=== PATIENT | female | born 1960 | race Caucasian/White ===

== ENCOUNTER 2017-09-19 09:38 | Inpatient (IN) | payer BC, SELFPAY ==
[2017-09-19] VITALS (11 sets, daily range): BP systolic 125–147; BP diastolic 63–82; PULSE 58–80; RESP 16–20; TEMP 36.7–37.1; O2SAT 96–99; BMI 35.4
--- NOTE | 2017-09-19 10:00 | EKG12_ITS ---
Test Reason : DYSRHYTHMIA Blood Pressure : / mmHG Vent. Rate : 071 BPM Atrial Rate : 071 BPM P-R Int : 144 ms QRS Dur : 086 ms QT Int : 394 ms P-R-T Axes : 049 051 073 degrees QTc Int : 428 ms Normal sinus rhythm Normal ECG Confirmed by ANTONIO BRENNAN, VICTOR HUGO ([id number]), brands editor LEANDRA WALTERS ([id number]) on 09/24/2017 2:44:13 PM Referred By: KAVITA Confirmed By:VICTOR HUGO ALVAREZ MD
--- NOTE | 2017-09-19 10:00 | RAD_ITS ---
STUDY: X-RAY CHEST REASON FOR EXAM: Female, 57 years old. Cough, confusion TECHNIQUE: Single AP portable view of the chest. COMPARISON: None. FINDINGS: EKG leads overlie the chest The lungs are clear and expanded. There is no demonstrated pleural abnormality. Normal size heart. Normal mediastinum and pricilla. Normal visualized pulmonary arteries. Normal visualized aortic arch and descending thoracic aorta. Normal visualized thoracic spine. Normal visualized ribs, clavicles, and shoulders. There is no demonstrated abnormality of the visualized soft tissue structures of the upper abdomen. RAD/Chest 1 View IMPRESSION: Normal x-ray examination of the chest. Electronically Signed: Chad Boston MD at 10:55 EDT , Service support ,
--- NOTE | 2017-09-19 10:00 | CT_ITS ---
STUDY: CT BRAIN WITHOUT CONTRAST REASON FOR EXAM: Female, 57 years old. Headache x1 week, dizziness RADIATION DOSAGE (If Supplied By Facility): CTDIvol = ( 44.99 ) mGy, DLP = ( 796.11 ) mGycm TECHNIQUE: Transaxial CT imaging of the brain was performed without administration of intravenous contrast material. Individualized dose optimization techniques were used for this CT. COMPARISON: None. FINDINGS: Normal soft tissue structures. Normal calvarium. There is asymmetric edema in the right frontal lobe suggesting either previous infarct or underlying lesion. Further evaluation with contrasted CT or MRI recommended. There is no midline shift, there is some subtle mass effect upon the sulci and gyral pattern in the right frontal lobe. There is no intracranial hemorrhage. There are no findings of an acute ischemic infarction. Normal visualized paranasal sinuses. CT/Brain/Head without Contrast IMPRESSION: No acute hemorrhage but there is abnormal hypoattenuation in the right frontal lobe suggesting subacute infarct or underlying lesion. Recommend further evaluation with contrasted CT or MRI. There is no midline shift. N.B. : The above information has been verbally conveyed by Chad Boston MD to Satish Jj, Covering Physician, on 09/19/2017 10:53:50 (ET). Electronically Signed: Chad Boston MD at 10:54 EDT , Service support ,
[2017-09-19 10:25] LABS: Absolute Lymphocyte Count 1.34 X10^3/ul (0.83-4.51); Absolute Neutrophil Count 11.3 X10^3/uL (2.0-7.7); Basophil# 0.01 X10^3/uL; Basophil% 0.1 % (0-1); Hematocrit 39.2 % (37-47); Hemoglobin 12.8 g/dl (12.0-15.0); Lymphocyte # 1.34 X10^3/ul (4.0); Lymphocyte % 10.1 % (19-41); Mean Corp Hgb Conc 32.7 g/gl (32-36); Mean Corpuscular Hgb 29.6 pg (27.0-32.0); Mean Corpuscular Volume 90.7 fL (81-99); Mean Platelet Vol. 10.2 fl (6.2-12.0); Monocyte# 0.54 X10^3/uL; Monocyte% 4.1 % (0-10); Neutrophil # 11.32 X10^3/uL (2.7-7.7); Neutrophil % 85.5 % (47-70); Platelet Count 272 K/mm3 (150-450); RBC Distribution Width SD 43.2 fl (35.1-43.9); Red Blood Count 4.32 M/mm3 (4.2-5.4); White Blood Count 13.2 K/mm3 (4.4-11.0)
[2017-09-19 10:27] LABS: POSITIVE COUNT NO; POSITIVE DIFFERENTIAL NO; POSITIVE MORPHOLOGY NO
[2017-09-19 10:45] LABS: Anion Gap 7 (5-15); BUN 14 mg/dL (7-18); Calcium,Total 9.1 mg/dL (8.5-10.1); Chloride 107 mmol/L (98-107); Creatinine, Serum 0.74 mg/dL (0.55-1.02); EST Glomerular Filtration Rate 87 mL/min (>60); Est Glom Filt Rate - Afr Amer 105 mL/min (>60); Estimated Creatinine Clearance 77.29 ml/min; Glucose 183 mg/dL (74-106); Potassium 3.6 mmol/L (3.5-5.1); Sodium Level 141 mmol/L (136-145)
[2017-09-19 10:59] LABS: Partial Thromboplast Time 32.9 Seconds (24.1-36.2)
[2017-09-19 11:01] LABS: Bedside Glucose 173 mg/dL (70-110)
--- NOTE | 2017-09-19 11:07 | CT_ITS ---
STUDY: CT BRAIN WITH CONTRAST REASON FOR EXAM: Female, 57 years old. Confusion, headache RADIATION DOSAGE (If Supplied By Facility): CTDIvol = ( 44.99 ) mGy, DLP = ( 846.73 ) mGycm TECHNIQUE: Transaxial CT imaging of the brain was performed post contrast administration. The examination was performed with intravenous administration of 50 ml of Isovue 370 contrast material. Individualized dose optimization techniques were used for this CT. COMPARISON: None. FINDINGS: Normal soft tissue structures. Normal calvarium. There is no suspicious lesion after contrast administration. There is persistent hypoattenuation in the right frontal/temporal region consistent with subacute infarct. There is no midline shift but there is subtle mass effect upon the sulci and gyral pattern within the right frontal lobe. Normal size ventricles and extra-axial spaces for the patient's age. Normal white matter tracts of the cerebral hemispheres. Normal basal ganglia and thalami. Normal brainstem. Normal cerebellum. There is no intracranial hemorrhage. There are no findings of an acute ischemic infarction. Normal visualized paranasal sinuses. CT/Brain/Head WITH Contrast IMPRESSION: No suspicious enhancement after contrast demonstration to suspect an underlying mass lesion. Persistent hypoattenuation the right frontal/temporal region consistent with subacute infarct. No acute hemorrhage. Electronically Signed: Chad Boston MD at 11:29 EDT , Service support ,
[2017-09-19] MEDS: Ondansetron 4 MG/2 ML Vial IV (11:33)
[2017-09-19] MEDS: Morphine 4 MG/ML Syringe IV (11:33)
--- NOTE | 2017-09-19 12:05 | ED.VISSUMM ---
- ER Visit Summary Date of Service: 09/19/17 Chief Complaint: Weakness and headache History of Present Illness: The patient is a 57 F who presents with headache and weakness. She complains of a gradual onset frontal headache over the past 1 week. She currently rates this as a 7 out of 10. No fall no injury. She states she has difficulty concentrating. She also has noticed some weakness and tingling in her left arm over the past week. No slurred speech or speech difficulty. No recent illness otherwise. No fevers chest pain shortness of breath vomiting diarrhea. She has a history of RSD but no other medical history such as diabetes hypertension hyperlipidemia. Physical Examination: Afebrile vitals are unremarkable Moist mucous membranes Heart regular rate and rhythm Lungs are clear Abdomen soft Patient alert and oriented NIH stroke scale is 2 she does have some mild left facial droop as well as decreased sensation to light touch of the left arm and left leg she has some weakness in the left hand but does not have drift in the left arm she has no ataxia Test Results: EKG shows sinus rhythm at a rate of 71. Labs notable for white blood cell count 13.2. Coagulation studies normal. Troponin negative. Chest x-ray normal. CT the head shows no acute hemorrhage there is abnormal in attenuation in the right frontal lobe concerning for subacute infarct versus an underlying mass lesion. CT head and IV contrast shows no suspicious enhancement to suggest underlying mass so this is more suggestive of subacute infarct. Emergency Department Course and Treatment: As above. Patient was unable to get an MRI due to a history of spinal stimulator. Patient notes that the stimulator itself has been removed but she still has the leads in place and was told that she cannot get an MRI. I did discuss the patient with Dr. Boucher and patient will undergo further inpatient workup. Patient to be admitted under the hospitalist service. Treatment Plan: [] Disposition: Admit Impression: Subacute right frontal stroke This note was generated with [employer] dictation software. It may contain incorrect words, spelling, and punctuation that were not noted in review of the chart prior to signing ED Disposition - Plan for ED Patient: Chief Complaint: Confusion Referrals: Sammi Rowley MD [Primary Care Provider] -
--- NOTE | 2017-09-19 12:08 | ED.DCSUM_ITS ---
- ER Visit Summary Date of Service: 09/19/17 Chief Complaint: Weakness and headache History of Present Illness: The patient is a 57 F who presents with headache and weakness. She complains of a gradual onset frontal headache over the past 1 week. She currently rates this as a 7 out of 10. No fall no injury. She states she has difficulty concentrating. She also has noticed some weakness and tingling in her left arm over the past week. No slurred speech or speech difficulty. No recent illness otherwise. No fevers chest pain shortness of breath vomiting diarrhea. She has a history of RSD but no other medical history such as diabetes hypertension hyperlipidemia. Physical Examination: Afebrile vitals are unremarkable Moist mucous membranes Heart regular rate and rhythm Lungs are clear Abdomen soft Patient alert and oriented NIH stroke scale is 2 she does have some mild left facial droop as well as decreased sensation to light touch of the left arm and left leg she has some weakness in the left hand but does not have drift in the left arm she has no ataxia Test Results: EKG shows sinus rhythm at a rate of 71. Labs notable for white blood cell count 13.2. Coagulation studies normal. Troponin negative. Chest x -ray normal. CT the head shows no acute hemorrhage there is abnormal in attenuation in the right frontal lobe concerning for subacute infarct versus an underlying mass lesion. CT head and IV contrast shows no suspicious enhancement to suggest underlying mass so this is more suggestive of subacute infarct. Emergency Department Course and Treatment: As above. Patient was unable to get an MRI due to a history of spinal stimulator. Patient notes that the stimulator itself has been removed but she still has the leads in place and was told that she cannot get an MRI. I did discuss the patient with Dr. Boucher and patient will undergo further inpatient workup. Patient to be admitted under the hospitalist service. Treatment Plan: [] Disposition: Admit Impression: Subacute right frontal stroke This note was generated with [employer] dictation software. It may contain incorrect words, spelling, and punctuation that were not noted in review of the chart prior to signing ED Disposition - Plan for ED Patient: Chief Complaint: Confusion Referrals: Sammi Rowley MD [Primary Care Provider] -
--- NOTE | 2017-09-19 12:09 | NURSING ---
DR ROLDAN FOR DR WALLS
--- NOTE | 2017-09-19 12:25 | NURSING ---
DR ROLDAN IN WITH PATIENT
--- NOTE | 2017-09-19 12:27 | NURSING ---
110 PROBABLE SUBACUTE RT FRONTAL/TEMPORAL INFARCT, HYPERGLYCEMIA ASHELFAH
--- NOTE | 2017-09-19 12:38 | PCM.HP.STD ---
Problem List (1) Hyperglycemia Status: Acute (2) Acute ischemic stroke Status: Acute (3) Chronic back pain Status: Chronic (4) Anxiety Status: Chronic (5) Reflex sympathetic dystrophy Status: Chronic History of Present Illness Date of Admission: 09/19/17 Chief Complaint: Confusion, headache, left arm weakness. The patient is a 57 year old F with past medical history as mentioned above presented to the emergency room because of confusion, headache and left arm weakness. Patient's daughter mentioned that his mother has been confused and acting unusual at home for the last week. She mentioned that she forgot water running in the kitchen and forgot to close the house door. The patient went to visit her daughter at work today and her daughter mentioned that she was talking to me and was looking past me and she seemed confused. The patient complained of one-week history of headache, both frontal and occipital headache, throbbing headache, 7 out of 10 in severity, not radiating, no associated symptoms and no aggravating or relieving factors. Patient denied blurred vision or slurred speech but her daughter stated that her speech was not normal for the last few days. The patient complains also of left hand and arm numbness and weakness that has been going on for the same duration 1 week. The patient mentioned that her driving skills are getting badly worse and this morning, she was driving on the opposite shantel without knowing. She mentioned that lately, she does not look to have left side when she drives backward and this has been going on for the last week. She does have minimal left facial droop. In the emergency department, her vital signs were stable. Her NIH stroke was 2. She is not a candidate for TPA because her symptoms started 1 week ago. Her routine blood work remarkable for hyperglycemia and mild leukocytosis which is likely reactive. Chest x-ray showed no acute findings. CT scan brain without contrast showed right frontal lobe abnormal hypoattenuation suggestive of subacute infarction. MRI brain, to be done because patient had spinal cord stimulator that was removed but still have the connectors and she was informed that she cannot have an MRI. CT scan brain with contrast revealed no suspicious enhancing lesions, no masses, revealed persistent hypoattenuation on the right frontal/temporal region consistent with subacute infarct. Her EKG revealed normal sinus rhythm without evidence of acute ischemic changes or cardiac arrhythmias. She is being admitted for subacute right frontal/temporal infarct and hypoglycemia. Past Medical History Past Medical History (Chronic Problems): Chronic Problems Chronic back pain (Chronic) Anxiety (Chronic) Reflex sympathetic dystrophy (Chronic) Allergies acetaminophen [From Darvocet-N] Adverse Reaction (Verified 09/19/17 09:40) Nausea hydrocodone [From Vicodin] Adverse Reaction (Verified 09/19/17 09:40) Other pentazocine [From Talwin] Adverse Reaction (Verified 09/19/17 09:40) Other propoxyphene [From Darvocet-N] Adverse Reaction (Verified 09/19/17 09:40) Nausea Home Medications: Ambulatory Orders Medication Instructions Recorded ALPRAZolam [Xanax] 1 mg PO QHS 09/19/17 Celecoxib [Celebrex] 200 mg PO QHS 09/19/17 Methadone HCl [(None)] 10 mg PO Q8H 09/19/17 Oxycodone HCl/Acetaminophen 1 tablet PO TID PRN PRN 09/19/17 [Percocet 5/325] Surgical History: cholecystectomy, - - Spinal cord stimulator, status post removal, still have the connectors and wires. Psychiatric History: Anxiety [employer] History: No pertinent [employer] history Smoking Status: Former smoker Alcohol: None Drugs: None - *Family History Maternal History Items: Heart Disease, Hypertension, No pertinent history Review of Systems Constitutional: Denies: Anorexia, Chills, Fever, Weakness Eyes: Denies: Blurred vision, Double vision, Drainage, Redness HEENT: Denies: Difficulty Hearing, Ear Pain, Eye Pain, Nasal Congestion, Sore Throat Cardiovascular: Denies: Chest Pain, Chest Pressure, Chest Tightness, Heaviness, Light Headedness, Palpitations, Syncope Respiratory: Denies: Cough, Pleuritic Pain, Shortness of Breath, Sputum production, Wheezing Gastrointestinal: Denies: Abdominal Pain, Constipation, Diarrhea, Nausea, Vomiting Genitourinary: Denies: Dysuria, Frequency, Hematuria Musculoskeletal: Denies: Arm Pain, Back Pain, Foot Pain Skin: Denies: Dryness, Rash Neurological: Reports: Change in Speech, Confusion, Focal weakness, Headaches, Numbness, Tingling. Denies: Balance problems, Blurred vision Psychiatric: Reports: Anxiety. Denies: Depression, Suicidal Ideations Endocrine: Denies: Change in Body Habitus, Polydipsia VTE Information - Inpt Only VTE Present on Admission: No VTE Mechan Device Prophylaxis: None VTE Pharm Prophylaxis ordered?: Yes Patient Problems: Active and Suspected Problems Hyperglycemia (Acute) Acute ischemic stroke (Acute) - Physical Exam General: Alert, Oriented x3, Cooperative, No apparent distress HEENT: Atraumatic, PERRLA, EOMI, Normocephalic Oral: Moist Mucosa, No Gingival or Mucosal Lesions/ Ulcerations Neck: Supple, No JVD, Negative Carotid Bruits, Trachea Midline, Thyroid Normal Size and Texture Lungs: Clear to auscultation, Normal air movement, No rhonchi, No wheeze, No rales Cardiovascular: Regular rate, Regular Rhythm, Normal S1, Normal S2, No murmurs Abdomen: Bowel Sounds Present, Soft, Non Tender, Non-Distended, No Hepato-splenomegaly Extremities: No clubbing, No cyanosis, No edema Skin: No rashes, No breakdown Lymphatic: No Cervical, Supraclavicular, or Inguinal Adenopathy Neurological: - - Minimal left-sided facial droop, other cranial nerves are intact. Minimal weakness on the left upper extremity, normal power on all other limbs. Left-sided neglect. Psych/Mental Status: Normal Affect, Appropriate, Alert and oriented to time, place, person, mood and affect Vital Signs Temp Pulse Resp BP Pulse Ox 98.1 F 67 18 145/82 H 99 09/19/17 09:40 09/19/17 11:26 09/19/17 11:26 09/19/17 11:26 09/19/17 11:26 Oxygen Delivery Method Room Air Weight: 213 lb 2.992 oz Body Mass Index (BMI) 35.4 Finger Stick Blood Glucose 173 Laboratory Tests Past 24 Hrs 09/19/17 09/19/17 09/19/17 10:07 10:07 10:07 WBC 13.2 H RBC 4.32 Hgb 12.8 Hct 39.2 MCV 90.7 MCH 29.6 MCHC 32.7 RDW 13.0 RDW Differential 43.2 Plt Count 272 MPV 10.2 Immature Gran % (Auto) 0.200 Neut % (Auto) 85.5 H Lymph % (Auto) 10.1 L Dodge % (Auto) 4.1 Eos % (Auto) 0.0 Baso % (Auto) 0.1 Absolute Neuts (auto) 11.3 H Absolute Lymphs (auto) 1.34 Total Counted Not Reportable PT 13.0 INR 1.0 APTT 32.9 Sodium 141 Potassium 3.6 Chloride 107 Carbon Dioxide 27.0 Anion Gap 7 BUN 14 Creatinine 0.74 Estim Creat Clear Calc 77.29 Est GFR (MDRD) Af Amer 105 Est GFR (MDRD) Non-Af 87 BUN/Creatinine Ratio 19.0 Glucose 183 H Calcium 9.1 Troponin I < 0.015 POC Glucose 09/19/17 10:53 POC Glucose 173 H Clinical Impression(s) from Imaging Studies Brain CT 09/19/17 10:00 IMPRESSION: No acute hemorrhage but there is abnormal hypoattenuation in the right frontal lobe suggesting subacute infarct or underlying lesion. Recommend further evaluation with contrasted CT or MRI. There is no midline shift. N.B. : The above information has been verbally conveyed by Chad Boston MD to Satish Jj, Covering Physician, on 09/19/2017 10:53:50 (ET). Electronically Signed: Chad Boston MD at 10:54 EDT , Service support , Chest X-Ray 09/19/17 10:00 IMPRESSION: Normal x-ray examination of the chest. Electronically Signed: Chad Boston MD at 10:55 EDT , Service support , Brain CT 09/19/17 11:07 IMPRESSION: No suspicious enhancement after contrast demonstration to suspect an underlying mass lesion. Persistent hypoattenuation the right frontal/temporal region consistent with subacute infarct. No acute hemorrhage. Electronically Signed: Chad Boston MD at 11:29 EDT , Service support , Assessment/Plan All Active Problems Hyperglycemia (Acute) Acute ischemic stroke (Acute) This is a 57 presented to the emergency room because of headache, left arm weakness, left-sided neglect and confusion and she was found to have right frontal/temporal region subacute infarct as well as hyperglycemia without history of diabetes she is being admitted for evaluation and treatment. #1 headache/left facial droop/left-sided neglect/left arm weakness and numbness: CT scan brain with contrast revealed subacute infarction of the right frontal/temporal region. She has no risk factors for stroke. No significant family history of recurrent stroke. MRI brain cannot be done because she has spinal cord stimulator connectors. Her blood pressure this time stable. Her symptoms started 1 week ago, she is not a candidate for TPA. Plan: Admit to PCU, cardiac monitoring, NIH stroke scale, lipid profile, start aspirin and Lipitor, 2D echocardiogram, bilateral carotid Doppler, neurology consult, PT OT evaluation and treatment. #2 hyperglycemia: Without history of diabetes. Blood sugar was 183, repeat sugar was 173. Plan: Accu-Cheks every 6 hours, hemoglobin A1c. #3 chronic back pain: Status post removal of spinal cord stimulator few years ago, chronic tubes are still in place. Plan to continue methadone and Percocet as needed for pain. #4 anxiety: Continue Xanax nightly. #5 reflex sympathetic dystrophy: Continue methadone and Percocet as needed for pain. #6 DVT prophylaxis: Subcu Lovenox. This note was generated with [employer] dictation software. It may contain incorrect words, spelling, and punctuation that were not noted in checking the note before signing. Code Visit Inpatient E&M: 27876 Init Hosp L3
--- NOTE | 2017-09-19 12:49 | HP.PCM_ITS ---
Problem List (1) Hyperglycemia Status: Acute (2) Acute ischemic stroke Status: Acute (3) Chronic back pain Status: Chronic (4) Anxiety Status: Chronic (5) Reflex sympathetic dystrophy Status: Chronic History of Present Illness Date of Admission: 09/19/17 Chief Complaint: Confusion, headache, left arm weakness. The patient is a 57 year old F with past medical history as mentioned above presented to the emergency room because of confusion, headache and left arm weakness. Patient's daughter mentioned that his mother has been confused and acting unusual at home for the last week. She mentioned that she forgot water running in the kitchen and forgot to close the house door. The patient went to visit her daughter at work today and her daughter mentioned that she was talking to me and was looking past me and she seemed confused. The patient complained of one-week history of headache, both frontal and occipital headache , throbbing headache, 7 out of 10 in severity, not radiating, no associated symptoms and no aggravating or relieving factors. Patient denied blurred vision or slurred speech but her daughter stated that her speech was not normal for the last few days. The patient complains also of left hand and arm numbness and weakness that has been going on for the same duration 1 week. The patient mentioned that her driving skills are getting badly worse and this morning, she was driving on the opposite shantel without knowing. She mentioned that lately, she does not look to have left side when she drives backward and this has been going on for the last week. She does have minimal left facial droop. In the emergency department, her vital signs were stable. Her NIH stroke was 2. She is not a candidate for TPA because her symptoms started 1 week ago. Her routine blood work remarkable for hyperglycemia and mild leukocytosis which is likely reactive. Chest x-ray showed no acute findings. CT scan brain without contrast showed right frontal lobe abnormal hypoattenuation suggestive of subacute infarction. MRI brain, to be done because patient had spinal cord stimulator that was removed but still have the connectors and she was informed that she cannot have an MRI. CT scan brain with contrast revealed no suspicious enhancing lesions, no masses, revealed persistent hypoattenuation on the right frontal/temporal region consistent with subacute infarct. Her EKG revealed normal sinus rhythm without evidence of acute ischemic changes or cardiac arrhythmias. She is being admitted for subacute right frontal/temporal infarct and hypoglycemia. Past Medical History Past Medical History (Chronic Problems): Chronic Problems Chronic back pain (Chronic) Anxiety (Chronic) Reflex sympathetic dystrophy (Chronic) Allergies acetaminophen [From Darvocet-N] Adverse Reaction (Verified 09/19/17 09:40) Nausea hydrocodone [From Vicodin] Adverse Reaction (Verified 09/19/17 09:40) Other pentazocine [From Talwin] Adverse Reaction (Verified 09/19/17 09:40) Other propoxyphene [From Darvocet-N] Adverse Reaction (Verified 09/19/17 09:40) Nausea Home Medications: Ambulatory Orders Medication Instructions Recorded ALPRAZolam [Xanax] 1 mg PO QHS 09/19/17 Celecoxib [Celebrex] 200 mg PO QHS 09/19/17 Methadone HCl [(None)] 10 mg PO Q8H 09/19/17 Oxycodone HCl/Acetaminophen 1 tablet PO TID PRN PRN 09/19/17 [Percocet 5/325] Surgical History: cholecystectomy, - - Spinal cord stimulator, status post removal, still have the connectors and wires. 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 Smoking Status: Former smoker Alcohol: None Drugs: None - *Family History Maternal History Items: Heart Disease, Hypertension, No pertinent history Review of Systems Constitutional: Denies: Anorexia, Chills, Fever, Weakness Eyes: Denies: Blurred vision, Double vision, Drainage, Redness HEENT: Denies: Difficulty Hearing, Ear Pain, Eye Pain, Nasal Congestion, Sore Throat Cardiovascular: Denies: Chest Pain, Chest Pressure, Chest Tightness, Heaviness, Light Headedness, Palpitations, Syncope Respiratory: Denies: Cough, Pleuritic Pain, Shortness of Breath, Sputum production, Wheezing Gastrointestinal: Denies: Abdominal Pain, Constipation, Diarrhea, Nausea, Vomiting Genitourinary: Denies: Dysuria, Frequency, Hematuria Musculoskeletal: Denies: Arm Pain, Back Pain, Foot Pain Skin: Denies: Dryness, Rash Neurological: Reports: Change in Speech, Confusion, Focal weakness, Headaches, Numbness, Tingling. Denies: Balance problems, Blurred vision Psychiatric: Reports: Anxiety. Denies: Depression, Suicidal Ideations Endocrine: Denies: Change in Body Habitus, Polydipsia VTE Information - Inpt Only VTE Present on Admission: No VTE Mechan Device Prophylaxis: None VTE Pharm Prophylaxis ordered?: Yes Patient Problems: Active and Suspected Problems Hyperglycemia (Acute) Acute ischemic stroke (Acute) - Physical Exam General: Alert, Oriented x3, Cooperative, No apparent distress HEENT: Atraumatic, PERRLA, EOMI, Normocephalic Oral: Moist Mucosa, No Gingival or Mucosal Lesions/ Ulcerations Neck: Supple, No JVD, Negative Carotid Bruits, Trachea Midline, Thyroid Normal Size and Texture Lungs: Clear to auscultation, Normal air movement, No rhonchi, No wheeze, No rales Cardiovascular: Regular rate, Regular Rhythm, Normal S1, Normal S2, No murmurs Abdomen: Bowel Sounds Present, Soft, Non Tender, Non-Distended, No Hepato- splenomegaly Extremities: No clubbing, No cyanosis, No edema Skin: No rashes, No breakdown Lymphatic: No Cervical, Supraclavicular, or Inguinal Adenopathy Neurological: - - Minimal left-sided facial droop, other cranial nerves are intact. Minimal weakness on the left upper extremity, normal power on all other limbs. Left-sided neglect. Psych/Mental Status: Normal Affect, Appropriate, Alert and oriented to time, place, person, mood and affect Vital Signs Temp Pulse Resp BP Pulse Ox 98.1 F 67 18 145/82 H 99 09/19/17 09:40 09/19/17 11:26 09/19/17 11:26 09/19/17 11:26 09/19/17 11:26 Oxygen Delivery Method Room Air Weight: 213 lb 2.992 oz Body Mass Index (BMI) 35.4 Finger Stick Blood Glucose 173 Laboratory Tests Past 24 Hrs 09/19/17 09/19/17 09/19/17 10:07 10:07 10:07 WBC 13.2 H RBC 4.32 Hgb 12.8 Hct 39.2 MCV 90.7 MCH 29.6 MCHC 32.7 RDW 13.0 RDW Differential 43.2 Plt Count 272 MPV 10.2 Immature Gran % (Auto) 0.200 Neut % (Auto) 85.5 H Lymph % (Auto) 10.1 L [place] % (Auto) 4.1 Eos % (Auto) 0.0 Baso % (Auto) 0.1 Absolute Neuts (auto) 11.3 H Absolute Lymphs (auto) 1.34 Total Counted Not Reportable PT 13.0 INR 1.0 APTT 32.9 Sodium 141 Potassium 3.6 Chloride 107 Carbon Dioxide 27.0 Anion Gap 7 BUN 14 Creatinine 0.74 Estim Creat Clear Calc 77.29 Est GFR (MDRD) Af Amer 105 Est GFR (MDRD) Non-Af 87 BUN/Creatinine Ratio 19.0 Glucose 183 H Calcium 9.1 Troponin I < 0.015 POC Glucose 09/19/17 10:53 POC Glucose 173 H Clinical Impression(s) from Imaging Studies Brain CT 09/19/17 10:00 IMPRESSION: No acute hemorrhage but there is abnormal hypoattenuation in the right frontal lobe suggesting subacute infarct or underlying lesion. Recommend further evaluation with contrasted CT or MRI. There is no midline shift. N.B. : The above information has been verbally conveyed by Chad Boston MD to Satish Jj, Covering Physician, on 09/19/2017 10:53:50 (ET). Electronically Signed: Chad Boston MD at 10:54 EDT , Service support , Chest X-Ray 09/19/17 10:00 IMPRESSION: Normal x-ray examination of the chest. Electronically Signed: Chad Boston MD at 10:55 EDT , Service support , Brain CT 09/19/17 11:07 IMPRESSION: No suspicious enhancement after contrast demonstration to suspect an underlying mass lesion. Persistent hypoattenuation the right frontal/temporal region consistent with subacute infarct. No acute hemorrhage. Electronically Signed: Chad Boston MD at 11:29 EDT , Service support , Assessment/Plan All Active Problems Hyperglycemia (Acute) Acute ischemic stroke (Acute) This is a 57 presented to the emergency room because of headache, left arm weakness, left-sided neglect and confusion and she was found to have right frontal/temporal region subacute infarct as well as hyperglycemia without history of diabetes she is being admitted for evaluation and treatment. #1 headache/left facial droop/left-sided neglect/left arm weakness and numbness : CT scan brain with contrast revealed subacute infarction of the right frontal/ temporal region. She has no risk factors for stroke. No significant family history of recurrent stroke. MRI brain cannot be done because she has spinal cord stimulator connectors. Her blood pressure this time stable. Her symptoms started 1 week ago, she is not a candidate for TPA. Plan: Admit to PCU, cardiac monitoring, NIH stroke scale, lipid profile, start aspirin and Lipitor, 2D echocardiogram, bilateral carotid Doppler, neurology consult, PT OT evaluation and treatment. #2 hyperglycemia: Without history of diabetes. Blood sugar was 183, repeat sugar was 173. Plan: Accu-Cheks every 6 hours, hemoglobin A1c. #3 chronic back pain: Status post removal of spinal cord stimulator few years ago, chronic tubes are still in place. Plan to continue methadone and Percocet as needed for pain. #4 anxiety: Continue Xanax nightly. #5 reflex sympathetic dystrophy: Continue methadone and Percocet as needed for pain. #6 DVT prophylaxis: Subcu Lovenox. This note was generated with [employer] dictation software. It may contain incorrect words, spelling, and punctuation that were not noted in checking the note before signing. Code Visit Inpatient E&M: 27962 Init Hosp L3
--- NOTE | 2017-09-19 13:11 | CDU_ITS ---
Reason For Study: CVA Rt. Velocities/BP Lt. Velocities/BP Prox CCA 89.1/13.5 cm/sec. Prox CCA 98.5/24.6 cm/sec. Mid CCA 69.2/15.8 cm/sec. Mid CCA 68.6/18.2 cm/sec. Dist CCA 73.9/17.6 cm/sec. Dist CCA 78.6/22.3 cm/sec. Prox ICA 51.0/11.1 cm/sec. Prox ICA 70.7/25.9 cm/sec. Mid ICA 36.9/19.3 cm/sec. Mid ICA 71.8/23.8 cm/sec. Dist ICA 48.7/22.3 cm/sec. Dist ICA 77.5/24.3 cm/sec. Rt. ICA/CCA = .7. Lt. ICA/CCA = 1.1. Prox ECA 108/19.6 cm/sec. Prox ECA 123/15.7 cm/sec. Rt. Vert. 61.0/22.9 cm/sec. Lt. Vert. 37.5/14.7 cm/sec. Right Extracranial There is intimal thickening but no significant atherosclerotic plaque noted in the right common carotid artery. There is intimal thickening but no significant atherosclerotic plaque noted in the right internal carotid artery. There is heterogeneous, irregular atherosclerotic plaque noted in the right external carotid artery. Antegrade flow is noted in the right vertebral artery. Left Extracranial There is intimal thickening but no significant atherosclerotic plaque noted in the left common carotid artery. There is intimal thickening but no significant atherosclerotic plaque noted in the left internal carotid artery. There is intimal thickening but no significant atherosclerotic plaque noted in the left external carotid artery. Antegrade flow is noted in the left vertebral artery. Procedure Carotid Duplex 34043. The exam was diagnostic. Exam performed portable in patient room. Interpretation Summary No significant atherosclerotic plaque or stenosis noted in the internal carotid arteries bilaterally. Flow within the vertebral arteries is antegrade bilaterally. Ordering Physician: Chata Phipps Performed By: Domingo Lee RVT
--- NOTE | 2017-09-19 13:11 | ECHOD_ITS ---
Reason For Study: TIA/CVA Procedure This was a 2D Doppler, Color Flow transthoracic echocardiogram. The exam was of fair technical quality due to body habitus. Exam performed portable in patient room. Left Ventricle Normal LV size. Apical false tendon noted. Left ventricular systolic function is normal. The estimated ejection fraction is 65 %. Normal diastology for age. No regional wall motion abnormalities noted. Right Ventricle Normal RV size. Normal systolic function. Atria Normal left atrium. Normal right atrium. No doppler evidence for ASD. Bubble contrast study negative for right to left interatrial shunt. Mitral Valve There is no mitral annular calcification. Normal mitral valve. Trivial mitral valve insufficiency. Tricuspid Valve Normal tricuspid valve. Trivial tricuspid valve insufficiency. Unable to estimate RV systolic pressure/pulmonary artery pressure due to technically difficult study. Aortic Valve Trisinus/trileaflet aortic valve. Normal aortic valve. Pulmonic Valve The pulmonic valve is not well visualized. Great Vessels Normal sized aortic root. Pericardium/Pleural No pericardial effusion. Medication Performed a rapid injection of agitated mix of 9 cc saline and 1cc air to assess for atrial septal defect. MMode/2D Measurements & Calculations LVIDd: 4.7 cm IVSd: 0.90 cm Ao root diam: 3.0 cm LVIDs: 2.9 cm LVPWd: 0.87 cm LA dimension: 3.5 cm FS: 38.8 % LAV(MOD-bp): 44.3 ml LVAd ap4: 30.7 cm2 SV(MOD-sp4): 69.2 ml LAV(MOD-bp) Indexed: 21.8 ml/m2 EDV(MOD-sp4): 108.0 ml LAV(MOD-sp2): 40.9 ml EDV(sp4-el): 112.4 ml LAV(MOD-sp4): 43.4 ml LVAs ap4: 16.5 cm2 ESV(MOD-sp4): 38.9 ml ESV(sp4-el): 40.7 ml EF(MOD-sp4): 64.0 % EF(sp4-el): 63.8 % SV(sp4-el): 71.7 ml LA A4 area: 17.7 cm2 RA A4 area: 16.1 cm2 Time Measurements MV dec time: 0.27 sec Doppler Measurements & Calculations MV E max yvan: 106.9 cm/sec Lat Peak E' Yvan: 13.0 cm/sec Med Peak E' Yvan: 10.5 cm/sec MV A max yvan: 76.7 cm/sec E/E' lat: 8.2 E/E' med: 10.1 MV E/A: 1.4 Ao V2 max: 165.7 cm/sec LV V1 max: 132.1 cm/sec PA V2 max: 130.7 cm/sec Ao max P.0 mmHg LV V1 max P.0 mmHg Interpretation Summary Left ventricular systolic function is normal. The estimated ejection fraction is 65 %. Apical false tendon noted. Trivial mitral valve insufficiency. Trivial tricuspid valve insufficiency. Unable to estimate RV systolic pressure/pulmonary artery pressure due to technically difficult study. Normal diastology for age. Bubble contrast study negative for right to left interatrial shunt. Ordering Physician: Chata Phipps Referring Physician: ANUJ HANSON Performed By: Coby Berumen RDCS
--- NOTE | 2017-09-19 13:34 | NURSING ---
per pt she does not take immunizations
[2017-09-19 14:03] LABS: Hemoglobin A1c 5.7 % (4.2-6.3)
[2017-09-19] MEDS: oxyCODONE 5 MG Tablet PO ×2 (15:00→21:10)
[2017-09-19 18:00] LABS: Bedside Glucose 119 mg/dL (70-110)
[2017-09-19] MEDS: Atorvastatin Calcium 80 MG Tablet PO (21:10)
[2017-09-19] MEDS: Celecoxib 200 MG Capsule PO (21:10)
[2017-09-19] MEDS: ALPRAZolam 0.5 MG Tablet 1 MG PO (21:11)
[2017-09-20] VITALS (12 sets, daily range): BP systolic 104–130; BP diastolic 46–80; PULSE 53–65; RESP 17–18; TEMP 36.4–36.8; O2SAT 97–99; BMI 35.4
[2017-09-20 00:51] LABS: Bedside Glucose 112 mg/dL (70-110)
--- NOTE | 2017-09-20 05:06 | CT_ITS ---
STUDY: CTA OF THE BRAIN REASON FOR EXAM: Female, 57 years old. CVA and increasing left arm weakness RADIATION DOSAGE (If Supplied By Facility): CTDIvol = ( 31.19 ) mGy, DLP = ( 1548.29 ) mGycm TECHNIQUE: CT angiography was performed with a multi-detector CT scanner. Data acquisition was obtained from the skull base through the vertex following intravenous administration of 100 ml of Isovue-370. MIP images were reconstructed from the axial data set. Post-processing of the angiographic images was performed, with multiplanar reformation and 3D reconstruction. Individualized dose optimization techniques were used for this CT. COMPARISON: Head CT 09/19/2017 FINDINGS: Normal bilateral petrous carotid arteries. A significant focal stenosis of the supraclinoid segment of the right internal carotid artery is noted with residual lumen diameter of 1 mm. Normal left cavernous carotid artery with a normal supraclinoid bifurcation. Normal right A1 segments of the anterior cerebral artery. Normal left A1 segments of the anterior cerebral artery. Normal intact anterior communicating artery (ACOM). Normal bilateral A2 segments of the anterior cerebral arteries. Normal right M1 and M2 segments of the middle cerebral arteries, with a normal M1 bifurcation. Normal left M1 and M2 segments of the middle cerebral arteries, with a normal M1 bifurcation. Normal right posterior communicating artery (PCOM). Normal left posterior communicating artery (PCOM). Normal bilateral vertebral arteries. Normal basilar artery with a normal basilar bifurcation. The visualized bilateral superior cerebellar (SCA) arteries are normal. Normal bilateral P1, P2 and visualized P3 segments of the posterior cerebral arteries. There is no demonstrated aneurysm of the [place]. CT/CTA Head W/WO Contrast IMPRESSION: A significant focal stenosis of the supraclinoid segment of the right internal carotid artery is noted with residual lumen diameter of 1 mm. No other significant intracranial arterial stenoses are detected. No arterial occlusions are seen. Electronically Signed: Jeremi Callahan MD at 6:12 EDT Tel , Service support ,
--- NOTE | 2017-09-20 05:10 | CT_ITS ---
STUDY: CTA NECK WITH CONTRAST REASON FOR EXAM: Female, 57 years old. CVA, increased left arm weakness RADIATION DOSAGE (If Supplied By Facility): CTDIvol = ( 31.19 ) mGy, DLP = ( 1548.29 ) mGycm TECHNIQUE: CT angiography with multi-detector data acquisition was performed from the aortic arch to the skull base following intravenous administration of 100ML ml of Isovue 370 contrast. MIP images were reconstructed from the axial data set. Post-processing of the angiographic images was performed, with multiplanar reformation and 3D reconstruction. Individualized dose optimization techniques were used for this CT. COMPARISON: None. FINDINGS: AORTIC ARCH: Normal visualized aortic arch. Normal origins of the brachiocephalic, left common carotid, and left subclavian arteries. RIGHT CAROTID ARTERIES: Normal right common carotid artery (CCA). Normal right common carotid bulb. Normal origin of the right internal carotid (ICA) artery without a hemodynamically significant stenosis. Normal visualized cervical portion of the right internal carotid artery. Normal origin of the right external carotid artery (ECA). LEFT CAROTID ARTERIES: Normal left common carotid artery (CCA). Normal left common carotid bulb. Normal origin of the left internal carotid (ICA) artery without a hemodynamically significant stenosis. Normal visualized cervical portion of the left internal carotid artery. Normal origin of the left external carotid artery (ECA). VERTEBRAL ARTERIES: Normal bilateral vertebral arteries. Pulmonary emphysema. CT/CTA Neck W/WO Contrast IMPRESSION: Normal bilateral cervical carotid and vertebral arteries. Electronically Signed: Jeremi Callahan MD at 6:14 EDT Tel , Service support ,
[2017-09-20 05:21] LABS: Bedside Glucose 90 mg/dL (70-110)
[2017-09-20] MEDS: oxyCODONE 5 MG Tablet PO ×3 (06:08→22:22)
[2017-09-20 06:24] LABS: Absolute Lymphocyte Count 2.96 X10^3/ul (0.83-4.51); Absolute Neutrophil Count 5.1 X10^3/uL (2.0-7.7); Basophil# 0.03 X10^3/uL; Basophil% 0.3 % (0-1); Eosinophil# 0.14 X10^3/uL; Eosinophils% 1.6 % (0-5); Hematocrit 36.1 % (37-47); Hemoglobin 11.7 g/dl (12.0-15.0); Lymphocyte # 2.96 X10^3/ul (4.0); Lymphocyte % 34.1 % (19-41); Mean Corp Hgb Conc 32.4 g/gl (32-36); Mean Corpuscular Hgb 30.1 pg (27.0-32.0); Mean Corpuscular Volume 92.8 fL (81-99); Mean Platelet Vol. 10.1 fl (6.2-12.0); Monocyte# 0.43 X10^3/uL; Neutrophil # 5.07 X10^3/uL (2.7-7.7); Neutrophil % 58.5 % (47-70); Platelet Count 225 K/mm3 (150-450); RBC Distribution Width CV 13.1 % (11.6-14.6); RBC Distribution Width SD 43.4 fl (35.1-43.9); Red Blood Count 3.89 M/mm3 (4.2-5.4); White Blood Count 8.7 K/mm3 (4.4-11.0)
[2017-09-20 06:38] LABS: POSITIVE COUNT NO; POSITIVE DIFFERENTIAL NO; POSITIVE MORPHOLOGY NO
[2017-09-20] MEDS: Enoxaparin 40 MG/0.4 ML Syringe SC (06:44)
[2017-09-20 06:47] LABS: Cholesterol 156 mg/dL (200); High Density Lipoprotein 61 mg/dL; Triglycerides 77 mg/dL; Very Low Density Lipoprotein 15 mg/dL (5-40)
--- NOTE | 2017-09-20 07:42 | PCM.PROGNOTE ---
Patient Problems: Active and Suspected Problems Hyperglycemia (Acute) Acute ischemic stroke (Acute) Subjective: Chief complaint: Follow-up after admission for acute stroke and hyperglycemia. Patient seen and examined. No acute events overnight. Still complaining of left upper extremity weakness, headache. Her vital signs are stable, blood pressure stable. - Physical Exam General: Alert, Oriented x3, Cooperative, No apparent distress HEENT: Atraumatic, PERRLA, EOMI, Normocephalic Oral: Moist Mucosa, No Gingival or Mucosal Lesions/ Ulcerations Neck: Supple, No JVD, Negative Carotid Bruits, Trachea Midline, Thyroid Normal Size and Texture Lungs: Clear to auscultation, No rhonchi, No wheeze, No rales, Diminished Cardiovascular: Regular rate, Regular Rhythm, Normal S1, Normal S2, No murmurs Abdomen: Bowel Sounds Present, Soft, Non Tender, Non-Distended, No Hepato-splenomegaly, Obese Extremities: No clubbing, No cyanosis, No edema Lymphatic: No Cervical, Supraclavicular, or Inguinal Adenopathy Neurological: - - Minimal left facial droop, left-sided neglect. Left upper extremity monoparesis. Psych/Mental Status: Normal Affect, Appropriate, Alert and oriented to time, place, person, mood and affect Vital Signs Temp Pulse Resp BP Pulse Ox 97.9 F 64 18 120/74 99 09/20/17 04:48 09/20/17 04:48 09/20/17 04:48 09/20/17 04:48 09/20/17 04:48 Oxygen Delivery Method Room Air Weight: 212 lb 8.41 oz Body Mass Index (BMI) 35.4 Intake and Output for Last 24 Hours 09/18/17 09/19/17 09/20/17 23:59 23:59 23:59 Intake Total 840 / 840 240 / 240 Balance 840 / 840 240 / 240 Laboratory Tests Past 24 Hrs 09/20/17 09/20/17 06:00 06:00 WBC 8.7 RBC 3.89 L Hgb 11.7 L Hct 36.1 L MCV 92.8 MCH 30.1 MCHC 32.4 RDW 13.1 RDW Differential 43.4 Plt Count 225 MPV 10.1 Immature Gran % (Auto) 0.500 Neut % (Auto) 58.5 Lymph % (Auto) 34.1 [place] % (Auto) 5.0 Eos % (Auto) 1.6 Baso % (Auto) 0.3 Absolute Neuts (auto) 5.1 Absolute Lymphs (auto) 2.96 Total Counted Not Reportable Triglycerides 77 Cholesterol 156 LDL Cholesterol 80 VLDL Cholesterol 15 HDL Cholesterol 61 POC Glucose 09/20/17 09/20/17 09/19/17 05:17 00:38 17:39 POC Glucose 90 112 H 119 H Clinical Impression(s) from Imaging Studies Brain CT 09/19/17 10:00 IMPRESSION: No acute hemorrhage but there is abnormal hypoattenuation in the right frontal lobe suggesting subacute infarct or underlying lesion. Recommend further evaluation with contrasted CT or MRI. There is no midline shift. N.B. : The above information has been verbally conveyed by Chad Boston MD to Satish Jj, [facility] Physician, on 09/19/2017 10:53:50 (ET). Electronically Signed: Chad Boston MD at 10:54 EDT , Service support , Chest X-Ray 09/19/17 10:00 IMPRESSION: Normal x-ray examination of the chest. Electronically Signed: Chad Boston MD at 10:55 EDT , Service support , Brain CT 09/19/17 11:07 IMPRESSION: No suspicious enhancement after contrast demonstration to suspect an underlying mass lesion. Persistent hypoattenuation the right frontal/temporal region consistent with subacute infarct. No acute hemorrhage. Electronically Signed: Chad Boston MD at 11:29 EDT , Service support , Head CTA 09/20/17 05:06 IMPRESSION: A significant focal stenosis of the supraclinoid segment of the right internal carotid artery is noted with residual lumen diameter of 1 mm. No other significant intracranial arterial stenoses are detected. No arterial occlusions are seen. Electronically Signed: Jeremi Callahan MD at 6:12 EDT Tel , Service support , Neck CTA 09/20/17 05:10 IMPRESSION: Normal bilateral cervical carotid and vertebral arteries. Electronically Signed: Jeremi Callahan MD at 6:14 EDT Tel , Service support , Medical Necessity - Tobacco Use Smoking Status: Former smoker Assessment/Plan All Active Problems Hyperglycemia (Acute) Acute ischemic stroke (Acute) This is a 57 presented to the emergency room because of headache, left arm weakness, left-sided neglect and confusion and she was found to have right frontal/temporal region subacute infarct as well as hyperglycemia without history of diabetes she is being admitted for evaluation and treatment. #1 Subacute right frontal/temporal region ischemic stroke: With residual minimal left facial droop, left upper extremity monoparesis and left-sided neglect. She is on aspirin and statins. Vital signs stable, blood pressure under control. Overnight, nursing staff noted that weakness of the left upper extremity is worsening for which CTA head and neck performed. CTA of the head revealed significant focal stenosis of the supraclinoid segment of the right internal carotid artery. CTA of the neck revealed no significant vascular disease or stenosis. 2D echocardiogram revealed normal ejection fraction, negative for [id number] shunt and no significant valvular heart disease. Neurology consulted. Patient probably will need transfer to a tertiary care center for vascular surgery evaluation. #2 hyperglycemia: Without history of diabetes. Blood sugar has been around 110s. Hemoglobin A1c was 5.7. No diabetes. Will discontinue Accu-Cheks. #3 chronic back pain: Status post removal of spinal cord stimulator few years ago, chronic tubes are still in place. Stable, continue methadone and Percocet as needed for pain. #4 anxiety: Continue Xanax nightly. #5 reflex sympathetic dystrophy: Continue methadone and Percocet as needed for pain. #6 DVT prophylaxis: Subcu Lovenox. This note was generated with [employer] software. It may contain incorrect words, spelling, and punctuation that were not noted in checking the note before signing.
--- NOTE | 2017-09-20 07:50 | PN_ITS ---
Patient Problems: Active and Suspected Problems Hyperglycemia (Acute) Acute ischemic stroke (Acute) Subjective: Chief complaint: Follow-up after admission for acute stroke and hyperglycemia. Patient seen and examined. No acute events overnight. Still complaining of left upper extremity weakness, headache. Her vital signs are stable, blood pressure stable. - Physical Exam General: Alert, Oriented x3, Cooperative, No apparent distress HEENT: Atraumatic, PERRLA, EOMI, Normocephalic Oral: Moist Mucosa, No Gingival or Mucosal Lesions/ Ulcerations Neck: Supple, No JVD, Negative Carotid Bruits, Trachea Midline, Thyroid Normal Size and Texture Lungs: Clear to auscultation, No rhonchi, No wheeze, No rales, Diminished Cardiovascular: Regular rate, Regular Rhythm, Normal S1, Normal S2, No murmurs Abdomen: Bowel Sounds Present, Soft, Non Tender, Non-Distended, No Hepato- splenomegaly, Obese Extremities: No clubbing, No cyanosis, No edema Lymphatic: No Cervical, Supraclavicular, or Inguinal Adenopathy Neurological: - - Minimal left facial droop, left-sided neglect. Left upper extremity monoparesis. Psych/Mental Status: Normal Affect, Appropriate, Alert and oriented to time, place, person, mood and affect Vital Signs Temp Pulse Resp BP Pulse Ox 97.9 F 64 18 120/74 99 09/20/17 04:48 09/20/17 04:48 09/20/17 04:48 09/20/17 04:48 09/20/17 04:48 Oxygen Delivery Method Room Air Weight: 212 lb 8.41 oz Body Mass Index (BMI) 35.4 Intake and Output for Last 24 Hours 09/18/17 09/19/17 09/20/17 23:59 23:59 23:59 Intake Total 840 / 840 240 / 240 Balance 840 / 840 240 / 240 Laboratory Tests Past 24 Hrs 09/20/17 09/20/17 06:00 06:00 WBC 8.7 RBC 3.89 L Hgb 11.7 L Hct 36.1 L MCV 92.8 MCH 30.1 MCHC 32.4 RDW 13.1 RDW Differential 43.4 Plt Count 225 MPV 10.1 Immature Gran % (Auto) 0.500 Neut % (Auto) 58.5 Lymph % (Auto) 34.1 [place] % (Auto) 5.0 Eos % (Auto) 1.6 Baso % (Auto) 0.3 Absolute Neuts (auto) 5.1 Absolute Lymphs (auto) 2.96 Total Counted Not Reportable Triglycerides 77 Cholesterol 156 LDL Cholesterol 80 VLDL Cholesterol 15 HDL Cholesterol 61 POC Glucose 09/20/17 09/20/17 09/19/17 05:17 00:38 17:39 POC Glucose 90 112 H 119 H Clinical Impression(s) from Imaging Studies Brain CT 09/19/17 10:00 IMPRESSION: No acute hemorrhage but there is abnormal hypoattenuation in the right frontal lobe suggesting subacute infarct or underlying lesion. Recommend further evaluation with contrasted CT or MRI. There is no midline shift. N.B. : The above information has been verbally conveyed by Chad Boston MD to Satish Jj, [facility] Physician, on 09/19/2017 10:53:50 (ET). Electronically Signed: Chad Boston MD at 10:54 EDT , Service support , Chest X-Ray 09/19/17 10:00 IMPRESSION: Normal x-ray examination of the chest. Electronically Signed: Chad Boston MD at 10:55 EDT , Service support , Brain CT 09/19/17 11:07 IMPRESSION: No suspicious enhancement after contrast demonstration to suspect an underlying mass lesion. Persistent hypoattenuation the right frontal/temporal region consistent with subacute infarct. No acute hemorrhage. Electronically Signed: Chad Boston MD at 11:29 EDT , Service support , Head CTA 09/20/17 05:06 IMPRESSION: A significant focal stenosis of the supraclinoid segment of the right internal carotid artery is noted with residual lumen diameter of 1 mm. No other significant intracranial arterial stenoses are detected. No arterial occlusions are seen. Electronically Signed: Jeremi Callahan MD at 6:12 EDT Tel , Service support , Neck CTA 09/20/17 05:10 IMPRESSION: Normal bilateral cervical carotid and vertebral arteries. Electronically Signed: Jeremi Callahan MD at 6:14 EDT Tel , Service support , Medical Necessity - Tobacco Use Smoking Status: Former smoker Assessment/Plan All Active Problems Hyperglycemia (Acute) Acute ischemic stroke (Acute) This is a 57 presented to the emergency room because of headache, left arm weakness, left-sided neglect and confusion and she was found to have right frontal/temporal region subacute infarct as well as hyperglycemia without history of diabetes she is being admitted for evaluation and treatment. #1 Subacute right frontal/temporal region ischemic stroke: With residual minimal left facial droop, left upper extremity monoparesis and left-sided neglect. She is on aspirin and statins. Vital signs stable, blood pressure under control. Overnight, nursing staff noted that weakness of the left upper extremity is worsening for which CTA head and neck performed. CTA of the head revealed significant focal stenosis of the supraclinoid segment of the right internal carotid artery. CTA of the neck revealed no significant vascular disease or stenosis. 2D echocardiogram revealed normal ejection fraction, negative for [id number] shunt and no significant valvular heart disease. Neurology consulted. Patient probably will need transfer to a tertiary care center for vascular surgery evaluation. #2 hyperglycemia: Without history of diabetes. Blood sugar has been around 110s. Hemoglobin A1c was 5.7. No diabetes. Will discontinue Accu-Cheks. #3 chronic back pain: Status post removal of spinal cord stimulator few years ago, chronic tubes are still in place. Stable, continue methadone and Percocet as needed for pain. #4 anxiety: Continue Xanax nightly. #5 reflex sympathetic dystrophy: Continue methadone and Percocet as needed for pain. #6 DVT prophylaxis: Subcu Lovenox. This note was generated with EARTHTORYation software. It may contain incorrect words, spelling, and punctuation that were not noted in checking the note before signing.
[2017-09-20] MEDS: Aspirin 81 MG TAB.CHEW PO (08:58)
--- NOTE | 2017-09-20 11:03 | CASEMGMT ---
According to [place] website, the following are in-network tertiary facilities: [facility], [facility], [facility], and . Stephane ROQUE CM
--- NOTE | 2017-09-20 11:04 | PCM.CONS.GEN ---
Reason for Consult Date of Consultation: 09/20/17 Reason for Consultation: cva History of Present Illness: The patient is a 57 year old right handed white female noted abnormal driving about one week ago, and family noted abnormal language. pt also noted left arm weakness, came to ed and ct showed likely right frontal infarct. remote tobacco use, no hypertension. no sleep studies, occasional snoring. 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 reports stress due to work. doesnt take asa or blood thinners or plavix at home. no hrt at home. Past Medical History Past Medical History (Chronic Problems): Chronic Problems Chronic back pain (Chronic) Anxiety (Chronic) Reflex sympathetic dystrophy (Chronic) Allergies acetaminophen [From Darvocet-N] Adverse Reaction (Verified 09/19/17 09:40) Nausea hydrocodone [From Vicodin] Adverse Reaction (Verified 09/19/17 09:40) Other pentazocine [From Talwin] Adverse Reaction (Verified 09/19/17 09:40) Other propoxyphene [From Darvocet-N] Adverse Reaction (Verified 09/19/17 09:40) Nausea Home Medications: Ambulatory Orders Medication Instructions Recorded ALPRAZolam [Xanax] 1 mg PO QHS 09/19/17 Celecoxib [Celebrex] 200 mg PO QHS 09/19/17 Methadone HCl [(None)] 10 mg PO Q8H 09/19/17 Oxycodone HCl/Acetaminophen 1 tablet PO TID PRN PRN 09/19/17 [Percocet 5/325] Surgical History: cholecystectomy, - - Spinal cord stimulator, status post removal, still have the connectors and wires. 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 pertinent MANAGEMENT EXPERT history Smoking Status: Former smoker Alcohol: None Drugs: None - *Family History Maternal History Items: Heart Disease, Hypertension, No pertinent history Review of Systems Constitutional: Denies: Chills, Fever, Weight Change HEENT: Denies: Head Aches, Sinus Congestion, Sinus Drainage Cardiovascular: Denies: Chest Pain, Palpitations Respiratory: Denies: Cough, Shortness of breath at rest, Sputum production Gastrointestinal: Denies: Abdominal Pain, Nausea, Vomiting Genitourinary: Denies: Dysuria Musculoskeletal: Denies: Joint Pain, Joint Tenderness Skin: Denies: Rash, Wounds Neurological: Denies: Numbness, Tingling, Focal weakness Psychiatric: Denies: Anxiety, Depression, Homicidal Ideations, Suicidal Ideations Hematologic/ Lymphatic: Denies: Easy Bruising, Easy Bleeding Patient Problems: Active and Suspected Problems Hyperglycemia (Acute) Acute ischemic stroke (Acute) - Physical Exam Vital Signs Temp Pulse Resp BP Pulse Ox 36.7 C 61 18 130/80 H 99 09/20/17 08:55 09/20/17 08:55 09/20/17 08:55 09/20/17 08:55 09/20/17 08:55 Oxygen Delivery Method Room Air Weight: 96.4 kg Body Mass Index (BMI) 35.4 Intake and Output for Last 24 Hours 09/18/17 09/19/17 09/20/17 23:59 23:59 23:59 Intake Total 840 / 840 240 / 240 Balance 840 / 840 240 / 240 Laboratory Tests Past 24 Hrs 09/20/17 09/20/17 06:00 06:00 WBC 8.7 RBC 3.89 L Hgb 11.7 L Hct 36.1 L MCV 92.8 MCH 30.1 MCHC 32.4 RDW 13.1 RDW Differential 43.4 Plt Count 225 MPV 10.1 Immature Gran % (Auto) 0.500 Neut % (Auto) 58.5 Lymph % (Auto) 34.1 [place] % (Auto) 5.0 Eos % (Auto) 1.6 Baso % (Auto) 0.3 Absolute Neuts (auto) 5.1 Absolute Lymphs (auto) 2.96 Total Counted Not Reportable Triglycerides 77 Cholesterol 156 LDL Cholesterol 80 VLDL Cholesterol 15 HDL Cholesterol 61 POC Glucose 09/20/17 09/20/17 09/19/17 05:17 00:38 17:39 POC Glucose 90 112 H 119 H Current Home Med List Medication Instructions Recorded Confirmed Type ALPRAZolam [Xanax] 1 mg PO QHS 09/19/17 09/19/17 History Celecoxib [Celebrex] 200 mg PO QHS 09/19/17 09/19/17 History Methadone HCl [(None)] 10 mg PO Q8H 09/19/17 09/19/17 History Oxycodone HCl/Acetaminophen 1 tablet PO TID PRN PRN 09/19/17 09/19/17 History [Percocet 5/325] Current Medications Generic Name Dose Route Start Last Admin Trade Name Freq PRN Reason Stop Dose Admin Alprazolam 1 mg 09/19/17 22:00 09/19/17 21:11 Xanax PO 1 mg QHS [facility] Administration Aspirin 81 mg 09/20/17 08:00 09/20/17 08:58 Aspirin, Baby PO 81 mg DAILY@0800 [facility] Administration Atorvastatin Calcium 80 mg 09/19/17 22:00 09/19/17 21:10 Lipitor PO 80 mg QHS [facility] Administration Celecoxib 200 mg 09/19/17 22:00 09/19/17 21:10 Celebrex PO 200 mg QHS [facility] Administration Enoxaparin Sodium 40 mg 09/20/17 06:00 09/20/17 06:44 Lovenox SC 40 mg DAILY@0600 [facility] Administration Magnesium Hydroxide 30 ml 09/19/17 13:11 Milk Of Magnesia PO DAILY PRN Constipation Methadone HCl 10 mg 09/19/17 14:00 09/20/17 06:09 PO Not Given Q8 PROSPER Ondansetron HCl 4 mg 09/19/17 13:11 Zofran IV Q6H PRN PRN NAUSEA/VOMITING Oxycodone HCl 5 mg 09/19/17 13:44 09/20/17 06:08 Oxyir PO 5 mg TID PRN Administration PAIN Laboratory Tests 09/19/17 09/19/17 09/19/17 10:07 10:07 10:07 WBC 13.2 H RBC 4.32 Hgb 12.8 Hct 39.2 MCV 90.7 MCH 29.6 MCHC 32.7 RDW 13.0 RDW Differential 43.2 Plt Count 272 MPV 10.2 Immature Gran % (Auto) 0.200 Neut % (Auto) 85.5 H Lymph % (Auto) 10.1 L [place] % (Auto) 4.1 Eos % (Auto) 0.0 Baso % (Auto) 0.1 Absolute Neuts (auto) 11.3 H Absolute Lymphs (auto) 1.34 Total Counted Not Reportable PT 13.0 INR 1.0 APTT 32.9 Sodium 141 Potassium 3.6 Chloride 107 Carbon Dioxide 27.0 Anion Gap 7 BUN 14 Creatinine 0.74 Estim Creat Clear Calc 77.29 Est GFR (MDRD) Af Amer 105 Est GFR (MDRD) Non-Af 87 BUN/Creatinine Ratio 19.0 Glucose 183 H Hemoglobin A1c Calcium 9.1 Troponin I < 0.015 Triglycerides Cholesterol LDL Cholesterol VLDL Cholesterol HDL Cholesterol POC Glucose 09/19/17 09/19/17 09/19/17 10:07 10:53 17:39 WBC RBC Hgb Hct MCV MCH MCHC RDW RDW Differential Plt Count MPV Immature Gran % (Auto) Neut % (Auto) Lymph % (Auto) [place] % (Auto) Eos % (Auto) Baso % (Auto) Absolute Neuts (auto) Absolute Lymphs (auto) Total Counted PT INR APTT Sodium Potassium Chloride Carbon Dioxide Anion Gap BUN Creatinine Estim Creat Clear Calc Est GFR (MDRD) Af Amer Est GFR (MDRD) Non-Af BUN/Creatinine Ratio Glucose Hemoglobin A1c 5.7 Calcium Troponin I Triglycerides Cholesterol LDL Cholesterol VLDL Cholesterol HDL Cholesterol POC Glucose 173 H 119 H 09/20/17 09/20/17 09/20/17 00:38 05:17 06:00 WBC 8.7 RBC 3.89 L Hgb 11.7 L Hct 36.1 L MCV 92.8 MCH 30.1 MCHC 32.4 RDW 13.1 RDW Differential 43.4 Plt Count 225 MPV 10.1 Immature Gran % (Auto) 0.500 Neut % (Auto) 58.5 Lymph % (Auto) 34.1 [place] % (Auto) 5.0 Eos % (Auto) 1.6 Baso % (Auto) 0.3 Absolute Neuts (auto) 5.1 Absolute Lymphs (auto) 2.96 Total Counted Not Reportable PT INR APTT Sodium Potassium Chloride Carbon Dioxide Anion Gap BUN Creatinine Estim Creat Clear Calc Est GFR (MDRD) Af Amer Est GFR (MDRD) Non-Af BUN/Creatinine Ratio Glucose Hemoglobin A1c Calcium Troponin I Triglycerides Cholesterol LDL Cholesterol VLDL Cholesterol HDL Cholesterol POC Glucose 112 H 90 09/20/17 06:00 WBC RBC Hgb Hct MCV MCH MCHC RDW RDW Differential Plt Count MPV Immature Gran % (Auto) Neut % (Auto) Lymph % (Auto) [place] % (Auto) Eos % (Auto) Baso % (Auto) Absolute Neuts (auto) Absolute Lymphs (auto) Total Counted PT INR APTT Sodium Potassium Chloride Carbon Dioxide Anion Gap BUN Creatinine Estim Creat Clear Calc Est GFR (MDRD) Af Amer Est GFR (MDRD) Non-Af BUN/Creatinine Ratio Glucose Hemoglobin A1c Calcium Troponin I Triglycerides 77 Cholesterol 156 LDL Cholesterol 80 VLDL Cholesterol 15 HDL Cholesterol 61 POC Glucose echo normal, no shunt Assessment/Plan All Active Problems Hyperglycemia (Acute) Acute ischemic stroke (Acute) right frontal infarct, no apparent risk factors, history of one dvt, no family history of cva pt/ot/speech asa/statin/ aggressive bp control ssri if needed tele ? rehab MRI: had spinal cord stimulator placed in at [facility], removed in . will verify mri compatibility I reviewed the CTA of her head and neck, and I do not think there is any significant stenosis anywhere.
--- NOTE | 2017-09-20 11:15 | CON.PCM_ITS ---
Reason for Consult Date of Consultation: 09/20/17 Reason for Consultation: cva History of Present Illness: The patient is a 57 year old right handed white female noted abnormal driving about one week ago, and family noted abnormal language. pt also noted left arm weakness, came to ed and ct showed likely right frontal infarct. remote tobacco use, no hypertension. no sleep studies, occasional snoring. 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 reports stress due to work. doesnt take asa or blood thinners or plavix at home. no hrt at home. Past Medical History Past Medical History (Chronic Problems): Chronic Problems Chronic back pain (Chronic) Anxiety (Chronic) Reflex sympathetic dystrophy (Chronic) Allergies acetaminophen [From Darvocet-N] Adverse Reaction (Verified 09/19/17 09:40) Nausea hydrocodone [From Vicodin] Adverse Reaction (Verified 09/19/17 09:40) Other pentazocine [From Talwin] Adverse Reaction (Verified 09/19/17 09:40) Other propoxyphene [From Darvocet-N] Adverse Reaction (Verified 09/19/17 09:40) Nausea Home Medications: Ambulatory Orders Medication Instructions Recorded ALPRAZolam [Xanax] 1 mg PO QHS 09/19/17 Celecoxib [Celebrex] 200 mg PO QHS 09/19/17 Methadone HCl [(None)] 10 mg PO Q8H 09/19/17 Oxycodone HCl/Acetaminophen 1 tablet PO TID PRN PRN 09/19/17 [Percocet 5/325] Surgical History: cholecystectomy, - - Spinal cord stimulator, status post removal, still have the connectors and wires. 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 Smoking Status: Former smoker Alcohol: None Drugs: None - *Family History Maternal History Items: Heart Disease, Hypertension, No pertinent history Review of Systems Constitutional: Denies: Chills, Fever, Weight Change HEENT: Denies: Head Aches, Sinus Congestion, Sinus Drainage Cardiovascular: Denies: Chest Pain, Palpitations Respiratory: Denies: Cough, Shortness of breath at rest, Sputum production Gastrointestinal: Denies: Abdominal Pain, Nausea, Vomiting Genitourinary: Denies: Dysuria Musculoskeletal: Denies: Joint Pain, Joint Tenderness Skin: Denies: Rash, Wounds Neurological: Denies: Numbness, Tingling, Focal weakness Psychiatric: Denies: Anxiety, Depression, Homicidal Ideations, Suicidal Ideations Hematologic/ Lymphatic: Denies: Easy Bruising, Easy Bleeding Patient Problems: Active and Suspected Problems Hyperglycemia (Acute) Acute ischemic stroke (Acute) - Physical Exam Vital Signs Temp Pulse Resp BP Pulse Ox 36.7 C 61 18 130/80 H 99 09/20/17 08:55 09/20/17 08:55 09/20/17 08:55 09/20/17 08:55 09/20/17 08:55 Oxygen Delivery Method Room Air Weight: 96.4 kg Body Mass Index (BMI) 35.4 Intake and Output for Last 24 Hours 09/18/17 09/19/17 09/20/17 23:59 23:59 23:59 Intake Total 840 / 840 240 / 240 Balance 840 / 840 240 / 240 Laboratory Tests Past 24 Hrs 09/20/17 09/20/17 06:00 06:00 WBC 8.7 RBC 3.89 L Hgb 11.7 L Hct 36.1 L MCV 92.8 MCH 30.1 MCHC 32.4 RDW 13.1 RDW Differential 43.4 Plt Count 225 MPV 10.1 Immature Gran % (Auto) 0.500 Neut % (Auto) 58.5 Lymph % (Auto) 34.1 [place] % (Auto) 5.0 Eos % (Auto) 1.6 Baso % (Auto) 0.3 Absolute Neuts (auto) 5.1 Absolute Lymphs (auto) 2.96 Total Counted Not Reportable Triglycerides 77 Cholesterol 156 LDL Cholesterol 80 VLDL Cholesterol 15 HDL Cholesterol 61 POC Glucose 09/20/17 09/20/17 09/19/17 05:17 00:38 17:39 POC Glucose 90 112 H 119 H Current Home Med List Medication Instructions Recorded Confirmed Type ALPRAZolam [Xanax] 1 mg PO QHS 09/19/17 09/19/17 History Celecoxib [Celebrex] 200 mg PO QHS 09/19/17 09/19/17 History Methadone HCl [(None)] 10 mg PO Q8H 09/19/17 09/19/17 History Oxycodone HCl/Acetaminophen 1 tablet PO TID PRN PRN 09/19/17 09/19/17 History [Percocet 5/325] Current Medications Generic Name Dose Route Start Last Admin Trade Name Freq PRN Reason Stop Dose Admin Alprazolam 1 mg 09/19/17 22:00 09/19/17 21:11 Xanax PO 1 mg QHS [facility] Administration Aspirin 81 mg 09/20/17 08:00 09/20/17 08:58 Aspirin, Baby PO 81 mg DAILY@0800 [facility] Administration Atorvastatin Calcium 80 mg 09/19/17 22:00 09/19/17 21:10 Lipitor PO 80 mg QHS [facility] Administration Celecoxib 200 mg 09/19/17 22:00 09/19/17 21:10 Celebrex PO 200 mg QHS [facility] Administration Enoxaparin Sodium 40 mg 09/20/17 06:00 09/20/17 06:44 Lovenox SC 40 mg DAILY@0600 [facility] Administration Magnesium Hydroxide 30 ml 09/19/17 13:11 Milk Of Magnesia PO DAILY PRN Constipation Methadone HCl 10 mg 09/19/17 14:00 09/20/17 06:09 PO Not Given Q8 PROSPER Ondansetron HCl 4 mg 09/19/17 13:11 Zofran IV Q6H PRN PRN NAUSEA/VOMITING Oxycodone HCl 5 mg 09/19/17 13:44 09/20/17 06:08 Oxyir PO 5 mg TID PRN Administration PAIN Laboratory Tests 09/19/17 09/19/17 09/19/17 10:07 10:07 10:07 WBC 13.2 H RBC 4.32 Hgb 12.8 Hct 39.2 MCV 90.7 MCH 29.6 MCHC 32.7 RDW 13.0 RDW Differential 43.2 Plt Count 272 MPV 10.2 Immature Gran % (Auto) 0.200 Neut % (Auto) 85.5 H Lymph % (Auto) 10.1 L [place] % (Auto) 4.1 Eos % (Auto) 0.0 Baso % (Auto) 0.1 Absolute Neuts (auto) 11.3 H Absolute Lymphs (auto) 1.34 Total Counted Not Reportable PT 13.0 INR 1.0 APTT 32.9 Sodium 141 Potassium 3.6 Chloride 107 Carbon Dioxide 27.0 Anion Gap 7 BUN 14 Creatinine 0.74 Estim Creat Clear Calc 77.29 Est GFR (MDRD) Af Amer 105 Est GFR (MDRD) Non-Af 87 BUN/Creatinine Ratio 19.0 Glucose 183 H Hemoglobin A1c Calcium 9.1 Troponin I < 0.015 Triglycerides Cholesterol LDL Cholesterol VLDL Cholesterol HDL Cholesterol POC Glucose 09/19/17 09/19/17 09/19/17 10:07 10:53 17:39 WBC RBC Hgb Hct MCV MCH MCHC RDW RDW Differential Plt Count MPV Immature Gran % (Auto) Neut % (Auto) Lymph % (Auto) [place] % (Auto) Eos % (Auto) Baso % (Auto) Absolute Neuts (auto) Absolute Lymphs (auto) Total Counted PT INR APTT Sodium Potassium Chloride Carbon Dioxide Anion Gap BUN Creatinine Estim Creat Clear Calc Est GFR (MDRD) Af Amer Est GFR (MDRD) Non-Af BUN/Creatinine Ratio Glucose Hemoglobin A1c 5.7 Calcium Troponin I Triglycerides Cholesterol LDL Cholesterol VLDL Cholesterol HDL Cholesterol POC Glucose 173 H 119 H 09/20/17 09/20/17 09/20/17 00:38 05:17 06:00 WBC 8.7 RBC 3.89 L Hgb 11.7 L Hct 36.1 L MCV 92.8 MCH 30.1 MCHC 32.4 RDW 13.1 RDW Differential 43.4 Plt Count 225 MPV 10.1 Immature Gran % (Auto) 0.500 Neut % (Auto) 58.5 Lymph % (Auto) 34.1 [place] % (Auto) 5.0 Eos % (Auto) 1.6 Baso % (Auto) 0.3 Absolute Neuts (auto) 5.1 Absolute Lymphs (auto) 2.96 Total Counted Not Reportable PT INR APTT Sodium Potassium Chloride Carbon Dioxide Anion Gap BUN Creatinine Estim Creat Clear Calc Est GFR (MDRD) Af Amer Est GFR (MDRD) Non-Af BUN/Creatinine Ratio Glucose Hemoglobin A1c Calcium Troponin I Triglycerides Cholesterol LDL Cholesterol VLDL Cholesterol HDL Cholesterol POC Glucose 112 H 90 09/20/17 06:00 WBC RBC Hgb Hct MCV MCH MCHC RDW RDW Differential Plt Count MPV Immature Gran % (Auto) Neut % (Auto) Lymph % (Auto) [place] % (Auto) Eos % (Auto) Baso % (Auto) Absolute Neuts (auto) Absolute Lymphs (auto) Total Counted PT INR APTT Sodium Potassium Chloride Carbon Dioxide Anion Gap BUN Creatinine Estim Creat Clear Calc Est GFR (MDRD) Af Amer Est GFR (MDRD) Non-Af BUN/Creatinine Ratio Glucose Hemoglobin A1c Calcium Troponin I Triglycerides 77 Cholesterol 156 LDL Cholesterol 80 VLDL Cholesterol 15 HDL Cholesterol 61 POC Glucose echo normal, no shunt Assessment/Plan All Active Problems Hyperglycemia (Acute) Acute ischemic stroke (Acute) right frontal infarct, no apparent risk factors, history of one dvt, no family history of cva pt/ot/speech asa/statin/ aggressive bp control ssri if needed tele ? rehab MRI: had spinal cord stimulator placed in at [facility], removed in . will verify mri compatibility I reviewed the CTA of her head and neck, and I do not think there is any significant stenosis anywhere.
--- NOTE | 2017-09-20 12:24 | CASEMGMT ---
Face to Face with patient for initial transition planning/care coordination assessment. JUDE SHORT introduced self and role at [facility], pt voices understanding and consents to assessment at this time. Pt is sitting up in bed in no distress at this time. Pt is A/O x4 at this time and answers all questions appropriately at this time. Care providers, pharmacy, and demographics verified. See attached link. Pt voices no further concerns/needs at this time. Advised pt to ask for CM if any further questions/concerns/needs arise, voices understanding. PLAN: [place] JUDE SHORT
--- NOTE | 2017-09-20 13:18 | CASEMGMT ---
SW was told physician was asking about rehab for patient. SW reviewed her PT/OT. PT has discontinued her services as she is doing well and OT has recommended home with outpatient/benefit further therapy. PAMELA spoke with Reina in the rehab unit and explained situation. She said insurance will not approve her for the rehab unit. SW spoke with patient and told her this information. SW told her that she can go to outpatient therapy or if she is homebound we could set up home health. She will talk to her and JUDE SHORT will check back. [facility] [employer] [facility] HEAD
[2017-09-20] MEDS: Ondansetron 4 MG/2 ML Vial IV (20:08)
[2017-09-20] MEDS: Atorvastatin Calcium 80 MG Tablet PO (22:22)
[2017-09-20] MEDS: Celecoxib 200 MG Capsule PO (22:22)
[2017-09-20] MEDS: ALPRAZolam 0.5 MG Tablet 1 MG PO (22:23)
[2017-09-21] VITALS (12 sets, daily range): BP systolic 106–128; BP diastolic 53–87; PULSE 49–75; RESP 16–18; TEMP 36.2–36.8; O2SAT 97–99; BMI 35.4
[2017-09-21] MEDS: Enoxaparin 40 MG/0.4 ML Syringe SC (06:48)
--- NOTE | 2017-09-21 07:37 | PCM.PROGNOTE ---
Patient Problems: Active and Suspected Problems Hyperglycemia (Acute) Acute ischemic stroke (Acute) Subjective: Chief complaint: Follow-up after admission for acute stroke. Patient seen and examined. No acute events overnight. This morning, she continued to complain of headache. She denies any new symptoms. Still having left upper extremity weakness. Her vital signs are stable, blood pressure normal. - Physical Exam General: Alert, Oriented x3, Cooperative, No apparent distress HEENT: Atraumatic, PERRLA, EOMI, Normocephalic Oral: Moist Mucosa, No Gingival or Mucosal Lesions/ Ulcerations Neck: Supple, No JVD, Negative Carotid Bruits, Trachea Midline, Thyroid Normal Size and Texture Lungs: Clear to auscultation, No rhonchi, No wheeze, No rales, Diminished Cardiovascular: Regular rate, Regular Rhythm, Normal S1, Normal S2, No murmurs Abdomen: Bowel Sounds Present, Soft, Non Tender, Non-Distended, No Hepato-splenomegaly Extremities: No clubbing, No cyanosis, No edema Skin: No rashes, No breakdown Lymphatic: No Cervical, Supraclavicular, or Inguinal Adenopathy Neurological: - - Minimal left facial droop, left upper extremity monoparesis. Other cranial nerves are intact. Psych/Mental Status: Normal Affect, Appropriate, Alert and oriented to time, place, person, mood and affect Vital Signs Temp Pulse Resp BP Pulse Ox 97.1 F L 66 18 111/57 L 99 09/21/17 06:45 09/21/17 06:45 09/21/17 06:45 09/21/17 06:45 09/21/17 06:45 Oxygen Delivery Method Room Air Weight: 212 lb 8.41 oz Body Mass Index (BMI) 35.4 Intake and Output for Last 24 Hours 09/19/17 09/20/17 09/21/17 23:59 23:59 23:59 Intake Total 840 / 840 1040 / 1040 Balance 840 / 840 1040 / 1040 Laboratory Tests Past 24 Hrs 09/20/17 09/20/17 11:45 11:45 PT Ratio Pending INR Pending APTT Pending Thrombin Time Pending Thrombin Time Mix Pending Lupus Anticoag aPTT Pending Protein C Antigen Pending Prot C Funct Activity Pending Functional Protein S Pending Free Protein S Pending Total Protein S Pending Func Antithrombin III Pending Factor V Leiden Mutat Pending JAMES Screen Pending CHANTELLE-1 Antibody Pending SS-A/Ro IgG Antibody Pending SS-B/La IgG Antibody Pending Sm (Sparks) Antibody Pending 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 #1 Subacute right frontal/temporal region ischemic stroke: With residual minimal left facial droop, left upper extremity monoparesis and left-sided neglect. She is on aspirin and statins. Vital signs stable, blood pressure under control. CTA of the head revealed significant focal stenosis of the supraclinoid segment of the right internal carotid artery. CTA of the neck revealed no significant vascular disease or stenosis. Dr. Boucher reviewed the CTA of the head and stated there is no evidence of focal stenosis of the right internal carotid artery. 2D echocardiogram revealed normal ejection fraction, negative for [id number]-[id number] shunt and no significant valvular heart disease. There was no obvious risk factors or precipitating factors for this acute stroke. Hypercoagulability workup and autoimmune disease workup sent and pending. Plan to continue same treatment, possible DC home today. #2 hyperglycemia: Without history of diabetes. Blood sugar has been around 110s. Hemoglobin A1c was 5.7. No diabetes. #3 chronic back pain: Status post removal of spinal cord stimulator few years ago, chronic tubes are still in place. Stable, continue methadone and Percocet as needed for pain. #4 anxiety: Continue Xanax nightly. #5 reflex sympathetic dystrophy: Continue methadone and Percocet as needed for pain. #6 DVT prophylaxis: Subcu Lovenox. This note was generated with [employer] software. It may contain incorrect words, spelling, and punctuation that were not noted in checking the note before signing.
--- NOTE | 2017-09-21 07:41 | PN_ITS ---
Patient Problems: Active and Suspected Problems Hyperglycemia (Acute) Acute ischemic stroke (Acute) Subjective: Chief complaint: Follow-up after admission for acute stroke. Patient seen and examined. No acute events overnight. This morning, she continued to complain of headache. She denies any new symptoms. Still having left upper extremity weakness. Her vital signs are stable, blood pressure normal. - Physical Exam General: Alert, Oriented x3, Cooperative, No apparent distress HEENT: Atraumatic, PERRLA, EOMI, Normocephalic Oral: Moist Mucosa, No Gingival or Mucosal Lesions/ Ulcerations Neck: Supple, No JVD, Negative Carotid Bruits, Trachea Midline, Thyroid Normal Size and Texture Lungs: Clear to auscultation, No rhonchi, No wheeze, No rales, Diminished Cardiovascular: Regular rate, Regular Rhythm, Normal S1, Normal S2, No murmurs Abdomen: Bowel Sounds Present, Soft, Non Tender, Non-Distended, No Hepato- splenomegaly Extremities: No clubbing, No cyanosis, No edema Skin: No rashes, No breakdown Lymphatic: No Cervical, Supraclavicular, or Inguinal Adenopathy Neurological: - - Minimal left facial droop, left upper extremity monoparesis. Other cranial nerves are intact. Psych/Mental Status: Normal Affect, Appropriate, Alert and oriented to time, place, person, mood and affect Vital Signs Temp Pulse Resp BP Pulse Ox 97.1 F L 66 18 111/57 L 99 09/21/17 06:45 09/21/17 06:45 09/21/17 06:45 09/21/17 06:45 09/21/17 06:45 Oxygen Delivery Method Room Air Weight: 212 lb 8.41 oz Body Mass Index (BMI) 35.4 Intake and Output for Last 24 Hours 09/19/17 09/20/17 09/21/17 23:59 23:59 23:59 Intake Total 840 / 840 1040 / 1040 Balance 840 / 840 1040 / 1040 Laboratory Tests Past 24 Hrs 09/20/17 09/20/17 11:45 11:45 PT Ratio Pending INR Pending APTT Pending Thrombin Time Pending Thrombin Time Mix Pending Lupus Anticoag aPTT Pending Protein C Antigen Pending Prot C Funct Activity Pending Functional Protein S Pending Free Protein S Pending Total Protein S Pending Func Antithrombin III Pending Factor V Leiden Mutat Pending JAMES Screen Pending CHANTELLE-1 Antibody Pending SS-A/Ro IgG Antibody Pending SS-B/La IgG Antibody Pending Sm (Sparks) Antibody Pending 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 Pending Scl-70 Scleroderma Ab Pending Double Strand DNA Ab Pending Centromere B Antibody Pending Anti-Cardiolipin IgG Ab Pending Anti-Cardiolipin IgM Ab Pending Medical Necessity - Tobacco Use Smoking Status: Former smoker Assessment/Plan All Active Problems Hyperglycemia (Acute) Acute ischemic stroke (Acute) This is a 57 presented to the emergency room because of headache, left arm weakness, left-sided neglect and confusion and she was found to have right frontal/temporal region subacute infarct as well as hyperglycemia without history of diabetes she is being admitted for evaluation and treatment. #1 Subacute right frontal/temporal region ischemic stroke: With residual minimal left facial droop, left upper extremity monoparesis and left-sided neglect. She is on aspirin and statins. Vital signs stable, blood pressure under control. CTA of the head revealed significant focal stenosis of the supraclinoid segment of the right internal carotid artery. CTA of the neck revealed no significant vascular disease or stenosis. Dr. Boucher reviewed the CTA of the head and stated there is no evidence of focal stenosis of the right internal carotid artery. 2D echocardiogram revealed normal ejection fraction, negative for [id number] shunt and no significant valvular heart disease. There was no obvious risk factors or precipitating factors for this acute stroke. Hypercoagulability workup and autoimmune disease workup sent and pending. Plan to continue same treatment, possible DC home today. #2 hyperglycemia: Without history of diabetes. Blood sugar has been around 110s. Hemoglobin A1c was 5.7. No diabetes. #3 chronic back pain: Status post removal of spinal cord stimulator few years ago, chronic tubes are still in place. Stable, continue methadone and Percocet as needed for pain. #4 anxiety: Continue Xanax nightly. #5 reflex sympathetic dystrophy: Continue methadone and Percocet as needed for pain. #6 DVT prophylaxis: Subcu Lovenox. This note was generated with [employer] software. It may contain incorrect words, spelling, and punctuation that were not noted in checking the note before signing.
[2017-09-21] MEDS: oxyCODONE 5 MG Tablet PO ×2 (08:24→16:14)
[2017-09-21] MEDS: Aspirin 81 MG TAB.CHEW PO (08:24)
--- NOTE | 2017-09-21 09:30 | CASEMGMT ---
Addendum entered by Melissa Oneal 09/21/17 14:49: New order placed for PT to re-evaluate pt. Pt updated that she will be here till Saturday for MRI and possible rehab placement, which she is agreeable to. Message left for Reina in rehab on transfer line regarding pt and therapy recommendations at this time. Pt voices no further questions/concerns/needs at this time. Jenaro ROQUE CM Original Note: This RN CM faxed referral to [facility] at this time. Original to pt at this time and per pt, [place] from Speech therapy is recommending inpt rehab for pt at this time. Advised pt that this RN CM would f/u on therapy notes and speak with Guerda SANTIAGO and then update her. Per OT and speech therapy notes today, they are recommending inpt rehab for pt at this time. This RN DEJA spoke with Daniela ROQUE regarding getting PT to see pt again as they signed off two days ago and d/t other recommendations. Therapy and Dr. Phipps to be contacted by nursing at this time. Guerda SANTIAGO updated on all at this time and voices understanding. Jenaro ROQUE CM
--- NOTE | 2017-09-21 12:05 | RAD_ITS ---
STUDY: X-RAY - ABDOMEN/PELVIS REASON FOR EXAM: Female, 57 years old. History of neurostimulator implant. Clearance for MRI of the brain. TECHNIQUE: AP and lateral views of the abdomen were obtained. COMPARISON: None. FINDINGS: There is a neurostimulator wire on the right side of the abdomen with the tip approaching the lateral aspect of L2-L3. There are nonspecific gaseous bowel loops. There is fecal retention. Normal soft tissue structures. There are mild degenerative changes in the spine. RAD/Abdomen Single View IMPRESSION: Neurostimulator wires on the right side of the abdomen as described above. Electronically Signed: Edi Castrejon MD at 12:59 EDT Tel , Service support ,
[2017-09-21] MEDS: Ibuprofen 600 MG Tablet PO (20:23)
[2017-09-21] MEDS: Ondansetron 4 MG/2 ML Vial IV (20:27)
[2017-09-21] MEDS: ALPRAZolam 0.5 MG Tablet 1 MG PO (21:41)
[2017-09-21] MEDS: Celecoxib 200 MG Capsule PO (21:42)
[2017-09-21] MEDS: Atorvastatin Calcium 80 MG Tablet PO (21:43)
[2017-09-22] VITALS (12 sets, daily range): BP systolic 105–150; BP diastolic 52–88; PULSE 46–77; RESP 16–18; TEMP 36.5–36.9; O2SAT 95–100; BMI 35.4
[2017-09-22] MEDS: Enoxaparin 40 MG/0.4 ML Syringe SC (06:12)
--- NOTE | 2017-09-22 07:53 | PCM.PROGNOTE ---
Patient Problems: Active and Suspected Problems Hyperglycemia (Acute) Acute ischemic stroke (Acute) Subjective: Chief complaint: Follow-up after admission for acute stroke. Patient seen and examined. No acute events overnight. She mentioned that the headache is getting better. Still having weakness on the left upper extremity. No new complaints. Vital signs are stable. - Physical Exam General: Alert, Oriented x3, Cooperative, No apparent distress HEENT: Atraumatic, PERRLA, EOMI, Normocephalic Oral: Moist Mucosa, No Gingival or Mucosal Lesions/ Ulcerations Neck: Supple, No JVD, Negative Carotid Bruits, Trachea Midline, Thyroid Normal Size and Texture Lungs: Clear to auscultation, Normal air movement, No rhonchi, No wheeze, No rales Cardiovascular: Regular rate, Regular Rhythm, Normal S1, Normal S2, No murmurs Abdomen: Bowel Sounds Present, Soft, Non Tender, Non-Distended, No Hepato-splenomegaly Extremities: No clubbing, No cyanosis, No edema Skin: No rashes, No breakdown Lymphatic: No Cervical, Supraclavicular, or Inguinal Adenopathy Neurological: - - Minimal left facial droop, other cranial nerves are intact. Left upper extremity monoparesis. Psych/Mental Status: Normal Affect, Appropriate, Alert and oriented to time, place, person, mood and affect Vital Signs Temp Pulse Resp BP Pulse Ox 98.5 F 52 L 16 125/73 H 96 09/22/17 04:10 09/22/17 07:20 09/22/17 04:10 09/22/17 04:10 09/22/17 04:10 Oxygen Delivery Method Room Air Weight: 212 lb 8.41 oz Body Mass Index (BMI) 35.4 Intake and Output for Last 24 Hours 09/20/17 09/21/17 09/22/17 23:59 23:59 23:59 Intake Total 1040 / 1040 1325 / 1325 Balance 1040 / 1040 1325 / 1325 Medical Necessity - Tobacco Use Smoking Status: Former smoker Assessment/Plan All Active Problems Hyperglycemia (Acute) Acute ischemic stroke (Acute) This is a 57 presented to the emergency room because of headache, left arm weakness, left-sided neglect and confusion and she was found to have right frontal/temporal region subacute infarct as well as hyperglycemia without history of diabetes she is being admitted for evaluation and treatment. #1 Subacute right frontal/temporal region ischemic stroke: With residual minimal left facial droop, left upper extremity monoparesis and left-sided neglect. She is on aspirin and statins. Vital signs stable, blood pressure under control. CTA of the head revealed significant focal stenosis of the supraclinoid segment of the right internal carotid artery. CTA of the neck revealed no significant vascular disease or stenosis. Dr. Boucher reviewed the CTA of the head and stated there is no evidence of focal stenosis of the right internal carotid artery. 2D echocardiogram revealed normal ejection fraction, negative for [id number] shunt and no significant valvular heart disease. There was no obvious risk factors or precipitating factors for this acute stroke. Hypercoagulability workup and autoimmune disease workup sent and pending. Neurology recommended to perform MRI brain but because she has the spinal cord stimulator connectors in place, we need to verify the compatibility of those connectors to MRI. Patient was evaluated by speech therapy and recommended placement to custodial facility. PT OT are consulted for evaluation and possible placement to inpatient rehabilitation. #2 hyperglycemia: Without history of diabetes. Blood sugar has been around 110s. Hemoglobin A1c was 5.7. No diabetes. #3 chronic back pain: Status post removal of spinal cord stimulator few years ago, chronic tubes are still in place. Stable, continue methadone and Percocet as needed for pain. #4 anxiety: Continue Xanax nightly. #5 reflex sympathetic dystrophy: Continue methadone and Percocet as needed for pain. #6 DVT prophylaxis: Subcu Lovenox. This note was generated with [employer] dictation software. It may contain incorrect words, spelling, and punctuation that were not noted in checking the note before signing. Code Visit Inpatient E&M: 31392 Subs Hosp L2
--- NOTE | 2017-09-22 07:57 | PN_ITS ---
Patient Problems: Active and Suspected Problems Hyperglycemia (Acute) Acute ischemic stroke (Acute) Subjective: Chief complaint: Follow-up after admission for acute stroke. Patient seen and examined. No acute events overnight. She mentioned that the headache is getting better. Still having weakness on the left upper extremity. No new complaints. Vital signs are stable. - Physical Exam General: Alert, Oriented x3, Cooperative, No apparent distress HEENT: Atraumatic, PERRLA, EOMI, Normocephalic Oral: Moist Mucosa, No Gingival or Mucosal Lesions/ Ulcerations Neck: Supple, No JVD, Negative Carotid Bruits, Trachea Midline, Thyroid Normal Size and Texture Lungs: Clear to auscultation, Normal air movement, No rhonchi, No wheeze, No rales Cardiovascular: Regular rate, Regular Rhythm, Normal S1, Normal S2, No murmurs Abdomen: Bowel Sounds Present, Soft, Non Tender, Non-Distended, No Hepato- splenomegaly Extremities: No clubbing, No cyanosis, No edema Skin: No rashes, No breakdown Lymphatic: No Cervical, Supraclavicular, or Inguinal Adenopathy Neurological: - - Minimal left facial droop, other cranial nerves are intact. Left upper extremity monoparesis. Psych/Mental Status: Normal Affect, Appropriate, Alert and oriented to time, place, person, mood and affect Vital Signs Temp Pulse Resp BP Pulse Ox 98.5 F 52 L 16 125/73 H 96 09/22/17 04:10 09/22/17 07:20 09/22/17 04:10 09/22/17 04:10 09/22/17 04:10 Oxygen Delivery Method Room Air Weight: 212 lb 8.41 oz Body Mass Index (BMI) 35.4 Intake and Output for Last 24 Hours 09/20/17 09/21/17 09/22/17 23:59 23:59 23:59 Intake Total 1040 / 1040 1325 / 1325 Balance 1040 / 1040 1325 / 1325 Medical Necessity - Tobacco Use Smoking Status: Former smoker Assessment/Plan All Active Problems Hyperglycemia (Acute) Acute ischemic stroke (Acute) This is a 57 presented to the emergency room because of headache, left arm weakness, left-sided neglect and confusion and she was found to have right frontal/temporal region subacute infarct as well as hyperglycemia without history of diabetes she is being admitted for evaluation and treatment. #1 Subacute right frontal/temporal region ischemic stroke: With residual minimal left facial droop, left upper extremity monoparesis and left-sided neglect. She is on aspirin and statins. Vital signs stable, blood pressure under control. CTA of the head revealed significant focal stenosis of the supraclinoid segment of the right internal carotid artery. CTA of the neck revealed no significant vascular disease or stenosis. Dr. Boucher reviewed the CTA of the head and stated there is no evidence of focal stenosis of the right internal carotid artery. 2D echocardiogram revealed normal ejection fraction, negative for [id number] shunt and no significant valvular heart disease. There was no obvious risk factors or precipitating factors for this acute stroke. Hypercoagulability workup and autoimmune disease workup sent and pending. Neurology recommended to perform MRI brain but because she has the spinal cord stimulator connectors in place, we need to verify the compatibility of those connectors to MRI. Patient was evaluated by speech therapy and recommended placement to nursing home facility. PT OT are consulted for evaluation and possible placement to inpatient rehabilitation. #2 hyperglycemia: Without history of diabetes. Blood sugar has been around 110s. Hemoglobin A1c was 5.7. No diabetes. #3 chronic back pain: Status post removal of spinal cord stimulator few years ago, chronic tubes are still in place. Stable, continue methadone and Percocet as needed for pain. #4 anxiety: Continue Xanax nightly. #5 reflex sympathetic dystrophy: Continue methadone and Percocet as needed for pain. #6 DVT prophylaxis: Subcu Lovenox. This note was generated with [employer] dictation software. It may contain incorrect words, spelling, and punctuation that were not noted in checking the note before signing. Code Visit Inpatient E&M: 21604 Subs Hosp L2
[2017-09-22] MEDS: Ibuprofen 600 MG Tablet PO ×2 (08:14→17:06)
[2017-09-22] MEDS: Aspirin 81 MG TAB.CHEW PO (08:14)
[2017-09-22] MEDS: oxyCODONE 5 MG Tablet PO ×2 (10:39→20:16)
[2017-09-22] MEDS: ALPRAZolam 0.5 MG Tablet 1 MG PO (21:47)
[2017-09-22] MEDS: Celecoxib 200 MG Capsule PO (21:47)
[2017-09-22] MEDS: Atorvastatin Calcium 80 MG Tablet PO (21:48)
[2017-09-22] MEDS: Ondansetron 4 MG/2 ML Vial IV (21:52)
[2017-09-23] VITALS (12 sets, daily range): BP systolic 105–149; BP diastolic 59–74; PULSE 52–77; RESP 14–18; TEMP 36.3–36.8; O2SAT 96–100; BMI 35.4
[2017-09-23] MEDS: Enoxaparin 40 MG/0.4 ML Syringe SC (05:29)
[2017-09-23] MEDS: Aspirin 81 MG TAB.CHEW PO (07:58)
--- NOTE | 2017-09-23 08:21 | PCM.PROGNOTE ---
Patient Problems: Active and Suspected Problems Hyperglycemia (Acute) Acute ischemic stroke (Acute) Subjective: Chief complaint: Follow-up after admission for acute stroke. Patient seen and examined. No acute events overnight. She has no new complaints. Headache is getting better. Still having left upper extremity weakness. Her vital signs are stable. - Physical Exam General: Alert, Oriented x3, Cooperative, No apparent distress HEENT: Atraumatic, PERRLA, EOMI, Normocephalic Oral: Moist Mucosa, No Gingival or Mucosal Lesions/ Ulcerations Neck: Supple, No JVD, Negative Carotid Bruits, Trachea Midline, Thyroid Normal Size and Texture Lungs: Clear to auscultation, Normal air movement, No rhonchi, No wheeze, No rales Cardiovascular: Regular rate, Regular Rhythm, Normal S1, Normal S2, No murmurs Abdomen: Bowel Sounds Present, Soft, Non Tender, Non-Distended, No Hepato-splenomegaly Extremities: No clubbing, No cyanosis, No edema Skin: No rashes, No breakdown Lymphatic: No Cervical, Supraclavicular, or Inguinal Adenopathy Neurological: - - Minimal left facial droop, other cranial nerves are intact. Left upper extremity monoparesis. Psych/Mental Status: Normal Affect, Appropriate, Alert and oriented to time, place, person, mood and affect Vital Signs Temp Pulse Resp BP Pulse Ox 97.4 F L 61 16 146/59 H 100 09/23/17 08:00 09/23/17 08:00 09/23/17 08:00 09/23/17 08:00 09/23/17 08:00 Oxygen Delivery Method Room Air Weight: 212 lb 8.41 oz Body Mass Index (BMI) 35.4 Intake and Output for Last 24 Hours 09/21/17 09/22/17 09/23/17 23:59 23:59 23:59 Intake Total 1325 / 1325 1800 / 1800 Balance 1325 / 1325 1800 / 1800 Medical Necessity - Tobacco Use Smoking Status: Former smoker Assessment/Plan All Active Problems Hyperglycemia (Acute) Acute ischemic stroke (Acute) This is a 57 presented to the emergency room because of headache, left arm weakness, left-sided neglect and confusion and she was found to have right frontal/temporal region subacute infarct as well as hyperglycemia without history of diabetes she is being admitted for evaluation and treatment. #1 Subacute right frontal/temporal region ischemic stroke: With residual minimal left facial droop, left upper extremity monoparesis and left-sided neglect. Remains stable, no new symptoms or worsening of her deficits. She is on aspirin and statins. Vital signs stable, blood pressure under control. CTA of the head revealed significant focal stenosis of the supraclinoid segment of the right internal carotid artery. CTA of the neck revealed no significant vascular disease or stenosis. Dr. Boucher reviewed the CTA of the head and stated there is no evidence of focal stenosis of the right internal carotid artery. 2D echocardiogram revealed normal ejection fraction, negative for [id number] shunt and no significant valvular heart disease. There was no obvious risk factors or precipitating factors for this acute stroke. Hypercoagulability workup and autoimmune disease workup sent and pending. Plan to verify if she can have MRI if that is compatible with her spinal cord stimulator connectors, placement to rehab. #2 hyperglycemia: Without history of diabetes. Blood sugar has been around 110s. Hemoglobin A1c was 5.7. No diabetes. #3 chronic back pain: Status post removal of spinal cord stimulator few years ago, connectors still in place. Stable, continue methadone and Percocet as needed for pain. #4 anxiety: Continue Xanax nightly. #5 reflex sympathetic dystrophy: Continue methadone and Percocet as needed for pain. #6 DVT prophylaxis: Subcu Lovenox. This note was generated with [employer] dictation software. It may contain incorrect words, spelling, and punctuation that were not noted in checking the note before signing.
--- NOTE | 2017-09-23 08:24 | PN_ITS ---
Patient Problems: Active and Suspected Problems Hyperglycemia (Acute) Acute ischemic stroke (Acute) Subjective: Chief complaint: Follow-up after admission for acute stroke. Patient seen and examined. No acute events overnight. She has no new complaints. Headache is getting better. Still having left upper extremity weakness. Her vital signs are stable. - Physical Exam General: Alert, Oriented x3, Cooperative, No apparent distress HEENT: Atraumatic, PERRLA, EOMI, Normocephalic Oral: Moist Mucosa, No Gingival or Mucosal Lesions/ Ulcerations Neck: Supple, No JVD, Negative Carotid Bruits, Trachea Midline, Thyroid Normal Size and Texture Lungs: Clear to auscultation, Normal air movement, No rhonchi, No wheeze, No rales Cardiovascular: Regular rate, Regular Rhythm, Normal S1, Normal S2, No murmurs Abdomen: Bowel Sounds Present, Soft, Non Tender, Non-Distended, No Hepato- splenomegaly Extremities: No clubbing, No cyanosis, No edema Skin: No rashes, No breakdown Lymphatic: No Cervical, Supraclavicular, or Inguinal Adenopathy Neurological: - - Minimal left facial droop, other cranial nerves are intact. Left upper extremity monoparesis. Psych/Mental Status: Normal Affect, Appropriate, Alert and oriented to time, place, person, mood and affect Vital Signs Temp Pulse Resp BP Pulse Ox 97.4 F L 61 16 146/59 H 100 09/23/17 08:00 09/23/17 08:00 09/23/17 08:00 09/23/17 08:00 09/23/17 08:00 Oxygen Delivery Method Room Air Weight: 212 lb 8.41 oz Body Mass Index (BMI) 35.4 Intake and Output for Last 24 Hours 09/21/17 09/22/17 09/23/17 23:59 23:59 23:59 Intake Total 1325 / 1325 1800 / 1800 Balance 1325 / 1325 1800 / 1800 Medical Necessity - Tobacco Use Smoking Status: Former smoker Assessment/Plan All Active Problems Hyperglycemia (Acute) Acute ischemic stroke (Acute) This is a 57 presented to the emergency room because of headache, left arm weakness, left-sided neglect and confusion and she was found to have right frontal/temporal region subacute infarct as well as hyperglycemia without history of diabetes she is being admitted for evaluation and treatment. #1 Subacute right frontal/temporal region ischemic stroke: With residual minimal left facial droop, left upper extremity monoparesis and left-sided neglect. Remains stable, no new symptoms or worsening of her deficits. She is on aspirin and statins. Vital signs stable, blood pressure under control. CTA of the head revealed significant focal stenosis of the supraclinoid segment of the right internal carotid artery. CTA of the neck revealed no significant vascular disease or stenosis. Dr. Boucher reviewed the CTA of the head and stated there is no evidence of focal stenosis of the right internal carotid artery. 2D echocardiogram revealed normal ejection fraction, negative for right -to-left shunt and no significant valvular heart disease. There was no obvious risk factors or precipitating factors for this acute stroke. Hypercoagulability workup and autoimmune disease workup sent and pending. Plan to verify if she can have MRI if that is compatible with her spinal cord stimulator connectors, placement to rehab. #2 hyperglycemia: Without history of diabetes. Blood sugar has been around 110s. Hemoglobin A1c was 5.7. No diabetes. #3 chronic back pain: Status post removal of spinal cord stimulator few years ago, connectors still in place. Stable, continue methadone and Percocet as needed for pain. #4 anxiety: Continue Xanax nightly. #5 reflex sympathetic dystrophy: Continue methadone and Percocet as needed for pain. #6 DVT prophylaxis: Subcu Lovenox. This note was generated with [employer] dictation software. It may contain incorrect words, spelling, and punctuation that were not noted in checking the note before signing.
--- NOTE | 2017-09-23 08:57 | CASEMGMT ---
Social Work Reveiwed PT notes and PT recommending [facility]. Referral made to [facility] in [facility] and precert will be started. CLEMENCIA Garcia
[2017-09-23] MEDS: Ibuprofen 600 MG Tablet PO ×2 (10:16→19:23)
--- NOTE | 2017-09-23 11:46 | MRI_ITS ---
STUDY: MRI BRAIN WITHOUT CONTRAST REASON FOR EXAM: Female, 57 years old. Left-sided weakness TECHNIQUE: Standardized multiplanar fat and water weighted pulse sequences were obtained. COMPARISON: CT of the brain on September 19, 2017 FINDINGS: Normal size of the ventricles and extra-axial spaces for the patient's age. Mild chronic periventricular white matter ischemic changes. Focal gliosis in the right frontal parietal region demonstrating restricted diffusion consistent with acute infarction in the distribution of the right middle cerebral artery. There is serpiginous increased signal intensity at the site of the infarct consistent with subacute hemorrhagic transformation or lamellar necrosis Normal bilateral basal ganglia. Normal thalami. There is no extra-axial fluid accumulation. Normal flow voids within the major intracranial circulation suggesting patency by spin echo criteria. Normal sella turcica, pituitary gland, infundibular stalk, optic chiasm and hypothalamus. Normal tectal plate and pineal gland. Normal midbrain, erick and medulla. Normal cerebellum. Normal basal cisterns. Normal bilateral temporal bones. Normal bilateral internal auditory canals. No demonstrated orbital abnormality, within the constraints of a routine brain study. Normal visualized paranasal sinuses. Normal calvarium and skull base. Normal visualized soft tissue structures. Normal visualized upper cervical spine. MRI/Brain without Contrast IMPRESSION: Acute ischemic infarction in the right frontal parietal region with mild subacute hemorrhagic transformation or lamellar necrosis N.B. : The above information has been verbally conveyed by Sherman Larsen MD to , Covering Physician, on 09/23/2017 16:12:40 (ET). Electronically Signed: Sherman Larsen MD at 16:02 EDT , Service support ,
[2017-09-23] MEDS: oxyCODONE 5 MG Tablet PO ×2 (11:58→21:10)
[2017-09-23] MEDS: Magnesium Hydroxide 30 ML UDC PO (11:58)
[2017-09-23 16:09] LABS: ANTINUCLEAR ANTIBODIES DIRECT Positive (Negative); Anti-Centromere B Ab >8.0 AI (0.0-0.9); Anti-Chromatin 0.2 AI (0.0-0.9); Anti-Jo <0.2 AI (0.0-0.9); Anti-Scleroderma-70 AB <0.2 AI (0.0-0.9); RNP Ab <0.2 AI (0.0-0.9); SJOGREN'S Anti-SS-A test < 0.2 AI (0.0-0.9); SJOGREN'S Anti-SS-B test < 0.2 AI (0.0-0.9); Smith Ab <0.2 AI (0.0-0.9)
[2017-09-23] MEDS: Calcium Carbonate 500 MG Tablet 1000 MG PO (20:05)
[2017-09-23] MEDS: Celecoxib 200 MG Capsule PO (21:09)
[2017-09-23] MEDS: Atorvastatin Calcium 80 MG Tablet PO (21:09)
[2017-09-23] MEDS: ALPRAZolam 0.5 MG Tablet 1 MG PO (21:10)
[2017-09-23] MEDS: Ondansetron 4 MG/2 ML Vial IV (22:00)
[2017-09-24] VITALS (11 sets, daily range): BP systolic 95–128; BP diastolic 51–78; PULSE 47–68; RESP 14–18; TEMP 36.3–37; O2SAT 95–100; BMI 35.4
[2017-09-24] MEDS: Enoxaparin 40 MG/0.4 ML Syringe SC (05:06)
[2017-09-24] MEDS: oxyCODONE 5 MG Tablet PO ×2 (05:11→19:54)
[2017-09-24 08:44] LABS: Anti-dsDNA Ab 1 IU/mL (0-9)
[2017-09-24] MEDS: Aspirin 81 MG TAB.CHEW PO (08:53)
[2017-09-24] MEDS: Acetaminophen 325 MG Tablet 650 MG PO ×2 (08:53→21:01)
--- NOTE | 2017-09-24 09:27 | PCM.PROGNOTE ---
Patient Problems: Active and Suspected Problems Hyperglycemia (Acute) Acute ischemic stroke (Acute) Subjective: Chief complaint: Follow-up after admission for acute stroke. Patient seen and examined. No acute events overnight. Headache is improving. Weakness of the left upper extremity is the same. No new complaints. Vital signs are stable. - Physical Exam General: Alert, Oriented x3, Cooperative, No apparent distress HEENT: Atraumatic, PERRLA, EOMI, Normocephalic Oral: Moist Mucosa, No Gingival or Mucosal Lesions/ Ulcerations Neck: Supple, No JVD, Negative Carotid Bruits, Trachea Midline, Thyroid Normal Size and Texture Lungs: Clear to auscultation, Normal air movement, No rhonchi, No wheeze, No rales Cardiovascular: Regular rate, Regular Rhythm, Normal S1, Normal S2, No murmurs Abdomen: Bowel Sounds Present, Soft, Non Tender, Non-Distended, No Hepato-splenomegaly Extremities: No clubbing, No cyanosis, No edema Skin: No rashes, No breakdown Lymphatic: No Cervical, Supraclavicular, or Inguinal Adenopathy Neurological: - - Minimal left facial droop, other cranial nerves are intact. Left upper extremity monoparesis. Psych/Mental Status: Normal Affect, Appropriate, Alert and oriented to time, place, person, mood and affect Vital Signs Temp Pulse Resp BP Pulse Ox 97.7 F L 56 L 16 121/51 H 95 09/24/17 04:00 09/24/17 06:57 09/24/17 04:00 09/24/17 04:00 09/24/17 04:00 Oxygen Delivery Method Room Air Weight: 212 lb 8.41 oz Body Mass Index (BMI) 35.4 Intake and Output for Last 24 Hours 09/22/17 09/23/17 09/24/17 23:59 23:59 23:59 Intake Total 1800 / 1800 1320 / 1320 240 / 240 Balance 1800 / 1800 1320 / 1320 240 / 240 Laboratory Tests Past 24 Hrs 09/20/17 09/24/17 11:45 09:00 Functional Protein C Pending Antithrombin III Ag Pending Func Antithrombin III Pending JAMES Screen Positive H CHANTELLE-1 Antibody <0.2 SS-A/Ro IgG Antibody < 0.2 SS-B/La IgG Antibody < 0.2 Sm ([place]parks) Antibody <0.2 STICK FEEDER Antibody <0.2 Scl-70 Scleroderma Ab <0.2 Double Strand DNA Ab 1 Centromere B Antibody >8.0 H Beta-2-GPI IgG Ab Pending Beta-2-GPI IgA Ab Pending Beta-2-GPI IgM Ab Pending Factor II DNA Analysis Pending Clinical Impression(s) from Imaging Studies MRI brain 09/23/17 11:46 IMPRESSION: Acute ischemic infarction in the right frontal parietal region with mild subacute hemorrhagic transformation or lamellar necrosis N.B. : The above information has been verbally conveyed by Sherman Larsen MD to , Covering Physician, on 09/23/2017 16:12:40 (ET). Electronically Signed: Sherman Larsen MD at 16:02 EDT , Service support , Medical Necessity - Tobacco Use Smoking Status: Former smoker Assessment/Plan All Active Problems Hyperglycemia (Acute) Acute ischemic stroke (Acute) This is a 57 presented to the emergency room because of headache, left arm weakness, left-sided neglect and confusion and she was found to have right frontal/temporal region subacute infarct as well as hyperglycemia without history of diabetes she is being admitted for evaluation and treatment. #1 Subacute right frontal/temporal region ischemic stroke: With residual minimal left facial droop, left upper extremity monoparesis and left-sided neglect. Remains stable, no new symptoms or worsening of her deficits. She is on aspirin and statins. Vital signs stable, blood pressure under control. MRI brain performed yesterday revealed acute ischemic infarction of the right frontal/parietal region with mild subacute hemorrhage transformation. Dr. Maldonado reviewed the MRI and he stated that there is no evidence of hemorrhagic transformation. CTA of the head revealed significant focal stenosis of the supraclinoid segment of the right internal carotid artery. CTA of the neck revealed no significant vascular disease or stenosis. Dr. Boucher reviewed the CTA of the head and stated there is no evidence of focal stenosis of the right internal carotid artery. 2D echocardiogram revealed normal ejection fraction, negative for [id number] shunt and no significant valvular heart disease. There was no obvious risk factors or precipitating factors for this acute stroke. Hypercoagulability workup and autoimmune disease workup sent and pending. Neurology recommended LEOPOLDO, which was ordered. #2 hyperglycemia: Without history of diabetes. Blood sugar has been around 110s. Hemoglobin A1c was 5.7. No diabetes. #3 chronic back pain: Status post removal of spinal cord stimulator few years ago, connectors still in place. Stable, continue methadone and Percocet as needed for pain. #4 anxiety: Continue Xanax nightly. #5 reflex sympathetic dystrophy: Continue methadone and Percocet as needed for pain. #6 DVT prophylaxis: Subcu Lovenox. This note was generated with [employer] dictation software. It may contain incorrect words, spelling, and punctuation that were not noted in checking the note before signing. Code Visit Inpatient E&M: 40511 Subs Hosp L2
--- NOTE | 2017-09-24 09:30 | PN_ITS ---
Patient Problems: Active and Suspected Problems Hyperglycemia (Acute) Acute ischemic stroke (Acute) Subjective: Chief complaint: Follow-up after admission for acute stroke. Patient seen and examined. No acute events overnight. Headache is improving. Weakness of the left upper extremity is the same. No new complaints. Vital signs are stable. - Physical Exam General: Alert, Oriented x3, Cooperative, No apparent distress HEENT: Atraumatic, PERRLA, EOMI, Normocephalic Oral: Moist Mucosa, No Gingival or Mucosal Lesions/ Ulcerations Neck: Supple, No JVD, Negative Carotid Bruits, Trachea Midline, Thyroid Normal Size and Texture Lungs: Clear to auscultation, Normal air movement, No rhonchi, No wheeze, No rales Cardiovascular: Regular rate, Regular Rhythm, Normal S1, Normal S2, No murmurs Abdomen: Bowel Sounds Present, Soft, Non Tender, Non-Distended, No Hepato- splenomegaly Extremities: No clubbing, No cyanosis, No edema Skin: No rashes, No breakdown Lymphatic: No Cervical, Supraclavicular, or Inguinal Adenopathy Neurological: - - Minimal left facial droop, other cranial nerves are intact. Left upper extremity monoparesis. Psych/Mental Status: Normal Affect, Appropriate, Alert and oriented to time, place, person, mood and affect Vital Signs Temp Pulse Resp BP Pulse Ox 97.7 F L 56 L 16 121/51 H 95 09/24/17 04:00 09/24/17 06:57 09/24/17 04:00 09/24/17 04:00 09/24/17 04:00 Oxygen Delivery Method Room Air Weight: 212 lb 8.41 oz Body Mass Index (BMI) 35.4 Intake and Output for Last 24 Hours 09/22/17 09/23/17 09/24/17 23:59 23:59 23:59 Intake Total 1800 / 1800 1320 / 1320 240 / 240 Balance 1800 / 1800 1320 / 1320 240 / 240 Laboratory Tests Past 24 Hrs 09/20/17 09/24/17 11:45 09:00 Functional Protein C Pending Antithrombin III Ag Pending Func Antithrombin III Pending JAMES Screen Positive H CHANTELLE-1 Antibody <0.2 SS-A/Ro IgG Antibody < 0.2 SS-B/La IgG Antibody < 0.2 Sm ([place]parks) Antibody <0.2 MEAT WRAPPER Antibody <0.2 Scl-70 Scleroderma Ab <0.2 Double Strand DNA Ab 1 Centromere B Antibody >8.0 H Beta-2-GPI IgG Ab Pending Beta-2-GPI IgA Ab Pending Beta-2-GPI IgM Ab Pending Factor II DNA Analysis Pending Clinical Impression(s) from Imaging Studies MRI brain 09/23/17 11:46 IMPRESSION: Acute ischemic infarction in the right frontal parietal region with mild subacute hemorrhagic transformation or lamellar necrosis N.B. : The above information has been verbally conveyed by Sherman Larsen MD to , Covering Physician, on 09/23/2017 16:12:40 (ET). Electronically Signed: Sherman Larsen MD at 16:02 EDT , Service support , Medical Necessity - Tobacco Use Smoking Status: Former smoker Assessment/Plan All Active Problems Hyperglycemia (Acute) Acute ischemic stroke (Acute) This is a 57 presented to the emergency room because of headache, left arm weakness, left-sided neglect and confusion and she was found to have right frontal/temporal region subacute infarct as well as hyperglycemia without history of diabetes she is being admitted for evaluation and treatment. #1 Subacute right frontal/temporal region ischemic stroke: With residual minimal left facial droop, left upper extremity monoparesis and left-sided neglect. Remains stable, no new symptoms or worsening of her deficits. She is on aspirin and statins. Vital signs stable, blood pressure under control. MRI brain performed yesterday revealed acute ischemic infarction of the right frontal/parietal region with mild subacute hemorrhage transformation. Dr. Maldonado reviewed the MRI and he stated that there is no evidence of hemorrhagic transformation. CTA of the head revealed significant focal stenosis of the supraclinoid segment of the right internal carotid artery. CTA of the neck revealed no significant vascular disease or stenosis. Dr. Boucher reviewed the CTA of the head and stated there is no evidence of focal stenosis of the right internal carotid artery. 2D echocardiogram revealed normal ejection fraction, negative for [id number] shunt and no significant valvular heart disease. There was no obvious risk factors or precipitating factors for this acute stroke. Hypercoagulability workup and autoimmune disease workup sent and pending. Neurology recommended LEOPOLDO, which was ordered. #2 hyperglycemia: Without history of diabetes. Blood sugar has been around 110s. Hemoglobin A1c was 5.7. No diabetes. #3 chronic back pain: Status post removal of spinal cord stimulator few years ago, connectors still in place. Stable, continue methadone and Percocet as needed for pain. #4 anxiety: Continue Xanax nightly. #5 reflex sympathetic dystrophy: Continue methadone and Percocet as needed for pain. #6 DVT prophylaxis: Subcu Lovenox. This note was generated with [employer] dictation software. It may contain incorrect words, spelling, and punctuation that were not noted in checking the note before signing. Code Visit Inpatient E&M: 31276 Subs Hosp L2
[2017-09-24] MEDS: Calcium Carbonate 500 MG Tablet 1000 MG PO ×2 (12:39→19:54)
[2017-09-24] MEDS: Magnesium Hydroxide 30 ML UDC PO (12:52)
--- NOTE | 2017-09-24 13:55 | PCM.PN.NEU ---
Patient Problems: Active and Suspected Problems Hyperglycemia (Acute) Acute ischemic stroke (Acute) Subjective: No issues overnight. - Physical Exam General: Alert HEENT: Normocephalic Neck: Supple Lungs: Normal air movement Cardiovascular: Normal S1, Normal S2 Abdomen: Bowel Sounds Present Extremities: No cyanosis Skin: No rashes Musculoskeletal: No Tenderness to Palpation of Joints or Extremities Neurological: - - consious, alert, CN 2-12 grossly intact except mild left UMN facial palsy, power right UE/LE 5/5, Left UE 4/5, LE 5/5, plantars right flexor, left equivocal, denies any sensory loss, no extinction at present, no cerebellar signs, Reflexes + B/L B/S/T/K/A, gait deferred, NIHSS 1 at present, mRS 0 at baseline Psych/Mental Status: Normal Affect Vital Signs Temp Pulse Resp BP Pulse Ox 98.6 F 57 L 18 126/78 H 99 09/24/17 12:00 09/24/17 12:00 09/24/17 12:00 09/24/17 12:00 09/24/17 12:00 Oxygen Delivery Method Room Air Weight: 96.4 kg Body Mass Index (BMI) 35.4 Intake and Output for Last 24 Hours 09/22/17 09/23/17 09/24/17 23:59 23:59 23:59 Intake Total 1800 / 1800 1320 / 1320 720 / 720 Balance 1800 / 1800 1320 / 1320 720 / 720 Laboratory Tests Past 24 Hrs 09/20/17 09/24/17 11:45 09:00 Functional Protein C Pending Antithrombin III Ag Pending Func Antithrombin III Pending JAMES Screen Positive H CHANTELLE-1 Antibody <0.2 SS-A/Ro IgG Antibody < 0.2 SS-B/La IgG Antibody < 0.2 Sm ([place]) Antibody <0.2 DEMAND INSPECTOR Antibody <0.2 Scl-70 Scleroderma Ab <0.2 Double Strand DNA Ab 1 Centromere B Antibody >8.0 H Beta-2-GPI IgG Ab Pending Beta-2-GPI IgA Ab Pending Beta-2-GPI IgM Ab Pending Factor II DNA Analysis Pending Medical Necessity - Tobacco Use Smoking Status: Current every day smoker - smokes about 1 PPD Assessment/Plan All Active Problems Hyperglycemia (Acute) Acute ischemic stroke (Acute) 57 yr CF with PMH RSD, on methadone admitted with acute right MCA stroke, with DOWELL (improving at present), left UE weakness and left facial droop. Was not on ASA at baseline, baseline mRS 0 prior to the stroke. Impression Acute/subacute right MCA (right fronto-parietal) infarct) Plan -ASA 81 mg PO once daily, will avoid dual AP due to the presence of large stroke -Lipitor 80 mg PO q hs -MRI brain- large acute right MCA stroke (right fronto-parietal stroke), reported to show mild subacute hemorrhagic transformation or laminar necrosis (less likely on my review- discussed with Dr. Phipps) and CTA head/neck reviewed- focal stenosis of right supraclinoid ICA -LDL-80, Zhn1n-5.7% -TTE-EF 65%, normal LA size and no PFO -Await LEOPOLDO -Await hypercoagulable panel results -Recommend Rheumatology consult, has positive JAMES and centromere B Antibody (? CREST syndrome), will defer further evaluation and management to Rheumatology and primary team. -Recommend 30 day event recorder -Goal BP < 130/80 mmHg but avoid hypotension and goal Hba1c < 7% -Stroke risk factors discussed and stroke education provided -PT/OT/ST -GI/DVT prophylaxis -Fall precautions -Patient counseled not to smoke -Further medical management per primary team. -Follow up with Neurology as outpatient in 2-3 weeks -Please call with questions if any -Thank you for allowing us to participate in patient management and care I spent 30 minutes taking history, doing physical examination, reviewing medical records, coordinating care and counseling the patient.
--- NOTE | 2017-09-24 13:59 | PN.NEURO_ITS ---
Patient Problems: Active and Suspected Problems Hyperglycemia (Acute) Acute ischemic stroke (Acute) Subjective: No issues overnight. - Physical Exam General: Alert HEENT: Normocephalic Neck: Supple Lungs: Normal air movement Cardiovascular: Normal S1, Normal S2 Abdomen: Bowel Sounds Present Extremities: No cyanosis Skin: No rashes Musculoskeletal: No Tenderness to Palpation of Joints or Extremities Neurological: - - consious, alert, CN 2-12 grossly intact except mild left UMN facial palsy, power right UE/LE 5/5, Left UE 4/5, LE 5/5, plantars right flexor , left equivocal, denies any sensory loss, no extinction at present, no cerebellar signs, Reflexes + B/L B/S/T/K/A, gait deferred, NIHSS 1 at present, mRS 0 at baseline Psych/Mental Status: Normal Affect Vital Signs Temp Pulse Resp BP Pulse Ox 98.6 F 57 L 18 126/78 H 99 09/24/17 12:00 09/24/17 12:00 09/24/17 12:00 09/24/17 12:00 09/24/17 12:00 Oxygen Delivery Method Room Air Weight: 96.4 kg Body Mass Index (BMI) 35.4 Intake and Output for Last 24 Hours 09/22/17 09/23/17 09/24/17 23:59 23:59 23:59 Intake Total 1800 / 1800 1320 / 1320 720 / 720 Balance 1800 / 1800 1320 / 1320 720 / 720 Laboratory Tests Past 24 Hrs 09/20/17 09/24/17 11:45 09:00 Functional Protein C Pending Antithrombin III Ag Pending Func Antithrombin III Pending JAMES Screen Positive H CHANTELLE-1 Antibody <0.2 SS-A/Ro IgG Antibody < 0.2 SS-B/La IgG Antibody < 0.2 Sm ([place]) Antibody <0.2 UPPER LINING CEMENTER Antibody <0.2 Scl-70 Scleroderma Ab <0.2 Double Strand DNA Ab 1 Centromere B Antibody >8.0 H Beta-2-GPI IgG Ab Pending Beta-2-GPI IgA Ab Pending Beta-2-GPI IgM Ab Pending Factor II DNA Analysis Pending Medical Necessity - Tobacco Use Smoking Status: Current every day smoker - smokes about 1 PPD Assessment/Plan All Active Problems Hyperglycemia (Acute) Acute ischemic stroke (Acute) 57 yr CF with PMH RSD, on methadone admitted with acute right MCA stroke, with DOWELL (improving at present), left UE weakness and left facial droop. Was not on ASA at baseline, baseline mRS 0 prior to the stroke. Impression Acute/subacute right MCA (right fronto-parietal) infarct) Plan -ASA 81 mg PO once daily, will avoid dual AP due to the presence of large stroke -Lipitor 80 mg PO q hs -MRI brain- large acute right MCA stroke (right fronto-parietal stroke), reported to show mild subacute hemorrhagic transformation or laminar necrosis ( less likely on my review- discussed with Dr. Phipps) and CTA head/neck reviewed- focal stenosis of right supraclinoid ICA -LDL-80, Bvy5k-6.7% -TTE-EF 65%, normal LA size and no PFO -Await LEOPOLDO -Await hypercoagulable panel results -Recommend Rheumatology consult, has positive JAMES and centromere B Antibody (? CREST syndrome), will defer further evaluation and management to Rheumatology and primary team. -Recommend 30 day event recorder -Goal BP < 130/80 mmHg but avoid hypotension and goal Hba1c < 7% -Stroke risk factors discussed and stroke education provided -PT/OT/ST -GI/DVT prophylaxis -Fall precautions -Patient counseled not to smoke -Further medical management per primary team. -Follow up with Neurology as outpatient in 2-3 weeks -Please call with questions if any -Thank you for allowing us to participate in patient management and care I spent 30 minutes taking history, doing physical examination, reviewing medical records, coordinating care and counseling the patient.
[2017-09-24] MEDS: Celecoxib 200 MG Capsule PO (21:01)
[2017-09-24] MEDS: Atorvastatin Calcium 80 MG Tablet PO (21:01)
[2017-09-24] MEDS: ALPRAZolam 0.5 MG Tablet 1 MG PO (21:01)
[2017-09-24] MEDS: Ondansetron 4 MG/2 ML Vial IV (21:08)
[2017-09-25] VITALS (12 sets, daily range): BP systolic 105–132; BP diastolic 65–74; PULSE 47–79; RESP 14–16; TEMP 36.3–36.8; O2SAT 96–100; BMI 35.4
[2017-09-25] MEDS: oxyCODONE 5 MG Tablet PO ×3 (04:29→20:55)
[2017-09-25] MEDS: Enoxaparin 40 MG/0.4 ML Syringe SC (05:29)
[2017-09-25] MEDS: Aspirin 81 MG TAB.CHEW PO (08:19)
[2017-09-25] MEDS: Acetaminophen 325 MG Tablet 650 MG PO (08:19)
--- NOTE | 2017-09-25 08:39 | CASEMGMT ---
Social Work Phone call to [facility] in [facility] inquiring about insurance auth for admission to rehab. Reina states insurance has not given determination at this time. SW to continue to follow. CLEMENCIA Garcia
--- NOTE | 2017-09-25 11:31 | PCM.PROGNOTE ---
Patient Problems: Active and Suspected Problems Hyperglycemia (Acute) Acute ischemic stroke (Acute) Subjective: Chief complaint: Follow-up after admission for acute stroke. Patient seen and examined. No acute events overnight. She is still complaining of intermittent headaches. She has been on methadone for long time but she did not take for the last couple of days. Denies any symptoms. Vital signs are stable. - Physical Exam General: Alert, Oriented x3, Cooperative, No apparent distress HEENT: Atraumatic, PERRLA, EOMI Oral: Moist Mucosa, No Gingival or Mucosal Lesions/ Ulcerations Neck: Supple, No JVD, Negative Carotid Bruits, Trachea Midline, Thyroid Normal Size and Texture Lungs: Clear to auscultation, Normal air movement, No rhonchi, No wheeze, No rales Cardiovascular: Regular rate, Regular Rhythm, Normal S1, Normal S2, No murmurs, PMI Normal Abdomen: Bowel Sounds Present, Soft, Non Tender, Non-Distended, No Hepato-splenomegaly Extremities: No clubbing, No cyanosis, No edema Skin: No rashes, No breakdown Lymphatic: No Cervical, Supraclavicular, or Inguinal Adenopathy Neurological: - - Minimal left-sided facial droop, other cranial nerves are intact. Left upper extremity monoparesis. Psych/Mental Status: Normal Affect, Appropriate, Alert and oriented to time, place, person, mood and affect Vital Signs Temp Pulse Resp BP Pulse Ox 98.0 F 61 16 128/69 H 98 09/25/17 08:00 09/25/17 11:06 09/25/17 08:00 09/25/17 08:00 09/25/17 08:00 Oxygen Delivery Method Room Air Weight: 212 lb 8.41 oz Body Mass Index (BMI) 35.4 Intake and Output for Last 24 Hours 09/23/17 09/24/17 09/25/17 23:59 23:59 23:59 Intake Total 1320 / 1320 1520 / 1520 Balance 1320 / 1320 1520 / 1520 Assessment/Plan All Active Problems Hyperglycemia (Acute) Acute ischemic stroke (Acute) This is a 57 presented to the emergency room because of headache, left arm weakness, left-sided neglect and confusion and she was found to have right frontal/temporal region subacute infarct as well as hyperglycemia without history of diabetes she is being admitted for evaluation and treatment. #1 Subacute right MCA (frontal/temporal region) ischemic stroke: With residual minimal left facial droop, left upper extremity monoparesis and left-sided neglect. Remains stable, no new symptoms or worsening of her deficits. She is on aspirin and statins. Vital signs stable, blood pressure under control. MRI brain performed yesterday revealed acute ischemic infarction of the right frontal/parietal region with mild subacute hemorrhage transformation. Dr. Maldonado reviewed the MRI and he stated that there is no evidence of hemorrhagic transformation. CTA of the head revealed significant focal stenosis of the supraclinoid segment of the right internal carotid artery. CTA of the neck revealed no significant vascular disease or stenosis. Dr. Boucher reviewed the CTA of the head and stated there is no evidence of focal stenosis of the right internal carotid artery. 2D echocardiogram revealed normal ejection fraction, negative for [id number] shunt and no significant valvular heart disease. Hypercoagulability workup and autoimmune disease workup sent and pending. Neurology recommended LEOPOLDO and it was supposed to be done today but was postponed until tomorrow. Plan for LEOPOLDO tomorrow morning. #2 hyperglycemia: Without history of diabetes. Blood sugar has been around 110s. Hemoglobin A1c was 5.7. No diabetes. #3 chronic back pain: Status post removal of spinal cord stimulator few years ago, connectors still in place. Stable, continue methadone and Percocet as needed for pain. #4 anxiety: Continue Xanax nightly. #5 reflex sympathetic dystrophy: Continue methadone and Percocet as needed for pain. #6 DVT prophylaxis: Subcu Lovenox. This note was generated with [employer] dictation software. It may contain incorrect words, spelling, and punctuation that were not noted in checking the note before signing. Code Visit Inpatient E&M: 97429 Subs Hosp L2
--- NOTE | 2017-09-25 11:35 | PN_ITS ---
Patient Problems: Active and Suspected Problems Hyperglycemia (Acute) Acute ischemic stroke (Acute) Subjective: Chief complaint: Follow-up after admission for acute stroke. Patient seen and examined. No acute events overnight. She is still complaining of intermittent headaches. She has been on methadone for long time but she did not take for the last couple of days. Denies any symptoms. Vital signs are stable. - Physical Exam General: Alert, Oriented x3, Cooperative, No apparent distress HEENT: Atraumatic, PERRLA, EOMI Oral: Moist Mucosa, No Gingival or Mucosal Lesions/ Ulcerations Neck: Supple, No JVD, Negative Carotid Bruits, Trachea Midline, Thyroid Normal Size and Texture Lungs: Clear to auscultation, Normal air movement, No rhonchi, No wheeze, No rales Cardiovascular: Regular rate, Regular Rhythm, Normal S1, Normal S2, No murmurs, PMI Normal Abdomen: Bowel Sounds Present, Soft, Non Tender, Non-Distended, No Hepato- splenomegaly Extremities: No clubbing, No cyanosis, No edema Skin: No rashes, No breakdown Lymphatic: No Cervical, Supraclavicular, or Inguinal Adenopathy Neurological: - - Minimal left-sided facial droop, other cranial nerves are intact. Left upper extremity monoparesis. Psych/Mental Status: Normal Affect, Appropriate, Alert and oriented to time, place, person, mood and affect Vital Signs Temp Pulse Resp BP Pulse Ox 98.0 F 61 16 128/69 H 98 09/25/17 08:00 09/25/17 11:06 09/25/17 08:00 09/25/17 08:00 09/25/17 08:00 Oxygen Delivery Method Room Air Weight: 212 lb 8.41 oz Body Mass Index (BMI) 35.4 Intake and Output for Last 24 Hours 09/23/17 09/24/17 09/25/17 23:59 23:59 23:59 Intake Total 1320 / 1320 1520 / 1520 Balance 1320 / 1320 1520 / 1520 Assessment/Plan All Active Problems Hyperglycemia (Acute) Acute ischemic stroke (Acute) This is a 57 presented to the emergency room because of headache, left arm weakness, left-sided neglect and confusion and she was found to have right frontal/temporal region subacute infarct as well as hyperglycemia without history of diabetes she is being admitted for evaluation and treatment. #1 Subacute right MCA (frontal/temporal region) ischemic stroke: With residual minimal left facial droop, left upper extremity monoparesis and left-sided neglect. Remains stable, no new symptoms or worsening of her deficits. She is on aspirin and statins. Vital signs stable, blood pressure under control. MRI brain performed yesterday revealed acute ischemic infarction of the right frontal/parietal region with mild subacute hemorrhage transformation. Dr. Maldonado reviewed the MRI and he stated that there is no evidence of hemorrhagic transformation. CTA of the head revealed significant focal stenosis of the supraclinoid segment of the right internal carotid artery. CTA of the neck revealed no significant vascular disease or stenosis. Dr. Boucher reviewed the CTA of the head and stated there is no evidence of focal stenosis of the right internal carotid artery. 2D echocardiogram revealed normal ejection fraction, negative for uhkes-zh-ycow shunt and no significant valvular heart disease. Hypercoagulability workup and autoimmune disease workup sent and pending. Neurology recommended LEOPOLDO and it was supposed to be done today but was postponed until tomorrow. Plan for LEOPOLDO tomorrow morning. #2 hyperglycemia: Without history of diabetes. Blood sugar has been around 110s. Hemoglobin A1c was 5.7. No diabetes. #3 chronic back pain: Status post removal of spinal cord stimulator few years ago, connectors still in place. Stable, continue methadone and Percocet as needed for pain. #4 anxiety: Continue Xanax nightly. #5 reflex sympathetic dystrophy: Continue methadone and Percocet as needed for pain. #6 DVT prophylaxis: Subcu Lovenox. This note was generated with [employer] dictation software. It may contain incorrect words, spelling, and punctuation that were not noted in checking the note before signing. Code Visit Inpatient E&M: 63944 Subs Hosp L2
[2017-09-25 16:10] LABS: Dilute Prothrombin Time (dPT) 47.8 sec (0.0-55.0); Dilute Russell Viper Venom 41.4 sec (0.0-47.0); PTT-LA 42.2 sec (0.0-51.9); Protein C Antigen 139 % (60-150); Protein C, Functional 144 % (73-180); Thrombin Time 19.3 sec (0.0-23.0)
[2017-09-25] MEDS: Calcium Carbonate 500 MG Tablet 1000 MG PO (16:14)
[2017-09-25] MEDS: Atorvastatin Calcium 80 MG Tablet PO (20:55)
[2017-09-25] MEDS: Celecoxib 200 MG Capsule PO (20:55)
[2017-09-25] MEDS: ALPRAZolam 0.5 MG Tablet 1 MG PO (20:56)
[2017-09-26] VITALS (13 sets, daily range): BP systolic 118–135; BP diastolic 57–80; PULSE 37–74; RESP 14–18; TEMP 36.6–36.8; O2SAT 95–100; BMI 35.4
[2017-09-26] MEDS: Enoxaparin 40 MG/0.4 ML Syringe SC (05:39)
[2017-09-26] MEDS: Acetaminophen 325 MG Tablet 650 MG PO ×2 (07:49→22:10)
[2017-09-26] MEDS: Aspirin 81 MG TAB.CHEW PO (07:50)
--- NOTE | 2017-09-26 13:53 | PCM.PN.HOSP ---
Patient Problems: Active and Suspected Problems Hyperglycemia (Acute) Acute ischemic stroke (Acute) Subjective: Patient is a 57-year-old lady presented with left arm weakness with associated left-sided neglect and confusion she was found to have subacute right MCA stroke in the region of the frontal and temporal region admitted to monitored bed for further management Objective: GENERAL: cooperative HEENT: Clear conjunctiva, NECK; supple, normal thyroid,. CHEST: Clear to auscultation bilaterally, HEART: Regular S1 S2, no audible murmurs ABDOMEN: soft, non-tender, RECTAL: deferred EXTREMITIES: No edema, no clubbing, no cyanosis. 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 SKIN: No Rash Vitals/I&O's: Vital Signs Temp Pulse Resp BP Pulse Ox 98.3 F 63 14 131/62 H 100 09/26/17 12:00 09/26/17 12:00 09/26/17 12:00 09/26/17 12:00 09/26/17 12:00 Oxygen Delivery Method Room Air Weight: 96.4 kg Body Mass Index (BMI) 35.4 Intake and Output for Last 24 Hours 09/24/17 09/25/17 09/26/17 23:59 23:59 23:59 Intake Total 1520 / 1520 960 / 960 980 / 980 Balance 1520 / 1520 960 / 960 980 / 980 Current Medications Acetaminophen (Tylenol) 650 mg PO Q6H PRN PRN PRN Reason: pain/fever Last Admin: 09/26/17 07:49 Dose: 650 mg Alprazolam (Xanax) 1 mg PO QHS [facility] Last Admin: 09/25/17 20:56 Dose: 1 mg Aspirin (Aspirin, Baby) 81 mg PO DAILY@0800 [facility] Last Admin: 09/26/17 07:50 Dose: 81 mg Atorvastatin Calcium (Lipitor) 80 mg PO QHS [facility] Last Admin: 09/25/17 20:55 Dose: 80 mg Calcium Carbonate (Tums) 1,000 mg PO Q4H PRN PRN PRN Reason: DYSPEPSIA/INDIGESTION Last Admin: 09/25/17 16:14 Dose: 1,000 mg Celecoxib (Celebrex) 200 mg PO QHS [facility] Last Admin: 09/25/17 20:55 Dose: 200 mg Enoxaparin Sodium (Lovenox) 40 mg SC DAILY@0600 [facility] Last Admin: 09/26/17 05:39 Dose: 40 mg Magnesium Hydroxide (Milk Of Magnesia) 30 ml PO DAILY PRN PRN Reason: Constipation Last Admin: 09/24/17 12:52 Dose: 30 ml Methadone HCl () 10 mg PO Q8 [facility] Last Admin: 09/26/17 09:42 Dose: Not Given Ondansetron HCl (Zofran) 4 mg IV Q6H PRN PRN PRN Reason: NAUSEA/VOMITING Last Admin: 09/24/17 21:08 Dose: 4 mg Oxycodone HCl (Oxyir) 5 mg PO TID PRN PRN Reason: PAIN Last Admin: 09/25/17 20:55 Dose: 5 mg Medical Necessity - Tobacco Use Smoking Status: Current every day smoker Assessment/Plan All Active Problems Hyperglycemia (Acute) Acute ischemic stroke (Acute) Patient is a 57-year-old lady presented with left arm weakness with associated left-sided neglect and confusion she was found to have subacute right MCA stroke in the region of the frontal and temporal region admitted to monitored bed for further management 1. Subacute right MCA ischemic stroke in the region of the frontal and temporal lobes. Patient presented with left upper extremity paresis as well as left-sided neglect. CTA of the neck revealed no significant stenosis however that of the brain demonstrated focal stenosis involving the supraclinoid segment of the right ICA. Patient workup so far has included a 2D echo as well as an autoimmune disease workup was for patient to have undergone LEOPOLDO however due to equipment malfunction this had to be postponed 2. Hyperglycemia; resolved hemoglobin A1c was 5.7 3. Chronic back pain managed with methadone and Percocet as needed 4. Anxiety disorder patient is on Xanax nightly 5. Reflex sympathetic dystrophy involving the right lower extremity patient is on methadone and Percocet 6. DVT prophylaxis SC Lovenox 7. Positive JAMES as well as Centomere B antibody (usually found in patient with Raynaud's/crest syndrome) patient however does not have any clinical symptoms. Did discuss results with patient with plans for patient to follow-up with rheumatology as outpatient Code Visit Inpatient E&M: 74549 Subs Hosp L2
--- NOTE | 2017-09-26 13:57 | PN_ITS ---
Patient Problems: Active and Suspected Problems Hyperglycemia (Acute) Acute ischemic stroke (Acute) Subjective: Patient is a 57-year-old lady presented with left arm weakness with associated left-sided neglect and confusion she was found to have subacute right MCA stroke in the region of the frontal and temporal region admitted to monitored bed for further management Objective: GENERAL: cooperative HEENT: Clear conjunctiva, NECK; supple, normal thyroid,. CHEST: Clear to auscultation bilaterally, HEART: Regular S1 S2, no audible murmurs ABDOMEN: soft, non-tender, RECTAL: deferred EXTREMITIES: No edema, no clubbing, no cyanosis. 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; left upper extremity weakness SKIN: No Rash Vitals/I&O's: Vital Signs Temp Pulse Resp BP Pulse Ox 98.3 F 63 14 131/62 H 100 09/26/17 12:00 09/26/17 12:00 09/26/17 12:00 09/26/17 12:00 09/26/17 12:00 Oxygen Delivery Method Room Air Weight: 96.4 kg Body Mass Index (BMI) 35.4 Intake and Output for Last 24 Hours 09/24/17 09/25/17 09/26/17 23:59 23:59 23:59 Intake Total 1520 / 1520 960 / 960 980 / 980 Balance 1520 / 1520 960 / 960 980 / 980 Current Medications Acetaminophen (Tylenol) 650 mg PO Q6H PRN PRN PRN Reason: pain/fever Last Admin: 09/26/17 07:49 Dose: 650 mg Alprazolam (Xanax) 1 mg PO QHS [facility] Last Admin: 09/25/17 20:56 Dose: 1 mg Aspirin (Aspirin, Baby) 81 mg PO DAILY@0800 [facility] Last Admin: 09/26/17 07:50 Dose: 81 mg Atorvastatin Calcium (Lipitor) 80 mg PO QHS [facility] Last Admin: 09/25/17 20:55 Dose: 80 mg Calcium Carbonate (Tums) 1,000 mg PO Q4H PRN PRN PRN Reason: DYSPEPSIA/INDIGESTION Last Admin: 09/25/17 16:14 Dose: 1,000 mg Celecoxib (Celebrex) 200 mg PO QHS [facility] Last Admin: 09/25/17 20:55 Dose: 200 mg Enoxaparin Sodium (Lovenox) 40 mg SC DAILY@0600 [facility] Last Admin: 09/26/17 05:39 Dose: 40 mg Magnesium Hydroxide (Milk Of Magnesia) 30 ml PO DAILY PRN PRN Reason: Constipation Last Admin: 09/24/17 12:52 Dose: 30 ml Methadone HCl () 10 mg PO Q8 [facility] Last Admin: 09/26/17 09:42 Dose: Not Given Ondansetron HCl (Zofran) 4 mg IV Q6H PRN PRN PRN Reason: NAUSEA/VOMITING Last Admin: 09/24/17 21:08 Dose: 4 mg Oxycodone HCl (Oxyir) 5 mg PO TID PRN PRN Reason: PAIN Last Admin: 09/25/17 20:55 Dose: 5 mg Medical Necessity - Tobacco Use Smoking Status: Current every day smoker Assessment/Plan All Active Problems Hyperglycemia (Acute) Acute ischemic stroke (Acute) Patient is a 57-year-old lady presented with left arm weakness with associated left-sided neglect and confusion she was found to have subacute right MCA stroke in the region of the frontal and temporal region admitted to monitored bed for further management 1. Subacute right MCA ischemic stroke in the region of the frontal and temporal lobes. Patient presented with left upper extremity paresis as well as left-sided neglect. CTA of the neck revealed no significant stenosis however that of the brain demonstrated focal stenosis involving the supraclinoid segment of the right ICA. Patient workup so far has included a 2D echo as well as an autoimmune disease workup was for patient to have undergone LEOPOLDO however due to equipment malfunction this had to be postponed 2. Hyperglycemia; resolved hemoglobin A1c was 5.7 3. Chronic back pain managed with methadone and Percocet as needed 4. Anxiety disorder patient is on Xanax nightly 5. Reflex sympathetic dystrophy involving the right lower extremity patient is on methadone and Percocet 6. DVT prophylaxis SC Lovenox 7. Positive JAMES as well as Centomere B antibody (usually found in patient with Raynaud's/crest syndrome) patient however does not have any clinical symptoms. Did discuss results with patient with plans for patient to follow-up with rheumatology as outpatient Code Visit Inpatient E&M: 83473 Subs Hosp L2
[2017-09-26] MEDS: oxyCODONE 5 MG Tablet PO (16:35)
[2017-09-26 17:10] LABS: Anti-Cardiolipin Ab, IgG, Qn < 9 GPL U/mL (0-14); Anti-Cardiolipin Ab, IgM, Qn 21 MPL U/mL (0-12); Antithrombin 3 Function 104 % (75-135); Interpretation Comment: (.); Protein S, Free 115 % (57-157); Protein S, Funtional 79 % (63-140); Protein S, Total 99 % (60-150)
[2017-09-26] MEDS: Atorvastatin Calcium 80 MG Tablet PO (22:08)
[2017-09-26] MEDS: Calcium Carbonate 500 MG Tablet 1000 MG PO (22:08)
[2017-09-26] MEDS: Celecoxib 200 MG Capsule PO (22:08)
[2017-09-26] MEDS: ALPRAZolam 0.5 MG Tablet 1 MG PO (22:10)
[2017-09-26] MEDS: Ondansetron 4 MG/2 ML Vial IV (22:11)
[2017-09-27] VITALS (12 sets, daily range): BP systolic 93–131; BP diastolic 39–79; PULSE 50–80; RESP 12–18; TEMP 36.4–36.8; O2SAT 96–100; BMI 35.4
[2017-09-27] MEDS: oxyCODONE 5 MG Tablet PO ×3 (00:20→22:25)
[2017-09-27] MEDS: Enoxaparin 40 MG/0.4 ML Syringe SC (05:08)
--- NOTE | 2017-09-27 07:55 | PCM.PN.HOSP ---
Patient Problems: Active and Suspected Problems Hyperglycemia (Acute) Acute ischemic stroke (Acute) Subjective: Patient seen had a relatively uneventful night still awaiting insurance precertification prior to her being transferred to the inpatient rehab unit. Plan is for patient also to undergo LEOPOLDO prior to being discharged from the facility Objective: GENERAL: cooperative HEENT: Clear conjunctiva, NECK; supple, normal thyroid,. CHEST: Clear to auscultation bilaterally, HEART: Regular S1 S2, no audible murmurs ABDOMEN: soft, non-tender, RECTAL: deferred EXTREMITIES: No edema, no clubbing, no cyanosis. 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 SKIN: No Rash Vitals/I&O's: Vital Signs Temp Pulse Resp BP Pulse Ox 97.6 F L 64 18 111/69 100 09/27/17 04:00 09/27/17 07:00 09/27/17 04:00 09/27/17 04:00 09/27/17 04:00 Oxygen Delivery Method Room Air Weight: 96.4 kg Body Mass Index (BMI) 35.4 Intake and Output for Last 24 Hours 09/25/17 09/26/17 09/27/17 23:59 23:59 23:59 Intake Total 960 / 960 1480 / 1480 Balance 960 / 960 1480 / 1480 Laboratory Results 09/20/17 11:45: PT Diluted 47.8, PT Ratio 1.00, INR Not Reportable, APTT Not Reportable, Thrombin Time 19.3, Thrombin Time Mix Not Reportable, Lupus Anticoag aPTT 42.2, Dil Garcia Viper Venom 41.4, Lupus Anticoag Interp Comment:, Protein C Antigen 139, Prot C Funct Activity 144, Functional Protein S 79, Free Protein S 115, Total Protein S 99, Func Antithrombin III 104, Factor V Leiden Mutat Comment H, Anti-Cardiolipin IgG Ab < 9, Anti-Cardiolipin IgM Ab 21 H Current Medications Acetaminophen (Tylenol) 650 mg PO Q6H PRN PRN PRN Reason: pain/fever Last Admin: 09/26/17 22:10 Dose: 650 mg Alprazolam (Xanax) 1 mg PO QHS [facility] Last Admin: 09/26/17 22:10 Dose: 1 mg Aspirin (Aspirin, Baby) 81 mg PO DAILY@0800 [facility] Last Admin: 09/26/17 07:50 Dose: 81 mg Atorvastatin Calcium (Lipitor) 80 mg PO QHS [facility] Last Admin: 09/26/17 22:08 Dose: 80 mg Calcium Carbonate (Tums) 1,000 mg PO Q4H PRN PRN PRN Reason: DYSPEPSIA/INDIGESTION Last Admin: 09/26/17 22:08 Dose: 1,000 mg Celecoxib (Celebrex) 200 mg PO QHS [facility] Last Admin: 09/26/17 22:08 Dose: 200 mg Enoxaparin Sodium (Lovenox) 40 mg SC DAILY@0600 [facility] Last Admin: 09/27/17 05:08 Dose: 40 mg Magnesium Hydroxide (Milk Of Magnesia) 30 ml PO DAILY PRN PRN Reason: Constipation Last Admin: 09/24/17 12:52 Dose: 30 ml Methadone HCl () 10 mg PO Q8 [facility] Last Admin: 09/27/17 05:08 Dose: Not Given Ondansetron HCl (Zofran) 4 mg IV Q6H PRN PRN PRN Reason: NAUSEA/VOMITING Last Admin: 09/26/17 22:11 Dose: 4 mg Oxycodone HCl (Oxyir) 5 mg PO TID PRN PRN Reason: PAIN Last Admin: 09/27/17 00:20 Dose: 5 mg Medical Necessity - Tobacco Use Smoking Status: Current every day smoker Assessment/Plan All Active Problems Hyperglycemia (Acute) Acute ischemic stroke (Acute) Patient is a 57-year-old lady presented with left arm weakness with associated left-sided neglect and confusion she was found to have subacute right MCA stroke in the region of the frontal and temporal region admitted to monitored bed for further management 1. Subacute right MCA ischemic stroke in the region of the frontal and temporal lobes. Patient presented with left upper extremity paresis as well as left-sided neglect. CTA of the neck revealed no significant stenosis however that of the brain demonstrated focal stenosis involving the supraclinoid segment of the right ICA. Patient workup so far has included a 2D echo as well as an autoimmune disease workup was for patient to have undergone LEOPOLDO however due to equipment malfunction this had to be postponed possibly to the week of 09/30/2017 2. Hyperglycemia; resolved hemoglobin A1c was 5.7 3. Chronic back pain managed with methadone and Percocet as needed 4. Anxiety disorder patient is on Xanax nightly 5. Reflex sympathetic dystrophy involving the right lower extremity patient is on methadone and Percocet 6. DVT prophylaxis SC Lovenox 7. Positive JAMES as well as Centromere B antibody (usually found in patient with Raynaud's/crest syndrome) patient however does not have any clinical symptoms. Did discuss results with patient with plans for patient to follow-up with rheumatology as outpatient Code Visit Inpatient E&M: 68131 Subs Hosp L2
[2017-09-27] MEDS: Acetaminophen 325 MG Tablet 650 MG PO ×2 (08:02→17:40)
[2017-09-27] MEDS: Aspirin 81 MG TAB.CHEW PO (08:02)
--- NOTE | 2017-09-27 08:43 | CASEMGMT ---
SW spoke w/pt this morning, let her know that the precert for insurance is still pending, will let her know as soon as we hear anything. SW explained will check w/rehab to see what the status is. SW called Reina in rehab, left a message asking to call this SW back and to let this SW know if there is any way to assist w/this process. SW will continue to follow. ERIK Real, GENETIC PHYSICIAN
--- NOTE | 2017-09-27 13:08 | CASEMGMT ---
Addendum entered by Megan Ramos 09/27/17 15:28: SW will be leaving shortly, SW left a message for Reina to call the PCU directly if she hears anything from pt's insurance. SW also left the message that if pt is denied rehab, to go ahead and have [facility] start the precert for TCU. SW let weigher and charger know that Reina may be calling regarding pt's precert, and to let pt know if she calls regarding the rehab approval or denial. SW let pt and who is now in room know that we are still waiting for precert, and that though this SW will be leaving shortly, Reina from rehab will call the floor if she hears anything from insurance. SW explained also that if rehab is denied, we can start a precert for TCU. Pt and state understanding. then asked when pt can have the LEOPOLDO as the machine is down, is wondering how long it will be to get the machine up and running again. states the doctor who just came in said that perhaps pt should be transferred to get the LEOPOLDO. SW asked weigher and charger, she called to quality assurance lab technician, it could be a week before the machine is fixed. location manager is texting physician in regard to this. ERIK Real, [employer] SUPERVISOR Original Note: SW spoke w/Reina, she spoke w/someone at [facility], was told that the nurse has the case and is reviewing. Reina states there is a bed in TCU if pt is denied rehab, but Oneyda in TCU would need to start over w/precert. SW spoke w/pt in the room regarding options. Pt does still have a LEOPOLDO pending. SW asked pt if she is denied rehab by insurance, or we still do not hear by the end of the day, and this test can be done as an outpt,would she want to go home. Pt would want to go home. Pt agreeable to [facility] referral as pt's said he would take her, and is open to DME needed, would want to ask her and know cost. Pt would likely need a walker, a tub bench and a 3-1 commode. SW texted physician, pt cannot have the LEOPOLDO as an outpt, will need to stay here for this. SW spoke w/pt, let her know that physician states she needs to stay here to have the LEOPOLDO. SW explained we will continue with the rehab referral, also let her know if rehab is denied we can try for TCU. Pt is in agreement with this. SW will continue to follow, precert for rehab still pending. ERIK Real, [employer] SUPERVISOR
[2017-09-27] MEDS: Calcium Carbonate 500 MG Tablet 1000 MG PO (14:26)
--- NOTE | 2017-09-27 16:46 | CASEMGMT ---
Insurance Review for [facility] facilities if transfer is recommended. -[facility], [facility], [facility], [facility], [facility], [facility], [facility], [facility], [place] ([place]).
[2017-09-27] MEDS: ALPRAZolam 0.5 MG Tablet 1 MG PO (21:51)
[2017-09-27] MEDS: Celecoxib 200 MG Capsule PO (21:51)
[2017-09-27] MEDS: Atorvastatin Calcium 80 MG Tablet PO (21:52)
[2017-09-28] VITALS (11 sets, daily range): BP systolic 97–153; BP diastolic 46–78; PULSE 45–73; RESP 15–18; TEMP 35.8–36.7; O2SAT 97–100; BMI 35.4
--- NOTE | 2017-09-28 04:16 | NURSING ---
This RN is taking over patient care at this time.
[2017-09-28] MEDS: Enoxaparin 40 MG/0.4 ML Syringe SC (05:12)
--- NOTE | 2017-09-28 07:52 | PCM.PN.HOSP ---
Patient Problems: Active and Suspected Problems Hyperglycemia (Acute) Acute ischemic stroke (Acute) Subjective: Patient reports no interval issues, left-sided weakness improving Objective: No acute distress, resting comfortably Vitals/I&O's: Vital Signs Temp Pulse Resp BP Pulse Ox 96.5 F L 53 L 18 118/65 98 09/28/17 03:50 09/28/17 07:17 09/28/17 03:50 09/28/17 03:50 09/28/17 03:50 Oxygen Delivery Method Room Air Weight: 212 lb 8.41 oz Body Mass Index (BMI) 35.4 Intake and Output for Last 24 Hours 09/26/17 09/27/17 09/28/17 23:59 23:59 23:59 Intake Total 1480 / 1480 500 / 500 240 / 240 Balance 1480 / 1480 500 / 500 240 / 240 General: Alert, Oriented x3, Cooperative HEENT: PERRLA, EOMI Neck: No JVD Lungs: Clear to auscultation Cardiovascular: Regular rate, Regular Rhythm, Normal S1, Normal S2 Extremities: No edema Neurological: Cranial nerves II-XII grossly intact, Neuro grossly intact, - - Very mild left upper extremity/left hand weakness Psych/Mental Status: Normal Affect, Appropriate Current Medications Acetaminophen (Tylenol) 650 mg PO Q6H PRN PRN PRN Reason: pain/fever Last Admin: 09/27/17 17:40 Dose: 650 mg Alprazolam (Xanax) 1 mg PO QHS [facility] Last Admin: 09/27/17 21:51 Dose: 1 mg Aspirin (Aspirin, Baby) 81 mg PO DAILY@0800 [facility] Last Admin: 09/27/17 08:02 Dose: 81 mg Atorvastatin Calcium (Lipitor) 80 mg PO QHS [facility] Last Admin: 09/27/17 21:52 Dose: 80 mg Calcium Carbonate (Tums) 1,000 mg PO Q4H PRN PRN PRN Reason: DYSPEPSIA/INDIGESTION Last Admin: 09/27/17 14:26 Dose: 1,000 mg Celecoxib (Celebrex) 200 mg PO QHS [facility] Last Admin: 09/27/17 21:51 Dose: 200 mg Enoxaparin Sodium (Lovenox) 40 mg SC DAILY@0600 [facility] Last Admin: 09/28/17 05:12 Dose: 40 mg Magnesium Hydroxide (Milk Of Magnesia) 30 ml PO DAILY PRN PRN Reason: Constipation Last Admin: 09/24/17 12:52 Dose: 30 ml Methadone HCl () 10 mg PO Q8 [facility] Last Admin: 09/28/17 05:12 Dose: Not Given Ondansetron HCl (Zofran) 4 mg IV Q6H PRN PRN PRN Reason: NAUSEA/VOMITING Last Admin: 09/26/17 22:11 Dose: 4 mg Oxycodone HCl (Oxyir) 5 mg PO TID PRN PRN Reason: PAIN Last Admin: 09/27/17 22:25 Dose: 5 mg Medical Necessity - Tobacco Use Smoking Status: Current every day smoker Assessment/Plan All Active Problems Hyperglycemia (Acute) Acute ischemic stroke (Acute) 57-year-old patient with history of right lower extremity RSD was admitted 09/19/2017 with right MCA frontotemporal CVA . Symptoms included left arm weakness, left-sided neglect, confusion. 1. Subacute right MCA ischemic stroke, frontotemporal. CTA of neck revealed no extracranial stenoses, but CTA head noted focal stenosis of the supraclinoid segment of the right ICA. TTE revealed EF 65%, no PFO, normal left atrial size. LDL was 80. A1c was 5.7. Patient is smoker. Autoimmune workup was pertinent for + JAMES, + anticentromere B, + KARLEY IgM The patient is being followed in consultation by neurology services. She has had no recurrent symptoms. L UE weakness continues to improved. A LEOPOLDO is planned however probe not available. Currently addressing discharge planning to subacute rehab or TCU, at which time patient could have LEOPOLDO. If not patient to remain in hospital over the weekend for LEOPOLDO next week. Hypercoagulable profile indicates heterozygous factor 5 Leiden. patient remains in sinus rhythm. Consider 30 day event recorder as OP. Neurology following patient. I am not sure if the heterozygous factor V Leiden would warrant any additional therapy. Patient remains on medical therapy with aspirin, statin. Smoking cessation advised. 2. Hyperglycemia resolved, hemoglobin A1c 5.7 3. Chronic back pain Chronic methadone, Percocet as needed 4. Anxiety disorder Xanax nightly 5. RSD of right lower extremity Methadone, Percocet 6. + JAMES, + centromere B Ab, + KARLEY IgM -- nothing clinically to suggest CREST although needs OP follow up with Rheumatology Code Visit Inpatient E&M: 90782 Subs Hosp L2
--- NOTE | 2017-09-28 08:03 | PN_ITS ---
Patient Problems: Active and Suspected Problems Hyperglycemia (Acute) Acute ischemic stroke (Acute) Subjective: Patient reports no interval issues, left-sided weakness improving Objective: No acute distress, resting comfortably Vitals/I&O's: Vital Signs Temp Pulse Resp BP Pulse Ox 96.5 F L 53 L 18 118/65 98 09/28/17 03:50 09/28/17 07:17 09/28/17 03:50 09/28/17 03:50 09/28/17 03:50 Oxygen Delivery Method Room Air Weight: 212 lb 8.41 oz Body Mass Index (BMI) 35.4 Intake and Output for Last 24 Hours 09/26/17 09/27/17 09/28/17 23:59 23:59 23:59 Intake Total 1480 / 1480 500 / 500 240 / 240 Balance 1480 / 1480 500 / 500 240 / 240 General: Alert, Oriented x3, Cooperative HEENT: PERRLA, EOMI Neck: No JVD Lungs: Clear to auscultation Cardiovascular: Regular rate, Regular Rhythm, Normal S1, Normal S2 Extremities: No edema Neurological: Cranial nerves II-XII grossly intact, Neuro grossly intact, - - Very mild left upper extremity/left hand weakness Psych/Mental Status: Normal Affect, Appropriate Current Medications Acetaminophen (Tylenol) 650 mg PO Q6H PRN PRN PRN Reason: pain/fever Last Admin: 09/27/17 17:40 Dose: 650 mg Alprazolam (Xanax) 1 mg PO QHS [facility] Last Admin: 09/27/17 21:51 Dose: 1 mg Aspirin (Aspirin, Baby) 81 mg PO DAILY@0800 [facility] Last Admin: 09/27/17 08:02 Dose: 81 mg Atorvastatin Calcium (Lipitor) 80 mg PO QHS [facility] Last Admin: 09/27/17 21:52 Dose: 80 mg Calcium Carbonate (Tums) 1,000 mg PO Q4H PRN PRN PRN Reason: DYSPEPSIA/INDIGESTION Last Admin: 09/27/17 14:26 Dose: 1,000 mg Celecoxib (Celebrex) 200 mg PO QHS [facility] Last Admin: 09/27/17 21:51 Dose: 200 mg Enoxaparin Sodium (Lovenox) 40 mg SC DAILY@0600 [facility] Last Admin: 09/28/17 05:12 Dose: 40 mg Magnesium Hydroxide (Milk Of Magnesia) 30 ml PO DAILY PRN PRN Reason: Constipation Last Admin: 09/24/17 12:52 Dose: 30 ml Methadone HCl () 10 mg PO Q8 [facility] Last Admin: 09/28/17 05:12 Dose: Not Given Ondansetron HCl (Zofran) 4 mg IV Q6H PRN PRN PRN Reason: NAUSEA/VOMITING Last Admin: 09/26/17 22:11 Dose: 4 mg Oxycodone HCl (Oxyir) 5 mg PO TID PRN PRN Reason: PAIN Last Admin: 09/27/17 22:25 Dose: 5 mg Medical Necessity - Tobacco Use Smoking Status: Current every day smoker Assessment/Plan All Active Problems Hyperglycemia (Acute) Acute ischemic stroke (Acute) 57-year-old patient with history of right lower extremity RSD was admitted 2017 with right MCA frontotemporal CVA . Symptoms included left arm weakness, left-sided neglect, confusion. 1. Subacute right MCA ischemic stroke, frontotemporal. CTA of neck revealed no extracranial stenoses, but CTA head noted focal stenosis of the supraclinoid segment of the right ICA. TTE revealed EF 65%, no PFO, normal left atrial size. LDL was 80. A1c was 5.7. Patient is smoker. Autoimmune workup was pertinent for + JAMES, + anticentromere B, + KARLEY IgM The patient is being followed in consultation by neurology services. She has had no recurrent symptoms. L UE weakness continues to improved. A LEOPOLDO is planned however probe not available. Currently addressing discharge planning to subacute rehab or TCU , at which time patient could have LEOPOLDO. If not patient to remain in hospital over the weekend for LEOPOLDO next week. Hypercoagulable profile indicates heterozygous factor 5 Leiden. patient remains in sinus rhythm. Consider 30 day event recorder as OP. Neurology following patient. I am not sure if the heterozygous factor V Leiden would warrant any additional therapy. Patient remains on medical therapy with aspirin, statin. Smoking cessation advised. 2. Hyperglycemia resolved, hemoglobin A1c 5.7 3. Chronic back pain Chronic methadone, Percocet as needed 4. Anxiety disorder Xanax nightly 5. RSD of right lower extremity Methadone, Percocet 6. + JAMES, + centromere B Ab, + KARLEY IgM -- nothing clinically to suggest CREST although needs OP follow up with Rheumatology Code Visit Inpatient E&M: 06972 Subs Hosp L2
[2017-09-28] MEDS: oxyCODONE 5 MG Tablet PO (09:17)
[2017-09-28] MEDS: Aspirin 81 MG TAB.CHEW PO (09:21)
[2017-09-28] MEDS: Calcium Carbonate 500 MG Tablet 1000 MG PO ×2 (10:38→21:11)
[2017-09-28] MEDS: Methadone 10 MG Tablet PO (14:49)
[2017-09-28] MEDS: Ondansetron 4 MG/2 ML Vial IV (17:42)
[2017-09-28] MEDS: ALPRAZolam 0.5 MG Tablet 1 MG PO (21:10)
[2017-09-28] MEDS: Celecoxib 200 MG Capsule PO (21:11)
[2017-09-28] MEDS: Atorvastatin Calcium 80 MG Tablet PO (21:11)
[2017-09-29] VITALS (10 sets, daily range): BP systolic 105–134; BP diastolic 37–79; PULSE 55–74; RESP 14–16; TEMP 36.6–37.1; O2SAT 97–99; BMI 35.4
[2017-09-29] MEDS: Enoxaparin 40 MG/0.4 ML Syringe SC (05:14)
[2017-09-29] MEDS: Ondansetron 4 MG/2 ML Vial IV ×2 (05:18→21:12)
--- NOTE | 2017-09-29 08:43 | PCM.PN.HOSP ---
Patient Problems: Active and Suspected Problems Hyperglycemia (Acute) Acute ischemic stroke (Acute) Subjective: Had heart burn/nausea last night -- resolved with TUMS and Zofran Objective: NAD Vitals/I&O's: Vital Signs Temp Pulse Resp BP Pulse Ox 98.1 F 59 L 16 109/57 L 98 09/29/17 05:13 09/29/17 07:06 09/29/17 05:13 09/29/17 05:13 09/29/17 05:13 Oxygen Delivery Method Room Air Weight: 212 lb 8.41 oz Body Mass Index (BMI) 35.4 Intake and Output for Last 24 Hours 09/27/17 09/28/17 09/29/17 23:59 23:59 23:59 Intake Total 500 / 500 2049 Balance 500 / 500 2049 General: Oriented x3, Cooperative Neck: No JVD Lungs: Clear to auscultation Cardiovascular: Regular rate, Regular Rhythm, Normal S1, - - monitor SB Neurological: - - stable exam Current Medications Acetaminophen (Tylenol) 650 mg PO Q6H PRN PRN PRN Reason: pain/fever Last Admin: 09/27/17 17:40 Dose: 650 mg Alprazolam (Xanax) 1 mg PO QHS [facility] Last Admin: 09/28/17 21:10 Dose: 1 mg Aspirin (Aspirin, Baby) 81 mg PO DAILY@0800 [facility] Last Admin: 09/28/17 09:21 Dose: 81 mg Atorvastatin Calcium (Lipitor) 80 mg PO QHS [facility] Last Admin: 09/28/17 21:11 Dose: 80 mg Calcium Carbonate (Tums) 1,000 mg PO Q4H PRN PRN PRN Reason: DYSPEPSIA/INDIGESTION Last Admin: 09/28/17 21:11 Dose: 1,000 mg Celecoxib (Celebrex) 200 mg PO QHS [facility] Last Admin: 09/28/17 21:11 Dose: 200 mg Enoxaparin Sodium (Lovenox) 40 mg SC DAILY@0600 [facility] Last Admin: 09/29/17 05:14 Dose: 40 mg Magnesium Hydroxide (Milk Of Magnesia) 30 ml PO DAILY PRN PRN Reason: Constipation Last Admin: 09/24/17 12:52 Dose: 30 ml Methadone HCl () 10 mg PO Q8 [facility] Last Admin: 09/29/17 05:14 Dose: Not Given Ondansetron HCl (Zofran) 4 mg IV Q6H PRN PRN PRN Reason: NAUSEA/VOMITING Last Admin: 09/29/17 05:18 Dose: 4 mg Oxycodone HCl (Oxyir) 5 mg PO TID PRN PRN Reason: PAIN Last Admin: 09/28/17 09:17 Dose: 5 mg Medical Necessity - Tobacco Use Smoking Status: Former smoker Tobacco Use: Cigarettes Assessment/Plan All Active Problems Hyperglycemia (Acute) Acute ischemic stroke (Acute) 57-year-old patient with history of right lower extremity RSD was admitted 09/19/2017 with right MCA frontotemporal CVA . Symptoms included left arm weakness, left-sided neglect, confusion. 1. Subacute right MCA ischemic stroke, frontotemporal. CTA of neck revealed no extracranial stenoses, but CTA head noted focal stenosis of the supraclinoid segment of the right ICA. TTE revealed EF 65%, no PFO, normal left atrial size. LDL was 80. A1c was 5.7. Patient is smoker. Autoimmune workup was pertinent for + JAMES, + anticentromere B, + KARLEY IgM The patient is being followed in consultation by neurology services. She has had no recurrent symptoms. L UE weakness continues to improved. A LEOPOLDO is planned however probe not available. Currently addressing discharge planning to subacute rehab or TCU, at which time patient could have LEOPOLDO. If not patient to remain in hospital over the weekend for LEOPOLDO next week. Hypercoagulable profile indicates heterozygous factor 5 Leiden. Patient remains in sinus rhythm. Consider 30 day event recorder as OP. Neurology following patient. I am not sure if the heterozygous factor V Leiden would warrant any additional therapy. Patient remains on medical therapy with aspirin, statin. Smoking cessation is advised. 2. Hyperglycemia resolved, hemoglobin A1c 5.7 3. Chronic back pain Chronic methadone, Percocet as needed 4. Anxiety disorder Xanax nightly 5. RSD of right lower extremity Methadone, Percocet 6. + JAMES, + centromere B Ab, + KARLEY IgM -- nothing clinically to suggest CREST although needs OP follow up with Rheumatology 7. GERD -- added PPI Code Visit Inpatient E&M: [id number] Subs Hosp L2
--- NOTE | 2017-09-29 08:46 | PN_ITS ---
Patient Problems: Active and Suspected Problems Hyperglycemia (Acute) Acute ischemic stroke (Acute) Subjective: Had heart burn/nausea last night -- resolved with TUMS and Zofran Objective: NAD Vitals/I&O's: Vital Signs Temp Pulse Resp BP Pulse Ox 98.1 F 59 L 16 109/57 L 98 09/29/17 05:13 09/29/17 07:06 09/29/17 05:13 09/29/17 05:13 09/29/17 05:13 Oxygen Delivery Method Room Air Weight: 212 lb 8.41 oz Body Mass Index (BMI) 35.4 Intake and Output for Last 24 Hours 09/27/17 09/28/17 09/29/17 23:59 23:59 23:59 Intake Total 500 / 500 2049 Balance 500 / 500 2049 General: Oriented x3, Cooperative Neck: No JVD Lungs: Clear to auscultation Cardiovascular: Regular rate, Regular Rhythm, Normal S1, - - monitor SB Neurological: - - stable exam Current Medications Acetaminophen (Tylenol) 650 mg PO Q6H PRN PRN PRN Reason: pain/fever Last Admin: 09/27/17 17:40 Dose: 650 mg Alprazolam (Xanax) 1 mg PO QHS [facility] Last Admin: 09/28/17 21:10 Dose: 1 mg Aspirin (Aspirin, Baby) 81 mg PO DAILY@0800 [facility] Last Admin: 09/28/17 09:21 Dose: 81 mg Atorvastatin Calcium (Lipitor) 80 mg PO QHS [facility] Last Admin: 09/28/17 21:11 Dose: 80 mg Calcium Carbonate (Tums) 1,000 mg PO Q4H PRN PRN PRN Reason: DYSPEPSIA/INDIGESTION Last Admin: 09/28/17 21:11 Dose: 1,000 mg Celecoxib (Celebrex) 200 mg PO QHS [facility] Last Admin: 09/28/17 21:11 Dose: 200 mg Enoxaparin Sodium (Lovenox) 40 mg SC DAILY@0600 [facility] Last Admin: 09/29/17 05:14 Dose: 40 mg Magnesium Hydroxide (Milk Of Magnesia) 30 ml PO DAILY PRN PRN Reason: Constipation Last Admin: 09/24/17 12:52 Dose: 30 ml Methadone HCl () 10 mg PO Q8 [facility] Last Admin: 09/29/17 05:14 Dose: Not Given Ondansetron HCl (Zofran) 4 mg IV Q6H PRN PRN PRN Reason: NAUSEA/VOMITING Last Admin: 09/29/17 05:18 Dose: 4 mg Oxycodone HCl (Oxyir) 5 mg PO TID PRN PRN Reason: PAIN Last Admin: 09/28/17 09:17 Dose: 5 mg Medical Necessity - Tobacco Use Smoking Status: Former smoker Tobacco Use: Cigarettes Assessment/Plan All Active Problems Hyperglycemia (Acute) Acute ischemic stroke (Acute) 57-year-old patient with history of right lower extremity RSD was admitted 2017 with right MCA frontotemporal CVA . Symptoms included left arm weakness, left-sided neglect, confusion. 1. Subacute right MCA ischemic stroke, frontotemporal. CTA of neck revealed no extracranial stenoses, but CTA head noted focal stenosis of the supraclinoid segment of the right ICA. TTE revealed EF 65%, no PFO, normal left atrial size. LDL was 80. A1c was 5.7. Patient is smoker. Autoimmune workup was pertinent for + JAMES, + anticentromere B, + KARLEY IgM The patient is being followed in consultation by neurology services. She has had no recurrent symptoms. L UE weakness continues to improved. A LEOPOLDO is planned however probe not available. Currently addressing discharge planning to subacute rehab or TCU , at which time patient could have LEOPOLDO. If not patient to remain in hospital over the weekend for LEOPOLDO next week. Hypercoagulable profile indicates heterozygous factor 5 Leiden. Patient remains in sinus rhythm. Consider 30 day event recorder as OP. Neurology following patient. I am not sure if the heterozygous factor V Leiden would warrant any additional therapy. Patient remains on medical therapy with aspirin, statin. Smoking cessation is advised. 2. Hyperglycemia resolved, hemoglobin A1c 5.7 3. Chronic back pain Chronic methadone, Percocet as needed 4. Anxiety disorder Xanax nightly 5. RSD of right lower extremity Methadone, Percocet 6. + JAMES, + centromere B Ab, + KARLEY IgM -- nothing clinically to suggest CREST although needs OP follow up with Rheumatology 7. GERD -- added PPI Code Visit Inpatient E&M: [id number] Subs Hosp L2
[2017-09-29] MEDS: Magnesium Hydroxide 30 ML UDC PO (09:11)
[2017-09-29] MEDS: Aspirin 81 MG TAB.CHEW PO (09:11)
[2017-09-29] MEDS: oxyCODONE 5 MG Tablet PO ×2 (09:11→21:10)
[2017-09-29] MEDS: Pantoprazole Sodium 20 MG Tablet PO (09:11)
[2017-09-29] MEDS: ALPRAZolam 0.5 MG Tablet 1 MG PO (21:11)
[2017-09-29] MEDS: Atorvastatin Calcium 80 MG Tablet PO (21:11)
[2017-09-29] MEDS: Celecoxib 200 MG Capsule PO (21:11)
[2017-09-30] VITALS (8 sets, daily range): BP systolic 103–117; BP diastolic 64–70; PULSE 52–76; RESP 14–16; TEMP 36.7–36.9; O2SAT 95–98; BMI 35.4
[2017-09-30] MEDS: oxyCODONE 5 MG Tablet PO (05:07)
[2017-09-30] MEDS: Enoxaparin 40 MG/0.4 ML Syringe SC (05:07)
[2017-09-30] MEDS: Aspirin 81 MG TAB.CHEW PO (07:38)
[2017-09-30] MEDS: Pantoprazole Sodium 20 MG Tablet PO (07:38)
[2017-09-30 13:38] LABS: Anti-Thrombin 3 AG, Immunol 94 % (72-124); Antithrombin 3 Function 99 % (75-135); Beta-2-Glycoprotein I IgG <9 (0-20); Protein C, Functional 137 % (73-180)
[2017-09-30 13:39] LABS: Beta-2-Glycoprotein I IgA <9 (0-25); Beta-2-Glycoprotein I IgM <9 (0-32)
--- NOTE | 2017-09-30 14:34 | CASEMGMT ---
Social Work Received a phone call from Reina in [facility]. Reina states she contacted pt insurance company and explained that precert has been pending for several days and is requesting a determination. Per Reina, insurance states they have 17 days to make a determination and pt case is still in que and they will eventually get to it. Met with pt and daughter in room and informed them of insurance situation as noted above. SW spoke with Dr. Villalta and Pt will likely be transferred to a tertiary facility. Per Dr. Boucher, pt can follow up with outpatient therapy and Dr. Wright prefers outpt therapy to be set up at the tertiary facility. Pt informed. No further discharge needs at this time. CLEMENCIA Garcia
[2017-09-30] MEDS: Acetaminophen 325 MG Tablet 650 MG PO (14:40)
--- NOTE | 2017-10-02 20:05 | DS.PCM_ITS ---
Discharge Date and Diagnosis Date of Admission: 09/19/17 Date of Discharge: 09/30/17 - Primary Discharge Diagnosis #1 acute/subacute right MCA infarction #2 hyperglycemia #3 reflex sympathetic dystrophy #4 anxiety disorder #5 chronic low back pain - Secondary Discharge Diagnosis Chronic Problems Chronic back pain (Chronic) Anxiety (Chronic) Reflex sympathetic dystrophy (Chronic) Hospital Course and Treatment Operations: None Procedures: 2-D Echocardiogram Summary of Care Provided: The patient is a 57 year old F seen in the emergency room at [facility] with chief complaint of headache and weakness over the past week. Workup included a negative troponin, negative chest x-ray, white blood cell count was elevated at 13.2, EKG showed normal sinus rhythm at 71. CT of the head was obtained which showed no acute hemorrhage but there was an abnormal area of attenuation in the right frontal lobe concerning for an acute or subacute infarct. Patient was unable to get an MRI initially due to a history of a spinal cord stimulator, this was removed in 2004. Patient was admitted to PCU, she was placed on aspirin and a statin, she was seen by neurology, underwent an echocardiogram, she was seen by PT and OT as well as speech therapy. It was noted that the patient could undergo an MRI and she underwent an MRI of the brain which showed an acute ischemic infarction in the right frontal parietal region with mild subacute hemorrhage transformation or lamellar necrosis. It was planned that the patient would have a LEOPOLDO performed however there was equipment malfunction and a LEOPOLDO could not be carried out, patient stayed here several days in the hopes that she could obtain a LEOPOLDO here but on 09/30/17 it became obvious that we could not guarantee a LEOPOLDO could be performed here in an expedited manner. It was then felt the most prudent course of action would be to transfer the patient to a tertiary center where she could obtain a LEOPOLDO. On 09/30/17, patient was seen and examined felt to be in stable condition for transfer to [facility] for further half-way Medications: Medications to take at Discharge ALPRAZolam [Xanax] 1 mg PO QHS 09/19/17 Celecoxib [Celebrex] 200 mg PO QHS 09/19/17 Methadone HCl [(None)] 10 mg PO Q8H 09/19/17 Oxycodone HCl/Acetaminophen [Percocet 5/325] 1 tablet PO TID PRN PRN 09/19/17 Primary Care Physician: Sammi Rowley MD [Primary Care Provider] - Disposition: Acute care Hospital Minutes spent on discharge:: 35 Patient Condition:: Stable Medical Necessity - Tobacco Use Smoking Status: Former smoker Tobacco Use: Cigarettes Meaningful Use Info Meaningful Use Diagnoses (Choose all that apply): Ischemic CVA - CVA Therapy Assessed for PT,OT and/or ST?: Yes - Ischemic Stroke Antithrombotic order at d/c?: Yes Dx of Atrial fib/flutter?: No Anticoagulant at discharge?: No Reason anticoagulant not ordered: Treatment not Indicated Statins at discharge?: Yes Primary Dx Acute Ischemic CVA?: Yes IV tPA ordered during stay?: No Reason IV t-PA not ordered: Treatment not Indicated Code Visit Inpatient E&M: [id number] Disch Hosp
== END 2017-09-30 18:08 | disposition short-term general hospital (02) | DRG 65 ==
LOC: ED 10:35 → PCU 12:29
PROVIDERS: Psychiatry & Neurology Neurology; Admitting Provider Hospitalist; Emergency Provider Emergency Medicine; Family Provider Internal Medicine; PCP Internal Medicine; Visit Provider Internal Medicine
DX: I63.511 Cerebral infarction due to unspecified occlusion or stenosis of right middle cerebral artery (principal); R41.4 Neurologic neglect syndrome; G90.521 Complex regional pain syndrome I of right lower limb; G89.29 Other chronic pain; M54.9 Dorsalgia, unspecified; R29.810 Facial weakness; G83.24 Monoplegia of upper limb affecting left nondominant side; R29.702 NIHSS score 2; Z87.891 Personal history of nicotine dependence
CPT/HCPCS: 36415; 70450; 70460; 70496; 70498; 70551; 71045; 74018; 80048; 80061; 81240; 81241; 82962; 83036; 84484; 85025; 85300; 85301; 85302; 85303; 85305; 85306; 85610; 85730; 86038; 86146; 86147; 86225; 86235; 92507; 92523; 93005; 93306; 93880; 97110; 97112; 97116; 97161; 97164; 97165; 97530; 99283; J7040; Q9957; Q9967; A4216; J2405

== ENCOUNTER → 2017-12-30 13:03 | Outpatient (CLI) | payer BC, SELFPAY ==
[2017-12-30 13:28] LABS: International Normalized Ratio 3.6
== END ==
PROVIDERS: Family Provider Internal Medicine; PCP Internal Medicine; Referring Provider Internal Medicine; Visit Provider Internal Medicine
DX: Z86.73 Personal history of transient ischemic attack (TIA), and cerebral infarction without residual deficits (principal)
CPT/HCPCS: 85610

== ENCOUNTER 2018-01-02 14:30 | Outpatient (RCR) | payer BC, SELFPAY ==
--- NOTE | 2017-10-11 14:28 | HP.OTEVAL_ITS ---
Patient's Visit Information STEPHANIE KNIGHT is a 57 year old F, referred to Occupational Therapy by LESLIE Villanueva, with a diagnosis of Ischemic CVA. Date of Evaluation: 10/11/17 Occupational Therapist: Joanna Arambula - Subjective Subjective: Arrived and noted had ischemic CVA around September 19. She was admitted to ER on September 19. Notes no time on rehab unit due to lack of insurance coverage. Noted she has had headache all time since CVA. Explained she is having issue clipping finger nails as well as increased difficulty putting hair in ponytail. Further explained today was first day tying shoes she noted in weeks. 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 - ROM Shoulder: WFL Elbow: WFL Forearm: WFL Wrist: WFL ROM Comments: She is having increased difficulty with unhooking bra. Shoulder ROM needed for tasks is WFL but limited dexterity of fingers limiting movement. Intrinsic weakness noted. - Strength Shoulder: flexion R 5/5 L 4-/5 Elbow: flexion R R 5/5 L 4-/5, ext R 5/5 L 4-/5 Wrist: flex & ext R 5/5, L 4-/5 Workers Compensation Manager: R 50, L 19 Lateral Pinch: R 14, L 7 Tripod Pinch: R 11, L 7 Tip-to-Tip Pinch: R 10, L5 Intrinsics: R 5/5, L 3+/5 Strength Comments: Increased weakness noted t/o L hand. - Sensation Thumb: R 2.83, L 2.83 Index: R 2.83 , L 2.83 Middle: R 2.83, L 3.61 Ring: R 2.83, L 3.22 Little: R 2.83 , L 2.83 Kinesthesia: Normal - Right, Abnormal - Left - Visual/Perceptual Skills Comments: Pt. notes some increased L sided neglect. Will further monitor and test. - Cognitive Skills Follows Directions: Yes Short Term Memory Impaired: Yes Cognitive Comments: Does have ST session to set up. On waitlist to get evaluation. Will be completing MoCA next session. Orientated to all date, person , and place. - Attention Attention: Normal - Nine Hole Peg Right: 23.18 s Left: 108.63 s Comments: Increased difficulty in hand manipulation and dexterity skills with L hand - In-Hand Manipulation Finger to Palm Translation: Normal - Right, Severe - Left Palm to Finger Translation: Normal - Right, Severe - Left Shift: Normal - Right, Moderate - Left Rotation: Normal - Right, Mild - Left - Stroke Specific Quality of Life Total SS-QOL Score: 117 - Goals Goal:: Stephanie to increased L online community manager to within 10 lbs of R online community manager to promote manipulation of self care items e.g. opening jars by d/c. Goal:: Stephanie to increased L hand dexterity through decreased time of 9 hole pegboard test to promote increased ability to manipulate small items within normal range of L hand by d/c. Goal:: Yany to complete sensory re-education training of L UE to promote increased perceived touch sensation to promote safety and decrease risk of injury to L UE as measurement through two point/monofilament test by d/c. Goal:: Stephanie to be (i) to return to completing all ADLs/IADLs simple cooking tasks, fastners (bra hook and buttons) as well as simple chores to promote increased (I) and ability to complete ADL/IADLs 4/5 trials 80% of the time by d/ c. 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 - Rehabilitation General Assessment: Stephanie is s/p ischemic CVA of front lobe with L sided weakness. She exhibits decreased strength and endurance for ADl/IADls. Further deficits noted in in hand and bilateral hand coordination skills. OT to address FMC, in hand manipulation skills, coordination and sensory systems to promote increased strength, endurance, and perceived sensation of L affected hand to help return to PLOF. Rehabilitation Potential: Excellent - Anticipated Interventions Anticipated Interventions: A/AAROM/PROM, Strengthening, Orthoses, Joint Protection/Energy Conservation, Ergonomic Education, Dynamic Sitting Balance, Fine Motor Coord/Jaciel, Neuro Reeducation, ADL Training, Education re assistive Equipment, Caregiver Training, Home Program - Visit Plan Frequency: 2x /Week Duration: 4-6 Weeks General Plan: OT to work on strength, FMC, in hand manipulation skills, sensory processing, VMI, left sided neglect issues as needed, ADl/IADls to promote increased (i) and reutrning to PLOf by d/c. TEXT: Thank you for the opportunity to evaluate your patient. For Medicare and Medicare HMO plans, please review the plan of care and approve it. It will need to be FAXED BACK to us at [phone] for Medicare purposes. Please let me know if there are questions or concerns regarding this plan of care. Physician Signature: Date:
--- NOTE | 2017-10-31 12:10 | HP.OTCOM ---
OT Communication Note 10/31/[address] Stroud, It has been my pleasure working with Lillian. She has been exhibiting some visual motor and perceptual concerns post CVA. She would benefit from further examination by your office. The [facility] administered the Motor-free visual perception (MVPT) test and I scored and interpreted. Scores were concerning and Lillian has noted increased visual disturbances prior to CVA with cornea scratch and post CVA. At times she appears to have a left neglect like visual disturbance but it does not elena to be consistent but both OT and PT are working with visual integration type of techniques at this time. Lillian does exhibit both memory and processing issues and ST focusing on treating as well as OT with ADls. She has scheduled an initial driving rehab appointment in a couple weeks at [facility] and safety is concern at this time. Please let me know if there is anything else that I can do to promote increased vision for Lillian. We continue to work on anchoring techniques as well as VMI to promote returning to PLOF. Sincerely, Joanna Arambula, OTR/L Contact Information
--- NOTE | 2017-11-11 13:54 | HP.PTEVAL_ITS ---
Patient's Visit Information STEPHANIE KNIGHT is a 57 year old F referred to Physical Therapy by LESLIE Villanueva with a diagnosis of CVA. Date of Evaluation: 10/11/17 Physical Therapist: Alfredo Shirley - Visit Plan Frequency: 2x /Week Duration: 4-6 Weeks Plan: Continue to progress stability, begin next session with walking on uneven surfaces. - Subjective Subjective: Pt is here today for her initial evaluation with diagnosis of CVA with L sided weakness. Pt. reports initial issues were a few weeks ago. She was becoming more and more dizziness, she was also having difficulty with driving and standing. She then started having difficulty raising her L arm. Pt. was in the hospital for 1 weeks and symptoms were resolving. Pt. continues to have increased DOWELL at times, but no changes in vision. She reports continued difficulty with walking, she believes she has a L sided neglect. Pt. is to have another CAT scan in a few weeks. She denies N/T and no issues with LLE weakness. Pt. is hopeful to get back to all work and recreational activities without limitations. - Pain R knee Pain Intensity (Out of 10): 0 - Objective POSTURE: Pt. has wide DANY in stance. Pt. appears to have a slight L lateral lean in stance. PALPATION: no pain with all palpation throughout BLEs. Pt. has no signs of edema. NEURO: Pt. has normal DTR of BLEs. no changes in sensation to light and sharp touch. ROM: Pt. has normal ROM of BLEs, tight HS bilaterally. Pt. has normal lumbar ROM, mild reduction in lumbar extension. Pt. has normal hip ROM bilaterally. MMT: RLE- 5/5 throughout, except 4+/5 hip flexion and abduction. LLE- ankle 5/5 throughout; knee- ext 4+/5, flexion 4+/5; hip- flexon 4+/5, abd 4/5, ext 4+/5. Core strength- poor+. GAIT: Pt. ambulates with out AD without LOB, but does have occassional deviation from path to L side. Pt. does not appear to have a true left sided neglect. STAIRS: Pt. is able to negotiate with reciprocal pattern, but has L sided functional weakness. - Balance Scores Functional Gait Assessment Score: 20 % Disability: 33.3400 - Goals Goal 1:: Pt. to be I with HEP. Goal Time Frame: 4-6 Weeks Goal 2:: Pt. to have increased FGA to 25/30 indicating reduced risk for falls and improved stability. Goal Time Frame: 4-6 Weeks Goal 3:: Pt. to ambulate with improved pattern without LOB for unlimited distances. Goal Time Frame: 4-6 Weeks Goal 4:: Pt. to get back to work without limitations. Goal Time Frame: 4-6 Weeks - Rehabilitation Potential Physical Therapy Diagnosis: Pt. has signs and symptoms consistent with balance and gait disturbances status post CVA. Pt. has some L sided weakness, but minimal. Her greatest difficulty at this point in time is her balance and stability. Pt. would benefit from PT to increase stability with all functional mobility in order to get back to work and recreational activies without limitations. Rehabilitation Potential: Excellent - Anticipated Interventions Patient/Client Instruction: Educate patient on: Condition, Plan of Care, Risk Factors, Benefits of Fitness Program For the Purpose of:: To reduce risk of recurrence, To improve safety, To improve health and function, To foster healthy habits, To improve decision making, To facilitate caregiver knowledge, To prevent re-injury, To improve ability to perform tasks related to life management, To improve tolerance to ADL 's Therapeutic Exercise to Include: Strength training, Power training, Endurance training, Balance training, Coordination, Gait and locomotor training, Passive ROM, Active ROM For the Purpose of:: To improve nutrient delivery to tissue, To increase oxygenation perfusion, To improve muscle performance and motor function, To improve health of tissue, To decrease soft tissue restriction, To increase flexibility/ROM, To improve balance, To improve safety with gait, To assume or resume ADL's Thank you for the opportunity to evaluate your patient. For Medicare and Medicare HMO plans, please review the plan of care and approve it. It will need to be FAXED BACK to us at [phone] for Medicare purposes. Please let me know if there are questions or concerns regarding this plan of care. Physician Signature: Date:
--- NOTE | 2017-11-20 12:07 | HP.PTREVAL_ITS ---
Asim Adams, ILDA-C, It has been my pleasure to treat STEPHANIE KNIGHT over the last 11 visits for CVA. Please see the progress note below for an update on the physical therapy plan of care! Subjective: Pt reported feeling well at time of treatment. no pain at time of treatment . Pt. reports being 95 % better overall. Pt. does report increased stability in stance and is doing all ADls without issues at home. She has not yet returned to work, but plans to in [facility] november. Objective/Function: pt completed full treatment with no adverse effects. LE: Hip flexion- 4+/5; L ankle inversion 4/5, rest is 5/5 throughout. FGA 28/30- pt. has mild difficulty with walking with eyes closes and with narrow DANY. Pt. is I with with HEP. Pt. is ambulating without issues without AD without signs of imbalance or issues. Pt. was able to complete all work simulation activies without issues. Pt. reprots no pain increase in pain with PT ro work activities. No LOB Noted. Plan Plan: Pt. to trial HEP on her own for the next 2-3 weeks to determin if she can self progress/maintain. Pt. to call PT if unable to or if she has questions. She still have OT and ST at this point in time. Goals Goal 1:: Pt. to be I with HEP. Goal Time Frame: 4-6 Weeks Goal Progress: Goal Met Goal 2:: Pt. to have increased FGA to 25/30 indicating reduced risk for falls and improved stability. Goal Time Frame: 4-6 Weeks Goal Progress: Goal Met Goal 3:: Pt. to ambulate with improved pattern without LOB for unlimited distances. Goal Time Frame: 4-6 Weeks Goal Progress: Goal Met Goal 4:: Pt. to get back to work without limitations. Goal Time Frame: 4-6 Weeks Goal Progress: Progressing Anticipated Interventions Patient/Client Instruction: Educate patient on: Condition, Plan of Care, Risk Factors, Benefits of Fitness Program For the Purpose of:: To reduce risk of recurrence, To improve safety, To improve health and function, To foster healthy habits, To improve decision making, To facilitate caregiver knowledge, To prevent re-injury, To improve ability to perform tasks related to life management, To improve tolerance to ADL's Therapeutic Exercise to Include: Strength training, Power training, Endurance training, Balance training, Coordination, Gait and locomotor training, Passive ROM, Active ROM For the Purpose of:: To improve nutrient delivery to tissue, To increase oxygenation perfusion, To improve muscle performance and motor function, To improve health of tissue, To decrease soft tissue restriction, To increase flexibility/ROM, To improve balance, To improve safety with gait, To assume or resume ADL's Please do not hesitate to contact me at [phone] by phone or if you have questions or concerns regarding this new plan of care! Sincerely, Alfredo Shirley
--- NOTE | 2017-11-26 13:15 | HP.OTCOM ---
OT Communication Note 11/26/[address] Asim Adams, PLUG CUTTER-C Lillian Moore for a total of 14 visits to date. She is s/p CVA. Lillian is waiting on [facility] to get appointment for spinal tap, angiogram, and electrocardiogram. She further has driving test set up in a couple weeks at [facility]. She has already been cleared by optometry with adequate vision but does continue to exhibit signs of L neglect. Her CVA affected vision with increased L neglect. This has significantly improved and she is aware of deficit. Additionally, she has exhibited L hand and L UE weakness with FMC deficits and cognitive related concerns for short term memory, processing, and problem solving for ADls/IADls. She is continuing ST to address cognitive related issues. For OT we have worked on visuomotor (VMI), as well as strength, ROM, finger dexterity, B hand coordination, and in hand manipulation skills needed for ADLs/IADls. She has increased brush head maker strength, is able to complete simple self-care, hygiene tasks and FMC tasks of trimming nails, pouring laundry detergent, making a bed. Further reassessment to occur next session of 11/28/17. She continues to have some difficulty with short term memory, processing, problem solving and divided attention tasks with need for 1-2x cues and then ability to self-correct with SUP. Additionally, OT has started working on sensory related concerns for L hand to promote awareness and decrease risk of injury. She noted forgetfulness has gotten progressively better. Due to her want to return to work, OT will likely extend POC 11/28/17 for another 4-6 weeks to promote working on job related tasks. Cognition remains concern for return to work, but further surgeries and doctor?s appointments might prolong return to work which has been discussed in therapy and Pt. is understanding. Sincerely, Joanna Arambula, OTR/L Contact Information
--- NOTE | 2017-11-26 13:36 | HP.OTCOM_ITS ---
OT Communication Note 11/26/[address] Asim Adams, PROPULSION SYSTEMS ENGINEER-C Lillian Moore for a total of 14 visits to date. She is s/p CVA. Lillian is waiting on [facility] to get appointment for spinal tap, angiogram, and electrocardiogram. She further has driving test set up in a couple weeks at [facility]. She has already been cleared by optometry with adequate vision but does continue to exhibit signs of L neglect. Her CVA affected vision with increased L neglect. This has significantly improved and she is aware of deficit. Additionally, she has exhibited L hand and L UE weakness with FMC deficits and cognitive related concerns for short term memory, processing, and problem solving for ADls/IADls. She is continuing ST to address cognitive related issues. For OT we have worked on visuomotor (VMI), as well as strength, ROM, finger dexterity, B hand coordination, and in hand manipulation skills needed for ADLs/IADls. She has increased rehabilitator strength, is able to complete simple self-care, hygiene tasks and FMC tasks of trimming nails, pouring laundry detergent, making a bed. Further reassessment to occur next session of 11/28/17. She continues to have some difficulty with short term memory, processing, problem solving and divided attention tasks with need for 1-2x cues and then ability to self-correct with SUP. Additionally, OT has started working on sensory related concerns for L hand to promote awareness and decrease risk of injury. She noted forgetfulness has gotten progressively better. Due to her want to return to work, OT will likely extend POC 11/28/17 for another 4-6 weeks to promote working on job related tasks. Cognition remains concern for return to work, but further surgeries and doctor?s appointments might prolong return to work which has been discussed in therapy and Pt. is understanding. Sincerely, Joanna Arambula, OTR/L Contact Information
--- NOTE | 2017-11-28 15:57 | OTREVAL_ITS ---
Asim Adams, MANAGER HOUSEKEEPING-C, It has been my pleasure to treat STEPHANIE KNIGHT over the last 15 visits for Ischemic CVA. Please see the progress note below for an update on the occupational therapy plan of care! Subjective: Arrived today. Re-eval completed today as last scheduled appointment. Noted that Goes Jan.[address] Kirk cerebravascular surge on. She start driving rehab . Objective/Function: Reassessment completed today on 11/28/17. Measurements are as follows: Strength : director instructional material 61, L 56; lateral R 15, L 10; tripod R 12, L 10; tip pinch R 10, L 8 lbs. MMT: UE. - Shoulder flexion: R 5/5 L 4/5. - Shoulder IR: R 5/5, 5/5. - Shoulder ER: R 5/5, L 5/5. - Supraspinatus: R 4+/5, L 4/5. - Bicep: R 5/5, L 5/5. - Tricep: R 5/5, L 5/5. Sensory testing: -monofilamet results: -R (1st-5th): 2.83 (normal). - L (1st-5th): 2.83 (normal). FMC and Dexterity: 9 hole pegboard: R 19.53 s, L 31.46s. Purdue Pegbaord: -R 15. -L 15. - Both- 6. -Assembly- 5 Plan Frequency: 2x /Week Duration: 4-6 Weeks Visits in this POC: 12 Plan: continue POC for 2x4-5 weeks. Have called and noted have had Stephanie sign release to talk with employer of getting specific work -related tasks to completed further FMC and dexterity training. Goals - Goals Goal:: Stephanie to increased L director instructional material to within 10 lbs of R director instructional material to promote manipulation of self care items e.g. opening jars by d/c. Goal:: Stephanie to increased L hand dexterity through decreased time of 9 hole pegboard test to promote increased ability to manipulate small items within normal range of L hand by d/c. Goal:: Stephanie to complete sensory re-education training of L UE to promote increased perceived touch sensation to promote safety and decrease risk of injury to L UE as measurement through two point/monofilament test by d/c. Goal:: Stephanie to be (i) to return to completing all ADLs/IADLs simple cooking tasks, fastners (bra hook and buttons) as well as simple chores to promote increased (I) and ability to complete ADL/IADLs 4/5 trials 80% of the time by d/c. 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 Anticipated Interventions Anticipated Interventions: A/AAROM/PROM, Strengthening, Orthoses, Joint Protection/Energy Conservation, Ergonomic Education, Dynamic Sitting Balance, Fine Motor Coord/Jaciel, Neuro Reeducation, ADL Training, Education re assistive Equipment, Caregiver Training, Home Program Please do not hesitate to contact me at [phone] by phone or if you have questions or concerns regarding this new plan of care! Sincerely, Joanna Arambula
--- NOTE | 2017-11-28 18:18 | OTREVAL_ITS ---
Asim Adams, RECRUITER MANAGER-C, It has been my pleasure to treat STEPHANIE KNIGHT over the last 15 visits for Ischemic CVA. Please see the progress note below for an update on the occupational therapy plan of care! Subjective: Arrived today. Re-eval completed today as last scheduled appointment. Noted that Goes Jan.[address] Kirk cerebrovascular surge on. She starts driving rehab . Objective/Function: Reassessment completed today on 11/28/17. Measurements are as follows: Strength: customer service engineer 61, L 56; lateral R 15, L 10; tripod R 12, L 10; tip pinch R 10, L 8 lbs. MMT: UE. - Shoulder flexion: R 5/5 L 4/5. - Shoulder IR: R 5/5, 5/5. - Shoulder ER: R 5/5, L 5/5. - Supraspinatus: R 4+/5, L 4/5. - Bicep: R 5/5, L 5/5. - Tricep: R 5/5, L 5/5. Sensory testing: -monofilament results: -R (1st-5th): 2.83 (normal). - L (1st-5th): 2.83 (normal). FMC and Dexterity: 9 hole pegboard: R 19.53 s, L 31.46s. Purdue Pegboard: -R 15. -L 15. - Both- 6. -Assembly- 5. Left neglect noted from electric installer. Able to complete scanning without issue. Has progressed in all tasks since initial evaluation. Plan Frequency: 2x /Week Duration: 4-6 Weeks Visits in this POC: 12 Plan: continue POC for 2x4-5 weeks. Stephanie has signed release to talk with employer of getting specific work -related tasks to completed further FMC and dexterity training. OT to call to see if clinic able to get some small work- related parts of Stephanie to work on during sessions. Next 4-5 weeks to focus on FMC work related tasks and continued cognitive related concerns. Goals - Goals Goal:: Stephanie to increased L customer service engineer to within 10 lbs of R customer service engineer to promote manipulation of self care items e.g. opening jars by d/c. -GOAL MEANT Goal:: Stephanie to increased L hand dexterity through increased performance on Purdue Pegboard test to promote increased ability to manipulate small items within normal range of L hand by d/c. Goal:: Stephanie to complete sensory re-education training of L UE to promote increased perceived touch sensation to promote safety and decrease risk of injury to L UE as measurement through two point/monofilament test by d/c. Goal:: Stephanie to be (i) to complete small item assembly for job like tasks 9/10 trials 90% of the time to promote returning to PLFO and ability to retrun to work. Goal:: Stephanie to be (i) to return to completing all ADLs/IADLs simple cooking tasks, fastners (bra hook and buttons) as well as simple chores to promote increased (I) and ability to complete ADL/IADLs 4/5 trials 80% of the time by d/c. 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 Anticipated Interventions Anticipated Interventions: A/AAROM/PROM, Strengthening, Orthoses, Joint Protection/Energy Conservation, Ergonomic Education, Dynamic Sitting Balance, Fine Motor Coord/Jaciel, Neuro Reeducation, ADL Training, Education re assistive Equipment, Caregiver Training, Home Program Please do not hesitate to contact me at [phone] by phone or if you have questions or concerns regarding this new plan of care! Sincerely, Joanna Arambula
--- NOTE | 2018-01-02 16:38 | HP.SP.DC ---
ST Discharge Summary - Discharged: Discharge: The Cognitive Linguistic Quick Test was re-administer and the results were as follows. Cognitive Domains. SEVERITY RATINGS. Attention WNL. Memory WNL. Executive Functions WNL. Language WNL. Visuospatial WNL. Patient stated she that things are going well at home. She struggles a little bit with balancing her checkbook but has been able to find the errors. She is now making meals and baking at home without any difficulty. Patient wnet through the driving rehabilitation program through [facility] and passed her driving test. Patient had physician visit at [facility] on . Patient is to have angioplasty on Saturday01/03/18. and physician had stated that she is not to lift or push anything for a week after that. She is going to follow up with LISA and physician to make sure her FLMA is extended until next week as she was supposed to have started on 01/04/19. Patient has met her objectives and has been discharged from speech therapy.
--- NOTE | 2018-01-02 16:53 | HP.OTREVAL ---
Asim Adams, ILDA-C, It has been my pleasure to treat STEPHANIE KNIGHT over the last 25 visits for Ischemic CVA. Please see the progress note below for an update on the occupational therapy plan of care! Subjective: Arrived and noted having follow up at [facility] for spinal tap, angiogram, and EKG and if needed a stent on . She feels about 99% back to PLOF. She noted doctor holding return to work until after results from additional medical tests are completed. Objective/Function: Completed reassessment with measurements as follows: Strength B UE: shoulder flexion: R 5/5/, L 5/5. supraspinatus: R 5/5/, L 5/5. elbow flexion: R 5/5/, L 5/5. elbow extension: R 5/5/, L 5/5. wrist extension R 5/5/, L 5/5. wrist flexion: R 5/5/, L 5/5. Orthopedic Coder: R 66, L 52. lateral pinch : R 12, L 12. tripod pinch: R 13, L 9. pincer pinch: R 9, L 9. 9 hole pegboard test: R 19.83 seconds. L 29. 15 seconds. Purdue pegboard test: right hand : - trials 1: 13. - trials 2: 15. - Trials 3: 15. total: 43. percentile: 3rd. Left hand : - trials 1: 10. - trials 2: 13. - Trials 3: 11. Total:34. percentile: 2nd. Both hands: - trials 1: 10. - trials 2: 8. - Trials 3: 9. Total: 27. percentile: below 1st. R+L+Both. - trials 1: 33. - trials 2: 36. - Trials 3: 35. total: 74. percentile: below 1st. Assembly: - trials 1: 6. - trials 2: 4. - Trials 3: 6. Total: 16. percentile: below 1st. She has progress in all tasks since initial evaluation. Plan Frequency: 1-2x /Week Duration: 3 Weeks Visits in this POC: 1-2 Plan: Medical hold. She has progressed in all measurements since initial evaluation. Progress has plateaued. She does have family h/o MS and is getting further testing regarding symptoms which includes spinal tap as well as angioplasty and additional test at [facility]. Will wait to determine the need of further therapy post results of spinal tap. She will call with results. If she is doing well post results chart will be d/c'd. Goals - Goals Goal:: Stephanie to increased L dyeing machine feeder to within 10 lbs of R dyeing machine feeder to promote manipulation of self care items e.g. opening jars by d/c. -GOAL MEANT Goal:: Stephanie to increased L hand dexterity through increased performance on Purdue Pegboard test to promote increased ability to manipulate small items within normal range of L hand by d/c. Goal:: Stephanie to complete sensory re-education training of L UE to promote increased perceived touch sensation to promote safety and decrease risk of injury to L UE as measurement through two point/monofilament test by d/c.- GOAL MEANT Goal:: Stephanie to be (i) to complete small item assembly for job like tasks 9/10 trials 90% of the time to promote returning to PLOF and ability to retrun to work. Goal:: Stephanie to be (i) to return to completing all ADLs/IADLs simple cooking tasks, fastners (bra hook and buttons) as well as simple chores to promote increased (I) and ability to complete ADL/IADLs 4/5 trials 80% of the time by d/c. 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 Anticipated Interventions Anticipated Interventions: A/AAROM/PROM, Strengthening, Orthoses, Joint Protection/Energy Conservation, Ergonomic Education, Dynamic Sitting Balance, Fine Motor Coord/Jaciel, Neuro Reeducation, ADL Training, Education re assistive Equipment, Caregiver Training, Home Program Please do not hesitate to contact me at [phone] by phone or if you have questions or concerns regarding this new plan of care! Sincerely, Joanna Arambula
--- NOTE | 2018-02-20 13:48 | HP.OTDCSUM ---
HP - OT D/C Summary It has been my pleasure to treat STEPHANIE KNIGHT under orders from LESLIE Villanueva, for the diagnosis of Ischemic CVA for a total of 25 visit(s). Please see the following information for a summary of their discharge status. - Overall Improvement % Improvement: 99 - Objective Objective/Function: Completed reassessment with measurements as follows: Strength B UE: shoulder flexion: R 5/5/, L 5/5. supraspinatus: R 5/5/, L 5/5. elbow flexion: R 5/5/, L 5/5. elbow extension: R 5/5/, L 5/5. wrist extension R 5/5/, L 5/5. wrist flexion: R 5/5/, L 5/5. Supervisor Education: R 66, L 52. lateral pinch : R 12, L 12. tripod pinch: R 13, L 9. pincer pinch: R 9, L 9. 9 hole pegboard test: R 19.83 seconds. L 29. 15 seconds. Purdue pegboard test: right hand : - trials 1: 13. - trials 2: 15. - Trials 3: 15. total: 43. percentile: 3rd. Left hand : - trials 1: 10. - trials 2: 13. - Trials 3: 11. Total:34. percentile: 2nd. Both hands: - trials 1: 10. - trials 2: 8. - Trials 3: 9. Total: 27. percentile: below 1st. R+L+Both. - trials 1: 33. - trials 2: 36. - Trials 3: 35. total: 74. percentile: below 1st. Assembly: - trials 1: 6. - trials 2: 4. - Trials 3: 6. Total: 16. percentile: below 1st. She has progress in all tasks since initial evaluation. 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 opening jars by d/c. -GOAL MEANT Goal:: Stephanie to increased L hand dexterity through increased performance on Purdue Pegboard test to promote increased ability to manipulate small items within normal range of L hand by d/c. Goal:: Stephanie to complete sensory re-education training of L UE to promote increased perceived touch sensation to promote safety and decrease risk of injury to L UE as measurement through two point/monofilament test by d/c.- GOAL MEANT Goal:: Stephanie to be (i) to complete small item assembly for job like tasks 9/10 trials 90% of the time to promote returning to PLOF and ability to retrun to work. Goal:: Stephanie to be (i) to return to completing all ADLs/IADLs simple cooking tasks, fastners (bra hook and buttons) as well as simple chores to promote increased (I) and ability to complete ADL/IADLs 4/5 trials 80% of the time by d/c. 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 - Plan Plan: Stephanie was placed on medical hold for last two months due to multiple tests needing to be completed at [facility]. She has progressed in all measurements since initial evaluation. She will be d/c'd as medical complications remain but she is hoping to return to light duty work within 2-3 weeks. - D/C Information If there are questions or concerns regarding this patient's occupational therapy, please fell free to call me at [phone]. Thank you for the referral of this patient. Sincerely, Joanna Arambula
== END 2018-01-02 19:00 | disposition home or self-care (01) ==
LOC: OT 14:30
PROVIDERS: Family Provider Internal Medicine; PCP Internal Medicine; Visit Provider Nurse Practitioner Primary Care
DX: Z86.73 Personal history of transient ischemic attack (TIA), and cerebral infarction without residual deficits (principal); R53.1 Weakness
CPT/HCPCS: 92507; 92523; 97110; 97112; 97162; 97166; 97168; 97530

== ENCOUNTER 2018-02-09 11:03 | Emergency (ER) | payer BC, SELFPAY ==
[2018-02-09 11:04] VITALS: BP 125/74; PULSE 60; RESP 15; TEMP 37.1; O2SAT 100; BMI 40.1
[2018-02-09 11:16] LABS: Bedside Glucose 71 mg/dL (70-110)
--- NOTE | 2018-02-09 11:18 | EKG12_ITS ---
Test Reason : NEURO SYMPTOMS Blood Pressure : / mmHG Vent. Rate : 053 BPM Atrial Rate : 053 BPM P-R Int : 126 ms QRS Dur : 086 ms QT Int : 416 ms P-R-T Axes : 037 032 044 degrees QTc Int : 390 ms Sinus bradycardia Otherwise normal ECG Confirmed by LINDA POWELL MD ([id number]), school photograph editor LEANDRA WALTERS ([id number]) on 02/12/2018 3:08:51 PM Referred By: WELLINGTON Confirmed By:LINDA POWELL MD
--- NOTE | 2018-02-09 11:18 | CT_ITS ---
STUDY: CT BRAIN WITHOUT CONTRAST REASON FOR EXAM: Female, 57 years old. Left facial numbness with blurred vision, history of prior infarction RADIATION DOSAGE (If Supplied By Facility): CTDIvol = ( 44.99 ) mGy, DLP = ( 812.98 ) mGycm TECHNIQUE: Transaxial CT imaging of the brain was performed without administration of intravenous contrast material. Individualized dose optimization techniques were used for this CT. COMPARISON: 09/19/2017 FINDINGS: Normal soft tissue structures. Normal calvarium. Normal size ventricles and extra-axial spaces for the patient's age. Encephalomalacia and gliosis of the anterior right frontal lobe has evolved since the prior study. Normal basal ganglia and thalami. Normal brainstem. Normal cerebellum. There is no intracranial hemorrhage. There are no findings of an acute ischemic infarction. Normal visualized paranasal sinuses. CT/Brain/Head without Contrast IMPRESSION: 1. No acute intracranial hemorrhage or mass effect. 2. Expected evolution of right anterior MCA territory infarction. Electronically Signed: Tomas Gonzalez MD at 12:18 EST , Service support ,
--- NOTE | 2018-02-09 11:29 | ED.DCSUM_ITS ---
- ER Visit Summary Date of Service: 02/09/18 Chief Complaint: Headache History of Present Illness: The patient is a 57 F with onset of headache around 930 this morning. Patient stated the pain started on the medial portion of the left eye and is now across her forehead. She has blurred vision from her left eye but her eye is not painful. She is mild light sensitivity. Patient did have an ischemic stroke in August of this year. She has no chronic deficits from this. She underwent an angiogram at [facility] that showed a blockage high in the carotid arteries. They are treating this with steroids and Bactrim. Patient was also found to have factor V Leiden is currently on Coumadin. Physical Examination: Vital signs are unremarkable. Head neck examination reveals no obvious sign of trauma. Pupils are equal and reactive. She has no meningismus. Heart is regular rate and rhythm. Lung sounds are clear. Abdomen is soft and nontender. Neuro exam is unremarkable at this time with an NIH of 0. Test Results: EKG is sinus bradycardia 53 bpm with no sign of acute ischemia. CT head shows no acute hemorrhage or mass-effect. There is expected evolution of the right anterior MCA territory stroke. CBC reveals a white count of 18.6 with normal secondary to her chronic steroids. Chemistry studies are significant for potassium 3.3. INR is therapeutic at 3.0. Emergency Department Course and Treatment: Patient was initially given Reglan, Benadryl, and IV fluids until CT scan could be reviewed. Once CT confirmed no evidence of hemorrhage, patient was given Toradol along with potassium chloride. On repeat evaluation patient states her headache was improved but returned after coughing. She points to the left maxillary and frontal sinuses. At this time we discussed inflammation along the sinus passages and air pressure in her sinuses likely causing her symptoms. She is given a dose of morphine and Zofran on repeat evaluation does feel significantly improved. Patient will use Afrin to help open the nasal passages and continue her current medication regimen. Treatment Plan: [] Disposition: Discharge Impression: Cephalgia secondary to sinus pressure, improved This note was generated with [employer] dictation software. It may contain incorrect words, spelling, and punctuation that were not noted in review of the chart casandra or to signing ED Disposition - Plan for ED Patient: Disposition: Home or Assisted Living Chief Complaint: Neuro S/Sx Instructions: ED Cephalgia Unspecified Referrals: Sammi Rowley MD [Primary Care Provider] - 3-5 Days
[2018-02-09] MEDS: 0.9% Normal Saline 1,000 ML 150 ML IV (11:32)
[2018-02-09] MEDS: Metoclopramide 10 MG/2 ML Vial IV (11:32)
[2018-02-09] MEDS: DiphenhydrAMINE 50 MG/ML Syringe 25 MG IV (11:33)
[2018-02-09 11:43] LABS: Hematocrit 42.7 % (37-47); Hemoglobin 14.2 g/dl (12.0-15.0); Mean Corp Hgb Conc 33.3 g/gl (32-36); Mean Corpuscular Hgb 29.4 pg (27.0-32.0); Mean Corpuscular Volume 88.4 fL (81-99); Mean Platelet Vol. 9.9 fl (6.2-12.0); Platelet Count 326 K/mm3 (150-450); RBC Distribution Width CV 13.5 % (11.6-14.6); RBC Distribution Width SD 44.1 fl (35.1-43.9); Red Blood Count 4.83 M/mm3 (4.2-5.4); White Blood Count 18.6 K/mm3 (4.4-11.0)
[2018-02-09 11:44] LABS: Differential Indicated MANUAL DIFF; POSITIVE COUNT YES; POSITIVE DIFFERENTIAL NO; POSITIVE MORPHOLOGY YES
[2018-02-09 11:48] LABS: Prothrombin Time (Protime)PT. 31.1 SECONDS (11.7-14.9)
[2018-02-09 11:52] LABS: Anion Gap 8 (5-15); BUN 20 mg/dL (7-18); BUN/Creat Ratio 25.6 RATIO (10-20); Calcium,Total 8.5 mg/dL (8.5-10.1); Chloride 105 mmol/L (98-107); Creatinine, Serum 0.78 mg/dL (0.55-1.02); EST Glomerular Filtration Rate 81 mL/min (>60); Est Glom Filt Rate - Afr Amer 98 mL/min (>60); Estimated Creatinine Clearance 67.41 ml/min; Glucose 91 mg/dL (74-106); Potassium 3.3 mmol/L (3.5-5.1); Sodium Level 140 mmol/L (136-145)
[2018-02-09 11:59] LABS: Lymphocyte 29 % (19-41); Monocyte 10 % (0-10); Neutrophil-Segmented 61 % (47-70); Total Cells Counted 100 (MANUAL DIFF)
[2018-02-09 12:00] LABS: Absolute Neutrophil Count 11.4 X10^3/uL (2.0-7.7); Reactive Lymphocyte 1+
[2018-02-09] MEDS: Ketorolac 30 MG/ML Syringe IV (12:48)
[2018-02-09 14:02] VITALS: BP 142/72; PULSE 62; RESP 16; O2SAT 98
[2018-02-09] MEDS: Ondansetron 4 MG/2 ML Vial IV (14:03)
[2018-02-09] MEDS: Morphine 4 MG/ML Syringe IV (14:03)
--- NOTE | 2018-02-09 14:58 | ED.DEP ---
ED Disposition - Plan for ED Patient: Disposition: Home or Assisted Living Chief Complaint: Neuro S/Sx Instructions: ED Cephalgia Unspecified Referrals: Sammi Rowley MD [Primary Care Provider] - 3-5 Days
[2018-02-09 15:22] VITALS: BP 118/76; PULSE 83; RESP 12; O2SAT 99
[2018-02-10 14:05] LABS: Pathologist Review Reviewed
--- OUTSIDE RECORDS SUMMARY | 2018-05-14 13:20 | XMS RPT_ITS ---
:1960 Author Organization OHIP Support Name Relationship Address Phone LISA Unavailable [address] + [place] [address] ALBERTO MOOREY Unavailable [address] + [place] [address] LISA Unavailable [address] + [place] [address] ALBERTO MOOREY Unavailable [address] + [place] [address] LISA Unavailable [address] + [place] [address] ALBERTO MOOREY Unavailable [address] + [place] [address] LISA Unavailable [address] + [place] [address] ALBERTO MOOREY Unavailable [address] + [place] [address] LISA Unavailable [address] + [place] [address] TERESA DAVIAN Unavailable [address] + [place] [address] Alberot Lowryy Unavailable Unavailable + LISA Unavailable [address] + [place] [address] ALBERTO MOOREY Unavailable [address] + [place] [address] LISA Unavailable [address] + [place] [address] ALBERTO MOOREY Unavailable [address] + [place] [address] LISA Unavailable [address] + [place] [address] TERESA DAVIAN Unavailable [address] + [place] [address] LISA Unavailable [address] + [place] [address] TERESA DAVIAN Unavailable [address] + [place] [address] LISA Unavailable [address] + [place] [address] ALBERTO MOOREY Unavailable [address] + [place] [address] LISA Unavailable [address] + [place] [address] ALBERTO MOOREY Unavailable [address] + [place] [address] LISA Unavailable [address] + [place] [address] ALBERTO MOOREY Unavailable [address] + [place] [address] LISA Unavailable [address] + [place] [address] ALBERTO MOOREY Unavailable [address] + [place] [address] LISA Unavailable [address] + [place] [address] ALBERTO MOOREY Unavailable [address] + [place] [address] LISA Unavailable [address] + [place] [address] ALBERTO MOOREY Unavailable [address] + [place] [address] LISA Unavailable [address] + [place] [address] ALBERTO MOOREY Unavailable [address] + [place] [address] LISA Unavailable [address] + [place] [address] DAVIAN MOORE Unavailable [address] + [place] [address] LISA Unavailable [address] + [place] [address] DAVIAN MOORE Unavailable [address] + [place] [address] LISA Unavailable [address] + [place] [address] DAVIAN MOORE Unavailable [address] + [place] [address] Care Team Providers Name Role Phone LIANTA, ANUJ Attending Unavailable BERHANE LKUE ([facility]) Attending Unavailable GANTA, ANUJ Referring Unavailable GANTA, ANUJ Referring Unavailable MASCI, JOSE Murphy Attending Unavailable BERHANE LUKE ([facility]) Referring Unavailable GANTA, ANUJ Referring Unavailable GANTA, ANUJ Referring Unavailable BERHANE LUKE ([facility]) Attending Unavailable GANTA, ANUJ Referring Unavailable BERHANE LUKE ([facility]) Referring Unavailable GANTA, ANUJ Referring Unavailable BERHANE LUKE ([facility]) Referring Unavailable DWAYNE HOLT Attending Unavailable TAMARA WADSWORTH Referring Unavailable JOE CERVANTES Attending Unavailable BERHANE LUKE ([facility]) Referring Unavailable GANTA, ANUJ Attending Unavailable GANTA, ANUJ Referring Unavailable GANTA, ANUJ Referring Unavailable GANTA, ANUJ Referring Unavailable GANTA, ANUJ Referring Unavailable DAKSHA ALEGRE Attending Unavailable GANTA, ANUJ Referring Unavailable ANNE MARIE MACDONALD Attending Unavailable DWAYNE HOLT Referring Unavailable JOSE BELTRAN Attending Unavailable JOSE BELTRAN Referring Unavailable DWAYNE HOLT Admitting Unavailable DWAYNE HOLT Attending Unavailable DWAYNE HOLT Referring Unavailable JOSE BELTRAN Referring Unavailable MASCIJOSE Referring Unavailable GANTA, ANUJ Referring Unavailable GANTA, ANUJ Referring Unavailable MASCIJOSE Referring Unavailable WILL, JAIME Admitting Unavailable WILL, JAIME Attending Unavailable OLIVIA WHITLEY Referring Unavailable WILL, JAIME Referring Unavailable WILL, JAIME Referring Unavailable WILL, JAIME Referring Unavailable MASCI, JOSE Murphy Referring Unavailable HAJJ DAKSHA KRISHNAMURTHY Referring Unavailable MASCI, JOSE Murphy Referring Unavailable GANTA, ANUJ Attending Unavailable YANY WHEAT (HATCH TENDER) Referring Unavailable GANTA, ANUJ Referring Unavailable GANTA, ANUJ Referring Unavailable GANTA, ANUJ Attending Unavailable GANTA, ANUJ Referring Unavailable GANTA, ANUJ Referring Unavailable [facility] Primary Care Unavailable Ashelfah, Ghasem Admitting Unavailable Citlaly, Otis Consulting Unavailable Petar Villalta Attending Unavailable [facility], [facility] Primary Care Unavailable Olivia Whitley Attending Unavailable [facility], [facility] Primary Care Unavailable Olivia Whitley Attending Unavailable [facility], Anuj Primary Care Unavailable Bernardo Barton Attending Unavailable Ashelfah, Ghasem Admitting Unavailable Ashelfah, Ghasem Attending Unavailable [facility] Primary Care Unavailable Ashelfah, Ghasem Consulting Unavailable Ashelfah, Ghasem Admitting Unavailable Ashelfah, Ghasem Attending Unavailable [facility] Primary Care Unavailable Citlaly, Otis Consulting Unavailable Ashelfah, Ghasem Consulting Unavailable Ashelfah, Ghasem Admitting Unavailable Ashelfah, Ghasem Attending Unavailable [facility], Anuj Primary Care Unavailable Citlaly, Otis Consulting Unavailable Ashelfah, Ghasem Consulting Unavailable Ashelfah, Ghasem Admitting Unavailable Ashelfah, Ghasem Attending Unavailable [facility] Primary Care Unavailable Citlaly, Otis Consulting Unavailable Ashelfah, Ghasem Consulting Unavailable Ashelfah, Ghasem Admitting Unavailable Ashelfah, Ghasem Attending Unavailable [facility] Primary Care Unavailable Otis Boucher Consulting Unavailable Ashelfah, Ghasem Consulting Unavailable Ashelfah, Ghasem Admitting Unavailable Ashelfah, Ghasem Attending Unavailable [facility], Anuj Primary Care Unavailable Citlaly Otis Consulting Unavailable Ashelfah, Ghasem Consulting Unavailable Ashelfah, Ghasem Admitting Unavailable Ashelfah, Ghasem Attending Unavailable [facility], [facility] Primary Care Unavailable Citlaly, Otis Consulting Unavailable Ashelfah, Ghasem Consulting Unavailable Ashelfah, Ghasem Admitting Unavailable Isak Leblanc Attending Unavailable [facility] Primary Care Unavailable Otis Boucher Consulting Unavailable Isak Leblanc Consulting Unavailable Ashelfah, Ghasem Admitting Unavailable Isak Leblanc Attending Unavailable Ganta, Anuj Primary Care Unavailable Otis Boucher Consulting Unavailable Isak Leblanc Consulting Unavailable Ashelfah, Ghasem Admitting Unavailable Ganta, Anuj Primary Care Unavailable Otis Boucher Consulting Unavailable Trisha Vail Attending Unavailable Eliazar, Cande Consulting Unavailable Ashelfah, Ghasem Admitting Unavailable Ganta, Anuj Primary Care Unavailable Citlaly, Otis Consulting Unavailable Trisha Vail Attending Unavailable Eliazar, Cande Consulting Unavailable Ashelfah, Ghasem Admitting Unavailable Ambar, Petar Attending Unavailable Ganta, Anuj Primary Care Unavailable Otis Boucher Consulting Unavailable Tereletsmayda, Petar Consulting Unavailable Berhane Luke Attending Unavailable Ganta, Anuj Primary Care Unavailable Berhane Luke Referring Unavailable Jose Lopez Attending Unavailable Ashelfah, Ghasem Referring Unavailable Ganta, Anuj Attending Unavailable Ganta, Anuj Referring Unavailable Ganta, Anuj Primary Care Unavailable PROVIDER, UNKNOWN Referring Unavailable UNKNOWN, PROVIDER Primary Care Unavailable MAISHA ROLON Attending Unavailable Adama Diallo Attending Unavailable Shira Sparks Attending Unavailable Ganta, Anuj Primary Care Unavailable Shira Sparks Attending Unavailable Erin Raymundo Attending Unavailable Ganta, Anuj Primary Care Unavailable Shira Sparks Attending Unavailable Adama Diallo Attending Unavailable PROBLEMS PROBLEMS DATE TYPE CONDITION / CODE ATTENDING STATUS SOURCE 03/06/2018 Active Viral infection, NA Active [facility] unspecified / [facility] B34.9(ICD-10) [place] Repository 03/06/2018 Active Other muscle spasm NA Active [facility] / M62.838(ICD-10) [facility] [place] Rep[facility] 03/06/2018 Active Wheezing / NA Active [facility] R06.2(ICD-10) [facility] [place] Rep[facility] 02/20/2018 Active Cerebral arteritis, NA Active [facility] not elsewhere [facility] classified / [place] I67.7(ICD-10) Repository 02/20/2018 Active Generalized NA Active [facility] enlarged lymph [facility] nodes / [place] R59.1(ICD-10) Repository 02/20/2018 Active Other intermodal customer service NA Active [facility] (current) drug [facility] therapy / [place] Z79.899(ICD-10) Repository 10/11/2017 Active Other specified NA Active [facility] abnormal [facility] immunological [place] findings in serum / Repository R76.8(ICD-10) 01/03/2018 Active Occlusion and DWAYNE HOLT Active [facility] stenosis of right [facility] carotid artery / [place] I65.21(ICD-10) Repository 01/03/2018 Active Arteritis, DWAYNE HOLT Active [place] unspecified / [facility] I77.6(ICD-10) [place] Rep[facility] 01/02/2018 Unknown Z86.73 - Personal Berhane Luke Active [place] history of [facility] attack (TIA), and Repository cerebral infarction without residual deficits / Z86.73(ICD-10) 01/01/2018 Active Unspecified NA Active [facility] disorder of [facility] circulatory system [place] / I99.9(ICD-10) Repository 01/01/2018 Active Encounter for NA Active [facility] examination for [facility] normal comparison [place] and control in Repository clinical research program / Z00.6(ICD-10) 11/27/2017 Active Encounter for ANUJ HANSON Active [facility] screening mammogram [facility] for malignant [place] neoplasm of breast Repository / Z12.31(ICD-10) 11/27/2017 Active Cerebral aneurysm, ANUJ HANSON Active [facility] nonruptured / [facility] I67.1(ICD-10) [place] Repository 11/27/2017 Active Personal history of ANUJ HANSON Active [facility] transient ischemic [facility] attack (TIA), and [place] cerebral infarction Repository without residual deficits / Z86.73(ICD-10) 11/27/2017 Active Encounter for ANUJ HANSON Active [facility] screening for [facility] malignant neoplasm [place] of colon / Repository Z12.11(ICD-10) 10/11/2017 Active 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 / [facility] D68.51(ICD-10) [place] Repository 10/02/2017 Active Cerebral NA Active [facility] infarction, [facility] unspecified / [place] I63.9(ICD-10) Repository 10/10/2017 Active Encounter for NA Active [facility] general adult [facility] medical examination [place] without abnormal Repository findings / Z00.00(ICD-10) 09/30/2017 Admitting Cerebral ОЛЬГА, Active [facility] Diagnosis infarction, [facility] unspecified / Repository I63.9(ICD-10) 09/30/2017 Admitting Activated protein C [facility]А, [facility] D68.51(ICD-10) Repository 09/30/2017 Admitting 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, [facility]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 / G90.529(ICD-10) 09/30/2017 Admitting Personal history of ОЛЬГА Active [facility] nicotine dependence [facility] / Z87.891(ICD-10) Repository 09/30/2017 Admitting longterm (current) ОЛЬГА Active [facility] use of aspirin / [facility] Z79.82(ICD-10) Repository 09/30/2017 Admitting Anxiety disorder, ОЛЬГА Active [facility] unspecified / [facility] F41.9(ICD-10) Repository 09/30/2017 Admitting Dorsalgia, ОЛЬГА Active [facility] unspecified / [facility] M54.9(ICD-10) Repository 09/30/2017 Admitting Other chronic pain [facility] Diagnosis / G89.29(ICD-10) [facility] Repository 09/30/2017 Admitting Essential (primary) [facility] Diagnosis hypertension / [facility] I10(ICD-10) Repository 09/30/2017 Admitting Hyperlipidemia, [facility] Diagnosis unspecified / [facility] E78.5(ICD-10) Repository 09/30/2017 Admitting Personal history of [facility] Diagnosis other venous [facility] thrombosis and Repository embolism / Z86.718(ICD-10) 09/30/2017 Admitting Obesity, [facility] Diagnosis unspecified / [facility] E66.9(ICD-10) Repository 09/30/2017 Admitting Body mass index [facility] Diagnosis (BMI) 34.0-34.9, [facility] adult / Repository Z68.34(ICD-10) 07/24/2017 Active Unknown / ANUJ HANSON Active [facility] UNK(Unknown) [facility] Repository 06/21/2017 Admitting Unknown / Imani Active [facility] diagnosis UNK(Unknown) [facility] Repository PROCEDURES PROCEDURES No Procedure Records FoundRESULTS RESULTS PROGRESS Observed: 03/14/2018 Status: COMPLETED Source: [facility] 1:30 PM [facility] REPOSITORY HNO ID: [id number] Author: Jose Beltran Service: (none) Author Type: Physician Type: Progress Notes Filed: 03/14/2018 4:34 PM Note Text: Agree with plan as outlined below. Jose Beltran, DO PROGRESS Observed: 03/14/2018 Status: COMPLETED Source: [facility] 11:44 AM [facility] REPOSITORY HNO ID: [id number] Author: Arlene Pacheco RN Service: (none) Author Type: (none) Type: Progress Notes Filed: 03/14/2018 11:45 AM Note Text: patient had inr completed at [facility] patients inr is 2.0 (patients inr range is 2.0-3.0) patient is currently taking 3mg daily patients last dose change was on 03/06/18 due to a high level of 4.0 (dose at that time was 4mg daily) patient has had no changes in medication except for coumadin and no uninstructed missed doses and no change in diet Advised patient to continue on the same dose(s) and that they would only be contacted regarding dosage and follow up instructions after review with provider, if a change is needed. Written instructions given and patient verbalized understanding. Presently scheduled in 2 weeks (03/28/18) for follow up INR. PROGRESS Observed: 03/14/2018 Status: COMPLETED Source: [facility] 8:31 AM [facility] REPOSITORY HNO ID: [id number] Author: Anuj Hanson Service: (none) Author Type: Physician Type: Progress Notes Filed: 03/18/2018 10:32 AM Note Text: Reason for Visit Patient presents with: Established Patient: 3 month follow up Stephanie Moore is a 58 year old female who presents here today for Above Complaints.. Health Maintenance DTAP,TDAP,TD(1 - Tdap) HEPATITIS C SCREENING HPI Patient had severe gastritis/ reflux from the prednisone, which presented as a cough, hacking, and disruptive, for which I gave her protonix, and she feels much much better today. prilosec and pepcid did not help her much. Today she notes having felt good after a very long time. Last night she was up again coughing though. Regards work- she is going to see on the and he will decide if she can work. Patient Has severe anxiety and depression, she is tremulous all the time, and takes benzos for it but recently she has understood the risk with benzos and decided she does not want to be on them and wants to taper off, we discussed that tapering off should be done slowly , she also gradually wants to get off the methadone Asked her to increase the zoloft to 50 mgs today and take the buspar 5 mgs 3 times a day. Will be off the prednisone next month, she has a question regarding cell cept, I wrote to Dr Daksha Bowers and confirmed that she can take up to 3 tablets 2 times a day. No problem-specific Assessment AND Plan notes found for this encounter. PAST MEDICAL HISTORY Diagnosis Date - DVT (deep venous thrombosis) ([facility]) 2009 - Dysthymic disorder Depression (non-psychotic) - Reflex sympathetic dystrophy of the lower limb PAST SURGICAL HISTORY Procedure Laterality Date - DELIVERY ONLY X3 , low cervical - DANDC, DIAG AND/OR THERAPEUTIC Dilation AND curettage - KNEE SCOPE,DIAGNOSTIC 1996,1999 Arthroscopy, knee right X 2 - LAP CHOLECYSTECT/CHOLANGIOGRAPHY - PAST SURGICAL HISTORY OF 2004 removal spinal cord stimulator - PAST SURGICAL HISTORY OF right foot tendon release, - PAST SURGICAL HISTORY OF 07/2014 Left wrist, first dorsal compartment release - PAST SURGICAL HISTORY OF plantar fascitis - REPAIR INTERCARP/CARP-METACARP JT Left 06/29/2016 Left thumb CMC arthroplasty with ligament reconstruction and tendon interposition - REVISE MEDIAN N/CARPAL TUNNEL SURG Carpal tunnel decomp bilateral - S SPINAL CORD STIMULATOR, 1999 - TOTAL ABDOM HYSTERECTOMY Hysterectomy, IMTIAZ FAMILY HISTORY Problem Relation Age of Onset - Cancer Mother lung/brain/pancreatic - Hypertension Father - Cancer Father Colon - Arthritis Father - Heart Sister no details MVP - Arthritis Brother - Stroke Paternal Grandfather - Multiple Sclerosis Sister - No Known Problems Brother Social History Substance Use Topics - Smoking status: Former Smoker Packs/day: 1.00 Years: 7.00 Types: Cigarettes Quit date: 01/06/1998 - Smokeless tobacco: Never Used - Alcohol use No Past medical history, appointments, medications, allergies reviewed. Pertinent Lab/Diagnostic Studies are reviewed and discussed today Current Outpatient Prescriptions: - pantoprazole DR (PROTONIX) 20 mg tablet - busPIRone (BUSPAR) 5 mg tablet - lidocaine (LIDODERM) 5 % - lidocaine-prilocaine (EMLA) cream - albuterol HFA (PROVENTIL HFA, VENTOLIN HFA) 90 mcg/actuation inhaler - sertraline (ZOLOFT) 50 mg tablet - warfarin (COUMADIN) 2 mg tablet - brinzolamide-brimonidine (SIMBRINZA) 1%-0.2 % Ophth Susp - Besifloxacin (BESIVANCE) 0.6 % drps - bimatoprost (LUMIGAN) 0.01 % drop ophthalmic drops - prednisoLONE acetate (PRED FORTE, ECONOPRED PLUS) 1 % ophthalmic suspension - timolol maleate (TIMOPTIC) 0.5 % ophthalmic solution - predniSONE (DELTASONE) 20 mg tablet - mycophenolate Mofetil (CELLCEPT) 500 mg tablet - sulfamethoxazole-trimethoprim (BACTRIM DS) 800-160 mg per tablet - famotidine (PEPCID AC) 20 mg tablet - aspirin (ZACK CHEWABLE ASPIRIN) 81 mg chewable tablet - atorvastatin (LIPITOR) 40 mg tablet - ALPRAZolam (XANAX) 1 mg tablet - methadone 10 mg tablet - oxyCODONE-acetaminophen (PERCOCET) 5-325 mg tablet Review of Systems CONSTITUTIONAL: No fevers, chills night sweats, unintended weight loss CARDIOVASCULAR: No chest pain, dyspnea, palpitations, orthopnea, PND, ankle edema. PULM: No dyspnea, unexplained cough. GI: No dysphagia/odynophagia, problematic reflux, constipation, diarrhea, changes in stool habits, hematochezia, melena. : No new urinary complaints, including dysuria, gross hematuria or pyuria. NEURO: No new balance problems, peripheral weakness/paresthesias or numbness of concern. Physical Exam BP 134/64 (BP Site: Left Arm, BP Position: Sitting, BP Cuff Size: Large Adult) Pulse 69 Resp 12 Ht 162.6 cm (5' 4) Wt 105.2 kg (232 lb) SpO2 96% BMI 39.82 kg/m? General appearance: Well appearing, alert, in no acute distress, well nourished. Skin: Skin color, texture, turgor normal, no suspicious rashes or lesions Head: Normocephalic, no masses, lesions, tenderness or abnormalities Eyes: Anicteric sclera. Pupils are equally round and reactive to light. Extraocular movements are intact. Lungs: Lungs clear to auscultation. No wheezing, rhonchi, rales Heart: RRR without murmur, gallop, or rubs. Extremities: No deformities, edema, skin discoloration, clubbing or cyanosis. Good capillary refill. ASSESSMENT/PLAN: 1. Gastric reflux - ICD9: 530.81, ICD10: K21.9 (primary diagnosis) - Discussed lifestyle modifications including losing weight, limiting caffeine, no meals three hours before sleep and head of bed elevation 2. Ischemic stroke of frontal lobe (HCC) - ICD9: 434.91, ICD10: I63.9 3. Vasculitis, MITTEN SEWER (HCC) - ICD9: 447.6, ICD10: I77.6 Ok to increased the cellcept 3 tablets 2 times a day as per Dr Tommy Krishnamurthy 4. Anxiety and depression - ICD9: 300.00, 311, ICD10: F41.9, F32.9 See hpi ANUJ HANSON MD CNOV Observed: 03/14/2018 Status: COMPLETED Source: [facility] 8:00 AM [facility] REPOSITORY Office Visit (INTMWS) STEPHANIE MOORE ([id number]) 1960 F Date Time Provider Department 03/14/18 8:00 AM ANUJ HANSON During your visit today, we recorded the following information about you: Pulse Respiration Blood pressure Weight 69/minute 12/minute 134/64 105.2 kg Height 1.626 m ANUJ HANSON MD 03/18/2018 10:32 AM Signed Reason for Visit Patient presents with: Established Patient: 3 month follow up Stephanie Dayanna Bauerenio is a 58 year old female who presents here today for Above Complaints.. Health Maintenance DTAP,TDAP,TD(1 - Tdap) HEPATITIS C SCREENING HPI Patient had severe gastritis/ reflux from the prednisone, which presented as a cough, hacking, and disruptive, for which I gave her protonix, and she feels much much better today. prilosec and pepcid did not help her much. Today she notes having felt good after a very long time. Last night she was up again coughing though. Regards work- she is going to see on the and he will decide if she can work. Patient Has severe anxiety and depression, she is tremulous all the time, and takes benzos for it but recently she has understood the risk with benzos and decided she does not want to be on them and wants to taper off, we discussed that tapering off should be done slowly , she also gradually wants to get off the methadone Asked her to increase the zoloft to 50 mgs today and take the buspar 5 mgs 3 times a day. Will be off the prednisone next month, she has a question regarding cell cept, I wrote to Dr Daksha Bowers and confirmed that she can take up to 3 tablets 2 times a day. No problem-specific Assessment AND Plan notes found for this encounter. PAST MEDICAL HISTORY Diagnosis Date - DVT (deep venous thrombosis) (HCC) 2009 - Dysthymic disorder Depression (non-psychotic) - Reflex sympathetic dystrophy of the lower limb PAST SURGICAL HISTORY Procedure Laterality Date - DELIVERY ONLY X3 , low cervical - DANDC, DIAG AND/OR THERAPEUTIC Dilation AND curettage - KNEE SCOPE,DIAGNOSTIC 1996,1999 Arthroscopy, knee right X 2 - LAP CHOLECYSTECT/CHOLANGIOGRAPHY - PAST SURGICAL HISTORY OF 2004 removal spinal cord stimulator - PAST SURGICAL HISTORY OF right foot tendon release, - PAST SURGICAL HISTORY OF 07/2014 Left wrist, first dorsal compartment release - PAST SURGICAL HISTORY OF plantar fascitis - REPAIR INTERCARP/CARP-METACARP JT Left 06/29/2016 Left thumb CMC arthroplasty with ligament reconstruction and tendon interposition - REVISE MEDIAN N/CARPAL TUNNEL SURG Carpal tunnel decomp bilateral - S SPINAL CORD STIMULATOR, 1999 - TOTAL ABDOM HYSTERECTOMY Hysterectomy, IMTIAZ FAMILY HISTORY Problem Relation Age of Onset - Cancer Mother lung/brain/pancreatic - Hypertension Father - Cancer Father Colon - Arthritis Father - Heart Sister no details MVP - Arthritis Brother - Stroke Paternal Grandfather - Multiple Sclerosis Sister - No Known Problems Brother Social History Substance Use Topics - Smoking status: Former Smoker Packs/day: 1.00 Years: 7.00 Types: Cigarettes Quit date: 01/06/1998 - Smokeless tobacco: Never Used - Alcohol use No Past medical history, appointments, medications, allergies reviewed. Pertinent Lab/Diagnostic Studies are reviewed and discussed today Current Outpatient Prescriptions: - pantoprazole DR (PROTONIX) 20 mg tablet - busPIRone (BUSPAR) 5 mg tablet - lidocaine (LIDODERM) 5 % - lidocaine-prilocaine (EMLA) cream - albuterol HFA (PROVENTIL HFA, VENTOLIN HFA) 90 mcg/actuation inhaler - sertraline (ZOLOFT) 50 mg tablet - warfarin (COUMADIN) 2 mg tablet - brinzolamide-brimonidine (SIMBRINZA) 1%-0.2 % Ophth Susp - Besifloxacin (BESIVANCE) 0.6 % drps - bimatoprost (LUMIGAN) 0.01 % drop ophthalmic drops - prednisoLONE acetate (PRED FORTE, ECONOPRED PLUS) 1 % ophthalmic suspension - timolol maleate (TIMOPTIC) 0.5 % ophthalmic solution - predniSONE (DELTASONE) 20 mg tablet - mycophenolate Mofetil (CELLCEPT) 500 mg tablet - sulfamethoxazole-trimethoprim (BACTRIM DS) 800-160 mg per tablet - famotidine (PEPCID AC) 20 mg tablet - aspirin (ZACK CHEWABLE ASPIRIN) 81 mg chewable tablet - atorvastatin (LIPITOR) 40 mg tablet - ALPRAZolam (XANAX) 1 mg tablet - methadone 10 mg tablet - oxyCODONE-acetaminophen (PERCOCET) 5-325 mg tablet Review of Systems CONSTITUTIONAL: No fevers, chills night sweats, unintended weight loss CARDIOVASCULAR: No chest pain, dyspnea, palpitations, orthopnea, PND, ankle edema. PULM: No dyspnea, unexplained cough. GI: No dysphagia/odynophagia, problematic reflux, constipation, diarrhea, changes in stool habits, hematochezia, melena. : No new urinary complaints, including dysuria, gross hematuria or pyuria. NEURO: No new balance problems, peripheral weakness/paresthesias or numbness of concern. Physical Exam BP 134/64 (BP Site: Left Arm, BP Position: Sitting, BP Cuff Size: Large Adult) Pulse 69 Resp 12 Ht 162.6 cm (5' 4) Wt 105.2 kg (232 lb) SpO2 96% BMI 39.82 kg/m? General appearance: Well appearing, alert, in no acute distress, well nourished. Skin: Skin color, texture, turgor normal, no suspicious rashes or lesions Head: Normocephalic, no masses, lesions, tenderness or abnormalities Eyes: Anicteric sclera. Pupils are equally round and reactive to light. Extraocular movements are intact. Lungs: Lungs clear to auscultation. No wheezing, rhonchi, rales Heart: RRR without murmur, gallop, or rubs. Extremities: No deformities, edema, skin discoloration, clubbing or cyanosis. Good capillary refill. ASSESSMENT/PLAN: 1. Gastric reflux - ICD9: 530.81, ICD10: K21.9 (primary diagnosis) - Discussed lifestyle modifications including losing weight, limiting caffeine, no meals three hours before sleep and head of bed elevation 2. Ischemic stroke of frontal lobe (HCC) - ICD9: 434.91, ICD10: I63.9 3. Vasculitis, MITTEN SEWER (HCC) - ICD9: 447.6, ICD10: I77.6 Ok to increased the cellcept 3 tablets 2 times a day as per Dr Tommy Krishnamurthy 4. Anxiety and depression - ICD9: 300.00, 311, ICD10: F41.9, F32.9 See hpi MD ANUJ TATE MD 03/14/2018 8:56 AM Signed An Overview of Anxiety Disorders What is an anxiety disorder? Anxiety is a normal human emotion. Many people feel anxious, or nervous, when faced with a problem at work, or before taking a test or making an important decision. Anxiety disorders, however, are different. They can cause such distress that it interferes with a person's ability to lead a normal life. An anxiety disorder is a serious mental illness. People with anxiety disorders respond to certain things or situations with fear and dread, as well as physical signs of anxiety such as a pounding heart and sweating. For people with anxiety disorders, worry and fear are constant and overwhelming, and can be crippling. An anxiety disorder is diagnosed if the person's response is not appropriate for the situation, if the person cannot control the response or if the anxiety interferes with normal functioning. Anxiety disorders can get worse if not treated; however, effective treatments are available. What are the types of anxiety disorders? There are several recognized anxiety disorders, including the following: Panic disorder People with this disorder have feelings of terror that strike suddenly and repeatedly with no warning. Other symptoms of a panic attack include sweating, chest pain, palpitations (unpleasant sensations of irregular heartbeats) and a feeling of choking, which might make the person feel like he or she is having a heart attack or going crazy. Obsessive-compulsive disorder (OCD) People with OCD are plagued by constant thoughts or fears that cause them to perform certain rituals or routines. The disturbing thoughts are called obsessions, and the rituals are called compulsions. An example is a person with an unreasonable fear of germs who constantly washes his or her hands. Post-traumatic stress disorder (PTSD) PTSD is a condition that can develop following a traumatic and/or terrifying event, such as a sexual or physical assault, the unexpected of a loved one, or a natural disaster. People with PTSD often have lasting and frightening thoughts and memories of the event, and tend to be emotionally numb. Social anxiety disorder Also called social phobia, social anxiety disorder involves overwhelming worry and self-consciousness about everyday social situations. The worry often centers on a fear of being judged by others, or behaving in a way that might cause embarrassment or lead to ridicule. Specific phobias A specific phobia is an intense fear of a specific object or situation, such as snakes, heights or flying. The level of fear usually is inappropriate to the situation and might cause the person to avoid common, everyday situations. Generalized anxiety disorder This disorder involves excessive, unrealistic worry and tension, even if there is little or nothing to provoke the anxiety. What are the symptoms of an anxiety disorder? Symptoms vary depending on the type of anxiety disorder, but general symptoms of anxiety include: ? Feelings of panic, fear and uneasiness ? Uncontrollable, obsessive thoughts ? Repeated thoughts or flashbacks of traumatic experiences ? Nightmares ? Ritualistic behaviors, such as repeated hand washing ? Problems sleeping ? Cold or sweaty hands ? Shortness of breath ? Palpitations ? An inability to be still and calm ? Dry mouth ? Numbness or tingling in the hands or feet ? Nausea ? Muscle tension What causes anxiety disorders? The exact cause of anxiety disorders is not known; but anxiety disorders?like other forms of mental illness?are not the result of personal weakness, a character flaw or poor upbringing. As scientists continue their research on mental illness, it is becoming clear that many of these disorders are caused by a combination of factors, including biology and environmental stresses. Like certain illnesses, such as diabetes, anxiety disorders might be caused by chemical imbalances in the body. Studies have shown that severe or long-lasting stress can change the balance of chemicals in the brain that control mood. Studies also have shown that anxiety disorders run in families, which means that they can be inherited from one or both parents, like hair or eye color. In addition, certain environmental factors?such as a trauma or significant event?might trigger an anxiety disorder in people who have an inherited susceptibility to developing the disorder. How common are anxiety disorders? Anxiety disorders affect about 40 million adult Americans.They are the most common mental illnesses in the [place] Most anxiety disorders begin in childhood, adolescence and early adulthood. They occur more often in women than in men. How are anxiety disorders diagnosed? If symptoms are present, the doctor will begin an evaluation by performing a complete medical history and physical examination. Although there are no laboratory tests to specifically diagnose anxiety disorders, the doctor might use various diagnostic tests to rule out physical illness as the cause of the symptoms. If no physical illness is found, the person might be referred to a psychiatrist or psychologist, mental health professionals who are specially trained to diagnose and treat mental illnesses. Psychiatrists and psychologists use specially designed interview and assessment tools to evaluate a person for an anxiety disorder. The doctor bases his or her diagnosis on the patient's report of the intensity and duration of symptoms?including any problems with daily functioning caused by the symptoms?and the doctor's observation of the patient's attitude and behavior. The doctor then determines if the patient's symptoms and degree of dysfunction indicate a specific anxiety disorder. The standard reference manual used for the diagnosis of recognized mental illnesses in the [place] is the Diagnostic and Statistical Manual of Mental Disorders (DSM-5), published by the [place] [employer]. How are anxiety disorders treated? Anxiety disorders are real disorders that require treatment. Recovery is not simply a matter of will and self-discipline. Fortunately, much progress has been made in the last two decades in the treatment of people with mental illnesses. Although the exact treatment approach depends on the type of disorder, one or a combination of the following therapies might be used for most anxiety disorders: Medication Medicines used to reduce the symptoms of anxiety disorders include antidepressants and anxiety-reducing medications. Psychotherapy Psychotherapy (a type of counseling) addresses the emotional response to mental illness. It is a process in which trained mental health professionals help people by talking through strategies for understanding and dealing with their disorder. Cognitive-behavioral therapy People suffering from anxiety disorders often participate in this type of therapy in which the person learns to recognize and change thought patterns and behaviors that lead to troublesome feelings. What is the outlook for people with anxiety disorders? Early diagnosis and treatment can limit the problems caused by an anxiety disorder and improve the outlook. Unfortunately, many anxiety disorders are not recognized and, as a result, not treated. Can anxiety disorders be prevented? Anxiety disorders cannot be prevented; however, there are some things you can do to control or decrease symptoms: ? Stop or reduce your consumption of products that contain caffeine, such as coffee, tea, cola and chocolate. ? Ask your doctor or pharmacist before taking any [id number] medicines or herbal remedies. Many contain chemicals that can increase anxiety symptoms. ? Exercise daily and eat a healthy, balanced diet. ? Seek counseling and support after a traumatic or disturbing experience. Referring Provider: ANUJ HANSON [[id number]] Allergies As of Date: 03/14/2018 Noted Allergy Reaction OPIOIDS - MORPHINE ANALOGUES 08/29/2000 Comments: vicodin PENTAZOCINE 08/29/2000 Comments: tamrawin PROPOXYPHENE 08/29/2000 Comments: darvacet steri strips and paper tape [Othe*12/30/2006 TALACEN (PENTAZOCINE-ACETAMINOPHE*08/20/2005 1 - Mental Status Change Date Reviewed: 03/14/2018 Reviewed by: Adele Dawn LPN - Fully Assessed Reason for Visit: Established Patient [175] Cmt: 3 month follow up Primary Visit Diagnosis:Gastric reflux [K21.9] Other Visit Diagnoses:Ischemic stroke of frontal lobe ([facility]) [I63.9] Vasculitis, MITTEN SEWER (HCC) [I77.6] Anxiety and depression [F41.9, F32.9] Prescriptions as of 03/14/2018 Sig: PANTOPRAZOLE 20 MG TABLET,DEL* Take 1 tablet by mouth twice * BUSPIRONE 5 MG TABLET Take 1.5 tablets by mouth thr* LIDOCAINE 5 % TOPICAL PATCH APPLY ONE PATCH TOPICALLY TO * LIDOCAINE-PRILOCAINE 2.5 %-2.* ALBUTEROL SULFATE HFA 90 MCG/* Inhale 2 Puffs as instructed * SERTRALINE 50 MG TABLET Half a tablet daily for 2 wee* WARFARIN 2 MG TABLET Take 2 tablets by mouth daily* BRINZOLAMIDE 1 %-BRIMONIDINE * Use in the left eye three domingo* BESIFLOXACIN 0.6 % EYE DROPS,* Use 1 Drop in the left eye th* BIMATOPROST 0.01 % EYE DROPS Use 1 Drop in the left eye da* PREDNISOLONE ACETATE 1 % EYE * 1 Drop four times daily. TIMOLOL MALEATE 0.5 % EYE DENISSE* 1 Drop twice daily. PREDNISONE 20 MG TABLET 60 mg daily for 2 weeks 50 mg* Patient taking differently: 20 mg once daily. MYCOPHENOLATE MOFETIL 500 MG * 1 tablet twice per day for 2 * Patient not taking: Reported on 03/06/2018 SULFAMETHOXAZOLE 800 MG-TRIME* Take 1 tablet by mouth every * FAMOTIDINE 20 MG TABLET Take 1 tablet by mouth twice * ASPIRIN 81 MG CHEWABLE TABLET Take 81 mg by mouth once jose eduardo* ATORVASTATIN 40 MG TABLET Take 40 mg by mouth once jose eduardo* ALPRAZOLAM 1 MG TABLET Take 1 tablet by mouth at bed* Patient not taking: Reported on 03/06/2018 METHADONE 10 MG TABLET Take 10 mg by mouth every 8 h* OXYCODONE-ACETAMINOPHEN 5 MG-* Take 1 tablet by mouth every * Problem List As Of Date 03/14/2018 Noted Resolved Reflex sympathetic dystrophy of lower limb [G90*INVALID FOR* More... NEURALGIA/NEURITIS NOS [[id number]] INVALID FOR* MONONEURITIS LEG NOS [G57.90] INVALID FOR* DYSTHYMIC DISORDER [F34.1] More... ACUTE CHOLECYSTITIS [K81.0] INVALID FOR* Obesity [E66.9] INVALID FOR* De Quervain's tenosynovitis, left [M65.4] INVALID FOR* CMC arthritis [M19.049] INVALID FOR* Thumb pain [M79.646] INVALID FOR* Ischemic stroke of frontal lobe (HCC) [I63.9] INVALID FOR* Factor 5 Leiden mutation, heterozygous (HCC) [D*INVALID FOR* Anti-cardiolipin antibody positive [R76.8] INVALID FOR* More... Obesity, Class II, BMI 35-39.9 [E66.9] INVALID FOR* Vasculitis, MITTEN SEWER (HCC) [I77.6] INVALID FOR* More... Stenosis of right internal carotid artery [I65.*INVALID FOR* More... TIA (transient ischemic attack) [G45.9] INVALID FOR* More... Acute angle-closure glaucoma of left eye [H40.2*INVALID FOR* More... Sinus bradycardia [R00.1] INVALID FOR* More... Leukocytosis [D72.829] INVALID FOR*02/14/2018 More... Other instructions from your clinician: An Overview of Anxiety Disorders What is an anxiety disorder? Anxiety is a normal human emotion. Many people feel anxious, or nervous, when faced with a problem at work, or before taking a test or making an important decision. Anxiety disorders, however, are different. They can cause such distress that it interferes with a person's ability to lead a normal life. An anxiety disorder is a serious mental illness. People with anxiety disorders respond to certain things or situations with fear and dread, as well as physical signs of anxiety such as a pounding heart and sweating. For people with anxiety disorders, worry and fear are constant and overwhelming, and can be crippling. An anxiety disorder is diagnosed if the person's response is not appropriate for the situation, if the person cannot control the response or if the anxiety interferes with normal functioning. Anxiety disorders can get worse if not treated; however, effective treatments are available. What are the types of anxiety disorders? There are several recognized anxiety disorders, including the following: Panic disorder People with this disorder have feelings of terror that strike suddenly and repeatedly with no warning. Other symptoms of a panic attack include sweating, chest pain, palpitations (unpleasant sensations of irregular heartbeats) and a feeling of choking, which might make the person feel like he or she is having a heart attack or going crazy. Obsessive-compulsive disorder (OCD) People with OCD are plagued by constant thoughts or fears that cause them to perform certain rituals or routines. The disturbing thoughts are called obsessions, and the rituals are called compulsions. An example is a person with an unreasonable fear of germs who constantly washes his or her hands. Post-traumatic stress disorder (PTSD) PTSD is a condition that can develop following a traumatic and/or terrifying event, such as a sexual or physical assault, the unexpected of a loved one, or a natural disaster. People with PTSD often have lasting and frightening thoughts and memories of the event, and tend to be emotionally numb. Social anxiety disorder Also called social phobia, social anxiety disorder involves overwhelming worry and self-consciousness about everyday social situations. The worry often centers on a fear of being judged by others, or behaving in a way that might cause embarrassment or lead to ridicule. Specific phobias A specific phobia is an intense fear of a specific object or situation, such as snakes, heights or flying. The level of fear usually is inappropriate to the situation and might cause the person to avoid common, everyday situations. Generalized anxiety disorder This disorder involves excessive, unrealistic worry and tension, even if there is little or nothing to provoke the anxiety. What are the symptoms of an anxiety disorder? Symptoms vary depending on the type of anxiety disorder, but general symptoms of anxiety include: ? Feelings of panic, fear and uneasiness ? Uncontrollable, obsessive thoughts ? Repeated thoughts or flashbacks of traumatic experiences ? Nightmares ? Ritualistic behaviors, such as repeated hand washing ? Problems sleeping ? Cold or sweaty hands ? Shortness of breath ? Palpitations ? An inability to be still and calm ? Dry mouth ? Numbness or tingling in the hands or feet ? Nausea ? Muscle tension What causes anxiety disorders? The exact cause of anxiety disorders is not known; but anxiety disorders?like other forms of mental illness?are not the result of personal weakness, a character flaw or poor upbringing. As scientists continue their research on mental illness, it is becoming clear that many of these disorders are caused by a combination of factors, including biology and environmental stresses. Like certain illnesses, such as diabetes, anxiety disorders might be caused by chemical imbalances in the body. Studies have shown that severe or long-lasting stress can change the balance of chemicals in the brain that control mood. Studies also have shown that anxiety disorders run in families, which means that they can be inherited from one or both parents, like hair or eye color. In addition, certain environmental factors?such as a trauma or significant event?might trigger an anxiety disorder in people who have an inherited susceptibility to developing the disorder. How common are anxiety disorders? Anxiety disorders affect about 40 million adult Americans.They are the most common mental illnesses in the [place] Most anxiety disorders begin in childhood, adolescence and early adulthood. They occur more often in women than in men. How are anxiety disorders diagnosed? If symptoms are present, the doctor will begin an evaluation by performing a complete medical history and physical examination. Although there are no laboratory tests to specifically diagnose anxiety disorders, the doctor might use various diagnostic tests to rule out physical illness as the cause of the symptoms. If no physical illness is found, the person might be referred to a psychiatrist or psychologist, mental health professionals who are specially trained to diagnose and treat mental illnesses. Psychiatrists and psychologists use specially designed interview and assessment tools to evaluate a person for an anxiety disorder. The doctor bases his or her diagnosis on the patient's report of the intensity and duration of symptoms?including any problems with daily functioning caused by the symptoms?and the doctor's observation of the patient's attitude and behavior. The doctor then determines if the patient's symptoms and degree of dysfunction indicate a specific anxiety disorder. The standard reference manual used for the diagnosis of recognized mental illnesses in the [place] is the Diagnostic and Statistical Manual of Mental Disorders (DSM-5), published by the [employer] [employer]. How are anxiety disorders treated? Anxiety disorders are real disorders that require treatment. Recovery is not simply a matter of will and self-discipline. Fortunately, much progress has been made in the last two decades in the treatment of people with mental illnesses. Although the exact treatment approach depends on the type of disorder, one or a combination of the following therapies might be used for most anxiety disorders: Medication Medicines used to reduce the symptoms of anxiety disorders include antidepressants and anxiety-reducing medications. Psychotherapy Psychotherapy (a type of counseling) addresses the emotional response to mental illness. It is a process in which trained mental health professionals help people by talking through strategies for understanding and dealing with their disorder. Cognitive-behavioral therapy People suffering from anxiety disorders often participate in this type of therapy in which the person learns to recognize and change thought patterns and behaviors that lead to troublesome feelings. What is the outlook for people with anxiety disorders? Early diagnosis and treatment can limit the problems caused by an anxiety disorder and improve the outlook. Unfortunately, many anxiety disorders are not recognized and, as a result, not treated. Can anxiety disorders be prevented? Anxiety disorders cannot be prevented; however, there are some things you can do to control or decrease symptoms: ? Stop or reduce your consumption of products that contain caffeine, such as coffee, tea, cola and chocolate. ? Ask your doctor or pharmacist before taking any ggnr-lwl-tncqufe medicines or herbal remedies. Many contain chemicals that can increase anxiety symptoms. ? Exercise daily and eat a healthy, balanced diet. ? Seek counseling and support after a traumatic or disturbing experience. Encounter Status:Closed by ANUJ HANSON MD on 03/18/18 PROGRESS Observed: 03/06/2018 Status: COMPLETED Source: [place] 2:45 PM [facility] REPOSITORY HNO ID: [id number] Author: Arlene Pacheco RN Service: (none) Author Type: (none) Type: Progress Notes Filed: 03/06/2018 2:47 PM Note Text: PATIENT NOTIFIED OF INFORMATION BASIC METABOLIC PANL Collected: 03/06/2018 Status: F Source: [place] 11:52 AM [facility] REPOSITORY TYPE CODE TESTS RESULT OUT OF REFERENCE UNITS RANGE LAB GLU 74-99 mg/dL High Glucose 154 Result Comment: The [place] [employer] (ADA) provides guidance for cutoff values for fasting glucose and random glucose. The ADA defines fasting as no caloric intake for at least 8 hours. Fas ting plasma glucose results between 100 to 125 mg/dL indicate increased risk for diabetes (prediabetes). Fasting plasma glucose results greater than or equal to 126 mg/dL meet the criteria for diagnosis of diabetes. In the absence of unequivocal hyperglycemia, results should be confirmed by repeat testing. In a patient with classic symptoms of hyperglycemia or hyperglycemic crisis, random plasma glucose results greater than or equal to 200 mg/dL meet the criteria for diagnosis of diabetes. Reference: Standards of Medical Care in Diabetes 2016, [place] [employer]. Diabetes Care. 2016.39(Suppl 1). LAB BUN 7-21 mg/dL BUN 16 LAB CRET 0.58-0.96 mg/dL Creatinine 0.84 LAB NA 136-144 mmol/L Low Sodium 135 LAB K 3.7-5.1 mmol/L Potassium 4.6 LAB CL 97-105 mmol/L Low Chloride 94 LAB CO2 22-30 mmol/L Low CO2 20 LAB AGAP 9-18 mmol/L Anion Gap High 21 LAB CA 8.5-10.2 mg/dL Calcium, Total 9.5 LAB GFRAA eGFR- Amer. >60 LAB GFRNAA . eGFR-All Other Races >60 Result Comment: eGFR (Estimated GFR) Units of measure: mL/min/1.73 meters squared eGFR is derived from the reexpressed MDRD Study equation using the following parameters: serum creatinine, age, gender and race. The creatinine assay has been calibrated to be traceable to IDMS. An eGFR <60 mL/min/1.73m2 for >3 months is consistent with chronic kidney disease. Refer to KDOQI guidelines for clinical interpretation. In patients with unstable renal function, e.g. those with acute kidney injury, the eGFR may not accurately reflect actual GFR. Performed By: #### BMP, MG1, CBCDIF #### [facility] [employer] [address] [place], [place] [id number] MAGNESIUM Collected: 03/06/2018 Status: F Source: [place] 11:52 [facility] REPOSITORY TYPE CODE TESTS RESULT OUT OF REFERENCE UNITS RANGE LAB MG 1.7-2.3 mg/dL Magnesium 2.3 Performed By: #### BMP, MG1, CBCDIF #### [facility] [employer] [address] [place], [place] [address] CBC AND DIFFERENTIAL Collected: 03/06/2018 Status: F Source: [place] 11:52 [facility] REPOSITORY TYPE CODE TESTS RESULT OUT OF REFERENCE UNITS RANGE LAB WBC 3.70-11.00 k/uL WBC 10.41 LAB RBC 3.90-5.20 m/uL RBC 5.08 LAB HGB 11.5-15.5 g/dL Hemoglobin 14.8 LAB HCT 36.0-46.0 % Hematocrit 45.9 LAB MCV 80.0-100.0 fL MCV 90.4 LAB MCH 26.0-34.0 pG MCH 29.1 LAB MCHC 30.5-36.0 g/dL MCHC 32.2 LAB RDWCV 11.5-15.0 % RDW-CV 14.9 LAB PLTCT 150-400 k/uL Platelet Count 247 LAB MPV 9.0-12.7 fL MPV 9.8 LAB ANEUT % Neut% 89.4 LAB AANEUT 1.45-7.50 k/uL Abs Neut High 9.31 LAB ALYMP % Lymph% 5.3 LAB AALYMP 1.00-4.00 k/uL Abs Low Lymph 0.55 LAB AMONO % [place]% 4.4 LAB AAMONO <0.87 k/uL Abs [place] 0.46 LAB AEOS % Eosin% 0.0 LAB AAEOS <0.46 k/uL Abs Eosin 0.00 LAB ABASO % Baso% 0.0 LAB AABASO <0.11 k/uL Abs Baso 0.00 LAB AMYELO % Myelo% 0.9 LAB LFTIMI Left Shift Present LAB RBCMOR Red Cell Morph SEE COMMENT Result Comment: Unremarkable LAB PLTEST Platelet Platelet Estimate estimate adequate LAB DTYP DTYPE Manual Diff Performed By: #### BMP, MG1, CBCDIF #### [facility] [address] [id number] XR CHEST 2V FRONTAL/LAT Observed: 03/06/2018 Status: F Source: [place] 11:34 AM [facility] REPOSITORY * * *Final Report* * * DATE OF EXAM: Mar 06 2018 11:34AM WOX [id number] - XR CHEST 2V FRONTAL/LAT / PROCEDURE REASON: Wheezing * * * * Physician Interpretation * * * * EXAMINATION: CHEST RADIOGRAPH (2 VIEW FRONTAL and LATERAL) CLINICAL HISTORY: Wheezing MQ: XC2_5 Comparison: Comparison is made to prior outside study dated 19 September 2017 RESULT: Lines, tubes, and devices: None. Lungs and pleura: Mild chronic interstitial lung changes especially at the lung bases are overall stable. There is no focal consolidation or acute pleural process. There is no overt pulmonary edema. Cardiomediastinal silhouette: Normal cardiomediastinal silhouette. Other: The bony structures are intact. IMPRESSION: Stable chest. No acute cardiopulmonary process. 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 Recheck INR as scheduled 03/14/2018. Jose Beltran DO PROGRESS Observed: 03/06/2018 Status: COMPLETED Source: [place] 11:28 AM [facility] REPOSITORY HNO ID: [id number] Author: Pricila Mcleod Service: (none) Author Type: (none) Type: Progress Notes Filed: 03/06/2018 11:35 AM Note Text: Radiology Service Progress Note PATIENT NAME: Stephanie Moore DATE OF SERVICE: March 06, 2018 TIME: 11:28 AM PATIENT IDENTITY VERIFICATION COMPLETED USING TWO (2) METHODS: Patient confirmed name verbally and Date of . PATIENT GENDER DATA: Female. status: : No status: NO. PATIENT RELEVANT IMPLANT DATA REVIEWED: Not Applicable RADIOLOGY DEPARTMENT: General X-ray: Exam(s) Completed: Chest X-Ray PERIPHERAL IV DATA: Not applicable SIGNED BY: Pricila Mcleod March 06, 2018 11:28 AM PROGRESS Observed: 03/06/2018 Status: COMPLETED Source: [place] 10:39 AM [facility] REPOSITORY HNO ID: [id number] Author: Anuj Hanson Service: (none) Author Type: Physician Type: Progress Notes Filed: 03/06/2018 1:29 PM Note Text: Reason for Visit Patient presents with: Same Day Appointment: d'c'd cellcept because cough and d/c'd xanax- withdraws and no sleep Stephanie Moore is a 58 year old female who presents here today for Above Complaints.. Health Maintenance DTAP,TDAP,TD(1 - Tdap) HEPATITIS C SCREENING HPI Since past visit patient went to see rheumatology. Her headaches, do not seem to be clear for vasculitis of small/medium vessels, or clot in the artery. She did have a stroke. Plan was made for treating her with a trial of immunosuppressive therapy. Below is excerpt from Dr Daksha Krishnamurthy in dec 2017: Will start the following : prednisone trial of 60 mg daily for 2 weeks 50 mg for 2 weeks 40 mg for 2 weeks 30 mg for 2 weeks 20 illigram for 2 weeks 10 mg until her follow-up ? Start CellCept 1 tablet twice per day for 2 weeks then 2 tablet twice per day for 2 weeks then 3 tablets twice per day. After. ? Bactrim Saturday, she will let her primary care physician that she is taking Bactrim giving the interaction with the Coumadin ? Blood tests every month I have placed the order for the blood test Recommended flu and pneumonia vaccine before her immunosuppressive medications ? Follow-up in late March with repeat CTA She had CT of the abdomen and she is going to send results for us to rule out any other paraneoplastic reasons Daksha Ybarra MD. Patient recently has had a cough, with wheeze and there was a phlegm cough, the color was clear and whitsh, she feels sweaty a lot, and has hotflashes for the past 4 days or past week, she is not sure if she has a fever, she stopped the cell cept 3 days, stopped xanax 2 days, today she is feeling restless and tremulous. The patient has difficulty sleeping at night, from wheezing , does not have an inhaler. Patient is also very tremulous agitated, hyper likely due to prednisone but she has also stopped the xanax abruptly just out of fear that she is taking too many medication . The patient was advised to cont the zoloft which she stopped abruptly along with stopping the xanax, Discussed that she should do back on the zoloft take it for atleast 3 weeks before she notices a change, to cont the xanax to such time And then to taper off the xanax Gets xanax from Dr Roy, been on it for the past 7 years and she suddenly, started on zoloft on Saturday. She wanted to get rid of the xanax and she took the zoloft. No problem-specific Assessment AND Plan notes found for this encounter. PAST MEDICAL HISTORY Diagnosis Date - DVT (deep venous thrombosis) (HCC) 2009 - Dysthymic disorder Depression (non-psychotic) - Reflex sympathetic dystrophy of the lower limb PAST SURGICAL HISTORY Procedure Laterality Date - DELIVERY ONLY X3 , low cervical - DANDC, DIAG AND/OR THERAPEUTIC Dilation AND curettage - KNEE SCOPE,DIAGNOSTIC 1996,1999 Arthroscopy, knee right X 2 - LAP CHOLECYSTECT/CHOLANGIOGRAPHY - PAST SURGICAL HISTORY OF 2004 removal spinal cord stimulator - PAST SURGICAL HISTORY OF right foot tendon release, - PAST SURGICAL HISTORY OF 07/2014 Left wrist, first dorsal compartment release - PAST SURGICAL HISTORY OF plantar fascitis - REPAIR INTERCARP/CARP-METACARP JT Left 06/29/2016 Left thumb CMC arthroplasty with ligament reconstruction and tendon interposition - REVISE MEDIAN N/CARPAL TUNNEL SURG Carpal tunnel decomp bilateral - S SPINAL CORD STIMULATOR, 1999 - TOTAL ABDOM HYSTERECTOMY Hysterectomy, IMTIAZ FAMILY HISTORY Problem Relation Age of Onset - Cancer Mother lung/brain/pancreatic - Hypertension Father - Cancer Father Colon - Arthritis Father - Heart Sister no details MVP - Arthritis Brother - Stroke Paternal Grandfather - Multiple Sclerosis Sister - No Known Problems Brother Social History Substance Use Topics - Smoking status: Former Smoker Packs/day: 1.00 Years: 7.00 Types: Cigarettes Quit date: 01/06/1998 - Smokeless tobacco: Never Used - Alcohol use No Past medical history, appointments, medications, allergies reviewed. Pertinent Lab/Diagnostic Studies are reviewed and discussed today Current Outpatient Prescriptions: - lidocaine (LIDODERM) 5 % - lidocaine-prilocaine (EMLA) cream - sertraline (ZOLOFT) 50 mg tablet - warfarin (COUMADIN) 2 mg tablet - brinzolamide-brimonidine (SIMBRINZA) 1%-0.2 % Ophth Susp - Besifloxacin (BESIVANCE) 0.6 % drps - bimatoprost (LUMIGAN) 0.01 % drop ophthalmic drops - prednisoLONE acetate (PRED FORTE, ECONOPRED PLUS) 1 % ophthalmic suspension - timolol maleate (TIMOPTIC) 0.5 % ophthalmic solution - predniSONE (DELTASONE) 20 mg tablet - mycophenolate Mofetil (CELLCEPT) 500 mg tablet - sulfamethoxazole-trimethoprim (BACTRIM DS) 800-160 mg per tablet - famotidine (PEPCID AC) 20 mg tablet - aspirin (ZACK CHEWABLE ASPIRIN) 81 mg chewable tablet - atorvastatin (LIPITOR) 40 mg tablet - ALPRAZolam (XANAX) 1 mg tablet - methadone 10 mg tablet - oxyCODONE-acetaminophen (PERCOCET) 5-325 mg tablet Review of Systems CONSTITUTIONAL: No fevers, chills night sweats, unintended weight loss CARDIOVASCULAR: No chest pain, dyspnea, palpitations, orthopnea, PND, ankle edema. PULM: No dyspnea, unexplained cough. GI: No dysphagia/odynophagia, problematic reflux, constipation, diarrhea, changes in stool habits, hematochezia, melena. : No new urinary complaints, including dysuria, gross hematuria or pyuria. NEURO: No new balance problems, peripheral weakness/paresthesias or numbness of concern. Physical Exam BP 136/88 (BP Site: Left Arm, BP Position: Sitting, BP Cuff Size: Large Adult) Pulse 84 Resp 12 Ht 162.6 cm (5' 4) Wt 103 kg (227 lb) SpO2 96% BMI 38.96 kg/m? General appearance: Well appearing, alert, in no acute distress, well nourished. Skin: Skin color, texture, turgor normal, no suspicious rashes or lesions Head: Normocephalic, no masses, lesions, tenderness or abnormalities Eyes: Anicteric sclera. Pupils are equally round and reactive to light. Extraocular movements are intact. Lungs: Lungs clear to auscultation. No wheezing, rhonchi, rales Heart: RRR without murmur, gallop, or rubs. Extremities: No deformities, edema, skin discoloration, clubbing or cyanosis. Good capillary refill. ASSESSMENT/PLAN: 1. Muscle spasm - ICD9: 728.85, ICD10: M62.838 (primary diagnosis) Check - BASIC METABOLIC PNL - MAGNESIUM BLD 2. Immunosuppressed status (HCC) - ICD9: 279.9, ICD10: D89.9 Discussed that she should go back on all her medications, to never stop it abruptly 3. Viral illness - ICD9: 079.99, ICD10: B34.9 - Discussed viral etiology and rationale for treatment. - Symptomatic treatment with prn analgesia - Supportive care with fluids and rest - CBC + DIFF 4. Wheezing - ICD9: 786.07, ICD10: R06.2 - XR CHEST 2V FRONTAL/LAT - ALBUTEROL SULFATE HFA 90 MCG/ACTUATION AEROSOL INHALER 5. Anxiety - ICD9: 300.00, ICD10: F41.9 Patient is very tremulous agitated, hyper likely due to prednisone but she has also stopped the xanax abruptly just out of fear that she is taking too many medication . The patient was advised to cont the zoloft which she stopped abruptly along with stopping the xanax, Discussed that she should do back on the zoloft take it for atleast 3 weeks before she notices a change, to cont the xanax to such time And then to taper off the xanax Gave her buspar to add on to the xanax for the time the zoloft kicks in and the prednisone effect it gone. ANUJ HANSON MD PROGRESS Observed: 03/06/2018 Status: COMPLETED Source: [place] 10:04 AM [facility] REPOSITORY HNO ID: [id number] Author: Arlene Pacheco RN Service: (none) Author Type: (none) Type: Progress Notes Filed: 03/06/2018 10:05 AM Note Text: patient had inr completed at [facility] patients inr is 4.0 (patients inr range is 2.0-3.0) patient is currently taking 4mg daily patients last dose change was on 02/10/18 due to a high level of 3.6 (dose at that time was 5mg daily) patient has had a change in medication and patient is still on bactrim Mon,Wed,Fri and has started zoloft, and no missed coumadin doses and no change in diet Advised patient that they would be contacted regarding medication dose and when to follow up after information is reviewed by provider. After provider review please contact the patient with information and schedule follow up appointment with coumadin clinic. FYI - patient has been scheduled for a 1 week follow up inr on 03/14/18 CNOV Observed: 03/06/2018 Status: COMPLETED Source: [place] 9:40 AM [facility] REPOSITORY Office Visit ([facility]) STEPHANIE MOORE ([id number]) 1960 F Date Time Provider Department 03/06/18 9:40 AM ANUJ HANSON [facility] During your visit today, we recorded the following information about you: Pulse Respiration Blood pressure Weight 84/minute 12/minute 136/88 103 kg Height 1.626 m ANUJ HANSON MD 03/06/2018 1:29 PM Signed Reason for Visit Patient presents with: Same Day Appointment: d'c'd cellcept because cough and d/c'd xanax- withdraws and no sleep Stephanie Bauerenio is a 58 year old female who presents here today for Above Complaints.. Health Maintenance DTAP,TDAP,TD(1 - Tdap) HEPATITIS C SCREENING HPI Since past visit patient went to see rheumatology. Her headaches, do not seem to be clear for vasculitis of small/medium vessels, or clot in the artery. She did have a stroke. Plan was made for treating her with a trial of immunosuppressive therapy. Below is excerpt from Dr Daksha Krishnamurthy in dec 2017: Will start the following : prednisone trial of 60 mg daily for 2 weeks 50 mg for 2 weeks 40 mg for 2 weeks 30 mg for 2 weeks 20 illigram for 2 weeks 10 mg until her follow-up ? Start CellCept 1 tablet twice per day for 2 weeks then 2 tablet twice per day for 2 weeks then 3 tablets twice per day. After. ? Bactrim Saturday, she will let her primary care physician that she is taking Bactrim giving the interaction with the Coumadin ? Blood tests every month I have placed the order for the blood test Recommended flu and pneumonia vaccine before her immunosuppressive medications ? Follow-up in late March with repeat CTA She had CT of the abdomen and she is going to send results for us to rule out any other paraneoplastic reasons Daksha Ybarra MD. Patient recently has had a cough, with wheeze and there was a phlegm cough, the color was clear and whitsh, she feels sweaty a lot, and has hotflashes for the past 4 days or past week, she is not sure if she has a fever, she stopped the cell cept 3 days, stopped xanax 2 days, today she is feeling restless and tremulous. The patient has difficulty sleeping at night, from wheezing , does not have an inhaler. Patient is also very tremulous agitated, hyper likely due to prednisone but she has also stopped the xanax abruptly just out of fear that she is taking too many medication . The patient was advised to cont the zoloft which she stopped abruptly along with stopping the xanax, Discussed that she should do back on the zoloft take it for atleast 3 weeks before she notices a change, to cont the xanax to such time And then to taper off the xanax Gets xanax from Dr Roy, been on it for the past 7 years and she suddenly, started on zoloft on Saturday. She wanted to get rid of the xanax and she took the zoloft. No problem-specific Assessment AND Plan notes found for this encounter. PAST MEDICAL HISTORY Diagnosis Date - DVT (deep venous thrombosis) (HCC) 2009 - Dysthymic disorder Depression (non-psychotic) - Reflex sympathetic dystrophy of the lower limb PAST SURGICAL HISTORY Procedure Laterality Date - DELIVERY ONLY X3 , low cervical - DANDC, DIAG AND/OR THERAPEUTIC Dilation AND curettage - KNEE SCOPE,DIAGNOSTIC 1996,1999 Arthroscopy, knee right X 2 - LAP CHOLECYSTECT/CHOLANGIOGRAPHY - PAST SURGICAL HISTORY OF 2004 removal spinal cord stimulator - PAST SURGICAL HISTORY OF right foot tendon release, - PAST SURGICAL HISTORY OF 07/2014 Left wrist, first dorsal compartment release - PAST SURGICAL HISTORY OF plantar fascitis - REPAIR INTERCARP/CARP-METACARP JT Left 06/29/2016 Left thumb CMC arthroplasty with ligament reconstruction and tendon interposition - REVISE MEDIAN N/CARPAL TUNNEL SURG Carpal tunnel decomp bilateral - S SPINAL CORD STIMULATOR, 1999 - TOTAL ABDOM HYSTERECTOMY Hysterectomy, IMTIAZ FAMILY HISTORY Problem Relation Age of Onset - Cancer Mother lung/brain/pancreatic - Hypertension Father - Cancer Father Colon - Arthritis Father - Heart Sister no details MVP - Arthritis Brother - Stroke Paternal Grandfather - Multiple Sclerosis Sister - No Known Problems Brother Social History Substance Use Topics - Smoking status: Former Smoker Packs/day: 1.00 Years: 7.00 Types: Cigarettes Quit date: 01/06/1998 - Smokeless tobacco: Never Used - Alcohol use No Past medical history, appointments, medications, allergies reviewed. Pertinent Lab/Diagnostic Studies are reviewed and discussed today Current Outpatient Prescriptions: - lidocaine (LIDODERM) 5 % - lidocaine-prilocaine (EMLA) cream - sertraline (ZOLOFT) 50 mg tablet - warfarin (COUMADIN) 2 mg tablet - brinzolamide-brimonidine (SIMBRINZA) 1%-0.2 % Ophth Susp - Besifloxacin (BESIVANCE) 0.6 % drps - bimatoprost (LUMIGAN) 0.01 % drop ophthalmic drops - prednisoLONE acetate (PRED FORTE, ECONOPRED PLUS) 1 % ophthalmic suspension - timolol maleate (TIMOPTIC) 0.5 % ophthalmic solution - predniSONE (DELTASONE) 20 mg tablet - mycophenolate Mofetil (CELLCEPT) 500 mg tablet - sulfamethoxazole-trimethoprim (BACTRIM DS) 800-160 mg per tablet - famotidine (PEPCID AC) 20 mg tablet - aspirin (ZACK CHEWABLE ASPIRIN) 81 mg chewable tablet - atorvastatin (LIPITOR) 40 mg tablet - ALPRAZolam (XANAX) 1 mg tablet - methadone 10 mg tablet - oxyCODONE-acetaminophen (PERCOCET) 5-325 mg tablet Review of Systems CONSTITUTIONAL: No fevers, chills night sweats, unintended weight loss CARDIOVASCULAR: No chest pain, dyspnea, palpitations, orthopnea, PND, ankle edema. PULM: No dyspnea, unexplained cough. GI: No dysphagia/odynophagia, problematic reflux, constipation, diarrhea, changes in stool habits, hematochezia, melena. : No new urinary complaints, including dysuria, gross hematuria or pyuria. NEURO: No new balance problems, peripheral weakness/paresthesias or numbness of concern. Physical Exam BP 136/88 (BP Site: Left Arm, BP Position: Sitting, BP Cuff Size: Large Adult) Pulse 84 Resp 12 Ht 162.6 cm (5' 4) Wt 103 kg (227 lb) SpO2 96% BMI 38.96 kg/m? General appearance: Well appearing, alert, in no acute distress, well nourished. Skin: Skin color, texture, turgor normal, no suspicious rashes or lesions Head: Normocephalic, no masses, lesions, tenderness or abnormalities Eyes: Anicteric sclera. Pupils are equally round and reactive to light. Extraocular movements are intact. Lungs: Lungs clear to auscultation. No wheezing, rhonchi, rales Heart: RRR without murmur, gallop, or rubs. Extremities: No deformities, edema, skin discoloration, clubbing or cyanosis. Good capillary refill. ASSESSMENT/PLAN: 1. Muscle spasm - ICD9: 728.85, ICD10: M62.838 (primary diagnosis) Check - BASIC METABOLIC PNL - MAGNESIUM BLD 2. Immunosuppressed status (HCC) - ICD9: 279.9, ICD10: D89.9 Discussed that she should go back on all her medications, to never stop it abruptly 3. Viral illness - ICD9: 079.99, ICD10: B34.9 - Discussed viral etiology and rationale for treatment. - Symptomatic treatment with prn analgesia - Supportive care with fluids and rest - CBC + DIFF 4. Wheezing - ICD9: 786.07, ICD10: R06.2 - XR CHEST 2V FRONTAL/LAT - ALBUTEROL SULFATE HFA 90 MCG/ACTUATION AEROSOL INHALER 5. Anxiety - ICD9: 300.00, ICD10: F41.9 Patient is very tremulous agitated, hyper likely due to prednisone but she has also stopped the xanax abruptly just out of fear that she is taking too many medication . The patient was advised to cont the zoloft which she stopped abruptly along with stopping the xanax, Discussed that she should do back on the zoloft take it for atleast 3 weeks before she notices a change, to cont the xanax to such time And then to taper off the xanax Gave her buspar to add on to the xanax for the time the zoloft kicks in and the prednisone effect it gone. ANUJ HANSON MD Referring Provider: YANY WHEAT ([facility]) [[id number]] Allergies As of Date: 03/06/2018 Noted Allergy Reaction OPIOIDS - MORPHINE ANALOGUES 08/29/2000 Comments: vicodin PENTAZOCINE 08/29/2000 Comments: talwin PROPOXYPHENE 08/29/2000 Comments: darvacet steri strips and paper tape [Othe*12/30/2006 TALACEN (PENTAZOCINE-ACETAMINOPHE*08/20/2005 1 - Mental Status Change Date Reviewed: 03/06/2018 Reviewed by: Adele Dawn LPN - Fully Assessed Reason for Visit: Same Day Appointment [255] Cmt: d'c'd cellcept because cough and d/c'd xanax- withdraws and no sleep Reason For Visit History Recorded Primary Visit Diagnosis:Muscle spasm [M62.838] Other Visit Diagnoses:Immunosuppressed status (HCC) [D89.9] Viral illness [B34.9] Wheezing [R06.2] Anxiety [F41.9] Order(s):INR (POC) [[id number]] Order #: [id number]. #:[id number] + DIFF [SQCBCDIF] Order #: [id number] FUTURE XR CHEST 2V FRONTAL/LAT [[id number]] Order #: [id number] FUTURE albuterol HFA (PROVENTIL HFA, VENTOLIN HFA) 90 mcg/actuation inhalerInhale 2 Puffs as instructed every 4 hours as needed.Disp: 1 EachRfl: 1 BASIC METABOLIC PNL [SQBMP] Order #: [id number] FUTURE MAGNESIUM BLD [SQMG1] Order #: [id number] FUTURE busPIRone (BUSPAR) 5 mg tabletTake 1 tablet by mouth three times daily.Disp: 90 tabletRfl: 0 Prescriptions as of 03/06/2018 Sig: LIDOCAINE 5 % TOPICAL PATCH APPLY ONE PATCH TOPICALLY TO * LIDOCAINE-PRILOCAINE 2.5 %-2.* ALBUTEROL SULFATE HFA 90 MCG/* Inhale 2 Puffs as instructed * BUSPIRONE 5 MG TABLET Take 1 tablet by mouth three * SERTRALINE 50 MG TABLET Half a tablet daily for 2 wee* WARFARIN 2 MG TABLET Take 2 tablets by mouth daily* BRINZOLAMIDE 1 %-BRIMONIDINE * Use in the left eye three domingo* BESIFLOXACIN 0.6 % EYE DROPS,* Use 1 Drop in the left eye th* BIMATOPROST 0.01 % EYE DROPS Use 1 Drop in the left eye da* PREDNISOLONE ACETATE 1 % EYE * 1 Drop four times daily. TIMOLOL MALEATE 0.5 % EYE DENISSE* 1 Drop twice daily. PREDNISONE 20 MG TABLET 60 mg daily for 2 weeks 50 mg* Patient taking differently: 20 mg once daily. MYCOPHENOLATE MOFETIL 500 MG * 1 tablet twice per day for 2 * Patient not taking: Reported on 03/06/2018 SULFAMETHOXAZOLE 800 MG-TRIME* Take 1 tablet by mouth every * FAMOTIDINE 20 MG TABLET Take 1 tablet by mouth twice * ASPIRIN 81 MG CHEWABLE TABLET Take 81 mg by mouth once jose eduardo* ATORVASTATIN 40 MG TABLET Take 40 mg by mouth once jose eduardo* ALPRAZOLAM 1 MG TABLET Take 1 tablet by mouth at bed* Patient not taking: Reported on 03/06/2018 METHADONE 10 MG TABLET Take 10 mg by mouth every 8 h* OXYCODONE-ACETAMINOPHEN 5 MG-* Take 1 tablet by mouth every * Problem List As Of Date 03/06/2018 Noted Resolved Reflex sympathetic dystrophy of lower limb [G90*INVALID FOR* More... NEURALGIA/NEURITIS NOS [ZVS1635] INVALID FOR* MONONEURITIS LEG NOS [G57.90] INVALID FOR* DYSTHYMIC DISORDER [F34.1] More... ACUTE CHOLECYSTITIS [K81.0] INVALID FOR* Obesity [E66.9] INVALID FOR* De Quervain's tenosynovitis, left [M65.4] INVALID FOR* CMC arthritis [M19.049] INVALID FOR* Thumb pain [M79.646] INVALID FOR* Ischemic stroke of frontal lobe (HCC) [I63.9] INVALID FOR* Factor 5 Leiden mutation, heterozygous (HCC) [D*INVALID FOR* Anti-cardiolipin antibody positive [R76.8] INVALID FOR* More... Obesity, Class II, BMI 35-39.9 [E66.9] INVALID FOR* Vasculitis, MITTEN SEWER (HCC) [I77.6] INVALID FOR* More... Stenosis of right internal carotid artery [I65.*INVALID FOR* More... TIA (transient ischemic attack) [G45.9] INVALID FOR* More... Acute angle-closure glaucoma of left eye [H40.2*INVALID FOR* More... Sinus bradycardia [R00.1] INVALID FOR* More... Leukocytosis [D72.829] INVALID FOR*02/14/2018 More... Prescriptions ordered this encounter Disp Refills Start End ALBUTEROL SULFATE HFA 90 MCG/ACTUATI* 1 Ea* 1 03/06/2018 Route: INHALATION Sig: Inhale 2 Puffs as instructed every 4 hours as needed. BUSPIRONE 5 MG TABLET 90 t* 0 03/06/2018 Route: ORAL Sig: Take 1 tablet by mouth three times daily. Encounter Status:Closed by ANUJ HANSON MD on 03/06/18 OLIVIA Observed: 03/06/2018 Status: COMPLETED Source: [place] 9:30 AM [facility] REPOSITORY [facility] MO[facility] ([id number]) 1960 F Date Time Provider Department 03/06/18 9:30 AM [facility] During your visit today, we recorded the following information about you: Temperature Pulse Respiration Blood pressure 99.3 degrees 92/minute 16/minute 182/96 Weight 103.7 kg Referring Provider: SELF [200] Allergies As of Date: 03/06/2018 Noted Allergy Reaction OPIOIDS - MORPHINE ANALOGUES 08/29/2000 Comments: vicodin PENTAZOCINE 08/29/2000 Comments: talwin PROPOXYPHENE 08/29/2000 Comments: darvacet steri strips and paper tape [Othe*12/30/2006 TALACEN (PENTAZOCINE-ACETAMINOPHE*08/20/2005 1 - Mental Status Change Date Reviewed: 03/06/2018 Reviewed by: Adele Dawn LPN - Fully Assessed Reason for Visit: Cough [28] Cmt: x 4 days Primary Visit Diagnosis:Patient left without being seen [Z53.21] Prescriptions as of 03/06/2018 Sig: LIDOCAINE 5 % TOPICAL PATCH APPLY ONE PATCH TOPICALLY TO * LIDOCAINE-PRILOCAINE 2.5 %-2.* SERTRALINE 50 MG TABLET Half a tablet daily for 2 wee* WARFARIN 2 MG TABLET Take 2 tablets by mouth daily* PREDNISOLONE ACETATE 1 % EYE * 1 Drop four times daily. PREDNISONE 20 MG TABLET 60 mg daily for 2 weeks 50 mg* Patient taking differently: 20 mg once daily. SULFAMETHOXAZOLE 800 MG-TRIME* Take 1 tablet by mouth every * FAMOTIDINE 20 MG TABLET Take 1 tablet by mouth twice * ASPIRIN 81 MG CHEWABLE TABLET Take 81 mg by mouth once jose eduardo* ATORVASTATIN 40 MG TABLET Take 40 mg by mouth once jose eduardo* METHADONE 10 MG TABLET Take 10 mg by mouth every 8 h* OXYCODONE-ACETAMINOPHEN 5 MG-* Take 1 tablet by mouth every * BRINZOLAMIDE 1 %-BRIMONIDINE * Use in the left eye three domingo* BESIFLOXACIN 0.6 % EYE DROPS,* Use 1 Drop in the left eye th* BIMATOPROST 0.01 % EYE DROPS Use 1 Drop in the left eye da* TIMOLOL MALEATE 0.5 % EYE DENISSE* 1 Drop twice daily. MYCOPHENOLATE MOFETIL 500 MG * 1 tablet twice per day for 2 * Patient not taking: Reported on 03/06/2018 ALPRAZOLAM 1 MG TABLET Take 1 tablet by mouth at bed* Patient not taking: Reported on 03/06/2018 Medication notes this encounter LIDOCAINE 5 % TOPICAL PATCH >> John Olsen Ma 03/06/2018 9:36 AM >> PRETTY KERR JOHN Cyndy Mar 06, 2018 9:36 AM PRN SULFAMETHOXAZOLE 800 MG-TRIMETHOPRIM 160 MG TABLET >> John Olsen Ma 03/06/2018 9:34 AM >> JOHN OLSEN MA Cyndy Mar 06, 2018 9:34 AM MYCOPHENOLATE MOFETIL 500 MG TABLET >> John Olsen Ma 03/06/2018 9:34 AM >> JOHN OLSEN MA Cyndy Mar 06, 2018 9:34 AM PATIENT STOPPED TAKING ON OWN 03/03/18 FELT IT CAUSED COUGH Problem List As Of Date 03/06/2018 Noted Resolved Reflex sympathetic dystrophy of lower limb [G90*INVALID FOR* More... NEURALGIA/NEURITIS NOS [WCO6248] INVALID FOR* MONONEURITIS LEG NOS [G57.90] INVALID FOR* DYSTHYMIC DISORDER [F34.1] More... ACUTE CHOLECYSTITIS [K81.0] INVALID FOR* Obesity [E66.9] INVALID FOR* De Quervain's tenosynovitis, left [M65.4] INVALID FOR* CMC arthritis [M19.049] INVALID FOR* Thumb pain [M79.646] INVALID FOR* Ischemic stroke of frontal lobe (HCC) [I63.9] INVALID FOR* Factor 5 Leiden mutation, heterozygous (HCC) [D*INVALID FOR* Anti-cardiolipin antibody positive [R76.8] INVALID FOR* More... Obesity, Class II, BMI 35-39.9 [E66.9] INVALID FOR* Vasculitis, MITTEN SEWER (HCC) [I77.6] INVALID FOR* More... Stenosis of right internal carotid artery [I65.*INVALID FOR* More... TIA (transient ischemic attack) [G45.9] INVALID FOR* More... Acute angle-closure glaucoma of left eye [H40.2*INVALID FOR* More... Sinus bradycardia [R00.1] INVALID FOR* More... Leukocytosis [D72.829] INVALID FOR*02/14/2018 More... Encounter Status:Closed by JOHN OLSEN MA on 03/07/18 12 LEAD ELECTROCARDIOGRAM Observed: 02/24/2018 Status: F Source: [place] 12:36 PM [facility] Cardiovascular Services [address] [place] [address] 12 Lead EKG 02/22/18 1135 MR#: [id number] Acct: [id number] Name: STEPHANIE MOORE Dayanna Rep #: [id number] : 1960 57 From: Jose Lopez MD Attending Dr: Status: DEP ER Ordering Dr: Bernardo Barton MD Date: 02/22/18 Location: ED Sex: F C Admitted: Test Reason : BACK PAIN Blood Pressure : / mmHG Vent. Rate : 062 BPM Atrial Rate : 062 BPM P-R Int : 110 ms QRS Dur : 094 ms QT Int : 396 ms P-R-T Axes : 006 017 038 degrees QTc Int : 401 ms Sinus rhythm with short MS Otherwise normal ECG Confirmed by ANTONIO BRENNAN, JOSE ([id number]), continuity editor GRACE WALTERS ([id number]) on 02/24/2018 12:36:17 PM Referred By: CHAD Confirmed By:JOSE LOPEZ MD 02/24/18 1236 Date Jose Lopez MD CC: Anuj Hanson MD; Bernardo Barton MD Signed DISCHARGE INSTRUCTION Observed: 02/22/2018 Status: F Source: [place] 12:44 PM [facility] Medical Records Department [address] [place] [address] Discharge Instruction 02/22/18 1242 MR#: [id number] Acct: [id number] Name: ELAINE MOORENadiya Alan Rep #: [id number] : 1960 57 From: Bernardo Barton MD PCP: Anuj Hanson MD Status: REG ER ED Disposition - Plan for ED Patient: Disposition: Home or Assisted Living Chief Complaint: Shortness of Breath Instructions: ED Sprain Thoracic Spine Prescriptions: Lidocaine [Lidoderm Patch] 1 patch TOPICAL DAILY #14 patch Referrals: Anuj Hanson MD [Primary Care Provider] - What to do if you have Problems For any increased pain, shortness of breath, bleeding, nausea or vomiting, chest pain, or any unexpected problems, contact your Primary Care Provider. Call [facility] ([phone]) or report to the closest Emergency Room. Call 911 if necessary. 02/22/18 1244 <Electronically signed by Bernardo Barton MD> Date Bernardo Barton MD Cosigner Signature (If Indicated): Date CC: Anuj Hanson MD EMERGENCY DEPARTMENT Observed: 02/22/2018 Status: F Source: [place] SUMMARY 12:42 PM [facility] REPOSITORY [facility] Medical Records Department [address] [place] [address] Emergency Department Summary 02/22/18 1203 MR#: [id number] Acct: [id number] Name: STEPHANIE MOORE Rep #: [id number] : 1960 57 From: Bernardo Barton MD PCP: Anuj Hanson MD Status: REG ER - ER Visit Summary Date of Service: 02/22/18 Chief Complaint: Right-sided back pain History of Present Illness: The patient is a 57 F who is right- sided back pain. She has had this for a week. It is on the right thoracic side. Is worse with movement. She tried Flexeril and Percocet but it is not helping. She denies any injuries. She also complains of shortness of breath. She has a history of a DVT and factor V Leiden. She is on Coumadin. Her last INR was 2.9. She also has a history of RSD in the leg. She was seen at an urgent care and was directed here for further evaluation. Physical Examination: Vital signs reviewed. HEENT exam unremarkable. Heart is regular rate and rhythm without murmurs. Lungs are clear to auscultation. Abdomen is soft and nontender. Back exam reveals right-sided paraspinal tenderness to palpation in the thoracic area. Extremities reveal no edema. Skin exam normal. Neurologic exam normal. Test Results: EKG is sinus rhythm with rate of 62. White blood cell count 16.3. Chloride 108, glucose 141. INR of 3.8. Troponin 0 0.086. CTA of the chest reveals no PE. There is some chronic blebs. Emergency Department Course and Treatment: The patient was given morphine for her pain. Her troponin is elevated but it is slightly lower than when it was over a week ago. I feel is likely trending down. She has no anterior chest pain. Her back pain is reproducible and I feel it is musculoskeletal. It is worse with movement. She has no PE or pneumonia. I feel that she would benefit from a topical lidocaine patch. She has Percocet and Flexeril at home. She will follow-up with her PCP. Treatment Plan: [] Disposition: Discharge Impression: Thoracic back pain This note was generated with [employer] dictation software. It may contain incorrect words, spelling, and punctuation that were not noted in review of the chart prior to signing ED Disposition - Plan for ED Patient: Chief Complaint: Shortness of Breath Referrals: Anuj Hanson MD [Primary Care Provider] - What to do if you have Problems For any increased pain, shortness of breath, bleeding, nausea or vomiting, chest pain, or any unexpected problems, contact your Primary Care Provider. Call [facility] ([phone]) or report to the closest Emergency Room. Call 911 if necessary. 02/22/18 1242 <Electronically signed by Bernardo Barton MD> Date Bernardo Barton MD Cosigner Signature (If Indicated): Date CC: Anuj Hanson MD CBC W/DIFF, AUTOMATED Collected: 02/22/2018 Status: C Source: [place] 11:46 AM [facility] REPOSITORY TYPE CODE TESTS RESULT OUT OF RANGE REFERENCE UNITS LAB L100.1000 4.4-11.0 K/mm3 High WBC 16.3 LAB L100.1200 4.2-5.4 M/mm3 Normal RBC 4.33 LAB L100.1300 12.0-15.0 g/dl Normal HGB 12.6 LAB L100.1400 37-47 % Normal HCT 39.4 LAB L100.1500 81-99 fL Normal MCV 91.0 LAB L100.1600 27.0-32.0 pg Normal MCH 29.1 LAB L100.1700 32-36 g/gl Normal MCHC 32.0 LAB L100.1810 11.6-14.6 % Normal RDW CV 14.6 LAB L100.1820 35.1-43.9 fl High RDW SD 48.7 LAB L100.1900 150-450 K/mm3 Normal PLT 285 LAB L100.2000 6.2-12.0 fl Normal MPV 9.6 LAB L100.2100 47-70 % High NEUT% 84.4 LAB L100.2200 19-41 % Low LY% 8.3 LAB L100.2300 0-10 % Normal MONO% 4.7 LAB L100.2400 0-5 % Normal EO% 0.1 LAB L100.2500 0-1 % Normal BASO% 0.1 LAB L100.2550 0.0-0.9 % High IM GRAN % 2.400 Result Comment: IG% - Immature Granulocytes (promyelocytes, myelocytes and metamyelocytes) > 1% indicates that a LEFT SHIFT is Present. LAB L100.2620 2.0-7.7 X10 3/uL High Absolute Neut 13.8 LAB L100.2720 0.83-4.51 X10 3/ul Normal Absolute Lymph 1.36 LAB L100.4500 Normal SMEAR COMMENT SCANNED Result Comment: FEW BANDS NOTED LAB L100.9900 Normal Reviewed PATH REV Result Comment: Neutrophilic leukocytosis. Clinical correlation necessary. William Ramirez M.D. 02/24/18 AMENDED REPORT 02/24/18 1055 PATH REV previously reported as: June ivis Performed By: #### L100.0100 #### [facility] [address] [place], [address] PROTHROMBIN TIME W/INR Collected: 02/22/2018 Status: F Source: [place] 11:46 AM [facility] REPOSITORY TYPE CODE TESTS RESULT OUT OF REFERENCE UNITS RANGE LAB L300.4150 11.7-14.9 SECONDS High PROTIME 37.5 LAB L300.4200 High alert INR 3.8 Result Comment: RESULTS CALLED TO RAOUL BELLE 02/22/18 1202 Keyana Oliver. REPORT READ BACK BY SAME. Performed By: #### L300.3900 #### [facility] [address] [place], [address] BASIC METABOLIC Collected: 02/22/2018 Status: F Source: [place] PROFILE (BMP) 11:46 AM [facility] REPOSITORY TYPE CODE TESTS RESULT OUT OF RANGE REFERENCE UNITS LAB L501.0100 74-106 mg/dL High GLU 141 Result Comment: Fasting Glucose result greater than or equal to 126 mg/dL suggests DIABETES MELLITUS per A.D.A. criteria. Please note revised GLUCOSE reference range effective 2017. LAB L501.1000 7-18 mg/dL Normal BUN 18 LAB L501.1100 0.55-1.02 mg/dL Normal CREAT,SERUM 0.92 Result Comment: The validity of the calculated GFR AND GFRAA in patients over 70 years has not been determined. Clinical correlation is essential. LAB L501.1110 >60 mL/min Normal EST GFR 68 Result Comment: Non- GFR Calc LAB L501.1115 >60 mL/min Normal EST GFR - AA 82 Result Comment: GFR Calc LAB L501.1255 ml/min Normal Estimated CRCL 62.17 LAB L501.1300 10-20 RATIO Normal BUN/CRE 19.7 LAB L501.2200 8.5-10 mg/dL Low .1 CA 8.3 LAB L501.5300 136-14 mmol/L Normal 5 NA 143 LAB L501.5600 3.5-5. mmol/L Normal 1 K 4.1 LAB L501.5900 98-107 mmol/L High CL 108 LAB L501.6100 21.0-3 mmol/L Normal 2.0 CO2 24.0 LAB L501.6200 5-15 Normal GAP 11 Performed By: #### L500.2500, L501.4010 #### [facility] [address] [place], [address] TROPONIN-I Collected: 02/22/2018 Status: F Source: [place] 11:46 AM [facility] REPOSITORY TYPE CODE TESTS RESULT OUT OF RANGE REFERENCE UNITS LAB L501.4010 <0.045 ng/mL High 0.086 TROPONIN-I Result Comment: TROPONIN-I EXPECTED VALUES <0.045 Negative 0.045 - 0.590 Consistent with Cardiac Damage > OR = 0.600 Critical Value Not every elevated troponin is indicative of IL. These values should be used with clinical judgement in examining the patient's clinical picture for diagnosis. To establish a diagnosis of IL versus myocardial injury, there must be a demonstrated rise and/or fall in the troponin values, in addition to ischemic symptoms, EKG changes, new regional wall motion abnormality, and/or angiographical evidence. PLEASE NOTE: REFERENCE RANGES EDITED 17 Performed By: #### L500.2500, L501.4010 #### [facility] [address] [place], [address] CTA CHEST W/WO Observed: 02/22/2018 Status: F Source: [place] CONTRAST 11:38 AM [facility] REPOSITORY [facility] Imaging Services [address] [facility] [place] [address] CTA Chest W/WO Contrast MR#: [id number] Acct: [id number] Name: STEPHANIE MOOER Rep #: [id number] : 1960 F 57 From: Jaleel Boston MD PCP: Anuj Hanson MD Status: REG ER Study: CTA Chest W/WO Contrast Date of Exam: 02/22/18 Exam# [id number] Ordering Dr: Bernardo Barton MD STUDY: CTA CHEST REASON FOR EXAM: Female, 57 years old. Shortness of breath, upper back pain RADIATION DOSAGE (If Supplied By Facility): CTDIvol = ( 21.71 ) mGy, DLP = ( 652.64 ) mGycm TECHNIQUE: The examination was performed with the intravenous administration of 100ml ml of Isovue 370 contrast material. Post-processing of the angiographic images was performed, with multiplanar reformation and 3D reconstruction. Individualized dose optimization techniques were used for this CT. COMPARISON: None. FINDINGS: There is limited enhancement of the main pulmonary artery and right and left pulmonary arteries. There is limited enhancement of the bilateral peripheral pulmonary arteries. There is no demonstrated pulmonary embolism however, a subtle filling defect could be present and overlooked particularly in the distal vessels due to the suboptimal contrast bolus.. Normal thoracic aorta and visualized great vessels. There is no demonstrated aortic dissection. Normal heart and pericardium. Normal mediastinum. Normal hilar regions. Normal visualized trachea and bronchi. The lungs are well expanded. Emphysematous blebs noted in both upper lobes, there is no superimposed acute pulmonary process, or suspicious noncalcified mass or nodule. There is lingular atelectasis. Normal pleura. Normal chest wall structures. There are degenerative changes of thoracic spine. Normal visualized upper abdomen. CT/CTA Chest W/WO Contrast IMPRESSION: No demonstrated PE. However, the contrast bolus within the pulmonary arteries is not optimal, and a subtle filling defect could be present and overlooked due to the suboptimal bolus. No thoracic aortic aneurysm or dissection Emphysematous blebs in both upper lobes without a superimposed infiltrate or effusion, lingular atelectasis noted. 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 She had been taking flexeril and percocet at home without relief. She tried to call her PCP for a refill on flexeril but PCP was not the original prescriber. She rates the pain a 10/10 and describes it as sharp. She denies any known injury. Pain is not worsened by cough or deep breathing. Pertinent medical history includes stroke, DVT, Factor 5 mutation. Review of Systems Constitutional: Negative. Negative for fever. Respiratory: Positive for shortness of breath. Negative for cough and hemoptysis. Cardiovascular: Negative. Negative for chest pain. Musculoskeletal: Positive for back pain. Negative for falls. BP 110/70 Pulse 70 Temp 37 ?C (98.6 ?F) (Left Tympanic) Resp 20 Wt 104.8 kg (231 lb) SpO2 99% BMI 39.65 kg/m? PAST MEDICAL HISTORY Diagnosis Date - DVT (deep venous thrombosis) ([facility]) 2009 - Dysthymic disorder Depression (non-psychotic) - Reflex sympathetic dystrophy of the lower limb PAST SURGICAL HISTORY Procedure Laterality Date - DELIVERY ONLY X3 , low cervical - DANDC, DIAG AND/OR THERAPEUTIC Dilation AND curettage - KNEE SCOPE,DIAGNOSTIC 1996,1999 Arthroscopy, knee right X 2 - LAP CHOLECYSTECT/CHOLANGIOGRAPHY - PAST SURGICAL HISTORY OF 2004 removal spinal cord stimulator - PAST SURGICAL HISTORY OF right foot tendon release, - PAST SURGICAL HISTORY OF 07/2014 Left wrist, first dorsal compartment release - PAST SURGICAL HISTORY OF plantar fascitis - REPAIR INTERCARP/CARP-METACARP JT Left 06/29/2016 Left thumb CMC arthroplasty with ligament reconstruction and tendon interposition - REVISE MEDIAN N/CARPAL TUNNEL SURG Carpal tunnel decomp bilateral - S SPINAL CORD STIMULATOR, 1999 - TOTAL ABDOM HYSTERECTOMY Hysterectomy, IMTIAZ ALLERGIES Opioids - Morphine Analogues; Pentazocine; Propoxyphene; Steri Strips And Paper Tape [Other]; Talacen [Pentazocine-Acetaminophen] MEDICATIONS ALPRAZolam (XANAX) 1 mg tablet Take 1 tablet by mouth at bedtime as needed. aspirin (ZACK CHEWABLE ASPIRIN) 81 mg chewable tablet Take 81 mg by mouth once daily. atorvastatin (LIPITOR) 40 mg tablet Take 40 mg by mouth once daily. Besifloxacin (BESIVANCE) 0.6 % drps Use 1 Drop in the left eye three times daily. bimatoprost (LUMIGAN) 0.01 % drop ophthalmic drops Use 1 Drop in the left eye daily at bedtime. brinzolamide-brimonidine (SIMBRINZA) 1%-0.2 % Ophth Susp Use in the left eye three times daily. famotidine (PEPCID AC) 20 mg tablet Take 1 tablet by mouth twice daily. methadone 10 mg tablet Take 10 mg by mouth every 8 hours as needed. Take three tablets , three times daily .Pain Management Dr Bassett mycophenolate Mofetil (CELLCEPT) 500 mg tablet 1 tablet twice per day for 2 weeks then 2 tablet twice per day for 2 weeks then 3 tablets twice per day oxyCODONE-acetaminophen (PERCOCET) 5-325 mg tablet Take 1 tablet by mouth every 8 hours as needed for Pain. Pain Management Dr Bassett prednisoLONE acetate (PRED FORTE, ECONOPRED PLUS) 1 % ophthalmic suspension 1 Drop four times daily. predniSONE (DELTASONE) 20 mg tablet 60 mg daily for 2 weeks 50 mg for 2 weeks 40 mg for 2 weeks 30 mg for 2 weeks 20 mg for 2 weeks, 10 mg until follow-up timolol maleate (TIMOPTIC) 0.5 % ophthalmic solution 1 Drop twice daily. warfarin (COUMADIN) 2 mg tablet Take 2 tablets by mouth daily as directed. sulfamethoxazole-trimethoprim (BACTRIM DS) 800-160 mg per tablet Take 1 tablet by mouth every Saturday,Saturday,Saturday. FAMILY HISTORY Problem Relation Age of Onset - Cancer Mother lung/brain/pancreatic - Hypertension Father - Cancer Father Colon - Arthritis Father - Heart Sister no details MVP - Arthritis Brother - Stroke Paternal Grandfather - Multiple Sclerosis Sister - No Known Problems Brother Social History Substance Use Topics - Smoking status: Former Smoker Packs/day: 1.00 Years: 7.00 Types: Cigarettes Quit date: 01/06/1998 - Smokeless tobacco: Never Used - Alcohol use No Objective Physical Exam Constitutional: She is well-developed, well-nourished, and in no distress. Cardiovascular: Normal rate and regular rhythm. Pulmonary/Chest: Effort normal and breath sounds normal. No respiratory distress. She has no wheezes. She has no rales. Musculoskeletal: Thoracic back: She exhibits pain. She exhibits no tenderness and no bony tenderness. Back: Neurological: She is alert. Skin: Skin is warm and dry. No rash noted. Nursing note and vitals reviewed. ASSESSMENT/PLAN: 1. Upper back pain - ICD9: 724.5, ICD10: M54.9 (primary diagnosis) 2. SOB (shortness of breath) - ICD9: 786.05, ICD10: R06.02 - Patient was referred to ER for further evaluation due to new onset of shortness of breath. She has many risk factors for PE and this cannot be excluded in Express Care setting. Report called to attending ED physician and [facility]. PAM MeyersOV Observed: 02/22/2018 Status: COMPLETED Source: [place] 10:45 AM [facility] REPOSITORY Office Visit (WSTR) SOLISSTEPHANIE Steen Dayanna ([id number]) 1960 F Date Time Provider Department 02/22/18 10:45 AM YANY WHEAT (JOSE) [facility] During your visit today, we recorded the following information about you: Temperature Pulse Respiration Blood pressure 98.6 degrees 70/minute 20/minute 110/70 Weight 104.8 kg Yany Wheat APRN.CNP 02/22/2018 11:20 AM Signed Subjective HPI Stephanie Alan Teresa is a 57 year old female who presents with upper right sided back pain for the past week. She had been taking flexeril and percocet at home without relief. She tried to call her PCP for a refill on flexeril but PCP was not the original prescriber. She rates the pain a 10/10 and describes it as sharp. She denies any known injury. Pain is not worsened by cough or deep breathing. Pertinent medical history includes stroke, DVT, Factor 5 mutation. Review of Systems Constitutional: Negative. Negative for fever. Respiratory: Positive for shortness of breath. Negative for cough and hemoptysis. Cardiovascular: Negative. Negative for chest pain. Musculoskeletal: Positive for back pain. Negative for falls. BP 110/70 Pulse 70 Temp 37 ?C (98.6 ?F) (Left Tympanic) Resp 20 Wt 104.8 kg (231 lb) SpO2 99% BMI 39.65 kg/m? PAST MEDICAL HISTORY Diagnosis Date - DVT (deep venous thrombosis) ([facility]) 2009 - Dysthymic disorder Depression (non-psychotic) - Reflex sympathetic dystrophy of the lower limb PAST SURGICAL HISTORY Procedure Laterality Date - DELIVERY ONLY X3 , low cervical - DANDC, DIAG AND/OR THERAPEUTIC Dilation AND curettage - KNEE SCOPE,DIAGNOSTIC 1996,1999 Arthroscopy, knee right X 2 - LAP CHOLECYSTECT/CHOLANGIOGRAPHY - PAST SURGICAL HISTORY OF 2004 removal spinal cord stimulator - PAST SURGICAL HISTORY OF right foot tendon release, - PAST SURGICAL HISTORY OF 07/2014 Left wrist, first dorsal compartment release - PAST SURGICAL HISTORY OF plantar fascitis - REPAIR INTERCARP/CARP-METACARP JT Left 06/29/2016 Left thumb CMC arthroplasty with ligament reconstruction and tendon interposition - REVISE MEDIAN N/CARPAL TUNNEL SURG Carpal tunnel decomp bilateral - S SPINAL CORD STIMULATOR, 1999 - TOTAL ABDOM HYSTERECTOMY Hysterectomy, IMTIAZ ALLERGIES Opioids - Morphine Analogues; Pentazocine; Propoxyphene; Steri Strips And Paper Tape [Other]; Talacen [Pentazocine-Acetaminophen] MEDICATIONS ALPRAZolam (XANAX) 1 mg tablet Take 1 tablet by mouth at bedtime as needed. aspirin (ZACK CHEWABLE ASPIRIN) 81 mg chewable tablet Take 81 mg by mouth once daily. atorvastatin (LIPITOR) 40 mg tablet Take 40 mg by mouth once daily. Besifloxacin (BESIVANCE) 0.6 % drps Use 1 Drop in the left eye three times daily. bimatoprost (LUMIGAN) 0.01 % drop ophthalmic drops Use 1 Drop in the left eye daily at bedtime. brinzolamide-brimonidine (SIMBRINZA) 1%-0.2 % Ophth Susp Use in the left eye three times daily. famotidine (PEPCID AC) 20 mg tablet Take 1 tablet by mouth twice daily. methadone 10 mg tablet Take 10 mg by mouth every 8 hours as needed. Take three tablets , three times daily .Pain Management Dr Bassett mycophenolate Mofetil (CELLCEPT) 500 mg tablet 1 tablet twice per day for 2 weeks then 2 tablet twice per day for 2 weeks then 3 tablets twice per day oxyCODONE-acetaminophen (PERCOCET) 5-325 mg tablet Take 1 tablet by mouth every 8 hours as needed for Pain. Pain Management Dr Bassett prednisoLONE acetate (PRED FORTE, ECONOPRED PLUS) 1 % ophthalmic suspension 1 Drop four times daily. predniSONE (DELTASONE) 20 mg tablet 60 mg daily for 2 weeks 50 mg for 2 weeks 40 mg for 2 weeks 30 mg for 2 weeks 20 mg for 2 weeks, 10 mg until follow-up timolol maleate (TIMOPTIC) 0.5 % ophthalmic solution 1 Drop twice daily. warfarin (COUMADIN) 2 mg tablet Take 2 tablets by mouth daily as directed. sulfamethoxazole-trimethoprim (BACTRIM DS) 800-160 mg per tablet Take 1 tablet by mouth every Saturday,Saturday,Saturday. FAMILY HISTORY Problem Relation Age of Onset - Cancer Mother lung/brain/pancreatic - Hypertension Father - Cancer Father Colon - Arthritis Father - Heart Sister no details MVP - Arthritis Brother - Stroke Paternal Grandfather - Multiple Sclerosis Sister - No Known Problems Brother Social History Substance Use Topics - Smoking status: Former Smoker Packs/day: 1.00 Years: 7.00 Types: Cigarettes Quit date: 01/06/1998 - Smokeless tobacco: Never Used - Alcohol use No Objective Physical Exam Constitutional: She is well-developed, well-nourished, and in no distress. Cardiovascular: Normal rate and regular rhythm. Pulmonary/Chest: Effort normal and breath sounds normal. No respiratory distress. She has no wheezes. She has no rales. Musculoskeletal: Thoracic back: She exhibits pain. She exhibits no tenderness and no bony tenderness. Back: Neurological: She is alert. Skin: Skin is warm and dry. No rash noted. Nursing note and vitals reviewed. ASSESSMENT/PLAN: 1. Upper back pain - ICD9: 724.5, ICD10: M54.9 (primary diagnosis) 2. SOB (shortness of breath) - ICD9: 786.05, ICD10: R06.02 - Patient was referred to ER for further evaluation due to new onset of shortness of breath. She has many risk factors for PE and this cannot be excluded in Express Care setting. Report called to attending ED physician and [facility]. Yany Wheat APRN.HATCH TENDER Referring Provider: SELF [200] Allergies As of Date: 02/22/2018 Noted Allergy Reaction OPIOIDS - MORPHINE ANALOGUES 08/29/2000 Comments: vicodin PENTAZOCINE 08/29/2000 Comments: talwin PROPOXYPHENE 08/29/2000 Comments: daradonayet steri strips and paper tape [Othe*12/30/2006 TALCECE (PENTAZOCINE-ACETAMINOPHE*08/20/2005 1 - Mental Status Change Date Reviewed: 02/22/2018 Reviewed by: Yany ([facility]) Jarret - Fully Assessed Reason for Visit: Back Pain [12] Breathing Problem [17] Primary Visit Diagnosis:Upper back pain [M54.9] Other Visit Diagnosis:SOB (shortness of breath) [R06.02] Prescriptions as of 02/22/2018 Sig: ALPRAZOLAM 1 MG TABLET Take 1 tablet by mouth at bed* ASPIRIN 81 MG CHEWABLE TABLET Take 81 mg by mouth once jose eduardo* ATORVASTATIN 40 MG TABLET Take 40 mg by mouth once jose eduardo* BESIFLOXACIN 0.6 % EYE DROPS,* Use 1 Drop in the left eye th* BIMATOPROST 0.01 % EYE DROPS Use 1 Drop in the left eye da* BRINZOLAMIDE 1 %-BRIMONIDINE * Use in the left eye three domingo* FAMOTIDINE 20 MG TABLET Take 1 tablet by mouth twice * METHADONE 10 MG TABLET Take 10 mg by mouth every 8 h* MYCOPHENOLATE MOFETIL 500 MG * 1 tablet twice per day for 2 * OXYCODONE-ACETAMINOPHEN 5 MG-* Take 1 tablet by mouth every * PREDNISOLONE ACETATE 1 % EYE * 1 Drop four times daily. PREDNISONE 20 MG TABLET 60 mg daily for 2 weeks 50 mg* Patient taking differently: 20 mg once daily. TIMOLOL MALEATE 0.5 % EYE DENISSE* 1 Drop twice daily. WARFARIN 2 MG TABLET Take 2 tablets by mouth daily* SULFAMETHOXAZOLE 800 MG-TRIME* Take 1 tablet by mouth every * Problem List As Of Date 02/22/2018 Noted Resolved Reflex sympathetic dystrophy of lower limb [G90*INVALID FOR* More... NEURALGIA/NEURITIS NOS [DCB6255] INVALID FOR* MONONEURITIS LEG NOS [G57.90] INVALID FOR* DYSTHYMIC DISORDER [F34.1] More... ACUTE CHOLECYSTITIS [K81.0] INVALID FOR* Obesity [E66.9] INVALID FOR* De Quervain's tenosynovitis, left [M65.4] INVALID FOR* CMC arthritis [M19.049] INVALID FOR* Thumb pain [M79.646] INVALID FOR* Ischemic stroke of frontal lobe (HCC) [I63.9] INVALID FOR* Factor 5 Leiden mutation, heterozygous (HCC) [D*INVALID FOR* Anti-cardiolipin antibody positive [R76.8] INVALID FOR* More... Obesity, Class II, BMI 35-39.9 [E66.9] INVALID FOR* Vasculitis, MITTEN SEWER (HCC) [I77.6] INVALID FOR* More... Stenosis of right internal carotid artery [I65.*INVALID FOR* More... TIA (transient ischemic attack) [G45.9] INVALID FOR* More... Acute angle-closure glaucoma of left eye [H40.2*INVALID FOR* More... Sinus bradycardia [R00.1] INVALID FOR* More... Leukocytosis [D72.829] INVALID FOR*02/14/2018 More... Encounter Status:Closed by YANY WHEAT on 02/22/18 OT D/C SUMMARY Observed: 02/20/2018 Status: F Source: [place] 1:51 PM [facility] REPOSITORY [facility] Occupational Therapy Health[address] [place] [address] / REHABILITATION SERVICES DISCHARGE SUMMARY MR#: [id number] Acct: [id number] Name: STEPHANIE MOORE Rep #: [id number] : 1960 57 From: Joanna Arambula Referring Dr.: LESLIE Luke Status: REG RCR Eval Date: Discharge Date: HP - OT D/C Summary It has been my pleasure to treat STEPHANIE MOORE under orders from LESLIE Villanueva, for the diagnosis of Ischemic CVA for a total of 25 visit(s). Please see the following information for a summary of their discharge status. - Overall Improvement % Improvement: 99 - Objective Objective/Function: Completed reassessment with measurements as follows: Strength B UE: shoulder flexion: R 5/5/, L 5/5. supraspinatus: R 5/5/, L 5/5. elbow flexion: R 5/5/, L 5/5. elbow extension: R 5/5/, L 5/5. wrist extension R 5/5/, L 5/5. wrist flexion: R 5/5/, L 5/5. Movable Bulkhead Installer: R 66, L 52. lateral pinch : R 12, L 12. tripod pinch: R 13, L 9. pincer pinch: R 9, L 9. 9 hole pegboard test: R 19.83 seconds. L 29. 15 seconds. Purdue pegboard test: right hand : - trials 1: 13. - trials 2: 15. - Trials 3: 15. total: 43. percentile: 3rd. Left hand : - trials 1: 10. - trials 2: 13. - Trials 3: 11. Total:34. percentile: 2nd. Both hands: - trials 1: 10. - trials 2: 8. - Trials 3: 9. Total: 27. percentile: below 1st. R+L+Both. - trials 1: 33. - trials 2: 36. - Trials 3: 35. total: 74. percentile: below 1st. Assembly: - trials 1: 6. - trials 2: 4. - Trials 3: 6. Total: 16. percentile: below 1st. She has progress in all tasks since initial evaluation. - Goals Patient Goals: Regain Mobility, Regain Strength, Decrease Pain, Return to Work, Decrease Swelling/Stiffness, Improve Fine Motor Skills, Use Hand/Wrist/Arm Normally Again, Decrease Tingling/Numbness, Be More Independent in ADLS, Improve Visual/Perceptual Skills, Resume Former Household Responsibilities (Cooking,Cleaning,Yard, etc.), Resume Hobbies Goal:: Stephanie to increased L case packer to within 10 lbs of R case packer to promote manipulation of self care items e.g. opening jars by d/c. -GOAL MEANT Goal:: Stephanie to increased L hand dexterity through increased performance on Purdue Pegboard test to promote increased ability to manipulate small items within normal range of L hand by d/c. Goal:: Stephanie to complete sensory re-education training of L UE to promote increased perceived touch sensation to promote safety and decrease risk of injury to L UE as measurement through two point/monofilament test by d/c.- GOAL MEANT Goal:: Stephanie to be (i) to complete small item assembly for job like tasks 9/10 trials 90% of the time to promote returning to PLOF and ability to retrun to work. Goal:: Stephanie to be (i) to return to completing all ADLs/IADLs simple cooking tasks, fastners (bra hook and buttons) as well as simple chores to promote increased (I) and ability to complete ADL/IADLs 4/5 trials 80% of the time by d/c. 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 - Plan Plan: Stephanie was placed on medical hold for last two months due to multiple tests needing to be completed at [facility]. She has progressed in all measurements since initial evaluation. She will be d/c'd as medical complications remain but she is hoping to return to light duty work within 2-3 weeks. - D/C Information If there are questions or concerns regarding this patient's occupational therapy, please fell free to call me at [phone]. Thank you for the referral of this patient. Sincerely, Joanna Arambula <Electronically signed by Joanna Arambula > 02/20/18 1351 CC: LESLIE Luke; Anuj Hanson MD K[facility] Signed PROGRESS Observed: 02/20/2018 Status: COMPLETED Source: [place] 11:37 AM [facility] REPOSITORY HNO ID: [id number] Author: Jose Beltran Service: (none) Author Type: Physician Type: Progress Notes Filed: 02/20/2018 5:14 PM Note Text: Agree with plan as outlined below. Jose Beltran, DO COMP METABOLIC PANEL Collected: 02/20/2018 Status: F Source: [place] 9:25 AM [facility] REPOSITORY TYPE CODE TESTS RESULT OUT OF REFERENCE UNITS RANGE LAB TP 6.3-8.0 g/dL Protein, Total 6.3 LAB ALB 3.9-4.9 g/dL Albumin 3.9 LAB CA 8.5-10.2 mg/dL Calcium, Total 8.5 LAB TBIL 0.2-1.3 mg/dL Bilirubin, Total 0.2 LAB ALKP 34-123 U/L Alkaline Phosphatase 84 LAB AST 13-35 U/L AST 23 LAB GLU 74-99 mg/dL Glucose 94 Result Comment: The [place] Diabetes Association (ADA) provides guidance for cutoff values for fasting glucose and random glucose. The ADA defines fasting as no caloric intake for at least 8 hours. Fas ting plasma glucose results between 100 to 125 mg/dL indicate increased risk for diabetes (prediabetes). Fasting plasma glucose results greater than or equal to 126 mg/dL meet the criteria for diagnosis of diabetes. In the absence of unequivocal hyperglycemia, results should be confirmed by repeat testing. In a patient with classic symptoms of hyperglycemia or hyperglycemic crisis, random plasma glucose results greater than or equal to 200 mg/dL meet the criteria for diagnosis of diabetes. Reference: Standards of Medical Care in Diabetes 2016, [place] Diabetes Association. Diabetes Care. 2016.39(Suppl 1). LAB BUN 7-21 mg/dL BUN 15 LAB CRET 0.58-0.96 mg/dL Creatinine 0.64 LAB NA 136-144 mmol/L Sodium 141 LAB K 3.7-5.1 mmol/L Potassium 4.4 LAB CL 97-105 mmol/L Chloride High 107 LAB CO2 22-30 mmol/L CO2 22 LAB AGAP 9-18 mmol/L Anion Gap 12 LAB ALT 7-38 U/L ALT High 52 LAB GFRAA eGFR- Amer. >60 LAB GFRNAA . eGFR-All Other Races >60 Result Comment: eGFR (Estimated GFR) Units of measure: mL/min/1.73 meters squared eGFR is derived from the reexpressed MDRD Study equation using the following parameters: serum creatinine, age, gender and race. The creatinine assay has been calibrated to be traceable to IDMS. An eGFR <60 mL/min/1.73m2 for >3 months is consistent with chronic kidney disease. Refer to KDOQI guidelines for clinical interpretation. In patients with unstable renal function, e.g. those with acute kidney injury, the eGFR may not accurately reflect actual GFR. Performed By: #### CMP, CBCDIF #### [facility] [address] [place], [place] [address] CBC AND DIFFERENTIAL Collected: 02/20/2018 Status: F Source: [place] 9:25 AM [facility] REPOSITORY TYPE CODE TESTS RESULT OUT OF REFERENCE UNITS RANGE LAB WBC 3.70-11.00 k/uL WBC High 18.73 LAB RBC 3.90-5.20 m/uL RBC 4.13 LAB HGB 11.5-15.5 g/dL Hemoglobin 12.4 LAB HCT 36.0-46.0 % Hematocrit 38.5 LAB MCV 80.0-100.0 fL MCV 93.2 LAB MCH 26.0-34.0 pG MCH 30.0 LAB MCHC 30.5-36.0 g/dL MCHC 32.2 LAB RDWCV 11.5-15.0 % RDW-CV 14.4 LAB PLTCT 150-400 k/uL Platelet Count 312 LAB MPV 9.0-12.7 fL MPV 10.6 LAB ANEUT % Neut% 80.3 LAB AANEUT 1.45-7.50 k/uL Abs Neut High 15.04 LAB ALYMP % Lymph% 11.1 LAB AALYMP 1.00-4.00 k/uL Abs Lymph 2.08 LAB AMONO % [place]% 6.0 LAB AAMONO <0.87 k/uL Abs [place] High 1.12 LAB AEOS % Eosin% 0.0 LAB AAEOS <0.46 k/uL Abs Eosin 0.00 LAB ABASO % Baso% 0.0 LAB AABASO <0.11 k/uL Abs Baso 0.00 LAB AMYELO % Myelo% 2.6 LAB LFTIMI Left Shift Present LAB OVAIMI Ovalocytes Few LAB POLIMI Polychromasia Slight LAB PLTEST Platelet Estimate Platelet estimate adequate LAB DTYP DTYPE Manual Diff Performed By: #### CMP, CBCDIF #### [facility] [address] [place], [place] [address] PROGRESS Observed: 02/20/2018 Status: COMPLETED Source: [place] 9:18 AM [facility] REPOSITORY HNO ID: [id number] Author: Arlene Pacheco RN Service: (none) Author Type: (none) Type: Progress Notes Filed: 02/20/2018 9:19 AM Note Text: patient had inr completed at [facility] patients inr is 2.9 (patients inr range is 2.0-3.0) patient is currently taking 4mg daily patients last dose change was on 02/10/18 due to a high level of 3.6 (dose at that time was 5mg daily) patient has had no changes in medication (pt is still taking bactrim and predinsone and no change in diet Advised patient to continue on the same dose(s) and that they would only be contacted regarding dosage and follow up instructions after review with provider, if a change is needed. Written instructions given and patient verbalized understanding. Presently scheduled in 2 weeks (03/06/18) for follow up INR. JOSEN Observed: 02/20/2018 Status: COMPLETED Source: [place] 12:00 AM [facility] REPOSITORY Telephone (RHEUMN) STEPHANIE MOORE ([id number]) 1960 F Date Time Provider Department 02/20/18 PREETI CHÁVEZ (JOSE) NERIS During your visit today, we recorded the following information about you: Yasmeen Antelmo MCGUIRE 02/20/2018 1:01 PM Signed Patient has been identified by name and date of : Yes . Patient calling for :patient update. Patient had blood work done today and her INR was 2.9. She had her glands checked and it was found that the left side was swollen Pharmacy has been updated: Yes . Return call needed: Patient is expecting a call back. Can be reached at phone number listed below.. Patient can be reached at : [phone] (home) Preeti Chávez APRN.CNP 02/20/2018 5:03 PM Signed Spoke with pt. Reiterated instructions and med timing (from previous phone encounter) Reviewed available labs. Pt to update next wk PAM Ibarra APRN.CNP 02/26/2018 5:13 PM Signed From 02/19/18 phone encounter that does not seem to appear in [employer]. However able to find when I do a search in my epic inbasket: Spoke with pt. 32min phone call ? Didn't start pred 60mg taper until 02/02/18, hasn't tapered down yet, confused about dosing, reviewed calendar with pt. ? Pt calling today concerned that new back pain (x4 days but almost resolved sat all day in in-laws nice comfy recliner - suspect culprit of back pain) and new knee pain with localized swelling today is r/t cellcept. H/o dvt, no edema, both legs match. ? Also c/o swollen glands of the neck started yesterday. Denies fever/ chills. No URI. ? Labs ordered. ? Ok to currently hold cellcept until projected restart date of Feb 26, assuming ?cervical lymphadenopathy resolves. If persists, she will f/u with PCP. ? ? If any other problems will call office ? ? ? Preeti Chávez, CURRICULUM FACILITATOR.HATCH TENDER Allergies As of Date: 02/20/2018 Noted Allergy Reaction OPIOIDS - MORPHINE ANALOGUES 08/29/2000 Comments: vicodin PENTAZOCINE 08/29/2000 Comments: talwin PROPOXYPHENE 08/29/2000 Comments: darvacet steri strips and paper tape [Othe*12/30/2006 TALACEN (PENTAZOCINE-ACETAMINOPHE*08/20/2005 1 - Mental Status Change Date Reviewed: 02/13/2018 Reviewed by: Bryon ([place]) CLAYTON Lopez - Fully Assessed Reason for Visit: Patient Update [1234] Prescriptions as of 02/20/2018 Sig: ALPRAZOLAM 1 MG TABLET Take 1 tablet by mouth at bed* ASPIRIN 81 MG CHEWABLE TABLET Take 81 mg by mouth once jose eduardo* ATORVASTATIN 40 MG TABLET Take 40 mg by mouth once jose eduardo* BESIFLOXACIN 0.6 % EYE DROPS,* Use 1 Drop in the left eye th* BIMATOPROST 0.01 % EYE DROPS Use 1 Drop in the left eye da* BRINZOLAMIDE 1 %-BRIMONIDINE * Use in the left eye three domingo* FAMOTIDINE 20 MG TABLET Take 1 tablet by mouth twice * METHADONE 10 MG TABLET Take 10 mg by mouth every 8 h* MYCOPHENOLATE MOFETIL 500 MG * 1 tablet twice per day for 2 * OXYCODONE-ACETAMINOPHEN 5 MG-* Take 1 tablet by mouth every * PREDNISOLONE ACETATE 1 % EYE * 1 Drop four times daily. PREDNISONE 20 MG TABLET 60 mg daily for 2 weeks 50 mg* Patient taking differently: 20 mg once daily. SULFAMETHOXAZOLE 800 MG-TRIME* Take 1 tablet by mouth every * TIMOLOL MALEATE 0.5 % EYE DENISSE* 1 Drop twice daily. WARFARIN 2 MG TABLET Take 2 tablets by mouth daily* Problem List As Of Date 02/20/2018 Noted Resolved Reflex sympathetic dystrophy of lower limb [G90*INVALID FOR* More... NEURALGIA/NEURITIS NOS [BWZ9110] INVALID FOR* MONONEURITIS LEG NOS [G57.90] INVALID FOR* DYSTHYMIC DISORDER [F34.1] More... ACUTE CHOLECYSTITIS [K81.0] INVALID FOR* Obesity [E66.9] INVALID FOR* De Quervain's tenosynovitis, left [M65.4] INVALID FOR* CMC arthritis [M19.049] INVALID FOR* Thumb pain [M79.646] INVALID FOR* Ischemic stroke of frontal lobe (HCC) [I63.9] INVALID FOR* Factor 5 Leiden mutation, heterozygous (HCC) [D*INVALID FOR* Anti-cardiolipin antibody positive [R76.8] INVALID FOR* More... Obesity, Class II, BMI 35-39.9 [E66.9] INVALID FOR* Vasculitis, MITTEN SEWER (HCC) [I77.6] INVALID FOR* More... Stenosis of right internal carotid artery [I65.*INVALID FOR* More... TIA (transient ischemic attack) [G45.9] INVALID FOR* More... Acute angle-closure glaucoma of left eye [H40.2*INVALID FOR* More... Sinus bradycardia [R00.1] INVALID FOR* More... Leukocytosis [D72.829] INVALID FOR*02/14/2018 More... Encounter Status:Closed by PREETI CHÁVEZ CNP on 02/20/18 PROGRESS Observed: 02/14/2018 Status: COMPLETED Source: [place] 5:00 PM [facility] REPOSITORY HNO ID: [id number] Author: Jaime Solis Service: Radiology Author Type: Physician Type: Progress Notes Filed: 02/14/2018 6:33 PM Note Text: [facility] STAFF PHYSICIAN NOTE OF PERSONAL INVOLVEMENT IN CARE ? 57 year old female with multiple vascular risk factors, complex medical history, previous stroke and known intracranial vascular stenosis, who presented with transient left facial droop and left-sided weakness during an ophthalmological procedure on 02/11/18. It is unclear she had any blood pressure dropped during the procedure. She is back to normal. She has been taking aspirin and Coumadin, and prednisone, although self discontinued 5 days before admission Prior extensive workup detailed in previous notes, including provoked DVT, right MCA stroke, right ICA terminus stenosis, +JAMES, +LAC, LDL 138, A1c 5.[address] on 02/13 shows no new changes 02/14 SPECT decreased reserve in right MCA Outside CT angiogram compared with October 2017 [facility] CT angiogram: No significant changes in the severe right supraclinoid stenosis were found ? IMP: 1. Transient left-sided weakness, possible TIA versus stroke versus exacerbation of prior symptoms 2. Right supraclinoid ICA severe stenosis of unclear etiology 3. Prior stroke 4. Positive immunologic markers and lupus anticoagulant 5. ?Afib or arrhythmia on telemetry - on AC 6. glaucoma ? PLAN: CT without acute disease Immunotherapy and outpt f/u with Rheumatology and Dr. Macdonald Statin continue Coumadin and prednisone D/C today, stroke education provided ? SIGNATURE: Jaime Solis MD February 14, 2018 CNDS Observed: 02/14/2018 Status: COMPLETED Source: [place] 4:25 PM [facility] REPOSITORY [facility] ID: [id number] Author: Jaime Solis Service: Neurology Stroke Author Type: Physician Type: Discharge Summaries Filed: 02/14/2018 7:24 PM Note Text: DISCHARGE SUMMARY NEURO STROKE PATIENT NAME: Stephanie Moore ADMISSION DATE: 02/12/2018 DISCHARGE DATE: 02/14/18 Attending Physician: Jaime Solis PCP: ANUJ HANSON MD Code Status: Not on file Highest Readmission Risk Score: 7 The 30 day readmissions risk score is derived from an internally validated risk model which evaluates patient level characteristics, utilization history, medication orders and lab results up until the day of discharge. Patients with a score of 40 or above are considered highest risk for readmission. Specific patient level drivers will be listed at the bottom of the summary. Reason for Hospitalization: TIA Principal Problem: TIA (transient ischemic attack) Active Problems: Reflex sympathetic dystrophy of lower limb Anti-cardiolipin antibody positive Obesity, Class II, BMI 35-39.9 Stenosis of right internal carotid artery Acute angle-closure glaucoma of left eye Sinus bradycardia Resolved Problems: Leukocytosis Operations During Hospitalization: None Procedures During Hospitalization: CT brain 02/12/18 IMPRESSION: No acute intracranial process. Chronic changes of right frontal lobe infarct, possibly watershed distribution the border between right MCA and KARLEY territories, not significantly changed. ? TCD bubble 02/12/18 IMPRESSION: The examination was somewhat limited by the patient's very poor temporal windows bilaterally. ?Multiple microembolic events were detected in the bilateral MCAs upon injection of 10 cc of agitated saline solution. ?The examination is positive for right to left shunt. Markedly diminished mean flow velocities in the right MCA (25 cm/sec) when compared with the left side (71 cm/sec) likely reflect the known severe disease proximally. Leg Ultrasound 02/12/18: IMPRESSION RIGHT SIDE - DEEP VEINS Negative for acute deep vein thrombosis. Normal color and pulsed Doppler signals noted; however, unable to compress the distal external iliac vein due to patient intolerance. LEFT SIDE - DEEP VEINS Negative for acute deep vein thrombosis. ? Diamox Spect Scan 02/14/18: IMPRESSION: THE SCAN DEMONSTRATE EVIDENCE OF REDUCTION OF CEREBROVASCULAR RESERVE IN THE RIGHT MCA TERRITORY. Initial NIHSS: 1 PHQ4 Total Score: 0 Stroke Mechanism: Stroke Risk Factors: Dyslipidemia Stroke Pre-diabetes Body Mass Index (BMI) Total Cholesterol (at time of admission) No results found for this basename: chol:1 HDL (at time of admission) No results found for this basename: hdl:1 LDL (at time of admission) No results found for this basename: ldl:1 HbA1c Hemoglobin A1C (%) Date Value 01/01/2018 5.8 Tests/Procedures Performed: CT brain 02/12/18 IMPRESSION: No acute intracranial process. Chronic changes of right frontal lobe infarct, possibly watershed distribution the border between right MCA and KARLEY territories, not significantly changed. ? TCD bubble 02/12/18 IMPRESSION: The examination was somewhat limited by the patient's very poor temporal windows bilaterally. ?Multiple microembolic events were detected in the bilateral MCAs upon injection of 10 cc of agitated saline solution. ?The examination is positive for right to left shunt. Markedly diminished mean flow velocities in the right MCA (25 cm/sec) when compared with the left side (71 cm/sec) likely reflect the known severe disease proximally. Leg Ultrasound 02/12/18: IMPRESSION RIGHT SIDE - DEEP VEINS Negative for acute deep vein thrombosis. Normal color and pulsed Doppler signals noted; however, unable to compress the distal external iliac vein due to patient intolerance. LEFT SIDE - DEEP VEINS Negative for acute deep vein thrombosis. ? Diamox Spect Scan 02/14/18: IMPRESSION: THE SCAN DEMONSTRATE EVIDENCE OF REDUCTION OF CEREBROVASCULAR RESERVE IN THE RIGHT MCA TERRITORY. Hospital Course: This is a 57 year old female who presented with L face droop/LUE weakness after near-syncopal episode during eye surgery PMH: DVT 2009 R MCA stroke R ICA stenosis HLP Reflex sympathetic dystrophy R knee on methadone/percocet s/p spinal nerve stimulator (explanted with retained wire) Patient developed severe bifrontal headache with blurred vision 02/08, presented to [place] ED and discharged, later went to Ophthalmology 02/09 and found to have acute angle closure glaucoma. Taken for procedure to reduce intraocular pressure. During the procedure she developed hypotension and had a near-syncopal episode; L facial droop and LUE weakness noted afterwards. Patient states she never noticed a new facial asymmetry and she may have residual deficit from prior stroke. Patient brought to [facility] for further evaluation. Patient has known supraclinoid R ICA stenosis and suffered a R MCA stroke in 08/2017. 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 Patient then seen by Dr. Holt who recommended cerebral angiogram and lumbar puncture (CSF studies show R 0, W 4, P 43, G 56 and elevated IgG index to 0.83). Angiogram showed superior supraclinoid ICA distal to the P-comm artery over a 3.1 mm length with a residual lumen measuring less than 1 mm diameter with reconstitution of the terminus and M1 middle cerebral artery. Endovascular intervention for the stenosis at that time was not recommended due to risks involved. Repeat Lupus anticoagulant is positive from 01/14, and cardiolipin Ab is 31. Patient seen by Behavioral Intervention Specialist Dr. Tommy Krishnamurthy 01/01 who felt that the patient should be started on immunosuppresion for possible vasculitis; patient started on prednisone taper (currently takes 20mg daily) and plan was to start Cellcept (unclear if this ever occurred). Seen by Stroke Neurologist Dr. Macdonald 01/01 and was continued on ASA 81, warfarin. Patient had returned to baseline by the time she arrived at [facility]; she was reporting improvement in headache and L eye pain, but did note blurry vision out of L eye that improved throughout her hospitalization. Due to a retained wire from her spinal stimulator she was unable to get an MRI to evaluate for evidence of cerebral infarction. A CT brain and a repeat were unremarkable. Transcranial doppler ultrasound performed and showed microemboli suggestive of right to left shunt. [place] LEOPOLDO report from 10/01/2017 states: Atrial septum: Borderline aneurysmal interatrial septum with possible small patent foramen ovale by color Doppler. No interatrial shunt was observed by Bubble study. Lower extremity Doppler showed no DVTs. Patient's hospital course complicated by leukocytosis up to 17; patient evaluated by Ophthalmology who found no evidence of endophthalmitis and patient had no other signs/symptoms of infection, WBC was downtrending by 02/14 and may have been caused by manipulation of L eye during surgery. Patient had brain Diamox SPECT on 02/14 which showed expected decreased cerebral reserve in R hemisphere. Patient was deemed stable for discharge to home. She will be started on Cellcept at discharge and prescription is available for pickup at her local pharmacy. She has follow up scheduled with Dr. Macdonald 03/[address] Tommy Krishnamurthy on 05/01. She will see Ophthalmology tomorrow, 02/15 and has an appointment for her PCP to have her INR checked next week . Consulting Teams During Hospitalization: Ophthalmology: Patient Condition @ Discharge: Stable Discharge Disposition: Home/Self Care Discharge Physical Exam: VITAL SIGNS: BP 119/72 Pulse (!) 53 Temp 37.1 ?C (98.8 ?F) (Oral) Resp 16 SpO2 96% GENERAL: Awake/easily arousable HEENT: conjunctival injection/hyperemia OS, iris asymmetric with defect present, otherwise normocephalic/atraumatic RESPIRATORY: Normal respiratory effort. Clear to auscultation without rhonchi, rales, wheezing. CARDIOVASCULAR: RRR, normal S1, S2 auscultated, no murmur present GI: Soft abdomen, nontender, nondistended without mass. No hepatosplenomegaly. Normal bowel sounds EXTREMITIES: No cyanosis, clubbing or edema. Good capillary refill. SKIN: Skin color, texture, turgor normal. No rashes or lesions. MUSCULOSKELETAL No joint swelling, deformity, or tenderness. MENTAL STATUS: Alert, oriented to person, place and time; language fluent/appropriate CRANIAL NERVES: pupils 5mm OS, 3mm OD, reactive OD, nonreactive OS, consensual light reflex intact OU, VFF, intact horizontal eye movements, face symmetric, no dysarthria MOTOR: No drift and Normal tone MOTOR STRENGTH: Upper and lower extremity 5/5 bilaterally REFLEXES: UE and LE reflexes are equal and reactive SENSATION: Intact light touch COORDINATION: Finger-to- nose-finger intact bilaterally GAIT: Not assessed NIHSS: 1(a). Mental Status - LOC 0 = Alert and Attentive 1(b). LOC Questions 0 = Correct age and month 1(c). LOC-Commands 0 = Both 2. Gaze 0 = Normal 3. Visual Garcia 0 = Full 4. Facial Weakness 0 = Normal 5(a). Left Arm 0 = No drift 5(b). Right Arm 0 = No drift 6(a). Left Leg 0 = No drift 6(b). Right Leg 0 = No drift 7. Ataxia 0 = Absent 8. Sensory 0 = Normal 9. Aphasia 0 = None 10. Dysarthria 0 = Absent 11. Neglect 0 = None NIHSS Total (0-42): 0 MODIFIED ERIK SCORE: 1 = No significant disability w/ symptoms. All usual activities/duties. Information Provided to Patient: Discharge instructions, medication list, follow up appointments Diet: Resume pre-hospital diet Activity: Resume pre-hospital activity Wound/Surgical Site Care: None ALLERGIES Allergen Reactions - Opioids - Morphine * vicodin - Pentazocine talwin - Propoxyphene darvacet - Steri Strips And Pa* - Talacen [Pentazocin* Mental Status Change Discharge Medications: Current Discharge Medication List CONTINUE these medications which have CHANGED warfarin (COUMADIN) 4 mg Take 4 mg by mouth daily as directed. Qty: 90 tablet Refills: 3 CONTINUE these medications which have NOT CHANGED ALPRAZolam (XANAX) 1 mg Take 1 mg by mouth at bedtime as needed. Refills: 0 aspirin 81 mg Take 81 mg by mouth once daily. atorvastatin (LIPITOR) 40 mg Take 40 mg by mouth once daily. Besifloxacin (BESIVANCE) 1 Drop Use 1 Drop in the left eye three times daily. bimatoprost (LUMIGAN) 1 Drop Use 1 Drop in the left eye daily at bedtime. brinzolamide-brimonidine (SIMBRINZA) 1%-0.2 % Ophth Susp Use in the left eye three times daily. famotidine (PEPCID) 20 mg Take 20 mg by mouth twice daily. Qty: 60 tablet Refills: 5 methadone (DOLOPHINE) 10 mg Take 10 mg by mouth every 8 hours as needed. Take three tablets , three times daily . Pain Management Dr Bassett oxyCODONE-acetaminophen (PERCOCET) 1 tablet Take 1 tablet by mouth every 8 hours as needed for Pain. Pain Management Dr Bassett prednisoLONE acetate (PRED FORTE, ECONOPRED PLUS) 1 Drop 1 Drop four times daily. predniSONE (DELTASONE) 20 mg tablet 60 mg daily for 2 weeks 50 mg for 2 weeks 40 mg for 2 weeks 30 mg for 2 weeks 20 mg for 2 weeks, 10 mg until follow-up Qty: 90 tablet Refills: 2 sulfamethoxazole-trimethoprim (BACTRIM DS,SEPTRA DS) 1 tablet Take 1 tablet by mouth every Saturday,Saturday,Saturday. Qty: 12 tablet Refills: 5 timolol maleate (TIMOPTIC) 1 Drop 1 Drop twice daily. mycophenolate Mofetil (CELLCEPT) 500 mg tablet 1 tablet twice per day for 2 weeks then 2 tablet twice per day for 2 weeks then 3 tablets twice per day Qty: 180 tablet Refills: 3 Future Appointments: Appointments for Next 60 Days Date Time Provider Location Dept Phone 02/14/2018 11:00 AM [facility] [phone] 02/20/2018 9:00 AM ANTICOAG [facility] [place] [phone] 03/14/2018 8:00 AM ANUJ HANSON [facility] [place] [phone] 03/27/2018 9:40 AM ASSESSMENT [facility] [place] [facility] [phone] 03/27/2018 10:00 AM ANNE MARIE MACDONALD [facility] [phone] This patient?s risk for 30-day readmission is determined using the following contributing drivers Pt variables contributing to increased readmission risk: 19 Most Recent BUN Result 12 Active Medication Orders 8.9 First Resulted Calcium During Admission 1 Insurance - Private Coverage TIME OF CARE: Discharge Management: I personally spent greater than 30 minutes involved in the discharge management of this patient. SIGNATURE: Shira Beyer DO PAGER: [phone] DATE: February 12, 2018 TIME: 2:22 PM CASE MANAGEM Observed: 02/14/2018 Status: COMPLETED Source: [place] 2:32 PM [facility] HNO ID: [id number] Author: Joyce Madison (Sw) Service: Care Management Author Type: Share Holder Type: Care Mgt Progress Note Filed: 02/14/2018 2:36 PM Note Text: CARE MANAGEMENT PROGRESS NOTE SERVICE DATE: 02/14/2018 SERVICE TIME: 2:30pm LOS: 2 days Opthalmology consult complete yesterday. Pt appears to have returned to baseline. Per medical team, pt anticipated to d/c home today with no PAC skilled needs identified. Pt has d/c transportation home via family auto. For any weekend questions or needs, contact pager #[phone]. SIGNATURE: GI Ramirez PATIENT NAME: Stephanie Moore DATE: February 14, 2018 TIME: 2:32 PM PAGER/CONTACT #: [phone] 12 LEAD ELECTROCARDIOGRAM Observed: 02/14/2018 Status: F Source: [place] 1:47 PM [facility] REPOSITORY [facility] Cardiovascular Services [address] [place] [id number] 12 Lead EKG 02/11/18 1906 MR#: [id number] Acct: [id number] Name: STEPHANIE MOORE Rep #: [id number] : 1960 57 From: Mayank Langford MD Attending Dr: Status: DEP ER Ordering Dr: Olivia Whitley MD Date: 02/11/18 Location: ED Sex: F C Admitted: Test Reason : STROKE Blood Pressure : / mmHG Vent. Rate : 050 BPM Atrial Rate : 050 BPM P-R Int : 116 ms QRS Dur : 078 ms QT Int : 428 ms P-R-T Axes : 008 002 040 degrees QTc Int : 390 ms Sinus bradycardia Minimal voltage criteria for LVH, may be normal variant Borderline ECG Confirmed by ANDRE BRENNAN, MAYANK ([id number]), continuity editor GRACE WALTERS ([id number]) on 02/14/2018 1:47:23 PM Referred By: [place] Confirmed By:MAYANK LANGFORD MD 02/14/18 1347 Date Mayank Langford MD CC: Anuj Hanson MD; Olivia Whitley MD Signed NM BRAIN SPECT Observed: 02/14/2018 Status: F Source: [place] 1:14 PM [facility] REPOSITORY * * *Final Report* * * DATE OF EXAM: Feb 14 2018 1:14PM N 0067 - NM BRAIN SPECT / PROCEDURE REASON: Stroke, follow up * * * * Physician Interpretation * * * * DIAMOX CEREBRAL PERFUSION SPECT STUDY CLINICAL HISTORY: Cerebrovascular disease. Assess cerebrovascular reserve. TECHNIQUE: Pre-Diamox: [employer]arm[employer]: 14.3 mCi Tc-99m Neurolite, IV. Images acquired: SPECT images of the brain in 15 minutes. Diamox Injection: 1g, IV slow injection over 2 minutes. Post-Diamox: [employer]iopharmaceuticals: 25 mCi Tc-99m Neurolite, IV. Images acquired: SPECT images of the brain in 15 minutes. The patient's medications and allergies were reviewed in electronic medical record and reconciled to the proposed procedure/treatment. COMPARISON: none RESULT: The baseline cerebral perfusion SPECT study demonstrates focal perfusion defect in the right dorsal frontal regions, consistent with previous infarction. Following Diamox there is lack of proportional perfusion augmentation in response to the Diamox in the residual right frontal, parietal and temporal regions, right basal structure as compared to the rest of the cerebral cortex, which suggest compromise of cerebrovascular reserve in the territory of right MCA. IMPRESSION: THE SCAN DEMONSTRATE EVIDENCE OF REDUCTION OF CEREBROVASCULAR RESERVE IN THE RIGHT MCA TERRITORY. 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 Transcribe Date/Time: Feb 14 2018 2:11P Dictated by : CLARY JAIN MD This examination was interpreted and the report reviewed and electronically signed by: CLARY JAIN MD on Feb 14 2018 2:15PM EST [id number] PROGRESS Observed: 02/14/2018 Status: COMPLETED Source: [place] 12:09 PM [facility] REPOSITORY HNO ID: [id number] Author: Jillian Bauer (Rt) Service: (none) Author Type: Zipper Machine Operator Type: Progress Notes Filed: 02/14/2018 12:25 PM Note Text: RADIOLOGY SERVICE PROGRESS NOTE SERVICE DATE: 02/14/2018 SERVICE TIME: 12:09 PM PATIENT IDENTITY VERIFICATION COMPLETED USING TWO (2) METHODS: Patient confirmed name and Date of verbally. PATIENT GENDER DATA: .female : No ALLERGIES: Reviewed and unchanged MEDICATIONS REVIEWED: Yes PATIENT RELEVANT IMPLANT DATA REVIEWED: Not Applicable CREATININE: Creatinine Date Value Ref Range Status 02/14/2018 0.82 0.58 - 0.96 mg/dL Final 02/13/2018 0.80 0.58 - 0.96 mg/dL Final 02/12/2018 0.79 0.58 - 0.96 mg/dL Final eGFR-All Other Races Date Value Ref Range Status 02/14/2018 >60 . Final Comment: eGFR (Estimated GFR) Units of measure: mL/min/1.73 meters squared eGFR is derived from the reexpressed MDRD Study equation using the following parameters: serum creatinine, age, gender and race. The creatinine assay has been calibrated to be traceable to IDMS. An eGFR <60 mL/min/1.73m2 for >3 months is consistent with chronic kidney disease. Refer to KDOQI guidelines for clinical interpretation. In patients with unstable renal function, e.g. those with acute kidney injury, the eGFR may not accurately reflect actual GFR. eGFR- Date Value Ref Range Status 02/14/2018 >60 Final P.O.C.T. RESULTS: N/A February 14, [address] PERFORMED: No IV SITE: Inpatient - refer to LDA documentation POST EXAM PIV STATUS: Inpatient see LDA documentation PROCEDURE TYPE: Diamox Brain SPECT: 14.3 mCi Tc99m Neurolite was administered IV for pre-Diamox imaging at 1134. After the administration of 1 g of Diamox at 1205, 25 mCi Tc99m Neurolite was administered IV at 1225 for post-Diamox imaging. PATIENT DISCHARGED TO: Patient taken to IP transport area for return to RNF/ICU/ED. A Diagnostic radioactive procedure has taken place, with no further precautions necessary other than routine body substance precautions. More information regarding radiation safety can be found using this link: [email or web address] SIGNATURE: RT Lizette PATIENT NAME: Stephanie Moore DATE: February 14, 2018 TIME: 12:09 PM PAGER/CONTACT #: CBC Collected: 02/14/2018 Status: F Source: [place] 5:47 AM [facility] REPOSITORY TYPE CODE TESTS RESULT OUT OF REFERENCE UNITS RANGE LAB WBC 3.70-11.00 k/uL WBC High 11.14 LAB RBC 3.90-5.20 m/uL RBC 4.13 LAB HGB 11.5-15.5 g/dL Hemoglobin 12.0 LAB HCT 36.0-46.0 % Hematocrit 37.1 LAB MCV 80.0-100.0 fL MCV 89.8 LAB MCH 26.0-34.0 pG MCH 29.1 LAB MCHC 30.5-36.0 g/dL MCHC 32.3 LAB RDWCV 11.5-15.0 % RDW-CV 13.6 LAB PLTCT 150-400 k/uL Platelet Count 211 LAB MPV 9.0-12.7 fL MPV 10.0 LAB ABSNUC <0.01 k/uL Absolute nRBC <0.01 Performed By: #### CBC, PT, CMP #### [facility] [address] [place], [place] [address] PROTIME Collected: 02/14/2018 Status: F Source: [place] 5:47 AM [facility] REPOSITORY TYPE CODE TESTS RESULT OUT OF RANGE REFERENCE UNITS LAB PSEC 9.7-13.0 sec High PT Sec 14.1 LAB INR 0.9-1.3 High PT INR 1.4 Result Comment: Vitamin K Antagonist (VKA) Therapeutic Range: INR 2 to 3 (Target INR of 2.5) Note: For patients treated with VKA drugs, such as warfarin, the [place] [employer] 2012 Guideline recommends a therapeutic INR range of 2 to 3 (target INR of 2.5). This recommendation includes high-risk patients with antiphospholipid syndrome with previous arterial or venous thromboembolism, current-generation mechanical or bioprosthetic aortic heart valve replacement. Note: Patients with mechanical aortic valve replacement and additional risk factors for thromboembolic events (atrial fibrillation, previous thromboembolism, LV dysfunction, hypercoagulable conditions) or an older generation mechanical AVR (i.e., ball in-Cage) or any mechanical MVR should have a INR therapeutic range of 2.5 to 3.5 (target INR of 3). Terrance GH, et al. Chest 2012, 141:7S-47S Katya RA, et al. [facility] 2017, 70: 252-289 Performed By: #### CBC, PT, CMP #### [facility] [address] [place], [place] [address] COMP METABOLIC PANEL Collected: 02/14/2018 Status: F Source: [place] 5:47 AM [facility] REPOSITORY TYPE CODE TESTS RESULT OUT OF REFERENCE UNITS RANGE LAB TP 6.3-8.0 g/dL Low Protein, Total 6.1 LAB ALB 3.9-4.9 g/dL Low Albumin 3.4 LAB CA 8.5-10.2 mg/dL Calcium, Total 8.6 LAB TBIL 0.2-1.3 mg/dL Bilirubin, Total 0.7 LAB ALKP 34-123 U/L Alkaline Phosphatase 60 LAB AST 13-35 U/L AST 33 LAB GLU 74-99 mg/dL Glucose 78 Result Comment: The [place] Diabetes Association (ADA) provides guidance for cutoff values for fasting glucose and random glucose. The ADA defines fasting as no caloric intake for at least 8 hours. Fas ting plasma glucose results between 100 to 125 mg/dL indicate increased risk for diabetes (prediabetes). Fasting plasma glucose results greater than or equal to 126 mg/dL meet the criteria for diagnosis of diabetes. In the absence of unequivocal hyperglycemia, results should be confirmed by repeat testing. In a patient with classic symptoms of hyperglycemia or hyperglycemic crisis, random plasma glucose results greater than or equal to 200 mg/dL meet the criteria for diagnosis of diabetes. Reference: Standards of Medical Care in Diabetes 2016, [place] [employer] Association. Diabetes Care. 2016.39(Suppl 1). LAB BUN 7-21 mg/dL BUN 18 LAB CRET 0.58-0.96 mg/dL Creatinine 0.82 LAB NA 136-144 mmol/L Sodium 140 LAB K 3.7-5.1 mmol/L Potassium 3.9 LAB CL 97-105 mmol/L Chloride High 107 LAB CO2 22-30 mmol/L CO2 23 LAB AGAP 9-18 mmol/L Anion Gap 10 LAB ALT 7-38 U/L ALT High 69 LAB GFRAA eGFR- Amer. >60 LAB GFRNAA . eGFR-All Other Races >60 Result Comment: eGFR (Estimated GFR) Units of measure: mL/min/1.73 meters squared eGFR is derived from the reexpressed MDRD Study equation using the following parameters: serum creatinine, age, gender and race. The creatinine assay has been calibrated to be traceable to IDMS. An eGFR <60 mL/min/1.73m2 for >3 months is consistent with chronic kidney disease. Refer to KDOQI guidelines for clinical interpretation. In patients with unstable renal function, e.g. those with acute kidney injury, the eGFR may not accurately reflect actual GFR. Performed By: #### CBC, PT, CMP #### [facility] [address] [place] [id number] CONSULT Observed: 02/13/2018 Status: COMPLETED Source: [place] 5:45 PM [facility] REPOSITORY HNO ID: [id number] Author: Dave Washington Service: Ophthalmology Author Type: Physician Type: Consults Filed: 02/13/2018 5:45 PM Note Text: Full evaluation can be seen in clinic note Assessment/Plan ? 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 I have confirmed and edited as necessary the relevant ophthalmic history, ROS, and the neuro exam findings as obtained by others. I have seen and examined this patient. I have discussed the case and the management of this patient's care with the Resident/Fellow, if applicable. I also have reviewed and agree with the assessment and plan as stated above and agree with all of its relevant components. 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 I have seen and examined this patient. I have discussed the case and the management of this patient's care with the Resident/Fellow, if applicable. I also have reviewed and agree with the assessment and plan as stated above and agree with all of its relevant components. Semaj Washington MD February 13, 2018 5:[address] BRAIN WO IVCON Observed: 02/13/2018 Status: F Source: [place] 4:29 PM [facility] REPOSITORY * * *Final Report* * * DATE OF EXAM: Feb 13 2018 4:29PM [facility] [place] - CT BRAIN WO IVCON / PROCEDURE REASON: TIA, initial exam * * * * Physician Interpretation * * * * EXAMINATION: CT BRAIN WO IVCON CLINICAL HISTORY: TIA TECHNIQUE: Serial axial images without IV contrast were obtained from the vertex to the foramen magnum. MQ: [id number] CT Dose-Length Product (DLP): 780 mGy*cm CT Dose Reduction Employed: No dose reduction techniques were required COMPARISON: CT head 02/12/18 RESULT: Post-operative change: None. Acute change: No evidence of an acute infarct or other acute parenchymal process. Hemorrhage: No evidence of acute intracranial hemorrhage. Mass Lesion / Mass Effect: There is no evidence of an intracranial mass or extraaxial fluid collection. No significant mass effect. Chronic change: Again seen are areas of encephalomalacia in the region of the right superior frontal and right middle frontal gyri extending to the right orbital frontal gyrus, likely due to remote infarcts, perhaps watershed between the KARLEY and MCA territories. Parenchyma: There is mild generalized volume loss. Ventricles: Ventricular enlargement concordant with the degree of parenchymal volume loss. Paranasal sinuses and skull base: The visualized paranasal sinuses are grossly clear. The skull base and imaged soft tissues are unremarkable. IMPRESSION: No acute intracranial process by CT. No acute intracranial hemorrhage. Chronic findings as described including remote infarcts, unchanged. 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 Engine Mechanic: SAM Transcribe Date/Time: Feb 13 2018 4:35P Dictated by : KEE ROGERS MD This examination was interpreted and the report reviewed and electronically signed by: KEE ROGERS MD on Feb 13 2018 4:39PM EST [id number] PROGRESS Observed: 02/13/2018 Status: COMPLETED Source: [place] 4:24 PM [facility] REPOSITORY HNO ID: [id number] Author: Isabella Abrams Service: (none) Author Type: (none) Type: Progress Notes Filed: 02/13/2018 4:24 PM Note Text: Radiology Service Progress Note PATIENT NAME: Stephanie Moore DATE OF SERVICE: February 13, 2018 TIME: 4:24 PM PATIENT IDENTITY VERIFICATION COMPLETED USING TWO (2) METHODS: Patient confirmed name verbally and ID band matches.. PATIENT GENDER DATA: Female. status: : No status: NO. PATIENT RELEVANT IMPLANT DATA REVIEWED: Yes RADIOLOGY DEPARTMENT: CT; Exam(s) Completed: Brain PERIPHERAL IV DATA: Not applicable SIGNED BY: Isabella Abrams February 13, 2018 4:24 PM CASE MGT INIT Observed: 02/13/2018 Status: COMPLETED Source: [facility] 4:22 PM [facility] REPOSITORY HNO ID: [id number] Author: Joyce Madison (Sw) Service: Care Management Author Type: Share Holder Type: Care Mgt Initial Assessment Filed: 02/13/2018 4:26 PM Note Text: CARE MANAGEMENT: ASSESSMENT AND DISCHARGE PLAN SERVICE DATE: 02/13/2018 SERVICE TIME: 3:30pm PRIMARY CARE PHYSICIAN: ANUJ HANSON MD ADMISSION STATUS: Inpatient Needs Prior to Discharge: To Be Determined 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 No Advance Directive: Current Advance Directive: None Home Care Giver Attempted to Assist with AD Completion: Yes Action: Education Provided Health Literacy: 1. How often do you need to have someone help you when you read instructions, pamphlets, or other written material from your doctor or pharmacy? Never - 1 2. How confident are you filling out medical forms by yourself? Extremely - 1 If Patient scores > 3 on either question, the following interventions were put into place: Patient did not score > 3 FUNCTIONAL AND COGNITIVE/BEHAVIORAL PRIOR TO ADMISSION: Baseline Mental Status: Alert AND Oriented, Person, Place , Time and Situation Functional Status: Independent Does Patient Currently Receive Any Community Services or Home Care? None Equipment Prior to Admission: None Has the Patient Been in a Senior Living Facility in the Past 30 days? No SOCIAL: Living Arrangement: Home Lives With: Spouse Financial Resources: Disabled Primary Contact: Extended Emergency Contact Information Primary Emergency Contact: Davian Moore Gilchrist Relation: Spouse Supportive: Yes Other Important Patient Contacts: None Caregiver Assessment: Caregiver is ready, willing and able to meet the patient's needs as recommended by the inter-professional team? No Caregiver Needed Patient's transition needs and plan for meeting these needs: Pt anticipated to d/c home with no skilled PAC needs identified Does the patient have an acute stroke diagnosis, or has the patient had a stroke during this admission? Yes Medication Adherence: I am convinced of the importance of my prescription medication: Agree completely - 0 I worry that my prescription medication will do more harm than good to me Disagree completely - 0 I feel financially burdened by my [id number] expenses for my prescription medication: Disagree completely - 0 Patient is categorized as low risk < 2 Are you interested in bedside delivery of your medications? Yes Food Concerns: In the Last Month, Have You had Trouble Getting Food? No trouble getting food During the Last Month, Have You Worried Whether Your Food Would Run Out Before You Had Enough Money to Buy More? No Is the Patient Psychosocially Complex? No ASSESSMENT AND PLAN: Medical Needs: Stroke/Cognitive defects Psychosocial Needs: None FREEDOM OF CHOICE EXPLAINED: N/A POTENTIAL TRANSITION PLANS No Services Indicated Pt admitted from home, dx TIA. Pt reports being independent [employer] with no DME use. Per medical team. Pt anticipated to d/c home tomorrow with no PAC skilled needs identified. Pt has d/c transportation home via family auto. Floor CM to continue to follow. For any questions or concerns please contact the listed below. SIGNATURE: GI Ramirez PATIENT NAME: Stephanie Moore DATE: February 13, 2018 TIME: 4:22 PM PAGER/CONTACT #: [phone] PLAN OF CARE Observed: 02/13/2018 Status: COMPLETED Source: [place] 2:48 PM [facility] REPOSITORY HNO ID: [id number] Author: Mata Lopes ([place]inoor Operator) Service: (none) Author Type: (none) Type: Plan of Care Filed: 02/13/2018 2:48 PM Note Text: [facility] BEDSIDE DELIVERY SURVEY 1. Patient to use [facility] Bedside Delivery - YES 2. If fax, patient would like us to fax prescriptions to Pharmacy of choice a. Pharmacy: b. Location: c. Phone: 3. Insurance card on file - YES 4. Credit card for payment - N/A No prescriptions yet. Please page [phone] upon discharge. PROGRESS Observed: 02/13/2018 Status: COMPLETED Source: [place] 9:05 AM [facility] REPOSITORY HNO ID: [id number] Author: Jaime Solis Service: Neurology Stroke Author Type: Physician Type: Progress Notes Filed: 02/13/2018 6:21 PM Note Text: PROGRESS NOTE NEURO STROKE SERVICE DATE: 02/13/2018 SERVICE TIME: 9:05 AM Subjective INTERVAL HISTORY: Asymptomatic bradycardia overnight (HR 52 on EKG), resolved this AM Headache improved after DOWELL cocktail MEDICATIONS Current hospital medications: aspirin 81 mg chewable tab(s) 81 mg ORAL DAILY atorvastatin 40 mg tab(s) (LIPITOR) 40 mg ORAL AT BEDTIME Besifloxacin 0.6 % drps 1 Drop ophthalmic suspension (BESIVANCE) 1 Drop LEFT EYE QID bimatoprost 0.01 % 1 Drop (LUMIGAN) 1 Drop LEFT EYE AT BEDTIME brinzolamide-brimonidine 1%-0.2 % drps 1 Drop 1 Drop LEFT EYE BID carboxymethylcellulose sodium 1-2 Drop (CELLUVISC) 1-2 Drop RIGHT EYE PRN famotidine 20 mg tab(s) (PEPCID) 20 mg ORAL BID methadone 10 mg tab(s) (DOLOPHINE) 10 mg ORAL TID oxyCODONE-acetaminophen 5-325 mg 1 tablet (PERCOCET) 1 tablet ORAL q 8 H PRN prednisoLONE acetate 1 % 1 Drop (PRED FORTE, ECONOPRED PLUS) 1 Drop LEFT EYE QID predniSONE 20 mg tab(s) (DELTASONE) 20 mg ORAL DAILY sulfamethoxazole-trimethoprim 800-160 mg 1 tablet (BACTRIM DS,SEPTRA DS) 1 tablet ORAL timolol maleate 0.5 % 1 Drop (TIMOPTIC) 1 Drop LEFT EYE BID warfarin 4 mg tab(s) (COUMADIN) 4 mg ORAL DAILY - WARFARIN Objective PHYSICAL EXAM Vital Signs: BP 108/57 Pulse 62 Temp 36.9 ?C (98.4 ?F) (Oral) Resp 16 SpO2 98% GENERAL: Awake/easily arousable HEENT: conjunctival injection/hyperemia OS, iris asymmetric with defect present, otherwise normocephalic/atraumatic RESPIRATORY: Normal respiratory effort. Clear to auscultation without rhonchi, rales, wheezing. CARDIOVASCULAR: RRR, normal S1, S2 auscultated, no murmur present GI: Soft abdomen, nontender, nondistended without mass. No hepatosplenomegaly. Normal bowel sounds EXTREMITIES: No cyanosis, clubbing or edema. Good capillary refill. SKIN: Skin color, texture, turgor normal. No rashes or lesions. MUSCULOSKELETAL No joint swelling, deformity, or tenderness. NEUROLOGICAL: LOC: 0 - alert and responsive 0 LOC Questions: 0 - both correct 0 LOC Commands: 0 - both correct 0 LOC Normal Gaze: 0 - normal gaze 0 Visual Garcia: 0 - no visual loss 0 Facial Palsy: 1 - minor paralysis (normal looking face, asymmetric smile) (L lower) 1 (L lower) Motor Left Arm: 0 - no drift 0 Motor Right Arm: 0 - no drift 0 Motor Left Le - no drift 0 Motor Right Le - no drift 0 Limb Ataxia: 0 - no ataxia (or aphasic, hemiplegic) 0 Sensory: 0 - normal 0 Language: 0 - normal 0 Dysarthria: 0 - normal 0 Extinction/Neglect: 0 - normal, none detected (or visual loss alone) 0 Total Daily NIHSS: 1 (02/13/18 0904 : Shira Beyer) 1 MENTAL STATUS: Alert, oriented to person, place and time; language fluent/appropriate CRANIAL NERVES: pupils 7mm OS, 3mm OD, reactive OD, nonreactive OS, consensual light reflex intact OU, VFF, intact horizontal eye movements, flattened L nasolabial fold, no dysarthria MOTOR: No drift and Normal tone MOTOR STRENGTH: Upper and lower extremity 5/5 bilaterally REFLEXES: UE and LE reflexes are equal and reactive SENSATION: Intact light touch COORDINATION: Finger-to- nose-finger intact bilaterally GAIT: Not assessed DATA: Diagnostic tests reviewed for today's visit: CMP, CBC, Coags Recent Labs 02/13/18 0646 02/12/18 0705 NA 138 135* K 3.9 4.1 CHLOR 105 99 CO2 22 20* BUN 19 19 CREAT 0.80 0.79 GLUC 83 165* CA 8.1* 8.9 MG -- 2.3 P -- 4.2 WBC 17.03* 12.32* HB 12.4 14.0 HCT 38.2 43.6 PLT 230 281 INR 1.6* 2.3* APTT -- 37.0* Most recent labs and imaging results. MEDICAL EVENTS: No medical events have been recorded. STROKE 9 CARE AND PREVENTION CHECKLIST 1. Is the patient currently on an ANTITHROMBOTIC medication (Antiplatelet or Anticoagulant): Aspirin (will start warfarin) 2. Does the patient have known AFIB/FLUTTER: No 3. Is the patient on a STATIN: Atorvastatin 40 mg 4. Is the patient on VTE prophylaxis: Mechanical prophylaxis Mechanical intervention type: Intermittent compression stocking(s) 5. GLYCEMIC Control Medications: Not Diabetic 6. Stroke BP Goals: SBP 130-160 Stroke BP Control: BP well controlled 7. Stroke IVF/Nutrition: Diet 8. TEMPERATURE Control: Normothermic 9. Does the patient need THERAPY: No Reason for no therapy orders: Patient is at baseline, no therapy needed Stroke Care and Prevention (personally reviewed by Shira Beyer DO): Daily Rounding Date: 02/13/18 Daily Rounding Time: 904 PROBLEM LIST: Principal Problem: TIA (transient ischemic attack) POA: Yes Active Problems: Reflex sympathetic dystrophy of lower limb POA: Yes Anti-cardiolipin antibody positive POA: Yes Obesity, Class II, BMI 35-39.9 POA: Yes Stenosis of right internal carotid artery POA: Yes Acute angle-closure glaucoma of left eye POA: Yes Sinus bradycardia POA: No Leukocytosis POA: Yes Resolved Problems: * No resolved hospital problems. * Assessment/Plan Stephanie L Scheibe is a 57 year old female with PMH of DVT in 2010, depression, recent R MCA stroke(without residual deficits) and positive Lupus anticoagulant and Factor V leiden heterozygous, on Coumadin, steroids and cellcept for possible vasculitis, HLD on lipitor 40mg, RSD of R knee on Methodone and percocet, who had a near syncope episode in the opthalmology office, and found to have new LFD and weakness, in the setting of known R ICA stenosis, is transferred from [place] ED for further management. Currently back to baseline with mild LFD. Stroke Mechanism Total Daily NIHSS: 1 PLAN Neurology * TIA (transient ischemic attack) Assessment AND Plan L FD + LUE weakness in setting of johnnie-procedural hypotension and known stenosis of R supraclinoid ICA Appears to be back to baseline Follows with Dr. Macdonald + Dr. Tommy Krishnamurthy for vasculitis vs hypercoagulable state Assessment: Likely symptomatic stenosis in setting of hypotension PLAN: -Unable to get MRI 2/2 spinal stimulator lead -Will continue prednisone 20mg daily + bactrim ppx -ASA 81 -Lipitor 40 -Warfarin 2mg daily -Daily INR -Avoid hypotension -Rheum/Stroke follow ups scheduled 05/01 -Likely restart Cellcept as outpatient Cardiovascular Sinus bradycardia Assessment AND Plan Assessment: Stable, asymptomatic PLAN: -Monitor for hypotension persistent arrhythmia Hematology Leukocytosis Assessment AND Plan WBC 17 today (12 on admission) Afebrile, VSS No s/s of infection; no dysuria, cough, fever/chills, rash, diarrhea, negative DVT US LEs Assessment: Possibly 2/2 manipulation of L eye vs steroids PLAN: -Monitor for s/s of infection -Ophthalmology evaluation to r/o endophthalmitis -Trend WBC Ophthalmology Acute angle-closure glaucoma of left eye Assessment AND Plan S/p vitreous drainage per Ophthalmology prior to admission PLAN: -Ophthalmology consult for post-op evaluation -Continue eye drops -Monitor for evidence of infection, WBC increased to 17 today -Eye pain improving Other Anti-cardiolipin antibody positive Assessment AND Plan PLAN: -Continue warfarin Reflex sympathetic dystrophy of lower limb Assessment AND Plan PLAN: -continue home pain regimen Imaging Ordered Today: None SIGNATURE: Shira Beyer DO PATIENT NAME: Stephanie Moore DATE: February 13, 2018 TIME: 9:05 AM PAGER/CONTACT #: [phone] ------- [facility] STAFF PHYSICIAN NOTE OF PERSONAL INVOLVEMENT IN CARE ? I have reviewed the Progress note obtained and documented by the resident and I personally participated in the palmer components. I have discussed the case and management of the patient's care. The following comments revise or confirm relevant palmer components of the resident's note. ? 57 year old female with multiple vascular risk factors, complex medical history, previous stroke and known intracranial vascular stenosis, who presented with transient left facial droop and left-sided weakness during an ophthalmological procedure on 02/11/18. It is unclear she had any blood pressure dropped during the procedure. She is back to normal. She has been taking aspirin and Coumadin, and prednisone, although self discontinued 5 days before admission Prior extensive workup detailed in previous notes, including provoked DVT, right MCA stroke, right ICA terminus stenosis, +JAMES, +LAC, LDL 138, A1c 5.[address] on 02/13 shows no new changes Outside CT angiogram compared with October [facility] CT angiogram: No significant changes in the severe right supraclinoid stenosis were found ? IMP: 1. Transient left-sided weakness, possible TIA versus stroke versus exacerbation of prior symptoms 2. Right supraclinoid ICA severe stenosis of unclear etiology 3. Prior stroke 4. Positive immunologic markers and lupus anticoagulant 5. Elevated WBC count 6. ?afib or arrhythmia on telemetry 7. glaucoma ? PLAN: unable to obtain MRI brain, CT without acute disease Diamox SPECT for baseline Immunotherapy per Rheumatology and Dr. Macdonald Statin continue Coumadin and prednisone Monitor WBC - no infectious symptoms Telemetry ophtho exam ? SIGNATURE: Jaime Solis MD February 13, 2018 PROTIME Collected: 02/13/2018 Status: F Source: [place] 6:46 AM [facility] REPOSITORY TYPE CODE TESTS RESULT OUT OF RANGE REFERENCE UNITS LAB PSEC 9.7-13.0 sec High PT Sec 16.7 LAB INR 0.9-1.3 High PT INR 1.6 Result Comment: Vitamin K Antagonist (VKA) Therapeutic Range: INR 2 to 3 (Target INR of 2.5) Note: For patients treated with VKA drugs, such as warfarin, the [place] [employer] 2012 Guideline recommends a therapeutic INR range of 2 to 3 (target INR of 2.5). This recommendation includes high-risk patients with antiphospholipid syndrome with previous arterial or venous thromboembolism, current-generation mechanical or bioprosthetic aortic heart valve replacement. Note: Patients with mechanical aortic valve replacement and additional risk factors for thromboembolic events (atrial fibrillation, previous thromboembolism, LV dysfunction, hypercoagulable conditions) or an older generation mechanical AVR (i.e., ball in-Cage) or any mechanical MVR should have a INR therapeutic range of 2.5 to 3.5 (target INR of 3). Terrance GH, et al. Chest 2012, 141:7S-47S Katya RA, et al. [facility] 2017, 70: 252-289 Performed By: #### PT, CBC, CMP #### [facility] [address] [place], [place] [address] CBC Collected: 02/13/2018 Status: F Source: [place] 6:46 AM [facility] REPOSITORY TYPE CODE TESTS RESULT OUT OF REFERENCE UNITS RANGE LAB WBC 3.70-11.00 k/uL WBC High 17.03 LAB RBC 3.90-5.20 m/uL RBC 4.23 LAB HGB 11.5-15.5 g/dL Hemoglobin 12.4 LAB HCT 36.0-46.0 % Hematocrit 38.2 LAB MCV 80.0-100.0 fL MCV 90.3 LAB MCH 26.0-34.0 pG MCH 29.3 LAB MCHC 30.5-36.0 g/dL MCHC 32.5 LAB RDWCV 11.5-15.0 % RDW-CV 13.6 LAB PLTCT 150-400 k/uL Platelet Count 230 LAB MPV 9.0-12.7 fL MPV 10.4 LAB ABSNUC <0.01 k/uL Absolute nRBC <0.01 Performed By: #### PT, CBC, CMP #### [facility] [address] [place], [place] [address] COMP METABOLIC PANEL Collected: 02/13/2018 Status: F Source: [place] 6:46 AM [facility] REPOSITORY TYPE CODE TESTS RESULT OUT OF REFERENCE UNITS RANGE LAB TP 6.3-8.0 g/dL Low Protein, Total 6.2 LAB ALB 3.9-4.9 g/dL Low Albumin 3.5 LAB CA 8.5-10.2 mg/dL Low Calcium, Total 8.1 LAB TBIL 0.2-1.3 mg/dL Bilirubin, Total 0.5 LAB ALKP 34-123 U/L Alkaline Phosphatase 65 LAB AST 13-35 U/L AST 30 LAB GLU 74-99 mg/dL Glucose 83 Result Comment: The [place] Diabetes Association (ADA) provides guidance for cutoff values for fasting glucose and random glucose. The ADA defines fasting as no caloric intake for at least 8 hours. Fas ting plasma glucose results between 100 to 125 mg/dL indicate increased risk for diabetes (prediabetes). Fasting plasma glucose results greater than or equal to 126 mg/dL meet the criteria for diagnosis of diabetes. In the absence of unequivocal hyperglycemia, results should be confirmed by repeat testing. In a patient with classic symptoms of hyperglycemia or hyperglycemic crisis, random plasma glucose results greater than or equal to 200 mg/dL meet the criteria for diagnosis of diabetes. Reference: Standards of Medical Care in Diabetes 2016, [place] [employer] Association. Diabetes Care. 2016.39(Suppl 1). LAB BUN 7-21 mg/dL BUN 19 LAB CRET 0.58-0.96 mg/dL Creatinine 0.80 LAB NA 136-144 mmol/L Sodium 138 LAB K 3.7-5.1 mmol/L Potassium 3.9 LAB CL 97-105 mmol/L Chloride 105 LAB CO2 22-30 mmol/L CO2 22 LAB AGAP 9-18 mmol/L Anion Gap 11 LAB ALT 7-38 U/L ALT High 59 LAB GFRAA eGFR- Amer. >60 LAB GFRNAA . eGFR-All Other Races >60 Result Comment: eGFR (Estimated GFR) Units of measure: mL/min/1.73 meters squared eGFR is derived from the reexpressed MDRD Study equation using the following parameters: serum creatinine, age, gender and race. The creatinine assay has been calibrated to be traceable to IDMS. An eGFR <60 mL/min/1.73m2 for >3 months is consistent with chronic kidney disease. Refer to KDOQI guidelines for clinical interpretation. In patients with unstable renal function, e.g. those with acute kidney injury, the eGFR may not accurately reflect actual GFR. Performed By: #### PT, CBC, CMP #### [facility] [address] [place] [id number] NURSING PROG Observed: 02/13/2018 Status: COMPLETED Source: [place] 4:08 AM [facility] REPOSITORY HNO ID: [id number] Author: Tara Davison (Rn) CLAYTON Jones Service: (none) Author Type: Registered Nurse Type: Nursing Progress Note Filed: 02/13/2018 4:32 AM Note Text: Nursing Progress Note Patient Name: Stephanie Moore Patient Location: [place] [id number] Daily Note: Pt heart rate ranges from 39-49 bpm. All other vital signs are stable. Pts states she feels okay. No signs of bradycardia. Pt refuses Methadone this PM. Educated with the med administration. 2STRK notified and advise to continue to monitor. This note was completed by: Tara Jones RN PLAN OF CARE Observed: 02/12/2018 Status: COMPLETED Source: [place] 4:56 PM [facility] REPOSITORY HNO ID: [id number] Author: Valeriy Lara Service: Neurology Stroke Author Type: Resident Type: Plan of Care Filed: 02/12/2018 4:57 PM Note Text: NEUROLOGY PLAN OF CARE NOTE PATIENT NAME: Stephanie Moore DATE: 02/12/2018 Information about the spinal cord stimulator: - Spinal cord stimulator was removed > 10 years ago however some wires are still present - Device: SYNERGY EZ MODEL [id number] HAND-HELD SIGNATURE: Valeriy Lara MD PAGER:[phone] DATE of SERVICE: February 12, 2018 TIME of SERVICE: 4:56 PM CASE MGT INIT Observed: 02/12/2018 Status: COMPLETED Source: [facility] 4:07 PM [facility] REPOSITORY HNO ID: [id number] Author: Joyce (Ariella Madison Service: Care Management Author Type: Share Holder Type: Care Mgt Initial Assessment Filed: 02/12/2018 4:08 PM Note Text: CARE MANAGEMENT PROGRESS NOTE SERVICE DATE: 02/12/2018 SERVICE TIME: 3:45pm LOS: 0 days This SW made several attempts to complete Initial Assessment but pt off unit. Per medical team, no PT/OT is ordered. Pt is anticipated to d/c home today with no skilled PAC needs identified. Please contact CM if any new skilled d/c needs arise. SIGNATURE: GI Ramirez PATIENT NAME: Stephanie Moore DATE: February 12, 2018 TIME: 4:07 PM PAGER/CONTACT #: [phone] 12 LEAD ELECTROCARDIOGRAM Observed: 02/12/2018 Status: F Source: [place] 3:09 PM [facility] REPOSITORY [facility] Cardiovascular Services [address] [place] [phone] Lead EKG 02/09/18 1127 MR#: [id number] Acct: [id number] Name: STEPHANIE MOORE Rep #: [id number] : 1960 57 From: Mayank Langford MD Attending Dr: Status: DEP ER Ordering Dr: Olivia Whitley MD Date: 02/09/18 Location: ED Sex: F C Admitted: Test Reason : NEURO SYMPTOMS Blood Pressure : / mmHG Vent. Rate : 053 BPM Atrial Rate : 053 BPM P-R Int : 126 ms QRS Dur : 086 ms QT Int : 416 ms P-R-T Axes : 037 032 044 degrees QTc Int : 390 ms Sinus bradycardia Otherwise normal ECG Confirmed by MAYANK LANGFORD MD ([id number]), continuity editor GRACE WALTERS ([id number]) on 02/12/2018 3:08:51 PM Referred By: [place] Confirmed By:MAYANK LANGFORD MD 02/12/18 1508 Date Mayank Langford MD CC: Anuj Hanson MD; Olivia Whitley MD Signed US TCD BUBBLE STUDY Observed: 02/12/2018 Status: F Source: [place] 11:11 AM [facility] REPOSITORY * * *Final Report* * * DATE OF EXAM: Feb 12 2018 11:11AM [facility] [place] - US TCD BUBBLE STUDY / PROCEDURE REASON: Focal neuro deficit, new, fixed, or worsening, > 24 hours, stroke suspected * * * * Physician Interpretation * * * * CLINICAL HISTORY: 57-year-old female with right MCA stroke. The patient has severe stenosis of the right superior supraclinoid ICA. 1.0 cc of air was agitated with 1.0 cc of the patient's blood and .09 cc of normal saline and injected into the right antecubital IV site. EMBOLI Left MCA Right MCA INJECTION 0 0 VALSALVA 31 4 POST 2 0 TOTAL 33 4 CURTAIN SIGN WAS NOT DETECTED. Technologist: Haleigh Molina RVT, Leo Booth RVT IMPRESSION: The examination was somewhat limited by the patient's very poor temporal windows bilaterally. Multiple microembolic events were detected in the bilateral MCAs upon injection of 10 cc of agitated saline solution. The examination is positive for right to left shunt. Markedly diminished mean flow velocities in the right MCA (25 cm/sec) when compared with the left side (71 cm/sec) likely reflect the known severe disease proximally. 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 Engine Mechanic: CARMEN Transcribe Date/Time: Feb 12 2018 11:18A Dictated by : SHIRA STOKES MD This examination was interpreted and the report reviewed and electronically signed by: SHIRA STOKES MD on Feb 12 2018 11:35AM EST [id number] PLAN OF CARE Observed: 02/12/2018 Status: COMPLETED Source: [place] 11:09 AM [facility] REPOSITORY HNO ID: [id number] Author: Isak Eastman (Pharmacist) Service: Pharmacy Author Type: Pharmacist Type: Plan of Care Filed: 02/12/2018 2:12 PM Note Text: MEDICATION HISTORY AND MEDICATION RECONCILIATION Patient Name:Aurelia Moore : 1960 Source of history:Patient: Reliability of source: Appears reliable, clearly identified: Medication name, Pharmacy records: [facility] [place] and [facility] records Medication Nonadherence Identified: Pt notes she has not taken most of her medications since last week (Saturday or Saturday). Pt is poor historian, but pharmacy reports consistent fill history. The above information represents the best possible medication history: Yes Reconciliation completed? Yes All [employer] medications addressed by LIP Medications DELETED from [employer] List: ? Cyclobenzaprine (Flexeril) 10 mg - 5 day prescription LF in 2017 Medications patient is NOT TAKING (not deleted due to active script status): ? Mycophenolate mofetil (Cellcept) 500 mg - Pharmacy has active script for medication but patient has not filled it. The pharmacy has no notes indicating why it was not filled. Patient is not familiar with medication when asked (brand or generic). ? Warfarin (Coumadin) 5 mg - Recently had dosed decreased to warfarin 2 mg tablet due to INR of 3.6. Pt reports she takes 4 mg daily. Pharmacy has script for 2 mg daily as directed. Notes: ? Besifloxacin (Besivance), bimatoprost (Lumigan), brinzolamide-brimonidine (Simbrinza) - Pt reports she just received these medications on 02/11. ? Prednisone (Deltasone) 20 mg - Pt was on taper and was taking 20 mg daily [employer], but has not taken her doses in a few days. Additional comments: N/A Allergies: ALLERGIES Allergen Reactions - Opioids - Morphine * vicodin - Pentazocine talwin - Propoxyphene darvacet - Steri Strips And Pa* - Talacen [Pentazocin* Mental Status Change Preferred Pharmacy: [address] [address] [facility]??- [phone] Current [employer] Medications: Prior to Admission medications as of 02/12/18 1109 Medication Sig Taking ALPRAZolam (XANAX) 1 mg tablet Take 1 tablet by mouth at bedtime as needed. Yes aspirin (ZACK CHEWABLE ASPIRIN) 81 mg chewable tablet Take 81 mg by mouth once daily. Yes atorvastatin (LIPITOR) 40 mg tablet Take 40 mg by mouth once daily. Yes Besifloxacin (BESIVANCE) 0.6 % drps Use 1 Drop in the left eye three times daily. Yes bimatoprost (LUMIGAN) 0.01 % drop ophthalmic drops Use 1 Drop in the left eye daily at bedtime. Yes brinzolamide-brimonidine (SIMBRINZA) 1%-0.2 % Ophth Susp Use in the left eye three times daily. Yes famotidine (PEPCID AC) 20 mg tablet Take 1 tablet by mouth twice daily. Yes methadone 10 mg tablet Take 10 mg by mouth every 8 hours as needed. Take three tablets , three times daily . Pain Management Dr Bassett Yes oxyCODONE-acetaminophen (PERCOCET) 5-325 mg tablet Take 1 tablet by mouth every 8 hours as needed for Pain. Pain Management Dr Basstet Yes predniSONE (DELTASONE) 20 mg tablet Patient taking differently: 20 mg once daily. Yes sulfamethoxazole-trimethoprim (BACTRIM DS) 800-160 mg per tablet Take 1 tablet by mouth every Saturday,Saturday,Saturday. Yes warfarin (COUMADIN) 2 mg tablet Take 1 tablet by mouth daily as directed. Yes mycophenolate Mofetil (CELLCEPT) 500 mg tablet 1 tablet twice per day for 2 weeks then 2 tablet twice per day for 2 weeks then 3 tablets twice per day Medication pt is NOT TAKING warfarin (COUMADIN) 5 mg tablet Take 1 tablet by mouth once daily. or as directed by physician Medication pt is NOT TAKING Chanell Thomas (Floor Manager) February 12, 2018 11:[address] BRAIN WO IVCON Observed: 02/12/2018 Status: F Source: [place] 10:17 AM [facility] REPOSITORY * * *Final Report* * * DATE OF EXAM: Feb 12 2018 10:17AM [facility] [place] CT BRAIN WO IVCON / PROCEDURE REASON: TIA, initial exam * * * * Physician Interpretation * * * * EXAMINATION: CT BRAIN WO IVCON CLINICAL HISTORY: TIA. TECHNIQUE: Serial axial images without IV contrast were obtained from the vertex to the foramen magnum. MQ: [id number] CT Dose-Length Product (DLP): 776 mGy*cm CT Dose Reduction Employed: No dose reduction techniques were required COMPARISON: CTA head 10/31/2017. RESULT: Post-operative change: None. Acute change: No evidence of an acute infarct or other acute parenchymal process. Hemorrhage: No evidence of acute intracranial hemorrhage. Mass Lesion / Mass Effect: There is no evidence of an intracranial mass or extraaxial fluid collection. No significant mass effect. Chronic change: Increase conspicuity of transcortical hypoattenuation involving the right frontal, compatible with remote right frontal and 4 at the border of the right KARLEY and MCA territory, possibly watershed ischemia. Parenchyma: There is no significant volume loss. The brain parenchyma is otherwise within normal limits for age. Ventricles: The ventricles are within normal limits of size and configuration for age. Paranasal sinuses and skull base: The visualized paranasal sinuses are grossly clear. The skull base and imaged soft tissues are unremarkable. IMPRESSION: No acute intracranial process. Chronic changes of right frontal lobe infarct, possibly watershed distribution the border between right MCA and KARLEY territories, not significantly changed. 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 Engine Mechanic: PSCMichael Transcribe Date/Time: Feb 12 2018 10:29A Dictated by : JOSHUA SKELTON DO This examination was interpreted and the report reviewed and electronically signed by: CR SALGUERO MD on Feb 12 2018 11:15AM EST [id number] Observed: 02/12/2018 Status: COMPLETED Source: [place] 10:14 AM [facility] REPOSITORY HNO ID: [id number] Author: ITALIA Zavala (Ct) Service: Radiology Author Type: Clinical Zipper Machine Operator Type: Progress Notes Filed: 02/12/2018 10:17 AM Note Text: Radiology Service Progress Note PATIENT NAME: Stephanie Moore DATE OF SERVICE: February 12, 2018 TIME: 10:15 AM PATIENT IDENTITY VERIFICATION COMPLETED USING TWO (2) METHODS: ID Band and Date of . PATIENT GENDER DATA: Female. status: : No status: NO. PATIENT RELEVANT IMPLANT DATA REVIEWED: Yes RADIOLOGY DEPARTMENT: CT; Exam(s) Completed: Brain PERIPHERAL IV DATA: Not applicable SIGNED BY: ITALIA Zavala February 12, 2018 10:15 AM NURSING PROG Observed: 02/12/2018 Status: COMPLETED Source: [facility] 9:14 AM [facility] REPOSITORY HNO ID: [id number] Author: Cindy MosherRn) CLAYTON Sultana Service: (none) Author Type: Registered Nurse Type: Nursing Progress Note Filed: 02/12/2018 9:15 AM Note Text: Nursing Progress Note Patient Name: Stephanie Moore Patient Location: H060 [id number]/[id number] Pt refused AM dose of Methadone. Pt states, No pain, at this time. [id number] paged and notified. Will continue to monitor. This note was completed by: Cindy Sultana RN ECG COMPLETE W Observed: 02/12/2018 Status: F Source: [place] INTERPRETATION 8:55 AM [facility] REPOSITORY NAME : STEPHANIE MOORE PID : [id number] : 1960 Gender : Female Race : ORD : [id number] Procedure Date : Feb 12 2018 08:55:16 Edit Date : Feb 13 2018 11:01:56 Diagnosis:SINUS BRADYCARDIA OTHERWISE NORMAL ECG Confirmed by COOPER FENTON M.D. ([id number]) on 02/13/2018 10:48:20 AM Ventricular Rate : 52 BPM Atrial Rate : 52 BPM P-R Interval : 122 ms QRS Duration : 88 ms Q-T Interval : 438 ms QTC Calculation(Bezet) : 407 ms P Burrton : 40 degrees R Burrton : 26 degrees T Burrton : 48 degrees Test Reason : Carotid Stenosis Location : 63 : H60 021 Overread By : COOPER FENTON M.D. Edited By : COOPER FENTON M.D. Referred By : OLIVIA WHITLEY Acquired by : Maame Ricardo PROTIME Collected: 02/12/2018 Status: F Source: [facility] 7:05 AM [facility] REPOSITORY TYPE CODE TESTS RESULT OUT OF RANGE REFERENCE UNITS LAB PSEC 9.7-13.0 sec High PT Sec 23.2 LAB INR 0.9-1.3 High PT INR 2.3 Result Comment: Vitamin K Antagonist (VKA) Therapeutic Range: INR 2 to 3 (Target INR of 2.5) Note: For patients treated with VKA drugs, such as warfarin, the [place] 2012 Guideline recommends a therapeutic INR range of 2 to 3 (target INR of 2.5). This recommendation includes high-risk patients with antiphospholipid syndrome with previous arterial or venous thromboembolism, current-generation mechanical or bioprosthetic aortic heart valve replacement. Note: Patients with mechanical aortic valve replacement and additional risk factors for thromboembolic events (atrial fibrillation, previous thromboembolism, LV dysfunction, hypercoagulable conditions) or an older generation mechanical AVR (i.e., ball in-Cage) or any mechanical MVR should have a INR therapeutic range of 2.5 to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 percocet, who had a near syncope episode in the opthalmology office, and found to have new LFD and weakness, in the setting of known R ICA stenosis, is transferred from [place] ED for further management. Currently back to baseline with mild LFD. Risk Factors Dyslipidemia Stroke Mechanism PLAN [Neuro] - Admit to stroke - Neurochecks: Q4 - Continue aspirin 81mg and atorvastatin - A1c(5.8) and LDL(138) were recently done on 12/27 - Check INR, restart coumadin - Opthalmology consult for acute close angle glaucoma - Continue prednisone 20mg - Need to clarify with pharmacy whether she filled cellcept, patient was not clear whether she is taking it - May consider repeat MRI brain to evaluate any new infarcts, but her symptoms resolved. She had spinal stimulator in the past but removed now. [CV] - Telemetry, EKG - SBP Parameters: 130-160 - meds: none [Pulm] - NC to keep sats >92, d/c if tolerated - CXR [GI/Nutrition] - Regular diet - zofran, colace PRN [Renal/Electrolytes/] - Admission labs - CBC, CMP, PT/PTT/coags - I/O strict - BUN/Cr daily - replete electrolytes as needed [ID] - no active issues, cultures if temp >38.5 [Heme] - H/H, PLT, PT/INR, PTT - Continue home coumadin [Endo] - no active issues [Dispo] - PT/OT Imaging Ordered Today: None SIGNATURE: Dayan Mckeon DO PATIENT NAME: Stephanie Moore DATE: February 12, 2018 TIME: 6:01 AM PAGER/CONTACT #: ? Senior Resident Addendum ? I have seen and evaluated the patient with the resident. I have personally reviewed the history and medical record. Please refer to the note above, which I have directly edited. ? Please refer to the above note for details regarding patients history. Briefly, the patient was transferred to [facility] after having worsening of L FD and LUE weakness during an opthalmology appointment. Per patient, her SBP was in 140s at the time and she did not notice any change in symptoms, but it was observed by her information technology assistant. In ED, CTH negative and CTA unchanged. She was then transferred to [facility]. She is a patient of Dr. 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 She was most recently taking Prednisone 20mg daily but unclear if she was taking Cellcept. ? Neurological exam significant for decreased nasolabial fold on left but smile symmetric. Rest of neurological exam intact, no drift in LUE. ? Plan: - Admitted to [facility] - Check CBC, BMP - Check INR then restart home Coumadin (she missed last couple days of Coumadin dose due to feeling ill) - Opthalmology consult for glaucoma - Consider MRI Brain wo to investigate for new area of stroke (although she appears to be back to her baseline) - SBP < 180 for now - Continue home ASA and statin - Continue Prednisone 20mg - Clarify with pharmacy if she was taking Cellcept ? Mariah Mendosa MD PGY-3 Neurology Resident [id number] ------- [facility] STAFF PHYSICIAN NOTE OF PERSONAL INVOLVEMENT IN CARE I have reviewed the history and physical examination obtained and documented by the resident and I personally participated in the palmer components. I have discussed the case and management of the patient's care. The following comments revise or confirm relevant palmer components of the resident's note. 57 year old female with multiple vascular risk factors, complex medical history, previous stroke and known intracranial vascular stenosis, who presented with transient left facial droop and left-sided weakness during an ophthalmological procedure on 02/11/18. It is unclear she had any blood pressure dropped during the procedure. She is back to normal today. She has been taking aspirin and Coumadin, and prednisone Prior extensive workup detailed above, including provoked DVT, right MCA stroke, right ICA terminus stenosis, +JAMES, +LAC, LDL 138, A1c 5.8 IMP: 1. Transient left-sided weakness, possible TIA versus stroke versus exacerbation of prior symptoms 2. Right supraclinoid ICA severe stenosis of unclear etiology 3. Prior stroke PLAN: MRI brain to evaluate for new stroke obtain outside hospital CTA for comparison Will discuss immunotherapy with Rheumatology and Dr. Macdonald TCD bubble Statin no need for speech therapy or physical therapy, patient back to normal continue Coumadin and prednisone for now SIGNATURE: Jaime Solis MD February 12, 2018 EMERGENCY DEPARTMENT Observed: 02/12/2018 Status: F Source: [place] SUMMARY 1:57 AM [facility] Medical Records Department [address] [place] [address] Emergency Department Summary 02/12/18 0044 MR#: [id number] Acct: [id number] Name: STEPHANIE MOORE Rep #: [id number] : 1960 57 From: Olivia Whitley MD PCP: Anuj Hanson MD Status: REG ER - ER Visit Summary Date of Service: 02/12/18 Chief Complaint: Weakness and facial droop History of Present Illness: The patient is a 57 F who was seen in the ED on February 09 for headache and blurred vision out of her left eye. CT was unremarkable. NIH was 0. Headache was treated. Patient states her left eye became more painful and she was seen by ophthalmology. She was found to have closed angle glaucoma. There was no relief of pressure with drops or laser. She had to have fluid drained from her left eye. Following this she had a near syncopal episode with noted left facial droop and left arm weakness. Symptoms resolved rather quickly. Patient did have a stroke with similar symptoms in August of this year. At that time she was found to have narrowing of her carotid that is currently being treated with prednisone and Bactrim. She was also found to have factor V Leiden and is currently on Coumadin. Physical Examination: Vital signs are unremarkable the bradycardia with a heart rate of 49. Head neck examination does reveal small some conjunctival hemorrhage in the medial portion of the left eye. Heart is bradycardic and regular. Lung sounds are clear. Abdomen is soft nontender. NIH score on arrival is 0. Test Results: EKG is sinus bradycardia at 50 bpm. No sign of acute ischemia. CBC was a white count of 15.7 but the patient has been on prednisone. Differential is normal. Chemistry studies are significant only for a sodium of 132. INR is therapeutic at 2.6. Troponin is 0.091. Noncontrast head CT shows no acute abnormalities. I spoke with the patient about admission for MRI, however she has leads in her back from a prior spinal stimulator and cannot have an MRI. CTA of the head and neck is then pursued. I was called by the radiologist with report from her CTA head. There is progressive narrowing and virtual nonvisualization of the supraclinoid segment of the right ICA. There is likely a string sign present. This has progressed further when compared to prior study from August. CTA of the neck shows no significant vascular disease in the carotid or vertebral arteries. Emergency Department Course and Treatment: Patient was given morphine and Zofran for headache. She is to continue the eyedrops given to her by her information technology assistant. Test results are discussed with the patient and at bedside. I spoke with neurology at [facility] and patient will be transferred there for further evaluation. Patient is currently on prednisone, but has not been able to tolerate her medications yesterday or today secondary to nausea. She is given a dose of IV Solu-Medrol. Treatment Plan: [] Disposition: Transfer Impression: 1. TIA 2. Supraclinoid right ICA narrowing 3. Acute closed angle glaucoma This note was generated with [employer] dictation software. It may contain incorrect words, spelling, and punctuation that were not noted in review of the chart prior to signing ED Disposition - Plan for ED Patient: Chief Complaint: Neuro S/Sx Referrals: Anuj Hanson MD [Primary Care Provider] - What to do if you have Problems For any increased pain, shortness of breath, bleeding, nausea or vomiting, chest pain, or any unexpected problems, contact your Primary Care Provider. Call [facility] ([phone]) or report to the closest Emergency Room. Call 911 if necessary. 02/12/18 0157 <Electronically signed by Olivia Whitley MD> Date Olivia Whitley MD Cosigner Signature (If Indicated): Date CC: Anuj Hanson MD CTA HEAD W/WO Observed: 02/11/2018 Status: F Source: [place] CONTRAST 9:33 PM [facility] Imaging Services [address] [place] [address] CTA Head W/WO Contrast MR#: [id number] Acct: [id number] Name: STEPHANIE MOORE Rep #: [id number] : 1960 F 57 From: Olivia Jimenez MD PCP: Anuj Hanson MD Status: REG ER Study: CTA Head W/WO Contrast Date of Exam: 02/11/18 Exam# [id number] Ordering Dr: Olivia Whitley MD STUDY: CTA OF THE BRAIN REASON FOR EXAM: Female, 57 years old. Headache, left numbness RADIATION DOSAGE (If Supplied By Facility): CTDIvol = ( 22.15 ) mGy, DLP = ( 724.90 ) mGycm TECHNIQUE: CT angiography was performed with a multi-detector CT scanner. Data acquisition was obtained from the skull base through the vertex following intravenous administration of 100 ml of Isovue 370. MIP images were reconstructed from the axial data set. Post-processing of the angiographic images was performed, with multiplanar reformation and 3D reconstruction. Individualized dose optimization techniques were used for this CT. COMPARISON: Head CT without contrast from the same day, head CTA dated September 20, 2017 FINDINGS: Petrous carotid arteries: Normal in appearance. Right cavernous carotid artery: Marked narrowing of the supraclinoid segment of the right ICA with faint visualization of contrast. Left cavernous carotid artery: Normal in appearance. Right A1 segment: Small but patent. Left A1 segment: Normal. ACOM: Normal. Bilateral A2 segments: Normal in appearance. Right M1 and M2 segments: Small but patent. Left M1 and M2 segments: Normal in appearance. Right PCOM: Normal in appearance. Left PCOM: Normal in appearance. Vertebral arteries: Normal distal vertebral arteries. Basilar artery: Normal in appearance. Superior cerebellar arteries: Normal in appearance. Right LIQUID WASTE TREATMENT PLANT OPERATOR: Normal in appearance. Left LIQUID WASTE TREATMENT PLANT OPERATOR: Normal in appearance. No demonstrated aneurysm. Intracranial: No demonstrated enhancement of the visualized brain. CT/CTA Head W/WO Contrast IMPRESSION: There has been progressive narrowing and virtual nonvisualization of the supraclinoid segment of the right ICA. There is likely a string sign present. The right A1 segment and right MCA branches are likely filling primarily across the anterior communicating artery. The right A1 segment and the right middle cerebral artery branches are patent but are smaller in size than compared to the prior study. Although there is no noticeable difference in the ischemic changes on the right side, there may be new ischemia superimposed on the old ischemia. N.B. : The above information has been verbally conveyed by Olivia Jimenez MD to Olivia Whitley MD, on 02/11/2018 23:08:52 (ET). 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 Left numbness, history of prior right cerebrovascular accident RADIATION DOSAGE (If Supplied By Facility): CTDIvol = ( 22.15 ) mGy, DLP = ( 724.90 ) mGycm TECHNIQUE: CT angiography with multi-detector data acquisition was performed from the aortic arch to the skull base following intravenous administration of 100 ml of Isovue 370 contrast. MIP images were reconstructed from the axial data set. Post-processing of the angiographic images was performed, with multiplanar reformation and 3D reconstruction. Individualized dose optimization techniques were used for this CT. COMPARISON: September 20, 2017 FINDINGS: Aortic arch: Normal in appearance. Normal origins of the brachiocephalic, left common carotid, and left subclavian arteries. Right carotid arteries: CCA: Normal in appearance. Carotid bulb: Trace calcified plaque. ICA: Normal in appearance. Normal visualized cervical portion of the right internal carotid artery. ECA: Normal in appearance. Left carotid arteries: CCA: Normal in appearance. Carotid bulb: Normal in appearance. ICA: Normal in appearance. Normal visualized cervical portion of the right internal carotid artery. ECA: Normal in appearance. Vertebral arteries: The vertebral arteries show no significant abnormalities. Possible mild bullous changes in the lung apices. There are no abnormal masses or enlarged lymph nodes in the upper mediastinum or throughout the neck. The thyroid is normal in appearance. The submandibular glands and parotid glands are symmetric and normal in appearance. The sinuses and mastoid air cells are well aerated. There are moderate degenerative changes in the cervical spine. CT/CTA Neck W/WO Contrast IMPRESSION: There is no significant vascular disease in the cervical carotid arteries or vertebral arteries. 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 CBC W/DIFF, AUTOMATED Collected: 02/11/2018 Status: F Source: [place] 7:46 PM [facility] TYPE CODE TESTS RESULT OUT OF RANGE REFERENCE UNITS LAB L100.1000 4.4-11.0 K/mm3 High WBC 15.7 LAB L100.1200 4.2-5.4 M/mm3 Normal RBC 4.94 LAB L100.1300 12.0-15.0 g/dl Normal HGB 14.4 LAB L100.1400 37-47 % Normal HCT 44.2 LAB L100.1500 81-99 fL Normal MCV 89.5 LAB L100.1600 27.0-32.0 pg Normal MCH 29.1 LAB L100.1700 32-36 g/gl Normal MCHC 32.6 LAB L100.1810 11.6-14.6 % Normal RDW CV 13.7 LAB L100.1820 35.1-43.9 fl High RDW SD 45.0 LAB L100.1900 150-450 K/mm3 Normal PLT 320 LAB L100.2000 6.2-12.0 fl Normal MPV 9.6 LAB L100.2100 47-70 % Normal NEUT% 69.1 LAB L100.2200 19-41 % Normal LY% 21.9 LAB L100.2300 0-10 % Normal MONO% 7.3 LAB L100.2400 0-5 % Normal EO% 0.3 LAB L100.2500 0-1 % Normal BASO% 0.1 LAB L100.2550 0.0-0.9 % High IM GRAN % 1.300 Result Comment: IG% - Immature Granulocytes (promyelocytes, myelocytes and metamyelocytes) > 1% indicates that a LEFT SHIFT is Present. LAB L100.2620 2.0-7.7 X10 3/uL High Absolute Neut 10.8 LAB L100.2720 0.83-4.51 X10 3/ul Normal Absolute Lymph 3.43 Performed By: #### L100.0100 #### [facility] [address] [place], [place], [id number] PROTHROMBIN TIME W/INR Collected: 02/11/2018 Status: F Source: [place] 7:46 PM [facility] TYPE CODE TESTS RESULT OUT OF RANGE REFERENCE UNITS LAB L300.4150 11.7-14.9 SECONDS High PROTIME 28.3 LAB L300.4200 Normal INR 2.6 Performed By: #### L300.3900 #### [facility] [address] [facility]. [place], [place], [address] BASIC METABOLIC Collected: 02/11/2018 Status: F Source: [place] PROFILE (BMP) 7:46 PM [facility] TYPE CODE TESTS RESULT OUT OF RANGE REFERENCE UNITS LAB L501.0100 74-106 mg/dL High GLU 120 Result Comment: Fasting Glucose result from 100 to 125 mg/dL suggests IMPAIRED HOMEOSTASIS per A.D.A. criteria. Please note revised GLUCOSE reference range effective 2017. LAB L501.1000 7-18 mg/dL Normal BUN 17 LAB L501.1100 0.55-1.02 mg/dL Normal CREAT,SERUM 0.96 Result Comment: The validity of the calculated GFR AND GFRAA in patients over 70 years has not been determined. Clinical correlation is essential. LAB L501.1110 >60 mL/min Normal EST GFR 64 Result Comment: Non- GFR Calc LAB L501.1115 >60 mL/min Normal EST GFR - AA 77 Result Comment: GFR Calc LAB L501.1255 ml/min Normal Estimated CRCL 59.58 LAB L501.1300 10-20 RATIO Normal BUN/CRE 17.7 LAB L501.2200 8.5-10 mg/dL Normal .1 CA 8.7 LAB L501.5300 136-14 mmol/L Low 5 NA 132 LAB L501.5600 3.5-5. mmol/L Normal 1 K 3.7 LAB L501.5900 98-107 mmol/L Low CL 96 LAB L501.6100 21.0-3 mmol/L Normal 2.0 CO2 28.0 LAB L501.6200 5-15 Normal GAP 8 Performed By: #### L500.2500, L501.4010 #### [facility] [address] [facility]. [place], [place], [id number] TROPONIN-I Collected: 02/11/2018 Status: F Source: [place] 7:46 PM [facility] TYPE CODE TESTS RESULT OUT OF RANGE REFERENCE UNITS LAB L501.4010 <0.045 ng/mL High 0.091 TROPONIN-I Result Comment: TROPONIN-I EXPECTED VALUES <0.045 Negative 0.045 - 0.590 Consistent with Cardiac Damage > OR = 0.600 Critical Value Not every elevated troponin is indicative of IL. These values should be used with clinical judgement in examining the patient's clinical picture for diagnosis. To establish a diagnosis of IL versus myocardial injury, there must be a demonstrated rise and/or fall in the troponin values, in addition to ischemic symptoms, EKG changes, new regional wall motion abnormality, and/or angiographical evidence. PLEASE NOTE: REFERENCE RANGES EDITED 17 Performed By: #### L500.2500, L501.4010 #### [facility] [address] [place], [place], [address] BRAIN/HEAD WITHOUT Observed: 02/11/2018 Status: F Source: [place] CONTRAST 7:43 PM [facility] Imaging [place] [address] Brain/Head without Contrast MR#: [id number] Acct: [id number] Name: STEPHANIE MOORE Rep #: [id number] : 1960 F 57 From: Olivia Jimenez MD PCP: Anuj Hanson MD Status: REG ER Study: Brain/Head without Contrast Date of Exam: 02/11/18 Exam# [id number] Ordering Dr: Olivia Whitley MD STUDY: CT BRAIN WITHOUT CONTRAST REASON FOR EXAM: Female, 57 years old. Headache RADIATION DOSAGE (If Supplied By Facility): CTDIvol = ( 44.99 ) mGy, DLP = ( 812.98 ) mGycm TECHNIQUE: Transaxial CT imaging of the brain was performed without administration of intravenous contrast material. Individualized dose optimization techniques were used for this CT. COMPARISON: February 09, 2018 FINDINGS: Ventricles: Normal for patient's age. White matter and Cortex: Normal appearance of the white matter tracts. There is asymmetric hypodensity in the right frontal lobe. Basal ganglia and Thalami: Normal in appearance. Brainstem: Normal in appearance. Cerebellum: Normal in appearance. Vascular: No significant abnormalities. No evidence of acute hemorrhage. No evidence of acute ischemia. No evidence of mass effect. Soft tissues: Unremarkable. Bones: Unremarkable. Sinuses: Unremarkable. CT/Brain/Head without Contrast IMPRESSION: No acute intracranial abnormalities. Encephalomalacia is again seen in the right frontal lobe consistent with old ischemia. 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 CT-CTA HEAD W/WO Observed: 02/11/2018 Status: F Source: [place] CONTRAST IMPORT 12:00 AM [facility] REPOSITORY Images were obtained outside of [facility] [id number] CT-BRAIN/HEAD WITHOUT Observed: 02/11/2018 Status: F Source: [place] CONTRAST IMPORT 12:00 AM [facility] REPOSITORY Images were obtained outside of [facility] [id number] CT-BRAIN/HEAD WITHOUT Observed: 02/11/2018 Status: F Source: [place] CONTRAST IMPORT 12:00 AM [facility] REPOSITORY Images were obtained outside of [facility] [id number] CT-CTA NECK W/WO Observed: 02/11/2018 Status: F Source: [place] CONTRAST IMPORT 12:00 AM [facility] [place] REPOSITORY Images were obtained outside of [facility] [id number] PROGRESS Observed: 02/10/2018 Status: COMPLETED Source: [place] 3:30 PM [facility] REPOSITORY HNO ID: [id number] Author: Arlene Pacheco RN Service: (none) Author Type: (none) Type: Progress Notes Filed: 02/10/2018 3:30 PM Note Text: PATIENT NOTIFIED OF INFORMATION PROGRESS Observed: 02/10/2018 Status: COMPLETED Source: [place] 11:00 AM [facility] REPOSITORY HNO ID: [id number] Author: Jose Beltran Service: (none) Author Type: Physician Type: Progress Notes Filed: 02/10/2018 3:30 PM Note Text: Ask her to decrease dose to 4 mg daily (should have 2 mg tablets on hand). Recheck INR in a week. Jose Beltran, DO PROGRESS Observed: 02/10/2018 Status: COMPLETED Source: [place] 10:47 AM [facility] REPOSITORY HNO ID: [id number] Author: Arlene Pacheco RN Service: (none) Author Type: (none) Type: Progress Notes Filed: 02/10/2018 10:48 AM Note Text: patient had inr completed at [facility] patients inr is 3.6 (patients inr range is 2.0-3.0) patient is currently taking 5mg daily patients last dose change was on 01/27/18 due to starting ATB (dose at that time was 7.5mg daily) patient has had a change in medication as pt is still taking Prednisone and Brctrim, and no missed doses and no change in diet Advised patient that they would be contacted regarding medication dose and when to follow up after information is reviewed by provider. After provider review please contact the patient with information and schedule follow up appointment with coumadin clinic. FYI - patient has been scheduled for an inr follow up 1 week (02/20/18) EMERGENCY DEPARTMENT Observed: 02/09/2018 Status: F Source: [place] SUMMARY 3:42 PM [facility] REPOSITORY [facility] Medical Records Department [address] [place] [address] Emergency Department Summary 02/09/18 1126 MR#: [id number] Acct: [id number] Name: STEPHANIE MOORE Rep #: [id number] : 1960 57 From: Olivia Whitley MD PCP: Anuj Hanson MD Status: DEP ER - ER Visit Summary Date of Service: 02/09/18 Chief Complaint: Headache History of Present Illness: The patient is a 57 F with onset of headache around 930 this morning. Patient stated the pain started on the medial portion of the left eye and is now across her forehead. She has blurred vision from her left eye but her eye is not painful. She is mild light sensitivity. Patient did have an ischemic stroke in August of this year. She has no chronic deficits from this. She underwent an angi[facility] that showed a blockage high in the carotid arteries. They are treating this with steroids and Bactrim. Patient was also found to have factor V Leiden is currently on Coumadin. Physical Examination: Vital signs are unremarkable. Head neck examination reveals no obvious sign of trauma. Pupils are equal and reactive. She has no meningismus. Heart is regular rate and rhythm. Lung sounds are clear. Abdomen is soft and nontender. Neuro exam is unremarkable at this time with an NIH of 0. Test Results: EKG is sinus bradycardia 53 bpm with no sign of acute ischemia. CT head shows no acute hemorrhage or mass-effect. There is expected evolution of the right anterior MCA territory stroke. CBC reveals a white count of 18.6 with normal secondary to her chronic steroids. Chemistry studies are significant for potassium 3.3. INR is therapeutic at 3.0. Emergency Department Course and Treatment: Patient was initially given Reglan, Benadryl, and IV fluids until CT scan could be reviewed. Once CT confirmed no evidence of hemorrhage, patient was given Toradol along with potassium chloride. On repeat evaluation patient states her headache was improved but returned after coughing. She points to the left maxillary and frontal sinuses. At this time we discussed inflammation along the sinus passages and air pressure in her sinuses likely causing her symptoms. She is given a dose of morphine and Zofran on repeat evaluation does feel significantly improved. Patient will use Afrin to help open the nasal passages and continue her current medication regimen. Treatment Plan: [] Disposition: Discharge Impression: Cephalgia secondary to sinus pressure, improved This note was generated with [employer] dictation software. It may contain incorrect words, spelling, and punctuation that were not noted in review of the chart prior to signing ED Disposition - Plan for ED Patient: Disposition: Home or Assisted Living Chief Complaint: Neuro S/Sx Instructions: ED Cephalgia Unspecified Referrals: Anuj Hanson MD [Primary Care Provider] - 3-5 Days What to do if you have Problems For any increased pain, shortness of breath, bleeding, nausea or vomiting, chest pain, or any unexpected problems, contact your Primary Care Provider. Call [facility] ([phone]) or report to the closest Emergency Room. Call 911 if necessary. 02/09/18 1547 <Electronically signed by Olivia Whitley MD> Date Olivia Whitley MD Cosigner Signature (If Indicated): Date CC: Anuj Hanson MD DISCHARGE INSTRUCTION Observed: 02/09/2018 Status: F Source: [place] 3:00 PM [facility] REPOSITORY [facility] Medical Records Department [address] [place] [address] Discharge Instruction 02/09/18 1458 MR#: [id number] Acct: [id number] Name: STEPHANIE MOORE Rep #: [id number] : 1960 57 From: Olivia Whitley MD PCP: Anuj Hasnon MD Status: REG ER ED Disposition - Plan for ED Patient: Disposition: Home or Assisted Living Chief Complaint: Neuro S/Sx Instructions: ED Cephalgia Unspecified Referrals: Anuj Hanson MD [Primary Care Provider] - 3-5 Days What to do if you have Problems For any increased pain, shortness of breath, bleeding, nausea or vomiting, chest pain, or any unexpected problems, contact your Primary Care Provider. Call [facility] ([phone]) or report to the closest Emergency Room. Call 911 if necessary. 02/09/18 1500 <Electronically signed by Olivia Whitley MD> Date Olivia Whitley MD Cosigner Signature (If Indicated): Date CC: Anuj Hanson MD CBC W/DIFF, AUTOMATED Collected: 02/09/2018 Status: C Source: [place] 11:25 AM [facility] REPOSITORY TYPE CODE TESTS RESULT OUT OF RANGE REFERENCE UNITS LAB L100.1000 4.4-11.0 K/mm3 High WBC 18.6 LAB L100.1200 4.2-5.4 M/mm3 Normal RBC 4.83 LAB L100.1300 12.0-15.0 g/dl Normal HGB 14.2 LAB L100.1400 37-47 % Normal HCT 42.7 LAB L100.1500 81-99 fL Normal MCV 88.4 LAB L100.1600 27.0-32.0 pg Normal MCH 29.4 LAB L100.1700 32-36 g/gl Normal MCHC 33.3 LAB L100.1810 11.6-14.6 % Normal RDW CV 13.5 LAB L100.1820 35.1-43.9 fl High RDW SD 44.1 LAB L100.1900 150-450 K/mm3 Normal PLT 326 LAB L100.2000 6.2-12.0 fl Normal MPV 9.9 LAB L100.3100 MANUAL DIFF Normal CELLS COUNTED 100 LAB L100.3200 47-70 % 61 Normal SEGS LAB L100.3800 19-41 % 29 Normal LYMPH LAB L100.3900 0-10 % 10 Normal MONOCYTE LAB L100.4700 1+ Normal REACTIVE LYMPH LAB L100.2620 2.0-7.7 X10 3/uL High Absolute Neut 11.4 LAB L100.2720 0.83-4.51 X10 3/ul High Absolute Lymph 5.40 LAB L100.9900 Normal PATH REV Reviewed Result Comment: Leukocytosis. Clinical correlation necessary. William Ramirez M.D. 02/10/18 AMENDED REPORT 02/10/18 1404 PATH REV previously reported as: June ivis Performed By: #### L100.0100 #### [facility] [address] [facility] [place], [address] PROTHROMBIN TIME W/INR Collected: 02/09/2018 Status: F Source: [place] 11:25 AM [facility] REPOSITORY TYPE CODE TESTS RESULT OUT OF RANGE REFERENCE UNITS LAB L300.4150 11.7-14.9 SECONDS High PROTIME 31.1 LAB L300.4200 Normal INR 3.0 Performed By: #### L300.3900 #### [facility] [address] [place], [address] BASIC METABOLIC Collected: 02/09/2018 Status: F Source: [place] PROFILE (BMP) 11:25 AM [facility] REPOSITORY TYPE CODE TESTS RESULT OUT OF RANGE REFERENCE UNITS LAB L501.0100 74-106 mg/dL Normal GLU 91 Result Comment: Please note revised GLUCOSE reference range effective 2017. LAB L501.1000 7-18 mg/dL High BUN 20 LAB L501.1100 0.55-1.02 mg/dL Normal CREAT,SERUM 0.78 Result Comment: The validity of the calculated GFR AND GFRAA in patients over 70 years has not been determined. Clinical correlation is essential. LAB L501.1110 >60 mL/min Normal EST GFR 81 Result Comment: Non- GFR Calc LAB L501.1115 >60 mL/min Normal EST GFR - AA 98 Result Comment: GFR Calc LAB L501.1255 ml/min Normal Estimated CRCL 67.41 LAB L501.1300 10-20 RATIO High BUN/CRE 25.6 LAB L501.2200 8.5-10 mg/dL Normal .1 CA 8.5 LAB L501.5300 136-14 mmol/L Normal 5 NA 140 LAB L501.5600 3.5-5. mmol/L Low 1 K 3.3 LAB L501.5900 98-107 mmol/L Normal CL 105 LAB L501.6100 21.0-3 mmol/L Normal 2.0 CO2 27.0 LAB L501.6200 5-15 Normal GAP 8 Performed By: #### L500.2500 #### [facility] [address] [facility] [place], [address] BRAIN/HEAD WITHOUT Observed: 02/09/2018 Status: F Source: [place] CONTRAST 11:20 AM [facility] REPOSITORY [facility] Imaging Services [address] [place] [address] Brain/Head without Contrast MR#: [id number] Acct: [id number] Name: STEPHANIE MOORE Rep #: [id number] : 1960 F 57 From: Tomas Gonzalez MD PCP: Anuj Hanson MD Status: REG ER Study: Brain/Head without Contrast Date of Exam: 02/09/18 Exam# [id number] Ordering Dr: Olivia Whitley MD STUDY: CT BRAIN WITHOUT CONTRAST REASON FOR EXAM: Female, 57 years old. Left facial numbness with blurred vision, history of prior infarction RADIATION DOSAGE (If Supplied By Facility): CTDIvol = ( 44.99 ) mGy, DLP = ( 812.98 ) mGycm TECHNIQUE: Transaxial CT imaging of the brain was performed without administration of intravenous contrast material. Individualized dose optimization techniques were used for this CT. COMPARISON: 09/19/2017 FINDINGS: Normal soft tissue structures. Normal calvarium. Normal size ventricles and extra-axial spaces for the patient's age. Encephalomalacia and gliosis of the anterior right frontal lobe has evolved since the prior study. Normal basal ganglia and thalami. Normal brainstem. Normal cerebellum. There is no intracranial hemorrhage. There are no findings of an acute ischemic infarction. Normal visualized paranasal sinuses. CT/Brain/Head without Contrast IMPRESSION: 1. No acute intracranial hemorrhage or mass effect. 2. Expected evolution of right anterior MCA territory infarction. 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 BEDSIDE GLUCOSE Collected: 02/09/2018 Status: F Source: [place] 11:12 AM [facility] REPOSITORY TYPE CODE TESTS RESULT OUT OF RANGE REFERENCE UNITS LAB L501.080 70-110 mg/dL Normal BEDSIDE GLU 71 Result Comment: MANAGEMENT OF PATIENT CARE PER NURSING PROTOCOL Performed By: #### L501.080 #### [facility] Point of Care [address] [place] [address] CT-BRAIN/HEAD WITHOUT Observed: 02/09/2018 Status: F Source: [place] CONTRAST [place]ORT 12:00 AM [facility] REPOSITORY Images were obtained outside of [facility] [id number] PROGRESS Observed: 02/03/2018 Status: COMPLETED Source: [place] 11:29 AM [facility] REPOSITORY HNO ID: [id number] Author: Jose Beltran Service: (none) Author Type: Physician Type: Progress Notes Filed: 02/03/2018 3:51 PM Note Text: Agree with plan as outlined below. Jose Beltran, DO PROGRESS Observed: 02/03/2018 Status: COMPLETED Source: [place] 10:09 AM [facility] REPOSITORY HNO ID: [id number] Author: Arlene Pacheco RN Service: (none) Author Type: (none) Type: Progress Notes Filed: 02/03/2018 10:10 AM Note Text: patient had inr completed at [facility] patients inr is 2.6 (patients inr ranges is 2.0-3.0) patient is currently taking 5mg daily patients last dose change was on 01/28/18 due to being placed on prednisone and bactrim (dose prior was 7mg daily) patient has had a change in medication as patient is on prednisone and bactrim, and no missed doses and no change in diet Advised patient to continue on the same dose(s) and that they would only be contacted regarding dosage and follow up instructions after review with provider, if a change is needed. Written instructions given and patient verbalized understanding. Presently scheduled in 1 weeks (02/10/18) for follow up INR since patient will still be on the new medications. TOXASSURE COMPR Collected: 01/31/2018 Status: F Source: [facility] 3:31 PM [facility] REPOSITORY TYPE CODE TESTS RESULT OUT OF RANGE REFERENCE UNITS LAB L600.44727 () Normal TOXASSURE COMPR FINAL Result Comment: TOXASSURE COMP DRUG ANALYSIS,UR Test Result Flag Units Drug Present and Declared for Prescription Verification Alprazolam 58 EXPECTED ng/mg creat Alpha-hydroxyalprazolam 152 EXPECTED ng/mg creat Source of alprazolam is a scheduled prescription medication. Alpha-hydroxyalprazolam is an expected metabolite of alprazolam. Oxycodone 1711 EXPECTED ng/mg creat Oxymorphone 419 EXPECTED ng/mg creat Noroxycodone 792 EXPECTED ng/mg creat Noroxymorphone 143 EXPECTED ng/mg creat Sources of oxycodone are scheduled prescription medications. Oxymorphone, noroxycodone, and noroxymorphone are expected metabolites of oxycodone. Oxymorphone is also available as a scheduled prescription medication. Acetaminophen PRESENT EXPECTED Drug Present not Declared for Prescription Verification Methadone 1140 UNEXPECTED ng/mg creat EDDP (Methadone Mtb) 530 UNEXPECTED ng/mg creat Sources of methadone include scheduled prescription medications. EDDP is an expected metabolite of methadone. Cyclobenzaprine PRESENT UNEXPECTED Desmethylcyclobenzaprine PRESENT UNEXPECTED Desmethylcyclobenzaprine is an expected metabolite of cyclobenzaprine. Test Result Flag Units Ref Range Creatinine 194 mg/dL >=20 Declared Medications: The flagging and interpretation on this report are based on the following declared medications. Unexpected results may arise from inaccuracies in the declared medications. Note: The testing scope of this panel includes these medications: Alprazolam Oxycodone (Percocet) Note: The testing scope of this panel does not include small to moderate amounts of these reported medications: Acetaminophen (Percocet) For clinical consultation, please call . Performed At: [facility] [address] [place] [address] [id number] [facility] [id number] Performed By: #### L600.48766 #### [facility] [address] [place] [address] # [phone] PROGRESS Observed: 01/29/2018 Status: COMPLETED Source: [place] 11:37 AM [facility] REPOSITORY HNO ID: [id number] Author: Yeimi Nickerson LPN Service: (none) Author Type: (none) Type: Progress Notes Filed: 01/29/2018 11:40 AM Note Text: Pt presents for Prevnar pneumococcal 13 vaccine. Pt denies any problems at this time AND wishes to proceed. Pt tolerated inj well. Yeimi Nickerson LPN CNNURSE Observed: 01/29/2018 Status: COMPLETED Source: [place] 11:30 AM [facility] REPOSITORY Nurse Visit (FAMPWS) STEPHANIE MOORE ([id number]) 1960 F Date Time Provider Department 01/29/18 11:30 AM [place] NURSE FAMPWS During your visit today, we recorded the following information about you: Yeimi Nickerson LPN 01/29/2018 11:40 AM Signed Pt presents for Prevnar pneumococcal 13 vaccine. Pt denies any problems at this time AND wishes to proceed. Pt tolerated inj well. Yeimi Nickerson LPN Referring Provider: ANUJ HANSON [[id number]] Allergies As of Date: 01/29/2018 Noted Allergy Reaction OPIOIDS - MORPHINE ANALOGUES 08/29/2000 Comments: vicodin PENTAZOCINE 08/29/2000 Comments: talwin PROPOXYPHENE 08/29/2000 Comments: darvacet steri strips and paper tape [Othe*12/30/2006 TALACEN (PENTAZOCINE-ACETAMINOPHE*08/20/2005 1 - Mental Status Change Date Reviewed: 01/29/2018 Reviewed by: Yeimi Nickerson LPN - Fully Assessed Reason for Visit: Imm/Inj [58] Visit Diagnosis:Need for vaccination [Z23] Prescriptions as of 01/29/2018 Sig: WARFARIN 2 MG TABLET Take 1 tablet by mouth daily * MYCOPHENOLATE MOFETIL 500 MG * 1 tablet twice per day for 2 * FAMOTIDINE 20 MG TABLET Take 1 tablet by mouth twice * WARFARIN 5 MG TABLET Take 1 tablet by mouth once d* ASPIRIN 81 MG CHEWABLE TABLET Take 81 mg by mouth once jose eduardo* ATORVASTATIN 40 MG TABLET Take 40 mg by mouth. CYCLOBENZAPRINE 10 MG TABLET Take 1 tablet by mouth three * ALPRAZOLAM 1 MG TABLET Take 1 tablet by mouth at bed* METHADONE 10 MG TABLET Take three tablets , three ti* OXYCODONE-ACETAMINOPHEN 5 MG-* Take 1 tablet by mouth every * PREDNISONE 20 MG TABLET 60 mg daily for 2 weeks 50 mg* SULFAMETHOXAZOLE 800 MG-TRIME* Take 1 tablet by mouth every * Medication notes this encounter PREDNISONE 20 MG TABLET >> Yeimi Nickerson LPN 01/29/2018 11:27 AM >> YEIMI NICKERSON LPN SatJan 29, 2018 11:27 AM Hasn't started med yet SULFAMETHOXAZOLE 800 MG-TRIMETHOPRIM 160 MG TABLET >> Yeimi Nickerson LPN 01/29/2018 11:28 AM >> YEIMI NICKERSON LPN SatJan 29, 2018 11:28 AM Hasn't started med yet Problem List As Of Date 01/29/2018 Noted Resolved Reflex sympathetic dystrophy of lower limb [G90*INVALID FOR* NEURALGIA/NEURITIS NOS [VTF4526] INVALID FOR* MONONEURITIS LEG NOS [G57.90] INVALID FOR* DYSTHYMIC DISORDER [F34.1] More... ACUTE CHOLECYSTITIS [K81.0] INVALID FOR* Obesity [E66.9] INVALID FOR* De Quervain's tenosynovitis, left [M65.4] INVALID FOR* CMC arthritis [M19.049] INVALID FOR* Thumb pain [M79.646] INVALID FOR* Ischemic stroke of frontal lobe (HCC) [I63.9] INVALID FOR* Factor 5 Leiden mutation, heterozygous (HCC) [D*INVALID FOR* Anti-cardiolipin antibody positive [R76.8] INVALID FOR* Obesity, Class II, BMI 35-39.9 [E66.9] INVALID FOR* Vasculitis, MITTEN SEWER (HCC) [I77.6] INVALID FOR* More... Stenosis of right internal carotid artery [I65.*INVALID FOR* More... Encounter Status:Closed by YEIMI NICKERSON LPN on 01/29/18 PROGRESS Observed: 01/27/2018 Status: COMPLETED Source: [place] 3:13 PM [facility] REPOSITORY HNO ID: [id number] Author: Arlene Pacheco RN Service: (none) Author Type: (none) Type: Progress Notes Filed: 01/27/2018 3:13 PM Note Text: PATIENT NOTIFIED OF INFORMATION PROGRESS Observed: 01/27/2018 Status: COMPLETED Source: [place] 10:59 AM [facility] REPOSITORY HNO ID: [id number] Author: Jose Beltran Service: (none) Author Type: Physician Type: Progress Notes Filed: 01/27/2018 3:13 PM Note Text: Ask her to decrease dose to 7 mg daily beginning today and recheck INR in a week. I sent in Rx for 2 mg tablets for her to use along with 5 mg tablet. Jose Beltran DO PROGRESS Observed: 01/27/2018 Status: COMPLETED Source: [place] 8:55 AM [facility] REPOSITORY HNO ID: [id number] Author: Arlene Pacheco RN Service: (none) Author Type: (none) Type: Progress Notes Filed: 01/27/2018 8:56 AM Note Text: patient had inr completed at [facility] patients inr is 3.2 (patients inr range is 2.0-3.0) patient is currently taking 7.5mg daily patients last dose change was on 01/22/18 due to a low level of 1.7 (dose at that time was 5mg daily) patient has had no changes in medication except for coumadin and no missed doses and no change in diet Advised patient that they would be contacted regarding medication dose and when to follow up after information is reviewed by provider. After provider review please contact the patient with information and schedule follow up appointment with coumadin clinic. FYI - patient has been scheduled for a 1 week follow up inr on 02/03/18 LYLE Observed: 01/27/2018 Status: COMPLETED Source: [place] 12:00 AM [facility] REPOSITORY Telephone (RHEUMN) TERESASTEPHANIE ([id number]) 1960 F Date Time Provider Department 01/27/18 DAKSHA ALEGRE During your visit today, we recorded the following information about you: Daksha Ybarra MD 01/27/2018 4:15 PM Signed Discussed in detail with her to Dr. Macdonald. 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 She does have indirect evidence of inflammation in the CSF. Unfortunately an MRA cannot be performed because of all stimulator. Further a brain biopsy would not be diagnostic giving the large vessel vasculopathy. At this point we offered a trial with immunosuppressive therapy and follow-up with on CTA. She does understand the uncertainty of her diagnoses and she agreed to proceed him with the treatment. 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 She also have positive lupus anticoagulant and factor V. However her angiogram was not suggestive of clot pathology in her cerebral vessel. At any rate she's been treated with Coumadin. Will start the following : prednisone trial of 60 mg daily for 2 weeks 50 mg for 2 weeks 40 mg for 2 weeks 30 mg for 2 weeks 20 illigram for 2 weeks 10 mg until her follow-up Start CellCept 1 tablet twice per day for 2 weeks then 2 tablet twice per day for 2 weeks then 3 tablets twice per day. After. Bactrim Saturday, she will let her primary care physician that she is taking Bactrim giving the interaction with the Coumadin Blood tests every month I have placed the order for the blood test Recommended flu and pneumonia vaccine before her immunosuppressive medications Follow-up in late March with repeat CTA She had CT of the abdomen and she is going to send results for us to rule out any other paraneoplastic reasons Daksha Ybarra MD Allergies As of Date: 01/27/2018 Noted Allergy Reaction OPIOIDS - MORPHINE ANALOGUES 08/29/2000 Comments: vicodin PENTAZOCINE 08/29/2000 Comments: isaac PROPOXYPHENE 08/29/2000 Comments: veronica steri strips and paper tape [Othe*12/30/2006 TALDAVIDN (PENTAZOCINE-ACETAMINOPHE*08/20/2005 1 - Mental Status Change Date Reviewed: 01/10/2018 Reviewed by: Bette (Rn) CLAYTON Quiroz - Fully Assessed Reason for Visit: Treatment Planning [881] Primary Visit Diagnosis:Cerebral vasculitis [I67.7] Order(s):CBC [SQCBC] Order #: [id number] STANDING COMP METABOLIC PANEL [SQCMP] Order #: [id number] STANDING predniSONE (DELTASONE) 20 mg [id number] mg daily for 2 weeks 50 mg for 2 weeks 40 mg for 2 weeks 30 mg for 2 weeks 20 mg for 2 weeks, 10 mg until follow-upDisp: 90 tabletRfl: 2 mycophenolate Mofetil (CELLCEPT) 500 mg tablet1 tablet twice per day for 2 weeks then 2 tablet twice per day for 2 weeks then 3 tablets twice per dayDisp: 180 tabletRfl: 3 sulfamethoxazole-trimethoprim (BACTRIM DS) 800-160 mg per tabletTake 1 tablet by mouth every Saturday,Saturday,Saturday.Disp: 12 tabletRfl: 5 Prescriptions as of 01/27/2018 Sig: WARFARIN 2 MG TABLET Take 1 tablet by mouth daily * PREDNISONE 20 MG TABLET 60 mg daily for 2 weeks 50 mg* MYCOPHENOLATE MOFETIL 500 MG * 1 tablet twice per day for 2 * SULFAMETHOXAZOLE 800 MG-TRIME* Take 1 tablet by mouth every * FAMOTIDINE 20 MG TABLET Take 1 tablet by mouth twice * WARFARIN 5 MG TABLET Take 1 tablet by mouth once d* ASPIRIN 81 MG CHEWABLE TABLET Take 81 mg by mouth once jose eduardo* ATORVASTATIN 40 MG TABLET Take 40 mg by mouth. CYCLOBENZAPRINE 10 MG TABLET Take 1 tablet by mouth three * ALPRAZOLAM 1 MG TABLET Take 1 tablet by mouth at bed* METHADONE 10 MG TABLET Take three tablets , three ti* OXYCODONE-ACETAMINOPHEN 5 MG-* Take 1 tablet by mouth every * Problem List As Of Date 01/27/2018 Noted Resolved Reflex sympathetic dystrophy of lower limb [G90*INVALID FOR* NEURALGIA/NEURITIS NOS [DPU0710] INVALID FOR* MONONEURITIS LEG NOS [G57.90] INVALID FOR* DYSTHYMIC DISORDER [F34.1] More... ACUTE CHOLECYSTITIS [K81.0] INVALID FOR* Obesity [E66.9] INVALID FOR* De Quervain's tenosynovitis, left [M65.4] INVALID FOR* CMC arthritis [M19.049] INVALID FOR* Thumb pain [M79.646] INVALID FOR* Ischemic stroke of frontal lobe (HCC) [I63.9] INVALID FOR* Factor 5 Leiden mutation, heterozygous (HCC) [D*INVALID FOR* Anti-cardiolipin antibody positive [R76.8] INVALID FOR* Obesity, Class II, BMI 35-39.9 [E66.9] INVALID FOR* Vasculitis, MITTEN SEWER (HCC) [I77.6] INVALID FOR* More... Stenosis of right internal carotid artery [I65.*INVALID FOR* More... Prescriptions ordered this encounter Disp Refills Start End PREDNISONE 20 MG TABLET 90 t* 2 01/27/2018 Si mg daily for 2 weeks 50 mg for 2 weeks 40 mg for 2 weeks 30 mg for 2 weeks 20 mg for 2 weeks, 10 mg until follow-up MYCOPHENOLATE MOFETIL 500 MG TABLET 180 * 3 01/27/2018 Si tablet twice per day for 2 weeks then 2 tablet twice per day for 2 weeks then 3 tablets twice per day SULFAMETHOXAZOLE 800 MG-TRIMETHOPRIM* 12 t* 5 01/27/2018 Route: ORAL Sig: Take 1 tablet by mouth every Saturday,Saturday,Saturday. Encounter Status:Closed by DAKSHA ALEGRE MD on 01/27/18 PROGRESS Observed: 01/22/2018 Status: COMPLETED Source: [place] 2:31 PM [facility] REPOSITORY HNO ID: [id number] Author: Cindy Matthews RN Service: (none) Author Type: (none) Type: Progress Notes Filed: 01/22/2018 2:34 PM Note Text: Thank you Dr. Beltran. Patient called and left message on voicemail to call back for instructions and to make appt. PROGRESS Observed: 01/22/2018 Status: COMPLETED Source: [place] 8:12 AM [facility] REPOSITORY HNO ID: [id number] Author: Jose Beltran Service: (none) Author Type: Physician Type: Progress Notes Filed: 01/23/2018 8:01 AM Note Text: I'll manage Coumadin for her. She has a lupus anticoagulant. Please ask her to increase dose to 7.5 mg daily and recheck INR on Saturday. Jose Beltran, DO PROGRESS Observed: 01/22/2018 Status: COMPLETED Source: [place] 7:59 AM [facility] REPOSITORY HNO ID: [id number] Author: Cindy Matthews RN Service: (none) Author Type: (none) Type: Progress Notes Filed: 01/22/2018 8:08 AM Note Text: Patient had INR completed at [facility] Patient's INR is 1.6 Patient is currently taking 5mg daily (since last Saturday) Patient's last dose change was 01/05/19 due being held for angiogram on 01/15/18 No medication or diet changes since last INR visit. Advised patient that they would be contacted regarding medication dose and follow-up once reviewed by provider. After provider review, please contact patient with information and schedule follow-up appointment with coumadin clinic. Patient requested result be sent to Dr. Beltran for management. Please advise if you would prefer PCP to continue managing. FACTOR VIII:C ASSAY Collected: 01/14/2018 Status: F Source: [place] 10:59 AM [facility] REPOSITORY TYPE CODE TESTS RESULT OUT OF REFERENCE UNITS RANGE LAB FVIIIC 50-173 % Factor 80 VIII:C Assay Performed By: #### FVIIIC, LUPUSP #### [facility] [address] [address] LUPUS ANTICOAG PANEL Collected: 01/14/2018 Status: F Source: [place] 10:59 AM [facility] REPOSITORY TYPE CODE TESTS RESULT OUT OF RANGE REFERENCE UNITS LAB PSEC 9.7-13.0 sec PT Sec 10.4 LAB INR 0.9-1.3 PT INR 1.0 Result Comment: Vitamin K Antagonist (VKA) Therapeutic Range: INR 2 to 3 (Target INR of 2.5) Note: For patients treated with VKA drugs, such as warfarin, the [employer] 2012 Guideline recommends a therapeutic INR range of 2 to 3 (target INR of 2.5). This recommendation includes high-risk patients with antiphospholipid syndrome with previous arterial or venous thromboembolism, current-generation mechanical or bioprosthetic aortic heart valve replacement. Note: Patients with mechanical aortic valve replacement and additional risk factors for thromboembolic events (atrial fibrillation, previous thromboembolism, LV dysfunction, hypercoagulable conditions) or an older generation mechanical AVR (i.e., ball in-Cage) or any mechanical MVR should have a INR therapeutic range of 2.5 to 3.5 (target INR of 3). Terrance GH, et al. Chest 2012, 141:7S-47S Katya RA et al. [facility] 2017, 70: 252-289 LAB APTT 23.0-32.4 sec APTT 27.1 Result Comment: Unfractionated Heparin Therapeutic Ranges: Standard Heparin Nomogram: 53 to 78 seconds (anti-Xa level of 0.3 to 0.7 U/ml) Low Dose/ACS Nomogram: 49 to 67 seconds (anti-Xa level of 0.2 to 0.5 U/ml) Stroke Treatment Nomogram: 49 to 67 seconds (anti-Xa level of 0.2 to 0.5 U/ml) Note: The APTT therapeutic range has been determined for the current lot of laboratory APTT reagent in use throughout the [facility]. LAB PLTNEU Negative Abnormal Alert Positive PNP Result Comment: Result rechecked. LAB DRVSCN 32.7-46.7 sec DRVVT Screen 40.0 LAB DRVRAT <1.21 DRVVT Confirm Ratio 1.11 LAB DRVMIX 32.7-46.7 sec DRVVT 1:1 Mix 38.4 LAB HEXSCN 45.0-59.9 sec Hex Phase Screen High 60.8 LAB HEXMIX 41.8-54.9 sec Hex Phase Confirm High 55.0 LAB HEXDEL <9.1 delta sec Hex Phase Delta 5.8 LAB APTTSC 24.4-33.4 sec APTT Screen High 36.2 LAB IMPTT <33.2 sec Immed. PTT 1:1 Mix High 35.0 LAB 1HRPTT <35.0 sec Incub. PTT 1:1 Mix High 36.8 LAB TT <18.6 sec Thrombin Time 16.9 LAB LUPINT Interpretation (NOTE) Result Comment: Performing Pathologist: Lucy Solano MD Interpretation: Abnormal - see comment below. SIGNIFICANT FINDINGS: Lupus anticoagulant: POSITIVE Laboratory testing was performed to evaluate the presence of a lupus anticoagulant and anti-phospholipid antibodies. Both the PT and APTT results are normal. However, the APTT was elevated when tested with an alternate reagent/instrument system. The elevated APTT was not due to heparin or a direct Xa inhibitor, as an anti Xa assay was negative. A normal thrombin time (TT) makes a heparin and/or direct thrombin inhibitor effect unlikely. The factor VIII clottable activity level is normal. There is no evidence for a factor VIII inhibitor. LUPUS ANTICOAGULANT STUDIES: This specimen meets all four ISTH criteria, including a positive screening test, a positive mixing study, demonstration of phospholipid dependence and exclusion of other coagulopathies or inhibitors. The laboratory findings are diagnostic of a lupus anticoagulant. The lupus anticoagulant is a type of anti-phospholipid antibody that is considered to be a risk factor for thrombosis. Suggest retesting in 12 weeks to confirm, as lupus anticoagulants may be transient. If positive testing is observed on two or more occasions at least 12 weeks apart, this may be indicative of the antiphospholipid antibody syndrome, if observed in the correct clinical setting. ANTIPHOSPHOLIPID ANTIBODY STUDIES: One or more of the anticardiolipin antibody titers were minimally elevated. These findings are of doubtful clinical significance. Both the IgG and IgM Beta-2 Glycoprotein I antibody titers were negative. The criteria for the diagnosis of a Lupus Anticoagulant, as detailed by the Subcommittee on Lupus Anticoagulants and Anti-Phospholipid Antibodies of the Scientific and Standardization Committee of the International Society on Thrombosis and Haemostasis (ISTH), are the following: (1) A prolonged phospholipid-dependent clotting test (screening test); (2) Evidence for an inhibitor (1:1 mix of patient:normal plasma); (3) Evidence that the inhibitor is phospholipid dependent and (4) Exclusion of specific inhibitors (ie, fVIII inhibitors, direct thrombin inhibitors, or heparin). Thromb. Haemost. 74:1185 (1995). THE FOLLOWING TESTS WERE ADDED AND ARE REPORTED SEPARATELY: Factor VIII. LAB CARDG 0-9 GPL IgG Cardiolipin Ab. <9 Result Comment: <10 GPL Negative 10-40 GPL Equivocal >40 GPL Positive The following results were obtained with the [employer] Lite KARLEY IgG III BERNADINE. Cardiolipin IgG values obtained with the different manufacturers' assay methods may not be used interchangeably. The mag nitude of the reported IgG levels cannot be correlated to an endpoint titer. LAB CARDM 0-11 MPL IgM Cardiolipin High Ab. 31 Result Comment: <12 MPL Negative 12-40 MPL Equivocal >40 MPL Positive The following results were obtained with the [employer] Lite KARLEY IgM III BERNADINE. Cardiolipin IgM values obtained with different manufacturers' assay methods may not be used interchangeably. The magnitu de of the reported IgM levels cannot be correlated to an endpoint titer. LAB CARDA 0-11 APL IgA Cardiolipin Ab. <9 Result Comment: <12 APL Negative 12-40 APL Equivocal >40 APL Positive The following results were obtained with an [employer] QUANT[employer] Lite KARLEY IgA III BERNADINE. Cardiolipin IgA values obtained with different manufacturers' assay methods may not be used interchangeably. The magnitud e of the reported IgA levels cannot be correlated to an endpoint titer. LAB B2GPG <20 SGU Beta2 Glycoprot IgG <9 Result Comment: < 20 SGU Negative 20-80 SGU Low Positive > 80 SGU High Positive These results were obtained with the [employer] Lite B2 GPI IgG BERNADINE. B2 GPI IgG values obtained with different manufacturers' assay methods may not be used interchangeably. The magnitude of the repo rted IgG levels cannot be correlated to an endpoint titer. LAB B2GPM <20 SMU Beta2 Glycoprot IgM <9 Result Comment: < 20 SMU Negative 20-80 SMU Low Positive > 80 SMU High Positive These results were obtained with the [employer] Lite B2 GPI IgM BERNADINE. B2 GPI IgM values obtained with different manufacturers' assay methods may not be used interchangeably. The magnitude of the repo rted IgM levels cannot be correlated to an endpoint titer. Performed By: #### FVIIIC, LUPUSP #### [facility] [address], [place] [address] ROUTINE ANALYSIS Collected: 01/10/2018 Status: F Source: [place] (CSF) 4:40 PM [facility] REPOSITORY TYPE CODE TESTS RESULT OUT OF RANGE REFERENCE UNITS LAB CCOLR Colorless Color Colorless LAB CCLAR Clear Clarity Clear LAB SCCOLR Colorless Abnormal Suprntnt Color Test Not Alert Indicated LAB SCCLAR Clear Abnormal Suprntnt Test Not Alert Clarity Indicated LAB CRBC 0-1 /uL 0 RBC LAB CWBC 0-5 /uL 4 Nucleated Cells, CSF LAB CSFCOM CSF Comment Test Not Indicated LAB CSFREV CSF Review Test Not Indicated LAB LDWY Slide Number [id number] CSF LAB CLYMP 50-90 % High 96 Lymph% LAB CMONO 10-50 % Low 4 [place]% LAB CPROT 15-45 mg/dL 43 Protein, CSF LAB CGLUC 40-70 mg/dL 56 Glucose, CSF Result Comment: Lumbar CSF glucose values of healthy patients are approximately 60% of the plasma values and must always be compared with a concurrently measured plasma value for adequate clinical inter pretation. References: 1. Glucose HK (GLUC3) [package insert V 12.0 Tristanian]. [employer] [facility], [place], [place]. June 2015. 2. Breanna Sy, Norbert H. (2015). Chapter 7: Glucose and Lactate. F. Hannah valladares al. (eds.), Cerebrospinal Fluid in Clinical Neurology. Swisher: [employer]. Performed By: #### RTCSF, HSPCRC, VDRLCF, TOURT, OLIGO #### [facility] [address] [address] #### CVZVG, CACE, FTACSF #### [facility] [address] [place] [address] [phone] HERPES SIMPL PCR Collected: 01/10/2018 Status: F Source: [place] CSF 4:40 PM [facility] REPOSITORY TYPE CODE TESTS RESULT OUT OF REFERENCE UNITS RANGE LAB HSVSRC Cerebrospinal HSV Fluid PCR Spec Source LAB HSVONE Negative for HSV-1 Herpes Simplex Virus Type 1 by PCR LAB HSVTWO Negative for HSV-2 Herpes Simplex Virus Type 2 by PCR Performed By: #### RTCSF, HSPCRC, VDRLCF, TOURT, OLIGO #### [facility] [address] [address] #### CVZVG, CACE, FTACSF #### [facility] [address] [place] [address] [phone] VZV IGG, CSF Collected: 01/10/2018 Status: F Source: [place] 4:40 PM [facility] REPOSITORY TYPE CODE TESTS RESULT OUT OF REFERENCE UNITS RANGE LAB CSFVZV IV VZV IgG, 10 CSF Result Comment: (NOTE) INTERPRETIVE INFORMATION: VZV Ab, IgG, CSF 134 IV or Less .... Negative: No significant level of IgG antibody to varicella-zoster virus detected. 135 - 165 IV ....... Equivocal: Repeat testing in 10-14 days may be helpful. 166 IV or Greater .. Positive: IgG antibody to varicella-zoster virus detected, which may indicate a current or past varicella-zoster infection. The detection of antibodies to varicella-zoster in CSF may indicate central nervous system infection. However, consideration must be given to possible contamination by blood or transfer of serum antibodies across the blood-brain barrier. Test developed and characteristics determined by [facility]. See Compliance Statement B: [employer]/ Performed by [facility], [address] [place] [id number] www.[employer], Eulogio Pro MD, Lab. Director Performed By: #### RTCSF, HSPCRC, VDRLCF, TOURT, OLIGO #### [facility] [address] [phone] #### CVZVG, CACE, FTACSF #### [facility] [address] [address] [phone] VDRL ON CSF Collected: 01/10/2018 Status: F Source: [place] 4:40 [facility] REPOSITORY TYPE CODE TESTS RESULT OUT OF REFERENCE UNITS RANGE LAB VDRLCF Non Reactive DILS VDRL Non Reactive on CSF Performed By: #### RTCSF, HSPCRC, VDRLCF, TOURT, OLIGO #### [facility] [address] [phone] #### CVZVG, CACE, FTACSF #### [facility] [address] [address] [phone] IGG CSF INDEX Collected: 01/10/2018 Status: F Source: [place] 4:40 PM [facility] REPOSITORY TYPE CODE TESTS RESULT OUT OF REFERENCE UNITS RANGE LAB CSFG 0.6-4.2 mg/dL Immunoglobulin G High CSF 4.5 LAB CSFALB 9.3-31.3 mg/dL Albumin CSF 22.2 LAB SERIGG 717-1411 mg/dL Serum IgG 910 LAB SERALB 7646-5809 mg/dL Serum Albumin 3720 LAB TGALB 0.06-0.17 IgG/Albumin Ratio High 0.20 LAB CNSSYN 0-3.0 mg/day MITTEN SEWER IGG Synthesis High 9.4 LAB GINDEX 0-0.61 IGG Index High 0.83 Performed By: #### RTCSF, HSPCRC, VDRLCF, TOURT, OLIGO #### [address] [address] #### CVZVG, CACE, FTACSF #### [place] [address] [phone] ANGIOTEN CON ENZ,CSF Collected: 01/10/2018 Status: F Source: [place] 4:40 [facility] REPOSITORY TYPE CODE TESTS RESULT OUT OF REFERENCE UNITS RANGE LAB ACECSF 0.0-2.5 U/L Angioten Con 1.8 Enz,CSF Result Comment: (NOTE) This test was developed and its performance characteristics determined by [facility]. The U.S. Food and Drug Administration has not approved or cleared this test; however, FDA clearance or approval is not currently required for clinical use. The results are not intended to be used as the sole means for clinical diagnosis or patient management decisions. Performed by [facility], [address] [place] [id number] www.[employer], Eulogio Pro MD, Lab. Director Performed By: #### RTCSF, HSPCRC, VDRLCF, TOURT, OLIGO #### [address] [address] #### CVZVG, CACE, FTACSF #### [facility] [address] [address] [phone] FLUOR. TREP. AB CSF Collected: 01/10/2018 Status: F Source: [place] 4:40 PM [facility] REPOSITORY TYPE CODE TESTS RESULT OUT OF REFERENCE UNITS RANGE LAB FTAL Non Reactive Fluor. NON REACTIVE Trep. Ab CSF Result Comment: (NOTE) INTERPRETIVE INFORMATION: Treponema pallidum Antibody, IgG by IFA (CSF) The significance of a reactive result in the FTA-ABS CSF test is unknown. The CSF from persons treated in the secondary or latent stage of syphilis and without signs of neurosyphilis may be reactive. A nonreactive result in the FTA-ABS CSF test suggests the absence of neurosyphilis. Treponema pallidum (VDRL), Cerebrospinal Fluid with Reflex to Titer ([id number]) is the recommended test for CSF specimens. If suspicion of neurosyphilis remains after VDRL testing, testing of the CSF with FTA-ABS may be considered. Test developed and characteristics determined by [facility]. See Compliance Statement B: [employer]/ Performed by [facility], [address] [place] [address] [id number] www.[employer], Eulogio Pro MD, Lab. Director Performed By: #### RTCSF, HSPCRC, VDRLCF, TOURT, OLIGO #### [facility] [address] [address] #### CVZVG, CACE, FTACSF #### [facility] [address] [address] [phone] OLIGOCLONAL BANDING Collected: 01/10/2018 Status: F Source: [place] 4:40 PM [facility] REPOSITORY TYPE CODE TESTS RESULT OUT OF REFERENCE UNITS RANGE LAB COLIGO Oligoclonal Oligoclonal Bands bands are present in both the CSF and serum. However, the bands in the CSF are more numerous than those seen in the serum. This pattern is consistent with intrathecal synthesis of IgG, but a systemic immune reaction may also be present. LAB OLS Staff Reviewed Review by Shira Keller MD ([id number]) Performed By: #### RTCSF, HSPCRC, VDRLCF, TOURT, OLIGO #### [facility] [address] [address] #### CVZVG, CACE, FTACSF #### [facility] [address] [address] [phone] NURSING PROG Observed: 01/10/2018 Status: COMPLETED Source: [place] 4:30 PM [facility] REPOSITORY HNO ID: [id number] Author: Glenis (Rn) CLAYTON Wren Service: (none) Author Type: Registered Nurse Type: Nursing Progress Note Filed: 01/10/2018 4:31 PM Note Text: Admission/Transfer Note PATIENT NAME: Stephanie Moore Patient admitted from via stretcher in stable condition. Actions taken: Patient oriented to room, call light function, prescribed activities, Patient rights and Quiet at night. This note was completed by: Glenis Wren RN IR CEREBRAL ARCH AND Observed: 01/10/2018 Status: F Source: [place] THREE VESSEL 3:01 PM [facility] REPOSITORY * * *Final Report* * * DATE OF EXAM: Jan 10 2018 3:01PM NDA 0749 - IR CEREBRAL ARCH and THREE VESSEL / PROCEDURE REASON: Occlusion and stenosis of right carotid artery * * * * Physician Interpretation * * * * Diagnostic Cerebral Angiogram Report CLINICAL HISTORY: This patient is a 57 years -old Female who presents for a vasculitis workup after having a right fontal stroke. A diagnostic cerebral angiogram was requested to evaluate the cerebral vasculature. PROCEDURE: Diagnostic cerebral angiogram. TIME OUT TIME: 1:33PM PROCEDURE START TIME: 1:33PM PROCEDURE END TIME: 2:57 PM ATTENDING: Dwayne Holt MD BALLOON PILOT (FELLOW): Violette Baker MD, The procedure was performed by the the assistant controller, and the attending personally supervised the entire procedure. The attending performed the following procedural activities: Diagnostic cerebral angiogram. ANGIOGRAPHY MATERIALS: Diagnostic catheter: 5 Tunisian Student Ambassador II Catheter, 5 Tunisian pigtail catheter Guidewire: 0.035 inch angled tapered Glidewire. Fluoroscopic Radiation Summary: Plane A, Air Kerma: 404.0 mGy Plane B, Air Kerma: 83.8 mGy Dose Area Product (DAP): 96176.0 mGy*cm2 Fluoro time: 6:04 min:sec arterial: 125 ml of OMNIPAQUE 300 ANESTHESIA: Conscious sedation with 50 mcg fentanyl and 1 mg Versed were administered by IV with continuous monitoring by a dedicated nurse. Pulsed oximetry, cardiopulmonary monitoring and electrocardiography was performed throughout the procedure. My intra-service time was 60 minutes. TECHNIQUE: After emanuel discussion of the risks and benefits of diagnostic cerebral angiography, informed consent was obtained. The patient was brought to the angiography suite and placed in supine position. After hemodynamic monitoring was established, conscious sedation was administered by our nursing staff. The right groin was prepped and draped in the usual standard fashion, 1% lidocaine was used for local anesthetic. After fluoroscopic localization of the left femoral head, vascular access was obtained in the right common femoral artery utilizing a 4 Tunisian micropuncture set. A 5 Tunisian sheath was inserted and connected to heparinized saline flush. A 5F pigtail catheter was advanced over a PTFE wire to the ascending aorta and the wire removed. Using a power injection and views over the chest, angiographic imaging of the aortic arch was performed. A standard diagnostic catheter and wire were then fluoroscopically advanced for selective catheterization of the following vessels: Brachiocephalic vascular family: Right common carotid artery, cervical views. Right internal carotid artery, intracranial views. Standard AP, lateral and oblique views. Right external carotid artery, cranial views. Left carotid vascular family: Left common carotid artery, cervical views. Left internal carotid artery, intracranial views. Standard AP, lateral and oblique views. Left subclavian vascular family: Left vertebral artery, intracranial views. Standard AP, lateral and Kiera's views. Angiographic imaging was performed at each selected vessel with views as described above. After no further views and images were determined to be necessary, the procedure was terminated. All catheters and wires were removed from the patient. Hemostasis at the left groin was obtained by manual compression. The patient was transferred to recovery in stable condition without immediate complication. FINDINGS: AORTIC ARCH: DSA images of the aortic arch demonstrate a normal configuration of the arch and great vessels. The arch is class I. There is no significantatherosclerosis. There is no significant stenosis of the great vessels. RIGHT COMMON CAROTID ARTERY INJECTION (cervical): DSA images of the right anterior cervical circulation demonstrate normal course and caliber of the distal common carotid artery. The bifurcation is at C3. There is no significant atherosclerosis at the bifurcation by NASCET criteria.The cervical ICA has normal course and caliber. The proximal ECA and its branches demonstrate a normal course and caliber. There is no evidence of dissection or dural AV fistula. RIGHT INTERNAL CAROTID ARTERY INJECTION (cranial): DSA images of the right anterior intracranial circulation demonstrate normal course and caliber of the petrous, and cavernous segments of the internal carotid artery. There is severe supraclinoid stenosis after the origin of the PCOM artery up to the terminus with a less than 1 mm residual lumen over a 3.1 mm length significant reduction of flow into the MCA from the internal carotid artery. The ophthalmic artery origin, course and caliber are normal. There is a -type posterior communicating artery. The anterior choroidal artery is normal. M1 segment is normal. The A1 is not visualized . MCA is normal but also supplies anterior cerebral artery distribution. There is no filling across the anterior communicating artery to the contralateral KARLEY. Capillary and venous phases are normal. No aneurysm or arteriovenous malformation is identified. RIGHT EXTERNAL CAROTID ARTERY (cranial): The external carotid artery course, caliber and terminal branches are normal. The superficial temporal artery has frontal and temporal branches less than 1mm in size. No arteriovenous malformation or arteriovenous fistula is identified. LEFT COMMON CAROTID ARTERY INJECTION (cervical): DSA images of the left anterior cervical circulation demonstrate normal course and caliber of the distal common carotid artery. The bifurcation is at C3. There is no significant atherosclerosis at the bifurcation by NASCET criteria. The cervical ICA has normal course and caliber. The proximal ECA and its branches demonstrate a normal course and caliber. There is no evidence of dissection or dural AV fistula. LEFT INTERNAL CAROTID ARTERY INJECTION (cranial): DSA images of the left anterior intracranial circulation demonstrate normal course and caliber of the petrous, cavernous and supraclinoid segments of the internal carotid artery. The ophthalmic artery origin, course and caliber are normal. There is a small PCOMM artery without significant contribution to the posterior circulation. There is a 2.7 mm PCOMM infundibulum without evidence of aneurysm. The anterior choroidal artery is normal. M1 and A1 segments are normal. MCA and KARLEY distributions are normal. There is filling across the anterior communicating artery to the contralateral KARLEY with subpial collaterals to the MCA territory from the KARLEY filling of the right side. Capillary and venous phases are normal. No aneurysm or arteriovenous malformation is identified. LEFT VERTEBRAL ARTERY INJECTION: DSA images of the posterior intracranial circulation demonstrate normal course and caliber of the distal left vertebral artery. The vertebrobasilar confluence is normal. There is no reflux of contrast down the right vertebral artery. The basilar segment and apex are normal. The left PICA is normal. Bilateral AICAs are normal.. Bilateral SCAs are normal. Bilateral salesperson pianos and organs are normal subpial collateral filling of the MCA territory on the right side from right LIQUID WASTE TREATMENT PLANT OPERATOR vessels. The capillary and venous phases are normal. No aneurysm or arteriovenous malformation is identified. IMPRESSION: 1. 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 There is collateral filling of the MCA territory and KARLEY territory via subpial collaterals from the right posterior cerebral artery. The right anterior cerebral artery fills from the contralateral internal carotid artery by the ACOM artery as well as from subpial collaterals from the right MCA territory. Violette Baker MD, Endovascular Surgical Neuroradiology Fellow 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 Engine Mechanic: [facility] Transcribe Date/Time: Jan 10 2018 5:34P Dictated by : VIOLETTE BAKER MD This examination was interpreted and the report reviewed and electronically signed by: DWAYNE HOLT MD on Jan 11 2018 7:14PM EST BRIEF OP NOT Observed: 01/10/2018 Status: COMPLETED Source: [place] 2:51 PM [facility] REPOSITORY HNO ID: [id number] Author: Violette Baker (Fel) Service: Neurosurgery Author Type: Fellow Type: Brief Op Note Filed: 01/10/2018 5:48 PM Note Text: BRIEF OP/PROCEDURE NOTE NEURO INTERVENTIONAL PROCEDURE DATE: January 10, 2018 LOG ID: [id number] Surgery/Procedure Date: 01/10/2018 Incision/Procedure Start Time: 1:33 PM Incision Close/Procedure End Time: 2:57 PM Anesthesia: None PRIMARY PROCEDURALIST: Dwayne Holt M.D. BALLOON PILOT(S): Elías PROCEDURE: Diagnostic Cerebral Angiogram Indications: Stroke Access Site: [facility] PRE-PROCEDURE DIAGNOSIS: Stroke POST-PROCEDURE DIAGNOSIS: CHARLINE stenosis FINDINGS: CHARLINE supraclinoid stenosis ESTIMATED BLOOD LOSS: None COMPLICATIONS: None SPECIMENS: Not Applicable SIGNATURE: Dwayne Holt MD PATIENT NAME: Stephanie Moore DATE: January 10, 2018 TIME: 2:51 PM PAGER/CONTACT #: [phone] IR LP FOR DRAINAGE Observed: 01/10/2018 Status: F Source: [place] (PRESSURE) 2:19 PM [facility] REPOSITORY * * *Final Report* * * DATE OF EXAM: Jan 10 2018 2:19PM NDA 0853 - IR LP FOR DRAINAGE (PRESSURE) / PROCEDURE REASON: Cerebral infarction due to unspecified occlusion or stenosis of right carotid ar * * * * Physician Interpretation * * * * PROCEDURE: PROCEDURE: Diagnostic Lumbar Puncture Under Fluoroscopic Guidance HISTORY: The patient is a 57 years year old Female who presented with DOWELL, sp right frontal stroke 09/19/17 with R supraclinoid ICA stenosis, workup for vasculitis/vasculopathy. Consent: The risks, benefits, treatment options, potential complications, equipment, and personnel to be involved were discussed (including the risks of radiation exposure, contrast and anesthesia administration) with the patient. All of her questions were answered and consent was obtained. The patient indicated she was willing to proceed. General: A) Medication Reconciliation: The patient's medications and allergies were reviewed in the electronic medical record and reconciled to the proposed procedure/treatment. B) Pre-Procedure Medications: Medication #1: None C) Positioning: The patient was placed Prone on the Fluoroscopy table. D) The Lumbar dorsal soft tissues. were then sterile prepped and draped. E) Time Out: A time out was performed immediately prior to procedure start with the nursing, anesthesia and interventional team, correctly identifying the name, medical record number, procedure, anatomy (including marking of site and side), patient position, procedure consent form, relevant diagnostic and radiology test results, antibiotic administration, safety precautions, and procedure-specific equipment needs. Timeout Affirmation (if attending not present): Dr. Holt the Attending Physician was present and available for the entire procedure Timeout Time and Procedure Start Time: 1333 F) Anesthesia Type: administration of local anesthesia. Local anesthesia: 2 % lidocaine Estimated Infiltration: 10 cc G) Anesthesia Was Administered For A Total Of Versed 2mg IV x1, Fentanyl 25mcg IV x1 per Dr. Holt. H) Patient Monitoring: The nurse practitioner, the RN and Dr. Holt monitored the patient during the entire sedation period, VS stable, pain well controlled. TECHNIQUE/RESULT: A) Access Site: 20 gauge spinal needle from a left paramedian approach at the L2-L3 level. B) Counting reference: Lumbosacral junction. For the purposes of this report, L4-5 is considered the level of the iliac crest. C) Procedure Details: Using sterile procedure, local anesthesia was introduced to the skin and subcutaneous tissues as outlined above. Diagnostic LP Details: Under fluoroscopic guidance, the needle was carefully advanced into the lumbar subarachnoid space resulting in free flow of CSF. Diagnostic Volume: 22ml of CSF was withdrawn and forwarded to the lab for analysis, 2ml of that was sent with the Rheumatology Researcher Celia for a study, she collected it in real time during the procedure. Opening pressure was recorded at 17 cm H2O CSF Color: Clear Closing pressure was recorded at 5 cm H2O D) Estimated Blood Loss: 0 mls E) Type of Removed Specimens: CSF F) Number of Specimens: None Fluoroscopic Radiation Summary: Fluoroscopic guidance was performed in conjunction with the exhaust emissions automotive technician. Plane A, Air Kerma: 4.5 mGy Dose Area Product (DAP): 4489.2 mGy*cm2 Fluoro time: 0:36 min:sec Post-Procedure: Conclusion: The patient was transferred to the Radiology Recovery Room in stable condition and observed for approximately 60 minutes in Hb75, as she was held in the room for an LP and combined diagnostic cerebral angiogram to follow. Immediate Complications: None. Delayed Complications (will be reported as an addendum to the original report): None apparent at this time Procedure End Time and Sign Out Time: 1348 IMPRESSION: TECHNICALLY SUCCESSFUL DIAGNOSTIC LUMBAR PUNCTURE, L2/3 space accessed with 20g x3cm spinal needle, clear CSF 22ml removed, 2ml sent with rheumatology researcher, the rest sent to the lab. OP=17cm H2O, Closing pressure 5cm H2O Attending Physician: Dr. Holt Plate Furnace Operator: None The procedure was performed by Alejandrina Cleary CNP the assistant controller, and the attending radiologist personally supervised the entire procedure. The attending radiologist performed the following procedural activities: Entire procedure Pre procedural planning, consent, huddle/timeout, patient monitoring, sedation administration. 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 Engine Mechanic: SAM Transcribe Date/Time: Jan 10 2018 2:34P Dictated by : DWAYNE HOLT MD This examination was interpreted and the report reviewed and electronically signed by: DWAYNE HOLT MD on Jan 11 2018 7:13PM EST BRIEF OP NOT Observed: 01/10/2018 Status: COMPLETED Source: [place] 1:53 PM [facility] REPOSITORY HNO ID: [id number] Author: Alejandrina Cleary Service: (none) Author Type: Nurse Practitioner Type: Brief Op Note Filed: 01/10/2018 2:44 PM Note Text: BRIEF OP NOTE LOG ID: [id number] Surgery/Procedure Date: 01/10/2018 Incision/Procedure Start Time: 1:33 PM Incision Close/Procedure End Time: 1:48 Surgeon(s)/Proceduralist(s) and Plate Furnace Operator(s): Alejandrina Cleary NP Surgeon(s) and Role: * Dwayne Holt - Primary Procedure(s): Fluoroscopic guided lumbar puncture with local anesthesia AND moderate sedation. Supervised by Dr. Holt. Anesthesia: Versed 2mg Iv x1, Fentanyl 25mcg IV x1 Findings: L2/3 accessed, 20g x3cm spinal needle, CSF clear 22ml removed, OP= 17cm H2O, Labs sent, Closing pressure=5cm H2O Estimated Blood Loss: 0 ml Specimens: CSF clear 22ml removed, labs sent (2ml taken in person by rheumatology researcher Celia) Complications: None Pre-Op/Pre-Procedure Diagnosis: workup for ? Vasculitis, sp right sided stroke AND CHARLINE stenosis Post-Op/Post-Procedure Diagnosis: workup for ? Vasculitis, sp right sided stroke AND CHARLINE stenosis SIGNATURE: Alejandrina Cleary APRN.HATCH TENDER PATIENT NAME: Stephanie Moore DATE: January 10, 2018 TIME: 1:57 PM PAGER/CONTACT #: [phone] Observed: 01/10/2018 Status: F Source: [place] CSF CULT AND STAIN 1:47 PM [facility] REPOSITORY Sp. Request/Comment: - Specimen received in sterile container. 4CC Smear Result - No organisms seen No Polymorphonuclear Leukocytes Culture Result - No growth 14 days Performed By: #### CSFCUL #### [facility] [address] [address] Observed: 01/10/2018 Status: F Source: [place] FUNGUS CSF CULT/CAD 1:47 PM [facility] REPOSITORY Test Result - Cryptococcal antigen detection result: Negative By latex agglutination Culture Result - No Fungus isolated after 28 days Performed By: #### FUNCSF #### [facility] [address] [address] PROGRESS Observed: 01/10/2018 Status: COMPLETED Source: [place] 1:42 PM [facility] REPOSITORY HNO ID: [id number] Author: Terry MosherRn) CLAYTON Noel Service: (none) Author Type: Registered Nurse Type: Progress Notes Filed: 01/10/2018 1:44 PM Note Text: AMBULATORY PATIENT EDUCATION TOPIC: Survival Skills: s/p lumbar puncture with procedural sedation and diagnostic cerebral angiograaam READINESS TO LEARN COGNITIVE ABILITY: Alert and oriented MOTIVATION TO LEARN: Interested FAMILY SUPPORT: Unable to assess - Family not present INSTRUCTION PROVIDED TO: Patient and Caregiver PATIENT LEARNS BEST BY: Individual Instruction Written Instruction - Hand-outs Verbal Instruction FACTORS AFFECTING LEARNING: None PHYSICAL LIMITATIONS AFFECTING LEARNING: None LEARNING RESPONSE DIAGNOSIS: Vasculitis, and, 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 METHOD OF INSTRUCTION: Individual instruction Written instruction - handouts Verbal instruction PATIENT / FAMILY RESPONSE: FOLLOW-UP PLAN: Reinforce - Repeat previous content SUPPLEMENTAL MATERIAL: [facility] Handouts REFERRAL (RECOMMENDATION): None Electronically Signed By: Terry Noel RN In Department: ANGIO HISTORY PHYSICAL Observed: 01/10/2018 Status: COMPLETED Source: [place] 1:17 PM [facility] REPOSITORY [facility] ID: [id number] Author: Alejandrina Cleary Service: (none) Author Type: Nurse Practitioner Type: HANDP Filed: 01/10/2018 1:20 PM Note Text: UPDATED PROCEDURAL SEDATION HISTORY AND PHYSICAL EXAMINATION SERVICE DATE: 01/10/2018 SERVICE TIME:1317 PHYSICAL EXAM MUST BE COMPLETED ON ADMISSION PROCEDURE SCHEDULED: Procedure(s): SPINAL PUNCTURE LUMBAR DIAGNOSTIC (N/A) NON-SELECTIVE CATH PLACEMENT THORACIC AORTA W/ ANGIOGRAPHY OF THE EXTRACRANIAL CAROTID VERTEBRAL AND/OR INTRACRANIAL VESSELS BILATERAL W/ ANGIOGRAPHY OF THE CERVICOCEREBRAL ARCH (N/A) RADIOLOGY ORDER PLACED: The History and Physical (completed in the past 30 days) has been reviewed and the patient has been examined. The contents accurately reflect the patient's condition with the following additions or revisions since the HANDP was completed. Plan for LP AND diagnostic angiogram for vasculitis workup, R supraclinoid ICA stenosis s/p R frontal stroke 09/19/17 of unclear etiology. On coumadin, stopped, INR 1.2, asa 81 ASA Class: ASA Class:: Patient with mild systemic disease Examination indicates no changes. AIRWAY: Airway Visualization of Uvula: Yes Mouth opening greater than 2 fingerbreadths: Yes Neck Full Range of Motion: Yes LUNGS: Lungs clear to auscultation, Good diaphragmatic excursion CARDIAC: Normal S1 and S2; no rubs, murmurs, or gallops Provisional Diagnosis/Treatment Plan: Vasculitis workup sp right frontal stroke/ LP AND diagnostic cerebral angiogram SEDATION GOAL: Moderate This HANDP can be found in the Electronic Medical Record dated 01/01/18. SIGNATURE: Alejandrina Cleary APRN.CNP PATIENT NAME: Stephanie Moore DATE: January 10, 2018 TIME: 1:17 PM PAGER: [phone] OLIGOCLONAL BAND BLD Collected: 01/10/2018 Status: F Source: [facility] LAB ORDER 12:31 PM [facility] ONLY REPOSITORY TYPE CODE TESTS RESULT OUT OF REFERENCE UNITS RANGE LAB OLIGOB See Oligoclonal Band Oligoclonal Band Bld CSF Report. LAB ORDER ONLY Performed By: #### OLIGOB, TOURTB #### [facility] [address] [id number] [place] BLOOD (FOR Collected: 01/10/2018 Status: F Source: [place] USE WITH TOURT ORDER 12:31 PM [facility] ONLY) REPOSITORY TYPE CODE TESTS RESULT OUT OF REFERENCE UNITS RANGE LAB TOURTB See [place] CSF Blood (For use Report. with TOURT order only) Performed By: #### OLIGOB, TOURTB #### [facility] [address] [place], [place] [address] NURSING PROG Observed: 01/10/2018 Status: COMPLETED Source: [place] 12:03 PM [facility] REPOSITORY HNO ID: [id number] Author: Nicolette (Rn) CLAYTON Huertas Service: (none) Author Type: Registered Nurse Type: Nursing Progress Note Filed: 01/10/2018 12:03 PM Note Text: H/o total hysterectomy CNCNPATED Observed: 01/10/2018 Status: COMPLETED Source: [place] 12:00 AM [facility] REPOSITORY Education (Angio) SOLISSTEPHANIE Steen ([id number]) 1960 F Date Time Provider Department 01/10/18 TERRY NOEL (RN) Angio Reason for Visit: Patient Education [91] Progress Notes: Terry Noel RN, RN 01/10/2018 1:44 PM Signed AMBULATORY PATIENT EDUCATION TOPIC: Survival Skills: s/p lumbar puncture with procedural sedation and diagnostic cerebral angiograaam READINESS TO LEARN COGNITIVE ABILITY: Alert and oriented MOTIVATION TO LEARN: Interested FAMILY SUPPORT: Unable to assess - Family not present INSTRUCTION PROVIDED TO: Patient and Caregiver PATIENT LEARNS BEST BY: Individual Instruction Written Instruction - Hand-outs Verbal Instruction FACTORS AFFECTING LEARNING: None PHYSICAL LIMITATIONS AFFECTING LEARNING: None LEARNING RESPONSE DIAGNOSIS: Vasculitis, and, 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 METHOD OF INSTRUCTION: Individual instruction Written instruction - handouts Verbal instruction PATIENT / FAMILY RESPONSE: FOLLOW-UP PLAN: Reinforce - Repeat previous content SUPPLEMENTAL MATERIAL: [facility] Handouts REFERRAL (RECOMMENDATION): None Electronically Signed By: Terry Noel RN In Department: ANGIO During your visit today, we recorded the following information about you: Allergies As of Date: 01/10/2018 Noted Allergy Reaction OPIOIDS - MORPHINE ANALOGUES 08/29/2000 Comments: vicodin PENTAZOCINE 08/29/2000 Comments: talwin PROPOXYPHENE 08/29/2000 Comments: darvacet steri strips and paper tape [Othe*12/30/2006 TALACEN (PENTAZOCINE-ACETAMINOPHE*08/20/2005 1 - Mental Status Change Date Reviewed: 01/10/2018 Reviewed by: Terry (Rn) CLAYTON Noel - Fully Assessed Prescriptions as of 01/10/2018 Sig: WARFARIN 5 MG TABLET Take 1 tablet by mouth once d* ASPIRIN 81 MG CHEWABLE TABLET Take 81 mg by mouth once jose eduardo* FAMOTIDINE 20 MG TABLET Take 1 tablet by mouth twice * ATORVASTATIN 40 MG TABLET Take 40 mg by mouth. CYCLOBENZAPRINE 10 MG TABLET Take 1 tablet by mouth three * ALPRAZOLAM 1 MG TABLET Take 1 tablet by mouth at bed* METHADONE 10 MG TABLET Take three tablets , three ti* OXYCODONE-ACETAMINOPHEN 5 MG-* Take 1 tablet by mouth every * Encounter Status:Closed by TERRY NOEL on 01/10/18 CYTOLOGY Observed: 01/10/2018 Status: F Source: [place] 12:00 AM [facility] REPOSITORY Specimen originated from [facility] Specimen #: [id number] Submitting Physician: ANNE MARIE MACDONALD DO SPECIMEN SUBMITTED A: CEREBROSPINAL FLUID FINAL DIAGNOSIS A. CEREBROSPINAL FLUID Negative for malignant cells. Laureen Gong MD (Electronic Signature) CLINICAL DATA Intracranial stenosis and stroke GROSS DESCRIPTION 3cc clear colorless fluid STAINS A: CEREBROSPINAL FLUID THIN PREP Non-Sign Carpenter Date of Report: 01/13/2018 Date of Procedure: 01/10/2018 Date of Receipt: 01/10/2018 Submitted by: ANNE MARIE MACDONALD DO Location: [facility] CEREBROVASC MAIN Diagnostic interpretation performed at [facility], [address] [place] [address]. NURSING PROG Observed: 01/07/2018 Status: COMPLETED Source: [place] 9:29 AM [facility] REPOSITORY HNO ID: [id number] Author: Olivia (Rn) CLAYTON Dorsey Service: (none) Author Type: Registered Nurse Type: Nursing Progress Note Filed: 01/07/2018 9:33 AM Note Text: Pre-procedure phone calls: Contacted Stephanie Moore and confirmed appt. for Cerebral Angio scheduled on 01/10, at [facility]. I will be providing you with instructions if not followed; your procedure will be rescheduled. At the end of our conversation, I will be asking you a few questions, I will wait while you get a pen and paper. Diet: Do not eat any solid food after MN the day of/night before your procedure. Please take your routine medications with small sips of clear liquids. You may drink clear liquids until 1000, which means black coffee or water only. Medications: IF ok with your Prescribing Provider: RADIOLOGY RECOMMENDS THESE MEDICATION RESTRICTIONS Pt states she was told to stop Coumadin. Labs: Lab work needs to be drawn by 01/01 at the [facility] closest to your home or your procedure will be rescheduled. Arrival: Please bring your Photo ID and Insurance Card. A general consent may need to be signed. Arrive to 1-1 ([facility]) Admitting/Registration by 1030. Then proceed to desk QB-1 ([facility]) and check in for your procedure. Your anticipated procedure start time will be between 1200 AND 1300. Metal Numerical Tool Programmer/Transportation: How will you be arriving for your procedure? private car. If you will be arriving at [facility] via ambulance or public transportation, please call to discuss. You will need a responsible adult to accompany you to and from the procedure. Your carrier driver is required to stay with you until you are taken into the Procedure room. Recovery expectations: You will be in the recovery room post procedure for a minimum of 4-6 Hours. You will be staying overnight after the procedure. Special concerns: Do you use CPAP or BPAP? No If you use CPAP or BiPAP, please call to discuss. We do not want your procedure to be rescheduled I have a few questions for you... What is your arrival time to [facility]? 1030 What time do you stop eating food? MN What time can you have clears until? 1000 Tell me how you will be taking your medications the morning of your procedure? Has stopped Coumadin. If you have any questions please call [phone] PROGRESS Observed: 01/06/2018 Status: COMPLETED Source: [place] 4:03 PM [facility] REPOSITORY HNO ID: [id number] Author: Jose Beltran Service: (none) Author Type: Physician Type: Progress Notes Filed: 01/07/2018 1:09 PM Note Text: Diagnosis: 1) Stroke. 2) Heterozygous factor V Leiden. 3) Remote DVT. HPI: The patient is a 57-year-old female is a past medical history of DVT (1997; provoked following knee surgery) and RSD of the right knee--stable on methadone and Percocet. She developed the onset of a neurologic complex consisting of looking past people and talking to them and also drifting to the left when she was driving her car. At the prompting of her daughter she presented to emergency department at [facility]. Initial CT scan demonstrated hypoattenuation in the right frontal/temporal region consistent with subacute infarct. Patient was admitted for further workup. Carotid duplex ultrasound 09/19/2017: No significant atherosclerotic plaque or stenosis in the internal carotid arteries bilaterally. Flow within the vertebral arteries was antegrade bilaterally. Transthoracic echocardiogram Normal systolic left ventricular function with an estimated ejection fraction at 65%. There was an apical false tendon. Trivial mitral valve insufficiency as well as trivial tricuspid valve insufficiency was observed. RV pressures could not be determined secondary to technical difficulty. Diastolic function was normal. I'll contrast study was negative for right to left intra-atrial shunt. CTA head: FINDINGS: Normal bilateral petrous carotid arteries. A significant focal stenosis of the supraclinoid segment of the right internal carotid artery is noted with residual lumen diameter of 1 mm. Normal left cavernous carotid artery with a normal supraclinoid bifurcation. Normal right A1 segments of the anterior cerebral artery. Normal left A1 segments of the anterior cerebral artery. Normal intact anterior communicating artery (ACOM). Normal bilateral A2 segments of the anterior cerebral arteries. Normal right M1 and M2 segments of the middle cerebral arteries, with a normal M1 bifurcation. Normal left M1 and M2 segments of the middle cerebral arteries, with a normal M1 bifurcation. Normal right posterior communicating artery (PCOM). Normal left posterior communicating artery (PCOM). Normal bilateral vertebral arteries. Normal basilar artery with a normal basilar bifurcation. The visualized bilateral superior cerebellar (SCA) arteries are normal. Normal bilateral P1, P2 and visualized P3 segments of the posterior cerebral arteries. There is no demonstrated aneurysm of the [place]. IMPRESSION: A significant focal stenosis of the supraclinoid segment of the right internal carotid artery is noted with residual lumen diameter of 1 mm. No other significant intracranial arterial stenoses are detected. No arterial occlusions are seen. CTA neck: AORTIC ARCH: Normal visualized aortic arch. Normal origins of the brachiocephalic, left common carotid, and left subclavian arteries. RIGHT CAROTID ARTERIES: Normal right common carotid artery (CCA). Normal right common carotid bulb. Normal origin of the right internal carotid (ICA) artery without a hemodynamically significant stenosis. Normal visualized cervical portion of the right internal carotid artery. Normal origin of the right external carotid artery (ECA). LEFT CAROTID ARTERIES: Normal left common carotid artery (CCA). Normal left common carotid bulb. Normal origin of the left internal carotid (ICA) artery without a hemodynamically significant stenosis. Normal visualized cervical portion of the left internal carotid artery. Normal origin of the left external carotid artery (ECA). VERTEBRAL ARTERIES: Normal bilateral vertebral arteries. Pulmonary emphysema. MRI brain 09/23/2017: Acute ischemic infarction in the right frontal parietal region with mild subacute hemorrhagic transformation or lamellar necrosis Patient was then transferred to [facility] due to in availability of LEOPOLDO at [facility]. LEOPOLDO 10/01/2017: 1. Left ventricle: The cavity size is normal. Wall thickness is normal. The estimated ejection fraction is 55%. 2. Right ventricle: The cavity size is normal. Systolic function is normal. 3. Left atrium: No evidence of thrombus in the atrial cavity or appendage. No spontaneous echo contrast is observed. The appendage is of normal size. Emptying velocity is normal. 4. Atrial septum: Borderline aneurysmal interatrial septum with possible small patent foramen ovale by color Doppler. No interatrial shunt was observed by Bubble study. 5. Descending aorta: The descending aorta has minor luminal irregularities. 6. No significant valvular abnormalities. Lab work at that institution included a CBC done on that demonstrated white count of 8700. Hemoglobin 11.7 g/dL pill counts are 25,000. Serum creatinine 0.74 mg/dL. LDL was 80 mg/dL and the total cholesterol was 156 mg/dL. Triglycerides were 77 mg/dL. HDL was 61 mg/dL. Electrolytes were unremarkable. Pro time was 13 seconds with an INR 1.0 PTT was 32.9 seconds. Patient had a positive screening for JAMES. There was also evidence of an anticentromere antibody. Protein C, S and AT3 were normal. IgM anticardiolipin antibody was quantitated at 21 units per mL. There was no evidence of anticardiolipin IgG. Beta 2 glycoprotein were all negative. there was no evidence of a lupus anticoagulant. 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 There was no mutation or prothrombin gene. Patient was advised to continue low-dose aspirin 81 mg daily and continue warfarin on discharge. At time of initial consultation here, she had near-complete resolution of her neurologic symptoms. She still but was undergoing physical therapy as she still had a little gait imbalance. She had no unusual bleeding or unexplained bruising. Presents for ongoing hematologic management. Interim history: She underwent evaluation at [facility]. She is currently scheduled for spinal tap this coming Saturday. She was advised to stop Coumadin as of Saturday. She feels she's had full recovery from her stroke symptoms. She is back to work full-time. She's had no unusual bleeding or unexplained bruising. PMH, medications and allergies personally reviewed by me today. Any changes documented in appropriate section. ROS: Constitutional: Denies episodes of fever and night sweats. Not significantly fatigued. Normal appetite. Neuro: See above. HEENT: No recent change in voice, vision or hearing. Resp: Denies cough, wheeze and hemoptysis. Denies shortness of breath at rest. Denies OROURKE. CVS: Denies exertional chest pain, PND, orthopnea and LE edema. GI: Denies dysgeusia. Denies symptoms of stomatitis. Denies dysphagia and odynophagia. +Frequent heartburn. Denies n/v, change in bowel habits and abdominal pain. : Denies dysuria or gross hematuria. No symptoms of bladder outlet obstruction. Endo: Denies hot flashes. Denies polyuria and polydipsia. Denies heat and cold intolerance. Musculoskeletal: Denies bone, back, joint and muscular pain per se. Stable controlled symptoms of RSD right knee. Derm: Denies rash. Denies jaundice and diffuse pruritis. Heme: See above. Psych: Normal mood. PHYSICAL EXAM: Vitals: Blood pressure 134/81, pulse 62, temperature 37 ?C (98.6 ?F), temperature source Temporal Artery, weight 99.1 kg (218 lb 8 oz). Well-appearing and in no acute distress. EYES: Sclerae are anicteric bilaterally. NECK: Supple. LYMPHATIC: There is no palpable cervical, supraclavicular, axillary or inguinal adenopathy. RESPIRATORY: Inspiratory breath sounds are of normal intensity in all garcia. No rales, wheezes or rhonchi. CARDIOVASCULAR: Rhythm is regular. Normal intensity S1/S2. There is no gallop or murmur. ABDOMEN: The abdomen is nondistended. No organomegaly. No tenderness. Extremities: No swelling or edema. SKIN: No jaundice or rash. No petechiae. NEUROLOGIC: bobbin dumper II-XII are grossly intact. No focal motor weakness. MUSCULOSKELETAL: No muscle wasting. 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 Macdonald. Clinical impression is that stroke was due to vascular anomaly in the focal stenosis of the supraclinoid segment of the right internal carotid artery and not necessarily from hypercoagulable state. -Patient has a history of provoked DVT and is heterozygous for factor V Leiden. -Had elevated anticardiolipin IgM in the past. -Reviewed this information with the patient. She stopped Coumadin as of Thursday 01/11. Plan: -She will remain off Coumadin and have repeat anticardiolipin antibody titers as well as lupus anticoagulant testing on 01/20. If negative then she can discontinue anticoagulation. -Continue work up at [facility] the [facility]. Jose Beltran DO CNOVSP Observed: 01/06/2018 Status: COMPLETED Source: [place] 3:50 PM [facility] REPOSITORY Visit (SP) Office (MARVA) STEPHANIE MOORE ([id number]) 1960 F Date Time Provider Department 01/06/18 3:50 PM JOSE BELTRAN During your visit today, we recorded the following information about you: Temperature Pulse Blood pressure Weight 98.6 degrees 62/minute 134/81 99.1 kg Jose Beltrna DO 01/07/2018 1:09 PM Signed Diagnosis: 1) Stroke. 2) Heterozygous factor V Leiden. 3) Remote DVT. HPI: The patient is a 57-year-old female is a past medical history of DVT (1997; provoked following knee surgery) and RSD of the right knee--stable on methadone and Percocet. She developed the onset of a neurologic complex consisting of looking past people and talking to them and also drifting to the left when she was driving her car. At the prompting of her daughter she presented to emergency department at [facility]. Initial CT scan demonstrated hypoattenuation in the right frontal/temporal region consistent with subacute infarct. Patient was admitted for further workup. Carotid duplex ultrasound 09/19/2017: No significant atherosclerotic plaque or stenosis in the internal carotid arteries bilaterally. Flow within the vertebral arteries was antegrade bilaterally. Transthoracic echocardiogram Normal systolic left ventricular function with an estimated ejection fraction at 65%. There was an apical false tendon. Trivial mitral valve insufficiency as well as trivial tricuspid valve insufficiency was observed. RV pressures could not be determined secondary to technical difficulty. Diastolic function was normal. I'll contrast study was negative for right to left intra-atrial shunt. CTA head: FINDINGS: Normal bilateral petrous carotid arteries. A significant focal stenosis of the supraclinoid segment of the right internal carotid artery is noted with residual lumen diameter of 1 mm. Normal left cavernous carotid artery with a normal supraclinoid bifurcation. Normal right A1 segments of the anterior cerebral artery. Normal left A1 segments of the anterior cerebral artery. Normal intact anterior communicating artery (ACOM). Normal bilateral A2 segments of the anterior cerebral arteries. Normal right M1 and M2 segments of the middle cerebral arteries, with a normal M1 bifurcation. Normal left M1 and M2 segments of the middle cerebral arteries, with a normal M1 bifurcation. Normal right posterior communicating artery (PCOM). Normal left posterior communicating artery (PCOM). Normal bilateral vertebral arteries. Normal basilar artery with a normal basilar bifurcation. The visualized bilateral superior cerebellar (SCA) arteries are normal. Normal bilateral P1, P2 and visualized P3 segments of the posterior cerebral arteries. There is no demonstrated aneurysm of the [place]. IMPRESSION: A significant focal stenosis of the supraclinoid segment of the right internal carotid artery is noted with residual lumen diameter of 1 mm. No other significant intracranial arterial stenoses are detected. No arterial occlusions are seen. CTA neck: AORTIC ARCH: Normal visualized aortic arch. Normal origins of the brachiocephalic, left common carotid, and left subclavian arteries. RIGHT CAROTID ARTERIES: Normal right common carotid artery (CCA). Normal right common carotid bulb. Normal origin of the right internal carotid (ICA) artery without a hemodynamically significant stenosis. Normal visualized cervical portion of the right internal carotid artery. Normal origin of the right external carotid artery (ECA). LEFT CAROTID ARTERIES: Normal left common carotid artery (CCA). Normal left common carotid bulb. Normal origin of the left internal carotid (ICA) artery without a hemodynamically significant stenosis. Normal visualized cervical portion of the left internal carotid artery. Normal origin of the left external carotid artery (ECA). VERTEBRAL ARTERIES: Normal bilateral vertebral arteries. Pulmonary emphysema. MRI brain 09/23/2017: Acute ischemic infarction in the right frontal parietal region with mild subacute hemorrhagic transformation or lamellar necrosis Patient was then transferred to [facility] due to in availability of LEOPOLDO at [facility]. LEOPOLDO 10/01/2017: 1. Left ventricle: The cavity size is normal. Wall thickness is normal. The estimated ejection fraction is 55%. 2. Right ventricle: The cavity size is normal. Systolic function is normal. 3. Left atrium: No evidence of thrombus in the atrial cavity or appendage. No spontaneous echo contrast is observed. The appendage is of normal size. Emptying velocity is normal. 4. Atrial septum: Borderline aneurysmal interatrial septum with possible small patent foramen ovale by color Doppler. No interatrial shunt was observed by Bubble study. 5. Descending aorta: The descending aorta has minor luminal irregularities. 6. No significant valvular abnormalities. Lab work at that institution included a CBC done on that demonstrated white count of 8700. Hemoglobin 11.7 g/dL pill counts are 25,000. Serum creatinine 0.74 mg/dL. LDL was 80 mg/dL and the total cholesterol was 156 mg/dL. Triglycerides were 77 mg/dL. HDL was 61 mg/dL. Electrolytes were unremarkable. Pro time was 13 seconds with an INR 1.0 PTT was 32.9 seconds. Patient had a positive screening for JAMES. There was also evidence of an anticentromere antibody. Protein C, S and AT3 were normal. IgM anticardiolipin antibody was quantitated at 21 units per mL. There was no evidence of anticardiolipin IgG. Beta 2 glycoprotein were all negative. there was no evidence of a lupus anticoagulant. 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 There was no mutation or prothrombin gene. Patient was advised to continue low-dose aspirin 81 mg daily and continue warfarin on discharge. At time of initial consultation here, she had near-complete resolution of her neurologic symptoms. She still but was undergoing physical therapy as she still had a little gait imbalance. She had no unusual bleeding or unexplained bruising. Presents for ongoing hematologic management. Interim history: She underwent evaluation at main [facility]. She is currently scheduled for spinal tap this coming Saturday. She was advised to stop Coumadin as of Saturday. She feels she's had full recovery from her stroke symptoms. She is back to work full-time. She's had no unusual bleeding or unexplained bruising. PMH, medications and allergies personally reviewed by me today. Any changes documented in appropriate section. ROS: Constitutional: Denies episodes of fever and night sweats. Not significantly fatigued. Normal appetite. Neuro: See above. HEENT: No recent change in voice, vision or hearing. Resp: Denies cough, wheeze and hemoptysis. Denies shortness of breath at rest. Denies OROURKE. CVS: Denies exertional chest pain, PND, orthopnea and LE edema. GI: Denies dysgeusia. Denies symptoms of stomatitis. Denies dysphagia and odynophagia. +Frequent heartburn. Denies n/v, change in bowel habits and abdominal pain. : Denies dysuria or gross hematuria. No symptoms of bladder outlet obstruction. Endo: Denies hot flashes. Denies polyuria and polydipsia. Denies heat and cold intolerance. Musculoskeletal: Denies bone, back, joint and muscular pain per se. Stable controlled symptoms of RSD right knee. Derm: Denies rash. Denies jaundice and diffuse pruritis. Heme: See above. Psych: Normal mood. PHYSICAL EXAM: Vitals: Blood pressure 134/81, pulse 62, temperature 37 ?C (98.6 ?F), temperature source Temporal Artery, weight 99.1 kg (218 lb 8 oz). Well-appearing and in no acute distress. EYES: Sclerae are anicteric bilaterally. NECK: Supple. LYMPHATIC: There is no palpable cervical, supraclavicular, axillary or inguinal adenopathy. RESPIRATORY: Inspiratory breath sounds are of normal intensity in all garcia. No rales, wheezes or rhonchi. CARDIOVASCULAR: Rhythm is regular. Normal intensity S1/S2. There is no gallop or murmur. ABDOMEN: The abdomen is nondistended. No organomegaly. No tenderness. Extremities: No swelling or edema. SKIN: No jaundice or rash. No petechiae. NEUROLOGIC: bobbin dumper II-XII are grossly intact. No focal motor weakness. MUSCULOSKELETAL: No muscle wasting. 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 Macdonald. Clinical impression is that stroke was due to vascular anomaly in the focal stenosis of the supraclinoid segment of the right internal carotid artery and not necessarily from hypercoagulable state. -Patient has a history of provoked DVT and is heterozygous for factor V Leiden. -Had elevated anticardiolipin IgM in the past. -Reviewed this information with the patient. She stopped Coumadin as of Thursday 01/11. Plan: -She will remain off Coumadin and have repeat anticardiolipin antibody titers as well as lupus anticoagulant testing on 01/20. If negative then she can discontinue anticoagulation. -Continue work up at main campus [facility] the [facility]. Jose Beltran DO Referring Provider: JOSE BELTRAN [[id number]] Allergies As of Date: 01/06/2018 Noted Allergy Reaction OPIOIDS - MORPHINE ANALOGUES 08/29/2000 Comments: vicodin PENTAZOCINE 08/29/2000 Comments: talwin PROPOXYPHENE 08/29/2000 Comments: darvacet steri strips and paper tape [Othe*12/30/2006 TALACEN (PENTAZOCINE-ACETAMINOPHE*08/20/2005 1 - Mental Status Change Date Reviewed: 01/06/2018 Reviewed by: Yeimi Kilpatrick - Fully Assessed Reason for Visit: Established Patient [175] Primary Visit Diagnosis:Anti-cardiolipin antibody positive [R76.8] Other Visit Diagnoses:Factor 5 Leiden mutation, heterozygous (HCC) [D68.51] Ischemic stroke of frontal lobe (HCC) [I63.9] Order(s):LUPUS ANTICOAG PL [SQLUPUSP] Order #: [id number] FUTURE Follow-up and Disposition History Recorded Prescriptions as of 01/06/2018 Sig: ASPIRIN 81 MG CHEWABLE TABLET Take 81 mg by mouth once jose eduardo* FAMOTIDINE 20 MG TABLET Take 1 tablet by mouth twice * ATORVASTATIN 40 MG TABLET Take 40 mg by mouth. CYCLOBENZAPRINE 10 MG TABLET Take 1 tablet by mouth three * ALPRAZOLAM 1 MG TABLET Take 1 tablet by mouth at bed* METHADONE 10 MG TABLET Take three tablets , three ti* OXYCODONE-ACETAMINOPHEN 5 MG-* Take 1 tablet by mouth every * WARFARIN 5 MG TABLET Take 1 tablet by mouth once d* Medication notes this encounter WARFARIN 5 MG TABLET >> Yeimi Kilpatrick MA 01/06/2018 3:38 PM >> YEIMI KILPATRICK MA Jan 06, 2018 3:38 PM ON HOLD Problem List As Of Date 01/06/2018 Noted Resolved Reflex sympathetic dystrophy of lower limb [G90*INVALID FOR* NEURALGIA/NEURITIS NOS [LFR6187] INVALID FOR* MONONEURITIS LEG NOS [G57.90] INVALID FOR* DYSTHYMIC DISORDER [F34.1] More... ACUTE CHOLECYSTITIS [K81.0] INVALID FOR* Obesity [E66.9] INVALID FOR* De Quervain's tenosynovitis, left [M65.4] INVALID FOR* CMC arthritis [M19.049] INVALID FOR* Thumb pain [M79.646] INVALID FOR* Ischemic stroke of frontal lobe (HCC) [I63.9] INVALID FOR* Factor 5 Leiden mutation, heterozygous (HCC) [D*INVALID FOR* Anti-cardiolipin antibody positive [R76.8] INVALID FOR* Obesity, Class II, BMI 35-39.9 [E66.9] INVALID FOR* Vasculitis, MITTEN SEWER (HCC) [I77.6] INVALID FOR* More... Stenosis of right internal carotid artery [I65.*INVALID FOR* More... Encounter Status:Closed by JOSE BELTRAN DO on 01/07/18 RE-EVALUTION OT Observed: 01/06/2018 Status: F Source: [place] 9:02 AM [facility] REPOSITORY [facility] Occupational [facility] [place] 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 Please see the progress note below for an update on the occupational therapy plan of care! Subjective: Arrived and noted having follow up at [facility] for spinal tap, angiogram, and EKG and if needed a stent on . She feels about 99% back to PLOF. She noted doctor holding return to work until after results from additional medical tests are completed. Objective/Function: Completed reassessment with measurements as follows: Strength B UE: shoulder flexion: R 5/5/, L 5/5. supraspinatus: R 5/5/, L 5/5. elbow flexion: R 5/5/, L 5/5. elbow extension: R 5/5/, L 5/5. wrist extension R 5/5/, L 5/5. wrist flexion: R 5/5/, L 5/5. Movable Bulkhead Installer: R 66, L 52. lateral pinch : R 12, L 12. tripod pinch: R 13, L 9. pincer pinch: R 9, L 9. 9 hole pegboard test: R 19.83 seconds. L 29. 15 seconds. Purdue pegboard test: right hand : - trials 1: 13. - trials 2: 15. - Trials 3: 15. total: 43. percentile: 3rd. Left hand : - trials 1: 10. - trials 2: 13. - Trials 3: 11. Total:34. percentile: 2nd. Both hands: - trials 1: 10. - trials 2: 8. - Trials 3: 9. Total: 27. percentile: below 1st. R+L+Both. - trials 1: 33. - trials 2: 36. - Trials 3: 35. total: 74. percentile: below 1st. Assembly: - trials 1: 6. - trials 2: 4. - Trials 3: 6. Total: 16. percentile: below 1st. She has progress in all tasks since initial evaluation. Plan Frequency: 1-2x /Week Duration: 3 Weeks Visits in this POC: 1-2 Plan: Medical hold. She has progressed in all measurements since initial evaluation. Progress has plateaued. She does have family h/o MS and is getting further testing regarding symptoms which includes spinal tap as well as angioplasty and additional test at [facility]. Will wait to determine the need of further therapy post results of spinal tap. She will call with results. If she is doing well post results chart will be d/c'd. Goals - Goals Goal:: Stephanie to increased L case packer to within 10 lbs of R case packer to promote manipulation of self care items e.g. opening jars by d/c. -GOAL MEANT Goal:: Stephanie to increased L hand dexterity through increased performance on Purdue Pegboard test to promote increased ability to manipulate small items within normal range of L hand by d/c. Goal:: Stephanie to complete sensory re-education training of L UE to promote increased perceived touch sensation to promote safety and decrease risk of injury to L UE as measurement through two point/monofilament test by d/c.- GOAL MEANT Goal:: Stephanie to be (i) to complete small item assembly for job like tasks 9/10 trials 90% of the time to promote returning to PLOF and ability to retrun to work. Goal:: Stephanie to be (i) to return to completing all ADLs/IADLs simple cooking tasks, fastners (bra hook and buttons) as well as simple chores to promote increased (I) and ability to complete ADL/IADLs 4/5 trials 80% of the time by d/c. 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 Anticipated Interventions Anticipated Interventions: A/AAROM/PROM, Strengthening, Orthoses, Joint Protection/Energy Conservation, Ergonomic Education, Dynamic Sitting Balance, Fine Motor Coord/Jaciel, Neuro Reeducation, ADL Training, Education re assistive Equipment, Caregiver Training, Home Program Please do not hesitate to contact me at [phone] by phone or if you have questions or concerns regarding this new plan of care! Sincerely, Joanna Arambula <Electronically signed by Joanna Arambula > 01/06/18 0902 CC: LESLIE Luke; Anuj Hanson MD ARASH Signed For Medicare only, by signing this I certify the plan of care. Physicians Signature Date PROGRESS Observed: 01/03/2018 Status: COMPLETED Source: [place] 11:11 AM [facility] REPOSITORY HNO ID: [id number] Author: Jaqueline Doll Service: (none) Author Type: (none) Type: Progress Notes Filed: 01/03/2018 11:34 AM Note Text: Schedule LP and cerebral angiogram w/Dr Holt-- see orders and surgical form HOSP Observed: 01/03/2018 Status: COMPLETED Source: [place] 12:00 AM [facility] REPOSITORY Patient Update (NSEVMN) STEPHANIE MOORE ([id number]) 1960 F Date Time Provider Department 01/03/18 DWAYNE HOLT [facility] During your visit today, we recorded the following information about you: Jaqueline Doll 01/03/2018 11:34 AM Signed Schedule LP and cerebral angiogram w/Dr Holt-- see orders and surgical form Jaqueline Doll 01/03/2018 11:33 AM Addendum Pre and post angio instructions reviewed with pt including: -- pre-procedure labs to be drawn -- fasting post MN, clear liquids until 2 hrs before -- take usual meds including ASA except -- STOP Coumadin 5 days before -- carrier driver present for discharge -- at least 2-3 hrs bed rest recovery/observation -- groin angio site care -- activity restrictions (avoid strenuous, heavy lifting, submersion in water x 1 week) Allergies As of Date: 01/03/2018 Noted Allergy Reaction OPIOIDS - MORPHINE ANALOGUES 08/29/2000 Comments: vicodin PENTAZOCINE 08/29/2000 Comments: isaac PROPOXYPHENE 08/29/2000 Comments: darvacet steri strips and paper tape [Othe*12/30/2006 NORY (PENTAZOCINE-ACETAMINOPHE*08/20/2005 1 - Mental Status Change Date Reviewed: 01/01/2018 Reviewed by: Dl (Res) Iqra - Fully Assessed Order(s):SURGICAL REQUEST - ELECTIVE [[id number]] Order #: [id number]: 1 Prescriptions as of 01/03/2018 Sig: WARFARIN 5 MG TABLET Take 1 tablet by mouth once d* ASPIRIN 81 MG CHEWABLE TABLET Take 81 mg by mouth once jose eduardo* FAMOTIDINE 20 MG TABLET Take 1 tablet by mouth twice * ATORVASTATIN 40 MG TABLET Take 40 mg by mouth. CYCLOBENZAPRINE 10 MG TABLET Take 1 tablet by mouth three * ALPRAZOLAM 1 MG TABLET Take 1 tablet by mouth at bed* METHADONE 10 MG TABLET Take three tablets , three ti* OXYCODONE-ACETAMINOPHEN 5 MG-* Take 1 tablet by mouth every * Problem List As Of Date 01/03/2018 Noted Resolved Reflex sympathetic dystrophy of lower limb [G90*INVALID FOR* NEURALGIA/NEURITIS NOS [[id number]] INVALID FOR* MONONEURITIS LEG NOS [G57.90] INVALID FOR* DYSTHYMIC DISORDER [F34.1] More... ACUTE CHOLECYSTITIS [K81.0] INVALID FOR* Obesity [E66.9] INVALID FOR* De Quervain's tenosynovitis, left [M65.4] INVALID FOR* CMC arthritis [M19.049] INVALID FOR* Thumb pain [M79.646] INVALID FOR* Ischemic stroke of frontal lobe (HCC) [I63.9] INVALID FOR* Factor 5 Leiden mutation, heterozygous (HCC) [D*INVALID FOR* Anti-cardiolipin antibody positive [R76.8] INVALID FOR* Obesity, Class II, BMI 35-39.9 [E66.9] INVALID FOR* Vasculitis, MITTEN SEWER (HCC) [I77.6] INVALID FOR* More... Stenosis of right internal carotid artery [I65.*INVALID FOR* More... Other instructions from your clinician: Pre and post angio instructions reviewed with pt including: -- pre-procedure labs to be drawn -- fasting post MN, clear liquids until 2 hrs before -- take usual meds including ASA except -- STOP Coumadin 5 days before -- carrier driver present for discharge -- at least 2-3 hrs bed rest recovery/observation -- groin angio site care -- activity restrictions (avoid strenuous, heavy lifting, submersion in water x 1 week) Follow-up and Disposition History Recorded Encounter Status:Closed by JAQUELINE DOLL on 01/03/18 HOSP Observed: 01/03/2018 Status: COMPLETED Source: [place] 12:00 AM [facility] REPOSITORY Patient:Stephanie Moore MRN: <[id number]> Height:5' 4(1.626 m) Weight:218 lb 8 oz (99.111 kg) Outpatient Medications as of 01/10/18: warfarin (COUMADIN) 5 mg tablet aspirin (ZACK CHEWABLE ASPIRIN) 81 mg chewable tablet famotidine (PEPCID AC) 20 mg tablet atorvastatin (LIPITOR) 40 mg tablet cyclobenzaprine (FLEXERIL) 10 mg tablet ALPRAZolam (XANAX) 1 mg tablet methadone 10 mg tablet oxyCODONE-acetaminophen (PERCOCET) 5-325 mg tablet Admission/Clinic Administered Medications as of 01/10/18: Patient has no admission medications. Problem List: Reflex sympathetic dystrophy of lower limb [G90.529] Neuralgia, neuritis, and radiculitis, unspecified [[id number]] Mononeuritis of lower limb, unspecified [G57.90] Dysthymic disorder [F34.1] Acute cholecystitis [K81.0] Obesity [E66.9] De Quervain's tenosynovitis, left [M65.4] CMC arthritis [M19.049] Thumb pain [M79.646] Ischemic stroke of frontal lobe (HCC) [I63.9] Factor 5 Leiden mutation, heterozygous (HCC) [D68.51] Anti-cardiolipin antibody positive [R76.8] Obesity, Class II, BMI 35-39.9 [E66.9] Vasculitis, MITTEN SEWER (HCC) [I77.6] Stenosis of right internal carotid artery [I65.21] Allergies: Opioids - Morphine Analogues Pentazocine Propoxyphene steri strips and paper tape [Other] Talacen [Pentazocine-Acetaminophen] Date Verified: 01/06/18 Lab Values Lab Value Units Date High Low POTA* 4.5 mmol/L 01/01/2018 5.1 3.7 OSMAN* 43.8 % 01/01/2018 46.0 36.0 Progress Notes ([facility]): Jose Beltran DO 01/07/2018 1:09 PM Signed Diagnosis: 1) Stroke. 2) Heterozygous factor V Leiden. 3) Remote DVT. HPI: The patient is a 57-year-old female is a past medical history of DVT (1997; provoked following knee surgery) and RSD of the right knee--stable on methadone and Percocet. She developed the onset of a neurologic complex consisting of looking past people and talking to them and also drifting to the left when she was driving her car. At the prompting of her daughter she presented to emergency department at [facility]. Initial CT scan demonstrated hypoattenuation in the right frontal/temporal region consistent with subacute infarct. Patient was admitted for further workup. Carotid duplex ultrasound 09/19/2017: No significant atherosclerotic plaque or stenosis in the internal carotid arteries bilaterally. Flow within the vertebral arteries was antegrade bilaterally. Transthoracic echocardiogram Normal systolic left ventricular function with an estimated ejection fraction at 65%. There was an apical false tendon. Trivial mitral valve insufficiency as well as trivial tricuspid valve insufficiency was observed. RV pressures could not be determined secondary to technical difficulty. Diastolic function was normal. I'll contrast study was negative for right to left intra-atrial shunt. CTA head: FINDINGS: Normal bilateral petrous carotid arteries. A significant focal stenosis of the supraclinoid segment of the right internal carotid artery is noted with residual lumen diameter of 1 mm. Normal left cavernous carotid artery with a normal supraclinoid bifurcation. Normal right A1 segments of the anterior cerebral artery. Normal left A1 segments of the anterior cerebral artery. Normal intact anterior communicating artery (ACOM). Normal bilateral A2 segments of the anterior cerebral arteries. Normal right M1 and M2 segments of the middle cerebral arteries, with a normal M1 bifurcation. Normal left M1 and M2 segments of the middle cerebral arteries, with a normal M1 bifurcation. Normal right posterior communicating artery (PCOM). Normal left posterior communicating artery (PCOM). Normal bilateral vertebral arteries. Normal basilar artery with a normal basilar bifurcation. The visualized bilateral superior cerebellar (SCA) arteries are normal. Normal bilateral P1, P2 and visualized P3 segments of the posterior cerebral arteries. There is no demonstrated aneurysm of the [place] of [place]. IMPRESSION: A significant focal stenosis of the supraclinoid segment of the right internal carotid artery is noted with residual lumen diameter of 1 mm. No other significant intracranial arterial stenoses are detected. No arterial occlusions are seen. CTA neck: AORTIC ARCH: Normal visualized aortic arch. Normal origins of the brachiocephalic, left common carotid, and left subclavian arteries. RIGHT CAROTID ARTERIES: Normal right common carotid artery (CCA). Normal right common carotid bulb. Normal origin of the right internal carotid (ICA) artery without a hemodynamically significant stenosis. Normal visualized cervical portion of the right internal carotid artery. Normal origin of the right external carotid artery (ECA). LEFT CAROTID ARTERIES: Normal left common carotid artery (CCA). Normal left common carotid bulb. Normal origin of the left internal carotid (ICA) artery without a hemodynamically significant stenosis. Normal visualized cervical portion of the left internal carotid artery. Normal origin of the left external carotid artery (ECA). VERTEBRAL ARTERIES: Normal bilateral vertebral arteries. Pulmonary emphysema. MRI brain 09/23/2017: Acute ischemic infarction in the right frontal parietal region with mild subacute hemorrhagic transformation or lamellar necrosis Patient was then transferred to [facility] due to in availability of LEOPOLDO at [facility]. LEOPOLDO 10/01/2017: 1. Left ventricle: The cavity size is normal. Wall thickness is normal. The estimated ejection fraction is 55%. 2. Right ventricle: The cavity size is normal. Systolic function is normal. 3. Left atrium: No evidence of thrombus in the atrial cavity or appendage. No spontaneous echo contrast is observed. The appendage is of normal size. Emptying velocity is normal. 4. Atrial septum: Borderline aneurysmal interatrial septum with possible small patent foramen ovale by color Doppler. No interatrial shunt was observed by Bubble study. 5. Descending aorta: The descending aorta has minor luminal irregularities. 6. No significant valvular abnormalities. Lab work at that institution included a CBC done on that demonstrated white count of 8700. Hemoglobin 11.7 g/dL pill counts are 25,000. Serum creatinine 0.74 mg/dL. LDL was 80 mg/dL and the total cholesterol was 156 mg/dL. Triglycerides were 77 mg/dL. HDL was 61 mg/dL. Electrolytes were unremarkable. Pro time was 13 seconds with an INR 1.0 PTT was 32.9 seconds. Patient had a positive screening for JAMES. There was also evidence of an anticentromere antibody. Protein C, S and AT3 were normal. IgM anticardiolipin antibody was quantitated at 21 units per mL. There was no evidence of anticardiolipin IgG. Beta 2 glycoprotein were all negative. there was no evidence of a lupus anticoagulant. 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 There was no mutation or prothrombin gene. Patient was advised to continue low-dose aspirin 81 mg daily and continue warfarin on discharge. At time of initial consultation here, she had near-complete resolution of her neurologic symptoms. She still but was undergoing physical therapy as she still had a little gait imbalance. She had no unusual bleeding or unexplained bruising. Presents for ongoing hematologic management. Interim history: She underwent evaluation at main campus at the cerebrovascular center. She is currently scheduled for spinal tap this coming Saturday. She was advised to stop Coumadin as of Saturday. She feels she's had full recovery from her stroke symptoms. She is back to work full-time. She's had no unusual bleeding or unexplained bruising. PMH, medications and allergies personally reviewed by me today. Any changes documented in appropriate section. ROS: Constitutional: Denies episodes of fever and night sweats. Not significantly fatigued. Normal appetite. Neuro: See above. HEENT: No recent change in voice, vision or hearing. Resp: Denies cough, wheeze and hemoptysis. Denies shortness of breath at rest. Denies OROURKE. CVS: Denies exertional chest pain, PND, orthopnea and LE edema. GI: Denies dysgeusia. Denies symptoms of stomatitis. Denies dysphagia and odynophagia. +Frequent heartburn. Denies n/v, change in bowel habits and abdominal pain. : Denies dysuria or gross hematuria. No symptoms of bladder outlet obstruction. Endo: Denies hot flashes. Denies polyuria and polydipsia. Denies heat and cold intolerance.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 [address] [place] MEDICAL REC #: [id number] [place] [address] ADMIT DATE: SERVICE DATE: 12/13/17 Occupational Therapy Assessment ATTENDING PHY: Erin Raymundo HATCH TENDER Raw score normal for age is 32-36 correct while most errors in visual closure section COGNITION Screening Orientation: Impairment detected. Patient oriented to 4 /5 items. Was not oriented to time of day within 1 hour. Attention: [place] making test Part B: 87 seconds - intact attention. Safety/Judgment/Problem Solving: No impairment detected (identifies 3/3 appropriate solutions for emergency responses). Memory: score of 7 on Short Blessed Cognitive screen which is in normal to minimally impaired range Also noted during the evaluation: Clock drawing score of 6/7 (normal >5/7); only able to recall 5 digits forward for auditory attention; only able to recall 1/4 recent past presidents however does not vote so less likely to recall Physical Assessment Range of Motion: Within normal limits. Strength: Within normal limits. Sensation: Within normal limits. Coordination: Within normal limits. Rapid Alternating Movement: Within normal limits. Sitting Balance: Within normal limits. Head/Neck Control: Within normal limits. Endurance: Within normal limits. Mobility: Within normal limits. Hand Dominance: Right. Handicap Placard: Patient does not have a handicap placard. Road Sign Recognition/Rules of Driving: Pass. 90% correct Simulated Reaction - Braking Distance (Norms 60 ft): Reaction Distance: Average = 52.3 ft. Above Average. R foot only pedal operation method Family/Friend Interview/Survey: N/A as her dropped her off at that appointment then had to return to work Projected Adaptive Equipment Needs: none Psychosocial: Within normal limits Interventions: Evaluation HIGH Complexity Self Care/Home Management: refer to details in this report and the on the road assessment form Pain Reassessment: No pain at onset or during treatment, which does not warrant reassessment. Education: [facility] PATIENT NAME: STEPHANIE MOORE [address] [place] MEDICAL REC #: [id number] [place] [address] ADMIT DATE: SERVICE DATE: 12/13/17 Occupational Therapy Assessment ATTENDING PHY: Erin Raymundo CNP The patient's preferred learning method is: Explanation Barriers to Learning: No barriers Learning Needs: Plan of care. Safety. Functional activities/mobility. Education Provided: Plan of care. Safety issues and interventions. Driving. Safety. Audience: Patient. Mode: Explanation. Response: Applied knowledge. Verbalized understanding. Demonstrated skill. ASSESSMENT Support Structure: Support structure is good. Family member willing to assist patient. Response to Evaluation: The session was tolerated well, as evidenced by: no complaints or concerns indicated PLAN Necessity: Patient requires outpatient therapy in order to reduce Activities of Daily Living or Instrumental Activities of Daily Living assistance to a premorbid level. Patient requires occupational therapy plan in order to function in community. In order to complete the functional task portion of this assessment. The patient has been instructed to contact the clinic if any questions or problems should arise. Visit Number: Today's visit is number 1 Services: Total Billed: 150 minutes (Timed: 90, Untimed: 60) 90.00 Timed: [65021] ADL-HOME MANAGEMENT EA 15 MIN 60.00 Untimed: [36942] OT-EVALUATION HIGH COMPLEX Signed by: MONICA KELLY OT/Dayanna, CDRS, CDI/PD 12/20/2017 13:31:11 [facility] PATIENT NAME: STEPHANIE MOORE[address] [place] MEDICAL REC #: [id number] [place] [address] ADMIT DATE: SERVICE DATE: 12/13/17 Occupational Therapy Assessment ATTENDING PHY: Erin Raymundo CNP OTAR Observed: 12/13/2017 Status: UNK Source: [facility] 3:30 PM [facility] Occupational Therapy On the Road Driving Assessment Therapy Diagnosis: Rank Code Description Date of Onset 1 I63.9 Cerebral infarction, unspecified 12/20/2017 Initial Evaluation Date: 12/13/17 Evaluators: Monica Kelly, OT/L, CDRS, CDI/PD Type of Vehicle: 2011 [address]. Assistive Equipment: none Route: Metal Numerical Tool Programmer Eval Route. She drove a total of 9.9 miles while in variety of road environments including interstate highway driving. Road Conditions: clear Weather Conditions: partly cloudy Medical Diagnosis: STROKE Demographics: Age: 57Y Gender: Female OBJECTIVE / OCCUPATIONAL PERFORMANCE Stationary Assessment - Driving Range Ratings Skills Transfer In and Out Average Load Mobility Device Not tested Fasten Seatbelt Average Secondary Controls Average Primary Controls Average Accel/Decelerate Average Braking Average Backing up Average Serpentine Curves Average Figure 8 Not tested Maneuverability Not tested no problems with orienting to carrier driver evaluation vehicle Light (25mph) - Moderate Traffic(35mph) Ratings Skills Straight Aways Average Right Turns Average Left Turns Average Uses Turn Signals Average Stopsigns/Right away Average [facility] PATIENT NAME: STEPHANIE MOORE [address] MEDICAL REC #: [id number] [place] [address] ADMIT DATE: SERVICE DATE: 12/13/17 Occupational Therapy Assessment ATTENDING PHY: Erin Raymundo CNP Speed Control Average 3 Point Turn/Backing Average Signs/Markings Average Curves/[place] Average Un/Protected Traffic Lights LTurn Average On Red Lights Traffic Lights RTurn Average Following Distance Average Yielding R Away Average VisualScan/Mirrors Average Driving/Parking Shopping Parking Lot Average Pulling into Traffic Average Demonstrated no problems with light traffic driving this date including good stopping distance. Heavy Traffic (40 - 45 mph Multi-lanes) Ratings Skills Speed Control Average Devon Usage Average Changing Lanes Average Checking Blind Spots Average Space Cushion Average L Turns Above Challenge Average she demonstrated no issues when increased complexity of driving environment including increased speeds and traffic Highway (55 mph) Ratings Skills Merging Acceleration Average Following Distance Average Speed Control Average Devon Use/Change Average Blind Spots Average Signaling Average Blending/Yeilding Average Exit/Deceleration Average no problems with highway driving General Analysis Ratings Skills [facility] PATIENT NAME: STEPHANIE MOORE [address] [place] MEDICAL REC #: [id number] [place] [address] ADMIT DATE: SERVICE DATE: 12/13/17 Occupational Therapy Assessment ATTENDING PHY: Erin Raymundo CNP Follow Directions Average Atten/Concentration Average Anticipation Average Road Courtesy Average Safety Awareness Average Judgment Average Confidence Average she demonstrated consistent use of defensive driving skills throughout the drive Perception of Driving Performance: she indicated that she feels comfortable with driving again while in various situations while appropriate level of confidence also observed Psychosocial: Within normal limits Education: The patient's preferred learning method is: Explanation Barriers to Learning: No barriers Learning Needs: Safety. Functional activities/mobility. Education Provided: Safety issues and interventions. Driving. Safety. Home exercise/activity plan. Audience: Patient. Mode: Explanation. Printed material provided. Response: Applied knowledge. Verbalized understanding. Demonstrated skill. ASSESSMENT Support Structure: Support structure is good. Family member willing to assist patient. Response to Evaluation: The session was tolerated well, as evidenced by: no complaints or concerns indicated PLAN Necessity: Patient does not require outpatient therapy in order to return to premorbid environment (or reside in new living environment). Patient does not require outpatient therapy in order to reduce Activities of Daily Living or Instrumental Activities of Daily Living assistance to a premorbid level. The patient has been instructed to contact the clinic if any questions or problems should arise. Visit Number: Today's visit is number 1 [facility] PATIENT NAME: [facility]IE [facility] MEDICAL REC #: [id number] [place] [address] ADMIT DATE: SERVICE DATE: 12/13/17 Occupational Therapy Assessment ATTENDING ZOYA: Erin Raymundo HATCH TENDER Signed by: MONICA KELLY, OT/L, CDRS, CDI/PD 12/20/2017 13:37:56 [facility] PATIENT NAME: STEPHANIE MOORE [facility] [address] MEDICAL REC #: [id number] [place] [address] ADMIT DATE: SERVICE DATE: 12/13/17 Occupational Therapy Assessment ATTENDING ZOYA: Erin Raymundo CNP OTAR Observed: 12/13/2017 Status: UNK Source: [facility] 3:30 PM [facility] Occupational Therapy Community Mobility and IADL Report Performance Skills Evaluation Date: 12/13/[address] D[address] Assessment: 12/13/17 Demographics: Age: 57Y Gender: Female Summary of Results: (see attached report(s) for details) Strengths: Stephanie has been able to return to all self care and home management tasks on her own; she has a very supportive family and is very motivated to return to all activites on her own including working; she has an excellent driving record; clinically she demonstrated functional vision including as required by [facility] for far acuity and visual garcia, oculomotor skills, average visual processing time for visual perceptual screen, cognition other than as noted below, functional physical skills, knowledge of road rules/signs, and above average simulated brake reaction distance; during the behind the wheel portion, she demonstrated functional skills in variety of driving environments with no suggestions for improvement needed. Problem Areas: Stephanie had a stroke on 09/19/17 which affected her left side while at that time she indicated that she was working 30-40 hours a week of overtime including 12 hour shifts; she expects that she will be having an upcoming procedure to place a stent in her brain to assist with future stroke prevention; she has monovision correction so R eye is for near vision and L eye is for far vision which inhibits visual screeing this therapist completed; clinically she demonstrated functional vision as is required by [facility] for far acuity and visual garcia, oculomotor skills, just under for raw score normal on visual perceptual screen, she was not oriented to time of day within 1 hour, only able to recall 5 digits forward for auditory attention skills; no problems were observed during the behind the wheel portion while in various driving environments. Recommendations: Patient may resume driving with the following recommendations: Physician approval. Erin Raymundo CNP should continue to monitor Stephanie's overall medical status and assure that she maintains her current level of function for ongoing pursuit of safe operation of motor vehicle. If future concerns arise, recommend that she be seen at that time for reassessment of these skills. Restrictions. Corrective lenses when driving; long distance driving only done with other licensed carrier driver with her which she had previously preferred; do not drive when not feeling well; avoid driving when extreme weather conditions. This therapist will provide Stephanie with information regarding safe driving skills, crash avoidance, tips for monitoring driving, and when to stop driving for her reference. [facility] PATIENT NAME: STEPHANIE MOORE [address] [facility] [address] MEDICAL REC #: [id number] [place] [address] ADMIT DATE: SERVICE DATE: 12/13/17 Occupational Therapy Assessment ATTENDING ZOYA: Erin Raymundo CNP Vehicle and Equipment Needs: N/A Additional Comments: Based on Stephanie's overall performance throughout this assessment, this therapist feels confident that she is able to return to safe operation of motor vehicle while following the restrictions indicated in this report. This therapist expects that Stephanie poses minimal risk of being involved in a crash which is consistent with the majority of all drivers on the road. Date: 12/20/17 Occupational Therapist/Metal Numerical Tool Programmer Transfusion Aide signature Please Note: The results and recommendations included in the Metal Numerical Tool Programmer Evaluation Report are based on the patient's performance during the period of the evaluation and should not be relied on as absolute predictors of future performance. The conclusions and recommendations in this report are based, in part, upon the medical information available at the time. If subsequent to the issuance of this report, the patient's medical status changes in such a manner that may compromise the patient's ability as a carrier driver, this report can longer be relied upon as valid. If the patient's physical and mental status remains the same as during the evaluation period, the recommendations in the report should be considered valid for 6 months. Beyond that time, a re - evaluation may be necessary. Signed by: MONICA KELLY OT/Dayanna, S, CDI/PD 12/22/2017 16:07:58 [facility] PATIENT NAME: STEPHANIE MOORE [address] [place] MEDICAL REC #: [id number] [place] [address] ADMIT DATE: SERVICE DATE: 12/13/17 Occupational Therapy Assessment ATTENDING ZOYA: Erin Raymundo CNP PROGRESS Observed: 12/02/2017 Status: COMPLETED Source: [place] 9:41 AM [facility] REPOSITORY HNO ID: [id number] Author: Anuj Hanson Service: (none) Author Type: Physician Type: Progress Notes Filed: 12/02/2017 3:07 PM Note Text: agree RE-EVALUTION OT Observed: 12/02/2017 Status: F Source: [place] 9:29 AM [facility] REPOSITORY [facility] Occupational Therapy [facility] [address] [place] [address] Fax REEVALUATION / MEDICARE RECERTIFICATION OCCUPATIONAL THERAPY MR#: [id number] Acct: [id number] Name: STEPHANIE MOORE Rep #: [id number] : 1960 57 From: Joanna Arambula Referring Dr.: LESLIE Luke Status: REG RCR Insurance: ANTHEM Eval Date: SELF PAY INSURANCE LESLIE Villanueva, It has been my pleasure to treat STEPHANIE MOORE over the last 15 visits for Ischemic CVA. Please see the progress note below for an update on the occupational therapy plan of care! Subjective: Arrived today. Re-eval completed today as last scheduled appointment. Noted that Goes Jan.[address] Macdonald cerebrovascular surgeon. She starts driving rehab . Objective/Function: Reassessment completed today on 11/28/17. Measurements are as follows: Strength: case packer 61, L 56; lateral R 15, L 10; tripod R 12, L 10; tip pinch R 10, L 8 lbs. MMT: UE. - Shoulder flexion: R 5/5 L 4/5. - Shoulder IR: R 5/5, 5/5. - Shoulder ER: R 5/5, L 5/5. - Supraspinatus: R 4+/5, L 4/5. - Bicep: R 5/5, L 5/5. - Tricep: R 5/5, L 5/5. Sensory testing: -monofilament results: -R (1st-5th): 2.83 (normal). - L (1st-5th): 2.83 (normal). FMC and Dexterity: 9 hole pegboard: R 19.53 s, L 31.46s. Purdue Pegboard: -R 15. -L 15. - Both- 6. -Assembly- 5. Left neglect noted from direct customer service representative. Able to complete scanning without issue. Has progressed in all tasks since initial evaluation. Plan Frequency: 2x /Week Duration: 4-6 Weeks Visits in this POC: 12 Plan: continue POC for 2x4-5 weeks. Stephanie has signed release to talk with employer of getting specific work -related tasks to completed further FMC and dexterity training. OT to call to see if clinic able to get some small work-related parts of Stephanie to work on during sessions. Next 4-5 weeks to focus on FMC work related tasks and continued cognitive related concerns. Goals - Goals Goal:: Stephanie to increased L case packer to within 10 lbs of R case packer to promote manipulation of self care items e.g. opening jars by d/c. -GOAL MEANT Goal:: Stephanie to increased L hand dexterity through increased performance on Purdue Pegboard test to promote increased ability to manipulate small items within normal range of L hand by d/c. Goal:: Stephanie to complete sensory re-education training of L UE to promote increased perceived touch sensation to promote safety and decrease risk of injury to L UE as measurement through two point/monofilament test by d/c. Goal:: Stephanie to be (i) to complete small item assembly for job like tasks 9/10 trials 90% of the time to promote returning to PLFO and ability to retrun to work. Goal:: Stephanie to be (i) to return to completing all ADLs/IADLs simple cooking tasks, fastners (bra hook and buttons) as well as simple chores to promote increased (I) and ability to complete ADL/IADLs 4/5 trials 80% of the time by d/c. 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 Anticipated Interventions Anticipated Interventions: A/AAROM/PROM, Strengthening, Orthoses, Joint Protection/Energy Conservation, Ergonomic Education, Dynamic Sitting Balance, Fine Motor Coord/Jaciel, Neuro Reeducation, ADL Training, Education re assistive Equipment, Caregiver Training, Home Program Please do not hesitate to contact me at [phone] by phone or if you have questions or concerns regarding this new plan of care! Sincerely, Joanna Arambula <Electronically signed by Joanna Arambula > 12/02/17 0929 CC: LESLIE Luke; Anuj Hanson MD ARASH Signed For Medicare only, by signing this I certify the plan of care. Physicians Signature Date PROGRESS Observed: 12/02/2017 Status: COMPLETED Source: [facility] 9:16 AM [facility] REPOSITORY HNO ID: [id number] Author: Arlene Pacheco RN Service: (none) Author Type: (none) Type: Progress Notes Filed: 12/02/2017 9:19 AM Note Text: patient had inr completed at [facility] patients inr is 1.9 (patients inr range is 2.0-3.0) patient is currently taking 2.5mg Tues,Thurs,Sun and 5mg all other days patients last dose change was on 11/04/17 due to a low level of 1.6 (dose at that time was 5mg Mon,Wed,Fri and 2.5mg all other days) patient has had no changes in medication except for coumadin and no missed doses and no change in diet Advised patient to continue on the same dose(s) and that they would only be contacted regarding dosage and follow up instructions after review with provider, if a change is needed. Written instructions given and patient verbalized understanding. Presently scheduled in 2 weeks (12/16/17) for follow up INR since level is just slightly low. CNCO Observed: 11/28/2017 Status: COMPLETED Source: [facility] 12:20 PM [facility] REPOSITORY HNO ID: [id number] Author: Mammography Coordinator Service: (none) Author Type: Physician Type: Letter Filed: 12/02/2017 11:31 PM Note Text: November 28, 2017 PID: [id number] Stephanie Moore [address] [place] [address] Dear Ms. Moore, We are pleased to inform you that the results of your recent breast imaging exam on 11/28/2017 are normal. Early detection of cancer is very important. We also understand recommendations regarding breast cancer screening are controversial. Please discuss with your primary care provider which strategy is best for you and whether a mammogram is right for you. Your imaging studies and report will be kept on file at [facility] as part of your permanent medical record and are available for your continuing care. Thank you for allowing us to help in meeting your health care needs. Sincerely, Dr. Crowe Interpreting Radiologist [facility] (Normal over 40) [facility] SCREENING Observed: 11/28/2017 Status: F Source: [facility] 11:08 AM [facility] REPOSITORY * * *Final Report* * * DATE OF EXAM: Nov 28 2017 11:08AM WOW 0581 - [facility] SCREENING / PROCEDURE REASON: Breast cancer screening by mammogram * * * * Physician Interpretation * * * * RESULT: #[id number] - [facility] SCREENING BILATERAL DIGITAL SCREENING MAMMOGRAM WITH CAD: 11/28/2017 HISTORY: Breast Cancer Screening By Mammogram /Screening Mammogram - patient reports NO breast symptoms /Priors available for comparison. RESULT: TECHNIQUE: The study was acquired using full field digital technology and interpreted from soft copy. Current study was also evaluated with a Computer Aided Detection (CAD). Comparison is made to exams dated: 12/13/2015 mammogram, 12/06/2014 mammogram, 10/02/2013 mammogram - [facility], and 05/02/2012 mammogram - [facility]. There are scattered fibroglandular elements in both breasts. No significant masses, calcifications, or other findings are seen in either breast. There has been no significant interval change. IMPRESSION: NEGATIVE There is no mammographic evidence of malignancy.A 1 year screening mammogram is recommended. Macario staples/rachel:11/28/2017 12:20:21 Gear Finisher: Amanda DELATORRE)(Ria), [facility] letter sent: Normal over 40 Mammogram BI-RADS: 1 Negative Multiple national specialty organizations have released breast cancer screening guidelines for women at average risk for developing breast cancer - guidelines that are based on both evidence and opinion, yet differ on when to start and how often to screen for breast cancer. With representation from Breast Imaging, Internal Medicine, Women's Health, Family Medicine, and Medical/Surgical Oncology, the [facility] has carefully reviewed the data and reached the following consensus: 1) All women should engage in shared decision-making with their providers to decide when to start and how often to screen; 2) All women should have the opportunity to start screening mammography at age 40; 3) For women ages 45-55, we recommend annual screening mammograms; 4) For women ages 55 and over, we support both the transition from an annual to a biennial interval if this aligns more with patient's values and preferences, or continuation with annual screening; 5) All women should discuss with their providers when to stop screening mammograms. 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 Engine Mechanic: Rachel Transcribe Date/Time: Nov 28 2017 10:48A Dictated by: MACARIO CROWE MD This examination was interpreted and the report reviewed and electronically signed by: MACARIO CROWE MD on Nov 28 2017 12:20PM EST [id number] FECAL OCCULT BLD Collected: 11/28/2017 Status: F Source: [facility] 9:30 AM [facility] REPOSITORY TYPE CODE TESTS RESULT OUT OF REFERENCE UNITS RANGE LAB IFO Negative Immuno Negative FOB Result Comment: This test was developed and its performance characteristics determined by [facility]'s Nabil Chaparro [facility]ology [facility] [place] ([facility]). It has not been cleared or approved by the FDA. -[facility] is regulated under CLIA as qualified to perform high-complexity testing. This test is used for clinical purposes. It should not be regarded as investigational or for research. Performed By: #### IFOBT #### [facility] [address], [place] [address] PROGRESS Observed: 11/27/2017 Status: COMPLETED Source: [facility] 5:50 PM [facility] [place] REPOSITORY HNO ID: [id number] Author: Anuj Hanson Service: (none) Author Type: Physician Type: Progress Notes Filed: 11/27/2017 8:07 PM Note Text: Reason for Visit Patient presents with: Recheck: 3 month follow up, still having headaches Stephanie Moore is a 57 year old female who presents here today for Above Complaints.. Health Maintenance DTAP,TDAP,TD(1 - Tdap) HEPATITIS C SCREENING FECAL OCCULT BLOOD MAMMOGRAM HPI Below are excerpts from Dr. Dwayne Tran Notes: Right Frontal stroke in a patient with staring spells, headache, ? 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 And, although she has a remote hx of DVT, TTE x 2 was negative for PFO. Headache and staring spells also unexplained but (at least temporally) related to her CVA. The decision is to put a stent for the patient. She is not sure when that will be. 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 Positive, there are some visual disturbances, she cannot drive right now, December 13 she has to take a test for driving. Her eye doctor Dr Stroud noted to her that she should be good for driving but I dont have that report. The main effect of the stroke is that she is not as strong as she was in the past with the left hand. And speech. Follow up with Dr leyva on Saturday completed below is the main points of the visit While the patient does have a supraclinoid CHARLINE stenosis, the frontal defect appears embolic. And, although she has a remote hx of DVT, TTE x 2 was negative for PFO. Headache and staring spells also unexplained but (at least temporally) related to her CVA While the patient does have a supraclinoid CHARLINE stenosis, the frontal defect appears embolic. And, although she has a remote hx of DVT, TTE x 2 was negative for PFO. Headache and staring spells also unexplained but (at least temporally) related to her CVA She is taking her statin daily. pepcid is working very well for her GERD. She is taking the xanax once in a while She still has headaches. No problem-specific Assessment AND Plan notes found for this encounter. PAST MEDICAL HISTORY Diagnosis Date - DVT (deep venous thrombosis) (HCC) 2009 - Dysthymic disorder Depression (non-psychotic) - Reflex sympathetic dystrophy of the lower limb PAST SURGICAL HISTORY Procedure Laterality Date - DELIVERY ONLY X3 , low cervical - DANDC, DIAG AND/OR THERAPEUTIC Dilation AND curettage - KNEE SCOPE,DIAGNOSTIC 1996,1999 Arthroscopy, knee right X 2 - LAP CHOLECYSTECT/CHOLANGIOGRAPHY - PAST SURGICAL HISTORY OF 2004 removal spinal cord stimulator - PAST SURGICAL HISTORY OF right foot tendon release, - PAST SURGICAL HISTORY OF 07/2014 Left wrist, first dorsal compartment release - PAST SURGICAL HISTORY OF plantar fascitis - REPAIR INTERCARP/CARP-METACARP JT Left 06/29/2016 Left thumb CMC arthroplasty with ligament reconstruction and tendon interposition - REVISE MEDIAN N/CARPAL TUNNEL SURG Carpal tunnel decomp bilateral - S SPINAL CORD STIMULATOR, 1999 - TOTAL ABDOM HYSTERECTOMY Hysterectomy, IMTIAZ FAMILY HISTORY Problem Relation Age of Onset - Cancer Mother lung/brain/pancreatic - Hypertension Father - Cancer Father Colon - Arthritis Father - Heart Sister no details MVP - Arthritis Brother - Stroke Paternal Grandfather - Multiple Sclerosis Sister - No Known Problems Brother Social History Substance Use Topics - Smoking status: Former Smoker Quit date: 02/25/2004 - Smokeless tobacco: Never Used - Alcohol use No Past medical history, appointments, medications, allergies reviewed. Pertinent Lab/Diagnostic Studies are reviewed and discussed today Current Outpatient Prescriptions: - warfarin (COUMADIN) 5 mg tablet - aspirin (ZACK CHEWABLE ASPIRIN) 81 mg chewable tablet - famotidine (PEPCID AC) 20 mg tablet - atorvastatin (LIPITOR) 40 mg tablet - cyclobenzaprine (FLEXERIL) 10 mg tablet - ALPRAZolam (XANAX) 1 mg tablet - methadone 10 mg tablet - oxyCODONE-acetaminophen (PERCOCET) 5-325 mg tablet Review of Systems CONSTITUTIONAL: No fevers, chills night sweats, unintended weight loss CARDIOVASCULAR: No chest pain, dyspnea, palpitations, orthopnea, PND, ankle edema. PULM: No dyspnea, unexplained cough. GI: No dysphagia/odynophagia, problematic reflux, constipation, diarrhea, changes in stool habits, hematochezia, melena. : No new urinary complaints, including dysuria, gross hematuria or pyuria. NEURO: No new balance problems, peripheral weakness/paresthesias or numbness of concern. Physical Exam BP 114/76 Pulse 74 Resp 16 Wt 99.8 kg (220 lb) SpO2 98% BMI 37.18 kg/m? General appearance: Well appearing, alert, in no acute distress, well nourished. Skin: Skin color, texture, turgor normal, no suspicious rashes or lesions Head: Normocephalic, no masses, lesions, tenderness or abnormalities Eyes: Anicteric sclera. Pupils are equally round and reactive to light. Extraocular movements are intact. Lungs: Lungs clear to auscultation. No wheezing, rhonchi, rales Heart: RRR without murmur, gallop, or rubs. Extremities: No deformities, edema, skin discoloration, clubbing or cyanosis. Good capillary refill. ASSESSMENT/PLAN: 1. Breast cancer screening by mammogram - ICD9: V76.12, ICD10: Z12.31 (primary diagnosis) - Encouraged monthly BSE - Follow up for annual exam in one year. 2. Supraclinoid carotid artery aneurysm, small - ICD9: 442.81, ICD10: I67.1 See hpi 3. S/P stroke due to cerebrovascular disease - ICD9: V12.54, ICD10: Z86.73 See hpi 4. Factor 5 Leiden mutation, heterozygous (HCC) - ICD9: 289.81, ICD10: D68.51 Con the coumadin Wrote to Neurosurgeon, regarding work status if he has any recommendations. She is off till December 20 and after that we need to decide if she can go to work She still has ot to be completed and speech therapy to be completed ANUJ HANSON MD CNOV Observed: 11/27/2017 Status: COMPLETED Source: [facility] 5:40 PM [facility] REPOSITORY Office Visit (INTMWS) STEPHANIE MOORE ([id number]) 1960 F Date Time Provider Department 11/27/17 5:40 PM ANUJ HANSON INTMWS During your visit today, we recorded the following information about you: Pulse Respiration Blood pressure Weight 74/minute 16/minute 114/76 99.8 kg ANUJ HANSON MD 11/27/2017 8:07 PM Signed Reason for Visit Patient presents with: Recheck: 3 month follow up, still having headaches Stephanie L Scheibe is a 57 year old female who presents here today for Above Complaints.. Health Maintenance DTAP,TDAP,TD(1 - Tdap) HEPATITIS C SCREENING FECAL OCCULT BLOOD MAMMOGRAM HPI Below are excerpts from Dr. Dwayne Tran Notes: Right Frontal stroke in a patient with staring spells, headache, ? 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 And, although she has a remote hx of DVT, TTE x 2 was negative for PFO. Headache and staring spells also unexplained but (at least temporally) related to her CVA. The decision is to put a stent for the patient. She is not sure when that will be. 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 Positive, there are some visual disturbances, she cannot drive right now, December 13 she has to take a test for driving. Her eye doctor Dr Stroud noted to her that she should be good for driving but I dont have that report. The main effect of the stroke is that she is not as strong as she was in the past with the left hand. And speech. Follow up with Dr leyva on Saturday completed below is the main points of the visit While the patient does have a supraclinoid CHARLINE stenosis, the frontal defect appears embolic. And, although she has a remote hx of DVT, TTE x 2 was negative for PFO. Headache and staring spells also unexplained but (at least temporally) related to her CVA While the patient does have a supraclinoid CHARLINE stenosis, the frontal defect appears embolic. And, although she has a remote hx of DVT, TTE x 2 was negative for PFO. Headache and staring spells also unexplained but (at least temporally) related to her CVA She is taking her statin daily. pepcid is working very well for her GERD. She is taking the xanax once in a while She still has headaches. No problem-specific Assessment AND Plan notes found for this encounter. PAST MEDICAL HISTORY Diagnosis Date - DVT (deep venous thrombosis) (HCC) 2009 - Dysthymic disorder Depression (non-psychotic) - Reflex sympathetic dystrophy of the lower limb PAST SURGICAL HISTORY Procedure Laterality Date - DELIVERY ONLY X3 , low cervical - DANDC, DIAG AND/OR THERAPEUTIC Dilation AND curettage - KNEE SCOPE,DIAGNOSTIC 1996,1999 Arthroscopy, knee right X 2 - LAP CHOLECYSTECT/CHOLANGIOGRAPHY - PAST SURGICAL HISTORY OF 2004 removal spinal cord stimulator - PAST SURGICAL HISTORY OF right foot tendon release, - PAST SURGICAL HISTORY OF 07/2014 Left wrist, first dorsal compartment release - PAST SURGICAL HISTORY OF plantar fascitis - REPAIR INTERCARP/CARP-METACARP JT Left 06/29/2016 Left thumb CMC arthroplasty with ligament reconstruction and tendon interposition - REVISE MEDIAN N/CARPAL TUNNEL SURG Carpal tunnel decomp bilateral - S SPINAL CORD STIMULATOR, 1999 - TOTAL ABDOM HYSTERECTOMY Hysterectomy, IMTIAZ FAMILY HISTORY Problem Relation Age of Onset - Cancer Mother lung/brain/pancreatic - Hypertension Father - Cancer Father Colon - Arthritis Father - Heart Sister no details MVP - Arthritis Brother - Stroke Paternal Grandfather - Multiple Sclerosis Sister - No Known Problems Brother Social History Substance Use Topics - Smoking status: Former Smoker Quit date: 02/25/2004 - Smokeless tobacco: Never Used - Alcohol use No Past medical history, appointments, medications, allergies reviewed. Pertinent Lab/Diagnostic Studies are reviewed and discussed today Current Outpatient Prescriptions: - warfarin (COUMADIN) 5 mg tablet - aspirin (ZACK CHEWABLE ASPIRIN) 81 mg chewable tablet - famotidine (PEPCID AC) 20 mg tablet - atorvastatin (LIPITOR) 40 mg tablet - cyclobenzaprine (FLEXERIL) 10 mg tablet - ALPRAZolam (XANAX) 1 mg tablet - methadone 10 mg tablet - oxyCODONE-acetaminophen (PERCOCET) 5-325 mg tablet Review of Systems CONSTITUTIONAL: No fevers, chills night sweats, unintended weight loss CARDIOVASCULAR: No chest pain, dyspnea, palpitations, orthopnea, PND, ankle edema. PULM: No dyspnea, unexplained cough. GI: No dysphagia/odynophagia, problematic reflux, constipation, diarrhea, changes in stool habits, hematochezia, melena. : No new urinary complaints, including dysuria, gross hematuria or pyuria. NEURO: No new balance problems, peripheral weakness/paresthesias or numbness of concern. Physical Exam BP 114/76 Pulse 74 Resp 16 Wt 99.8 kg (220 lb) SpO2 98% BMI 37.18 kg/m? General appearance: Well appearing, alert, in no acute distress, well nourished. Skin: Skin color, texture, turgor normal, no suspicious rashes or lesions Head: Normocephalic, no masses, lesions, tenderness or abnormalities Eyes: Anicteric sclera. Pupils are equally round and reactive to light. Extraocular movements are intact. Lungs: Lungs clear to auscultation. No wheezing, rhonchi, rales Heart: RRR without murmur, gallop, or rubs. Extremities: No deformities, edema, skin discoloration, clubbing or cyanosis. Good capillary refill. ASSESSMENT/PLAN: 1. Breast cancer screening by mammogram - ICD9: V76.12, ICD10: Z12.31 (primary diagnosis) - Encouraged monthly BSE - Follow up for annual exam in one year. 2. Supraclinoid carotid artery aneurysm, small - ICD9: 442.81, ICD10: I67.1 See hpi 3. S/P stroke due to cerebrovascular disease - ICD9: V12.54, ICD10: Z86.73 See hpi 4. Factor 5 Leiden mutation, heterozygous (HCC) - ICD9: 289.81, ICD10: D68.51 Con the coumadin Wrote to Neurosurgeon, regarding work status if he has any recommendations. She is off till December 20 and after that we need to decide if she can go to work She still has ot to be completed and speech therapy to be completed ANUJ HANSON MD Referring Provider: SELF [[id number]] Allergies As of Date: 11/27/2017 Noted Allergy Reaction OPIOIDS - MORPHINE ANALOGUES 08/29/2000 Comments: vicodin PENTAZOCINE 08/29/2000 Comments: talwin PROPOXYPHENE 08/29/2000 Comments: darvacet steri strips and paper tape [Othe*12/30/2006 TALACEN (PENTAZOCINE-ACETAMINOPHE*08/20/2005 1 - Mental Status Change Date Reviewed: 11/27/2017 Reviewed by: Alejandra Adams Ma - Fully Assessed Reason for Visit: Recheck [92] Cmt: 3 month follow up, still having headaches Reason For Visit History Recorded Primary Visit Diagnosis:Breast cancer screening by mammogram [Z12.31] Other Visit Diagnoses:Supraclinoid carotid artery aneurysm, small [I67.1] S/P stroke due to cerebrovascular disease [Z86.73] Factor 5 Leiden mutation, heterozygous (HCC) [D68.51] Colon cancer screening [Z12.11] Order(s):DARWIN SCREENING [[id number]] Order #: [id number] FUTURE FECAL OCCULT BLOOD TEST [SQIFOBT] Order #: [id number] FUTURE Prescriptions as of 11/27/2017 Sig: WARFARIN 5 MG TABLET Take 1 tablet by mouth once d* ASPIRIN 81 MG CHEWABLE TABLET Take 81 mg by mouth once jose eduardo* FAMOTIDINE 20 MG TABLET Take 1 tablet by mouth twice * ATORVASTATIN 40 MG TABLET Take 40 mg by mouth. CYCLOBENZAPRINE 10 MG TABLET Take 1 tablet by mouth three * ALPRAZOLAM 1 MG TABLET Take 1 tablet by mouth at bed* METHADONE 10 MG TABLET Take three tablets , three ti* OXYCODONE-ACETAMINOPHEN 5 MG-* Take 1 tablet by mouth every * Problem List As Of Date 11/27/2017 Noted Resolved Reflex sympathetic dystrophy of lower limb [G90*INVALID FOR* NEURALGIA/NEURITIS NOS [XOU3663] INVALID FOR* MONONEURITIS LEG NOS [G57.90] INVALID FOR* DYSTHYMIC DISORDER [F34.1] More... ACUTE CHOLECYSTITIS [K81.0] INVALID FOR* Obesity [E66.9] INVALID FOR* De Quervain's tenosynovitis, left [M65.4] INVALID FOR* CMC arthritis [M19.049] INVALID FOR* Thumb pain [M79.646] INVALID FOR* Ischemic stroke of frontal lobe (HCC) [I63.9] INVALID FOR* Factor 5 Leiden mutation, heterozygous (HCC) [D*INVALID FOR* Anti-cardiolipin antibody positive [R76.8] INVALID FOR* Obesity, Class II, BMI 35-39.9 [E66.9] INVALID FOR* Encounter Status:Closed by ANUJ HANSON MD on 11/27/17 PROGRESS Observed: 11/25/2017 Status: COMPLETED Source: [facility] 1:45 PM [facility] [place] REPOSITORY HNO ID: [id number] Author: Joe Cervantes Service: (none) Author Type: Physician Type: Progress Notes Filed: 11/26/2017 9:42 AM Note Text: PERTINENT CARDIAC HISTORY PFO? - equivocal studies Obesity CVA - right frontal 09/11 Factor V Leiden DVT 2010, 1 wk post op Carotid disease - severe right ICA ADHERENCE TO GUIDELINES DAVID-I or ARB for HF with prior LVEF<40 (NQF 0081) - N/A ASA or Plavix for ASHD (NQF 0067) - met Beta brenda for ASHD with prior IL or prior LVEF<40 (NQF 0070) - N/A Beta brenda for HF with prior LVEF<40 (NQF 0083) - N/A DAVID-I or ARB for ASHD with DM or prior LVEF<40 (NQF 0066) - N/A Statin therapy for ASHD or FHL or DM - met BMI documented and plan if >25 (NQF 0421) - lifestyle recommendation form Tobacco use screening and referral (NQF 0028) - lifestyle recommendation form Recommendation for whole food, plant based diet - lifestyle recommendation form CLINICAL IMPRESSION/PLAN: Stephanie Moore had a recent stroke which is probably related to her obstructive intracranial ICA disease. There may have been a superimposed embolic phenomenon. There is no good evidence for PFO. In this setting, it is probably irrelevant. She has had no previous symptoms to suggest right to left shunting and there is an alternative reasonable explanation for her acute event. I recommend addressing the intracranial lesion in a timely fashion. Long-term, she should be continued on antiplatelet therapy and anticoagulation, given her factor V Leiden and history of unprovoked DVT. No further cardiac evaluation is recommended at this time. We discussed the importance of lifestyle management. Thank you for asking me to see and make recommendations on Stephanie Moore. This report is available to you in the shared medical record. Written and verbal health teaching given to patient, patient verbalizes understanding and agrees with treatment plan. DIAGNOSIS FOR VISIT: PFO HISTORY OF PRESENT ILLNESS Stephanie Moore is a 57-year-old woman who is seen in consultation at the request of Dr. Hanson, for recommendations regarding possible PFO. She recently had a frontal lobe stroke. She presented with left-sided disregard, inattention and slight apraxia. Workup revealed an intracranial internal carotid lesion which is to be addressed in the near future. Echocardiogram done at [facility] was normal. LEOPOLDO was recommended given her age and history of hypercoagulable state. She could not have this done at [place] [facility] due to equipment malfunction. She was transferred to [facility]. Transesophageal echo there was some equivocal. She's had headaches since her stroke, but has not had previous TIAs or problems with chronic migraines. She had a DVT in the calf following surgery. This occurred about one week after surgery and it is uncertain whether this was provoked. She's had no chest discomfort. She reports stable exercise tolerance up to the time of her stroke. She's had no orthopnea, edema, amaurosis, claudication, palpitations, syncope. ALLERGIES: ALLERGIES Allergen Reactions - Opioids - Morphine * vicodin - Pentazocine talwin - Propoxyphene darvacet - Steri Strips And Pa* - Talacen [Pentazocin* Mental Status Change CURRENT OUTPATIENT MEDICATIONS: warfarin (COUMADIN) 5 mg tablet Take 1 tablet by mouth once daily. or as directed by physician aspirin (ZACK CHEWABLE ASPIRIN) 81 mg chewable tablet Take 81 mg by mouth once daily. famotidine (PEPCID AC) 20 mg tablet Take 1 tablet by mouth twice daily. atorvastatin (LIPITOR) 40 mg tablet Take 40 mg by mouth. cyclobenzaprine (FLEXERIL) 10 mg tablet Take 1 tablet by mouth three times daily as needed. ALPRAZolam (XANAX) 1 mg tablet Take 1 tablet by mouth at bedtime as needed. methadone 10 mg tablet Take three tablets , three times daily .Pain Management Dr Bassett oxyCODONE-acetaminophen (PERCOCET) 5-325 mg tablet Take 1 tablet by mouth every 8 hours as needed for Pain. Pain Management Dr Bassett PAST MEDICAL HISTORY Diagnosis Date - DVT (deep venous thrombosis) ([facility]) 2009 - Dysthymic disorder Depression (non-psychotic) - Reflex sympathetic dystrophy of the lower limb PAST SURGICAL HISTORY Procedure Laterality Date - DELIVERY ONLY X3 , low cervical - DANDC, DIAG AND/OR THERAPEUTIC Dilation AND curettage - KNEE SCOPE,DIAGNOSTIC 1996,1999 Arthroscopy, knee right X 2 - LAP CHOLECYSTECT/CHOLANGIOGRAPHY - PAST SURGICAL HISTORY OF 2004 removal spinal cord stimulator - PAST SURGICAL HISTORY OF right foot tendon release, - PAST SURGICAL HISTORY OF 07/2014 Left wrist, first dorsal compartment release - PAST SURGICAL HISTORY OF plantar fascitis - REPAIR INTERCARP/CARP-METACARP JT Left 06/29/2016 Left thumb CMC arthroplasty with ligament reconstruction and tendon interposition - REVISE MEDIAN N/CARPAL TUNNEL SURG Carpal tunnel decomp bilateral - S SPINAL CORD STIMULATOR, 1999 - TOTAL ABDOM HYSTERECTOMY Hysterectomy, IMTIAZ FAMILY HISTORY Problem Relation Age of Onset - Cancer Mother lung/brain/pancreatic - Hypertension Father - Cancer Father Colon - Arthritis Father - Heart Sister no details MVP - Arthritis Brother - Stroke Paternal Grandfather - Multiple Sclerosis Sister - No Known Problems Brother Social History Marital status: Spouse name: Years of education: Number of children: 3 Social History Main Topics Smoking status: Former Smoker Packs/day: 0.00 Years: 0.00 Quit date: 02/25/2004 Smokeless tobacco: Never Used Alcohol use: No Drug use: No Sexual activity: Not Currently Partners with: Male Social History Narrative 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 SHEENT: No change in vision or auditory acuity. Respiratory: No productive cough. Cardiac: As noted above. GI: No melena. : No dysuria. Musculoskeletal: No myalgias. Neurologic: No strokes. Psychiatric: No depression. Endocrine: No diabetes. Hematologic: No anemia. PHYSICAL EXAMINATION: S/he is alert and in no distress VITAL SIGNS: BP 125/85 Pulse 58 Ht 5' 4.5 (1.64m) Wt 223 lb (101.2kg) BMI 37.70 kg/(m2). SHEENT: Skin is warm and dry. Pupils are round and reactive. No xanthelasmas appreciated. Pharynx is benign. There is no oral cyanosis. Neck: supple. No adenopathy or thyroid enlargement. Chest: Clear to auscultation. Trachea is midline. Air entry is equal. There is no chest wall tenderness. Cardiac: Regular rhythm. S1 and S2 are normal. PMI is nondisplaced. There is a soft systolic ejection murmur. No click is heard. Carotids are brisk without bruits. JVP is less than 10 cm. Abdomen: Soft and nontender. There are no pulsatile masses or bruits. No liver enlargement. Bowel sounds are active. : Deferred. Extremities: No edema. Pulses are intact and symmetrical. No clubbing or cyanosis. No femoral bruits. Neurologic: Trace left arm apraxia. S/he is alert and oriented x4. Musculoskeletal: No joint deformities. EKG is within normal limits. Echocardiogram at [facility] lowest was reportedly negative for ubjpe-sy-ljid shunt. There is no significant valvular disease. Carotid Doppler examination showed no extracranial disease . Angiography shows an intracranial right ICA lesion. Recent labs reviewed . Renal function is normal. LDL is 56. Transesophageal echo at [facility] showed the following : LEOPOLDO 10/01/2017: 1. Left ventricle: The cavity size is normal. Wall thickness is normal. The estimated ejection fraction is 55%. 2. Right ventricle: The cavity size is normal. Systolic function is normal. 3. Left atrium: No evidence of thrombus in the atrial cavity or appendage. No spontaneous echo contrast is observed. The appendage is of normal size. Emptying velocity is normal. 4. Atrial septum: Borderline aneurysmal interatrial septum with possible small patent foramen ovale by color Doppler. No interatrial shunt was observed by Bubble study. 5. Descending aorta: The descending aorta has minor luminal irregularities. 6. No significant valvular abnormalities. This study was reviewed personally and quality is suboptimal. The saline contrast study was suboptimal. The ascending aorta and arch were not documented. Electronically Signed: Joe Cervantes MD November 25, 2017 1:45 PM CC: ANUJ HANSON MD CNOV Observed: 11/25/2017 Status: COMPLETED Source: [place] 12:45 PM [facility] REPOSITORY Office Visit (CAWSTR) STEPHANIE MOORE ([id number]) 1960 F Date Time Provider Department 11/25/17 12:45 PM JOE CERVANTESTR During your visit today, we recorded the following information about you: Pulse Blood pressure Weight Height 58/minute 125/85 101.2 kg 1.638 m Joe Cervantes MD 11/26/2017 9:42 AM Signed PERTINENT CARDIAC HISTORY PFO? - equivocal studies Obesity CVA - right frontal 09/11 Factor V Leiden DVT 2010, 1 wk post op Carotid disease - severe right ICA ADHERENCE TO GUIDELINES DAVID-I or ARB for HF with prior LVEF<40 (NQF 0081) - N/A ASA or Plavix for ASHD (NQF 0067) - met Beta brenda for ASHD with prior IL or prior LVEF<40 (NQF 0070) - N/A Beta brenda for HF with prior LVEF<40 (NQF 0083) - N/A DAVID-I or ARB for ASHD with DM or prior LVEF<40 (NQF 0066) - N/A Statin therapy for ASHD or FHL or DM - met BMI documented and plan if >25 (NQF 0421) - lifestyle recommendation form Tobacco use screening and referral (NQF 0028) - lifestyle recommendation form Recommendation for whole food, plant based diet - lifestyle recommendation form CLINICAL IMPRESSION/PLAN: Stephanie Moore had a recent stroke which is probably related to her obstructive intracranial ICA disease. There may have been a superimposed embolic phenomenon. There is no good evidence for PFO. In this setting, it is probably irrelevant. She has had no previous symptoms to suggest right to left shunting and there is an alternative reasonable explanation for her acute event. I recommend addressing the intracranial lesion in a timely fashion. Long-term, she should be continued on antiplatelet therapy and anticoagulation, given her factor V Leiden and history of unprovoked DVT. No further cardiac evaluation is recommended at this time. We discussed the importance of lifestyle management. Thank you for asking me to see and make recommendations on Stephanie Moore. This report is available to you in the shared medical record. Written and verbal health teaching given to patient, patient verbalizes understanding and agrees with treatment plan. DIAGNOSIS FOR VISIT: PFO HISTORY OF PRESENT ILLNESS Stephanie Moore is a 57-year-old woman who is seen in consultation at the request of Dr. Hanson, for recommendations regarding possible PFO. She recently had a frontal lobe stroke. She presented with left-sided disregard, inattention and slight apraxia. Workup revealed an intracranial internal carotid lesion which is to be addressed in the near future. Echocardiogram done at [facility] was normal. LEOPOLDO was recommended given her age and history of hypercoagulable state. She could not have this done at [place] due to equipment malfunction. She was transferred to [facility]. Transesophageal echo there was some equivocal. She's had headaches since her stroke, but has not had previous TIAs or problems with chronic migraines. She had a DVT in the calf following surgery. This occurred about one week after surgery and it is uncertain whether this was provoked. She's had no chest discomfort. She reports stable exercise tolerance up to the time of her stroke. She's had no orthopnea, edema, amaurosis, claudication, palpitations, syncope. ALLERGIES: ALLERGIES Allergen Reactions - Opioids - Morphine * vicodin - Pentazocine talwin - Propoxyphene darvacet - Steri Strips And Pa* - Talacen [Pentazocin* Mental Status Change CURRENT OUTPATIENT MEDICATIONS: warfarin (COUMADIN) 5 mg tablet Take 1 tablet by mouth once daily. or as directed by physician aspirin (ZACK CHEWABLE ASPIRIN) 81 mg chewable tablet Take 81 mg by mouth once daily. famotidine (PEPCID AC) 20 mg tablet Take 1 tablet by mouth twice daily. atorvastatin (LIPITOR) 40 mg tablet Take 40 mg by mouth. cyclobenzaprine (FLEXERIL) 10 mg tablet Take 1 tablet by mouth three times daily as needed. ALPRAZolam (XANAX) 1 mg tablet Take 1 tablet by mouth at bedtime as needed. methadone 10 mg tablet Take three tablets , three times daily .Pain Management Dr Bassett oxyCODONE-acetaminophen (PERCOCET) 5-325 mg tablet Take 1 tablet by mouth every 8 hours as needed for Pain. Pain Management Dr Bassett PAST MEDICAL HISTORY Diagnosis Date - DVT (deep venous thrombosis) ([facility]) 2009 - Dysthymic disorder Depression (non-psychotic) - Reflex sympathetic dystrophy of the lower limb PAST SURGICAL HISTORY Procedure Laterality Date - DELIVERY ONLY X3 , low cervical - DANDC, DIAG AND/OR THERAPEUTIC Dilation AND curettage - KNEE SCOPE,DIAGNOSTIC 1996,1999 Arthroscopy, knee right X 2 - LAP CHOLECYSTECT/CHOLANGIOGRAPHY - PAST SURGICAL HISTORY OF 2004 removal spinal cord stimulator - PAST SURGICAL HISTORY OF right foot tendon release, - PAST SURGICAL HISTORY OF 07/2014 Left wrist, first dorsal compartment release - PAST SURGICAL HISTORY OF plantar fascitis - REPAIR INTERCARP/CARP-METACARP JT Left 06/29/2016 Left thumb CMC arthroplasty with ligament reconstruction and tendon interposition - REVISE MEDIAN N/CARPAL TUNNEL SURG Carpal tunnel decomp bilateral - S SPINAL CORD STIMULATOR, 1999 - TOTAL ABDOM HYSTERECTOMY Hysterectomy, IMTIAZ FAMILY HISTORY Problem Relation Age of Onset - Cancer Mother lung/brain/pancreatic - Hypertension Father - Cancer Father Colon - Arthritis Father - Heart Sister no details MVP - Arthritis Brother - Stroke Paternal Grandfather - Multiple Sclerosis Sister - No Known Problems Brother Social History Marital status: Spouse name: Years of education: Number of children: 3 Social History Main Topics Smoking status: Former Smoker Packs/day: 0.00 Years: 0.00 Quit date: 02/25/2004 Smokeless tobacco: Never Used Alcohol use: No Drug use: No Sexual activity: Not Currently Partners with: Male Social History Narrative 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 SHEENT: No change in vision or auditory acuity. Respiratory: No productive cough. Cardiac: As noted above. GI: No melena. : No dysuria. Musculoskeletal: No myalgias. Neurologic: No strokes. Psychiatric: No depression. Endocrine: No diabetes. Hematologic: No anemia. PHYSICAL EXAMINATION: S/he is alert and in no distress VITAL SIGNS: BP 125/85 Pulse 58 Ht 5' 4.5 (1.64m) Wt 223 lb (101.2kg) BMI 37.70 kg/(m2). SHEENT: Skin is warm and dry. Pupils are round and reactive. No xanthelasmas appreciated. Pharynx is benign. There is no oral cyanosis. Neck: supple. No adenopathy or thyroid enlargement. Chest: Clear to auscultation. Trachea is midline. Air entry is equal. There is no chest wall tenderness. Cardiac: Regular rhythm. S1 and S2 are normal. PMI is nondisplaced. There is a soft systolic ejection murmur. No click is heard. Carotids are brisk without bruits. JVP is less than 10 cm. Abdomen: Soft and nontender. There are no pulsatile masses or bruits. No liver enlargement. Bowel sounds are active. : Deferred. Extremities: No edema. Pulses are intact and symmetrical. No clubbing or cyanosis. No femoral bruits. Neurologic: Trace left arm apraxia. S/he is alert and oriented x4. Musculoskeletal: No joint deformities. EKG is within normal limits. Echocardiogram at [facility] lowest was reportedly negative for ziyig-rh-kxnw shunt. There is no significant valvular disease. Carotid Doppler examination showed no extracranial disease . Angiography shows an intracranial right ICA lesion. Recent labs reviewed . Renal function is normal. LDL is 56. Transesophageal echo at [facility] showed the following : LEOPOLDO 10/01/2017: 1. Left ventricle: The cavity size is normal. Wall thickness is normal. The estimated ejection fraction is 55%. 2. Right ventricle: The cavity size is normal. Systolic function is normal. 3. Left atrium: No evidence of thrombus in the atrial cavity or appendage. No spontaneous echo contrast is observed. The appendage is of normal size. Emptying velocity is normal. 4. Atrial septum: Borderline aneurysmal interatrial septum with possible small patent foramen ovale by color Doppler. No interatrial shunt was observed by Bubble study. 5. Descending aorta: The descending aorta has minor luminal irregularities. 6. No significant valvular abnormalities. This study was reviewed personally and quality is suboptimal. The saline contrast study was suboptimal. The ascending aorta and arch were not documented. Electronically Signed: Joe Cervantes MD November 25, 2017 1:45 PM CC: ANUJ HANSON MD Referring Provider: BERHANE LUKE ([facility]) [[id number]] Allergies As of Date: 11/25/2017 Noted Allergy Reaction OPIOIDS - MORPHINE ANALOGUES 08/29/2000 Comments: vicodin PENTAZOCINE 08/29/2000 Comments: talwin PROPOXYPHENE 08/29/2000 Comments: darvacet steri strips and paper tape [Othe*12/30/2006 TALACEN (PENTAZOCINE-ACETAMINOPHE*08/20/2005 1 - Mental Status Change Date Reviewed: 11/25/2017 Reviewed by: Sydnie Strong MA - Fully Assessed Reason for Visit: Establish Care [42] Primary Visit Diagnosis:Cerebrovascular accident (CVA), unspecified mechanism (HCC) [I63.9] Prescriptions as of 11/25/2017 Sig: WARFARIN 5 MG TABLET Take 1 tablet by mouth once d* ASPIRIN 81 MG CHEWABLE TABLET Take 81 mg by mouth once jose eduardo* FAMOTIDINE 20 MG TABLET Take 1 tablet by mouth twice * ATORVASTATIN 40 MG TABLET Take 40 mg by mouth. CYCLOBENZAPRINE 10 MG TABLET Take 1 tablet by mouth three * ALPRAZOLAM 1 MG TABLET Take 1 tablet by mouth at bed* METHADONE 10 MG TABLET Take three tablets , three ti* OXYCODONE-ACETAMINOPHEN 5 MG-* Take 1 tablet by mouth every * Problem List As Of Date 11/25/2017 Noted Resolved Reflex sympathetic dystrophy of lower limb [G90*INVALID FOR* NEURALGIA/NEURITIS NOS [XNZ0693] INVALID FOR* MONONEURITIS LEG NOS [G57.90] INVALID FOR* DYSTHYMIC DISORDER [F34.1] More... ACUTE CHOLECYSTITIS [K81.0] INVALID FOR* Obesity [E66.9] INVALID FOR* De Quervain's tenosynovitis, left [M65.4] INVALID FOR* CMC arthritis [M19.049] INVALID FOR* Thumb pain [M79.646] INVALID FOR* Ischemic stroke of frontal lobe (HCC) [I63.9] INVALID FOR* Factor 5 Leiden mutation, heterozygous (HCC) [D*INVALID FOR* Anti-cardiolipin antibody positive [R76.8] INVALID FOR* Obesity, Class II, BMI 35-39.9 [E66.9] INVALID FOR* Follow-up and Disposition History Recorded Encounter Status:Closed by JOE CERVANTES MD on 11/26/17 PROGRESS Observed: 11/20/2017 Status: COMPLETED Source: [place] 2:31 PM [facility] REPOSITORY HNO ID: [id number] Author: Dwayne Holt Service: (none) Author Type: Physician Type: Progress Notes Filed: 11/20/2017 3:49 PM Note Text: This note was created using NoteWriter. Subjective Stephanie Moore is a 57 year old female. Review of Systems Objective BP 122/83 (BP Site: Left Arm, BP Position: Sitting, BP Cuff Size: Large Adult) Pulse 70 Resp 18 Ht 164 cm (5' 4.57) Wt 99.3 kg (219 lb) BMI 36.93 kg/m? Physical Exam Assessment and Plan PROGRESS Observed: 11/20/2017 Status: COMPLETED Source: [place] 1:33 PM [facility] REPOSITORY HNO ID: [id number] Author: Dwayne Holt Service: (none) Author Type: Physician Type: Progress Notes Filed: 11/20/2017 3:49 PM Note Text: Stephanie Moore [facility]#: [id number] Date of Service: 11/20/2017 Primary Care Provider: ANUJ HANSON MD Referring Dr Tamara Wadsworth Neurologist: Dave Maldonado MD OUTPATIENT CONSULTATION Stephanie Moore is a 57 year old right handed female seen at the request of Dr Tamara Wadsworth (Peripheral Vascular) for Endovascular/Neurosurgical consultation regarding R supraclinoid ICA stenosis. s/p R frontal stroke 09/19/17 Chief Complaint: Headaches, stroke History of Present Illness: Mid August began having headaches; also noticed frequently driving across the median. Denies visual disturbance, sensory changes, vertigo, hemiparesis or palpitations. Sought medical care at ED [facility]~ 2 weeks after initial presenting symptoms with dizziness/gait disturbance, cognitive memory/confusion issues, headache and L arm and facial weakness. Initial imaging demonstrated right frontal (cortical) infarction. Transferred to [facility]; TTE reportedly hegative for R->L shunt; Patient has a very remote history of DVT. Patient had a positive screening for JAMES. There was also evidence of an anticentromere antibody. Protein C, S and AT3 were normal. IgM anticardiolipin antibody was quantitated at 21 units per mL. There was no evidence of anticardiolipin IgG. Beta 2 glycoprotein were all negative. There was no evidence of a lupus anticoagulant. 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 There was no mutation or prothrombin gene. Placed on ASA and coumadin. MRI 10/09/17 images not available for review. f/u CTA head and neck 10/31/17 performed at [facility] suggests severe right supraclinoid carotid stenosis. Significant recovery-- resolution of L UE weakness, dizziness. Continues to have short term memory difficulty-- forgetful, confused easily Receiving PT/OT/Speech Therapy. Hypertension NA Coronary Artery Disease NA Diabetes NA Obesity NA Dyslipidemia NA Tobacco Use (Please Update Smoking History) NA Stroke NA Past Medical History: If applicable, date of last stroke, 09/19/17 PAST MEDICAL HISTORY Diagnosis Date - DVT (deep venous thrombosis) ([facility]) 2009 - Dysthymic disorder Depression (non-psychotic) - Reflex sympathetic dystrophy of the lower limb Past Surgical History: PAST SURGICAL HISTORY Procedure Laterality Date - DELIVERY ONLY X3 , low cervical - DANDC, DIAG AND/OR THERAPEUTIC Dilation AND curettage - KNEE SCOPE,DIAGNOSTIC 1996,1999 Arthroscopy, knee right X 2 - LAP CHOLECYSTECT/CHOLANGIOGRAPHY - PAST SURGICAL HISTORY OF 2004 removal spinal cord stimulator - PAST SURGICAL HISTORY OF right foot tendon release, - PAST SURGICAL HISTORY OF 07/2014 Left wrist, first dorsal compartment release - PAST SURGICAL HISTORY OF plantar fascitis - REPAIR INTERCARP/CARP-METACARP JT Left 06/29/2016 Left thumb CMC arthroplasty with ligament reconstruction and tendon interposition - REVISE MEDIAN N/CARPAL TUNNEL SURG Carpal tunnel decomp bilateral - S SPINAL CORD STIMULATOR, 1999 - TOTAL ABDOM HYSTERECTOMY Hysterectomy, IMTIAZ Allergies: Opioids - Morphine Analogues; Pentazocine; Propoxyphene; Steri Strips And Paper Tape [Other]; Talacen [Pentazocine-Acetaminophen] Medications: Current Outpatient Prescriptions: warfarin (COUMADIN) 5 mg tablet Take 1 tablet by mouth once daily. or as directed by physician aspirin (ZACK CHEWABLE ASPIRIN) 81 mg chewable tablet Take 81 mg by mouth once daily. famotidine (PEPCID AC) 20 mg tablet Take 1 tablet by mouth twice daily. atorvastatin (LIPITOR) 40 mg tablet Take 40 mg by mouth. cyclobenzaprine (FLEXERIL) 10 mg tablet Take 1 tablet by mouth three times daily as needed. ALPRAZolam (XANAX) 1 mg tablet Take 1 tablet by mouth at bedtime as needed. methadone 10 mg tablet Take three tablets , three times daily .Pain Management Dr Bassett oxyCODONE-acetaminophen (PERCOCET) 5-325 mg tablet Take 1 tablet by mouth every 8 hours as needed for Pain. Pain Management Dr Bassett No current facility-administered medications for this visit. 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: Subarachnoid hemorrhage: None Aneurysms: None Stroke: None Review of Systems Constitutional: Negative Eyes: Negative Hent: Negative Cardiovascular: Negative Respiratory: Negative GI: Negative : Negative Endocrine: Negative Musculoskeletal Positive for Back Pain (chronic R leg/knee--pain therapy, neurostimulator) Heme/Lymph Positive for Easy Bruising (on coumadin) Neurologic Positive for Memory Problems (forgetful and confusion Negative for Numbness/Tingling, Weakness, Double Vision, Trouble Swallowing and Slurred Speech Psychiatric Positive for Anxiety Patient's Review of Systems has been reviewed with the patient and updated as appropriate. PHYSICAL EXAM: Appearance: Healthy looking, casual attire, pleasant mood Neurological: Higher Integrative Functions: Oriented to person, place and time. Attention Span AND Concentration: Good Language: Speech clear and fluent. Good comprehension. 2nd Cranial Nerve: Full visual garcia 3rd, 4th AND 6th cranial nerves: Pupils equal, round, react to light, full extraocular movements without nystagmus. 5th cranial nerve: No decrease in facial sensation 7th cranial nerve: Facial muscles symmetric 8th cranial nerve: Hears bilaterally 9th cranial nerve: 10th cranial nerve: deferred 11th cranial nerve: Full strength in shoulder shrug 12th cranial nerve: Tongue protrusion full and midline Sensation: No decrease in sensation in upper or lower limbs Please see NI Health Status Measures for NIH, Prisca and Roosevelt MEDICAL DECISION MAKING: DATA REVIEW: Review of old medical records: Limited from [facility] and [facility] Admissions Review of reports of lab, radiology, and / or other diagnostic test(s): Y Personal review of image: Y, limited primarily to CTA I reviewed the history obtained and documented by the nurse. I examined the patient and evaluated all available films and pertinent documents. DIAGNOSIS: Right Frontal stroke in a patient with staring spells, headache, ? coagulopathy and supraclinoid CHARLINE stenosis TREATMENT OPTIONS AND RISKS: I have discussed the management options with Dr. Macdonald. While the patient does have a supraclinoid CHARLINE stenosis, the frontal defect appears embolic. And, although she has a remote hx of DVT, TTE x 2 was negative for PFO. Headache and staring spells also unexplained but (at least temporally) related to her CVA RECOMMENDATIONS: Diagnostic tests to be ordered: Consult Elmira Babcock and obtained long (2hr) EEG Have consented her for (will need to be scheduled) an LP and cerebral Angiogram NB: Although she tolerated MRI safely at outside hospital post (remote) removal spinal cord stimulator, [employer] strongly discourages scanning of patients with leads only (which she still has) Medications: continue current medications; DC Coumadin 3 days prior to LP/ Angiogram Instructions: Continue present activity. Need for her to obtain MRI Dwayne Holt M.D. Visitor Services Coordinator, Diagnostic Radiology Fellowship Director, Endovascular Neurosurgery / [address] [place] [address] Office: CNOV Observed: 11/20/2017 Status: COMPLETED Source: [place] 12:40 PM [facility] REPOSITORY Office Visit (NSEN) TERESASTEPHANIE Alan ([id number]) 1960 F Date Time Provider Department 11/20/17 12:40 PM DWAYNE HOLT [facility] During your visit today, we recorded the following information about you: Pulse Respiration Blood pressure Weight 70/minute 18/minute 122/83 99.3 kg Height 1.64 m Dwayne Holt MD 11/20/2017 3:49 PM Signed Stephanie Moore [facility]#: [id number] Date of Service: 11/20/2017 Primary Care Provider: ANUJ HANSON MD Referring Dr Tamara Wadsworth Neurologist: Dave Maldonado MD OUTPATIENT CONSULTATION Stephanie Moore is a 57 year old right handed female seen at the request of Dr Tamara Wadsworth (Peripheral Vascular) for Endovascular/Neurosurgical consultation regarding R supraclinoid ICA stenosis. s/p R frontal stroke 09/19/17 Chief Complaint: Headaches, stroke History of Present Illness: Mid August began having headaches; also noticed frequently driving across the median. Denies visual disturbance, sensory changes, vertigo, hemiparesis or palpitations. Sought medical care at [facility]~ 2 weeks after initial presenting symptoms with dizziness/gait disturbance, cognitive memory/confusion issues, headache and L arm and facial weakness. Initial imaging demonstrated right frontal (cortical) infarction. Transferred to [facility]; TTE reportedly hegative for R->L shunt; Patient has a very remote history of DVT. Patient had a positive screening for JAMES. There was also evidence of an anticentromere antibody. Protein C, S and AT3 were normal. IgM anticardiolipin antibody was quantitated at 21 units per mL. There was no evidence of anticardiolipin IgG. Beta 2 glycoprotein were all negative. There was no evidence of a lupus anticoagulant. 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 There was no mutation or prothrombin gene. Placed on ASA and coumadin. MRI 10/09/17 images not available for review. f/u CTA head and neck 10/31/17 performed at [facility] suggests severe right supraclinoid carotid stenosis. Significant recovery-- resolution of L UE weakness, dizziness. Continues to have short term memory difficulty-- forgetful, confused easily Receiving PT/OT/Speech Therapy. Hypertension NA Coronary Artery Disease NA Diabetes NA Obesity NA Dyslipidemia NA Tobacco Use (Please Update Smoking History) NA Stroke NA Past Medical History: If applicable, date of last stroke, 09/19/17 PAST MEDICAL HISTORY Diagnosis Date - DVT (deep venous thrombosis) (HCC) 2009 - Dysthymic disorder Depression (non-psychotic) - Reflex sympathetic dystrophy of the lower limb Past Surgical History: PAST SURGICAL HISTORY Procedure Laterality Date - DELIVERY ONLY X3 , low cervical - DANDC, DIAG AND/OR THERAPEUTIC Dilation AND curettage - KNEE SCOPE,DIAGNOSTIC 1996,1999 Arthroscopy, knee right X 2 - LAP CHOLECYSTECT/CHOLANGIOGRAPHY - PAST SURGICAL HISTORY OF 2004 removal spinal cord stimulator - PAST SURGICAL HISTORY OF right foot tendon release, - PAST SURGICAL HISTORY OF 07/2014 Left wrist, first dorsal compartment release - PAST SURGICAL HISTORY OF plantar fascitis - REPAIR INTERCARP/CARP-METACARP JT Left 06/29/2016 Left thumb CMC arthroplasty with ligament reconstruction and tendon interposition - REVISE MEDIAN N/CARPAL TUNNEL SURG Carpal tunnel decomp bilateral - S SPINAL CORD STIMULATOR, 1999 - TOTAL ABDOM HYSTERECTOMY Hysterectomy, IMTIAZ Allergies: Opioids - Morphine Analogues; Pentazocine; Propoxyphene; Steri Strips And Paper Tape [Other]; Talacen [Pentazocine-Acetaminophen] Medications: Current Outpatient Prescriptions: warfarin (COUMADIN) 5 mg tablet Take 1 tablet by mouth once daily. or as directed by physician aspirin (ZACK CHEWABLE ASPIRIN) 81 mg chewable tablet Take 81 mg by mouth once daily. famotidine (PEPCID AC) 20 mg tablet Take 1 tablet by mouth twice daily. atorvastatin (LIPITOR) 40 mg tablet Take 40 mg by mouth. cyclobenzaprine (FLEXERIL) 10 mg tablet Take 1 tablet by mouth three times daily as needed. ALPRAZolam (XANAX) 1 mg tablet Take 1 tablet by mouth at bedtime as needed. methadone 10 mg tablet Take three tablets , three times daily .Pain Management Dr Bassett oxyCODONE-acetaminophen (PERCOCET) 5-325 mg tablet Take 1 tablet by mouth every 8 hours as needed for Pain. Pain Management Dr Bassett No current facility-administered medications for this visit. 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: Subarachnoid hemorrhage: None Aneurysms: None Stroke: None Review of Systems Constitutional: Negative Eyes: Negative Hent: Negative Cardiovascular: Negative Respiratory: Negative GI: Negative : Negative Endocrine: Negative Musculoskeletal Positive for Back Pain (chronic R leg/knee--pain therapy, neurostimulator) Heme/Lymph Positive for Easy Bruising (on coumadin) Neurologic Positive for Memory Problems (forgetful and confusion Negative for Numbness/Tingling, Weakness, Double Vision, Trouble Swallowing and Slurred Speech Psychiatric Positive for Anxiety Patient's Review of Systems has been reviewed with the patient and updated as appropriate. PHYSICAL EXAM: Appearance: Healthy looking, casual attire, pleasant mood Neurological: Higher Integrative Functions: Oriented to person, place and time. Attention Span AND Concentration: Good Language: Speech clear and fluent. Good comprehension. 2nd Cranial Nerve: Full visual garcia 3rd, 4th AND 6th cranial nerves: Pupils equal, round, react to light, full extraocular movements without nystagmus. 5th cranial nerve: No decrease in facial sensation 7th cranial nerve: Facial muscles symmetric 8th cranial nerve: Hears bilaterally 9th cranial nerve: 10th cranial nerve: deferred 11th cranial nerve: Full strength in shoulder shrug 12th cranial nerve: Tongue protrusion full and midline Sensation: No decrease in sensation in upper or lower limbs Please see NI Health Status Measures for NIH, Prisca and Erik MEDICAL DECISION MAKING: DATA REVIEW: Review of old medical records: Limited from [facility] Admissions Review of reports of lab, radiology, and / or other diagnostic test(s): Y Personal review of image: Y, limited primarily to CTA I reviewed the history obtained and documented by the nurse. I examined the patient and evaluated all available films and pertinent documents. DIAGNOSIS: Right Frontal stroke in a patient with staring spells, headache, ? coagulopathy and supraclinoid CHARLINE stenosis TREATMENT OPTIONS AND RISKS: I have discussed the management options with Dr. Macdonald. While the patient does have a supraclinoid CHARLINE stenosis, the frontal defect appears embolic. And, although she has a remote hx of DVT, TTE x 2 was negative for PFO. Headache and staring spells also unexplained but (at least temporally) related to her CVA RECOMMENDATIONS: Diagnostic tests to be ordered: Consult Dr. Macdonald, Elmira Krishnamurthy and obtained long (2hr) EEG Have consented her for (will need to be scheduled) an LP and cerebral Angiogram NB: Although she tolerated MRI safely at outside hospital post (remote) removal spinal cord stimulator, [employer] strongly discourages scanning of patients with leads only (which she still has) Medications: continue current medications; DC Coumadin 3 days prior to LP/ Angiogram Instructions: Continue present activity. Need for her to obtain MRI Dwayne Holt M.D. Visitor Services Coordinator, Diagnostic Radiology Fellowship Director, Endovascular Neurosurgery / [facility] [address] [place], [place] [id number] Office: Dwayne Holt MD 11/20/2017 3:49 PM Signed This note was created using NoteWriter. Subjective Stephanie Moore is a 57 year old female. Review of Systems Objective BP 122/83 (BP Site: Left Arm, BP Position: Sitting, BP Cuff Size: Large Adult) Pulse 70 Resp 18 Ht 164 cm (5' 4.57) Wt 99.3 kg (219 lb) BMI 36.93 kg/m? Physical Exam Assessment and Plan Jaqueline Doll 11/20/2017 3:36 PM Signed Obtain and send CD copy of MRI performed at [facility] on 10/09/[address] Holt's office. Pre angio and LP instructions reviewed including: -- pre-procedure labs to be drawn -- fasting post MN, clear liquids until 2 hours before -- take usual meds including ASA except HOLD coumadin x 3 days -- carrier driver present for discharge -- at least 2-3 hrs bed rest recovery/observation Referring Provider: TAMARA WADSWORTH [[id number]] Allergies As of Date: 11/20/2017 Noted Allergy Reaction OPIOIDS - MORPHINE ANALOGUES 08/29/2000 Comments: vicodin PENTAZOCINE 08/29/2000 Comments: talwin PROPOXYPHENE 08/29/2000 Comments: darvacet steri strips and paper tape [Othe*12/30/2006 TALACEN (PENTAZOCINE-ACETAMINOPHE*08/20/2005 1 - Mental Status Change Date Reviewed: 11/20/2017 Reviewed by: Mercy Gillette Ma - Fully Assessed Reason for Visit: New Patient [172] Primary Visit Diagnosis: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] Other Visit Diagnoses:Cerebrovascular accident (CVA) due to stenosis of right carotid artery (HCC) [I63.231] Seizures (HCC) [R56.9] Obesity, Class II, BMI 35-39.9 [E66.9] Order(s):CONSULT TO NEUROLOGY [9019] Order #: [id number]: 1 CONSULT TO RHEUM/IMMUN DISEASE [9039] Order #: [id number]: 1 EEG LONG [4836652] Order #: [id number] IR LP FOR DRAINAGE (PRESSURE) [7653761] Order #: [id number] IR CEREBRAL ARCH AND THREE VESSEL [1525888] Order #: [id number] Prescriptions as of 11/20/2017 Sig: WARFARIN 5 MG TABLET Take 1 tablet by mouth once d* ASPIRIN 81 MG CHEWABLE TABLET Take 81 mg by mouth once jose eduardo* FAMOTIDINE 20 MG TABLET Take 1 tablet by mouth twice * ATORVASTATIN 40 MG TABLET Take 40 mg by mouth. CYCLOBENZAPRINE 10 MG TABLET Take 1 tablet by mouth three * ALPRAZOLAM 1 MG TABLET Take 1 tablet by mouth at bed* METHADONE 10 MG TABLET Take three tablets , three ti* OXYCODONE-ACETAMINOPHEN 5 MG-* Take 1 tablet by mouth every * Problem List As Of Date 11/20/2017 Noted Resolved Reflex sympathetic dystrophy of lower limb [G90*INVALID FOR* NEURALGIA/NEURITIS NOS [ZAJ8213] INVALID FOR* MONONEURITIS LEG NOS [G57.90] INVALID FOR* DYSTHYMIC DISORDER [F34.1] More... ACUTE CHOLECYSTITIS [K81.0] INVALID FOR* Obesity [E66.9] INVALID FOR* De Quervain's tenosynovitis, left [M65.4] INVALID FOR* CMC arthritis [M19.049] INVALID FOR* Thumb pain [M79.646] INVALID FOR* Ischemic stroke of frontal lobe (HCC) [I63.9] INVALID FOR* Factor 5 Leiden mutation, heterozygous (HCC) [D*INVALID FOR* Anti-cardiolipin antibody positive [R76.8] INVALID FOR* Obesity, Class II, BMI 35-39.9 [E66.9] INVALID FOR* Other instructions from your clinician: Obtain and send CD copy of MRI performed at [facility] on 10/09/[address] Holt's office. Pre angio and LP instructions reviewed including: -- pre-procedure labs to be drawn -- fasting post MN, clear liquids until 2 hours before -- take usual meds including ASA except HOLD coumadin x 3 days -- carrier driver present for discharge -- at least 2-3 hrs bed rest recovery/observation Encounter Status:Closed by DWAYNE HOLT MD on 11/20/17 RE-EVALUATION - PT (1) Observed: 11/20/2017 Status: F Source: [place] 12:07 PM [facility] REPOSITORY [facility] Physical [facility] [address] [place], [place] [address] Fax REEVALUATION / MEDICARE RECERTIFICATION PHYSICAL THERAPY MR#: [id number] Acct: [id number] Name: SOLISSTEPHANIE Steen Rep #: [id number] : 1960 57 From: Alfredo Shirley DPT Referring Dr.: LESLIE Luke Status: REG RCR Insurance: [employer]ELF PAY INSURANCE LESLIE Villanueva, It has been my pleasure to treat STEPHANIE MOORE over the last 11 visits for CVA. Please see the progress note below for an update on the physical therapy plan of care! Subjective: Pt reported feeling well at time of treatment. no pain at time of treatment . Pt. reports being 95 % better overall. Pt. does report increased stability in stance and is doing all ADls without issues at home. She has not yet returned to work, but plans to in [employer]. Objective/Function: pt completed full treatment with no adverse effects. LE: Hip flexion- 4+/5; L ankle inversion 4/5, rest is 5/5 throughout. FGA 28/30- pt. has mild difficulty with walking with eyes closes and with narrow DANY. Pt. is I with with HEP. Pt. is ambulating without issues without AD without signs of imbalance or issues. Pt. was able to complete all work simulation activies without issues. Pt. reprots no pain increase in pain with PT ro work activities. No LOB Noted. Plan Plan: Pt. to trial HEP on her own for the next 2-3 weeks to determin if she can self progress/maintain. Pt. to call PT if unable to or if she has questions. She still have OT and ST at this point in time. Goals Goal 1:: Pt. to be I with HEP. Goal Time Frame: 4-6 Weeks Goal Progress: Goal Met Goal 2:: Pt. to have increased FGA to 25/30 indicating reduced risk for falls and improved stability. Goal Time Frame: 4-6 Weeks Goal Progress: Goal Met Goal 3:: Pt. to ambulate with improved pattern without LOB for unlimited distances. Goal Time Frame: 4-6 Weeks Goal Progress: Goal Met Goal 4:: Pt. to get back to work without limitations. Goal Time Frame: 4-6 Weeks Goal Progress: Progressing Anticipated Interventions Patient/Client Instruction: Educate patient on: Condition, Plan of Care, Risk Factors, Benefits of Fitness Program For the Purpose of:: To reduce risk of recurrence, To improve safety, To improve health and function, To foster healthy habits, To improve decision making, To facilitate caregiver knowledge, To prevent re-injury, To improve ability to perform tasks related to life management, To improve tolerance to ADL's Therapeutic Exercise to Include: Strength training, Power training, Endurance training, Balance training, Coordination, Gait and locomotor training, Passive ROM, Active ROM For the Purpose of:: To improve nutrient delivery to tissue, To increase oxygenation perfusion, To improve muscle performance and motor function, To improve health of tissue, To decrease soft tissue restriction, To increase flexibility/ROM, To improve balance, To improve safety with gait, To assume or resume ADL's Please do not hesitate to contact me at [phone] by phone or if you have questions or concerns regarding this new plan of care! Sincerely, Alfredo Shirley <Electronically signed by Alfredo Shirley DPT> 11/20/17 1207 CC: LESLIE Luke; Anuj Hanson MD CLS Signed For Medicare only, by signing this I certify the plan of care. Physicians Signature Date INITAL EVALUATION (1) Observed: 11/11/2017 Status: F Source: [place] - PT 1:54 PM [facility] REPOSITORY [facility] [address] [place] [address] Fax REHABILITATION SERVICES INITIAL EVALUATION MR#: [id number] Acct: [id number] Name: STEPHANIE MOORE Rep #: [id number] : 1960 57 From: Alfredo Shirley DPT Referring Dr.: LESLIE Luke Status: REG R Insurance: [facility] SELF PAY INSURANCE Patient's Visit Information STEPHANIE MOORE is a 57 year old F referred to Physical Therapy by LESLIE Villanueva with a diagnosis of CVA. Date of Evaluation: 10/11/17 Physical Therapist: Alfredo Shirley - Visit Plan Frequency: 2x /Week Duration: 4-6 Weeks Plan: Continue to progress stability, begin next session with walking on uneven surfaces. - Subjective Subjective: Pt is here today for her initial evaluation with diagnosis of CVA with L sided weakness. Pt. reports initial issues were a few weeks ago. She was becoming more and more dizziness, she was also having difficulty with driving and standing. She then started having difficulty raising her L arm. Pt. was in the hospital for 1 weeks and symptoms were resolving. Pt. continues to have increased DOWELL at times, but no changes in vision. She reports continued difficulty with walking, she believes she has a L sided neglect. Pt. is to have another CAT scan in a few weeks. She denies N/T and no issues with LLE weakness. Pt. is hopeful to get back to all work and recreational activities without limitations. - Pain R knee Pain Intensity (Out of 10): 0 - Objective POSTURE: Pt. has wide DANY in stance. Pt. appears to have a slight L lateral lean in stance. PALPATION: no pain with all palpation throughout BLEs. Pt. has no signs of edema. NEURO: Pt. has normal DTR of BLEs. no changes in sensation to light and sharp touch. ROM: Pt. has normal ROM of BLEs, tight HS bilaterally. Pt. has normal lumbar ROM, mild reduction in lumbar extension. Pt. has normal hip ROM bilaterally. MMT: RLE- 5/5 throughout, except 4+/5 hip flexion and abduction. LLE- ankle 5/5 throughout; knee- ext 4+/5, flexion 4+/5; hip- flexon 4+/5, abd 4/5, ext 4+/5. Core strength- poor+. GAIT: Pt. ambulates with out AD without LOB, but does have occassional deviation from path to L side. Pt. does not appear to have a true left sided neglect. STAIRS: Pt. is able to negotiate with reciprocal pattern, but has L sided functional weakness. - Balance Scores Functional Gait Assessment Score: 20 % Disability: 33.3400 - Goals Goal 1:: Pt. to be I with HEP. Goal Time Frame: 4-6 Weeks Goal 2:: Pt. to have increased FGA to 25/30 indicating reduced risk for falls and improved stability. Goal Time Frame: 4-6 Weeks Goal 3:: Pt. to ambulate with improved pattern without LOB for unlimited distances. Goal Time Frame: 4-6 Weeks Goal 4:: Pt. to get back to work without limitations. Goal Time Frame: 4-6 Weeks - Rehabilitation Potential Physical Therapy Diagnosis: Pt. has signs and symptoms consistent with balance and gait disturbances status post CVA. Pt. has some L sided weakness, but minimal. Her greatest difficulty at this point in time is her balance and stability. Pt. would benefit from PT to increase stability with all functional mobility in order to get back to work and recreational activies without limitations. Rehabilitation Potential: Excellent - Anticipated Interventions Patient/Client Instruction: Educate patient on: Condition, Plan of Care, Risk Factors, Benefits of Fitness Program For the Purpose of:: To reduce risk of recurrence, To improve safety, To improve health and function, To foster healthy habits, To improve decision making, To facilitate caregiver knowledge, To prevent re-injury, To improve ability to perform tasks related to life management, To improve tolerance to ADL's Therapeutic Exercise to Include: Strength training, Power training, Endurance training, Balance training, Coordination, Gait and locomotor training, Passive ROM, Active ROM For the Purpose of:: To improve nutrient delivery to tissue, To increase oxygenation perfusion, To improve muscle performance and motor function, To improve health of tissue, To decrease soft tissue restriction, To increase flexibility/ROM, To improve balance, To improve safety with gait, To assume or resume ADL's Thank you for the opportunity to evaluate your patient. For Medicare and Medicare HMO plans, please review the plan of care and approve it. It will need to be FAXED BACK to us at [phone] for Medicare purposes. Please let me know if there are questions or concerns regarding this plan of care. Physician Signature: Date: <Electronically signed by Alfredo Shirley DPT> 11/11/17 1354 CC: LESLIE Luke; Anuj Hanson MD CLS Signed For Medicare only, by signing this I certify the plan of care. Physicians Signature Date PROTIME Collected: 11/11/2017 Status: F Source: [place] 11:40 AM [facility] REPOSITORY TYPE CODE TESTS RESULT OUT OF RANGE REFERENCE UNITS LAB PSEC 9.7-13.0 sec High PT Sec 25.1 LAB INR 0.9-1.3 High PT INR 2.5 Result Comment: Vitamin K Antagonist (VKA) Therapeutic Range: INR 2 to 3 (Target INR of 2.5) Note: For patients treated with VKA drugs, such as warfarin, the [employer] 2012 Guideline recommends a therapeutic INR range of 2 to 3 (target INR of 2.5). This recommendation includes high-risk patients with antiphospholipid syndrome with previous arterial or venous thromboembolism, current-generation mechanical or bioprosthetic aortic heart valve replacement. Note: Patients with mechanical aortic valve replacement and additional risk factors for thromboembolic events (atrial fibrillation, previous thromboembolism, LV dysfunction, hypercoagulable conditions) or an older generation mechanical AVR (i.e., ball in-Cage) or any mechanical MVR should have a INR therapeutic range of 2.5 to 3.5 (target INR of 3). Terrance GH, et al. Chest 2012, 141:7S-47S Katya RA, et al. [facility] 2017, 70: 252-289 Performed By: #### PT #### [facility] [address] [address] PROTIME Collected: 11/01/2017 Status: F Source: [place] 10:00 AM [facility] REPOSITORY TYPE CODE TESTS RESULT OUT OF RANGE REFERENCE UNITS LAB PSEC 9.7-13.0 sec High PT Sec 16.8 LAB INR 0.9-1.3 High PT INR 1.6 Result Comment: Vitamin K Antagonist (VKA) Therapeutic Range: INR 2 to 3 (Target INR of 2.5) Note: For patients treated with VKA drugs, such as warfarin, the [employer] 2012 Guideline recommends a therapeutic INR range of 2 to 3 (target INR of 2.5). This recommendation includes high-risk patients with antiphospholipid syndrome with previous arterial or venous thromboembolism, current-generation mechanical or bioprosthetic aortic heart valve replacement. Note: Patients with mechanical aortic valve replacement and additional risk factors for thromboembolic events (atrial fibrillation, previous thromboembolism, LV dysfunction, hypercoagulable conditions) or an older generation mechanical AVR (i.e., ball in-Cage) or any mechanical MVR should have a INR therapeutic range of 2.5 to 3.5 (target INR of 3). Terracne GH, et al. Chest 2012, 141:[id number] Katya HERNANDEZ, et al. [facility] 2017, 70: [phone] Performed By: #### PT #### [facility] [address] [place], [place] [address] PROGRESS Observed: 10/31/2017 Status: COMPLETED Source: [place] 4:11 PM [facility] REPOSITORY HNO ID: [id number] Author: Romy Calero Ct Service: (none) Author Type: (none) Type: Progress Notes Filed: 10/31/2017 4:12 PM Note Text: Radiology Service Progress Note PATIENT NAME: Stephanie Moore DATE OF SERVICE: October 31, 2017 TIME: 4:11 PM PATIENT IDENTITY VERIFICATION COMPLETED USING TWO (2) METHODS: Patient confirmed name verbally and Date of . PATIENT GENDER DATA: Female. status: : No status: NO. PATIENT RELEVANT IMPLANT DATA REVIEWED: Not Applicable CONTRAST INDUCED NEPHROPATHY RISK FACTORS: Not applicable CREATININE: Creatinine Date Value Ref Range Status 10/10/2017 0.70 0.58 - 0.96 mg/dL Final 06/22/2016 0.75 0.58 - 0.96 mg/dL Final 08/06/2014 0.77 0.70 - 1.40 mg/dL Final eGFR-All Other Races Date Value Ref Range Status 10/10/2017 >60 . Final Comment: eGFR (Estimated GFR) Units of measure: mL/min/1.73 meters squared eGFR is derived from the reexpressed MDRD Study equation using the following parameters: serum creatinine, age, gender and race. The creatinine assay has been calibrated to be traceable to IDMS. An eGFR <60 mL/min/1.73m2 for >3 months is consistent with chronic kidney disease. Refer to KDOQI guidelines for clinical interpretation. In patients with unstable renal function, e.g. those with acute kidney injury, the eGFR may not accurately reflect actual GFR. eGFR- Date Value Ref Range Status 10/10/2017 >60 Final P.O.C.T. RESULTS: POC done: Yes, See Lab Tab October 31, 2017 RADIOLOGIST NOTIFIED?: No ALLERGIES: Reviewed and unchanged CONTRAST ALLERGY: NO. PERIPHERAL IV ACCESS: Ambulatory: IV type: A peripheral IV was started in the Left antecubital site with a Angio cath: 18 gauge., Site assessment: Clean,Dry and Intact, Site disposition Discontinued RADIOLOGY DEPARTMENT: CT; Exam(s) Completed: Brain , CTA Brain and CTA Neck SIGNED BY: Romy Calero Ct October 31, 2017 4:11 PM CTA NECK W IVCON Observed: 10/31/2017 Status: F Source: [place] 3:35 PM [facility] REPOSITORY * * *Final Report* * * DATE OF EXAM: Oct 31 2017 3:35PM [facility] 0024 - CTA NECK W IVCON / PROCEDURE REASON: Cerebral infarction due to unspecified occlusion or stenosis of right carotid ar * * * * Physician Interpretation * * * * EXAMINATION: CTA HEAD WO/W IVCON, CTA NECK W IVCON CLINICAL HISTORY: TECHNIQUE: Routine CT of the brain without IV contrast. Next, spiral high resolution axial images were obtained through the head, neck and superior mediastinum following bolus administration of intravenous contrast for CT angiography. The data was subsequently post-processed utilizing 3D multi-planar reconstructions, 3D maximum intensity projections, and a tissue segmentation algorithm at a separate workstation under physician supervision. MQ: CTABNPlus_3 Contrast: 80 mL Omnipaque 350 IV Dose-Length Product (DLP): 1531 mGy*cm. CT Dose Reduction Employed: No dose reduction techniques were required COMPARISON: None. RESULT: BRAIN: Acute change: No evidence of an acute infarct or other acute parenchymal process. ASPECT Score = 10 Hemorrhage: No evidence of acute intracranial hemorrhage. ECASS hemorrhagic transformation score = Not Applicable Mass Lesion / Mass Effect: There is no evidence of an intracranial mass or extraaxial fluid collection. No significant mass effect. Chronic change: Remote right frontal infarct at the border of the right KARLEY and MCA territory, possibly watershed ischemia. Parenchyma: There is no significant volume loss. The brain parenchyma is otherwise within normal limits for age. Ventricles: The ventricles are within normal limits of size and configuration for age. Other: The visualized paranasal sinuses are grossly clear. The skull and visualized extracranial soft tissues are grossly normal. NECK: Soft tissues: The soft tissue planes are maintained throughout. No evidence of a soft tissue mass in the neck or superior mediastinum. No significant lymphadenopathy is seen. Spine: Alignment is normal. Moderate degenerative changes are present. Lung apices: The visualized lung apices are clear. CT ARTERIOGRAM: Extracranial Circulation: Aortic Arch: There is a normal branching pattern from the aortic arch.. There is no significant stenosis in the proximal brachiocephalic vessels. Carotid Stenosis: Right Common: No significant stenosis. Right Internal Carotid Plaque: Mild plaque without significant stenosis. Right Internal Carotid Stenosis (% by NASCET Criteria): 0% Left Common: No significant stenosis. Left Internal Carotid Plaque: Mild plaque formation without significant stenosis. Left Internal Carotid Stenosis (% by NASCET Criteria): 0% Cervical Vertebral Arteries: Patency: Bilateral Dominance: Right Intracranial Circulation: Spot Sign Presence: Not Applicable Spot Sign Number: Not Applicable Anterior Circulation: Severe stenosis right ICA terminus. Reconstitution of the KARLEY and MCA branches with decreased caliber of right KARLEY branches compared to the left. Left MCA and ICA are patent. Vertebrobasilar Circulation: Intracranial vertebral arteries, the basilar artery, and the salesperson pianos and organs are patent and within normal limits. IMPRESSION: Right anterior hemispheric remote infarct, possibly watershed distribution on the border between right MCA and KARLEY territories. Severe stenosis of the right ICA terminus. Decreased caliber right KARLEY branches compared to the left. 0% bilateral ICA narrowing by NASCET criteria 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 Engine Mechanic: SAM Transcribe Date/Time: Oct 31 2017 3:39P Dictated by : PATY SANTOS MD This examination was interpreted and the report reviewed and electronically signed by: PATY SANTOS MD on Oct 31 2017 3:43PM EST [id number] CTA HEAD WO/W IVCON Observed: 10/31/2017 Status: F Source: [place] 3:35 PM [facility] REPOSITORY * * *Final Report* * * DATE OF EXAM: Oct 31 2017 3:35PM [facility] 0023 - CTA HEAD WO/W IVCON / PROCEDURE REASON: Cerebral infarction due to unspecified occlusion or stenosis of right vertebral * * * * Physician Interpretation * * * * EXAMINATION: CTA HEAD WO/W IVCON, CTA NECK W IVCON CLINICAL HISTORY: TECHNIQUE: Routine CT of the brain without IV contrast. Next, spiral high resolution axial images were obtained through the head, neck and superior mediastinum following bolus administration of intravenous contrast for CT angiography. The data was subsequently post-processed utilizing 3D multi-planar reconstructions, 3D maximum intensity projections, and a tissue segmentation algorithm at a separate workstation under physician supervision. MQ: CTABNPlus_3 Contrast: 80 mL Omnipaque 350 IV Dose-Length Product (DLP): 1531 mGy*cm. CT Dose Reduction Employed: No dose reduction techniques were required COMPARISON: None. RESULT: BRAIN: Acute change: No evidence of an acute infarct or other acute parenchymal process. ASPECT Score = 10 Hemorrhage: No evidence of acute intracranial hemorrhage. ECASS hemorrhagic transformation score = Not Applicable Mass Lesion / Mass Effect: There is no evidence of an intracranial mass or extraaxial fluid collection. No significant mass effect. Chronic change: Remote right frontal infarct at the border of the right KARLEY and MCA territory, possibly watershed ischemia. Parenchyma: There is no significant volume loss. The brain parenchyma is otherwise within normal limits for age. Ventricles: The ventricles are within normal limits of size and configuration for age. Other: The visualized paranasal sinuses are grossly clear. The skull and visualized extracranial soft tissues are grossly normal. NECK: Soft tissues: The soft tissue planes are maintained throughout. No evidence of a soft tissue mass in the neck or superior mediastinum. No significant lymphadenopathy is seen. Spine: Alignment is normal. Moderate degenerative changes are present. Lung apices: The visualized lung apices are clear. CT ARTERIOGRAM: Extracranial Circulation: Aortic Arch: There is a normal branching pattern from the aortic arch.. There is no significant stenosis in the proximal brachiocephalic vessels. Carotid Stenosis: Right Common: No significant stenosis. Right Internal Carotid Plaque: Mild plaque without significant stenosis. Right Internal Carotid Stenosis (% by NASCET Criteria): 0% Left Common: No significant stenosis. Left Internal Carotid Plaque: Mild plaque formation without significant stenosis. Left Internal Carotid Stenosis (% by NASCET Criteria): 0% Cervical Vertebral Arteries: Patency: Bilateral Dominance: Right Intracranial Circulation: Spot Sign Presence: Not Applicable Spot Sign Number: Not Applicable Anterior Circulation: Severe stenosis right ICA terminus. Reconstitution of the KARLEY and MCA branches with decreased caliber of right KARLEY branches compared to the left. Left MCA and ICA are patent. Vertebrobasilar Circulation: Intracranial vertebral arteries, the basilar artery, and the salesperson pianos and organs are patent and within normal limits. IMPRESSION: Right anterior hemispheric remote infarct, possibly watershed distribution on the border between right MCA and KARLEY territories. Severe stenosis of the right ICA terminus. Decreased caliber right KARLEY branches compared to the left. 0% bilateral ICA narrowing by NASCET criteria 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 Engine Mechanic: SAM Transcribe Date/Time: Oct 31 2017 3:39P Dictated by : PATY SANTOS MD This examination was interpreted and the report reviewed and electronically signed by: PATY SANTOS MD on Oct 31 2017 3:43PM EST [id number] PROGRESS Observed: 10/31/2017 Status: COMPLETED Source: [place] 8:02 AM [facility] REPOSITORY HNO ID: [id number] Author: Berhane (Business Resiliency Manager) Marly Service: (none) Author Type: Nurse Practitioner Type: Progress Notes Filed: 10/31/2017 10:11 AM Note Text: CC: Patient presents with: Recheck: Follow up HPI Stephanie Dayanna Moore is a 57 year old female who presents today with for follow up of possible carotid artery stenosis per [facility] imaging studies following CVA August 2017. Also, noted Possible small paten foramen ovale for which patient has follow up with cardiology scheduled November 25, 2017 from her 10/04 appointment. Patient reports doing fairly well at home. Currently active with PT/OT and Speech therapy. She reports having continued issues with equilibrium, visual changes with color for which she has an appointment scheduled today and complaints of intermittent headaches since her CVA. She also notes having issues remembering the day of the week now that she is not working and has mixed up her days and medications. She does note GERD symptoms have improved since starting Pepcid. Patient has since followed up with for evaluation of Factor 5 Leiden mutation where he noted concerns for carotid stenosis per imaging done at [facility] as below: Carotid duplex ultrasound 09/19/2017: No significant atherosclerotic plaque or stenosis in the internal carotid arteries bilaterally. Flow within the vertebral arteries was antegrade bilaterally. CTA head: FINDINGS: Normal bilateral petrous carotid arteries. A significant focal stenosis of the supraclinoid segment of the right internal carotid artery is noted with residual lumen diameter of 1 mm. Normal left cavernous carotid artery with a normal supraclinoid bifurcation. ? Normal right A1 segments of the anterior cerebral artery. Normal left A1 segments of the anterior cerebral artery. Normal intact anterior communicating artery (ACOM). Normal bilateral A2 segments of the anterior cerebral arteries. ? Normal right M1 and M2 segments of the middle cerebral arteries, with a normal M1 bifurcation. Normal left M1 and M2 segments of the middle cerebral arteries, with a normal M1 bifurcation. ? Normal right posterior communicating artery (PCOM). Normal left posterior communicating artery (PCOM). ? Normal bilateral vertebral arteries. Normal basilar artery with a normal basilar bifurcation. The visualized bilateral superior cerebellar (SCA) arteries are normal. ? Normal bilateral P1, P2 and visualized P3 segments of the posterior cerebral arteries. ? There is no demonstrated aneurysm of the [place]. ? IMPRESSION: A significant focal stenosis of the supraclinoid segment of the right internal carotid artery is noted with residual lumen diameter of 1 mm. No other significant intracranial arterial stenoses are detected. No arterial occlusions are seen. ? CTA neck: AORTIC ARCH: Normal visualized aortic arch. Normal origins of the brachiocephalic, left common carotid, and left subclavian arteries. ? RIGHT CAROTID ARTERIES: Normal right common carotid artery (CCA). Normal right common carotid bulb. ? Normal origin of the right internal carotid (ICA) artery without a hemodynamically significant stenosis. Normal visualized cervical portion of the right internal carotid artery. ? Normal origin of the right external carotid artery (ECA). ? LEFT CAROTID ARTERIES: Normal left common carotid artery (CCA). Normal left common carotid bulb. ? Normal origin of the left internal carotid (ICA) artery without a hemodynamically significant stenosis. Normal visualized cervical portion of the left internal carotid artery. ? Normal origin of the left external carotid artery (ECA). ? VERTEBRAL ARTERIES: Normal bilateral vertebral arteries. ? Pulmonary emphysema. IMPRESSION: Normal bilateral cervical carotid and vertebral arteries REVIEW OF SYSTEMS General: no fevers, no chills, no night sweats, no recurrent infections, no change in appetite, no change in energy and no significant changes in weight HEENT: no changes in hearing, no nose bleeds, no sinus or nasal problems, See HPI Neck: no lumps, no pain and no swelling Respiratory: no cough, no wheezing, no shortness of breath, no hemoptysis Cardiovascular: no chest pain, no chest pressure, no palpitations and no swelling Neurologic: no syncope, no seizures, no dizziness, no numbness or tingling of feet, no muscle weakness, no tremor, See HPI PAST MEDICAL HISTORY Diagnosis Date - DVT (deep venous thrombosis) ([facility]) 2009 - Dysthymic disorder Depression (non-psychotic) - Reflex sympathetic dystrophy of the lower limb PAST SURGICAL HISTORY Procedure Laterality Date - DELIVERY ONLY X3 , low cervical - DANDC, DIAG AND/OR THERAPEUTIC Dilation AND curettage - KNEE SCOPE,DIAGNOSTIC 1996,1999 Arthroscopy, knee right X 2 - LAP CHOLECYSTECT/CHOLANGIOGRAPHY - PAST SURGICAL HISTORY OF 2004 removal spinal cord stimulator - PAST SURGICAL HISTORY OF right foot tendon release, - PAST SURGICAL HISTORY OF 07/2014 Left wrist, first dorsal compartment release - PAST SURGICAL HISTORY OF plantar fascitis - REPAIR INTERCARP/CARP-METACARP JT Left 06/29/2016 Left thumb CMC arthroplasty with ligament reconstruction and tendon interposition - REVISE MEDIAN N/CARPAL TUNNEL SURG Carpal tunnel decomp bilateral - S SPINAL CORD STIMULATOR, 1999 - TOTAL ABDOM HYSTERECTOMY Hysterectomy, IMTIAZ ALLERGIES Opioids - Morphine Analogues; Pentazocine; Propoxyphene; Steri Strips And Paper Tape [Other]; Talacen [Pentazocine-Acetaminophen] MEDICATIONS aspirin (ZACK CHEWABLE ASPIRIN) 81 mg chewable tablet Take 81 mg by mouth once daily. famotidine (PEPCID AC) 20 mg tablet Take 1 tablet by mouth twice daily. atorvastatin (LIPITOR) 40 mg tablet Take 40 mg by mouth. warfarin (COUMADIN) 5 mg tablet Take 5 mg by mouth. cyclobenzaprine (FLEXERIL) 10 mg tablet Take 1 tablet by mouth three times daily as needed. ALPRAZolam (XANAX) 1 mg tablet Take 1 tablet by mouth at bedtime as needed. methadone 10 mg tablet Take three tablets , three times daily .Pain Management Dr Bassett oxyCODONE-acetaminophen (PERCOCET) 5-325 mg tablet Take 1 tablet by mouth every 8 hours as needed for Pain. Pain Management Dr Bassett FAMILY HISTORY Problem Relation Age of Onset - Cancer Mother lung/brain/pancreatic - Hypertension Father - Cancer Father Colon - Arthritis Father - Heart Sister no details MVP - Arthritis Brother - Stroke Paternal Grandfather - Multiple Sclerosis Sister - No Known Problems Brother Social History Substance Use Topics - Smoking status: Former Smoker Quit date: 02/25/2004 - Smokeless tobacco: Never Used - Alcohol use No PHYSICAL EXAM BP 126/74 Pulse 68 Resp 16 Wt 99.3 kg (219 lb) BMI 36.93 kg/m? General Appearance: well appearing, in no acute distress, alert Pysch: mood and affect broad and appropriate Skin: Skin color, texture, turgor normal for age; Head: normocephalic, atraumatic Eyes: EOM's intact, conjunctiva pink and moist, no icterus, sclera white, non-injected Lungs: Lungs clear to auscultation. No wheezing, rhonchi, rales Heart: RRR without murmur, gallop, or rubs. No ectopy, Positive findings: faint carotid bruit Bilateral Lower Extremities: No edema DTAP,TDAP,TD(1 - Tdap) due on 1981 HEPATITIS C SCREENING due on 2006 FECAL OCCULT BLOOD due on 02/28/2012 MAMMOGRAM due on 12/12/2016 INFLUENZA(1) due on 10/26/2017 DIABETES SCREEN due on 10/10/2020 LIPID SCREEN due on 10/10/2022 ASSESSMENT/PLAN: 1. Internal carotid artery stenosis, right - ICD9: 433.10, ICD10: I65.21 (primary diagnosis) - Patient need further work up of suspected carotid stenosis, per imaging studies performed at [facility]- no carotid stenosis was identified as well as significant focal stenosis of the supraclinoid segment of the right internal carotid. Will repeat imaging for conformation of findings - CTA HEAD WO/W IVCON - CTA NECK W IVCON - IV CONTRAST (RADIOLOGY PROCEDURE) - CONSULT TO VASCULAR SURGERY - Follow up in 1 month as scheduled 2. Ischemic stroke of frontal lobe (HCC) - ICD9: 434.91, ICD10: I63.9 - Improving - Continue with therapy as planned - Upcoming driving assessment, patient hopes to return to work in a month or so pending progress - CTA HEAD WO/W IVCON - CTA NECK W IVCON - IV CONTRAST (RADIOLOGY PROCEDURE) - CONSULT TO VASCULAR SURGERY - Follow up in 1 month as scheduled 3. Frequent headaches - ICD9: 784.0, ICD10: R51 - No acute exam findings, consider residual from CVA vs carotid stenosis? Imaging to follow - Tylenol PRN - Repeat imaging as above 4. Patent foramen ovale - ICD9: 745.5, ICD10: Q21.1 - Follow up with cardiology as previously planned, scheduled 11/25/17 Berhane Luke APRN.HATCH TENDER Prescription instructions reviewed with patient as applicable. Potential red flag symptoms discussed with the patient. Reviewed appropriate action plan to take if red flag symptoms occur. Patient agreeable to treatment plan. CNOV Observed: 10/31/2017 Status: COMPLETED Source: [place] 8:00 AM [facility] REPOSITORY Office Visit (INTMWS) STEPHANIE MOORE ([id number]) 1960 F Date Time Provider Department 10/31/17 8:00 AM BERHANE LUKE (HATCH TENDER) INTMWS During your visit today, we recorded the following information about you: Pulse Respiration Blood pressure Weight 68/minute 16/minute 126/74 99.3 kg Berhane Luke APRN.CNP 10/31/2017 10:11 AM Signed CC: Patient presents with: Recheck: Follow up HPI Stephanie Alan Teresa is a 57 year old female who presents today with for follow up of possible carotid artery stenosis per [facility] imaging studies following CVA August 2017. Also, noted Possible small paten foramen ovale for which patient has follow up with cardiology scheduled November 25, 2017 from her 10/04 appointment. Patient reports doing fairly well at home. Currently active with PT/OT and Speech therapy. She reports having continued issues with equilibrium, visual changes with color for which she has an appointment scheduled today and complaints of intermittent headaches since her CVA. She also notes having issues remembering the day of the week now that she is not working and has mixed up her days and medications. She does note GERD symptoms have improved since starting Pepcid. Patient has since followed up with for evaluation of Factor 5 Leiden mutation where he noted concerns for carotid stenosis per imaging done at [facility] as below: Carotid duplex ultrasound 09/19/2017: No significant atherosclerotic plaque or stenosis in the internal carotid arteries bilaterally. Flow within the vertebral arteries was antegrade bilaterally. CTA head: FINDINGS: Normal bilateral petrous carotid arteries. A significant focal stenosis of the supraclinoid segment of the right internal carotid artery is noted with residual lumen diameter of 1 mm. Normal left cavernous carotid artery with a normal supraclinoid bifurcation. ? Normal right A1 segments of the anterior cerebral artery. Normal left A1 segments of the anterior cerebral artery. Normal intact anterior communicating artery (ACOM). Normal bilateral A2 segments of the anterior cerebral arteries. ? Normal right M1 and M2 segments of the middle cerebral arteries, with a normal M1 bifurcation. Normal left M1 and M2 segments of the middle cerebral arteries, with a normal M1 bifurcation. ? Normal right posterior communicating artery (PCOM). Normal left posterior communicating artery (PCOM). ? Normal bilateral vertebral arteries. Normal basilar artery with a normal basilar bifurcation. The visualized bilateral superior cerebellar (SCA) arteries are normal. ? Normal bilateral P1, P2 and visualized P3 segments of the posterior cerebral arteries. ? There is no demonstrated aneurysm of the [place]. ? IMPRESSION: A significant focal stenosis of the supraclinoid segment of the right internal carotid artery is noted with residual lumen diameter of 1 mm. No other significant intracranial arterial stenoses are detected. No arterial occlusions are seen. ? CTA neck: AORTIC ARCH: Normal visualized aortic arch. Normal origins of the brachiocephalic, left common carotid, and left subclavian arteries. ? RIGHT CAROTID ARTERIES: Normal right common carotid artery (CCA). Normal right common carotid bulb. ? Normal origin of the right internal carotid (ICA) artery without a hemodynamically significant stenosis. Normal visualized cervical portion of the right internal carotid artery. ? Normal origin of the right external carotid artery (ECA). ? LEFT CAROTID ARTERIES: Normal left common carotid artery (CCA). Normal left common carotid bulb. ? Normal origin of the left internal carotid (ICA) artery without a hemodynamically significant stenosis. Normal visualized cervical portion of the left internal carotid artery. ? Normal origin of the left external carotid artery (ECA). ? VERTEBRAL ARTERIES: Normal bilateral vertebral arteries. ? Pulmonary emphysema. IMPRESSION: Normal bilateral cervical carotid and vertebral arteries REVIEW OF SYSTEMS General: no fevers, no chills, no night sweats, no recurrent infections, no change in appetite, no change in energy and no significant changes in weight HEENT: no changes in hearing, no nose bleeds, no sinus or nasal problems, See HPI Neck: no lumps, no pain and no swelling Respiratory: no cough, no wheezing, no shortness of breath, no hemoptysis Cardiovascular: no chest pain, no chest pressure, no palpitations and no swelling Neurologic: no syncope, no seizures, no dizziness, no numbness or tingling of feet, no muscle weakness, no tremor, See HPI PAST MEDICAL HISTORY Diagnosis Date - DVT (deep venous thrombosis) ([facility]) 2009 - Dysthymic disorder Depression (non-psychotic) - Reflex sympathetic dystrophy of the lower limb PAST SURGICAL HISTORY Procedure Laterality Date - DELIVERY ONLY X3 , low cervical - DANDC, DIAG AND/OR THERAPEUTIC Dilation AND curettage - KNEE SCOPE,DIAGNOSTIC 1996,1999 Arthroscopy, knee right X 2 - LAP CHOLECYSTECT/CHOLANGIOGRAPHY - PAST SURGICAL HISTORY OF 2004 removal spinal cord stimulator - PAST SURGICAL HISTORY OF right foot tendon release, - PAST SURGICAL HISTORY OF 07/2014 Left wrist, first dorsal compartment release - PAST SURGICAL HISTORY OF plantar fascitis - REPAIR INTERCARP/CARP-METACARP JT Left 06/29/2016 Left thumb CMC arthroplasty with ligament reconstruction and tendon interposition - REVISE MEDIAN N/CARPAL TUNNEL SURG Carpal tunnel decomp bilateral - S SPINAL CORD STIMULATOR, 1999 - TOTAL ABDOM HYSTERECTOMY Hysterectomy, IMTIAZ ALLERGIES Opioids - Morphine Analogues; Pentazocine; Propoxyphene; Steri Strips And Paper Tape [Other]; Talacen [Pentazocine-Acetaminophen] MEDICATIONS aspirin (ZACK CHEWABLE ASPIRIN) 81 mg chewable tablet Take 81 mg by mouth once daily. famotidine (PEPCID AC) 20 mg tablet Take 1 tablet by mouth twice daily. atorvastatin (LIPITOR) 40 mg tablet Take 40 mg by mouth. warfarin (COUMADIN) 5 mg tablet Take 5 mg by mouth. cyclobenzaprine (FLEXERIL) 10 mg tablet Take 1 tablet by mouth three times daily as needed. ALPRAZolam (XANAX) 1 mg tablet Take 1 tablet by mouth at bedtime as needed. methadone 10 mg tablet Take three tablets , three times daily .Pain Management Dr Bassett oxyCODONE-acetaminophen (PERCOCET) 5-325 mg tablet Take 1 tablet by mouth every 8 hours as needed for Pain. Pain Management Dr Bassett FAMILY HISTORY Problem Relation Age of Onset - Cancer Mother lung/brain/pancreatic - Hypertension Father - Cancer Father Colon - Arthritis Father - Heart Sister no details MVP - Arthritis Brother - Stroke Paternal Grandfather - Multiple Sclerosis Sister - No Known Problems Brother Social History Substance Use Topics - Smoking status: Former Smoker Quit date: 02/25/2004 - Smokeless tobacco: Never Used - Alcohol use No PHYSICAL EXAM BP 126/74 Pulse 68 Resp 16 Wt 99.3 kg (219 lb) BMI 36.93 kg/m? General Appearance: well appearing, in no acute distress, alert Pysch: mood and affect broad and appropriate Skin: Skin color, texture, turgor normal for age; Head: normocephalic, atraumatic Eyes: EOM's intact, conjunctiva pink and moist, no icterus, sclera white, non-injected Lungs: Lungs clear to auscultation. No wheezing, rhonchi, rales Heart: RRR without murmur, gallop, or rubs. No ectopy, Positive findings: faint carotid bruit Bilateral Lower Extremities: No edema DTAP,TDAP,TD(1 - Tdap) due on 1981 HEPATITIS C SCREENING due on 2006 FECAL OCCULT BLOOD due on 02/28/2012 MAMMOGRAM due on 12/12/2016 INFLUENZA(1) due on 10/26/2017 DIABETES SCREEN due on 10/10/2020 LIPID SCREEN due on 10/10/2022 ASSESSMENT/PLAN: 1. Internal carotid artery stenosis, right - ICD9: 433.10, ICD10: I65.21 (primary diagnosis) - Patient need further work up of suspected carotid stenosis, per imaging studies performed at [facility]- no carotid stenosis was identified as well as significant focal stenosis of the supraclinoid segment of the right internal carotid. Will repeat imaging for conformation of findings - CTA HEAD WO/W IVCON - CTA NECK W IVCON - IV CONTRAST (RADIOLOGY PROCEDURE) - CONSULT TO VASCULAR SURGERY - Follow up in 1 month as scheduled 2. Ischemic stroke of frontal lobe (HCC) - ICD9: 434.91, ICD10: I63.9 - Improving - Continue with therapy as planned - Upcoming driving assessment, patient hopes to return to work in a month or so pending progress - CTA HEAD WO/W IVCON - CTA NECK W IVCON - IV CONTRAST (RADIOLOGY PROCEDURE) - CONSULT TO VASCULAR SURGERY - Follow up in 1 month as scheduled 3. Frequent headaches - ICD9: 784.0, ICD10: R51 - No acute exam findings, consider residual from CVA vs carotid stenosis? Imaging to follow - Tylenol PRN - Repeat imaging as above 4. Patent foramen ovale - ICD9: 745.5, ICD10: Q21.1 - Follow up with cardiology as previously planned, scheduled 11/25/17 Berhane Marly, CURRICULUM FACILITATOR.HATCH TENDER Prescription instructions reviewed with patient as applicable. Potential red flag symptoms discussed with the patient. Reviewed appropriate action plan to take if red flag symptoms occur. Patient agreeable to treatment plan. Referring Provider: ANUJ HANSON [[id number]] Allergies As of Date: 10/31/2017 Noted Allergy Reaction OPIOIDS - MORPHINE ANALOGUES 08/29/2000 Comments: vicodin PENTAZOCINE 08/29/2000 Comments: talwin PROPOXYPHENE 08/29/2000 Comments: darvacet steri strips and paper tape [Othe*12/30/2006 TALACEN (PENTAZOCINE-ACETAMINOPHE*08/20/2005 1 - Mental Status Change Date Reviewed: 10/31/2017 Reviewed by: Manda Oropeza LPN - Fully Assessed Reason for Visit: Recheck [92] Cmt: Follow up Primary Visit Diagnosis:Internal carotid artery stenosis, right [I65.21] Other Visit Diagnoses:Ischemic stroke of frontal lobe (HCC) [I63.9] Frequent headaches [R51] Patent foramen ovale [Q21.1] Order(s):CTA HEAD WO/W IVCON [7367179] Order #: [id number] FUTURE CTA NECK W IVCON [[id number]] Order #: [id number] FUTURE iv contrast (will be provided with radiology test)CTA Head/Neck WO/W No IV access, insert saline lock prior to the sedation, infusion, injection for imaging exam. Discontinue saline lock post exam. If Pt. has a central line or IVAD, may access for administration according to line specific nursing protocol. Once exam is complete flush line and de-access according to line specific nursing protocol in the CT contrast administration guidelines link.Disp: 1 EachRfl: 0 CONSULT TO VASCULAR SURGERY [9042] Order #: [id number]: 1 Prescriptions as of 10/31/2017 Sig: ASPIRIN 81 MG CHEWABLE TABLET Take 81 mg by mouth once jose eduardo* FAMOTIDINE 20 MG TABLET Take 1 tablet by mouth twice * ATORVASTATIN 40 MG TABLET Take 40 mg by mouth. WARFARIN 5 MG TABLET Take 5 mg by mouth. ALPRAZOLAM 1 MG TABLET Take 1 tablet by mouth at bed* METHADONE 10 MG TABLET Take three tablets , three ti* OXYCODONE-ACETAMINOPHEN 5 MG-* Take 1 tablet by mouth every * IV CONTRAST (RADIOLOGY PROCED* CTA Head/Neck WO/W No IV acce* CYCLOBENZAPRINE 10 MG TABLET Take 1 tablet by mouth three * Patient not taking: Reported on 10/31/2017 Problem List As Of Date 10/31/2017 Noted Resolved Reflex sympathetic dystrophy of lower limb [G90*INVALID FOR* NEURALGIA/NEURITIS NOS [ISQ1308] INVALID FOR* MONONEURITIS LEG NOS [G57.90] INVALID FOR* DYSTHYMIC DISORDER [F34.1] More... ACUTE CHOLECYSTITIS [K81.0] INVALID FOR* Obesity [E66.9] INVALID FOR* De Quervain's tenosynovitis, left [M65.4] INVALID FOR* CMC arthritis [M19.049] INVALID FOR* Thumb pain [M79.646] INVALID FOR* Ischemic stroke of frontal lobe (HCC) [I63.9] INVALID FOR* Factor 5 Leiden mutation, heterozygous (HCC) [D*INVALID FOR* Anti-cardiolipin antibody positive [R76.8] INVALID FOR* Prescriptions ordered this encounter Disp Refills Start End IV CONTRAST (RADIOLOGY PROCEDURE) 1 Ea* 0 10/31/2017 11/01/2017 Class: In Office Sig: CTA Head/Neck WO/W No IV access, insert saline lock prior to the sedation, infusion, injection for imaging exam. Discontinue saline lock post exam. If Pt. has a central line or IVAD, may access for administration according to line specific nursing protocol. Once exam is complete flush line and de-access according to line specific nursing protocol in the CT contrast administration guidelines link. Encounter Status:Closed by BERHANE LUKE CNP on 10/31/17 PROGRESS Observed: 10/25/2017 Status: COMPLETED Source: [place] 1:37 PM [facility] REPOSITORY HNO ID: [id number] Author: Pauly Lobo LPN Service: (none) Author Type: (none) Type: Progress Notes Filed: 10/25/2017 1:39 PM Note Text: Patient returned call and went over coumadin instructions from Dr Hanson 5 mg and 2.5 mg other days of the week and recheck INR in one week with understanding. Patient will come in and have lab draw done coumadin clinic closed in one week. PROGRESS Observed: 10/25/2017 Status: COMPLETED Source: [place] 1:11 PM [facility] REPOSITORY HNO ID: [id number] Author: Adele Dawn LPN Service: (none) Author Type: (none) Type: Progress Notes Filed: 10/25/2017 1:39 PM Note Text: Left message for patient to call office back and speak with a triage nurse regarding coumadin instructions. Adele Dawn LPN PROGRESS Observed: 10/25/2017 Status: COMPLETED Source: [place] 1:00 PM [facility] REPOSITORY HNO ID: [id number] Author: Anuj Hanson Service: (none) Author Type: Physician Type: Progress Notes Filed: 10/25/2017 1:39 PM Note Text: Please ask patient to get on a regimen of 5 mgs on MWF and 2.5 mgs the rest of the week Recheck in 1 week PROGRESS Observed: 10/25/2017 Status: COMPLETED Source: [place] 11:58 AM [facility] REPOSITORY HNO ID: [id number] Author: Arlene Pacheco RN Service: (none) Author Type: (none) Type: Progress Notes Filed: 10/25/2017 12:00 PM Note Text: patient had inr completed at [facility] patients inr is 1.4 (patients inr range is 2.0-3.0) patient is currently taking 2.5mg daily patients last dose change was on 10/15/17 due to a high level of 5.3 (dose at that time was 5mg daily) patient has had no changes in medication and no missed doses and no change in diet Advised patient that they would be contacted regarding medication dose and when to follow up after information is reviewed by provider. After provider review please contact the patient with information and schedule follow up appointment with coumadin clinic. FYI - if patient needs to have and inr rechecked in the next 1-2 weeks patient will need to be directed to go to the lab for a blood draw due to the coumadin clinic will be closed from 11/01-11/08/17 - thanks PROGRESS Observed: 10/18/2017 Status: COMPLETED Source: [place] 2:55 PM [facility] REPOSITORY HNO ID: [id number] Author: Pauly Lobo LPN Service: (none) Author Type: (none) Type: Progress Notes Filed: 10/18/2017 2:57 PM Note Text: Phoned patient and went over coumadin instructions from Dr Hanson 2.5 mg daily for a week and recheck INR in one week appt scheduled already 10/25/2017 with understanding. Patient asked half tablet daily, she said has 5 mg tablets advised half tablet daily. PROGRESS Observed: 10/18/2017 Status: COMPLETED Source: [place] 11:12 AM [facility] REPOSITORY HNO ID: [id number] Author: Anuj Hanson Service: (none) Author Type: Physician Type: Progress Notes Filed: 10/18/2017 2:57 PM Note Text: Please ask patient to take 2.5 mg daily for a week and recheck in a weeks time PROGRESS Observed: 10/18/2017 Status: COMPLETED Source: [place] 8:15 AM [facility] REPOSITORY HNO ID: [id number] Author: Arlene Pacheco RN Service: (none) Author Type: (none) Type: Progress Notes Filed: 10/18/2017 8:17 AM Note Text: patient had inr completed at [facility] patients inr is 1.6 (patients inr ranges is 2.0-3.0) patient is currently taking 2.5mg time 1 dose patients last dose change was on 10/15/17 due to a high level of 5.3 (dose at that time was 5mg daily) patient has had no changes in medication except for coumadin and no uninstructed missed doses and no change in diet FYI - on 10/15 patient was instructed to hold 2 dose and then take 2.5mg for one dose and then recheck Advised patient that they would be contacted regarding medication dose and when to follow up after information is reviewed by provider. After provider review please contact the patient with information and schedule follow up appointment with coumadin clinic. FYI - patient has been scheduled for a 1 week follow up inr on 10/25/17 PROGRESS Observed: 10/17/2017 Status: COMPLETED Source: [place] 1:24 PM [facility] REPOSITORY HNO ID: [id number] Author: Sophie Mejía Cma Service: (none) Author Type: (none) Type: Progress Notes Filed: 10/17/2017 1:25 PM Note Text: The patient has been identified by name and date of : YES I have scheduled the patient for an appointment on Visit date not found. The patient will report to the lab prior to the visit. PHMA Documentation 10/17/2017 Opts out of Population Health Yes AF/Anticoagulation Declined Sophie Mejía Cma PROGRESS Observed: 10/17/2017 Status: COMPLETED Source: [place] 1:23 PM [facility] REPOSITORY HNO ID: [id number] Author: Sophie Gino Gant Service: (none) Author Type: (none) Type: Progress Notes Filed: 10/17/2017 1:25 PM Note Text: Discussed in teamlet. Patient is on coumadin. No need for Aspirin. Opted out. CNPTOUTREACH Observed: 10/17/2017 Status: COMPLETED Source: [place] 12:00 AM [facility] REPOSITORY Patient Outreach (FAMPWS) STEPHANIE MOORE ([id number]) 1960 F Date Time Provider Department 10/17/17 SOPHIE MEJÍA ([facility]) FAMPWS During your visit today, we recorded the following information about you: Sophie Mejía Cma 10/17/2017 1:25 PM Signed Discussed in teamlet. Patient is on coumadin. No need for Aspirin. Opted out. Sophie Mejía Cma 10/17/2017 1:25 PM Signed The patient has been identified by name and date of : YES I have scheduled the patient for an appointment on Visit date not found. The patient will report to the lab prior to the visit. PHMA Documentation 10/17/2017 Opts out of Population Health Yes AF/Anticoagulation Declined Sophie Mejía Cma Allergies As of Date: 10/17/2017 Noted Allergy Reaction OPIOIDS - MORPHINE ANALOGUES 08/29/2000 Comments: vicodin PENTAZOCINE 08/29/2000 Comments: talwin PROPOXYPHENE 08/29/2000 Comments: darvacet steri strips and paper tape [Othe*12/30/2006 TALACEN (PENTAZOCINE-ACETAMINOPHE*08/20/2005 1 - Mental Status Change Date Reviewed: 10/11/2017 Reviewed by: Jose Beltran - Fully Assessed Reason for Visit: PHMA/Care Gap Outreach [[id number]] Prescriptions as of 10/17/2017 Sig: ASPIRIN 81 MG CHEWABLE TABLET Take 81 mg by mouth once jose eduardo* FAMOTIDINE 20 MG TABLET Take 1 tablet by mouth twice * ATORVASTATIN 40 MG TABLET Take 40 mg by mouth. WARFARIN 5 MG TABLET Take 5 mg by mouth. CYCLOBENZAPRINE 10 MG TABLET Take 1 tablet by mouth three * ALPRAZOLAM 1 MG TABLET Take 1 tablet by mouth at bed* METHADONE 10 MG TABLET Take three tablets , three ti* OXYCODONE-ACETAMINOPHEN 5 MG-* Take 1 tablet by mouth every * Problem List As Of Date 10/17/2017 Noted Resolved Reflex sympathetic dystrophy of lower limb [G90*INVALID FOR* NEURALGIA/NEURITIS NOS [YPN4144] INVALID FOR* MONONEURITIS LEG NOS [G57.90] INVALID FOR* DYSTHYMIC DISORDER [F34.1] More... ACUTE CHOLECYSTITIS [K81.0] INVALID FOR* Obesity [E66.9] INVALID FOR* De Quervain's tenosynovitis, left [M65.4] INVALID FOR* CMC arthritis [M19.049] INVALID FOR* Thumb pain [M79.646] INVALID FOR* Ischemic stroke of frontal lobe (HCC) [I63.9] INVALID FOR* Factor 5 Leiden mutation, heterozygous (HCC) [D*INVALID FOR* Anti-cardiolipin antibody positive [R76.8] INVALID FOR* Encounter Status:Closed by SOPHIE MEJÍA CMA on 10/17/17 CNCO Observed: 10/16/2017 Status: COMPLETED Source: [place] 12:00 AM [facility] REPOSITORY Letter Text [address] [place] [address] [phone] 10/16/2017 Stephanie Moore [address] [facility] [address] Dear Ms. Moore: Due to a change in the provider's schedule, it has been necessary to reschedule your 01/03/18 appointment. Enclosed please find a new appointment reminder that will replace the one previously sent to you. If this appointment is not convenient for you, please contact our office at [phone]. Thank you for choosing the [facility] as your Healthcare Provider. Sincerely, Appointment Office Enclosure PROGRESS Observed: 10/15/2017 Status: COMPLETED Source: [place] 1:36 PM [facility] REPOSITORY HNO ID: [id number] Author: Manda Oropeza LPN Service: (none) Author Type: (none) Type: Progress Notes Filed: 10/15/2017 1:37 PM Note Text: Patient notified of provider instructions. Appointment made for Saturday in coumadin clinic for recheck. PROGRESS Observed: 10/15/2017 Status: COMPLETED Source: [place] 12:36 PM [facility] REPOSITORY HNO ID: [id number] Author: Anuj Hanson Service: (none) Author Type: Physician Type: Progress Notes Filed: 10/15/2017 1:37 PM Note Text: Please ask her to hold today and and tomorrow then take , 2.5 mgs on , recheck on Saturday. PROGRESS Observed: 10/15/2017 Status: COMPLETED Source: [place] 12:08 PM [facility] REPOSITORY HNO ID: [id number] Author: Arlene Pacheco RN Service: (none) Author Type: (none) Type: Progress Notes Filed: 10/15/2017 12:10 PM Note Text: patient had inr completed at [facility] patients inr is 5.3 (patients inr range is 2.0-3.0) patient is currently taking 5mg daily patients last dose change was on 10/08/17 due to normal level of 2.9 and pt was taking lovenox (dose at that time was lovenox twice daily and coumadin 5mg daily) patient has had no changes in medication except for stopping injections and no missed doses and no change in diet FYI - patient has been advised on bleeding precautions and has been advised to hold coumadin until contacted by the office Advised patient that they would be contacted regarding medication dose and when to follow up after information is reviewed by provider. After provider review please contact the patient with information and schedule follow up appointment with coumadin clinic. OT GENERAL EVALUATION Observed: 10/14/2017 Status: F Source: [place] 8:54 AM [facility] REPOSITORY [facility] Occupational [facility] [address] [place] [address] Fax REHABILITATION SERVICES INITIAL EVALUATION MR#: [id number] Acct: [id number] Name: STEPHANIE MOORE Rep #: [id number] : 1960 57 From: Joanna Arambula Referring Dr.: LESLIE Luke Status: REG R Insurance: JANNA Sheriff Date: SELF PAY INSURANCE Patient's Visit Information STEPHANIE MOORE is a 57 year old F, referred to Occupational Therapy by LESLIE Villanueva, with a diagnosis of Ischemic CVA. Date of Evaluation: 10/11/17 Occupational Therapist: Joanna Arambula - Subjective Subjective: Arrived and noted had ischemic CVA around September 19. She was admitted to ER on September 19. Notes no time on rehab unit due to lack of insurance coverage. Noted she has had headache all time since CVA. Explained she is having issue clipping finger nails as well as increased difficulty putting hair in ponytail. Further explained today was first day tying shoes she noted in weeks. 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 - ROM Shoulder: WFL Elbow: WFL Forearm: WFL Wrist: WFL ROM Comments: She is having increased difficulty with unhooking bra. Shoulder ROM needed for tasks is WFL but limited dexterity of fingers limiting movement. Intrinsic weakness noted. - Strength Shoulder: flexion R 5/5 L 4-/5 Elbow: flexion R R 5/5 L 4-/5, ext R 5/5 L 4-/5 Wrist: flex AND ext R 5/5, L 4-/5 Movable Bulkhead Installer: R 50, L 19 Lateral Pinch: R 14, L 7 Tripod Pinch: R 11, L 7 Tip-to-Tip Pinch: R 10, L5 Intrinsics: R 5/5, L 3+/5 Strength Comments: Increased weakness noted t/o L hand. - Sensation Thumb: R 2.83, L 2.83 Index: R 2.83 , L 2.83 Middle: R 2.83, L 3.61 Ring: R 2.83, L 3.22 Little: R 2.83 , L 2.83 Kinesthesia: Normal - Right, Abnormal - Left - Visual/Perceptual Skills Comments: Pt. notes some increased L sided neglect. Will further monitor and test. - Cognitive Skills Follows Directions: Yes Short Term Memory Impaired: Yes Cognitive Comments: Does have ST session to set up. On waitlist to get evaluation. Will be completing [facility] next session. Orientated to all date, person, and place. - Attention Attention: Normal - Nine Hole Peg Right: 23.18 s Left: 108.63 s Comments: Increased difficulty in hand manipulation and dexterity skills with L hand - In-Hand Manipulation Finger to Palm Translation: Normal - Right, Severe - Left Palm to Finger Translation: Normal - Right, Severe - Left Shift: Normal - Right, Moderate - Left Rotation: Normal - Right, Mild - Left - Stroke Specific Quality of Life Total SS-QOL Score: 117 - Goals Goal:: Stephanie to increased L case packer to within 10 lbs of R case packer to promote manipulation of self care items e.g. opening jars by d/c. Goal:: Stephanie to increased L hand dexterity through decreased time of 9 hole pegboard test to promote increased ability to manipulate small items within normal range of L hand by d/c. Goal:: Yany to complete sensory re-education training of L UE to promote increased perceived touch sensation to promote safety and decrease risk of injury to L UE as measurement through two point/monofilament test by d/c. Goal:: Stephanie to be (i) to return to completing all ADLs/IADLs simple cooking tasks, fastners (bra hook and buttons) as well as simple chores to promote increased (I) and ability to complete ADL/IADLs 4/5 trials 80% of the time by d/c. 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 - Rehabilitation General Assessment: Stephanie is s/p ischemic CVA of front lobe with L sided weakness. She exhibits decreased strength and endurance for ADl/IADls. Further deficits noted in in hand and bilateral hand coordination skills. OT to address FMC, in hand manipulation skills, coordination and sensory systems to promote increased strength, endurance, and perceived sensation of L affected hand to help return to PLOF. Rehabilitation Potential: Excellent - Anticipated Interventions Anticipated Interventions: A/AAROM/PROM, Strengthening, Orthoses, Joint Protection/Energy Conservation, Ergonomic Education, Dynamic Sitting Balance, Fine Motor Coord/Jaciel, Neuro Reeducation, ADL Training, Education re assistive Equipment, Caregiver Training, Home Program - Visit Plan Frequency: 2x /Week Duration: 4-6 Weeks General Plan: OT to work on strength, FMC, in hand manipulation skills, sensory processing, VMI, left sided neglect issues as needed, ADl/IADls to promote increased (i) and reutrning to PLOf by d/c. TEXT: Thank you for the opportunity to evaluate your patient. For Medicare and Medicare HMO plans, please review the plan of care and approve it. It will need to be FAXED BACK to us at [phone] for Medicare purposes. Please let me know if there are questions or concerns regarding this plan of care. Physician Signature: Date: <Electronically signed by Joanna Arambula > 10/14/17 0854 CC: LESLIE Luke; Anuj Hanson MD KMMichael Signed For Medicare only, by signing this I certify the plan of care. Physicians Signature Date CNOVSP Observed: 10/11/2017 Status: COMPLETED Source: [place] 1:30 PM [facility] REPOSITORY Visit (SP) Office (MARVA) STEPHANIE MOORE ([id number]) 1960 F Date Time Provider Department 10/11/17 1:30 PM JOSE BELTRAN During your visit today, we recorded the following information about you: Temperature Pulse Blood pressure Weight 98.4 degrees 63/minute 118/58 97.3 kg Height 1.64 m Jose Beltran DO 10/22/2017 1:04 PM Addendum Consult requested by Berhane Luke CNP for my opinion recommendations regarding a patient with recent ischemic stroke and heterozygous factor V Leiden and possible anticardiolipin antibody. The impression and plan will be communicated by way of the shared electronic record. HPI: The patient is a 57-year-old female is a past medical history of DVT (1997; provoked following knee surgery) and RSD of the right knee. Currently stable on methadone and Percocet. She developed the onset of a neurologic complex consisting of looking past people and talking to them and also drifting to the left when she was driving her car. At the prompting of her daughter she presented to emergency department at [facility]. Initial CT scan demonstrated hypoattenuation in the right frontal/temporal region consistent with subacute infarct. Patient was admitted for further workup. Carotid duplex ultrasound 09/19/2017: No significant atherosclerotic plaque or stenosis in the internal carotid arteries bilaterally. Flow within the vertebral arteries was antegrade bilaterally. Transthoracic echocardiogram Normal systolic left ventricular function with an estimated ejection fraction at 65%. There was an apical false tendon. Trivial mitral valve insufficiency as well as trivial tricuspid valve insufficiency was observed. RV pressures could not be determined secondary to technical difficulty. Diastolic function was normal. I'll contrast study was negative for right to left intra-atrial shunt. CTA head: FINDINGS: Normal bilateral petrous carotid arteries. A significant focal stenosis of the supraclinoid segment of the right internal carotid artery is noted with residual lumen diameter of 1 mm. Normal left cavernous carotid artery with a normal supraclinoid bifurcation. Normal right A1 segments of the anterior cerebral artery. Normal left A1 segments of the anterior cerebral artery. Normal intact anterior communicating artery (ACOM). Normal bilateral A2 segments of the anterior cerebral arteries. Normal right M1 and M2 segments of the middle cerebral arteries, with a normal M1 bifurcation. Normal left M1 and M2 segments of the middle cerebral arteries, with a normal M1 bifurcation. Normal right posterior communicating artery (PCOM). Normal left posterior communicating artery (PCOM). Normal bilateral vertebral arteries. Normal basilar artery with a normal basilar bifurcation. The visualized bilateral superior cerebellar (SCA) arteries are normal. Normal bilateral P1, P2 and visualized P3 segments of the posterior cerebral arteries. There is no demonstrated aneurysm of the [place]. IMPRESSION: A significant focal stenosis of the supraclinoid segment of the right internal carotid artery is noted with residual lumen diameter of 1 mm. No other significant intracranial arterial stenoses are detected. No arterial occlusions are seen. CTA neck: AORTIC ARCH: Normal visualized aortic arch. Normal origins of the brachiocephalic, left common carotid, and left subclavian arteries. RIGHT CAROTID ARTERIES: Normal right common carotid artery (CCA). Normal right common carotid bulb. Normal origin of the right internal carotid (ICA) artery without a hemodynamically significant stenosis. Normal visualized cervical portion of the right internal carotid artery. Normal origin of the right external carotid artery (ECA). LEFT CAROTID ARTERIES: Normal left common carotid artery (CCA). Normal left common carotid bulb. Normal origin of the left internal carotid (ICA) artery without a hemodynamically significant stenosis. Normal visualized cervical portion of the left internal carotid artery. Normal origin of the left external carotid artery (ECA). VERTEBRAL ARTERIES: Normal bilateral vertebral arteries. Pulmonary emphysema. MRI brain 09/23/2017: Acute ischemic infarction in the right frontal parietal region with mild subacute hemorrhagic transformation or lamellar necrosis Patient was then transferred to [facility] due to in availability of LEOPOLDO at [facility]. LEOPOLDO 10/01/2017: 1. Left ventricle: The cavity size is normal. Wall thickness is normal. The estimated ejection fraction is 55%. 2. Right ventricle: The cavity size is normal. Systolic function is normal. 3. Left atrium: No evidence of thrombus in the atrial cavity or appendage. No spontaneous echo contrast is observed. The appendage is of normal size. Emptying velocity is normal. 4. Atrial septum: Borderline aneurysmal interatrial septum with possible small patent foramen ovale by color Doppler. No interatrial shunt was observed by Bubble study. 5. Descending aorta: The descending aorta has minor luminal irregularities. 6. No significant valvular abnormalities. Lab work at that institution included a CBC done on that demonstrated white count of 8700. Hemoglobin 11.7 g/dL pill counts are 25,000. Serum creatinine 0.74 mg/dL. LDL was 80 mg/dL and the total cholesterol was 156 mg/dL. Triglycerides were 77 mg/dL. HDL was 61 mg/dL. Electrolytes were unremarkable. Pro time was 13 seconds with an INR 1.0 PTT was 32.9 seconds. Patient had a positive screening for JAMES. There was also evidence of an anticentromere antibody. Protein C, S and AT3 were normal. IgM anticardiolipin antibody was quantitated at 21 units per mL. There was no evidence of anticardiolipin IgG. Beta 2 glycoprotein were all negative. there was no evidence of a lupus anticoagulant. 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 There was no mutation or prothrombin gene. Patient was advised to continue low-dose aspirin 81 mg daily and continue warfarin on discharge. Most recent INR was 2.9. She's had near-complete resolution of her neurologic symptoms. She still but is spitting and physical therapy as she still has a little gait imbalance. She's had no unusual bleeding or unexplained bruising. PMH, medications and allergies personally reviewed by me today. Any changes documented in appropriate section. ROS: Constitutional: Denies episodes of fever and night sweats. Not significantly fatigued. Normal appetite. Neuro: See above. HEENT: No recent change in voice, vision or hearing. Resp: Denies cough, wheeze and hemoptysis. Denies shortness of breath at rest. Denies OROURKE. CVS: Denies exertional chest pain, PND, orthopnea and LE edema. GI: Denies dysgeusia. Denies symptoms of stomatitis. Denies dysphagia and odynophagia. +Frequent heartburn. Denies n/v, change in bowel habits and abdominal pain. : Denies dysuria or gross hematuria. No symptoms of bladder outlet obstruction. Endo: Denies hot flashes. Denies polyuria and polydipsia. Denies heat and cold intolerance. Musculoskeletal: Denies bone, back, joint and muscular pain per se. Stable controlled symptoms of RSD right knee. Derm: Denies rash. Denies jaundice and diffuse pruritis. Heme: See above. Psych: Normal mood. PHYSICAL EXAM: Vitals: Blood pressure 118/58, pulse 63, temperature 36.9 ?C (98.4 ?F), temperature source Temporal Artery, height 164 cm (5' 4.57), weight 97.3 kg (214 lb 8 oz). Well-appearing and in no acute distress. EYES: Sclerae are anicteric bilaterally. NECK: Supple. LYMPHATIC: There is no palpable cervical, supraclavicular, axillary or inguinal adenopathy. RESPIRATORY: Inspiratory breath sounds are of normal intensity in all garcia. No rales, wheezes or rhonchi. CARDIOVASCULAR: Rhythm is regular. Normal intensity S1/S2. There is no gallop or murmur. ABDOMEN: The abdomen is nondistended. No organomegaly. No tenderness. Extremities: No swelling or edema. SKIN: No jaundice or rash. No petechiae. NEUROLOGIC: bobbin dumper II-XII are grossly intact. No focal motor weakness. MUSCULOSKELETAL: No muscle wasting. 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 She has a history of a DVT partially 20 years ago. It was unprovoked DVT albeit it occurred after knee arthroscopic surgery. In retrospect she had factor V Leiden mutation. More recently she had an ischemic stroke with a workup indicating a potential focal narrowing of the right internal carotid artery and a possible small patent foramen ovale. Lab testing was also concerning for a low positive IgM anticardiolipin antibody with no evidence of lupus anticoagulant activity. Given all this clinical information I feel it is important the patient continue on antiplatelet therapy with low-dose aspirin i.e. 81 mg daily along with anticoagulation for the time being. I think she will need eventual long-term anticoagulation but the remaining issues to be addressed are the patent foramen ovale as well as the focal stenotic area in the internal carotid. Plan: -Will contact PCP to arrange follow up for carotid lesion--I'm concerned this may have gotten missed with her transfer from [facility] to [facility]. Jose Beltran DO Addendum [id number]: Earlier today spoke with Dr. Hanson and I spoke with the patient just now regarding the focal narrowing of the a branch of the internal right carotid. Dr. Hanson will be seeing the patient in the near future to coordinate referral to neurovascular specialist for recommendations. DO Tg Raymundo LPN 10/11/2017 1:45 PM Signed New patient. Discuss diagnosis of Factor 5 Leiden mutation. Tg Madison LPN Referring Provider: BERHANE LUKE ([facility]) [[id number]] Allergies As of Date: 10/11/2017 Noted Allergy Reaction OPIOIDS - MORPHINE ANALOGUES 08/29/2000 Comments: vicodin PENTAZOCINE 08/29/2000 Comments: talwin PROPOXYPHENE 08/29/2000 Comments: darvacet steri strips and paper tape [Othe*12/30/2006 TALACEN (PENTAZOCINE-ACETAMINOPHE*08/20/2005 1 - Mental Status Change Date Reviewed: 10/11/2017 Reviewed by: Jose Beltran - Fully Assessed Reason for Visit: New Patient [[id number]] Primary Visit Diagnosis:Ischemic stroke of frontal lobe (HCC) [I63.9] Other Visit Diagnoses:Factor 5 Leiden mutation, heterozygous (HCC) [D68.51] Anti-cardiolipin antibody positive [R76.8] Patent foramen ovale [Q21.1] Follow-up and Disposition History Recorded Prescriptions as of 10/11/2017 Sig: ASPIRIN 81 MG CHEWABLE TABLET Take 81 mg by mouth once jose eduardo* FAMOTIDINE 20 MG TABLET Take 1 tablet by mouth twice * ATORVASTATIN 40 MG TABLET Take 40 mg by mouth. WARFARIN 5 MG TABLET Take 5 mg by mouth. CYCLOBENZAPRINE 10 MG TABLET Take 1 tablet by mouth three * ALPRAZOLAM 1 MG TABLET Take 1 tablet by mouth at bed* METHADONE 10 MG TABLET Take three tablets , three ti* OXYCODONE-ACETAMINOPHEN 5 MG-* Take 1 tablet by mouth every * Medication notes this encounter ATORVASTATIN 40 MG TABLET >> Tg Madison LPN 10/11/2017 1:39 PM >> TG MADISON LPN SatOct 11, 2017 1:39 PM Once a day ASPIRIN-CALCIUM CARBONATE 81 MG-300 MG CALCIUM (777 MG) TABLET >> Tg Madison LPN 10/11/2017 1:40 PM >> TG MADISON LPN SatOct 11, 2017 1:40 PM Not taking CELECOXIB 200 MG CAPSULE >> Tg Madison LPN 10/11/2017 1:39 PM >> TG MADISON LPN SatOct 11, 2017 1:39 PM On hold Problem List As Of Date 10/11/2017 Noted Resolved Reflex sympathetic dystrophy of lower limb [G90*INVALID FOR* NEURALGIA/NEURITIS NOS [LME7196] INVALID FOR* MONONEURITIS LEG NOS [G57.90] INVALID FOR* DYSTHYMIC DISORDER [F34.1] More... ACUTE CHOLECYSTITIS [K81.0] INVALID FOR* Obesity [E66.9] INVALID FOR* De Quervain's tenosynovitis, left [M65.4] INVALID FOR* CMC arthritis [M19.049] INVALID FOR* Thumb pain [M79.646] INVALID FOR* Ischemic stroke of frontal lobe (HCC) [I63.9] INVALID FOR* Factor 5 Leiden mutation, heterozygous (HCC) [D*INVALID FOR* Anti-cardiolipin antibody positive [R76.8] INVALID FOR* Visit Notes: >> Tg Madison LPN SatOct 11, 2017 1:40 PM Status: Signed New patient. Discuss diagnosis of Factor 5 Leiden mutation. Tg Madison LPN Encounter Status:Closed by JOSE BELTRAN DO on 10/14/17 PROGRESS Observed: 10/11/2017 Status: COMPLETED Source: [place] 12:49 PM [facility] REPOSITORY HNO ID: [id number] Author: Jose Beltran Service: (none) Author Type: Physician Type: Progress Notes Filed: 10/22/2017 1:04 PM Note Text: Consult requested by Berhane Luke CNP for my opinion recommendations regarding a patient with recent ischemic stroke and heterozygous factor V Leiden and possible anticardiolipin antibody. The impression and plan will be communicated by way of the shared electronic record. HPI: The patient is a 57-year-old female is a past medical history of DVT (1997; provoked following knee surgery) and RSD of the right knee. Currently stable on methadone and Percocet. She developed the onset of a neurologic complex consisting of looking past people and talking to them and also drifting to the left when she was driving her car. At the prompting of her daughter she presented to emergency department at [facility]. Initial CT scan demonstrated hypoattenuation in the right frontal/temporal region consistent with subacute infarct. Patient was admitted for further workup. Carotid duplex ultrasound 09/19/2017: No significant atherosclerotic plaque or stenosis in the internal carotid arteries bilaterally. Flow within the vertebral arteries was antegrade bilaterally. Transthoracic echocardiogram Normal systolic left ventricular function with an estimated ejection fraction at 65%. There was an apical false tendon. Trivial mitral valve insufficiency as well as trivial tricuspid valve insufficiency was observed. RV pressures could not be determined secondary to technical difficulty. Diastolic function was normal. I'll contrast study was negative for right to left intra-atrial shunt. CTA head: FINDINGS: Normal bilateral petrous carotid arteries. A significant focal stenosis of the supraclinoid segment of the right internal carotid artery is noted with residual lumen diameter of 1 mm. Normal left cavernous carotid artery with a normal supraclinoid bifurcation. Normal right A1 segments of the anterior cerebral artery. Normal left A1 segments of the anterior cerebral artery. Normal intact anterior communicating artery (ACOM). Normal bilateral A2 segments of the anterior cerebral arteries. Normal right M1 and M2 segments of the middle cerebral arteries, with a normal M1 bifurcation. Normal left M1 and M2 segments of the middle cerebral arteries, with a normal M1 bifurcation. Normal right posterior communicating artery (PCOM). Normal left posterior communicating artery (PCOM). Normal bilateral vertebral arteries. Normal basilar artery with a normal basilar bifurcation. The visualized bilateral superior cerebellar (SCA) arteries are normal. Normal bilateral P1, P2 and visualized P3 segments of the posterior cerebral arteries. There is no demonstrated aneurysm of the [place]. IMPRESSION: A significant focal stenosis of the supraclinoid segment of the right internal carotid artery is noted with residual lumen diameter of 1 mm. No other significant intracranial arterial stenoses are detected. No arterial occlusions are seen. CTA neck: AORTIC ARCH: Normal visualized aortic arch. Normal origins of the brachiocephalic, left common carotid, and left subclavian arteries. RIGHT CAROTID ARTERIES: Normal right common carotid artery (CCA). Normal right common carotid bulb. Normal origin of the right internal carotid (ICA) artery without a hemodynamically significant stenosis. Normal visualized cervical portion of the right internal carotid artery. Normal origin of the right external carotid artery (ECA). LEFT CAROTID ARTERIES: Normal left common carotid artery (CCA). Normal left common carotid bulb. Normal origin of the left internal carotid (ICA) artery without a hemodynamically significant stenosis. Normal visualized cervical portion of the left internal carotid artery. Normal origin of the left external carotid artery (ECA). VERTEBRAL ARTERIES: Normal bilateral vertebral arteries. Pulmonary emphysema. MRI brain 09/23/2017: Acute ischemic infarction in the right frontal parietal region with mild subacute hemorrhagic transformation or lamellar necrosis Patient was then transferred to [facility] due to in availability of LEOPOLDO at [facility]. LEOPOLDO 10/01/2017: 1. Left ventricle: The cavity size is normal. Wall thickness is normal. The estimated ejection fraction is 55%. 2. Right ventricle: The cavity size is normal. Systolic function is normal. 3. Left atrium: No evidence of thrombus in the atrial cavity or appendage. No spontaneous echo contrast is observed. The appendage is of normal size. Emptying velocity is normal. 4. Atrial septum: Borderline aneurysmal interatrial septum with possible small patent foramen ovale by color Doppler. No interatrial shunt was observed by Bubble study. 5. Descending aorta: The descending aorta has minor luminal irregularities. 6. No significant valvular abnormalities. Lab work at that institution included a CBC done on that demonstrated white count of 8700. Hemoglobin 11.7 g/dL pill counts are 25,000. Serum creatinine 0.74 mg/dL. LDL was 80 mg/dL and the total cholesterol was 156 mg/dL. Triglycerides were 77 mg/dL. HDL was 61 mg/dL. Electrolytes were unremarkable. Pro time was 13 seconds with an INR 1.0 PTT was 32.9 seconds. Patient had a positive screening for JAMES. There was also evidence of an anticentromere antibody. Protein C, S and AT3 were normal. IgM anticardiolipin antibody was quantitated at 21 units per mL. There was no evidence of anticardiolipin IgG. Beta 2 glycoprotein were all negative. there was no evidence of a lupus anticoagulant. 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 There was no mutation or prothrombin gene. Patient was advised to continue low-dose aspirin 81 mg daily and continue warfarin on discharge. Most recent INR was 2.9. She's had near-complete resolution of her neurologic symptoms. She still but is spitting and physical therapy as she still has a little gait imbalance. She's had no unusual bleeding or unexplained bruising. PMH, medications and allergies personally reviewed by me today. Any changes documented in appropriate section. ROS: Constitutional: Denies episodes of fever and night sweats. Not significantly fatigued. Normal appetite. Neuro: See above. HEENT: No recent change in voice, vision or hearing. Resp: Denies cough, wheeze and hemoptysis. Denies shortness of breath at rest. Denies OROURKE. CVS: Denies exertional chest pain, PND, orthopnea and LE edema. GI: Denies dysgeusia. Denies symptoms of stomatitis. Denies dysphagia and odynophagia. +Frequent heartburn. Denies n/v, change in bowel habits and abdominal pain. : Denies dysuria or gross hematuria. No symptoms of bladder outlet obstruction. Endo: Denies hot flashes. Denies polyuria and polydipsia. Denies heat and cold intolerance. Musculoskeletal: Denies bone, back, joint and muscular pain per se. Stable controlled symptoms of RSD right knee. Derm: Denies rash. Denies jaundice and diffuse pruritis. Heme: See above. Psych: Normal mood. PHYSICAL EXAM: Vitals: Blood pressure 118/58, pulse 63, temperature 36.9 ?C (98.4 ?F), temperature source Temporal Artery, height 164 cm (5' 4.57), weight 97.3 kg (214 lb 8 oz). Well-appearing and in no acute distress. EYES: Sclerae are anicteric bilaterally. NECK: Supple. LYMPHATIC: There is no palpable cervical, supraclavicular, axillary or inguinal adenopathy. RESPIRATORY: Inspiratory breath sounds are of normal intensity in all garcia. No rales, wheezes or rhonchi. CARDIOVASCULAR: Rhythm is regular. Normal intensity S1/S2. There is no gallop or murmur. ABDOMEN: The abdomen is nondistended. No organomegaly. No tenderness. Extremities: No swelling or edema. SKIN: No jaundice or rash. No petechiae. NEUROLOGIC: bobbin dumper II-XII are grossly intact. No focal motor weakness. MUSCULOSKELETAL: No muscle wasting. ASSESSMENT/PLAN: (I63.9) Ischemic stroke of frontal lobe (HCC) (primary encounter diagnosis) (D68.51) Factor 5 Leiden mutation, heterozygous ([facility]) (R76.8) Anti-cardiolipin antibody positive (Q21.1) Patent foramen ovale Assessment: -I reviewed all the patient's radiographic and laboratory studies in detail with her and her . She has a history of a DVT partially 20 years ago. It was unprovoked DVT albeit it occurred after knee arthroscopic surgery. In retrospect she had factor V Leiden mutation. More recently she had an ischemic stroke with a workup indicating a potential focal narrowing of the right internal carotid artery and a possible small patent foramen ovale. Lab testing was also concerning for a low positive IgM anticardiolipin antibody with no evidence of lupus anticoagulant activity. Given all this clinical information I feel it is important the patient continue on antiplatelet therapy with low-dose aspirin i.e. 81 mg daily along with anticoagulation for the time being. I think she will need eventual long-term anticoagulation but the remaining issues to be addressed are the patent foramen ovale as well as the focal stenotic area in the internal carotid. Plan: -Will contact PCP to arrange follow up for carotid lesion--I'm concerned this may have gotten missed with her transfer from [facility] to [facility]. Jose Beltran DO Addendum [phone]: Earlier today spoke with Dr. Hanson and I spoke with the patient just now regarding the focal narrowing of the a branch of the internal right carotid. Dr. Hanson will be seeing the patient in the near future to coordinate referral to neurovascular specialist for recommendations. Jose Beltran DO BASIC METABOLIC PANL Collected: 10/10/2017 Status: F Source: [place] 10:00 AM [facility] REPOSITORY TYPE CODE TESTS RESULT OUT OF REFERENCE UNITS RANGE LAB GLU 74-99 mg/dL Glucose 94 Result Comment: The [place] Diabetes Association (ADA) provides guidance for cutoff values for fasting glucose and random glucose. The ADA defines fasting as no caloric intake for at least 8 hours. Fas ting plasma glucose results between 100 to 125 mg/dL indicate increased risk for diabetes (prediabetes). Fasting plasma glucose results greater than or equal to 126 mg/dL meet the criteria for diagnosis of diabetes. In the absence of unequivocal hyperglycemia, results should be confirmed by repeat testing. In a patient with classic symptoms of hyperglycemia or hyperglycemic crisis, random plasma glucose results greater than or equal to 200 mg/dL meet the criteria for diagnosis of diabetes. Reference: Standards of Medical Care in Diabetes 2016, [place] Diabetes Association. Diabetes Care. 2016.39(Suppl 1). LAB BUN 7-21 mg/dL BUN 14 LAB CRET 0.58-0.96 mg/dL Creatinine 0.70 LAB NA 136-144 mmol/L Sodium 140 LAB K 3.7-5.1 mmol/L Potassium 4.1 LAB CL 97-105 mmol/L Chloride 100 LAB CO2 22-30 mmol/L CO2 27 LAB AGAP 9-18 mmol/L Anion Gap 13 LAB CA 8.5-10.2 mg/dL Calcium, Total 9.3 LAB GFRAA eGFR- Amer. >60 LAB GFRNAA . eGFR-All Other Races >60 Result Comment: eGFR (Estimated GFR) Units of measure: mL/min/1.73 meters squared eGFR is derived from the reexpressed MDRD Study equation using the following parameters: serum creatinine, age, gender and race. The creatinine assay has been calibrated to be traceable to IDMS. An eGFR <60 mL/min/1.73m2 for >3 months is consistent with chronic kidney disease. Refer to KDOQI guidelines for clinical interpretation. In patients with unstable renal function, e.g. those with acute kidney injury, the eGFR may not accurately reflect actual GFR. Performed By: #### BMP, LIPB #### [facility] [employer] [address] [place], [place] [address] LIPID PANEL, BASIC Collected: 10/10/2017 Status: F Source: [place] 10:00 AM [facility] REPOSITORY TYPE CODE TESTS RESULT OUT OF REFERENCE UNITS RANGE LAB CHOL <200 mg/dL Cholesterol 135 Result Comment: <200 mg/dL, Desirable 200-239 mg/dL, Borderline high >239 mg/dL, High LAB TRIGLY <150 mg/dL Triglyceride 105 Result Comment: <150 mg/dL, Normal 150-199 mg/dL, Borderline high 200-499 mg/dL, High >499 mg/dL, Very high LAB HDL >39 mg/dL HDL-Cholesterol 58 Result Comment: 40-59 mg/dL, Acceptable >59 mg/dL, High: Negative risk factor for coronary heart disease <40 mg/dL, Low: Positive risk factor for coronary heart disease LAB LDL <100 mg/dL LDL-Cholesterol 56 Result Comment: <100 mg/dL, Optimal 100-129 mg/dL, Near optimal/above optimal 130-159 mg/dL, Borderline high 160-189 mg/dL, High >189 mg/dL, Very high Secondary prevention optimal LDL Cholesterol levels are recommended to be < 70 mg/dL LAB NONHDL <130 mg/dL Non HDL Cholesterol 77 Result Comment: <130 mg/dL, Optimal 130-159 mg/dL, Near optimal/above optimal 160-189 mg/dL, Borderline high 190-219 mg/dL, High >219 mg/dL, Very high Secondary prevention optimal non HDL Cholesterol levels are recommended to be < 100 mg/dL LAB FT hrs Fasting Time 12 LAB VLDL <30 mg/dL VLDL Cholesterol 21 LAB TCHDL <5.10 TC:HDL Ratio 2.33 LAB LDLHDL <2.54 LDL:HDL Ratio 0.97 Result Comment: Reference: 1. National Cholesterol Education Program ATP III Guideline At-A-Glance Quick Desk Reference: National Heart, Lung, and Blood [place]. National Institutes of Health. 2001: NIH Publication No. 01-3305. 2. An International Atherosclerosis Society position paper: global recommendations for the management of dyslipidemia: executive summary, Atherosclerosis. 2014: 232(2):410-413. Performed By: #### BMP, LIPB #### [facility] [facility] [address] [id number] PROGRESS Observed: 10/08/2017 Status: COMPLETED Source: [place] 4:48 PM [facility] REPOSITORY HNO ID: [id number] Author: Arlene Pacheco RN Service: (none) Author Type: (none) Type: Progress Notes Filed: 10/08/2017 4:49 PM Note Text: per written order by dr copeland she agrees with information PROGRESS Observed: 10/08/2017 Status: COMPLETED Source: [place] 2:55 PM [facility] REPOSITORY HNO ID: [id number] Author: Arlene Pacheco RN Service: (none) Author Type: (none) Type: Progress Notes Filed: 10/08/2017 2:56 PM Note Text: patient had inr completed at [facility] patients inr is 2.9 (patients inr range is 2.0-3.0) patient is currently taking 5mg daily patients last dose change was on 10/07/17 due to stopping lovenox (dose was lovenox twice daily and 5mg coumadin) patient has had no changes in medication except for the lovenox and no change in diet Advised patient to continue on the same dose(s) and that they would only be contacted regarding dosage and follow up instructions after review with provider, if a change is needed. Written instructions given and patient verbalized understanding. Presently scheduled in 1 week (10/15/17) for follow up INR. PROGRESS Observed: 10/04/2017 Status: COMPLETED Source: [place] 5:17 PM [facility] REPOSITORY HNO ID: [id number] Author: Berhane Luke Service: (none) Author Type: Nurse Practitioner Type: Progress Notes Filed: 10/04/2017 5:19 PM Note Text: Patient instructed to increase coumadin to 10mg tonight and tomorrow then resume 5mg daily. Concerned patient will not be therapeutic by the time Lovenox injections are complete. Berhane Luke APRN.CNP PROGRESS Observed: 10/04/2017 Status: COMPLETED Source: [place] 12:45 PM [facility] REPOSITORY HNO ID: [id number] Author: Arlene Pacheco RN Service: (none) Author Type: (none) Type: Progress Notes Filed: 10/04/2017 12:46 PM Note Text: patient had inr completed at [facility] patients inr is 1.4 (patients inr range is 2.0-3.0) patient is currently taking lovenox injection twice daily and coumadin 5mg daily patients last dose change unsure as patient is new to the patient has had no changes in medication and no change in diet patient has 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 Berhane Luke and has been instructed to discuss dosing at that appt patient has been scheduled for a follow up inr on Saturday (10/08/17) PROGRESS Observed: 10/04/2017 Status: COMPLETED Source: [place] 11:35 AM [facility] REPOSITORY HNO ID: [id number] Author: Berhane Luke Service: (none) Author Type: Nurse Practitioner Type: Progress Notes Filed: 10/07/2017 9:49 AM Note Text: CC: Patient presents with: Recheck: Hosp follow up, CVA.Patient statess having a lot of heartburn and headaches HPI Stephanie Moore is a 57 year old female who presents today with daughter for Hospital follow up. Patient was adimitted to [facility] on 09/19- 09/30/17. Patient presented to the ER with complains of headache and weakness over the past week. Initial work up was fairly unremarkable except elevated WBC 13.[address] of the head showed concerning area of attenuation in the right frontal lobe concerning for an acute or subacute infarct. MRI was delayed d/t spinal cord stimulator, eventually okayed for MRI by neurology. MRI revealed an acute ischemic infarction in the right frontal parietal region with mild subacute hemorrhage transformation or lamellar necrosis. LEOPOLDO was unable to be completed d/t equipment malfunction and patient was transferred to [facility] for further care. During patient's short stay at [facility], she was evaluated hematology where she was diagnosed with Heterozygous Factor V Leiden and her autoimmune panel was abnormal. Patient Started on Lovenox BID and Coumadin 5mg daily until INR therapeutic 2.0-3.0. It was recommended by hematology that she have hypercoag panel rechecked in 12 weeks, should it return to normal she may transition to ASA daily and stop Coumadin. JAMES, Centromere B AB and KARLEY IgM all positive- outpatient rheumatology was recommended. Cardiology consult also recommended for follow up on LEOPOLDO results showing borderline aneurysmal interatrial septum and minor luminal irregularities to the descending aorta and EF 55% Patient was discharged home with family. She presents today feeling okay. Complains of some nausea and decreased appetite. Patient reports she made herself toast this morning. Daughter notes some minor forgetfulness and occasional staring episodes similar to before stroke diagnosis. Patient is getting around okay without use of assistive device, however patient and daughter note some imbalance and lightheadedness d/t visual disturbance of left eye. Patient was able to shower self prior to appointment today. She has not started outpatient therapy at this time- requesting speech therapy consult since it was not ordered on discharge, as well as cardiology, rheumatology/immunology and hematology consults. INR 1.4 at [facility] visit prior to this visit. Patient currently on Lovenox SQ BID and Coumadin 5mg daily. She has INR check scheduled in 5 days. REVIEW OF SYSTEMS General: no fevers, no chills, no night sweats, no recurrent infections, no significant changes in weight. Positive: decreased appetite and fatigue HEENT: no frequent or significant headaches, no changes in hearing, no nose bleeds, no sinus or nasal problems, Positive for: visual changes to left eye Neck: no lumps, no pain and no swelling Respiratory: no cough, no wheezing, no shortness of breath, no hemoptysis Cardiovascular: no chest pain, no chest pressure, no palpitations and no swelling GI: Negative for abdominal discomfort, blood in stools or black stools, change in bowel habit, vomiting, Positive for heart burn , nausea and See HPI : No history of dysuria, frequency or incontinence Skin: Negative for lesions, rash, and itching Hematologic/Lymph: Negative for prolonged bleeding, bruising easily or swollen nodes Endocrine: no weight gain, no weight loss, no hair loss, no dry skin, no cold intolerance, no heat intolerance, no neck pain/pressure, no polyuria, no polyphagia, no polydipsia and See HPI Neurologic: no headaches, no syncope, no seizures, no numbness or tingling of feet, no involuntary movements, no tremor, Positive for: muscle weakness, lightheadedness and see HPI PAST MEDICAL HISTORY Diagnosis Date - DVT (deep venous thrombosis) ([facility]) 2009 - Dysthymic disorder Depression (non-psychotic) - Reflex sympathetic dystrophy of the lower limb PAST SURGICAL HISTORY Procedure Laterality Date - DELIVERY ONLY X3 , low cervical - DANDC, DIAG AND/OR THERAPEUTIC Dilation AND curettage - KNEE SCOPE,DIAGNOSTIC 1996,1999 Arthroscopy, knee right X 2 - LAP CHOLECYSTECT/CHOLANGIOGRAPHY - PAST SURGICAL HISTORY OF 2004 removal spinal cord stimulator - PAST SURGICAL HISTORY OF right foot tendon release, - PAST SURGICAL HISTORY OF 07/2014 Left wrist, first dorsal compartment release - PAST SURGICAL HISTORY OF plantar fascitis - REPAIR INTERCARP/CARP-METACARP JT Left 06/29/2016 Left thumb CMC arthroplasty with ligament reconstruction and tendon interposition - REVISE MEDIAN N/CARPAL TUNNEL SURG Carpal tunnel decomp bilateral - S SPINAL CORD STIMULATOR, 1999 - TOTAL ABDOM HYSTERECTOMY Hysterectomy, IMTIAZ ALLERGIES Opioids - Morphine Analogues; Pentazocine; Propoxyphene; Steri Strips And Paper Tape [Other]; Talacen [Pentazocine-Acetaminophen] MEDICATIONS aspirin-calcium carbonate 81 mg-300 mg calcium(777 mg) tab Take 81 mg by mouth. atorvastatin (LIPITOR) 40 mg tablet Take 40 mg by mouth. warfarin (COUMADIN) 5 mg tablet Take 5 mg by mouth. enoxaparin (LOVENOX) 300 mg/3 mL soln 100 mg by SUBDERMAL route. cyclobenzaprine (FLEXERIL) 10 mg tablet Take 1 tablet by mouth three times daily as needed. celecoxib (CELEBREX) 200 mg capsule Take 1 capsule by mouth as needed. ALPRAZolam (XANAX) 1 mg tablet Take 1 tablet by mouth at bedtime as needed. methadone 10 mg tablet Take three tablets , three times daily .Pain Management Dr Bassett oxyCODONE-acetaminophen (PERCOCET) 5-325 mg tablet Take 1 tablet by mouth every 8 hours as needed for Pain. Pain Management Dr Bassett FAMILY HISTORY Problem Relation Age of Onset - Cancer Mother lung - Colon Cancer Father - Hypertension Father - Heart Sister no details MVP Social History Substance Use Topics - Smoking status: Former Smoker Quit date: 02/25/2004 - Smokeless tobacco: Never Used - Alcohol use No PHYSICAL EXAM BP 122/70 Pulse 66 Temp 36.4 ?C (97.6 ?F) (Temporal Artery) Resp 16 Wt 97.1 kg (214 lb) SpO2 98% BMI 35.65 kg/m? General Appearance: well appearing, in no acute distress, alert Pysch: mood and affect flat and restricted Skin: Skin color, texture, turgor normal for age; Head: normocephalic, atraumatic Eyes: PERRLA, EOM's intact, conjunctiva pink and moist, no icterus, sclera white, non-injected, Lungs: Lungs clear to auscultation. No wheezing, rhonchi, rales Heart: RRR without murmur, gallop, or rubs. No ectopy Bilateral Lower Extremities: no edema Neurological: Gait normal. Reflexes normal and symmetric. Sensation grossly intact., Negative findings: R handed., speech normal, mental status intact, cranial nerves 2-12 intact, muscle tone normal, rapid alternating movements normal, finger to nose normal, sensation to light touch and pinprick normal, Positive findings: left facial droop and nystagmus noted- mild, muscular weakness left upper and lower extremity. DTAP,TDAP,TD(1 - Tdap) due on 1981 HEPATITIS C SCREENING due on 2006 LIPID SCREEN due on 04/09/2010 FECAL OCCULT BLOOD due on 02/28/2012 MAMMOGRAM due on 12/12/2016 INFLUENZA(1) due on 10/26/2017 DIABETES SCREEN due on 06/23/2019 ASSESSMENT/PLAN: 1. Ischemic stroke of frontal lobe (HCC) - ICD9: 434.91, ICD10: I63.9 (primary diagnosis) - Recovering as anticipated - Continue Lipitor and Coumadin, may eventually discontinue coumadin pending anticoagulation follow up - CONSULT TO CARDIOLOGY - CONSULT SPEECH THERAPY - CONSULT TO PHYSICAL THERAPY - CONSULT TO WATCH ASSEMBLY INSTRUCTOR - Follow up in 1 month - [place] paperwork to be filled out as patient will need outpatient therapy and should not drive at this time 2. Left-sided weakness - ICD9: 728.87, ICD10: R53.1 - Assessment and plan as above - CONSULT TO PHYSICAL THERAPY - CONSULT TO WATCH ASSEMBLY INSTRUCTOR 3. Factor 5 Leiden mutation, heterozygous (HCC) - ICD9: 289.81, ICD10: D68.51 - On Lovenox bridging to Coumadin, INR 1.4 today - Increase coumadin to 10mg today and tomorrow, then resume 5 mg daily. Concerned patient will not be therapeutic before she completes Lovenox therapy - Check INR in 5 days - Pending hematology consult and anticoag panel in 12 weeks, patient may eventually transition to only daily ASA - CONSULT TO HEMATOLOGY - Follow up in 1 month with PCP as scheduled. 4. Autoimmune disorder (HCC) - ICD9: 279.49, ICD10: D89.89 - JAMES, Centromere B AB and KARLEY IgM all positive during [facility] admisison - CONSULT TO RHEUM/IMMUN DISEASE - CONSULT TO CARDIOLOGY Berhane Luke APRN.CNP Prescription instructions reviewed with patient as applicable. Potential red flag symptoms discussed with the patient. Reviewed appropriate action plan to take if red flag symptoms occur. Patient agreeable to treatment plan. CNOV Observed: 10/04/2017 Status: COMPLETED Source: [place] 11:20 AM [facility] REPOSITORY Office Visit (INTMWS) MERCEDSTEPHANIE STILL ([id number]) 1960 F Date Time Provider Department 10/04/17 11:20 AM BERHANE LUKE ([facility]) INTMWS During your visit today, we recorded the following information about you: Temperature Pulse Respiration Blood pressure 97.6 degrees 66/minute 16/minute 122/70 Weight 97.1 kg Berhane Luke APRN.CNP 10/07/2017 9:49 AM Signed CC: Patient presents with: Recheck: Hosp follow up, CVA.Patient statess having a lot of heartburn and headaches HPI Stephanie Moore is a 57 year old female who presents today with daughter for Hospital follow up. Patient was adimitted to [facility] on 09/19- 09/30/17. Patient presented to the ER with complains of headache and weakness over the past week. Initial work up was fairly unremarkable except elevated WBC 13.[address] of the head showed concerning area of attenuation in the right frontal lobe concerning for an acute or subacute infarct. MRI was delayed d/t spinal cord stimulator, eventually okayed for MRI by neurology. MRI revealed an acute ischemic infarction in the right frontal parietal region with mild subacute hemorrhage transformation or lamellar necrosis. LEOPOLDO was unable to be completed d/t equipment malfunction and patient was transferred to [facility] for further care. During patient's short stay at [facility], she was evaluated hematology where she was diagnosed with Heterozygous Factor V Leiden and her autoimmune panel was abnormal. Patient Started on Lovenox BID and Coumadin 5mg daily until INR therapeutic 2.0-3.0. It was recommended by hematology that she have hypercoag panel rechecked in 12 weeks, should it return to normal she may transition to ASA daily and stop Coumadin. JAMES, Centromere B AB and KARLEY IgM all positive- outpatient rheumatology was recommended. Cardiology consult also recommended for follow up on LEOPOLDO results showing borderline aneurysmal interatrial septum and minor luminal irregularities to the descending aorta and EF 55% Patient was discharged home with family. She presents today feeling okay. Complains of some nausea and decreased appetite. Patient reports she made herself toast this morning. Daughter notes some minor forgetfulness and occasional staring episodes similar to before stroke diagnosis. Patient is getting around okay without use of assistive device, however patient and daughter note some imbalance and lightheadedness d/t visual disturbance of left eye. Patient was able to shower self prior to appointment today. She has not started outpatient therapy at this time- requesting speech therapy consult since it was not ordered on discharge, as well as cardiology, rheumatology/immunology and hematology consults. INR 1.4 at [facility]in Clinic visit prior to this visit. Patient currently on Lovenox SQ BID and Coumadin 5mg daily. She has INR check scheduled in 5 days. REVIEW OF SYSTEMS General: no fevers, no chills, no night sweats, no recurrent infections, no significant changes in weight. Positive: decreased appetite and fatigue HEENT: no frequent or significant headaches, no changes in hearing, no nose bleeds, no sinus or nasal problems, Positive for: visual changes to left eye Neck: no lumps, no pain and no swelling Respiratory: no cough, no wheezing, no shortness of breath, no hemoptysis Cardiovascular: no chest pain, no chest pressure, no palpitations and no swelling GI: Negative for abdominal discomfort, blood in stools or black stools, change in bowel habit, vomiting, Positive for heart burn , nausea and See HPI : No history of dysuria, frequency or incontinence Skin: Negative for lesions, rash, and itching Hematologic/Lymph: Negative for prolonged bleeding, bruising easily or swollen nodes Endocrine: no weight gain, no weight loss, no hair loss, no dry skin, no cold intolerance, no heat intolerance, no neck pain/pressure, no polyuria, no polyphagia, no polydipsia and See HPI Neurologic: no headaches, no syncope, no seizures, no numbness or tingling of feet, no involuntary movements, no tremor, Positive for: muscle weakness, lightheadedness and see HPI PAST MEDICAL HISTORY Diagnosis Date - DVT (deep venous thrombosis) ([facility]) 2009 - Dysthymic disorder Depression (non-psychotic) - Reflex sympathetic dystrophy of the lower limb PAST SURGICAL HISTORY Procedure Laterality Date - DELIVERY ONLY X3 , low cervical - DANDC, DIAG AND/OR THERAPEUTIC Dilation AND curettage - KNEE SCOPE,DIAGNOSTIC 1996,1999 Arthroscopy, knee right X 2 - LAP CHOLECYSTECT/CHOLANGIOGRAPHY - PAST SURGICAL HISTORY OF 2004 removal spinal cord stimulator - PAST SURGICAL HISTORY OF right foot tendon release, - PAST SURGICAL HISTORY OF 07/2014 Left wrist, first dorsal compartment release - PAST SURGICAL HISTORY OF plantar fascitis - REPAIR INTERCARP/CARP-METACARP JT Left 06/29/2016 Left thumb CMC arthroplasty with ligament reconstruction and tendon interposition - REVISE MEDIAN N/CARPAL TUNNEL SURG Carpal tunnel decomp bilateral - S SPINAL CORD STIMULATOR, 1999 - TOTAL ABDOM HYSTERECTOMY Hysterectomy, IMTIAZ ALLERGIES Opioids - Morphine Analogues; Pentazocine; Propoxyphene; Steri Strips And Paper Tape [Other]; Talacen [Pentazocine-Acetaminophen] MEDICATIONS aspirin-calcium carbonate 81 mg-300 mg calcium(777 mg) tab Take 81 mg by mouth. atorvastatin (LIPITOR) 40 mg tablet Take 40 mg by mouth. warfarin (COUMADIN) 5 mg tablet Take 5 mg by mouth. enoxaparin (LOVENOX) 300 mg/3 mL soln 100 mg by SUBDERMAL route. cyclobenzaprine (FLEXERIL) 10 mg tablet Take 1 tablet by mouth three times daily as needed. celecoxib (CELEBREX) 200 mg capsule Take 1 capsule by mouth as needed. ALPRAZolam (XANAX) 1 mg tablet Take 1 tablet by mouth at bedtime as needed. methadone 10 mg tablet Take three tablets , three times daily .Pain Management Dr Bassett oxyCODONE-acetaminophen (PERCOCET) 5-325 mg tablet Take 1 tablet by mouth every 8 hours as needed for Pain. Pain Management Dr Bassett FAMILY HISTORY Problem Relation Age of Onset - Cancer Mother lung - Colon Cancer Father - Hypertension Father - Heart Sister no details MVP Social History Substance Use Topics - Smoking status: Former Smoker Quit date: 02/25/2004 - Smokeless tobacco: Never Used - Alcohol use No PHYSICAL EXAM BP 122/70 Pulse 66 Temp 36.4 ?C (97.6 ?F) (Temporal Artery) Resp 16 Wt 97.1 kg (214 lb) SpO2 98% BMI 35.65 kg/m? General Appearance: well appearing, in no acute distress, alert Pysch: mood and affect flat and restricted Skin: Skin color, texture, turgor normal for age; Head: normocephalic, atraumatic Eyes: PERRLA, EOM's intact, conjunctiva pink and moist, no icterus, sclera white, non-injected, Lungs: Lungs clear to auscultation. No wheezing, rhonchi, rales Heart: RRR without murmur, gallop, or rubs. No ectopy Bilateral Lower Extremities: no edema Neurological: Gait normal. Reflexes normal and symmetric. Sensation grossly intact., Negative findings: R handed., speech normal, mental status intact, cranial nerves 2-12 intact, muscle tone normal, rapid alternating movements normal, finger to nose normal, sensation to light touch and pinprick normal, Positive findings: left facial droop and nystagmus noted- mild, muscular weakness left upper and lower extremity. DTAP,TDAP,TD(1 - Tdap) due on 1981 HEPATITIS C SCREENING due on 2006 LIPID SCREEN due on 04/09/2010 FECAL OCCULT BLOOD due on 02/28/2012 MAMMOGRAM due on 12/12/2016 INFLUENZA(1) due on 10/26/2017 DIABETES SCREEN due on 06/23/2019 ASSESSMENT/PLAN: 1. Ischemic stroke of frontal lobe (HCC) - ICD9: 434.91, ICD10: I63.9 (primary diagnosis) - Recovering as anticipated - Continue Lipitor and Coumadin, may eventually discontinue coumadin pending anticoagulation follow up - CONSULT TO CARDIOLOGY - CONSULT SPEECH THERAPY - CONSULT TO PHYSICAL THERAPY - CONSULT TO WATCH ASSEMBLY INSTRUCTOR - Follow up in 1 month - FMLA paperwork to be filled out as patient will need outpatient therapy and should not drive at this time 2. Left-sided weakness - ICD9: 728.87, ICD10: R53.1 - Assessment and plan as above - CONSULT TO PHYSICAL THERAPY - CONSULT TO WATCH ASSEMBLY INSTRUCTOR 3. Factor 5 Leiden mutation, heterozygous (HCC) - ICD9: 289.81, ICD10: D68.51 - On Lovenox bridging to Coumadin, INR 1.4 today - Increase coumadin to 10mg today and tomorrow, then resume 5 mg daily. Concerned patient will not be therapeutic before she completes Lovenox therapy - Check INR in 5 days - Pending hematology consult and anticoag panel in 12 weeks, patient may eventually transition to only daily ASA - CONSULT TO HEMATOLOGY - Follow up in 1 month with PCP as scheduled. 4. Autoimmune disorder (HCC) - ICD9: 279.49, ICD10: D89.89 - JAMES, Centromere B AB and KARLEY IgM all positive during [facility] admisison - CONSULT TO RHEUM/IMMUN DISEASE - CONSULT TO CARDIOLOGY Berhane Luke APRN.HATCH TENDER Prescription instructions reviewed with patient as applicable. Potential red flag symptoms discussed with the patient. Reviewed appropriate action plan to take if red flag symptoms occur. Patient agreeable to treatment plan. Referring Provider: SELF [[id number]] Allergies As of Date: 10/04/2017 Noted Allergy Reaction OPIOIDS - MORPHINE ANALOGUES 08/29/2000 Comments: vicodin PENTAZOCINE 08/29/2000 Comments: talwin PROPOXYPHENE 08/29/2000 Comments: darvacet steri strips and paper tape [Othe*12/30/2006 TALACEN (PENTAZOCINE-ACETAMINOPHE*08/20/2005 1 - Mental Status Change Date Reviewed: 10/04/2017 Reviewed by: Alejandra Adams Ma - Fully Assessed Reason for Visit: Recheck [92] Cmt: Hosp follow up, CVA.Patient statess having a lot of heartburn and headaches Reason For Visit History Recorded Primary Visit Diagnosis:Ischemic stroke of frontal lobe (HCC) [I63.9] Other Visit Diagnoses:Left-sided weakness [R53.1] Factor 5 Leiden mutation, heterozygous (HCC) [D68.51] Autoimmune disorder (HCC) [D89.89] Order(s):INR (POC) [5899390] Order #: [id number]. #:[id number] famotidine (PEPCID AC) 20 mg tabletTake 1 tablet by mouth twice daily.Disp: 60 tabletRfl: 2 CONSULT TO RHEUM/IMMUN DISEASE [7274] Order #: [id number]: 1 CONSULT TO HEMATOLOGY [6873] Order #: [id number]: 1 CONSULT TO CARDIOLOGY [9833] Order #: [id number]: 1 CONSULT SPEECH THERAPY [2850594] Order #: [id number]: 1 CONSULT TO PHYSICAL THERAPY [9516] Order #: [id number]: 1 CONSULT TO WATCH ASSEMBLY INSTRUCTOR [201601] Order #: [id number]: 1 Prescriptions as of 10/04/2017 Sig: FAMOTIDINE 20 MG TABLET Take 1 tablet by mouth twice * ASPIRIN-CALCIUM CARBONATE 81 * Take 81 mg by mouth. ATORVASTATIN 40 MG TABLET Take 40 mg by mouth. WARFARIN 5 MG TABLET Take 5 mg by mouth. ENOXAPARIN 300 MG/3 ML SUBCUT* 100 mg by SUBDERMAL route. CYCLOBENZAPRINE 10 MG TABLET Take 1 tablet by mouth three * CELECOXIB 200 MG CAPSULE Take 1 capsule by mouth as ne* ALPRAZOLAM 1 MG TABLET Take 1 tablet by mouth at bed* METHADONE 10 MG TABLET Take three tablets , three ti* OXYCODONE-ACETAMINOPHEN 5 MG-* Take 1 tablet by mouth every * Problem List As Of Date 10/04/2017 Noted Resolved Reflex sympathetic dystrophy of lower limb [G90*INVALID FOR* NEURALGIA/NEURITIS NOS [LXR6605] INVALID FOR* MONONEURITIS LEG NOS [G57.90] INVALID FOR* DYSTHYMIC DISORDER [F34.1] More... ACUTE CHOLECYSTITIS [K81.0] INVALID FOR* Obesity [E66.9] INVALID FOR* De Quervain's tenosynovitis, left [M65.4] INVALID FOR* CMC arthritis [M19.049] INVALID FOR* Thumb pain [M79.646] INVALID FOR* Ischemic stroke of frontal lobe (HCC) [I63.9] INVALID FOR* Prescriptions ordered this encounter Disp Refills Start End FAMOTIDINE 20 MG TABLET 60 t* 2 10/04/2017 Route: ORAL Sig: Take 1 tablet by mouth twice daily. Encounter Status:Closed by MARLY GARCIA BERHANE on 10/07/17 DISCHARGE SUMMARY Observed: 10/02/2017 Status: F Source: [place] 8:06 PM [facility] REPOSITORY [facility] Medical Records Department [address] [place] [address] Discharge Summary 10/02/171953 MR#: [id number] Acct: [id number] Name: STEPHANIE MOORE Rep #: [id number] : 1960 57 From: Petar Villalta DO PCP: Anuj Hanson MD Status: DIS IN Y Location: [place] [address] Discharge Date and Diagnosis Date of Admission: 09/19/17 Date of Discharge: 09/30/17 - Primary Discharge Diagnosis #1 acute/subacute right MCA infarction #2 hyperglycemia #3 reflex sympathetic dystrophy #4 anxiety disorder #5 chronic low back pain - Secondary Discharge Diagnosis Chronic Problems Chronic back pain (Chronic) Anxiety (Chronic) Reflex sympathetic dystrophy (Chronic) Hospital Course and Treatment Operations: None Procedures: 2-D Echocardiogram Summary of Care Provided: The patient is a 57 year old F seen in the emergency room at [facility] with chief complaint of headache and weakness over the past week. Workup included a negative troponin, negative chest x-ray, white blood cell count was elevated at 13.2, EKG showed normal sinus rhythm at 71. CT of the head was obtained which showed no acute hemorrhage but there was an abnormal area of attenuation in the right frontal lobe concerning for an acute or subacute infarct. Patient was unable to get an MRI initially due to a history of a spinal cord stimulator, this was removed in 2004. Patient was admitted to PCU, she was placed on aspirin and a statin, she was seen by neurology, underwent an echocardiogram, she was seen by PT and OT as well as speech therapy. It was noted that the patient could undergo an MRI and she underwent an MRI of the brain which showed an acute ischemic infarction in the right frontal parietal region with mild subacute hemorrhage transformation or lamellar necrosis. It was planned that the patient would have a LEOPOLDO performed however there was equipment malfunction and a LEOPOLDO could not be carried out, patient stayed here several days in the hopes that she could obtain a LEOPOLDO here but on 09/30/17 it became obvious that we could not guarantee a LEOPOLDO could be performed here in an expedited manner. It was then felt the most prudent course of action would be to transfer the patient to a tertiary center where she could obtain a LEOPOLDO. On 09/30/17, patient was seen and examined felt to be in stable condition for transfer to [facility] for further senior care Medications: Medications to take at Discharge ALPRAZolam [Xanax] 1 mg PO QHS 09/19/17 Celecoxib [Celebrex] 200 mg PO QHS 09/19/17 Methadone HCl [(None)] 10 mg PO Q8H 09/19/17 Oxycodone HCl/Acetaminophen [Percocet 5/325] 1 tablet PO TID PRN PRN 09/19/17 Primary Care Physician: Anuj Hanson MD [Primary Care Provider] - Disposition: Acute care Hospital Minutes spent on discharge:: 35 Patient Condition:: Stable Medical Necessity - Tobacco Use Smoking Status: Former smoker Tobacco Use: Cigarettes Meaningful Use Info Meaningful Use Diagnoses (Choose all that apply): Ischemic CVA - CVA Therapy Assessed for PT,OT and/or ST?: Yes - Ischemic Stroke Antithrombotic order at d/c?: Yes Dx of Atrial fib/flutter?: No Anticoagulant at discharge?: No Reason anticoagulant not ordered: Treatment not Indicated Statins at discharge?: Yes Primary Dx Acute Ischemic CVA?: Yes IV tPA ordered during stay?: No Reason IV t-PA not ordered: Treatment not Indicated Code Visit Inpatient E AND M: 28409 Disch Hosp 10/02/172005 <Electronically signed by Petar Villalta DO> Date Petar Villalta DO Cosigner Signature (if applicable): Date CC: Anuj Hanson MD; Petar Tereletsky DO Signed ECHO 2D/3D LEOPOLDO W/WO Observed: 10/01/2017 Status: F Source: ExoYou CONTRAST 10:52 AM SYSTEM REPOSITORY Patient Name: STEPHANIE MOORE Ultrasound Exam Date/Time 10/01/2017 11:45:37 EDT Exam Echo 2D/3D LEOPOLDO w/wo Contrast Ordering Physician JOSE COSTA MICHELE L Accession Number [id number] Reason For Exam Ischemic frontal lobe stroke 09/19 Report TRANSESOPHAGEAL ECHOCARDIOGRAM PATIENT: Stephanie Moore STUDY DATE: 10/01/2017 : 1960 AGE: 57 HT/WT: 167.6 cm (66 95.9 kg (211 in) lb) GENDER: F BP: 141 / 76 LOCATION: LXSN PATIENT Inpatient [facility] STATUS: *ORDERING PHYSICIAN: * *FELLOW: * Taylor Ward Michele *RN: * Keyla Amezcua, CLAYTON *READING PHYSICIAN: * Silvio *KEG VARNISHER: * Diana Brown MD RDMS,AB,RDCS,AE, PE, RVT,VT --- INDICATIONS: ISCHEMIC FRONTAL LOB STROKE. --- CONCLUSIONS SUMMARY: 1. Left ventricle: The cavity size is normal. Wall thickness is normal. The estimated ejection fraction is 55%. 2. Right ventricle: The cavity size is normal. Systolic function is normal. 3. Left atrium: No evidence of thrombus in the atrial cavity or appendage. No spontaneous echo contrast is observed. The appendage is of normal size. Emptying velocity is normal. 4. Atrial septum: Borderline aneurysmal interatrial septum with possible small patent foramen ovale by color Doppler. No interatrial shunt was observed by Bubble study. 5. Descending aorta: The descending aorta has minor luminal irregularities. 6. No significant valvular abnormalities. --- STUDY DATA: Transesophageal echocardiography was performed. Procedure: Initial setup. Surface ECG leads, blood pressure measurements, and pulse oximetric signals were monitored. Image quality was adequateA transesophageal probe was inserted by the attending cardiologistwithout difficulty. Complete 2D, complete spectral Doppler, and color flow Doppler images were acquired and archived for permanent storage and are available for subsequent review. Study status: Routine. Patient status: Inpatient. Location: LEOPOLDO laboratory. Consent: The risks, benefits, and alternatives to the procedure were explained to the patient and informed consent was obtained. Administered medications: Propofol. Bubble study performed. --- FINDINGS LEFT VENTRICLE: The cavity size is normal. Wall thickness is normal. The estimated ejection fraction is 55%. RIGHT VENTRICLE: The cavity size is normal. Systolic function is normal. LEFT ATRIUM: The atrium is normal in size. No evidence of thrombus in the atrial cavity or appendage. No spontaneous echo contrast is observed. The appendage is of normal size. Emptying velocity is normal. RIGHT ATRIUM: The atrium is normal in size. ATRIAL SEPTUM: Borderline aneurysmal interatrial septum with possible small patent foramen ovale by color Doppler. No interatrial shunt was observed by Bubble study. There is no evidence of right to left shunting with injection of agitated saline contrast. There is redundancy of the septum, with borderline criteria for aneurysm. MITRAL VALVE: Structurally normal valve. Doppler: There is trivial, less than 1+ regurgitation. AORTIC VALVE: Structurally normal valve. Trileaflet. Doppler: There is no stenosis. There is no regurgitation. TRICUSPID VALVE: Structurally normal valve. Doppler: There is trivial, less than 1+ regurgitation. PULMONIC VALVE: Structurally normal valve. Doppler: There is trivial, less than 1+ regurgitation. AORTA: The aorta is well visualized and mildly diseased. Descending aorta: The descending aorta has minor luminal irregularities. PULMONARY ARTERY: The main pulmonary artery is normal in size. PERICARDIUM: There is no pericardial effusion. PULMONARY VEINS: Left upper pulmonary vein: Normal sized. The Doppler velocity and flow profile are normal. Electronically signed by Silvio Brown MD 10/01/2017 13:10 Final Dictated: 10/01/2017 1:11 pm Dictating Physician: SILVIO BROWN Signed Date and Time: 10/01/2017 1:11 pm Signed by: SILVIO BROWN APTT Collected: 10/01/2017 Status: F Source: [facility] 12:45 AM SYSTEM REPOSITORY TYPE CODE TESTS RESULT OUT OF RANGE REFERENCE UNITS LAB PTTA 20.0-30.5 s Normal APTT 27.6 Result Comment: NOTE: The therapeutic time for Heparin anticoagulation, based on Xa activity inhibition, is an APTT of 46-80 seconds. Performed By: #### BMP3M, APTT, PT #### [facility] [address] [place] [id number] PROTHROMBIN TIME Collected: 10/01/2017 Status: F Source: [facility] 12:45 AM SYSTEM REPOSITORY TYPE CODE TESTS RESULT OUT OF REFERENCE UNITS RANGE LAB PROTM 9.0-12.0 s Prothrombin Normal Time 9.8 Result Comment: . LAB INR 0.9-1.1 NA Normal INR 0.9 Result Comment: Recommended Anticoagulant Therapy: SEE BELOW ----- INR of 2.0 - 3.0 : - Prophylaxis of Venous Thrombosis (high-risk surgery) - Treatment of Venous Thrombosis - Treatment of Pulmonary Embolism (Includes tissue heart valves, Acute Myocardial Infarction to prevent systemic embolism, Valvular Heart Disease, and Atrial Fibrillation) ----- INR of 2.5 - 3.5 : - Mechanical Prosthetic Valves (high risk) - If oral anticoagulant therapy is used to prevent Myocardial Infarction Performed By: #### BMP3M, APTT, PT #### [facility] [address] [place] [phone] BASIC METABOLIC PANEL Collected: 10/01/2017 Status: F Source: [facility]You 12:44 AM SYSTEM REPOSITORY TYPE CODE TESTS RESULT OUT OF RANGE REFERENCE UNITS LAB NA3 137-145 mmol/L Sodium Normal 137 LAB K3 3.5-5.1 mmol/L Normal Potassium 4.2 LAB CL3 98-107 mmol/L Chloride Normal 104 LAB CO23 22-30 mmol/L Carbon Normal Dioxide 26 LAB ANIN3 NA Anion Gap 7 LAB GLUC3 70-100 mg/dL Glucose Normal 94 LAB BUN3 7-20 mg/dL Urea Normal Nitrogen 16 LAB CRET3 0.52-1.25 mg/dL Normal Creatinine 0.61 LAB GF3BR >60 mL/min eGFR > 60.0 LAB GF3WR >60 mL/min eGFR OTHER > 60.0 Result Comment: Source- MDRD equation with creatinine calibration to IDMS(NKDEP) eGFR not recommended for drug dose adjustment LAB CA3 8.4-10.4 mg/dL Normal Calcium 8.4 Performed By: #### BMP3M, APTT, PT #### [facility] [address] [place] [phone] 12 LEAD ELECTROCARDIOGRAM Observed: 09/24/2017 Status: F Source: [place] 2:44 PM [facility] REPOSITORY [facility] Cardiovascular Services [address] [place] [address] 12 Lead EKG 09/19/17 1010 MR#: [id number] Acct: [id number] Name: STEPHANIE MOORE Rep #: [id number] : 1960 57 From: Jose Lopez MD Attending Dr: Chata Phipps Status: ADM IN Ordering Dr: Satish Jj MD Date: 09/19/17 Location: U Sex: F C Admitted: 09/19/17 Test Reason : DYSRHYTHMIA Blood Pressure : / mmHG Vent. Rate : 071 BPM Atrial Rate : 071 BPM P-R Int : 144 ms QRS Dur : 086 ms QT Int : 394 ms P-R-T Axes : 049 051 073 degrees QTc Int : 428 ms Normal sinus rhythm Normal ECG Confirmed by ANTONIO BRENNAN, JOSE ([id number]), continuity editor GRACE WALTERS ([id number]) on 09/24/2017 2:44:13 PM Referred By: KAVITA Confirmed By:JOSE LOPEZ MD 09/24/17 1444 Date Jose Lopez MD CC: Anuj Hanson MD; Chata Phipps; Satish Jj MD Signed PROTEIN C, FUNCTIONAL Collected: 09/24/2017 Status: F Source: [place] 9:00 AM [facility] REPOSITORY TYPE CODE TESTS RESULT OUT OF RANGE REFERENCE UNITS LAB L3100.7325 73-180 % Normal PROT C, 137 Funct Result Comment: Performed at: - [facility] [id number] Metal Building Assembler: Jeremi Momin MD, Phone: [phone] Performed at: - [facility] [address] [place], [place] [id number] Metal Building Assembler: Nikita Arauz MD, Phone: [phone] Performed By: #### L3100.7325, L3300.0450, L3410.1999, L4500.1999 #### [facility] (refer to report for specific site) refer to report for address and phone number AT [facility] / Collected: 09/24/2017 Status: F Source: [place] IMMUNOL 9:00 AM [facility] REPOSITORY TYPE CODE TESTS RESULT OUT OF RANGE REFERENCE UNITS LAB L3300.0500 75-135 % Normal AT3 FUNCTION 99 Result Comment: Direct Xa inhibitor anticoagulants such as rivaroxaban, apixaban and edoxaban will lead to spuriously elevated antithrombin activity levels possibly masking a deficiency. LAB L3300.0540 72-124 % Normal AT3 AG, IMMUNOL 94 Result Comment: This test was developed and its performance characteristics determined by [employer]. It has not been cleared or approved by the Food and Drug Administration. Performed By: #### L3100.7325, L3300.0450, L3410.1999, L4500 #### [facility] (refer to report for specific site) refer to report for address and phone number BETA-2 GLYCOPROT IGG, Collected: 09/24/2017 Status: F Source: Ria VASQUEZ 9:00 AM [facility] REPOSITORY TYPE CODE TESTS RESULT OUT OF RANGE REFERENCE UNITS LAB L3410.2100 0-20 Normal B2 GLYCO <9 I IGG Result Comment: Result Units: GPI IgG units The reference interval reflects a 3SD or 99th percentile interval, which is thought to represent a potentially clinically significant result in accordance with the International Consensus Statement on the classification criteria for definitive antiphospholipid syndrome (APS). J Thromb Haem 2006;4:295-306. LAB L3410.2200 0-25 Normal B2 GLYCO I IGA <9 Result Comment: Result Units: GPI IgA units The reference interval reflects a 3SD or 99th percentile interval, which is thought to represent a potentially clinically significant result in accordance with the International Consensus Statement on the classification criteria for definitive antiphospholipid syndrome (APS). J Thromb Haem 2006;4:295-306. LAB L3410.2300 0-32 Normal B2 GLYCO I IGM <9 Result Comment: Result Units: GPI IgM units The reference interval reflects a 3SD or 99th percentile interval, which is thought to represent a potentially clinically significant result in accordance with the International Consensus Statement on the classification criteria for definitive antiphospholipid syndrome (APS). J Thromb Haem 2006;4:295-306. Performed By: #### L3100.7325, L3300.0450, L3410.1999, L4500 #### [facility] (refer to report for specific site) refer to report for address and phone number FACTOR II, DNA Collected: 09/24/2017 Status: F Source: [place] ROSALIA 9:00 AM [facility] REPOSITORY TYPE CODE TESTS RESULT OUT OF RANGE REFERENCE UNITS LAB L4500.2100 . Normal FACTOR Comment II,DNA Result Comment: NEGATIVE No mutation identified. Comment: A point mutation ([id number]) in the factor II (prothrombin) gene is the second most common cause of inherited thrombophilia. The incidence of this mutation in the [place] population is about 2% and in the population it is approximately 0.5%. This mutation is rare in the and population. Being heterozygous for a prothrombin mutation increases the risk for developing venous thrombosis about 2 to 3 times above the general population risk. Being homozygous for the prothrombin gene mutation increases the relative risk for venous thrombosis further, although it is not yet known how much further the risk is increased. In women heterozygous for the prothrombin gene mutation, the use of estrogen containing oral contraceptives increases the relative risk of venous thrombosis about 16 times and the risk of developing cerebral thrombosis is also significantly increased. In the prothrombin gene mutation increases risk for venous thrombosis and may increase risk for stillbirth, placental abruption, pre-eclampsia and growth restriction. If the patient possesses two or more congenital or acquired thrombophilic risk factors, the risk for thrombosis may rise to more than the sum of the risk ratios for the individual mutations. This assay detects only the prothrombin [id number] mutation and does not measure genetic abnormalities elsewhere in the genome. Other thrombotic risk factors may be pursued through systematic clinical laboratory analysis. These factors include the R506Q ([place]) mutation in the Factor V gene, plasma homocysteine levels, as well as testing for deficiencies of antithrombin III, protein C and protein S. Genetic Counselors are available for health care providers to discuss results at [phone] ([phone]). Methodology: DNA analysis of the Factor II gene was performed by PCR amplification followed by restriction analysis. The diagnostic sensitivity is >99% for both. All the tests must be combined with clinical information for the most accurate interpretation. Molecular-based testing is highly accurate, but as in any laboratory test, diagnostic errors may occur. This test was developed and its performance characteristics determined by [facility]. It has not been cleared or approved by the Food and Drug Administration. Poort SR, et al. Blood. 1996; 88:9704-1278. Rebekah BIRCH. Circulation. 2004; 110:e15-e18. Daria I, et al. Arterioscler Thromb Vasc Biol. 1999; 19:700-703. Ranjana Flannery, PhD, [facility] Sydnie Horton, PhD, [facility] Grace Holliday MMiloS., PhD, [facility] Carissa Marie, PhD, FAC Karmen Delgadillo, PhD, [facility] Montrell Lee, PhD, FAC Performed By: #### L3100.7325, L3300.0450, L3410.1999, L4500.1999 #### [facility] (refer to report for specific site) refer to report for address and phone number BRAIN WITHOUT Observed: 09/23/2017 Status: F Source: [place] CONTRAST 11:49 AM [facility] REPOSITORY [facility] Imaging Services [address] [place] [address] Brain without Contrast MR#: [id number] Acct: [id number] Name: STEPHANIE MOORE Rep #: [id number] : 1960 F 57 From: Sherman Larsen MD PCP: Anuj Hanson MD Status: ADM IN Study: Brain without Contrast Date of Exam: 09/23/17 Exam# [id number] Ordering Dr: Chata Phipps MD STUDY: MRI BRAIN WITHOUT CONTRAST REASON FOR EXAM: Female, 57 years old. Left-sided weakness TECHNIQUE: Standardized multiplanar fat and water weighted pulse sequences were obtained. COMPARISON: CT of the brain on September 19, 2017 FINDINGS: Normal size of the ventricles and extra-axial spaces for the patient's age. Mild chronic periventricular white matter ischemic changes. Focal gliosis in the right frontal parietal region demonstrating restricted diffusion consistent with acute infarction in the distribution of the right middle cerebral artery. There is serpiginous increased signal intensity at the site of the infarct consistent with subacute hemorrhagic transformation or lamellar necrosis Normal bilateral basal ganglia. Normal thalami. There is no extra-axial fluid accumulation. Normal flow voids within the major intracranial circulation suggesting patency by spin echo criteria. Normal sella turcica, pituitary gland, infundibular stalk, optic chiasm and hypothalamus. Normal tectal plate and pineal gland. Normal midbrain, erick and medulla. Normal cerebellum. Normal basal cisterns. Normal bilateral temporal bones. Normal bilateral internal auditory canals. No demonstrated orbital abnormality, within the constraints of a routine brain study. Normal visualized paranasal sinuses. Normal calvarium and skull base. Normal visualized soft tissue structures. Normal visualized upper cervical spine. MRI/Brain without Contrast IMPRESSION: Acute ischemic infarction in the right frontal parietal region with mild subacute hemorrhagic transformation or lamellar necrosis N.B. : The above information has been verbally conveyed by Sherman Larsen MD to , Covering Physician, on 09/23/2017 16:12:40 (ET). 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 CONSULTATION Observed: 09/23/2017 Status: F Source: [place] 7:43 AM [facility] REPOSITORY [facility] Medical Records Department [address] [place] [address] Consultation 09/20/17 1104 MR#: [id number] Acct: [id number] Name: STEPHANIE MOORE Rep #: [id number] : 1960 57 From: Otis Boucher MD PCP: Anuj Hanson MD Status: ADM IN Location: [place] [id number] Reason for Consult Date of Consultation: 09/20/17 Reason for Consultation: cva History of Present Illness: The patient is a 57 year old right handed white female noted abnormal driving about one week ago, and family noted abnormal language. pt also noted left arm weakness, came to ed and ct showed likely right frontal infarct. remote tobacco use, no hypertension. no sleep studies, occasional snoring. 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 reports stress due to work. doesnt take asa or blood thinners or plavix at home. no hrt at home. Past Medical History Past Medical History (Chronic Problems): Chronic Problems Chronic back pain (Chronic) Anxiety (Chronic) Reflex sympathetic dystrophy (Chronic) Allergies acetaminophen [From Darvocet-N] Adverse Reaction (Verified 09/19/17 09:40) Nausea hydrocodone [From Vicodin] Adverse Reaction (Verified 09/19/17 09:40) Other pentazocine [From Talwin] Adverse Reaction (Verified 09/19/17 09:40) Other propoxyphene [From Darvocet-N] Adverse Reaction (Verified 09/19/17 09:40) Nausea Home Medications: Ambulatory Orders Medication Instructions Recorded ALPRAZolam [Xanax] 1 mg PO QHS 09/19/17 Surgical History: cholecystectomy, - - Spinal cord stimulator, status post removal, still have the connectors and wires. 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 Smoking Status: Former smoker Alcohol: None Drugs: None - *Family History Maternal History Items: Heart Disease, Hypertension, No pertinent history Review of Systems Constitutional: Denies: Chills, Fever, Weight Change HEENT: Denies: Head Aches, Sinus Congestion, Sinus Drainage Cardiovascular: Denies: Chest Pain, Palpitations Respiratory: Denies: Cough, Shortness of breath at rest, Sputum production Gastrointestinal: Denies: Abdominal Pain, Nausea, Vomiting Genitourinary: Denies: Dysuria Musculoskeletal: Denies: Joint Pain, Joint Tenderness Skin: Denies: Rash, Wounds Neurological: Denies: Numbness, Tingling, Focal weakness Psychiatric: Denies: Anxiety, Depression, Homicidal Ideations, Suicidal Ideations Hematologic/ Lymphatic: Denies: Easy Bruising, Easy Bleeding Patient Problems: Active and Suspected Problems Hyperglycemia (Acute) Acute ischemic stroke (Acute) - Physical Exam Vital Signs Temp Pulse Resp BP Pulse Ox 36.7 C 61 18 130/80 H 99 09/20/17 08:55 09/20/17 08:55 09/20/17 08:55 09/20/17 08:55 09/20/17 08:55 Oxygen Delivery Method Room Air Weight: 96.4 kg Body Mass Index (BMI) 35.4 Intake and Output for Last 24 Hours Intake Total 840 / 840 240 / 240 Balance 840 / 840 240 / 240 Laboratory Tests Past 24 Hrs WBC 8.7 RBC 3.89 L Hgb 11.7 L Hct 36.1 L MCV 92.8 MCH 30.1 MCHC 32.4 RDW 13.1 RDW Differential 43.4 POC Glucose POC Glucose 90 112 H 119 H Current Home Med List Medication Instructions Recorded Confirmed Type ALPRAZolam [Xanax] 1 mg PO QHS 09/19/17 09/19/17 History Celecoxib [Celebrex] 200 mg PO QHS 09/19/17 09/19/17 History Current Medications Generic Name Dose Route Start Last Admin Trade Name Freq PRN Reason Stop Dose Admin Laboratory Tests WBC 13.2 H RBC 4.32 Hgb 12.8 Hct 39.2 MCV 90.7 MCH 29.6 MCHC 32.7 RDW 13.0 RDW Differential 43.2 WBC RBC Hgb Hct MCV MCH MCHC RDW RDW Differential Plt Count MPV Immature Gran % (Auto) Neut % (Auto) WBC 8.7 RBC 3.89 L Hgb 11.7 L Hct 36.1 L WBC RBC Hgb Hct MCV MCH MCHC RDW RDW Differential echo normal, no shunt Assessment/Plan All Active Problems Hyperglycemia (Acute) Acute ischemic stroke (Acute) right frontal infarct, no apparent risk factors, history of one dvt, no family history of cva pt/ot/speech asa/statin/ aggressive bp control ssri if needed tele ? rehab MRI: had spinal cord stimulator placed in at [facility], removed in . will verify mri compatibility I reviewed the CTA of her head and neck, and I do not think there is any significant stenosis anywhere. 09/23/17 0743 <Electronically signed by Otis Boucher MD> Date Otis Boucher MD Cosigner Signature (if applicable): Date CC: Anuj Hanson MD; Otis Boucher MD Signed MR-BRAIN WITHOUT Observed: 09/23/2017 Status: F Source: [place] CONTRAST IMPORT 12:00 AM [facility] REPOSITORY Images were obtained outside of [facility] [id number] MR-BRAIN WITHOUT Observed: 09/23/2017 Status: F Source: [place] CONTRAST IMPORT 12:00 AM [facility] REPOSITORY Images were obtained outside of [facility] [id number] CAROTID DUPLEX Observed: 09/21/2017 Status: F Source: [place] ULTRASOUND 2:55 PM [facility] REPOSITORY [facility] Cardiovascular Services [address] [place], [place] [address] [address] Carotid Duplex Ultrasound 09/19/17 1504 MR#: [id number] Acct: [id number] Name: STEPHANIE MOORE Rep #: [id number] : 1960 57 From: Manny Shin MD Attending Dr: Chata Phipps Status: ADM IN Ordering Dr: Chata Phipps MD Date: 09/19/17 Location: [facility] Sex: F C Admitted: 09/19/17 Reason For Study: CVA Rt. Velocities/BP Lt. Velocities/BP Prox CCA 89.1/13.5 cm/sec. Prox CCA 98.5/24.6 cm/sec. Mid CCA 69.2/15.8 cm/sec. Mid CCA 68.6/18.2 cm/sec. Dist CCA 73.9/17.6 cm/sec. Dist CCA 78.6/22.3 cm/sec. Prox ICA 51.0/11.1 cm/sec. Prox ICA 70.7/25.9 cm/sec. Mid ICA 36.9/19.3 cm/sec. Mid ICA 71.8/23.8 cm/sec. Dist ICA 48.7/22.3 cm/sec. Dist ICA 77.5/24.3 cm/sec. Rt. ICA/CCA = .7. Lt. ICA/CCA = 1.1. Prox ECA 108/19.6 cm/sec. Prox ECA 123/15.7 cm/sec. Rt. Vert. 61.0/22.9 cm/sec. Lt. Vert. 37.5/14.7 cm/sec. Right Extracranial There is intimal thickening but no significant atherosclerotic plaque noted in the right common carotid artery. There is intimal thickening but no significant atherosclerotic plaque noted in the right internal carotid artery. There is heterogeneous, irregular atherosclerotic plaque noted in the right external carotid artery. Antegrade flow is noted in the right vertebral artery. Left Extracranial There is intimal thickening but no significant atherosclerotic plaque noted in the left common carotid artery. There is intimal thickening but no significant atherosclerotic plaque noted in the left internal carotid artery. There is intimal thickening but no significant atherosclerotic plaque noted in the left external carotid artery. Antegrade flow is noted in the left vertebral artery. Procedure Carotid Duplex 44106. The exam was diagnostic. Exam performed portable in patient room. Interpretation Summary No significant atherosclerotic plaque or stenosis noted in the internal carotid arteries bilaterally. Flow within the vertebral arteries is antegrade bilaterally. 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 ABDOMEN SINGLE VIEW Observed: 09/21/2017 Status: F Source: [place] 12:07 PM [facility] REPOSITORY [facility] Imaging Services [address] [place] [id number] Abdomen Single View MR#: [id number] Acct: [id number] Name: STEPHANIE MOORE Rep #: [id number] : 1960 F 57 From: Sylwia Menjivar MD PCP: Anuj Hanson MD Status: ADM IN Study: Abdomen Single View Date of Exam: 09/21/17 Exam# [id number] Ordering Dr: Chata Phipps MD ADDENDUM by Dwayne Ibarra MD on 09/23/17 at 1129 RAD/Abdomen Single View 09/23/17 1136 Date cc: Anuj Hanson MD; Chata Phipps * Signed ADDENDUM by Dwayne Ibarra MD on 09/23/17 at 1129 ADDENDUM The neurostimulator is a [employer] Senergy Model 7427. [employer] was contacted and gave permission to perform an MRI of the brain with a 1.5 Emilia magnet. The patient is cleared for her MRI of the brain. Electronically Signed: Dwayne Ibarra MD at 11:29 EDT , Service support , 09/23/17 1129 Date cc: Anuj Hanson MD; Chata Phipps * Signed ADDENDUM by SYLWIA MENJIVAR MD on 09/21/17 at 1321 RAD/Abdomen Single View 09/22/17 1250 Date cc: Anuj Hanson MD; Chata Phipps * Signed ADDENDUM by SYLWIA MENJIVAR MD on 09/21/17 at 1321 ADDENDUM Due to the presence of a neurostimulator wire, MRI examination cannot be performed unless the exact brand is known from the relays draftsperson. Electronically Signed: Sylwia Menjivar MD at 13:21 EDT Tel , Service support , 09/21/17 1321 Date cc: Anuj Hanson MD; Chata Phipps * Signed STUDY: X-RAY - ABDOMEN/PELVIS REASON FOR EXAM: Female, 57 years old. History of neurostimulator implant. Clearance for MRI of the brain. TECHNIQUE: AP and lateral views of the abdomen were obtained. COMPARISON: None. FINDINGS: There is a neurostimulator wire on the right side of the abdomen with the tip approaching the lateral aspect of L2-L3. There are nonspecific gaseous bowel loops. There is fecal retention. Normal soft tissue structures. There are mild degenerative changes in the spine. RAD/Abdomen Single View IMPRESSION: Neurostimulator wires on the right side of the abdomen as described above. 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 CR-ABDOMEN SINGLE VIEW Observed: 09/21/2017 Status: F Source: [place] 12:00 AM [facility] REPOSITORY Images were obtained outside of [facility] [id number] JAMES W/ REFLEX MULT Collected: 09/20/2017 Status: F Source: [place] 11:45 AM [facility] REPOSITORY TYPE CODE TESTS RESULT OUT OF RANGE REFERENCE UNITS LAB L3100.5475 Negative High Positive JAMES-DIRECT LAB L3100.5500 0-9 IU/mL 1 Normal dsDNA AB Result Comment: Negative <5 Equivocal 5 - 9 Positive >9 LAB L3100.9200 0.0-0.9 AI Anti-SS-A Normal < 0.2 LAB L3100.9300 0.0-0.9 AI Anti-SS-B Normal < 0.2 LAB L3410.0427 0.0-0.9 AI ANTICHROMATIN Normal 0.2 LAB L3410.0500 0.0-0.9 AI ANTI-ALICIA Normal <0.2 LAB L3410.0700 0.0-0.9 AI ANTISCLER Normal <0.2 LAB L3410.1200 0.0-0.9 AI PHARMACY ANCILLARY Ab Normal <0.2 LAB L3410.1300 0.0-0.9 AI SPARKS Ab Normal <0.2 LAB L3410.4010 0.0-0.9 AI ANTI-CENT B High >8.0 LAB L3410.4150 . COMMENT Normal Comment Result Comment: Autoantibody Disease Association Condition Frequency --------- Antinuclear Antibody, SLE, mixed connective Direct (JAMES-D) tissue diseases --------- dsDNA SLE 40 - 60% --------- Chromatin Drug induced SLE 90% SLE 48 - 97% --------- SSA (Ro) SLE 25 - 35% Sjogren's Syndrome 40 - 70% Lupus 100% --------- SSB (La) SLE 10% Sjogren's Syndrome 30% --------- Sm (anti-Sparks) SLE 15 - 30% --------- PHARMACY ANCILLARY Mixed Connective Tissue Disease 95% (U1 nRNP, SLE 30 - 50% anti-ribonucleoprotein) Polymyositis and/or Dermatomyositis 20% --------- Scl-70 (antiDNA Scleroderma (diffuse) 20 - 35% topoisomerase) Crest 13% --------- Alicia-1 Polymyositis and/or Dermatomyositis 20 - 40% --------- Centromere B Scleroderma - Crest variant 80% Performed at: - [facility] [address] [id number] Metal Building Assembler: Jeevan Maldonado PhD, Phone: [phone] Performed By: #### L3100.5450 #### [facility] (refer to report for specific site) refer to report for address and phone number PROTEIN S DEFIC. Collected: 09/20/2017 Status: F Source: [place] PRO[place] 11:45 AM [facility] REPOSITORY TYPE CODE TESTS RESULT OUT OF RANGE REFERENCE UNITS LAB L3100.7100 60-150 % Normal PROTEIN 99 S,TOTAL Result Comment: This test was developed and its performance characteristics determined by [facility]. It has not been cleared or approved by the Food and Drug Administration. LAB L3100.7200 57-157 % Normal PROTEIN S, FREE 115 Result Comment: This test was developed and its performance characteristics determined by [facility]. It has not been cleared or approved by the Food and Drug Administration. LAB L3100.7260 63-140 % Normal PROTEIN S, FUNC 79 Result Comment: Protein S activity may be falsely increased (masking an abnormal, low result) in patients receiving direct Xa inhibitor (e.g., rivaroxaban, apixaban, edoxaban) or a direct thrombin inhibitor (e.g., dabigatran) anticoagulant treatment due to assay interference by these drugs. Performed By: #### L3100.7075, L3100.7275, L3100.8410, L3300.0500, L4500.0100, L4500.5000 #### [facility] (refer to report for specific site) refer to report for address and phone number PROTEIN C DEFIC. Collected: 09/20/2017 Status: F Source: [facility] 11:45 AM [facility] REPOSITORY TYPE CODE TESTS RESULT OUT OF RANGE REFERENCE UNITS LAB L3100.7310 60-150 % Normal PROTEIN C 139 LAB L3100.7335 73-180 % Normal PROT C,FUNC 144 Performed By: #### L3100.7075, L3100.7275, L3100.8410, L3300.0500, L4500.0100, L4500.5000 #### [facility] (refer to report for specific site) refer to report for address and phone number ANTICARDIOLIPIN IGG, IGM Collected: 09/20/2017 Status: F Source: [place] 11:45 AM [facility] REPOSITORY TYPE CODE TESTS RESULT OUT OF RANGE REFERENCE UNITS LAB L3100.8420 0-14 GPL U/mL Normal ANTICARDIO IgG < 9 Result Comment: Negative: <15 Indeterminate: 15 - 20 Low-Med Positive: >20 - 80 High Positive: >80 LAB L3100.8425 0-12 MPL U/mL ANTICARDIO High IgM 21 Result Comment: Negative: <13 Indeterminate: 13 - 20 Low-Med Positive: >20 - 80 High Positive: >80 Performed By: #### L3100.7075, L3100.7275, L3100.8410, L3300.0500, L4500.0100, L4500.5000 #### [facility] (refer to report for specific site) refer to report for address and phone number ANTITHROMBIN 3 FUNCTION Collected: 09/20/2017 Status: F Source: [place] 11:45 AM [facility] REPOSITORY TYPE CODE TESTS RESULT OUT OF RANGE REFERENCE UNITS LAB L3300.0500 75-135 % Normal AT3 FUNCTION 104 Result Comment: Direct Xa inhibitor anticoagulants such as rivaroxaban, apixaban and edoxaban will lead to spuriously elevated antithrombin activity levels possibly masking a deficiency. Performed at: [facility] - [facility] [id number] Metal Building Assembler: Jeremi Momin MD, Phone: [phone] Performed at: - [facility] [id number] Metal Building Assembler: Jeevan Maldonado PhD, Phone: [phone] Performed at: - [facility] [id number] Metal Building Assembler: Nikita Arauz MD, Phone: [phone] Performed By: #### L3100.7075, L3100.7275, L3100.8410, L3300.0500, L4500.0100, L4500.5000 #### [facility] (refer to report for specific site) refer to report for address and phone number LUPUS ANTICOAGULANT COMP Collected: 09/20/2017 Status: F Source: [place] 11:45 AM [facility] REPOSITORY TYPE CODE TESTS RESULT OUT OF REFERENCE UNITS RANGE LAB L4500.0125 0.0-55.0 sec DILUTE PT (dPT) Normal 47.8 LAB L4500.0150 0.00-1.40 Ratio dPT Conf. Ratio Normal 1.00 LAB L4500.0200 0.0-23.0 sec THROMBIN TIME Normal 19.3 LAB L4500.0600 0.0-51.9 sec PTT-LA Normal 42.2 LAB L4500.1000 0.0-47.0 sec DRVVT Normal 41.4 LAB L4500.1300 . Interpretation Normal Comment: Result Comment: No lupus anticoagulant was detected. Performed By: #### L3100.7075, L3100.7275, L3100.8410, L3300.0500, L4500.0100, L4500.5000 #### [facility] (refer to report for specific site) refer to report for address and phone number FACT Roxanna LEIDEN Collected: 09/20/2017 Status: F Source: [place]UT[place] 11:45 AM [facility] REPOSITORY TYPE CODE TESTS RESULT OUT OF REFERENCE UNITS RANGE LAB L4500.5100 . High FACTOR V Comment LEIDEN Result Comment: RESULT: SINGLE R506Q MUTATION IDENTIFIED (HETEROZYGOTE) Factor V Leiden is a specific mutation (R506Q) in the factor V gene that is associated with an increased risk of venous thrombosis. Factor V Leiden is more resistant to inactivation by activated protein C. As a result, factor V persists in the circulation leading to a mild hypercoagulable state. Factor V Leiden has been reported in patients with deep vein thrombosis, pulmonary embolus, central retinal vein occulsion, cerebral sinus thrombosis, and hepatic vein thrombosis. The relative risk of venous thrombosis is increased approximately 4-8 fold in individuals who are heterozygous. About 3-8% of the general [place] and population are heterozygous. The risk of venous thrombosis increases exponentially in patients with more than one risk factor, including: age, surgery, oral contraceptive use, , elevated homocysteine levels, or a Factor II/prothrombin mutation (E91330V). Additionally, for individuals found to be heterozygous for the Factor V Leiden mutation, presence of a second mutation, Factor V R2, further increases the risk if venous thrombosis. Contact [employer] [facility] Customer Service at for further information on both the Factor II (Prothrombin) DNA Analysis, and Factor V R2 DNA Analysis tests. Genetic counselors are available for health care providers to discuss results at [phone] ([phone]). Methodology: DNA analysis of the Factor V gene was performed by allele- specific PCR. The diagnostic sensitivity and specificity is >99% for both. Molecular-based testing is highly accurate, but as in any laboratory test, diagnostic errors may occur. All test results must be combined with clinical information for the most accurate interpretation. This test was developed and its performance characteristics determined by [facility]. It has not been cleared or approved by the Food and Drug Administration. References: Laura Jay (1995). Clin Lab Med 16:169-186. Ranjana Flannery, PhD, FACMG Sydnie Horton, PhD, FACMG Liam RichardsS., PhD, FACMG Carissa Marie, PhD, FACMG Karmen Delgadillo, PhD, FAC Montrell Lee PhD, FAC Performed By: #### L3100.7075, L3100.7275, L3100.8410, L3300.0500, L4500.0100, L4500.5000 #### [facility] (refer to report for specific site) refer to report for address and phone number CBC W/DIFF, AUTOMATED Collected: 09/20/2017 Status: F Source: [place] 6:00 AM [facility] REPOSITORY TYPE CODE TESTS RESULT OUT OF RANGE REFERENCE UNITS LAB L100.1000 4.4-11.0 K/mm3 Normal WBC 8.7 LAB L100.1200 4.2-5.4 M/mm3 Low RBC 3.89 LAB L100.1300 12.0-15.0 g/dl Low HGB 11.7 LAB L100.1400 37-47 % Low HCT 36.1 LAB L100.1500 81-99 fL Normal MCV 92.8 LAB L100.1600 27.0-32.0 pg Normal MCH 30.1 LAB L100.1700 32-36 g/gl Normal MCHC 32.4 LAB L100.1810 11.6-14.6 % Normal RDW CV 13.1 LAB L100.1820 35.1-43.9 fl Normal RDW SD 43.4 LAB L100.1900 150-450 K/mm3 Normal PLT 225 LAB L100.2000 6.2-12.0 fl Normal MPV 10.1 LAB L100.2100 47-70 % Normal NEUT% 58.5 LAB L100.2200 19-41 % Normal LY% 34.1 LAB L100.2300 0-10 % Normal MONO% 5.0 LAB L100.2400 0-5 % Normal EO% 1.6 LAB L100.2500 0-1 % Normal BASO% 0.3 LAB L100.2550 0.0-0.9 % Normal IM GRAN % 0.500 Result Comment: IG% - Immature Granulocytes (promyelocytes, myelocytes and metamyelocytes) > 1% indicates that a LEFT SHIFT is Present. LAB L100.2620 2.0-7.7 X10 3/uL Normal Absolute Neut 5.1 LAB L100.2720 0.83-4.51 X10 3/ul Normal Absolute Lymph 2.96 Performed By: #### L100.0100 #### [facility] [address] [place], [address] LIPID PROFILE Collected: 09/20/2017 Status: F Source: [place] 6:00 AM [facility] REPOSITORY TYPE CODE TESTS RESULT OUT OF RANGE REFERENCE UNITS LAB L501.4900 200 mg/dL Normal CHOL 156 Result Comment: <200 mg/dL Desirable 200-240 mg/dL Borderline >240 mg/dL High Risk LAB L501.5000 mg/dL Normal TRIG 77 Result Comment: The drugs N-Acetylcysteine and Metamizole may falsely depress this assay. Serum Triglycerides Reference Interval Normal <150 mg/dL Borderline high 150 - 199 mg/dL High 200 - 499 mg/dL Very High > or = 500 mg/dL LAB L501.6400 mg/dL Normal HDL 61 Result Comment: The drugs N-Acetylcysteine and Metamizole may falsely depress this assay. Reference Range HDL <40 mg/dL Low HDL Cholesterol HDL >or= 60 mg/dL High HDL Cholesterol LAB L501.6500 0-130 mg/dL Normal LDL 80 LAB L501.6600 5-40 mg/dL Normal VLDL 15 Performed By: #### L500.4100 #### [facility] [address] [facility] [place], [address] BEDSIDE GLUCOSE Collected: 09/20/2017 Status: F Source: [place] 5:17 AM [facility] REPOSITORY TYPE CODE TESTS RESULT OUT OF RANGE REFERENCE UNITS LAB L501.080 70-110 mg/dL Normal BEDSIDE GLU 90 Result Comment: MANAGEMENT OF PATIENT CARE PER NURSING PROTOCOL Performed By: #### L501.080 #### [facility] Point of Care [address] [place] [address] CTA HEAD W/WO Observed: 09/20/2017 Status: F Source: [place] CONTR[place] 5:12 AM [facility] REPOSITORY [facility] Imaging Services [address] [place] [address] CTA Head W/WO Contrast MR#: [id number] Acct: [id number] Name: STEPHANIE MOORE Rep #: [id number] : 1960 F 57 From: Jeremi Callahan MD PCP: Anuj Hanson MD Status: ADM IN Study: CTA Head W/WO Contrast Date of Exam: 09/20/17 Exam# [id number] Ordering Dr: Montrell Haywood MD STUDY: CTA OF THE BRAIN REASON FOR EXAM: Female, 57 years old. CVA and increasing left arm weakness RADIATION DOSAGE (If Supplied By Facility): CTDIvol = ( 31.19 ) mGy, DLP = ( 1548.29 ) mGycm TECHNIQUE: CT angiography was performed with a multi-detector CT scanner. Data acquisition was obtained from the skull base through the vertex following intravenous administration of 100 ml of Isovue-370. MIP images were reconstructed from the axial data set. Post-processing of the angiographic images was performed, with multiplanar reformation and 3D reconstruction. Individualized dose optimization techniques were used for this CT. COMPARISON: Head CT 09/19/2017 FINDINGS: Normal bilateral petrous carotid arteries. A significant focal stenosis of the supraclinoid segment of the right internal carotid artery is noted with residual lumen diameter of 1 mm. Normal left cavernous carotid artery with a normal supraclinoid bifurcation. Normal right A1 segments of the anterior cerebral artery. Normal left A1 segments of the anterior cerebral artery. Normal intact anterior communicating artery (ACOM). Normal bilateral A2 segments of the anterior cerebral arteries. Normal right M1 and M2 segments of the middle cerebral arteries, with a normal M1 bifurcation. Normal left M1 and M2 segments of the middle cerebral arteries, with a normal M1 bifurcation. Normal right posterior communicating artery (PCOM). Normal left posterior communicating artery (PCOM). Normal bilateral vertebral arteries. Normal basilar artery with a normal basilar bifurcation. The visualized bilateral superior cerebellar (SCA) arteries are normal. Normal bilateral P1, P2 and visualized P3 segments of the posterior cerebral arteries. There is no demonstrated aneurysm of the [place] of [place]. CT/CTA Head W/WO Contrast IMPRESSION: A significant focal stenosis of the supraclinoid segment of the right internal carotid artery is noted with residual lumen diameter of 1 mm. No other significant intracranial arterial stenoses are detected. No arterial occlusions are seen. 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 CVA, increased left arm weakness RADIATION DOSAGE (If Supplied By Facility): CTDIvol = ( 31.19 ) mGy, DLP = ( 1548.29 ) mGycm TECHNIQUE: CT angiography with multi-detector data acquisition was performed from the aortic arch to the skull base following intravenous administration of 100ML ml of Isovue 370 contrast. MIP images were reconstructed from the axial data set. Post-processing of the angiographic images was performed, with multiplanar reformation and 3D reconstruction. Individualized dose optimization techniques were used for this CT. COMPARISON: None. FINDINGS: AORTIC ARCH: Normal visualized aortic arch. Normal origins of the brachiocephalic, left common carotid, and left subclavian arteries. RIGHT CAROTID ARTERIES: Normal right common carotid artery (CCA). Normal right common carotid bulb. Normal origin of the right internal carotid (ICA) artery without a hemodynamically significant stenosis. Normal visualized cervical portion of the right internal carotid artery. Normal origin of the right external carotid artery (ECA). LEFT CAROTID ARTERIES: Normal left common carotid artery (CCA). Normal left common carotid bulb. Normal origin of the left internal carotid (ICA) artery without a hemodynamically significant stenosis. Normal visualized cervical portion of the left internal carotid artery. Normal origin of the left external carotid artery (ECA). VERTEBRAL ARTERIES: Normal bilateral vertebral arteries. Pulmonary emphysema. CT/CTA Neck W/WO Contrast IMPRESSION: Normal bilateral cervical carotid and vertebral arteries. 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 BEDSIDE GLUCOSE Collected: 09/20/2017 Status: F Source: [place] 12:38 AM [facility] REPOSITORY TYPE CODE TESTS RESULT OUT OF REFERENCE UNITS RANGE LAB L501.080 70-110 mg/dL High BEDSIDE GLU 112 Result Comment: MANAGEMENT OF PATIENT CARE PER NURSING PROTOCOL Performed By: #### L501.080 #### [facility] [place] [address] CT-CTA NECK W/WO Observed: 09/20/2017 Status: F Source: [place] CONTR[place] 12:00 AM [facility] REPOSITORY Images were obtained outside of [facility] [id number] SR-CTA HEAD W/WO Observed: 09/20/2017 Status: F Source: [place] CONTR[place] 12:00 AM [facility] REPOSITORY Images were obtained outside of [facility] [id number] ECHOCARDIOGRAM COMPLETE Observed: 09/19/2017 Status: F Source: [place] 6:02 PM [facility] REPOSITORY [facility] Cardiovascular Services [address] [place] [address] Echo Complete 09/19/17 1507 MR#: [id number] Acct: [id number] Name: STEPHANIE MOORE Rep #: [id number] : 1960 57 From: Jose Lopez MD Attending Dr: Chata Phipps Status: ADM IN Ordering Dr: Chata Phipps MD Date: 09/19/17 Location: [facility] Sex: F C Admitted: 09/19/17 Reason For Study: TIA/CVA Procedure This was a 2D Doppler, Color Flow transthoracic echocardiogram. The exam was of fair technical quality due to body habitus. Exam performed portable in patient room. Left Ventricle Normal LV size. Apical false tendon noted. Left ventricular systolic function is normal. The estimated ejection fraction is 65 %. Normal diastology for age. No regional wall motion abnormalities noted. Right Ventricle Normal RV size. Normal systolic function. Atria Normal left atrium. Normal right atrium. No doppler evidence for ASD. Bubble contrast study negative for right to left interatrial shunt. Mitral Valve There is no mitral annular calcification. Normal mitral valve. Trivial mitral valve insufficiency. Tricuspid Valve Normal tricuspid valve. Trivial tricuspid valve insufficiency. Unable to estimate RV systolic pressure/pulmonary artery pressure due to technically difficult study. Aortic Valve Trisinus/trileaflet aortic valve. Normal aortic valve. Pulmonic Valve The pulmonic valve is not well visualized. Great Vessels Normal sized aortic root. Pericardium/Pleural No pericardial effusion. Medication Performed a rapid injection of agitated mix of 9 cc saline and 1cc air to assess for atrial septal defect. MMode/2D Measurements AND Calculations LVIDd: 4.7 cm IVSd: 0.90 cm Ao root diam: 3.0 cm LVIDs: 2.9 cm LVPWd: 0.87 cm LA dimension: 3.5 cm FS: 38.8 % LAV(MOD-bp): 44.3 ml LVAd ap4: 30.7 cm2 SV(MOD-sp4): 69.2 ml LAV(MOD-bp) Indexed: 21.8 ml/m2 EDV(MOD-sp4): 108.0 ml LAV(MOD-sp2): 40.9 ml EDV(sp4-el): 112.4 ml LAV(MOD-sp4): 43.4 ml LVAs ap4: 16.5 cm2 ESV(MOD-sp4): 38.9 ml ESV(sp4-el): 40.7 ml EF(MOD-sp4): 64.0 % EF(sp4-el): 63.8 % SV(sp4-el): 71.7 ml LA A4 area: 17.7 cm2 RA A4 area: 16.1 cm2 Time Measurements MV dec time: 0.27 sec Doppler Measurements AND Calculations MV E max veronica: 106.9 cm/sec Lat Peak E' Veronica: 13.0 cm/sec Med Peak E' Veronica: 10.5 cm/sec MV A max veronica: 76.7 cm/sec E/E' lat: 8.2 E/E' med: 10.1 MV E/A: 1.4 Ao V2 max: 165.7 cm/sec LV V1 max: 132.1 cm/sec PA V2 max: 130.7 cm/sec Ao max P.0 mmHg LV V1 max P.0 mmHg Interpretation Summary Left ventricular systolic function is normal. The estimated ejection fraction is 65 %. Apical false tendon noted. Trivial mitral valve insufficiency. Trivial tricuspid valve insufficiency. Unable to estimate RV systolic pressure/pulmonary artery pressure due to technically difficult study. Normal diastology for age. Bubble contrast study negative for right to left interatrial shunt. 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 [address] HISTORY AND PHYSICAL Observed: 09/19/2017 Status: F Source: [place] EXAM 12:54 PM [facility] Medical Records Department [address] [place] [address] History and Physical 09/19/17 1238 MR#: [id number] Acct: [id number] Name: STEPHANIE MOORE Rep #: [id number] : 1960 57 From: Chata Phipps MD PCP: Anuj Hanson MD Status: ADM IN Y Location: [facility] [id number] Problem List (1) Hyperglycemia Status: Acute (2) Acute ischemic stroke Status: Acute (3) Chronic back pain Status: Chronic (4) Anxiety Status: Chronic (5) Reflex sympathetic dystrophy Status: Chronic History of Present Illness Date of Admission: 09/19/17 Chief Complaint: Confusion, headache, left arm weakness. The patient is a 57 year old F with past medical history as mentioned above presented to the emergency room because of confusion, headache and left arm weakness. Patient's daughter mentioned that his mother has been confused and acting unusual at home for the last week. She mentioned that she forgot water running in the kitchen and forgot to close the house door. The patient went to visit her daughter at work today and her daughter mentioned that she was talking to me and was looking past me and she seemed confused. The patient complained of one-week history of headache, both frontal and occipital headache, throbbing headache, 7 out of 10 in severity, not radiating, no associated symptoms and no aggravating or relieving factors. Patient denied blurred vision or slurred speech but her daughter stated that her speech was not normal for the last few days. The patient complains also of left hand and arm numbness and weakness that has been going on for the same duration 1 week. The patient mentioned that her driving skills are getting badly worse and this morning, she was driving on the opposite [place] without knowing. She mentioned that lately, she does not look to have left side when she drives backward and this has been going on for the last week. She does have minimal left facial droop. In the emergency department, her vital signs were stable. Her NIH stroke was 2. She is not a candidate for TPA because her symptoms started 1 week ago. Her routine blood work remarkable for hyperglycemia and mild leukocytosis which is likely reactive. Chest x-ray showed no acute findings. CT scan brain without contrast showed right frontal lobe abnormal hypoattenuation suggestive of subacute infarction. MRI brain, to be done because patient had spinal cord stimulator that was removed but still have the connectors and she was informed that she cannot have an MRI. CT scan brain with contrast revealed no suspicious enhancing lesions, no masses, revealed persistent hypoattenuation on the right frontal/temporal region consistent with subacute infarct. Her EKG revealed normal sinus rhythm without evidence of acute ischemic changes or cardiac arrhythmias. She is being admitted for subacute right frontal/temporal infarct and hypoglycemia. Past Medical History Past Medical History (Chronic Problems): Chronic Problems Chronic back pain (Chronic) Anxiety (Chronic) Reflex sympathetic dystrophy (Chronic) Allergies acetaminophen [From Darvocet-N] Adverse Reaction (Verified 09/19/17 09:40) Nausea hydrocodone [From Vicodin] Adverse Reaction (Verified 09/19/17 09:40) Other pentazocine [From Talwin] Adverse Reaction (Verified 09/19/17 09:40) Other propoxyphene [From Darvocet-N] Adverse Reaction (Verified 09/19/17 09:40) Nausea Home Medications: Ambulatory Orders Medication Instructions Recorded ALPRAZolam [Xanax] 1 mg PO QHS 09/19/17 Surgical History: cholecystectomy, - - Spinal cord stimulator, status post removal, still have the connectors and wires. 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 Smoking Status: Former smoker Alcohol: None Drugs: None - *Family History Maternal History Items: Heart Disease, Hypertension, No pertinent history Review of Systems Constitutional: Denies: Anorexia, Chills, Fever, Weakness Eyes: Denies: Blurred vision, Double vision, Drainage, Redness HEENT: Denies: Difficulty Hearing, Ear Pain, Eye Pain, Nasal Congestion, Sore Throat Cardiovascular: Denies: Chest Pain, Chest Pressure, Chest Tightness, Heaviness, Light Headedness, Palpitations, Syncope Respiratory: Denies: Cough, Pleuritic Pain, Shortness of Breath, Sputum production, Wheezing Gastrointestinal: Denies: Abdominal Pain, Constipation, Diarrhea, Nausea, Vomiting Genitourinary: Denies: Dysuria, Frequency, Hematuria Musculoskeletal: Denies: Arm Pain, Back Pain, Foot Pain Skin: Denies: Dryness, Rash Neurological: Reports: Change in Speech, Confusion, Focal weakness, Headaches, Numbness, Tingling. Denies: Balance problems, Blurred vision Psychiatric: Reports: Anxiety. Denies: Depression, Suicidal Ideations Endocrine: Denies: Change in Body Habitus, Polydipsia VTE Information - Inpt Only VTE Present on Admission: No VTE Mechan Device Prophylaxis: None VTE Pharm Prophylaxis ordered?: Yes Patient Problems: Active and Suspected Problems Hyperglycemia (Acute) Acute ischemic stroke (Acute) - Physical Exam General: Alert, Oriented x3, Cooperative, No apparent distress HEENT: Atraumatic, PERRLA, EOMI, Normocephalic Oral: Moist Mucosa, No Gingival or Mucosal Lesions/ Ulcerations Neck: Supple, No JVD, Negative Carotid Bruits, Trachea Midline, Thyroid Normal Size and Texture Lungs: Clear to auscultation, Normal air movement, No rhonchi, No wheeze, No rales Cardiovascular: Regular rate, Regular Rhythm, Normal S1, Normal S2, No murmurs Abdomen: Bowel Sounds Present, Soft, Non Tender, Non-Distended, No Hepato-splenomegaly Extremities: No clubbing, No cyanosis, No edema Skin: No rashes, No breakdown Lymphatic: No Cervical, Supraclavicular, or Inguinal Adenopathy Neurological: - - Minimal left-sided facial droop, other cranial nerves are intact. Minimal weakness on the left upper extremity, normal power on all other limbs. Left-sided neglect. Psych/Mental Status: Normal Affect, Appropriate, Alert and oriented to time, place, person, mood and affect Vital Signs Temp Pulse Resp BP Pulse Ox 98.1 F 67 18 145/82 H 99 09/19/17 09:40 09/19/17 11:26 09/19/17 11:26 09/19/17 11:26 09/19/17 11:26 Oxygen Delivery Method Room Air Weight: 213 lb 2.992 oz Body Mass Index (BMI) 35.4 Finger Stick Blood Glucose 173 Laboratory Tests Past 24 Hrs POC Glucose POC Glucose 173 H Clinical Impression(s) from Imaging Studies Brain CT 09/19/17 10:00 IMPRESSION: No acute hemorrhage but there is abnormal hypoattenuation in the right frontal lobe suggesting subacute infarct or underlying lesion. Recommend further evaluation with contrasted CT or MRI. There is no midline shift. N.B. : The above information has been verbally conveyed by Chad Boston MD to Satish Jj, [facility] Physician, on 09/19/2017 10:53:50 (ET). Electronically Signed: Chad Boston MD at 10:54 EDT , Service support , Chest X-Ray 09/19/17 10:00 IMPRESSION: Normal x-ray examination of the chest. Electronically Signed: Chad Boston MD at 10:55 EDT , Service support , Brain CT 09/19/17 11:07 IMPRESSION: No suspicious enhancement after contrast demonstration to suspect an underlying mass lesion. Persistent hypoattenuation the right frontal/temporal region consistent with subacute infarct. No acute hemorrhage. Electronically Signed: Chad Boston MD at 11:29 EDT , Service support , Assessment/Plan All Active Problems Hyperglycemia (Acute) Acute ischemic stroke (Acute) This is a 57 presented to the emergency room because of headache, left arm weakness, left-sided neglect and confusion and she was found to have right frontal/temporal region subacute infarct as well as hyperglycemia without history of diabetes she is being admitted for evaluation and treatment. #1 headache/left facial droop/left-sided neglect/left arm weakness and numbness: CT scan brain with contrast revealed subacute infarction of the right frontal/temporal region. She has no risk factors for stroke. No significant family history of recurrent stroke. MRI brain cannot be done because she has spinal cord stimulator connectors. Her blood pressure this time stable. Her symptoms started 1 week ago, she is not a candidate for TPA. Plan: Admit to PCU, cardiac monitoring, NIH stroke scale, lipid profile, start aspirin and Lipitor, 2D echocardiogram, bilateral carotid Doppler, neurology consult, PT OT evaluation and treatment. #2 hyperglycemia: Without history of diabetes. Blood sugar was 183, repeat sugar was 173. Plan: Accu-Cheks every 6 hours, hemoglobin A1c. #3 chronic back pain: Status post removal of spinal cord stimulator few years ago, chronic tubes are still in place. Plan to continue methadone and Percocet as needed for pain. #4 anxiety: Continue Xanax nightly. #5 reflex sympathetic dystrophy: Continue methadone and Percocet as needed for pain. #6 DVT prophylaxis: Subcu Lovenox. This note was generated with [employer] software. It may contain incorrect words, spelling, and punctuation that were not noted in checking the note before signing. Code Visit Inpatient E AND M: [id number] Init Hosp L3 09/19/17 1254 <Electronically signed by Chata Phipps MD> Date Chata Phipps MD Cosigner Signature: Date (if applicable) CC: Anuj Hanson MD; Chata Phipps Signed EMERGENCY DEPARTMENT Observed: 09/19/2017 Status: F Source: [place] SUMMARY 12:08 PM [facility] Medical Records Department [address] [place] [address] Emergency Department Summary 09/19/17 1205 MR#: [id number] Acct: [id number] Name: STEPHANIE MOORE Rep #: [id number] : 1960 57 From: Satish Jj MD PCP: Anuj Hanson MD Status: REG ER - ER Visit Summary Date of Service: 09/19/17 Chief Complaint: Weakness and headache History of Present Illness: The patient is a 57 F who presents with headache and weakness. She complains of a gradual onset frontal headache over the past 1 week. She currently rates this as a 7 out of 10. No fall no injury. She states she has difficulty concentrating. She also has noticed some weakness and tingling in her left arm over the past week. No slurred speech or speech difficulty. No recent illness otherwise. No fevers chest pain shortness of breath vomiting diarrhea. She has a history of RSD but no other medical history such as diabetes hypertension hyperlipidemia. Physical Examination: Afebrile vitals are unremarkable Moist mucous membranes Heart regular rate and rhythm Lungs are clear Abdomen soft Patient alert and oriented NIH stroke scale is 2 she does have some mild left facial droop as well as decreased sensation to light touch of the left arm and left leg she has some weakness in the left hand but does not have drift in the left arm she has no ataxia Test Results: EKG shows sinus rhythm at a rate of 71. Labs notable for white blood cell count 13.2. Coagulation studies normal. Troponin negative. Chest x-ray normal. CT the head shows no acute hemorrhage there is abnormal in attenuation in the right frontal lobe concerning for subacute infarct versus an underlying mass lesion. CT head and IV contrast shows no suspicious enhancement to suggest underlying mass so this is more suggestive of subacute infarct. Emergency Department Course and Treatment: As above. Patient was unable to get an MRI due to a history of spinal stimulator. Patient notes that the stimulator itself has been removed but she still has the leads in place and was told that she cannot get an MRI. I did discuss the patient with Dr. Boucher and patient will undergo further inpatient workup. Patient to be admitted under the hospitalist service. Treatment Plan: [] Disposition: Admit Impression: Subacute right frontal stroke This note was generated with [employer] dictation software. It may contain incorrect words, spelling, and punctuation that were not noted in review of the chart prior to signing ED Disposition - Plan for ED Patient: Chief Complaint: Confusion Referrals: Anuj Hanson MD [Primary Care Provider] - What to do if you have Problems For any increased pain, shortness of breath, bleeding, nausea or vomiting, chest pain, or any unexpected problems, contact your Primary Care Provider. Call [facility] ([phone]) or report to the closest Emergency Room. Call 911 if necessary. 09/19/17 1208 <Electronically signed by Satish Jj MD> Date Satish Jj MD Cosigner Signature (If Indicated): Date CC: Anuj Hanson MD BRAIN/HEAD WITH Observed: 09/19/2017 Status: F Source: [place] CONTRAST 11:08 AM [facility] Imaging Services [address] [place] [address] Brain/Head WITH Contrast MR#: [id number] Acct: [id number] Name: STEPHANIE MOORE Rep #: [id number] : 1960 F 57 From: Jaleel Boston MD PCP: Anuj Hanson MD Status: REG ER Study: Brain/Head WITH Contrast Date of Exam: 09/19/17 Exam# [id number] Ordering Dr: Satish Jj MD STUDY: CT BRAIN WITH CONTRAST REASON FOR EXAM: Female, 57 years old. Confusion, headache RADIATION DOSAGE (If Supplied By Facility): CTDIvol = ( 44.99 ) mGy, DLP = ( 846.73 ) mGycm TECHNIQUE: Transaxial CT imaging of the brain was performed post contrast administration. The examination was performed with intravenous administration of 50 ml of Isovue 370 contrast material. Individualized dose optimization techniques were used for this CT. COMPARISON: None. FINDINGS: Normal soft tissue structures. Normal calvarium. There is no suspicious lesion after contrast administration. There is persistent hypoattenuation in the right frontal/temporal region consistent with subacute infarct. There is no midline shift but there is subtle mass effect upon the sulci and gyral pattern within the right frontal lobe. Normal size ventricles and extra-axial spaces for the patient's age. Normal white matter tracts of the cerebral hemispheres. Normal basal ganglia and thalami. Normal brainstem. Normal cerebellum. There is no intracranial hemorrhage. There are no findings of an acute ischemic infarction. Normal visualized paranasal sinuses. CT/Brain/Head WITH Contrast IMPRESSION: No suspicious enhancement after contrast demonstration to suspect an underlying mass lesion. Persistent hypoattenuation the right frontal/temporal region consistent with subacute infarct. No acute hemorrhage. 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 BEDSIDE GLUCOSE Collected: 09/19/2017 Status: F Source: [place] 10:53 AM [facility] TYPE CODE TESTS RESULT OUT OF REFERENCE UNITS RANGE LAB L501.080 70-110 mg/dL High BEDSIDE GLU 173 Result Comment: MANAGEMENT OF PATIENT CARE PER NURSING PROTOCOL Performed By: #### L501.080 #### [facility] Laboratory [place] [address] CBC W/DIFF, AUTOMATED Collected: 09/19/2017 Status: F Source: [place] 10:07 AM [facility] TYPE CODE TESTS RESULT OUT OF RANGE REFERENCE UNITS LAB L100.1000 4.4-11.0 K/mm3 High WBC 13.2 LAB L100.1200 4.2-5.4 M/mm3 Normal RBC 4.32 LAB L100.1300 12.0-15.0 g/dl Normal HGB 12.8 LAB L100.1400 37-47 % Normal HCT 39.2 LAB L100.1500 81-99 fL Normal MCV 90.7 LAB L100.1600 27.0-32.0 pg Normal MCH 29.6 LAB L100.1700 32-36 g/gl Normal MCHC 32.7 LAB L100.1810 11.6-14.6 % Normal RDW CV 13.0 LAB L100.1820 35.1-43.9 fl Normal RDW SD 43.2 LAB L100.1900 150-450 K/mm3 Normal PLT 272 LAB L100.2000 6.2-12.0 fl Normal MPV 10.2 LAB L100.2100 47-70 % High NEUT% 85.5 LAB L100.2200 19-41 % Low LY% 10.1 LAB L100.2300 0-10 % Normal MONO% 4.1 LAB L100.2400 0-5 % Normal EO% 0.0 LAB L100.2500 0-1 % Normal BASO% 0.1 LAB L100.2550 0.0-0.9 % Normal IM GRAN % 0.200 Result Comment: IG% - Immature Granulocytes (promyelocytes, myelocytes and metamyelocytes) > 1% indicates that a LEFT SHIFT is Present. LAB L100.2620 2.0-7.7 X10 3/uL High Absolute Neut 11.3 LAB L100.2720 0.83-4.51 X10 3/ul Normal Absolute Lymph 1.34 Performed By: #### L100.0100 #### [facility] Laboratory [address] [place], [address] BASIC METABOLIC Collected: 09/19/2017 Status: F Source: [place] PROFILE (BMP) 10:07 AM [facility] TYPE CODE TESTS RESULT OUT OF RANGE REFERENCE UNITS LAB L501.0100 74-106 mg/dL High GLU 183 Result Comment: Fasting Glucose result greater than or equal to 126 mg/dL suggests DIABETES MELLITUS per A.D.A. criteria. Please note revised GLUCOSE reference range effective 2017. LAB L501.1000 7-18 mg/dL Normal BUN 14 LAB L501.1100 0.55-1.02 mg/dL Normal CREAT,SERUM 0.74 Result Comment: The validity of the calculated GFR AND GFRAA in patients over 70 years has not been determined. Clinical correlation is essential. LAB L501.1110 >60 mL/min Normal EST GFR 87 Result Comment: Non- GFR Calc LAB L501.1115 >60 mL/min Normal EST GFR - AA 105 Result Comment: GFR Calc LAB L501.1255 ml/min Normal Estimated CRCL 77.29 LAB L501.1300 10-20 RATIO Normal BUN/CRE 19.0 LAB L501.2200 8.5-10 mg/dL Normal .1 CA 9.1 LAB L501.5300 136-14 mmol/L Normal 5 NA 141 LAB L501.5600 3.5-5. mmol/L Normal 1 K 3.6 LAB L501.5900 98-107 mmol/L Normal CL 107 LAB L501.6100 21.0-3 mmol/L Normal 2.0 CO2 27.0 LAB L501.6200 5-15 Normal GAP 7 Performed By: #### L500.2500, L501.4010 #### [facility] [address] [place], [address] TROPONIN-I Collected: 09/19/2017 Status: F Source: [place] 10:07 AM [facility] TYPE CODE TESTS RESULT OUT OF RANGE REFERENCE UNITS LAB L501.4010 <0.045 ng/mL Normal < 0.015 TROPONIN-I Result Comment: TROPONIN-I EXPECTED VALUES <0.045 Negative 0.045 - 0.590 Consistent with Cardiac Damage > OR = 0.600 Critical Value Not every elevated troponin is indicative of IL. These values should be used with clinical judgement in examining the patient's clinical picture for diagnosis. To establish a diagnosis of IL versus myocardial injury, there must be a demonstrated rise and/or fall in the troponin values, in addition to ischemic symptoms, EKG changes, new regional wall motion abnormality, and/or angiographical evidence. PLEASE NOTE: REFERENCE RANGES EDITED 17 Performed By: #### L500.2500, L501.4010 #### [facility] [address] [place], [address] PROTHROMBIN TIME W/INR Collected: 09/19/2017 Status: F Source: [place] 10:07 AM [facility] TYPE CODE TESTS RESULT OUT OF RANGE REFERENCE UNITS LAB L300.4150 11.7-14.9 SECONDS Normal PROTIME 13.0 LAB L300.4200 Normal INR 1.0 Performed By: #### L300.3900, L300.4310 #### [facility] [address] [place], [address] PARTIAL THROMBOPLAST Collected: 09/19/2017 Status: F Source: [place] TIME 10:07 AM [facility] TYPE CODE TESTS RESULT OUT OF RANGE REFERENCE UNITS LAB L300.4310 24.1-36.2 Seconds Normal PTT 32.9 Performed By: #### L300.3900, L300.4310 #### [facility] [address] [place], [address] HEMOGLOBIN A1C Collected: 09/19/2017 Status: F Source: [place] 10:07 AM [facility] TYPE CODE TESTS RESULT OUT OF RANGE REFERENCE UNITS LAB L501.9985 4.2-6.3 % Normal HGB A1C 5.7 Performed By: #### L501.9985 #### [facility] [address] [place], [address] BRAIN/HEAD WITHOUT Observed: 09/19/2017 Status: F Source: [place] CONTRAST 10:01 AM [facility] Imaging Services [address] [place] [address] Brain/Head without Contrast MR#: [id number] Acct: [id number] Name: STEPHANIE MOORE Rep #: [id number] : 1960 F 57 From: Jaleel Boston MD PCP: Anuj Hanson MD Status: REG ER Study: Brain/Head without Contrast Date of Exam: 09/19/17 Exam# [id number] Ordering Dr: Satish Jj MD STUDY: CT BRAIN WITHOUT CONTRAST REASON FOR EXAM: Female, 57 years old. Headache x1 week, dizziness RADIATION DOSAGE (If Supplied By Facility): CTDIvol = ( 44.99 ) mGy, DLP = ( 796.11 ) mGycm TECHNIQUE: Transaxial CT imaging of the brain was performed without administration of intravenous contrast material. Individualized dose optimization techniques were used for this CT. COMPARISON: None. FINDINGS: Normal soft tissue structures. Normal calvarium. There is asymmetric edema in the right frontal lobe suggesting either previous infarct or underlying lesion. Further evaluation with contrasted CT or MRI recommended. There is no midline shift, there is some subtle mass effect upon the sulci and gyral pattern in the right frontal lobe. There is no intracranial hemorrhage. There are no findings of an acute ischemic infarction. Normal visualized paranasal sinuses. CT/Brain/Head without Contrast IMPRESSION: No acute hemorrhage but there is abnormal hypoattenuation in the right frontal lobe suggesting subacute infarct or underlying lesion. Recommend further evaluation with contrasted CT or MRI. There is no midline shift. N.B. : The above information has been verbally conveyed by Chad Boston MD to Satish Jj, Covering Physician, on 09/19/2017 10:53:50 (ET). 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 Cough, confusion TECHNIQUE: Single AP portable view of the chest. COMPARISON: None. FINDINGS: EKG leads overlie the chest The lungs are clear and expanded. There is no demonstrated pleural abnormality. Normal size heart. Normal mediastinum and pricilla. Normal visualized pulmonary arteries. Normal visualized aortic arch and descending thoracic aorta. Normal visualized thoracic spine. Normal visualized ribs, clavicles, and shoulders. There is no demonstrated abnormality of the visualized soft tissue structures of the upper abdomen. RAD/Chest 1 View IMPRESSION: Normal x-ray examination of the chest. 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 SR-BRAIN/HEAD WITHOUT Observed: 09/19/2017 Status: F Source: [place] CONTRAST IMPORT 12:00 AM [facility] REPOSITORY Images were obtained outside of [facility] [id number] CR-CHEST 1 VIEW Observed: 09/19/2017 Status: F Source: [place] IMPORT 12:00 AM [facility] REPOSITORY Images were obtained outside of [facility] [id number] SR-BRAIN/HEAD WITH Observed: 09/19/2017 Status: F Source: [place] CONTRAST IMPORT 12:00 AM [facility] REPOSIT[facility] Images were obtained outside of [facility] [id number] US-CAROTID DUPLEX Observed: 09/19/2017 Status: F Source: [place] ULTRASOUND IMPORT 12:00 AM [facility] REPOS[facility] Images were obtained outside of [facility] [id number] CR-CHEST 1 VIEW Observed: 09/19/2017 Status: F Source: [place] IMPORT 12:00 AM [facility] REPOSITORY Images were obtained outside of [facility] [id number] PROGRESS Observed: 07/24/2017 Status: COMPLETED Source: [place] 4:29 PM [facility] REPOSITORY HNO ID: [id number] Author: Anuj Hanson Service: (none) Author Type: Physician Type: Progress Notes Filed: 07/24/2017 8:06 PM Note Text: Reason for Visit Patient presents with: Physical Stephanie Dayanna Moore is a 57 year old female who presents here today for CPE. Health Maintenance DTAP,TDAP,TD(1 - Tdap) HEPATITIS C SCREENING LIPID SCREEN FECAL OCCULT BLOOD MAMMOGRAM HPI She does not like to come to the doctors, Has complex regional pain syndrome She sees pain management at [facility] for the same- it is Dr. Diallo who takes care of her. Has never called off a day in 12 years, works with [employer]. Works through the pain. Diet-can do better with her diet Sleep- erratic shifts Stress- some Exercise- walks around 4 miles at work No problem-specific Assessment AND Plan notes found for this encounter. PAST MEDICAL HISTORY Diagnosis Date - DVT (deep venous thrombosis) (HCC) 2009 - Dysthymic disorder Depression (non-psychotic) - Reflex sympathetic dystrophy of the lower limb PAST SURGICAL HISTORY Procedure Laterality Date - DELIVERY ONLY X3 , low cervical - DANDC, DIAG AND/OR THERAPEUTIC Dilation AND curettage - KNEE SCOPE,DIAGNOSTIC 1996,1999 Arthroscopy, knee right X 2 - LAP CHOLECYSTECT/CHOLANGIOGRAPHY - PAST SURGICAL HISTORY OF 2004 removal spinal cord stimulator - PAST SURGICAL HISTORY OF right foot tendon release, - PAST SURGICAL HISTORY OF 07/2014 Left wrist, first dorsal compartment release - PAST SURGICAL HISTORY OF plantar fascitis - REPAIR INTERCARP/CARP-METACARP JT Left 06/29/2016 Left thumb CMC arthroplasty with ligament reconstruction and tendon interposition - REVISE MEDIAN N/CARPAL TUNNEL SURG Carpal tunnel decomp bilateral - S SPINAL CORD STIMULATOR, 1999 - TOTAL ABDOM HYSTERECTOMY Hysterectomy, IMTIAZ FAMILY HISTORY Problem Relation Age of Onset - Cancer Mother lung - Colon Cancer Father - Hypertension Father - Heart Sister no details MVP Social History Substance Use Topics - Smoking status: Former Smoker Quit date: 02/25/2004 - Smokeless tobacco: Never Used - Alcohol use No Past medical history, appointments, medications, allergies reviewed. Pertinent Lab/Diagnostic Studies are reviewed and discussed today Current Outpatient Prescriptions: - cyclobenzaprine (FLEXERIL) 10 mg tablet - celecoxib (CELEBREX) 200 mg capsule - ALPRAZolam (XANAX) 1 mg tablet - methadone 10 mg tablet - oxyCODONE-acetaminophen (PERCOCET) 5-325 mg tablet Review of Systems CONSTITUTIONAL: No fevers, chills, nightsweats, unintended weight loss HEENT: Denies frequent or severe heaches, nasal congestion/sinus symptoms, problematic allergy problems. EYES: No diplopia or blurry vision. CARDIOVASCULAR: No chest pain, dyspnea, palpitations, orthopnea, PND, ankle edema. PULM: No dyspnea, unexplained cough. GI: No dysphagia/odynophagia, problematic reflux, constipation, diarrhea, changes in stool habits, hematochezia, melena. : No new urinary complaints, including dysuria, gross hematuria or pyuria. NEURO: No new balance problems, peripheral weakness/paresthesias or numbness of concern. MUSC-SKEL: No new joint pain, swelling, or erythema. PSY: No concerns regarding depression, anxiety or panic. INTEGUMENTARY: No new skin changes (rash, new or changing mole, new growth) Physical Exam BP 120/78 (BP Site: Left Arm, BP Position: Sitting, BP Cuff Size: Regular Adult) Pulse 75 Temp 36.4 ?C (97.5 ?F) Resp 12 Ht 165 cm (5' 4.96) Wt 94.9 kg (209 lb 1.9 oz) SpO2 99% BMI 34.84 kg/m? General appearance: Well appearing, alert, in no acute distress, well-hydrated, well nourished. Skin: Skin color, texture, turgor normal, no suspicious rashes or lesions Head: Normocephalic, no masses, lesions, tenderness or abnormalities Eyes: Anicteric sclera. Pupils are equally round and reactive to light. Extraocular movements are intact. Ears: External ears normal, canals clear Nose/Sinuses: Nares normal, septum midline, mucosa normal, no drainage or sinus tenderness Oropharynx: Lips, mucosa, and tongue normal, teeth and gums normal, oropharynx normal Neck: Supple, no adenopathy; thyroid symmetric, normal size, no bruits Back: Normal exam Lungs: Lungs clear to auscultation. No wheezing, rhonchi, rales Heart: RRR without murmur, gallop, or rubs. No ectopy Abdomen: Normal abdominal exam, Abdomen soft, non-tender. Bowel sounds normal. No masses, organomegaly Extremities: No deformities, edema, skin discoloration, clubbing or cyanosis. Good capillary refill. Musculoskeletal: No joint swelling, deformity, or tenderness Peripheral pulses: Normal Neuro: Gait normal. Reflexes normal and symmetric. Sensation grossly intact. ASSESSMENT/PLAN: 1. Annual physical exam - ICD9: V70.0, ICD10: Z00.00 (primary diagnosis) - Encouraged monthly Breast Self Exam - Follow up for annual exam in one year. - BASIC METABOLIC PNL - LIPID PANEL BASIC 2. Complex regional pain syndrome type 1 of right lower extremity - ICD9: 337.22, ICD10: G90.521 3. Breast cancer screening by mammogram - ICD9: V76.12, ICD10: Z12.31 - Encouraged monthly BSE - Follow up for annual exam in one year. - [facility] DIAGNOSTIC BILAT 4. Colon cancer screening - ICD9: V76.51, ICD10: Z12.11 - FECAL OCCULT BLOOD TEST f/u 3 months to discuss about weight loss and diet and exercise etc MD JOLYNN TATEOV Observed: 07/24/2017 Status: COMPLETED Source: [place] 4:00 PM [facility] REPOSITORY Office Visit (INTMWS) STEPHANIE MOORE ([id number]) 1960 F Date Time Provider Department 07/24/17 4:00 PM ANUJ HANSON During your visit today, we recorded the following information about you: Temperature Pulse Respiration Blood pressure 97.5 degrees 75/minute 12/minute 120/78 Weight Height 94.9 kg 1.65 m ANUJ HANSON MD 07/24/2017 8:06 PM Signed Reason for Visit Patient presents with: Physical Stephanie Moore is a 57 year old female who presents here today for CPE. Health Maintenance DTAP,TDAP,TD(1 - Tdap) HEPATITIS C SCREENING LIPID SCREEN FECAL OCCULT BLOOD MAMMOGRAM HPI She does not like to come to the doctors, Has complex regional pain syndrome She sees pain management at [facility] for the same- it is Dr. Diallo who takes care of her. Has never called off a day in 12 years, works with [employer]. Works through the pain. Diet-can do better with her diet Sleep- erratic shifts Stress- some Exercise- walks around 4 miles at work No problem-specific Assessment AND Plan notes found for this encounter. PAST MEDICAL HISTORY Diagnosis Date - DVT (deep venous thrombosis) (HCC) 2009 - Dysthymic disorder Depression (non-psychotic) - Reflex sympathetic dystrophy of the lower limb PAST SURGICAL HISTORY Procedure Laterality Date - DELIVERY ONLY X3 , low cervical - DANDC, DIAG AND/OR THERAPEUTIC Dilation AND curettage - KNEE SCOPE,DIAGNOSTIC 1996,1999 Arthroscopy, knee right X 2 - LAP CHOLECYSTECT/CHOLANGIOGRAPHY - PAST SURGICAL HISTORY OF 2004 removal spinal cord stimulator - PAST SURGICAL HISTORY OF right foot tendon release, - PAST SURGICAL HISTORY OF 07/2014 Left wrist, first dorsal compartment release - PAST SURGICAL HISTORY OF plantar fascitis - REPAIR INTERCARP/CARP-METACARP JT Left 06/29/2016 Left thumb CMC arthroplasty with ligament reconstruction and tendon interposition - REVISE MEDIAN N/CARPAL TUNNEL SURG Carpal tunnel decomp bilateral - S SPINAL CORD STIMULATOR, 1999 - TOTAL ABDOM HYSTERECTOMY Hysterectomy, IMTIAZ FAMILY HISTORY Problem Relation Age of Onset - Cancer Mother lung - Colon Cancer Father - Hypertension Father - Heart Sister no details MVP Social History Substance Use Topics - Smoking status: Former Smoker Quit date: 02/25/2004 - Smokeless tobacco: Never Used - Alcohol use No Past medical history, appointments, medications, allergies reviewed. Pertinent Lab/Diagnostic Studies are reviewed and discussed today Current Outpatient Prescriptions: - cyclobenzaprine (FLEXERIL) 10 mg tablet - celecoxib (CELEBREX) 200 mg capsule - ALPRAZolam (XANAX) 1 mg tablet - methadone 10 mg tablet - oxyCODONE-acetaminophen (PERCOCET) 5-325 mg tablet Review of Systems CONSTITUTIONAL: No fevers, chills, nightsweats, unintended weight loss HEENT: Denies frequent or severe heaches, nasal congestion/sinus symptoms, problematic allergy problems. EYES: No diplopia or blurry vision. CARDIOVASCULAR: No chest pain, dyspnea, palpitations, orthopnea, PND, ankle edema. PULM: No dyspnea, unexplained cough. GI: No dysphagia/odynophagia, problematic reflux, constipation, diarrhea, changes in stool habits, hematochezia, melena. : No new urinary complaints, including dysuria, gross hematuria or pyuria. NEURO: No new balance problems, peripheral weakness/paresthesias or numbness of concern. MUSC-SKEL: No new joint pain, swelling, or erythema. PSY: No concerns regarding depression, anxiety or panic. INTEGUMENTARY: No new skin changes (rash, new or changing mole, new growth) Physical Exam BP 120/78 (BP Site: Left Arm, BP Position: Sitting, BP Cuff Size: Regular Adult) Pulse 75 Temp 36.4 ?C (97.5 ?F) Resp 12 Ht 165 cm (5' 4.96) Wt 94.9 kg (209 lb 1.9 oz) SpO2 99% BMI 34.84 kg/m? General appearance: Well appearing, alert, in no acute distress, well-hydrated, well nourished. Skin: Skin color, texture, turgor normal, no suspicious rashes or lesions Head: Normocephalic, no masses, lesions, tenderness or abnormalities Eyes: Anicteric sclera. Pupils are equally round and reactive to light. Extraocular movements are intact. Ears: External ears normal, canals clear Nose/Sinuses: Nares normal, septum midline, mucosa normal, no drainage or sinus tenderness Oropharynx: Lips, mucosa, and tongue normal, teeth and gums normal, oropharynx normal Neck: Supple, no adenopathy; thyroid symmetric, normal size, no bruits Back: Normal exam Lungs: Lungs clear to auscultation. No wheezing, rhonchi, rales Heart: RRR without murmur, gallop, or rubs. No ectopy Abdomen: Normal abdominal exam, Abdomen soft, non-tender. Bowel sounds normal. No masses, organomegaly Extremities: No deformities, edema, skin discoloration, clubbing or cyanosis. Good capillary refill. Musculoskeletal: No joint swelling, deformity, or tenderness Peripheral pulses: Normal Neuro: Gait normal. Reflexes normal and symmetric. Sensation grossly intact. ASSESSMENT/PLAN: 1. Annual physical exam - ICD9: V70.0, ICD10: Z00.00 (primary diagnosis) - Encouraged monthly Breast Self Exam - Follow up for annual exam in one year. - BASIC METABOLIC PNL - LIPID PANEL BASIC 2. Complex regional pain syndrome type 1 of right lower extremity - ICD9: 337.22, ICD10: G90.521 3. Breast cancer screening by mammogram - ICD9: V76.12, ICD10: Z12.31 - Encouraged monthly BSE - Follow up for annual exam in one year. - [facility] BILAT 4. Colon cancer screening - ICD9: V76.51, ICD10: Z12.11 - FECAL OCCULT BLOOD TEST f/u 3 months to discuss about weight loss and diet and exercise etc ANUJ HANSON MD Referring Provider: SELF [200] Allergies As of Date: 07/24/2017 Noted Allergy Reaction OPIOIDS - MORPHINE ANALOGUES 08/29/2000 Comments: vicodin PENTAZOCINE 08/29/2000 Comments: talwin PROPOXYPHENE 08/29/2000 Comments: darvacet steri strips and paper tape [Othe*12/30/2006 TALACEN (PENTAZOCINE-ACETAMINOPHE*08/20/2005 1 - Mental Status Change Date Reviewed: 07/24/2017 Reviewed by: Enrique Carvajal LPN - Fully Assessed Reason for Visit: Physical [83] Primary Visit Diagnosis:Annual physical exam [Z00.00] Other Visit Diagnoses:Complex regional pain syndrome type 1 of right lower extremity [G90.521] Breast cancer screening by mammogram [Z12.31] Colon cancer screening [Z12.11] Order(s):BASIC METABOLIC PNL [SQBMP] Order #: [id number] FUTURE LIPID PANEL BASIC [SQLIPB] Order #: [id number] FUTURE [facility] BILAT [7115221] Order #: [id number] FUTURE FECAL OCCULT BLOOD TEST [SQIFOBT] Order #: [id number] FUTURE Prescriptions as of 07/24/2017 Sig: CYCLOBENZAPRINE 10 MG TABLET Take 1 tablet by mouth three * CELECOXIB 200 MG CAPSULE Take 1 capsule by mouth as ne* ALPRAZOLAM 1 MG TABLET Take 1 tablet by mouth at bed* METHADONE 10 MG TABLET Take three tablets , three ti* OXYCODONE-ACETAMINOPHEN 5 MG-* Take 1 tablet by mouth every * Problem List As Of Date 07/24/2017 Noted Resolved Reflex sympathetic dystrophy of lower limb [G90*INVALID FOR* NEURALGIA/NEURITIS NOS [CYN4090] INVALID FOR* MONONEURITIS LEG NOS [G57.90] INVALID FOR* DYSTHYMIC DISORDER [F34.1] More... ACUTE CHOLECYSTITIS [K81.0] INVALID FOR* Obesity [E66.9] INVALID FOR* De Quervain's tenosynovitis, left [M65.4] INVALID FOR* CMC arthritis [M19.049] INVALID FOR* Thumb pain [M79.646] INVALID FOR* Encounter Status:Closed by ANUJ HANSON MD on 07/24/17 ALLERGIES ALLERGIES DATE TYPE / CODE NAME / CODE REACTION SEVERITY SOURCE Drug hydrocodone/F0060 Other Unknown [place] Allergy/635317162( 51850(RXNORM) [facility] Drug propoxyphene/F006 Nausea Unknown [place] 8 Allergy/459307130( 772116(RXNORM) [facility] Drug pentazocine/F0060 Other Unknown [place] 8 [facility]926525842[facility] acetaminophen/F00 Nausea Unknown [place] 8 Allergy/634444495( 8483476(RXNORM) [facility] Rep[facility] Miscellaneous PAPER TAPE Other Unknown Stephania 8 Allergy/065783426( [facility] Repository Miscellaneous STERI-STRIPS Other Unknown [place] Allergy/590976435( [facility] Repository Miscellaneous OTHER [place] 7 Allergy/637083029( [facility] [place] Rep[place] DRUG/545113762(SNO PENTAZOCINE-ACETA [facility] [place] [address] [place] Rep[place] Drug OPIOIDS - [place] 1 Class/197947181(SN MORPHINE [facility] Main OMED CT) ANALOGUES [place] Rep[place] DRUG PENTAZOCINE [place] 1 INGREDI/240344296( [facility] Main SNOMED CT) [place] Rep[facility] DRUG PROPOXYPHENE [place] 1 INGREDI/317088217( [facility] SNOM[facility]) [place] [facility] ENCOUNTERS ENCOUNTERS ADMIT/DISCHARGE ACCOUNT NUMBER ADMITTING ENCOUNTER LOCATION SOURCE CLASS 03/14/2018/03/18/19 [id number] Ambulatory [address] Main [place] Repository 03/14/2018/03/19/19 [id number] Ambulatory [address] Main [place] Repository 03/06/2018/03/06/19 [id number] Ambulatory [address] Main [place] Repository 03/06/2018/03/06/19 [id number] Ambulatory [address] Main [place] Repository 03/06/2018/03/07/19 [id number] Ambulatory [address] Main [place] Repository 03/06/2018/03/06/19 [id number] Ambulatory [address] Main [place] Repository 03/06/2018/03/10/19 [id number] Ambulatory [address] Main [place] Repository 02/22/2018/02/23/20 [id number] Emergency [place]ia 18 [facility] ding:ED Repository 02/22/2018/02/24/20 [id number] Ambulatory [address] Main [place] Repository 02/20/2018/02/21/20 [id number] Ambulatory [address] Main [place] Repository 02/20/2018/02/22/20 [id number] Ambulatory [address] Main [place] Repository 02/14/2018/02/15/20 [id number] Ambulatory [address] Main [place] Repository 02/13/2018/02/26/19 [id number] Ambulatory [facility] [place] Repository 02/12/2018/02/13/20 [id number] Ambulatory [place] [facility] [place] Repository 02/12/2018/02/15/20 [id number] JAIME SOLIS Inpatient [place] 18 Encounter [facility] [place] Repository 02/11/2018/02/13/20 [id number] Emergency [address] ding:ED Repository 02/10/2018/02/20/20 [id number] Ambulatory [place] 18 [facility] [place] Repository 02/09/2018/02/10/20 [id number] Emergency [address] ding:ED Repository 02/03/2018/02/05/20 [id number] Ambulatory [address] [place] 01/31/2018 [id number] [place] [facility] [place]:H.PMJ 01/29/2018/01/31/20 [id number] Ambulatory [place] 18 [facility] [place] Repository 01/27/2018/02/05/20 [id number] Ambulatory [address] Main [place] Repository 01/22/2018/02/05/20 [id number] Ambulatory [place] 18 [facility] [place] Repository 01/14/2018/01/15/20 [id number] Ambulatory [place] 18 [facility] [place] Repository 01/10/2018/01/11/20 [id number] JONATHON, Ambulatory [address] Main [place] Repository 01/06/2018/01/10/20 [id number] Ambulatory [place] [facility] [place] Repository 01/02/2018 [id number] Ambulatory [facility] ding:OT Repository 01/01/2018/01/02/20 [id number] Ambulatory [place] 18 [facility] [place] Repository 01/01/2018/01/15/20 [id number] Ambulatory [address] Main [place] Repository 01/01/2018/01/15/20 [id number] Ambulatory [address] Main [place] Repository 12/30/2017 [id number] Ambulatory [facility] ding:LABSPEC Repository 12/30/2017/12/31/19 [id number] Ambulatory [address] Main [place] Repository 12/27/2017 [id number] [facility] ng:H.PMJ 12/16/2017/12/18/19 [id number] Ambulatory [place] 18 [facility] [place] Repository 12/13/2017 [id number] [facility] ng:H.OT 12/02/2017/12/04/19 [id number] Ambulatory [facility] [place] Repository 11/28/2017/11/29/19 [id number] Ambulatory [place] [place] Repository 11/28/2017/11/29/19 [id number] Ambulatory [place] 18 [facility] [place] Repository 11/27/2017/11/28/19 [id number] Ambulatory [place] 18 [facility] [place] Repository 11/25/2017/11/28/19 [id number] Ambulatory [place] 18 [facility] [place] Repository 11/20/2017/11/21/19 [id number] Ambulatory [place] 18 [facility] [place] Repository 11/15/2017 [id number] [facility] ng:H.PMJ 11/11/2017/11/12/19 [id number] Ambulatory [place] 18 [facility] [place] Repository 11/01/2017/11/02/19 [id number] Ambulatory [place] 18 [facility] [place] Repository 10/31/2017/11/01/19 [id number] Ambulatory [place] 18 [facility] [place] Repository 10/31/2017/11/02/19 [id number] Ambulatory [place] 18 [facility] [place] Repository 10/25/2017/10/26/19 [id number] Ambulatory [place] 18 [facility] [place] Repository 10/18/2017/10/22/19 [id number] Ambulatory [place] 18 [facility] [place] Repository 10/15/2017/10/17/19 [id number] Ambulatory [place] 18 [facility] [place] Repository 10/11/2017/10/16/19 [id number] Ambulatory [place] 18 [facility] [place] Repository 10/10/2017/10/11/19 [id number] Ambulatory [place] 18 [facility] [place] Repository 10/08/2017/10/10/19 [id number] Ambulatory [place] 18 [facility] [place] Repository 10/04/2017 [id number] [facility] ng:H.PMJ 10/04/2017/10/08/19 [id number] Ambulatory [address] Repository 10/04/2017/10/09/19 [id number] Ambulatory [address] Repository 09/30/2017 [id number] Inpatient [address] [place] [address] Encounter 3WRoom: System [id number]: Repository [id number] 09/19/2017/10/01/19 [id number] [place], Inpatient Stephan[place] 18 [place] Encounter [facility] ding:PCURoom Repository : RQH288Rqu: 1 09/19/2017 [id number] [place], Ambulatory BMSBuilding: [place]em BMS.[facility] Repository 09/19/2017 [id number] [place], Ambulatory BMSBuilding: Stephania [place]em BMS.[facility] Repository 09/19/2017 [id number] [place], Ambulatory BMSBuilding: Stephania Ghasem BMS.[facility] Repository 09/19/2017 [id number] [place], Ambulatory BMSBuilding: Stephania Ghasem BMS.[facility] Repository 09/19/2017 [id number] [place], Ambulatory BMSBuilding: [place] BMS.[facility] Repository 09/19/2017 [id number] [place], Ambulatory BMSBuilding: [place] BMS.[facility] Repository 09/19/2017 [id number] [place], Ambulatory BMSBuilding: Stephania Ghasem BMS.[facility] Repository 09/19/2017 [id number] [place], Ambulatory BMSBuilding: Stephania Ghasem BMS.[facility] Repository 09/19/2017 [id number] [place], Ambulatory BMSBuilding: [place] BMS.[facility] Repository 09/19/2017 [id number] [place], Ambulatory BMSBuilding: [place] BMS.[facility] Repository 09/19/2017 [id number] [place], Ambulatory BMSBuilding: [place] [facility]MS.[facility] Repository 09/19/2017 [id number] [place], Ambulatory BMSBuilding: Stephania Ghasem [facility]MS.[facility] Repository 09/19/2017/10/01/19 [id number] Ambulatory BMSBuilding: Stephania 18 [facility] Repository 07/24/2017/07/26/19 [id number] Ambulatory [address] Repository 06/21/2017 [id number] [facility] Rep[facility] ng:SLOAN PAYERS PAYERS ENCOUNTER GUARANTOR PAYER SUBSCRIBER SOURCE 02/22/2018 STEPHANIE L [id number] Primary STEPHANIE L [place] Insurance:[place]HEMP[place] SCHEIBEDOB: [place] Number: [id number] Hospital 686[address]Jct: (330 [id number] Repository [phone] () tive Date:5375-61-20VQ [address] [place] [address] 13674WH: 02/22/2018 Secondary NOT GIVENUNK Stephania Insurance:SELF PAY [facility] Number: Effective Repository Date:2018-02-22 02/11/2018 STEPHANIE L [id number] Primary STE[place]ANIE L [place] Insurance:[place]HEMP[place] SCHEIBEDOB: [place] Number: [id number] Hospital 92152Jwl: (330 [id number] Repository [phone] () tive Date:2461-70-31ZI [id number] [place] [address] 40991MN: 02/11/2018 Secondary NOT GIVENUNK [place] Insurance:SELF PAY [facility] Number: Effective Repository Date:2018-02-11 02/09/2018 STEPHANIE L [id number] Primary STEPHANIE L Stephan[place] Insurance:ANTHEMP[place] SCHEIBEDOB: [place] Number: [id number] Hospital [address]Ywz: (330 [id number] Repository [phone] () tive Date:1088-59-68BO [address] [place] [address] 34216VI: 02/09/2018 Secondary NOT GIVENUNK Stephania Insurance:SELF PAY [facility] Number: Effective Repository Date:2018-02-09 01/31/2018 STEPHANIE [id number] Primary [facility] OTHERPolicy Number: Repository [id number]: 330 [id number] [phone] (HP) tive Date: [id number] [place] [address] 08793FZ: 01/02/2018 STEPHANIE L [id number] Primary STEPHANIE L [facility] Insurance:ANTHEMPoli SCHEIBEDOB: [place] Number: [id number] Hospital 295[address]Vza: 330 [id number] Repository [phone] () tive Date:[id number] [address]VL: 01/02/2018 Secondary NOT GIVENUNK Stephania Insurance:SELF PAY [facility] Number: Effective Repository Date:2017-10-07 12/30/2017 STEPHANIE L [id number] Primary [facility] Insurance:ANTHEMPoli SCHEIBEDOB: [place] Number: [id number] Hospital 8[address]Xfc: 330 [id number] Repository [phone] () tive Date:[id number] [address]ZP: 12/30/2017 Secondary NOT GIVENUNK Stephania Insurance:SELF PAY [facility] Number: Effective Repository Date:2017-12-30 12/27/2017 STEPHANIE [id number] Primary [facility] Insurance:[place], [place] OTHERPolicy Number: Repository [id number]: 330 [id number] [phone] (HP) tive Date:[address], [place] [address]VV: 12/13/2017 STEPHANIE [id number] [facility] Insurance:[place] OTHERPolicy Number: Repository [id number]: (330) [id number] (HP) tive Date:[address] [place], [place] [address]RS: 11/15/2017 STEPHANIE [id number] [facility] Insurance:[place] OTHERPolicy Number: Repository [id number]: (330) [id number] (HP) tive Date: [id number] [place] [address]86[address]UC: 10/04/2017 STEPHANIE [id number] [facility] Insurance:[place] OTHERPolicy Number: Repository [id number]: (330) [id number] (HP) tive Date:[facility] [id number] [place] [address] 80016EW: 09/30/2017 Stephanie ScheibeDOB: Primary Stephanie [facility] Insurance:[place] ScheibeDOB: [facility] Blue [employer] Blue [id number] Repository [place], [place] ShieldPolicy Number: [id number]: (330) Effective Date: 46 (HP) 09/19/2017 STEPHANIE L [id number] Primary STEPHANIE [facility] Insurance:ANTHEMPoli [place]HEIB[place] Number: [id number] [facility] 06167Pcg: (330) [id number] Repository [phone] (HP) tive Date:3870-42-86QU [address] [place] [address] 43582RV: 09/19/2017 Secondary NOT GIVENUNK Stephania Insurance:SELF PAY [facility] Number: Effective Repository Date:2017-09-19 09/19/2017 STEPHANIE L [id number] Primary STEPHANIE L [place] Insurance:ANTHEMPoli [facility]HEIBEDOB[facility] [place] Number: [id number] Hospital 85975Euj: 330 [id number] Repository [phone] (HP) tive Date:5832-51-96XQ [address] [place] [address] 61964XQ: 09/19/2017 Secondary NOT GIVENUNK Stephania Insurance:SELF PAY [facility] Number: Effective Repository Date:2017-09-19 09/19/2017 STEPHANIE L [id number] Primary STEPHANIE L Stephania [place] Insurance:ANTHEMPoli [place]HE[place] Number: [id number] [facility] 75613Quq: 330 [id number] Repository [phone] (HP) tive Date:1593-41-49IC [address] [place] [address] 76143CT: 09/19/2017 Secondary NOT GIVENUNK Stephania Insurance:SELF PAY [facility] Number: Effective Repository Date:2017-09-19 09/19/2017 STEPHANIE L [id number] Primary STEPHANIE L Stephania [place] Insurance:ANTHEMPoli [place]HE[place]EDOB[place] Number: [id number] Hospital 12164Xyr: 330 [id number] Repository [phone] (HP) tive Date:8227-79-34IS [address] [place] [address] 57666IP: 09/19/2017 Secondary NOT GIVENUNK Stephania Insurance:SELF PAY [facility] Number: Effective Repository Date:2017-09-19 09/19/2017 STEPHANIE L [id number] Primary STEPHANIE L Stephania [place] Insurance:ANTHEMPoli SCHEIBEDOB: [facility] [place] Number: [id number] Hospital 28860Rxt: (330) [id number] Repository [phone] (HP) tive Date:9827-11-36GH [address] [place] [address] 80902EN: 09/19/2017 Secondary NOT GIVENUNK [place] Insurance:SELF PAY [facility] Hospital Number: Effective Repository Date:2017-09-19 09/19/2017 STEPHANIE L [id number] Primary STEPHANIE L Stephania [place] Insurance:ANTHEMPoli SCHEIBEDOB: [facility] [place] Number: [id number] Hospital 33683Jku: (330) [id number] Repository [phone] (HP) tive Date:7260-34-20RI [address] [place] [address] 33335JP: 09/19/2017 Secondary NOT GIVENUNK [place] Insurance:SELF PAY [facility] Number: Effective Repository Date:2017-09-19 09/19/2017 STEPHANIE L [id number] Primary STEPHANIE L [place] Insurance:ANTHEMPoli SCHEIBEDOB: [facility] [place] Number: [id number] Hospital 43584Tpy: (330) [id number] Repository [phone] (HP) tive Date:1621-83-67HB [address] [place] [address] 54189YY: 09/19/2017 Secondary NOT GIVENUNK [place] Insurance:SELF PAY [facility] Number: Effective Repository Date:2017-09-19 09/19/2017 STEPHANIE L [id number] Primary STEPHANIE L Stephania [place] Insurance:ANTHEMPoli [place]HEIBEDOB: [facility] [place] Number: [id number] Hospital 61306Ung: (330) [id number] Repository [phone] (HP) tive Date:4660-10-90XB [address] [place] [address] 88263UX: 09/19/2017 Secondary NOT GIVENUNK [place] Insurance:SELF PAY [facility] Hospital Number: Effective Repository Date:2017-09-19 09/19/2017 STEPHANIE L [id number] Primary STEPHANIE L Stephania [place] Insurance:ANTHEMPoli [place]OB[facility] [place] Number: [id number] Hospital 65242Lnj: 330 [id number] Repository [phone] (HP) tive Date:2433-13-54DK [address] [place] [address] 81804CC: 09/19/2017 Secondary NOT GIVENUNK [place] Insurance:SELF PAY [facility] Number: Effective Repository Date:2017-09-19 09/19/2017 STEPHANIE L [id number] Primary STEPHANIE L [place] Insurance:ANTHEMPoli SCHEIBEDOB: [facility] [place] Number: [id number] Hospital 59822Qql: (330) [id number] Repository [phone] (HP) tive Date:9097-96-52ZU [address] [place] [address] 40394BH: 09/19/2017 Secondary NOT GIVENUNK Stephania Insurance:SELF PAY [facility] Number: Effective Repository Date:2017-09-19 09/19/2017 STEPHANIE L [id number] Primary STEPHANIE L Stephania [place] Insurance:ANTHEMPoli SCHEIBEDOB: [facility] [place] Number: [id number] Hospital 16185Pne: (330 [id number] Repository [phone] (HP) tive Date:2510-17-67MR [address] [place] [address] 21693EJ: 09/19/2017 Secondary NOT GIVENUNK Stephania Insurance:SELF PAY [facility] Number: Effective Repository Date:2017-09-19 09/19/2017 STEPHANIE L [id number] Primary STEPHANIE L Stephan[place] Insurance:ANTHEMPoli [place]OB[place] [facility] [place] Number: [id number] Hospital 14538Arn: (330) [id number] Repository [phone] (HP) tive Date:6536-21-73UR [address] [place] [address] [place] 65659BT: 09/19/2017 Secondary NOT GIVENUNK Stephania Insurance:SELF PAY [facility] Number: Effective Repository Date:2017-09-19 09/19/2017 STEPHANIE L [id number] Primary STEPHANIE L [place] Insurance:ANTHEMPoli [place]: [place] Number: [id number] Hospital 09045Wdl: (330) [id number] Repository [phone] (HP) tive Date:4792-89-60VF [address] [place] [address] [place] 13839PB: 09/19/2017 Secondary NOT GIVENUNK Stephania Insurance:[facility]LF [facility]Y [facility] Effective Repository Date:2017-09-19 09/19/2017 STEPHANIE L [id number] Primary STEPHANIE L Stephania [place] Insurance:ANTHEMPoli [place]HE[place]OB[place] Number: [id number] Hospital 21238Uwu: (330) [id number] Repository [phone] (HP) tive Date:0391-64-25PM [address] [place] [address] [place] [address]BJ: 09/19/2017 Secondary NOT GIVENUNK Stephania Insurance:SELF PAY [facility] Hospital Number: Effective Repository Date:2017-09-19 06/21/2017 STEPHANIE [id number] Primary [facility]IE [facility] [place] Insurance:[facility] [place] Number: Repository 78145Dod: (330) [id number] [phone] (HP) tive Date: [address] [place] [address] [place] [address]KT:
== END 2018-02-09 15:24 | disposition home or self-care (01) ==
PROVIDERS: Emergency Provider Emergency Medicine; Family Provider Internal Medicine; PCP Internal Medicine
DX: R51 Headache (principal); D68.51 Activated protein C resistance; R00.1 Bradycardia, unspecified; G90.50 Complex regional pain syndrome I, unspecified; F41.9 Anxiety disorder, unspecified; Z79.52 Long term (current) use of systemic steroids; Z79.82 Long term (current) use of aspirin; Z79.899 Other long term (current) drug therapy; Z79.01 Long term (current) use of anticoagulants; Z86.73 Personal history of transient ischemic attack (TIA), and cerebral infarction without residual deficits; Z87.891 Personal history of nicotine dependence
CPT/HCPCS: 70450; 80048; 82962; 85025; 85610; 93005; 96361; 96374; 96375; 99284; J7030; A4216; J2405

== ENCOUNTER 2018-02-11 19:01 | Emergency (ER) | payer BC, SELFPAY ==
[2018-02-11 19:03] VITALS: BP 115/75; PULSE 49; RESP 15; TEMP 37.1; O2SAT 98; BMI 37.3
--- NOTE | 2018-02-11 19:34 | ED.RN ---
RN CALLED FOR EKG, PULLED OLD EKGS FOR
--- NOTE | 2018-02-11 19:42 | EKG12_ITS ---
Test Reason : STROKE Blood Pressure : / mmHG Vent. Rate : 050 BPM Atrial Rate : 050 BPM P-R Int : 116 ms QRS Dur : 078 ms QT Int : 428 ms P-R-T Axes : 008 002 040 degrees QTc Int : 390 ms Sinus bradycardia Minimal voltage criteria for LVH, may be normal variant Borderline ECG Confirmed by ANDRE BRENNAN, LINDA ([id number]), associate entertainment editor LEANDRA WALTERS ([id number]) on 02/14/2018 1:47:23 PM Referred By: WELLINGTON Confirmed By:LINDA POWELL MD
--- NOTE | 2018-02-11 19:42 | CT_ITS ---
STUDY: CT BRAIN WITHOUT CONTRAST REASON FOR EXAM: Female, 57 years old. Headache RADIATION DOSAGE (If Supplied By Facility): CTDIvol = ( 44.99 ) mGy, DLP = ( 812.98 ) mGycm TECHNIQUE: Transaxial CT imaging of the brain was performed without administration of intravenous contrast material. Individualized dose optimization techniques were used for this CT. COMPARISON: February 09, 2018 FINDINGS: Ventricles: Normal for patient's age. White matter and Cortex: Normal appearance of the white matter tracts. There is asymmetric hypodensity in the right frontal lobe. Basal ganglia and Thalami: Normal in appearance. Brainstem: Normal in appearance. Cerebellum: Normal in appearance. Vascular: No significant abnormalities. No evidence of acute hemorrhage. No evidence of acute ischemia. No evidence of mass effect. Soft tissues: Unremarkable. Bones: Unremarkable. Sinuses: Unremarkable. CT/Brain/Head without Contrast IMPRESSION: No acute intracranial abnormalities. Encephalomalacia is again seen in the right frontal lobe consistent with old ischemia. Electronically Signed: Olivia Jimenez MD at 21:04 EST Tel Direct: [phone], Service support ,
[2018-02-11 20:03] LABS: Absolute Lymphocyte Count 3.43 X10^3/ul (0.83-4.51); Absolute Neutrophil Count 10.8 X10^3/uL (2.0-7.7); Basophil# 0.02 X10^3/uL; Basophil% 0.1 % (0-1); Eosinophil# 0.05 X10^3/uL; Eosinophils% 0.3 % (0-5); Hematocrit 44.2 % (37-47); Hemoglobin 14.4 g/dl (12.0-15.0); Lymphocyte # 3.43 X10^3/ul (4.0); Lymphocyte % 21.9 % (19-41); Mean Corp Hgb Conc 32.6 g/gl (32-36); Mean Corpuscular Hgb 29.1 pg (27.0-32.0); Mean Corpuscular Volume 89.5 fL (81-99); Mean Platelet Vol. 9.6 fl (6.2-12.0); Monocyte# 1.15 X10^3/uL; Monocyte% 7.3 % (0-10); Neutrophil # 10.83 X10^3/uL (2.7-7.7); Neutrophil % 69.1 % (47-70); Platelet Count 320 K/mm3 (150-450); RBC Distribution Width CV 13.7 % (11.6-14.6); Red Blood Count 4.94 M/mm3 (4.2-5.4); White Blood Count 15.7 K/mm3 (4.4-11.0)
[2018-02-11 20:04] LABS: POSITIVE COUNT NO; POSITIVE DIFFERENTIAL NO; POSITIVE MORPHOLOGY NO
[2018-02-11 20:07] LABS: International Normalized Ratio 2.6; Prothrombin Time (Protime)PT. 28.3 SECONDS (11.7-14.9)
[2018-02-11 20:20] LABS: Anion Gap 8 (5-15); BUN 17 mg/dL (7-18); BUN/Creat Ratio 17.7 RATIO (10-20); Calcium,Total 8.7 mg/dL (8.5-10.1); Chloride 96 mmol/L (98-107); Creatinine, Serum 0.96 mg/dL (0.55-1.02); EST Glomerular Filtration Rate 64 mL/min (>60); Est Glom Filt Rate - Afr Amer 77 mL/min (>60); Estimated Creatinine Clearance 59.58 ml/min; Glucose 120 mg/dL (74-106); Potassium 3.7 mmol/L (3.5-5.1); Sodium Level 132 mmol/L (136-145)
[2018-02-11] MEDS: Morphine 4 MG/ML Syringe IV ×2 (20:25→22:30)
[2018-02-11] MEDS: 0.9% Normal Saline 1,000 ML 15 ML IV (20:25)
[2018-02-11] MEDS: Ondansetron 4 MG/2 ML Vial IV ×2 (20:25→22:30)
[2018-02-11 20:26] VITALS: BP 128/83; PULSE 48; RESP 14; O2SAT 95
--- NOTE | 2018-02-11 21:32 | CT_ITS ---
STUDY: CTA OF THE BRAIN REASON FOR EXAM: Female, 57 years old. Headache, left numbness RADIATION DOSAGE (If Supplied By Facility): CTDIvol = ( 22.15 ) mGy, DLP = ( 724.90 ) mGycm TECHNIQUE: CT angiography was performed with a multi-detector CT scanner. Data acquisition was obtained from the skull base through the vertex following intravenous administration of 100 ml of Isovue 370. MIP images were reconstructed from the axial data set. Post-processing of the angiographic images was performed, with multiplanar reformation and 3D reconstruction. Individualized dose optimization techniques were used for this CT. COMPARISON: Head CT without contrast from the same day, head CTA dated September 20, 2017 FINDINGS: Petrous carotid arteries: Normal in appearance. Right cavernous carotid artery: Marked narrowing of the supraclinoid segment of the right ICA with faint visualization of contrast. Left cavernous carotid artery: Normal in appearance. Right A1 segment: Small but patent. Left A1 segment: Normal. ACOM: Normal. Bilateral A2 segments: Normal in appearance. Right M1 and M2 segments: Small but patent. Left M1 and M2 segments: Normal in appearance. Right PCOM: Normal in appearance. Left PCOM: Normal in appearance. Vertebral arteries: Normal distal vertebral arteries. Basilar artery: Normal in appearance. Superior cerebellar arteries: Normal in appearance. Right CUPROUS CHLORIDE HELPER: Normal in appearance. Left CUPROUS CHLORIDE HELPER: Normal in appearance. No demonstrated aneurysm. Intracranial: No demonstrated enhancement of the visualized brain. CT/CTA Head W/WO Contrast IMPRESSION: There has been progressive narrowing and virtual nonvisualization of the supraclinoid segment of the right ICA. There is likely a string sign present. The right A1 segment and right MCA branches are likely filling primarily across the anterior communicating artery. The right A1 segment and the right middle cerebral artery branches are patent but are smaller in size than compared to the prior study. Although there is no noticeable difference in the ischemic changes on the right side, there may be new ischemia superimposed on the old ischemia. N.B. : The above information has been verbally conveyed by Olivia Jimenez MD to Olivia Cavazos MD, on 02/11/2018 23:08:52 (ET). Electronically Signed: Olivia Jimenez MD at 23:14 EST Tel Direct: [phone], Service support ,
--- NOTE | 2018-02-11 21:32 | CT_ITS ---
STUDY: CTA NECK WITH CONTRAST REASON FOR EXAM: Female, 57 years old. Left numbness, history of prior right cerebrovascular accident RADIATION DOSAGE (If Supplied By Facility): CTDIvol = ( 22.15 ) mGy, DLP = ( 724.90 ) mGycm TECHNIQUE: CT angiography with multi-detector data acquisition was performed from the aortic arch to the skull base following intravenous administration of 100 ml of Isovue 370 contrast. MIP images were reconstructed from the axial data set. Post-processing of the angiographic images was performed, with multiplanar reformation and 3D reconstruction. Individualized dose optimization techniques were used for this CT. COMPARISON: September 20, 2017 FINDINGS: Aortic arch: Normal in appearance. Normal origins of the brachiocephalic, left common carotid, and left subclavian arteries. Right carotid arteries: CCA: Normal in appearance. Carotid bulb: Trace calcified plaque. ICA: Normal in appearance. Normal visualized cervical portion of the right internal carotid artery. ECA: Normal in appearance. Left carotid arteries: CCA: Normal in appearance. Carotid bulb: Normal in appearance. ICA: Normal in appearance. Normal visualized cervical portion of the right internal carotid artery. ECA: Normal in appearance. Vertebral arteries: The vertebral arteries show no significant abnormalities. Possible mild bullous changes in the lung apices. There are no abnormal masses or enlarged lymph nodes in the upper mediastinum or throughout the neck. The thyroid is normal in appearance. The submandibular glands and parotid glands are symmetric and normal in appearance. The sinuses and mastoid air cells are well aerated. There are moderate degenerative changes in the cervical spine. CT/CTA Neck W/WO Contrast IMPRESSION: There is no significant vascular disease in the cervical carotid arteries or vertebral arteries. Electronically Signed: Olivia Jimenez MD at 23:17 EST Tel Direct: [phone], Service support ,
[2018-02-11 21:46] VITALS: BP 116/84; PULSE 44; RESP 16; O2SAT 97
[2018-02-12 00:20] VITALS: BP 132/75; PULSE 44; RESP 16; O2SAT 94
--- NOTE | 2018-02-12 00:44 | ED.VISSUMM ---
- ER Visit Summary Date of Service: 02/12/18 Chief Complaint: Weakness and facial droop History of Present Illness: The patient is a 57 F who was seen in the ED on February 09 for headache and blurred vision out of her left eye. CT was unremarkable. NIH was 0. Headache was treated. Patient states her left eye became more painful and she was seen by ophthalmology. She was found to have closed angle glaucoma. There was no relief of pressure with drops or laser. She had to have fluid drained from her left eye. Following this she had a near syncopal episode with noted left facial droop and left arm weakness. Symptoms resolved rather quickly. Patient did have a stroke with similar symptoms in August of this year. At that time she was found to have narrowing of her carotid that is currently being treated with prednisone and Bactrim. She was also found to have factor V Leiden and is currently on Coumadin. Physical Examination: Vital signs are unremarkable the bradycardia with a heart rate of 49. Head neck examination does reveal small some conjunctival hemorrhage in the medial portion of the left eye. Heart is bradycardic and regular. Lung sounds are clear. Abdomen is soft nontender. NIH score on arrival is 0. Test Results: EKG is sinus bradycardia at 50 bpm. No sign of acute ischemia. CBC was a white count of 15.7 but the patient has been on prednisone. Differential is normal. Chemistry studies are significant only for a sodium of 132. INR is therapeutic at 2.6. Troponin is 0.091. Noncontrast head CT shows no acute abnormalities. I spoke with the patient about admission for MRI, however she has leads in her back from a prior spinal stimulator and cannot have an MRI. CTA of the head and neck is then pursued. I was called by the radiologist with report from her CTA head. There is progressive narrowing and virtual nonvisualization of the supraclinoid segment of the right ICA. There is likely a string sign present. This has progressed further when compared to prior study from August. CTA of the neck shows no significant vascular disease in the carotid or vertebral arteries. Emergency Department Course and Treatment: Patient was given morphine and Zofran for headache. She is to continue the eyedrops given to her by her sharepoint analyst. Test results are discussed with the patient and at bedside. I spoke with neurology at [facility] and patient will be transferred there for further evaluation. Patient is currently on prednisone, but has not been able to tolerate her medications yesterday or today secondary to nausea. She is given a dose of IV Solu-Medrol. Treatment Plan: [] Disposition: Transfer Impression: 1. TIA 2. Supraclinoid right ICA narrowing 3. Acute closed angle glaucoma This note was generated with [employer] dictation software. It may contain incorrect words, spelling, and punctuation that were not noted in review of the chart prior to signing ED Disposition - Plan for ED Patient: Chief Complaint: Neuro S/Sx Referrals: Sammi Rowley MD [Primary Care Provider] -
--- NOTE | 2018-02-12 00:49 | ED.DCSUM_ITS ---
- ER Visit Summary Date of Service: 02/12/18 Chief Complaint: Weakness and facial droop History of Present Illness: The patient is a 57 F who was seen in the ED on February 09 for headache and blurred vision out of her left eye. CT was unremarkable. NIH was 0. Headache was treated. Patient states her left eye became more painful and she was seen by ophthalmology. She was found to have closed angle glaucoma. There was no relief of pressure with drops or laser. She had to have fluid drained from her left eye. Following this she had a near syncopal episode with noted left facial droop and left arm weakness. Symptoms resolved rather quickly. Patient did have a stroke with similar symptoms in August of this year. At that time she was found to have narrowing of her carotid that is currently being treated with prednisone and Bactrim. She was also found to have factor V Leiden and is currently on Coumadin. Physical Examination: Vital signs are unremarkable the bradycardia with a heart rate of 49. Head neck examination does reveal small some conjunctival hemorrhage in the medial portion of the left eye. Heart is bradycardic and regular. Lung sounds are clear. Abdomen is soft nontender. NIH score on arrival is 0. Test Results: EKG is sinus bradycardia at 50 bpm. No sign of acute ischemia. CBC was a white count of 15.7 but the patient has been on prednisone. Differential is normal. Chemistry studies are significant only for a sodium of 132. INR is therapeutic at 2.6. Troponin is 0.091. Noncontrast head CT shows no acute abnormalities. I spoke with the patient about admission for MRI, however she has leads in her back from a prior spinal stimulator and cannot have an MRI. CTA of the head and neck is then pursued. I was called by the radiologist with report from her CTA head. There is progressive narrowing and virtual nonvisualization of the supraclinoid segment of the right ICA. There is likely a string sign present. This has progressed further when compared to prior study from August. CTA of the neck shows no significant vascular disease in the carotid or vertebral arteries. Emergency Department Course and Treatment: Patient was given morphine and Zofran for headache. She is to continue the eyedrops given to her by her conference planner. Test results are discussed with the patient and at bedside. I spoke with neurology at [facility] and patient will be transferred there for further evaluation. Patient is currently on prednisone, but has not been able to tolerate her medications yesterday or today secondary to nausea. She is given a dose of IV Solu-Medrol. Treatment Plan: [] Disposition: Transfer Impression: 1. TIA 2. Supraclinoid right ICA narrowing 3. Acute closed angle glaucoma This note was generated with [employer] dictation software. It may contain incorrect words, spelling, and punctuation that were not noted in review of the chart prior to signing ED Disposition - Plan for ED Patient: Chief Complaint: Neuro S/Sx Referrals: Sammi Rowley MD [Primary Care Provider] -
[2018-02-12] MEDS: MethylPREDNISolone 125 MG/2 ML Vial IV (01:25)
[2018-02-12 01:27] VITALS: BP 135/89; PULSE 44; RESP 16; O2SAT 99
--- NOTE | 2018-02-12 03:26 | ED.RN ---
HOME MED EYE GTT TAKEN PER PT
[2018-02-12] MEDS: Morphine 4 MG/ML Syringe IV (03:32)
[2018-02-12 03:34] VITALS: BP 132/85; PULSE 50; RESP 14; O2SAT 96
--- OUTSIDE RECORDS SUMMARY | 2018-05-16 06:20 | XMS RPT_ITS ---
:1960 Author Organization OHIP Support Name Relationship Address Phone LISA Unavailable [address] + [place] [address] ALBERTO MOOREY Unavailable [address] + [place] [address] LISA Unavailable [address] + [place] [address] ALBERTO MOOREY Unavailable [address] + [place] [address] LISA Unavailable [address] + [place] [address] ALBERTO MOOREY Unavailable [address] + [place] [address] LISA Unavailable [address] + [place] [address] ALBERTO MOOREY Unavailable [address] + [place] [address] LISA Unavailable [address] + [place] [address] TERESA DAVIAN Unavailable [address] + [place] [address] Alberto Lowryy Unavailable Unavailable + LISA Unavailable [address] + [place] [address] ALBERTO MOOERY Unavailable [address] + [place] [address] LISA Unavailable [address] + [place] [address] ALBERTO MOOREY Unavailable [address] + [place] [address] LISA Unavailable [address] + [place] [address] TERESA DAVIAN Unavailable [address] + [place] [address] LISA Unavailable [address] + [place] [address] TERESA DAVIAN Unavailable [address] + [place] [address] LISA Unavailable [address] + [place] [address] ALBERTO MOOREY Unavailable [address] + [place] [address] LISA Unavailable [address] + [place] [address] ALBERTO MOOREY Unavailable [address] + [place] [address] LISA Unavailable [address] + [place] [address] ALBERTO MOOREY Unavailable [address] + [place] [address] LISA Unavailable [address] + [place] [address] ALBERTO MOOREY Unavailable [address] + [place] [address] LISA Unavailable [address] + [place] [address] ALBERTO MOOREY Unavailable [address] + [place] [address] LISA Unavailable [address] + [place] [address] ALBERTO MOOREY Unavailable [address] + [place] [address] LISA Unavailable [address] + [place] [address] ALBERTO MOOREY Unavailable [address] + [place] [address] LISA Unavailable [address] + [place] [address] DAVIAN MOORE Unavailable [address] + [place] [address] LISA Unavailable [address] + [place] [address] DAVIAN MOORE Unavailable [address] + [place] [address] LISA Unavailable [address] + [place] [address] DAVIAN MOROE Unavailable [address] + [place] [address] Care Team Providers Name Role Phone [facility] Unavailable Olivia Whitley Attending Unavailable Ashelfah, Ghasem Admitting Unavailable Ashelfah, Ghasem Attending Unavailable [facility] Unavailable Otis Boucher Consulting Unavailable Ashelfah, Ghasem Consulting Unavailable Ashelfah, Ghasem Admitting Unavailable Ashelfah, Ghasem Attending Unavailable [facility] Unavailable Gurmeet Boucheran Consulting Unavailable Ashelfah, Ghasem Consulting Unavailable Ashelfah, Ghasem Admitting Unavailable Ashelfah, Ghasem Attending Unavailable [facility] Unavailable Gurmeet Boucheran Consulting Unavailable Ashelfah, Ghasem Consulting Unavailable [facility] Unavailable Ashelfah, Ghasem Admitting Unavailable Otis Boucher Consulting Unavailable Petar Villalta Attending Unavailable [facility] Unavailable Bernardo Barton Attending Unavailable [facility] Unavailable Olivia Whitley Attending Unavailable Ashelfah, Ghasem Admitting Unavailable Ashelfah, Ghasem Attending Unavailable [facility] Unavailable Gurmeet Boucheran Consulting Unavailable Ashelfah, Ghasem Consulting Unavailable Ashelfah, Ghasem Admitting Unavailable Ashelfah, Ghasem Attending Unavailable [facility] Unavailable Gurmeet Boucheran Consulting Unavailable Ashelfah, Ghasem Consulting Unavailable Ashelfah, Ghasem Admitting Unavailable Ashelfah, Ghasem Attending Unavailable [facility] Unavailable Ashelfah, Ghasem Consulting Unavailable Jose Lopez Attending Unavailable Ashelfah, Ghasem Referring Unavailable Ashelfah, Ghasem Admitting Unavailable Petar Villalta Attending Unavailable Ganta, Anuj Primary Care Unavailable Boucher, Otis Consulting Unavailable Tereletsky, Petar Consulting Unavailable Ashelfah, Ghasem Admitting Unavailable Ganta, Anuj Primary Care Unavailable Citlaly, Otis Consulting Unavailable SemenTrisha sarkar Attending Unavailable Eliazar, Cande Consulting Unavailable Ashelfah, Ghasem Admitting Unavailable Ganta, Anuj Primary Care Unavailable Citlaly, Otis Consulting Unavailable SemenTrisha sarkar Attending Unavailable Eliazar, Cande Consulting Unavailable Ashelfah, Ghasem Admitting Unavailable KitIsak rosales Attending Unavailable Ganta, Anuj Primary Care Unavailable Gurmeet Boucheran Consulting Unavailable KitIsak rosales Consulting Unavailable Ashelfah, Ghasem Admitting Unavailable KitIsak rosales Attending Unavailable Ganta, Anuj Primary Care Unavailable Citlaly, Otis Consulting Unavailable Kittoe, Isak Consulting Unavailable Ashelfah, Ghasem Admitting Unavailable Ashelfah, Ghasem Attending Unavailable Ganta, Anuj Primary Care Unavailable Boucher, Otis Consulting Unavailable Ashelfah, Ghasem Consulting Unavailable Ganta, Anuj Attending Unavailable Ganta, Anuj Referring Unavailable Ganta, Anuj Primary Care Unavailable Berhane Luke Attending Unavailable Ganta, Anuj Primary Care Unavailable Berhane Luke Referring Unavailable GANTA, ANUJ Attending Unavailable BERHANE LUKE ([facility]) Attending Unavailable GANTA, ANUJ Referring Unavailable GANTA, ANUJ Referring Unavailable MASCIJOSE Attending Unavailable BERHANE LUKE ([facility]) Referring Unavailable GANTA, ANUJ Referring Unavailable GANTA, ANUJ Referring Unavailable BERHANE LUKE ([facility]) Attending Unavailable GANTA, ANUJ Referring Unavailable BERHANE LUKE ([facility]) Referring Unavailable GANTA, ANUJ Referring Unavailable BERHANE LUKE ([facility]) Referring Unavailable DWAYNE HOLT Attending Unavailable TAMARA WADSWORTH Referring Unavailable JOE CERVANTES Attending Unavailable BERHANE LUKE ([facility]) Referring Unavailable GANTA, ANUJ Attending Unavailable GANTA, ANUJ Referring Unavailable GANTA, ANUJ Referring Unavailable GANTA, ANUJ Referring Unavailable GANTA, ANUJ Referring Unavailable DAKSHA ALEGRE Attending Unavailable GANTA, ANUJ Referring Unavailable ANNE MARIE MACDONALD Attending Unavailable DWAYNE HOLT Referring Unavailable HARSHAD, JOSE Murphy Attending Unavailable JOSE BELTRAN Referring Unavailable DWAYNE HOLT Admitting Unavailable DWAYNE HOLT Attending Unavailable DWAYNE HOLT Referring Unavailable MASCI, JOSE Murphy Referring Unavailable MASCI, JOSE A Referring Unavailable GANTA, ANUJ Referring Unavailable GANTA, ANUJ Referring Unavailable MASCI, JOSE A Referring Unavailable WILL, JAIME Admitting Unavailable WILL, JAIME Attending Unavailable OLIVIA WHITLEY Referring Unavailable WILL, JAIME Referring Unavailable WILL, JAIME Referring Unavailable WILL, JAIME Referring Unavailable MASCI, JOSE A Referring Unavailable HAJJ DAKSHA KRISHNAMURTHY Referring Unavailable MASCI, JOSE A Referring Unavailable GANTA, ANUJ Attending Unavailable YANY WHEAT ([facility]) Referring Unavailable GANTA, ANUJ Referring Unavailable GANTA, ANUJ Referring Unavailable GANTA, ANUJ Attending Unavailable GANTA, ANUJ Referring Unavailable GANTA, ANUJ Referring Unavailable PROVIDER, UNKNOWN Referring Unavailable UNKNOWN, PROVIDER [...] SOURCE 03/06/2018 Active Viral infection, NA Active [facility] unspecified / Clinic Main B34.9(ICD-10) [place] Repository 03/06/2018 Active Other muscle spasm NA Active [facility] / M62.838(ICD-10) [facility] Main [place] Rep[facility] 03/06/2018 Active Wheezing / NA Active [facility] R06.2(ICD-10) [facility] [place] Rep[facility] 02/20/2018 Active Cerebral arteritis, NA Active [facility] not elsewhere [facility] Main classified / [place] I67.7(ICD-10) Repository 02/20/2018 Active Generalized NA Active [facility] enlarged lymph [facility] Main nodes / [place] R59.1(ICD-10) Repository 02/20/2018 Active 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 [facility] (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) drug Clinic Main therapy / [place] Z79.899(ICD-10) Repository 10/11/2017 Active Other specified NA Active [facility] abnormal [facility] Main immunological [place] findings in serum / Repository R76.8(ICD-10) 01/03/2018 Active Occlusion and DWAYNE HOLT Active [facility] stenosis of right [facility] Main carotid artery / [place] I65.21(ICD-10) Repository 01/03/2018 Active Arteritis, DWAYNE HOLT Active [place] unspecified / [facility] Main I77.6(ICD-10) [place] Rep[facility] 01/02/2018 Unknown Z86.73 - Personal Berhane Luke Active [place] [facility] attack (TIA), and Repository cerebral infarction without residual deficits / Z86.73(ICD-10) 01/01/2018 Active Unspecified NA Active [facility] disorder of [facility] Main circulatory system [place] / I99.9(ICD-10) Repository 01/01/2018 Active Encounter for NA Active [facility] examination for [facility] Main normal comparison [place] and control in Repository clinical research program / Z00.6(ICD-10) 11/27/2017 Active Encounter for ANUJ HANSON Active [facility] screening mammogram Clinic Main for malignant [place] neoplasm of breast Repository / Z12.31(ICD-10) 11/27/2017 Active Cerebral aneurysm, ANUJ HANSON Active [facility] nonruptured / Clinic Main I67.1(ICD-10) [place] Rep[facility] 11/27/2017 Active Personal history of ANUJ HANSON Active [facility] transient ischemic [facility] Main attack (TIA), and [place] cerebral infarction Repository without residual deficits / Z86.73(ICD-10) 11/27/2017 Active Encounter for ANUJ HANSON Active [facility] screening for [facility] Main malignant neoplasm [place] of colon / Repository Z12.11(ICD-10) 10/11/2017 Active 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 / Clinic Main D68.51(ICD-10) [facility] Rep[facility] 10/02/2017 Active Cerebral NA Active [facility] infarction, [facility] unspecified / [place] I63.9(ICD-10) Repository 10/10/2017 Active Encounter for NA Active [facility] general adult [facility] Main medical examination [place] without abnormal Repository findings / Z00.00(ICD-10) 09/30/2017 Admitting Cerebral ОЛЬГА, Active [facility] Diagnosis infarction, [facility] unspecified / Repository I63.9(ICD-10) 09/30/2017 Admitting Activated protein C ОЛЬГА, Active [facility] resistance / [facility] D68.51(ICD-10) Repository 09/30/2017 Admitting 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, Active [facility] Diagnosis pain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 / G90.529(ICD-10) 09/30/2017 Admitting Personal history of ОЛЬГА Active Screen Diagnosis nicotine dependence [facility] / Z87.891(ICD-10) Repository 09/30/2017 Admitting detention (current) ОЛЬГА Active Screen Diagnosis use of aspirin / [facility] Z79.82(ICD-10) Repository 09/30/2017 Admitting Anxiety disorder, ОЛЬГА Active Screen Diagnosis unspecified / [facility] F41.9(ICD-10) Repository 09/30/2017 Admitting Dorsalgia, ОЛЬГА Active Screen Diagnosis unspecified / [facility] M54.9(ICD-10) Repository 09/30/2017 Admitting Other chronic pain ОЛЬГА [employer] Diagnosis / G89.29(ICD-10) [facility] Repository 09/30/2017 Admitting Essential (primary) ОЛЬГА [employer] Diagnosis hypertension / [facility] I10(ICD-10) Repository 09/30/2017 Admitting Hyperlipidemia, ОЛЬГА [employer] Diagnosis unspecified / [facility] E78.5(ICD-10) Repository 09/30/2017 Admitting Personal history of ОЛЬГА [employer] Diagnosis other venous [facility] thrombosis and Repository embolism / Z86.718(ICD-10) 09/30/2017 Admitting Obesity, ОЛЬГА [employer] Diagnosis unspecified / [facility] E66.9(ICD-10) Repository 09/30/2017 Admitting Body mass index ОЛЬГА [employer] Diagnosis (BMI) 34.0-34.9, [facility] adult / Repository Z68.34(ICD-10) 07/24/2017 Active Unknown / ANUJ HANSON Active [facility] UNK(Unknown) [facility] Repository 06/21/2017 Admitting Unknown / Imani Active [facility] Medical diagnosis UNK(Unknown) [facility] Repository PROCEDURES PROCEDURES No Procedure Records FoundRESULTS RESULTS PROGRESS Observed: 03/14/2018 Status: COMPLETED Source: [place] 1:30 PM [facility] HNO ID: [id number] Author: Jose Beltran Service: (none) Author Type: Physician Type: Progress Notes Filed: 03/14/2018 4:34 PM Note Text: Agree with plan as outlined below. Jose Beltran, DO PROGRESS Observed: 03/14/2018 Status: COMPLETED Source: [place] 11:44 AM [facility] HNO ID: [id number] Author: Arlene Pacheco RN Service: (none) Author Type: (none) Type: Progress Notes Filed: 03/14/2018 11:45 AM Note Text: patient had inr completed at [facility] patients inr is 2.0 (patients inr range [...] INR. PROGRESS Observed: 03/14/2018 Status: COMPLETED Source: [place] 8:31 AM [facility] HNO ID: [id number] Author: Anuj Hanson Service: (none) Author Type: [...] Diagnosis Date - DVT (deep venous thrombosis) ([facility]) 2009 - Dysthymic disorder Depression (non-psychotic) - [...] - ICD9: 434.91, ICD10: I63.9 3. Vasculitis, ELECTRONIC HEAT SEAL OPERATOR (HCC) - ICD9: 447.6, ICD10: I77.6 Ok to increased the cellcept 3 tablets 2 times a day as per Dr Tommy Krishnamurthy 4. Anxiety and depression - ICD9: 300.00, 311, ICD10: F41.9, F32.9 See hpi ANUJ HANSON MD CNOV Observed: 03/14/2018 Status: COMPLETED Source: [place] 8:00 AM [facility] Office Visit ([facility]) STEPHANIE MOORE ([id number]) 1960 F Date Time Provider Department 03/14/18 [...] - ICD9: 434.91, ICD10: I63.9 3. Vasculitis, ELECTRONIC HEAT SEAL OPERATOR (HCC) - ICD9: 447.6, ICD10: I77.6 Ok [...] of Mental Disorders (DSM-5), published by the [place] [employer]. How are anxiety disorders treated? [...] your doctor or pharmacist before taking any cssu-tvm-iaergwm medicines or herbal remedies. Many contain chemicals that can increase anxiety symptoms. ? Exercise daily and eat a healthy, balanced diet. ? Seek counseling and support after a traumatic or disturbing experience. Referring Provider: ANUJ HANSON [[id number]] Allergies As of Date: 03/14/2018 Noted Allergy [...] Other Visit Diagnoses:Ischemic stroke of frontal lobe ([facility]) [I63.9] Vasculitis, ELECTRONIC HEAT SEAL OPERATOR (HCC) [I77.6] Anxiety and depression [F41.9, F32.9] [...] lower limb [G90*INVALID FOR* More... NEURALGIA/NEURITIS NOS [CAR1989] INVALID FOR* MONONEURITIS LEG NOS [G57.90] INVALID [...] II, BMI 35-39.9 [E66.9] INVALID FOR* Vasculitis, ELECTRONIC HEAT SEAL OPERATOR (HCC) [I77.6] INVALID FOR* More... Stenosis of [...] of Mental Disorders (DSM-5), published by the [place] [employer]. How are anxiety disorders treated? [...] your doctor or pharmacist before taking any lojc-xml-ynnypnx medicines or herbal remedies. Many contain chemicals that can increase anxiety symptoms. ? Exercise daily and eat a healthy, balanced diet. ? Seek counseling and support after a traumatic or disturbing experience. Encounter Status:Closed by ANUJ HANSON MD on 03/18/18 PROGRESS Observed: 03/06/2018 Status: COMPLETED Source: [place] 2:45 PM [facility] HNO ID: [id number] Author: Arlene Pacheco RN Service: (none) Author Type: (none) Type: Progress Notes Filed: 03/06/2018 2:47 PM Note Text: PATIENT NOTIFIED OF INFORMATION BASIC METABOLIC PANL Collected: 03/06/2018 Status: F Source: [place] 11:52 AM [facility] TYPE CODE TESTS RESULT OUT OF REFERENCE UNITS RANGE LAB GLU 74-99 mg/dL High Glucose 154 Result Comment: The [place] [employer] Association (ADA) provides guidance for cutoff [...] Standards of Medical Care in Diabetes 2016, [place] [employer]. Diabetes Care. 2016.39(Suppl 1). LAB [...] Performed By: #### BMP, MG1, CBCDIF #### [facility] [employer] [address] [place], [place] [id number] MAGNESIUM Collected: 03/06/2018 Status: F Source: [place] 11:52 [facility] REPOSITORY TYPE CODE TESTS RESULT OUT OF REFERENCE UNITS RANGE LAB MG 1.7-2.3 mg/dL Magnesium 2.3 Performed By: #### BMP, MG1, CBCDIF #### [facility] [employer] [address] [place], [place] [address] CBC AND DIFFERENTIAL Collected: 03/06/2018 Status: F Source: [place] 11:52 [facility] REPOSITORY TYPE CODE TESTS RESULT OUT [...] Abs Low Lymph 0.55 LAB AMONO % Swisher% 4.4 LAB AAMONO <0.87 k/uL Abs Swisher 0.46 LAB AEOS % Eosin% 0.0 LAB [...] Performed By: #### BMP, MG1, CBCDIF #### [facility] [address] [place] [id number] XR CHEST 2V FRONTAL/LAT Observed: 03/06/2018 Status: F Source: [place] 11:34 AM [facility] * * *Final Report* * * [...] IMPRESSION: Stable chest. No acute cardiopulmonary process. 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 Recheck INR as scheduled 03/14/2018. Jose Beltran DO PROGRESS Observed: 03/06/2018 Status: COMPLETED Source: [place] 11:28 AM [facility] HNO ID: [id number] Author: Pricila Mcleod Service: (none) Author Type: [...] AM PROGRESS Observed: 03/06/2018 Status: COMPLETED Source: [place] 10:39 AM [facility] HNO ID: [id number] Author: Anuj Hanson Service: (none) Author Type: [...] MD PROGRESS Observed: 03/06/2018 Status: COMPLETED Source: [place] 10:04 AM [facility] HNO ID: [id number] Author: Arlene Pacheco RN Service: (none) Author Type: (none) Type: Progress Notes Filed: 03/06/2018 10:05 AM Note Text: patient had inr completed at [facility] patients inr is 4.0 (patients inr range [...] 03/14/18 CNOV Observed: 03/06/2018 Status: COMPLETED Source: [place] 9:40 AM [facility] Office Visit ([facility]) STEPHANIE MOORE ([id number]) 1960 F Date Time Provider Department 03/06/18 [...] ANUJ HANSON MD Referring Provider: YANY WHEAT ([facility]) [[id number]] Allergies As of Date: 03/06/2018 Noted Allergy [...] [B34.9] Wheezing [R06.2] Anxiety [F41.9] Order(s):INR (POC) [6054998] Order #: [id number]. [id number] + DIFF [SQCBCDIF] Order #: [id number] FUTURE XR CHEST 2V FRONTAL/LAT [[id number]] Order #: [id number] FUTURE albuterol HFA (PROVENTIL HFA, VENTOLIN HFA) 90 mcg/actuation inhalerInhale 2 Puffs as instructed every 4 hours as needed.Disp: 1 EachRfl: 1 BASIC METABOLIC PNL [SQBMP] Order #: [id number] FUTURE MAGNESIUM BLD [SQMG1] Order #: [id number] FUTURE busPIRone (BUSPAR) 5 mg tabletTake 1 [...] lower limb [G90*INVALID FOR* More... NEURALGIA/NEURITIS NOS [PDL5099] INVALID FOR* MONONEURITIS LEG NOS [G57.90] INVALID [...] II, BMI 35-39.9 [E66.9] INVALID FOR* Vasculitis, ELECTRONIC HEAT SEAL OPERATOR (HCC) [I77.6] INVALID FOR* More... Stenosis of [...] 03/06/18 OLIVIA Observed: 03/06/2018 Status: COMPLETED Source: [place] 9:30 AM [facility] MO[facility] ([id number]) 1960 F Date Time Provider Department [facility]18 [facility] During your visit today, we recorded [...] lower limb [G90*INVALID FOR* More... NEURALGIA/NEURITIS NOS [BAR5494] INVALID FOR* MONONEURITIS LEG NOS [G57.90] INVALID [...] II, BMI 35-39.9 [E66.9] INVALID FOR* Vasculitis, ELECTRONIC HEAT SEAL OPERATOR (HCC) [I77.6] INVALID FOR* More... Stenosis of right internal carotid artery [I65.*INVALID FOR* More... TIA (transient ischemic attack) [G45.9] INVALID FOR* More... Acute angle-closure glaucoma of left eye [H40.2*INVALID FOR* More... Sinus bradycardia [R00.1] INVALID FOR* More... Leukocytosis [D72.829] INVALID FOR*02/14/2018 More... Encounter Status:Closed by JOHN OLSEN MA on 03/07/18 12 LEAD ELECTROCARDIOGRAM Observed: 02/24/2018 Status: F Source: [place] 12:36 PM [facility] Cardiovascular Services [address] [place] [address] 12 Lead EKG 02/22/18 1135 MR#: [id number] Acct: [id number] Name: STEPHANIE MOORE Dayanna Rep #: [id number] : 1960 57 From: Jose Lopez MD [...] : 401 ms Sinus rhythm with short LA Otherwise normal ECG Confirmed by ANTONIO BRENNAN, JOSE ([id number]), fan mail editor GRACE WALTERS ([id number]) on 02/24/2018 12:36:17 PM Referred By: CHAD Confirmed By:JOSE LOPEZ MD 02/24/18 1236 Date Jose Lopez MD CC: Anuj Hanson MD; Bernardo Barton MD Signed DISCHARGE INSTRUCTION Observed: 02/22/2018 Status: F Source: [place] 12:44 PM [facility] Medical Records Department [address] [place] [address] Discharge Instruction 02/22/18 1242 MR#: [id number] Acct: [id number] Name: ELAINE MOORENadiya Alan Rep #: [id number] : 1960 57 From: Bernardo Barton MD [...] your Primary Care Provider. Call [facility] ([phone]) or report to the closest Emergency Room. Call 911 if necessary. 02/22/18 1244 <Electronically signed by Bernardo Barton MD> Date Bernardo Barton MD Cosigner Signature (If Indicated): Date CC: Anuj Hanson MD EMERGENCY DEPARTMENT Observed: 02/22/2018 Status: F Source: [place] SUMMARY 12:42 PM [facility] REPOSITORY [facility] Medical Records Department [address] [place] [address] Emergency Department Summary 02/22/18 1203 MR#: [id number] Acct: [id number] Name: STEPHANIE MOORE Rep #: [id number] : 1960 57 From: Bernardo Barton MD [...] back pain This note was generated with [facility] dictation software. It may contain incorrect words, [...] your Primary Care Provider. Call [facility] ([phone]) or report to the closest Emergency Room. Call 911 if necessary. 02/22/18 1242 <Electronically signed by Bernardo Barton MD> Date Bernardo Barton MD Cosigner Signature (If Indicated): Date CC: Anuj Hanson MD CBC W/DIFF, AUTOMATED Collected: 02/22/2018 Status: C Source: [place] 11:46 AM [facility] REPOSITORY TYPE CODE TESTS RESULT [...] June ivis Performed By: #### L100.0100 #### [facility] [address] [place], [address] PROTHROMBIN TIME W/INR Collected: 02/22/2018 Status: F Source: [place] 11:46 AM [facility] REPOSITORY TYPE CODE TESTS RESULT OUT OF REFERENCE UNITS RANGE LAB L300.4150 11.7-14.9 SECONDS High PROTIME 37.5 LAB L300.4200 High alert INR 3.8 Result Comment: RESULTS CALLED TO RAOUL BELLE 02/22/18 1202 Keyana Oliver. REPORT READ BACK BY SAME. Performed By: #### L300.3900 #### [facility] [address] [place], [address] BASIC METABOLIC Collected: 02/22/2018 Status: F Source: [place] PROFILE (BMP) 11:46 AM [facility] REPOSITORY TYPE CODE TESTS RESULT [...] 11 Performed By: #### L500.2500, L501.4010 #### [facility] [address] [place], [address] TROPONIN-I Collected: 02/22/2018 Status: F Source: [place] 11:46 AM [facility] REPOSITORY TYPE CODE TESTS RESULT OUT OF RANGE REFERENCE UNITS LAB L501.4010 <0.045 ng/mL High 0.086 TROPONIN-I Result Comment: TROPONIN-I EXPECTED VALUES <0.045 Negative 0.045 - 0.590 Consistent with Cardiac Damage > OR = 0.600 Critical Value Not every elevated troponin is indicative of [place]. These values should be used with clinical judgement in examining the patient's clinical picture for diagnosis. To establish a diagnosis of [place] versus myocardial injury, there must be a demonstrated rise and/or fall in the troponin values, in addition to ischemic symptoms, EKG changes, new regional wall motion abnormality, and/or angiographical evidence. PLEASE NOTE: REFERENCE RANGES EDITED 17 Performed By: #### L500.2500, L501.4010 #### [facility] [address] [place], [address] CTA CHEST W/WO Observed: 02/22/2018 Status: F Source: [place] CONTRAST 11:38 AM [facility] REPOSITORY [facility] Imaging Services [address] [facility] [place] [address] CTA Chest W/WO Contrast MR#: [id number] Acct: [id number] Name: STEPHANIE MOORE Rep #: [id number] : 1960 F 57 From: Jaleel Boston MD PCP: Anuj Hanson MD Status: REG ER Study: CTA Chest W/WO Contrast Date of Exam: 02/22/18 Exam# [id number] Ordering Dr: Bernardo Barton MD STUDY: CTA [...] CC: Anuj Hanson MD; Bernardo Barton MD Bad Work Gatherer: Signed PROGRESS Observed: 02/22/2018 Status: COMPLETED Source: [place] 11:02 AM [facility] HNO ID: [id number] Author: Yany Wheat Service: (none) Author Type: [...] Diagnosis Date - DVT (deep venous thrombosis) ([facility]) 2009 - Dysthymic disorder Depression (non-psychotic) - [...] Report called to attending ED physician and [facility]. PAM MeyersOV Observed: 02/22/2018 Status: COMPLETED Source: [place] 10:45 AM [facility] REPOSIT[facility] Office Visit (WSTR) SOLISSTEPHANIE Steen Dayanna ([id number]) 1960 F Date Time Provider Department 02/22/18 10:45 AM YANY WHEAT (JOSE) [facility] During your visit today, we recorded the [...] Diagnosis Date - DVT (deep venous thrombosis) ([facility]) 2009 - Dysthymic disorder Depression (non-psychotic) - [...] Report called to attending ED physician and [facility]. Yany Wheat APRN.ELEMENTARY READING TUTOR Referring Provider: SELF [200] Allergies As of Date: 02/22/2018 Noted Allergy Reaction OPIOIDS - MORPHINE ANALOGUES 08/29/2000 Comments: vicodin PENTAZOCINE 08/29/2000 Comments: talwin PROPOXYPHENE 08/29/2000 Comments: daradonayet steri strips and paper tape [Othe*12/30/2006 TALCECE (PENTAZOCINE-ACETAMINOPHE*08/20/2005 1 - Mental Status Change Date Reviewed: 02/22/2018 Reviewed by: Yany ([facility]) Jarret - Fully Assessed Reason for Visit: [...] lower limb [G90*INVALID FOR* More... 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 Stenosis of right internal carotid artery [I65.*INVALID FOR* More... TIA (transient ischemic attack) [G45.9] INVALID FOR* More... Acute angle-closure glaucoma of left eye [H40.2*INVALID FOR* More... Sinus bradycardia [R00.1] INVALID FOR* More... Leukocytosis [D72.829] INVALID FOR*02/14/2018 More... Encounter Status:Closed by YANY WHEAT on 02/22/18 OT D/C SUMMARY Observed: 02/20/2018 Status: F Source: [place] 1:51 PM [facility] REPOSITORY [facility] Occupational Therapy [facility] [place] [address] / REHABILITATION SERVICES DISCHARGE SUMMARY MR#: [id number] Acct: [id number] Name: STEPHANIE MOORE Rep #: [id number] : 1960 57 From: Joanna Arambula Referring [...] 5/5. wrist flexion: R 5/5/, L 5/5. 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 lateral pinch : [...] Resume Hobbies Goal:: Stephanie to increased L profile trimmer to within 10 lbs of R profile trimmer to promote manipulation of self care items [...] multiple tests needing to be completed at [facility]. She has progressed in all measurements since initial evaluation. She will be d/c'd as medical complications remain but she is hoping to return to light duty work within 2-3 weeks. - D/C Information If there are questions or concerns regarding this patient's occupational therapy, please fell free to call me at [phone]. Thank you for the referral of this patient. Sincerely, Joanna Arambula <Electronically signed by Joanna Arambula > 02/20/18 1351 CC: LESLIE Luke; Anuj Hanson MD KMB Signed PROGRESS Observed: 02/20/2018 Status: COMPLETED Source: [place] 11:37 AM [facility] HNO ID: [id number] Author: Jose Beltran Service: (none) Author Type: Physician Type: Progress Notes Filed: 02/20/2018 5:14 PM Note Text: Agree with plan as outlined below. Jose Beltran, DO COMP METABOLIC PANEL Collected: 02/20/2018 Status: F Source: [place] 9:25 AM [facility] REPOS[facility] TYPE CODE TESTS RESULT OUT OF REFERENCE UNITS RANGE LAB TP 6.3-8.0 g/dL Protein, Total 6.3 LAB ALB 3.9-4.9 g/dL Albumin 3.9 LAB CA 8.5-10.2 mg/dL Calcium, Total 8.5 LAB TBIL 0.2-1.3 mg/dL Bilirubin, Total 0.2 LAB ALKP 34-123 U/L Alkaline Phosphatase 84 LAB AST 13-35 U/L AST 23 LAB GLU 74-99 mg/dL Glucose 94 Result Comment: The [place] Diabetes Association (ADA) provides guidance for cutoff [...] Standards of Medical Care in Diabetes 2016, [place] Diabetes Association. Diabetes Care. 2016.39(Suppl 1). LAB [...] GFR. Performed By: #### CMP, CBCDIF #### [facility] [address] [place], [place] [address] CBC AND DIFFERENTIAL Collected: 02/20/2018 Status: F Source: [place] 9:25 AM [facility] RE[facility] TYPE CODE TESTS RESULT OUT OF [...] k/uL Abs Lymph 2.08 LAB AMONO % Swisher% 6.0 LAB AAMONO <0.87 k/uL Abs Swisher High 1.12 LAB AEOS % Eosin% 0.0 LAB AAEOS <0.46 k/uL Abs Eosin 0.00 LAB ABASO % Baso% 0.0 LAB AABASO <0.11 k/uL Abs Baso 0.00 LAB AMYELO % Myelo% 2.6 LAB LFTIMI Left Shift Present LAB OVAIMI Ovalocytes Few LAB POLIMI Polychromasia Slight LAB PLTEST Platelet Estimate Platelet estimate adequate LAB DTYP DTYPE Manual Diff Performed By: #### CMP, CBCDIF #### [facility] [address] [place], [place] [address] PROGRESS Observed: 02/20/2018 Status: COMPLETED Source: [place] 9:18 AM [facility] HNO ID: [id number] Author: Arlene Pacheco RN Service: (none) Author Type: (none) Type: Progress Notes Filed: 02/20/2018 9:19 AM Note Text: patient had inr completed at [facility] patients inr is 2.9 (patients inr range [...] INR. JOSEN Observed: 02/20/2018 Status: COMPLETED Source: [place] 12:00 AM [facility] RE[facility] Telephone (RHEUMN) STEPHANIE MOORE ([id number]) 1960 F Date Time Provider Department 02/20/18 [...] below.. Patient can be reached at : [phone] (home) Preeti Chávez APRN.CNP 02/20/2018 5:03 PM Signed Spoke with pt. Reiterated instructions and med timing (from previous phone encounter) Reviewed available labs. Pt to update next wk PAM Ibarra APRN.CNP 02/26/2018 5:13 PM Signed From 02/19/18 phone encounter that does not seem to appear in [employer]. However able to find when I do [...] call office ? ? ? Preeti Chávez, STOCK PREPARATION OPERATOR.ELEMENTARY READING TUTOR Allergies As of Date: 02/20/2018 Noted Allergy [...] lower limb [G90*INVALID FOR* More... 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 Stenosis of right internal carotid artery [I65.*INVALID FOR* More... TIA (transient ischemic attack) [G45.9] INVALID FOR* More... Acute angle-closure glaucoma of left eye [H40.2*INVALID FOR* More... Sinus bradycardia [R00.1] INVALID FOR* More... Leukocytosis [D72.829] INVALID FOR*02/14/2018 More... Encounter Status:Closed by PREETI CHÁVEZ CNP on 02/20/18 PROGRESS Observed: 02/14/2018 Status: COMPLETED Source: [place] 5:00 PM [facility] HNO ID: [id number] Author: Jaime Solis Service: Radiology Author Type: Physician Type: Progress Notes Filed: 02/14/2018 6:33 PM Note Text: [facility] STAFF PHYSICIAN NOTE OF PERSONAL INVOLVEMENT IN [...] Outside CT angiogram compared with October 2017 [facility] CT angiogram: No significant changes in [...] 2018 CNDS Observed: 02/14/2018 Status: COMPLETED Source: [place] 4:25 PM [facility] RE[facility]IT[facility] ID: [id number] Author: Jaime Solis Service: Neurology Stroke Author [...] headache with blurred vision 02/08, presented to [place] ED and discharged, later went to Ophthalmology 02/09 and found to have acute angle closure glaucoma. Taken for procedure to reduce intraocular pressure. During the procedure she developed hypotension and had a near-syncopal episode; L facial droop and LUE weakness noted afterwards. Patient states she never noticed a new facial asymmetry and she may have residual deficit from prior stroke. Patient brought to [facility] for further evaluation. Patient has known supraclinoid [...] cardiolipin Ab is 31. Patient seen by Web Feeder Dr. Tommy Krishnamurthy 01/01 who felt that the patient should be started on immunosuppresion for possible vasculitis; patient started on prednisone taper (currently takes 20mg daily) and plan was to start Cellcept (unclear if this ever occurred). Seen by Stroke Neurologist Dr. Macdonald 01/01 and was continued on ASA 81, warfarin. Patient had returned to baseline by the time she arrived at [facility]; she was reporting improvement in headache [...] microemboli suggestive of right to left shunt. [place] LEOPOLDO report from 10/01/2017 states: Atrial septum: [...] Dept Phone 02/14/2018 11:00 AM GAM[facility] Molecular [phone] 02/20/2018 9:00 AM ANTICOAG [facility] WSTR [facility] STEPHANIA [phone] 03/14/2018 8:00 AM ANUJ HANSON [facility] STEPHANIA [phone] 03/27/2018 9:40 AM ASSESSMENT NEUS CEREBROVASC [place] NEUR S [facility] [phone] 03/27/2018 10:00 AM ANNE MARIE MACDONALD NEUR S [facility] [phone] This patient?s risk for 30-day readmission is [...] this patient. SIGNATURE: Shira Beyer DO PAGER: [phone] DATE: February 12, 2018 TIME: 2:22 PM CASE MANAGEM Observed: 02/14/2018 Status: COMPLETED Source: [place] 2:32 PM [facility] REPOS[facility] HNO ID: [id number] Author: Joyce Madison (Sw) Service: Care Management Author Type: Rate And Cost Analyst Type: Care Mgt Progress Note Filed: 02/14/2018 [...] any weekend questions or needs, contact pager #[phone]. SIGNATURE: GI Ramirez PATIENT NAME: Stephanie Moore DATE: February 14, 2018 TIME: 2:32 PM PAGER/CONTACT #: [phone] 12 LEAD ELECTROCARDIOGRAM Observed: 02/14/2018 Status: F Source: [place] 1:47 PM [facility] REPOSITORY [facility] Cardiovascular Services [address] [place] [id number] 12 Lead EKG 02/11/18 1906 MR#: [id number] Acct: [id number] Name: STEPHANIE MOORE Rep #: [id number] : 1960 57 From: Mayank Langford MD [...] ECG Confirmed by ANDRE BRENNAN, MAYANK ([id number]), fan mail editor GRACE WALTERS ([id number]) on 02/14/2018 1:47:23 PM Referred By: WELL[place] Confirmed By:MAYANK LANGFORD MD 02/14/18 1347 Date Mayank Langford MD CC: Anuj Hanson MD; Olivia Whitley MD Signed NM BRAIN SPECT Observed: 02/14/2018 Status: F Source: [place] 1:14 PM [facility] * * *Final Report* * * [...] CEREBROVASCULAR RESERVE IN THE RIGHT MCA TERRITORY. Bad Work Gatherer: PSCB Transcribe Date/Time: Feb 14 2018 2:11P Dictated by : CLARY JAIN MD This examination was interpreted and the report reviewed and electronically signed by: CLARY JAIN MD on Feb 14 2018 2:15PM EST [id number] PROGRESS Observed: 02/14/2018 Status: COMPLETED Source: [place] 12:09 PM [facility] REPOS[facility] HNO ID: [id number] Author: Jillian Bauer (Rt) Service: (none) Author Type: Edger Feeder Type: Progress Notes Filed: 02/14/2018 12:25 PM [...] safety can be found using this link: [email or web address] SIGNATURE: RT Lizette PATIENT NAME: Stephanie Moore DATE: February 14, 2018 TIME: 12:09 PM PAGER/CONTACT #: [phone] Collected: 02/14/2018 Status: F Source: [place] 5:47 AM [facility]POS[facility] TYPE CODE TESTS RESULT OUT OF [...] Performed By: #### CBC, PT, CMP #### [facility] [address] [place], [place] [address] PROTIME Collected: 02/14/2018 Status: F Source: [place] 5:47 AM [facility] REPOS[facility] TYPE CODE TESTS RESULT OUT OF RANGE REFERENCE UNITS LAB PSEC 9.7-13.0 sec High PT Sec 14.1 LAB INR 0.9-1.3 High PT INR 1.4 Result Comment: Vitamin K Antagonist (VKA) Therapeutic Range: INR 2 to 3 (Target INR of 2.5) Note: For patients treated with VKA drugs, such as warfarin, the [place] College [employer] Physicians 2012 Guideline recommends [...] Chest 2012, 141:7S-47S Katya RA, et al. [facility] 2017, 70: 252-289 Performed By: #### CBC, PT, CMP #### [facility] [address] [place], [place] [address] COMP METABOLIC PANEL Collected: 02/14/2018 Status: F Source: [place] 5:47 AM [facility] REPOSITORY TYPE CODE TESTS RESULT OUT OF REFERENCE UNITS RANGE LAB TP 6.3-8.0 g/dL Low Protein, Total 6.1 LAB ALB 3.9-4.9 g/dL Low Albumin 3.4 LAB CA 8.5-10.2 mg/dL Calcium, Total 8.6 LAB TBIL 0.2-1.3 mg/dL Bilirubin, Total 0.7 LAB ALKP 34-123 U/L Alkaline Phosphatase 60 LAB AST 13-35 U/L AST 33 LAB GLU 74-99 mg/dL Glucose 78 Result Comment: The [place] Diabetes Association (ADA) provides guidance for cutoff [...] Standards of Medical Care in Diabetes 2016, [place] Diabetes [employer]. Diabetes Care. 2016.39(Suppl 1). LAB [...] Performed By: #### CBC, PT, CMP #### [facility] [employer] [facility] [address] [place] [id number] CONSULT Observed: 02/13/2018 Status: COMPLETED Source: [place] 5:45 PM [facility] HNO ID: [id number] Author: Dave Washington Service: Ophthalmology Author Type: [...] as given to her by her outside electric accounting machine operator and follow up with him in 1 [...] PM PROGRESS Observed: 02/13/2018 Status: COMPLETED Source: [place] 5:42 PM [facility] HNO ID: [id number] Author: Dave Washington Service: (none) Author Type: [...] as given to her by her outside electric accounting machine operator and follow up with him in 1 [...] WO IVCON Observed: 02/13/2018 Status: F Source: [place] 4:29 PM [facility] * * *Final Report* * * DATE OF EXAM: Feb 13 2018 4:29PM [facility] 0504 - CT BRAIN WO IVCON / [...] findings as described including remote infarcts, unchanged. Bad Work Gatherer: SAM Transcribe Date/Time: Feb 13 2018 4:35P Dictated by : KEE ROGERS MD This examination was interpreted and the report reviewed and electronically signed by: KEE ROGERS MD on Feb 13 2018 4:39PM EST [id number] PROGRESS Observed: 02/13/2018 Status: COMPLETED Source: [place] 4:24 PM [facility] HNO ID: [id number] Author: Isabella Abrams Service: (none) Author Type: [...] MGT INIT Observed: 02/13/2018 Status: COMPLETED Source: [facility] 4:22 PM [facility] HNO ID: [id number] Author: Joyce Madison (Sw) Service: Care Management Author Type: Rate And Cost Analyst Type: Care Mgt Initial Assessment Filed: 02/13/2018 4:26 PM Note Text: CARE MANAGEMENT: ASSESSMENT AND DISCHARGE PLAN SERVICE DATE: 02/13/2018 SERVICE TIME: 3:30pm PRIMARY CARE PHYSICIAN: ANUJ HANSON MD ADMISSION STATUS: Inpatient Needs Prior to Discharge: To Be Determined 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 No Advance Directive: Current Advance Directive: None Wreath Machine Tender Attempted to Assist with AD Completion: Yes [...] None Has the Patient Been in a Prison Facility in the Past 30 days? No SOCIAL: Living Arrangement: Home Lives With: Spouse Financial Resources: Disabled Primary Contact: Extended Emergency Contact Information Primary Emergency Contact: Davian Moore [place] Relation: Spouse Supportive: Yes Other Important Patient [...] 0 I feel financially burdened by my [id number]-[id number] expenses for my prescription medication: Disagree completely [...] home, dx TIA. 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 Per medical team. Pt anticipated to d/c home tomorrow with no PAC skilled needs identified. Pt has d/c transportation home via family auto. Floor CM to continue to follow. For any questions or concerns please contact the listed below. SIGNATURE: GI Ramirez PATIENT NAME: Stephanie Moore DATE: February 13, 2018 TIME: 4:22 PM PAGER/CONTACT #: [phone] PLAN OF CARE Observed: 02/13/2018 Status: COMPLETED Source: [place] 2:48 PM [facility] HNO ID: [id number] Author: Mata Lopes (Marketing Communications Manager) Service: (none) Author Type: (none) Type: Plan of Care Filed: 02/13/2018 2:48 PM Note Text: PRINCIPAL STATISTICAL SCIENTIST BEDSIDE DELIVERY SURVEY 1. Patient to use [facility] Bedside Delivery - YES 2. If fax, patient would like us to fax prescriptions to Pharmacy of choice a. Pharmacy: b. Location: c. Phone: 3. Insurance card on file - YES 4. Credit card for payment - N/A No prescriptions yet. Please page [phone] upon discharge. PROGRESS Observed: 02/13/2018 Status: COMPLETED Source: [place] 9:05 AM [facility] HNO ID: [id number] Author: Jaime Solis Service: Neurology Stroke Author [...] known R ICA stenosis, is transferred from [place] ED for further management. Currently back to [...] 13, 2018 TIME: 9:05 AM PAGER/CONTACT #: [phone] ------- [facility] STAFF PHYSICIAN NOTE OF PERSONAL INVOLVEMENT IN [...] Outside CT angiogram compared with October [address] [facility] [address] angiogram: No significant changes in [...] 2018 PROTIME Collected: 02/13/2018 Status: F Source: [place] 6:46 AM [facility] TYPE CODE TESTS RESULT OUT OF RANGE REFERENCE UNITS LAB PSEC 9.7-13.0 sec High PT Sec 16.7 LAB INR 0.9-1.3 High PT INR 1.6 Result Comment: Vitamin K Antagonist (VKA) Therapeutic Range: INR 2 to 3 (Target INR of 2.5) Note: For patients treated with VKA drugs, such as warfarin, the [place] [employer] Chest [employer]icians 2012 Guideline recommends [...] Chest 2012, 141:7S-47S Katya RA, et al. [facility] 2017, 70: 252-289 Performed By: #### PT, CBC, CMP #### [facility] [employer] [facility] [address] [place], [place] [address] CBC Collected: 02/13/2018 Status: F Source: [place] 6:46 AM [facility] TYPE CODE TESTS RESULT OUT OF [...] Performed By: #### PT, CBC, CMP #### [facility] [employer] [facility] [address] [place], [place] [address] COMP METABOLIC PANEL Collected: 02/13/2018 Status: F Source: [place] 6:46 AM [facility] TYPE CODE TESTS RESULT OUT OF REFERENCE UNITS RANGE LAB TP 6.3-8.0 g/dL Low Protein, Total 6.2 LAB ALB 3.9-4.9 g/dL Low Albumin 3.5 LAB CA 8.5-10.2 mg/dL Low Calcium, Total 8.1 LAB TBIL 0.2-1.3 mg/dL Bilirubin, Total 0.5 LAB ALKP 34-123 U/L Alkaline Phosphatase 65 LAB AST 13-35 U/L AST 30 LAB GLU 74-99 mg/dL Glucose 83 Result Comment: The [place] Diabetes Association (ADA) provides guidance for cutoff [...] Standards of Medical Care in Diabetes 2016, [place] Diabetes Association. Diabetes Care. 2016.39(Suppl 1). LAB [...] Performed By: #### PT, CBC, CMP #### [facility] [address] [place] [address] NURSING PROG Observed: 02/13/2018 Status: COMPLETED Source: [place] 4:08 AM [facility] HNO ID: [id number] Author: Tara Davison (Rn) CLAYTON Jones Service: (none) Author Type: Registered Nurse Type: Nursing Progress Note Filed: 02/13/2018 4:32 AM Note Text: Nursing Progress Note Patient Name: Stephanie Moore Patient Location: [place] [id number] Daily Note: Pt heart rate ranges from 39-49 bpm. All other vital signs are stable. Pts states she feels okay. No signs of bradycardia. Pt refuses Methadone this PM. Educated with the med administration. 2STRK notified and advise to continue to monitor. This note was completed by: Tara Jones RN PLAN OF CARE Observed: 02/12/2018 Status: COMPLETED Source: [place] 4:56 PM [facility] HNO ID: [id number] Author: Valeriy Lara Service: Neurology Stroke Author Type: Resident Type: Plan of Care Filed: 02/12/2018 4:57 PM Note Text: NEUROLOGY PLAN OF CARE NOTE PATIENT NAME: Stephanie Moore DATE: 02/12/2018 Information about the spinal cord stimulator: - Spinal cord stimulator was removed > 10 years ago however some wires are still present - Device: SYNERGY EZ MODEL 7435 HAND-HELD SIGNATURE: Valeriy Lara MD PAGER:[phone] DATE of SERVICE: February 12, 2018 TIME of SERVICE: 4:56 PM CASE MGT INIT Observed: 02/12/2018 Status: COMPLETED Source: [facility] 4:07 PM [facility] HNO ID: [id number] Author: Joyce (Ariella Madison Service: Care Management Author Type: Rate And Cost Analyst Type: Care Mgt Initial Assessment Filed: 02/12/2018 [...] 12, 2018 TIME: 4:07 PM PAGER/CONTACT #: [phone] 12 LEAD ELECTROCARDIOGRAM Observed: 02/12/2018 Status: F Source: [place] 3:09 PM [facility] REPOSITORY [facility] Cardiovascular Services [address] [place] [address] 12 Lead EKG 02/09/18 1127 MR#: [id number] Acct: [id number] Name: STEPHANIE MOORE Rep #: [id number] : 1960 57 From: Mayank Langford MD [...] ECG Confirmed by MAYANK LANGFORD MD ([id number]), fan mail editor GRACE WALTERS ([id number]) on 02/12/2018 3:08:51 PM Referred By: WELLINGTON Confirmed By:MAYANK LANGFORD MD 02/12/18 1508 Date Mayank Langford MD CC: Anuj Hanson MD; Olivia Whitley MD Signed US TCD BUBBLE STUDY Observed: 02/12/2018 Status: F Source: [place] 11:11 AM [facility] RE[facility] * * *Final Report* * * DATE OF EXAM: Feb 12 2018 11:11AM [facility] - US TCD BUBBLE STUDY / [...] likely reflect the known severe disease proximally. Bad Work Gatherer: CARMEN Transcribe Date/Time: Feb 12 2018 11:18A Dictated by : SHIRA STOKES MD This examination was interpreted and the report reviewed and electronically signed by: SHIRA STOKES MD on Feb 12 2018 11:35AM EST [id number] PLAN OF CARE Observed: 02/12/2018 Status: COMPLETED Source: [place] 11:09 AM [facility] RE[facility] HNO ID: [id number] Author: Isak Eastman (Pharmacist) Service: Pharmacy Author Type: Pharmacist Type: Plan of Care Filed: 02/12/2018 2:12 PM Note Text: MEDICATION HISTORY AND MEDICATION RECONCILIATION Patient Name:Aurelia Moore : 1960 Source of history:Patient: Reliability of source: Appears reliable, clearly identified: Medication name, Pharmacy records: [facility] [place] and [facility] records Medication Nonadherence Identified: Pt notes she has not taken most of her medications since last week (Saturday or Saturday). Pt is poor historian, but pharmacy reports consistent fill history. The above information represents the best possible medication history: Yes Reconciliation completed? Yes All IRON WORKER medications addressed by LIP Medications DELETED from IRON WORKER List: ? Cyclobenzaprine (Flexeril) 10 mg - [...] taper and was taking 20 mg daily IRON WORKER, but has not taken her doses in a few days. Additional comments: N/A Allergies: ALLERGIES Allergen Reactions - Opioids - Morphine * vicodin - Pentazocine talwin - Propoxyphene darvacet - Steri Strips And Pa* - Talacen [Pentazocin* Mental Status Change Preferred Pharmacy: [address] [address] [facility]??- [phone] Current IRON WORKER Medications: Prior to Admission medications as of [...] needed for Pain. Pain Management Dr Bassett Yes predniSONE (DELTASONE) 20 mg tablet Patient [...] Medication pt is NOT TAKING Chanell Thomas (Hospital Account Manager) February 12, 2018 11:[address] BRAIN WO IVCON Observed: 02/12/2018 Status: F Source: [place] 10:17 AM [facility] * * *Final Report* * * DATE OF EXAM: Feb 12 2018 10:17AM [facility] 0504 - CT BRAIN WO IVCON / [...] MCA and KARLEY territories, not significantly changed. Bad Work Gatherer: PSCMichael Transcribe Date/Time: Feb 12 2018 10:29A Dictated by : JOSHUA SKELTON DO This examination was interpreted and the report reviewed and electronically signed by: CR SALGUERO MD on Feb 12 2018 11:15AM EST [id number] PROGRESS Observed: 02/12/2018 Status: COMPLETED Source: [place] 10:14 AM [facility] HNO ID: [id number] Author: ITALIA Zavala (Ct) Service: Radiology Author Type: Clinical Edger Feeder Type: Progress Notes Filed: 02/12/2018 10:17 AM [...] NURSING PROG Observed: 02/12/2018 Status: COMPLETED Source: [place] 9:14 AM [facility] HNO ID: [id number] Author: Cindy MosherRn) CLAYTON Sultana Service: (none) Author Type: Registered Nurse Type: Nursing Progress Note Filed: 02/12/2018 9:15 AM Note Text: Nursing Progress Note Patient Name: Stephanie Moore Patient Location: H060 021/H060-21 Pt refused AM dose of Methadone. Pt states, No pain, at this time. [id number] paged and notified. Will continue to monitor. This note was completed by: Cindy Sultana RN ECG COMPLETE W Observed: 02/12/2018 Status: F Source: [place] INTERPRETATION 8:55 AM [facility] REPOSITORY NAME : STEPHANIE MOORE PID : [id number] : 1960 Gender : Female Race : ORD : [id number] Procedure Date : Feb 12 2018 08:55:16 Edit Date : Feb 13 2018 11:01:56 Diagnosis:SINUS BRADYCARDIA OTHERWISE NORMAL ECG Confirmed by COOPER FENTON M.D. ([id number]) on 02/13/2018 10:48:20 AM Ventricular Rate : 52 BPM Atrial Rate : 52 BPM P-R Interval : 122 ms QRS Duration : 88 ms Q-T Interval : 438 ms QTC Calculation(Bezet) : 407 ms P Carlotta : 40 degrees R Carlotta : 26 degrees T Carlotta : 48 degrees Test Reason : Carotid Stenosis Location : 63 : H60 021 Overread By : COOPER FENTON M.D. Edited By : COOPER FENTON M.D. Referred By : OLIVIA WHITLEY Acquired by : Maame Ricardo PROTIME Collected: 02/12/2018 Status: F Source: [place] 7:05 AM [facility] TYPE CODE TESTS RESULT OUT OF RANGE REFERENCE UNITS LAB PSEC 9.7-13.0 sec High PT Sec 23.2 LAB INR 0.9-1.3 High PT INR 2.3 Result Comment: Vitamin K Antagonist (VKA) Therapeutic Range: INR 2 to 3 (Target INR of 2.5) Note: For patients treated with VKA drugs, such as warfarin, the [place] [employer] 2012 Guideline recommends [...] Chest 2012, 141:7S-47S Katya HERNANDEZ, et al. [facility] 2017, 70: 252-289 Performed By: #### PT, PTT, CMP, MG1, PHOS, CBCDIF #### [facility] [employer] [address] [place], [place] [address] APTT Collected: 02/12/2018 Status: F Source: [place] 7:05 [facility] REPOSITORY TYPE CODE TESTS RESULT OUT [...] laboratory APTT reagent in use throughout the [facility]. Performed By: #### PT, PTT, CMP, MG1, PHOS, CBCDIF #### [facility] [employer] [address] [place], [place] [address] COMP METABOLIC PANEL Collected: 02/12/2018 Status: F Source: [place] 7:05 [facility] REPOSITORY TYPE CODE TESTS RESULT OUT OF REFERENCE UNITS RANGE LAB TP 6.3-8.0 g/dL Protein, Total 7.2 LAB ALB 3.9-4.9 g/dL Albumin 4.3 LAB CA 8.5-10.2 mg/dL Calcium, Total 8.9 LAB TBIL 0.2-1.3 mg/dL Bilirubin, Total 0.6 LAB ALKP 34-123 U/L Alkaline Phosphatase 69 LAB AST 13-35 U/L AST High 37 LAB GLU 74-99 mg/dL Glucose High 165 Result Comment: The [place] Diabetes Association (ADA) provides guidance for cutoff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 by [facility]. See Compliance Statement B: [facility]/ Performed by [facility], [address] [place] [address] [id number] [email or web address], Eulogio Pro MD, Lab. Director Performed By: #### RTCSF, HSPCRC, VDRLCF, TOURT, OLIGO #### [facility] [address] [address] #### CVZVG, CACE, FTACSF #### [facility] [address] [address] [phone] OLIGOCLONAL BANDING Collected: 01/10/2018 Status: F Source: [place] 4:40 PM [facility] TYPE CODE TESTS RESULT OUT OF [...] Staff Reviewed Review by Shira Keller MD ([id number]) Performed By: #### RTCSF, HSPCRC, VDRLCF, TOURT, OLIGO #### [facility] [address] [address] #### CVZVG, CACE, FTACSF #### [facility] [employer] [address] [address] [phone] NURSING PROG Observed: 01/10/2018 Status: COMPLETED Source: [place] 4:30 PM [facility] HNO ID: [id number] Author: Glenis (Rn) CLAYTON Wren Service: (none) [...] ARCH AND Observed: 01/10/2018 Status: F Source: [place] THREE VESSEL 3:01 PM [facility] * * *Final Report* * * [...] TIME: 2:57 PM ATTENDING: Dwayne Holt MD GIZZARD SKIN REMOVER (FELLOW): Violette Baker MD, The procedure was performed by the the dental chairside assistant, and the attending personally supervised the entire procedure. The attending performed the following procedural activities: Diagnostic cerebral angiogram. ANGIOGRAPHY MATERIALS: Diagnostic catheter: 5 Monegasque Call Center Assistant II Catheter, 5 Monegasque pigtail catheter Guidewire: 0.035 inch angled tapered Glidewire. Fluoroscopic Radiation Summary: Plane A, Air Kerma: 404.0 mGy Plane B, Air Kerma: 83.8 mGy Dose Area Product (DAP): 17989.0 mGy*cm2 Fluoro time: 6:04 min:sec arterial: 125 [...] right common femoral artery utilizing a 4 Monegasque micropuncture set. A 5 Monegasque sheath was inserted and connected to heparinized [...] are normal.. Bilateral SCAs are normal. Bilateral delivery rn are normal subpial collateral filling of the MCA territory on the right side from right TOE TRIMMER vessels. The capillary and venous phases are [...] Violette Baker MD, Endovascular Surgical Neuroradiology Fellow Bad Work Gatherer: [facility] Transcribe Date/Time: Jan 10 2018 5:34P Dictated by : VIOLETTE BAKER MD This examination was interpreted and the report reviewed and electronically signed by: DWAYNE HOLT MD on Jan 11 2018 7:14PM EST BRIEF OP NOT Observed: 01/10/2018 Status: COMPLETED Source: [place] 2:51 PM [facility] HNO ID: [id number] Author: Violette Baker (Fel) Service: Neurosurgery Author Type: Fellow Type: Brief Op Note Filed: 01/10/2018 5:48 PM Note Text: BRIEF OP/PROCEDURE NOTE NEURO INTERVENTIONAL PROCEDURE DATE: January 10, 2018 LOG ID: [id number] Surgery/Procedure Date: 01/10/2018 Incision/Procedure Start Time: 1:33 PM Incision Close/Procedure End Time: 2:57 PM Anesthesia: None PRIMARY PROCEDURALIST: Dwayne Holt M.D. GIZZARD SKIN REMOVER(S): Elías PROCEDURE: Diagnostic Cerebral Angiogram Indications: Stroke Access Site: [facility] PRE-PROCEDURE DIAGNOSIS: Stroke POST-PROCEDURE DIAGNOSIS: CHARLINE stenosis FINDINGS: CHARLINE supraclinoid stenosis ESTIMATED BLOOD LOSS: None COMPLICATIONS: None SPECIMENS: Not Applicable SIGNATURE: Dwayne Holt MD PATIENT NAME: Stephanie Moore DATE: January 10, 2018 TIME: 2:51 PM PAGER/CONTACT #: [phone] IR LP FOR DRAINAGE Observed: 01/10/2018 Status: F Source: [place] (PRESSURE) 2:19 PM [facility] * * *Final Report* * * [...] guidance was performed in conjunction with the rvda master certified rv technician. Plane A, Air Kerma: 4.5 mGy [...] pressure 5cm H2O Attending Physician: Dr. Holt Television News Anchor: None The procedure was performed by Alejandrina Cleary CNP the dental chairside assistant, and the attending radiologist personally supervised the entire procedure. The attending radiologist performed the following procedural activities: Entire procedure Pre procedural planning, consent, huddle/timeout, patient monitoring, sedation administration. Bad Work Gatherer: SAM Transcribe Date/Time: Jan 10 2018 2:34P Dictated by : DWAYNE HOLT MD This examination was interpreted and the report reviewed and electronically signed by: DWAYNE HOLT MD on Jan 11 2018 7:13PM EST BRIEF OP NOT Observed: 01/10/2018 Status: COMPLETED Source: [place] 1:53 PM [facility] HNO ID: [id number] Author: Alejandrina Cleary Service: (none) Author Type: Nurse Practitioner Type: Brief Op Note Filed: 01/10/2018 2:44 PM Note Text: BRIEF OP NOTE LOG ID: [id number] Surgery/Procedure Date: 01/10/2018 Incision/Procedure Start Time: 1:33 PM Incision Close/Procedure End Time: 1:48 Surgeon(s)/Proceduralist(s) and Television News Anchor(s): Alejandrina Cleary NP Surgeon(s) and Role: * [...] stroke AND CHARLINE stenosis SIGNATURE: Alejandrina Cleary APRN.ELEMENTARY READING TUTOR PATIENT NAME: Stephanie Moore DATE: January 10, 2018 TIME: 1:57 PM PAGER/CONTACT #: [phone] Observed: 01/10/2018 Status: F Source: [place] CSF CULT AND STAIN 1:47 PM [facility] Sp. Request/Comment: - Specimen received in sterile container. 4CC Smear Result - No organisms seen No Polymorphonuclear Leukocytes Culture Result - No growth 14 days Performed By: #### CSFCUL #### [facility] [employer] [facility] [address] [address] Observed: 01/10/2018 Status: F Source: [place] FUNGUS CSF CULT/CAD 1:47 PM [facility] REPOSITORY Test Result - Cryptococcal antigen detection result: Negative By latex agglutination Culture Result - No Fungus isolated after 28 days Performed By: #### FUNCSF #### [facility] [employer] [facility] [address] [address] PROGRESS Observed: 01/10/2018 Status: COMPLETED Source: [place] 1:42 PM [facility] REPOSITORY HNO ID: [id number] Author: Terry MosherRn) CLAYTON Noel Service: (none) [...] HISTORY PHYSICAL Observed: 01/10/2018 Status: COMPLETED Source: [place] 1:17 PM [facility] ID: [id number] Author: Alejandrina Cleary Service: (none) Author Type: [...] January 10, 2018 TIME: 1:17 PM PAGER: [phone] OLIGOCLONAL BAND BLD Collected: 01/10/2018 Status: F Source: [place] LAB ORDER 12:31 PM [facility] REPOSITORY TYPE CODE TESTS RESULT OUT OF REFERENCE UNITS RANGE LAB OLIGOB See Oligoclonal Band Oligoclonal Band Bld CSF Report. LAB ORDER ONLY Performed By: #### OLIGOB, TOURTB #### [facility] [address] [phone] TOURTELLOTTE BLOOD (FOR Collected: 01/10/2018 Status: F Source: [place] USE WITH TOURT ORDER 12:31 PM [facility] REPOSITORY TYPE CODE TESTS RESULT OUT OF REFERENCE UNITS RANGE LAB TOURTB See [place] CSF Blood (For use Report. with TOURT order only) Performed By: #### OLIGOB, TOURTB #### [facility] [address] [place], [place] [address] NURSING PROG Observed: 01/10/2018 Status: COMPLETED Source: [place] 12:03 PM [facility] HNO ID: [id number] Author: Nicolette (Rn) CLAYTON Huertas Service: (none) Author Type: Registered Nurse Type: Nursing Progress Note Filed: 01/10/2018 12:03 PM Note Text: H/o total hysterectomy CNCNPATED Observed: 01/10/2018 Status: COMPLETED Source: [place] 12:00 AM [facility] Education (Angio) SOLISSTEPHANIE Steen ([id number]) 1960 F Date Time Provider Department 01/10/18 [...] 01/10/18 CYTOLOGY Observed: 01/10/2018 Status: F Source: [place] 12:00 AM [facility] [place] REPOSITORY Specimen originated from [facility] Specimen #: [id number] Submitting Physician: ANNE MARIE MACDONALD DO SPECIMEN SUBMITTED A: CEREBROSPINAL FLUID FINAL DIAGNOSIS A. CEREBROSPINAL FLUID Negative for malignant cells. Laureen Gong MD (Electronic Signature) CLINICAL DATA Intracranial stenosis and stroke GROSS DESCRIPTION 3cc clear colorless fluid STAINS A: CEREBROSPINAL FLUID THIN PREP Non-Blockmason Date of Report: 01/13/2018 Date of Procedure: 01/10/2018 Date of Receipt: 01/10/2018 Submitted by: ANNE MARIE MACDONALD DO Location: [facility] CEREBROVASC MAIN Diagnostic interpretation performed at [facility], [address] [place] [address]. NURSING PROG Observed: 01/07/2018 Status: COMPLETED Source: [place] 9:29 AM [facility] HNO ID: [id number] Author: Olivia (Rn) CLAYTON Dorsey Service: (none) Author Type: Registered Nurse Type: Nursing Progress Note Filed: 01/07/2018 9:33 AM Note Text: Pre-procedure phone calls: Contacted Stephanie Moore and confirmed appt. for Cerebral Angio scheduled on 01/10, at [facility]. I will be providing you with [...] to be drawn by 01/01 at the [facility] closest to your home or your procedure will be rescheduled. Arrival: Please bring your Photo ID and Insurance Card. A general consent may need to be signed. Arrive to 1-1 ([facility]) Admitting/Registration by 1030. Then proceed to desk QB-1 ([facility]) and check in for your procedure. Your anticipated procedure start time will be between 1200 AND 1300. It Help Desk Associate/Transportation: How will you be arriving for your procedure? private car. If you will be arriving at [facility] via ambulance or public transportation, please call to discuss. You will need a responsible adult to accompany you to and from the procedure. Your retail delivery driver is required to stay with you [...] you... What is your arrival time to [facility]? 1030 What time do you stop eating food? [place] What time can you have clears until? 1000 Tell me how you will be taking your medications the morning of your procedure? Has stopped Coumadin. If you have any questions please call [phone] PROGRESS Observed: 01/06/2018 Status: COMPLETED Source: [place] 4:03 PM [facility] REPOSITORY HNO ID: [id number] Author: Jose Beltran Service: (none) Author Type: [...] daughter she presented to emergency department at [facility]. Initial CT scan demonstrated hypoattenuation [...] There is no demonstrated aneurysm of the [place]. IMPRESSION: A significant focal stenosis [...] lamellar necrosis Patient was then transferred to [facility] due to in availability of LEOPOLDO at [facility]. LEOPOLDO 10/01/2017: 1. Left ventricle: [...] No jaundice or rash. No petechiae. NEUROLOGIC: transportation inspector II-XII are grossly intact. No focal motor [...] can discontinue anticoagulation. -Continue work up at [facility] at the cerebrovascular [facility]. Jose Beltran DO CNOVSP Observed: 01/06/2018 Status: COMPLETED Source: [place] 3:50 PM [facility] Visit (SP) Office (MARVA) STEPHANIE MOORE ([id number]) 1960 F Date Time Provider Department 01/06/18 3:50 PM JOSE BELTRAN During your visit today, we recorded the following information about you: Temperature Pulse Blood pressure Weight 98.6 degrees 62/minute 134/81 99.1 kg Jose Beltran DO 01/07/2018 1:09 PM Signed [...] daughter she presented to emergency department at [facility]. Initial CT scan demonstrated hypoattenuation [...] There is no demonstrated aneurysm of the [place]. IMPRESSION: A significant focal stenosis [...] lamellar necrosis Patient was then transferred to [facility] due to in availability of LEOPOLDO at [facility]. LEOPOLDO 10/01/2017: 1. Left ventricle: [...] No jaundice or rash. No petechiae. NEUROLOGIC: transportation inspector II-XII are grossly intact. No focal motor [...] Jose Beltran DO Referring Provider: JOSE BELTRAN [[id number]] Allergies As of Date: 01/06/2018 Noted Allergy [...] [I63.9] Order(s):LUPUS ANTICOAG PL [SQLUPUSP] Order #: [id number] FUTURE Follow-up and Disposition History Recorded Prescriptions [...] of lower limb [G90*INVALID FOR* NEURALGIA/NEURITIS NOS [UIA2373] INVALID FOR* MONONEURITIS LEG NOS [G57.90] INVALID [...] II, BMI 35-39.9 [E66.9] INVALID FOR* Vasculitis, ELECTRONIC HEAT SEAL OPERATOR (HCC) [I77.6] INVALID FOR* More... Stenosis of right internal carotid artery [I65.*INVALID FOR* More... Encounter Status:Closed by JOSE BELTRAN DO on 01/07/18 RE-EVALUTION OT Observed: 01/06/2018 Status: F Source: STEPHANIA 9:02 AM [facility] REPOSITORY [facility] [place] [address] [place] [address] Fax REEVALUATION / MEDICARE RECERTIFICATION OCCUPATIONAL THERAPY MR#: [id number] Acct: [id number] Name: SOLISEnioSTEPHANIE Dayanna Rep #: [id number] : 1960 57 From: Joanna Arambula Referring Dr.: LESLIE Luke Status: REG RCR Insurance: JANNA Sheriff Date: SELF PAY INSURANCE Berhane Marly, SECTIONAL BELT MOLD ASSEMBLER-C, It has been my pleasure to treat STEPHANIE MOORE over the last 25 visits for Ischemic CVA. Please see the progress note below for an update on the occupational therapy plan of care! Subjective: Arrived and noted having follow up at [facility] for spinal tap, angiogram, and EKG [...] 5/5. wrist flexion: R 5/5/, L 5/5. 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 lateral pinch : [...] well as angioplasty and additional test at [facility]. Will wait to determine the need of further therapy post results of spinal tap. She will call with results. If she is doing well post results chart will be d/c'd. Goals - Goals Goal:: Stephanie to increased L profile trimmer to within 10 lbs of R profile trimmer to promote manipulation of self care items [...] do not hesitate to contact me at [phone] by phone or if you have questions or concerns regarding this new plan of care! Sincerely, Joanna Arambula <Electronically signed by Joanna Arambula > 01/06/18 0902 CC: LESLIE Luke; Anuj Hanson MD ARASH Signed For Medicare only, by signing this I certify the plan of care. Physicians Signature Date PROGRESS Observed: 01/03/2018 Status: COMPLETED Source: [place] 11:11 AM [facility] HNO ID: [id number] Author: Jaqueline Doll Service: (none) Author Type: (none) Type: Progress Notes Filed: 01/03/2018 11:34 AM Note Text: Schedule LP and cerebral angiogram w/Dr Holt-- see orders and surgical form HOSP Observed: 01/03/2018 Status: COMPLETED Source: [place] 12:00 AM [facility] Patient Update (NSEVMN) STEPHANIE MOORE ([id number]) 1960 F Date Time Provider Department 01/03/18 DWAYNE HOLT [facility] During your visit today, we recorded [...] -- STOP Coumadin 5 days before -- retail delivery driver present for discharge -- at least [...] - Fully Assessed Order(s):SURGICAL REQUEST - ELECTIVE [[id number]] Order #: [id number]: 1 Prescriptions as of 01/03/2018 Sig: WARFARIN [...] of lower limb [G90*INVALID FOR* NEURALGIA/NEURITIS NOS [[id number]] INVALID FOR* MONONEURITIS LEG NOS [G57.90] INVALID [...] II, BMI 35-39.9 [E66.9] INVALID FOR* Vasculitis, ELECTRONIC HEAT SEAL OPERATOR (HCC) [I77.6] INVALID FOR* More... Stenosis of right internal carotid artery [I65.*INVALID FOR* More... Other instructions from your clinician: Pre and post angio instructions reviewed with pt including: -- pre-procedure labs to be drawn -- fasting post MN, clear liquids until 2 hrs before -- take usual meds including ASA except -- STOP Coumadin 5 days before -- retail delivery driver present for discharge -- at least 2-3 hrs bed rest recovery/observation -- groin angio site care -- activity restrictions (avoid strenuous, heavy lifting, submersion in water x 1 week) Follow-up and Disposition History Recorded Encounter Status:Closed by JAQUELINE DOLL on 01/03/18 HOSP Observed: 01/03/2018 Status: COMPLETED Source: [place] 12:00 AM [facility] [place] REPOSITORY Patient:Stephanie Moore MRN: <[id number]> Height:5' 4(1.626 m) Weight:218 lb 8 oz [...] limb [G90.529] Neuralgia, neuritis, and radiculitis, unspecified [JUI4713] Mononeuritis of lower limb, unspecified [G57.90] Dysthymic disorder [F34.1] Acute cholecystitis [K81.0] Obesity [E66.9] De Quervain's tenosynovitis, left [M65.4] CMC arthritis [M19.049] Thumb pain [M79.646] Ischemic stroke of frontal lobe (HCC) [I63.9] Factor 5 Leiden mutation, heterozygous (HCC) [D68.51] Anti-cardiolipin antibody positive [R76.8] Obesity, Class II, BMI 35-39.9 [E66.9] Vasculitis, ELECTRONIC HEAT SEAL OPERATOR (HCC) [I77.6] Stenosis of right internal carotid artery [I65.21] Allergies: Opioids - Morphine Analogues Pentazocine Propoxyphene steri strips and paper tape [Other] Talacen [Pentazocine-Acetaminophen] Date Verified: 01/06/18 Lab Values Lab Value Units Date High Low POTA* 4.5 mmol/L 01/01/2018 5.1 3.7 OSMAN* 43.8 % 01/01/2018 46.0 36.0 Progress Notes ([facility]): Jose Beltran DO 01/07/2018 1:09 PM [...] daughter she presented to emergency department at [facility]. Initial CT scan demonstrated hypoattenuation [...] There is no demonstrated aneurysm of the [place]. IMPRESSION: A significant focal stenosis [...] lamellar necrosis Patient was then transferred to [facility] due to in availability of LEOPOLDO at [facility]. LEOPOLDO 10/01/2017: 1. Left ventricle: [...] No jaundice or rash. No petechiae. NEUROLOGIC: transportation inspector II-XII are grossly intact. No focal motor weakness. MUSCULOSKELETAL: No muscle wasting. ASSESSMENT/PLAN: (I63.9) Ischemic stroke of frontal lobe (HCC) (primary encounter diagnosis) (D68.51) Factor 5 Leiden mutation, heterozygous ([facility]) (R76.8) Anti-cardiolipin antibody positive Assessment: -Case discussed [...] can discontinue anticoagulation. -Continue work up at [facility] at the cerebrovascular center. Jose [...] -- STOP Coumadin 5 days before -- retail delivery driver present for discharge -- at least 2-3 hrs bed rest recovery/observation -- groin angio site care -- activity restrictions (avoid strenuous, heavy lifting, submersion in water x 1 week) Previous Version D/C SUMMARY- SP Observed: 01/02/2018 Status: F Source: [place] 4:39 PM [facility] REPOSITORY [facility] Speech Pathology [facility] [address] [place] [address] Fax REHABILITATION SERVICES DISCHARGE SUMMARY MR#: [id number] Acct: [id number] Name: STEPHANIE MOORE Rep #: [id number] : 1960 57 From: Pauly Padron M.S., [employer] [facility]-MANAGER DATA WAREHOUSING Referring Dr.: LESLIE Luke Status: REG RCR [...] wnet through the driving rehabilitation program through [facility] and passed her driving test. Patient had physician visit at [facility] on . Patient is to have angioplasty [...] therapy. <Electronically signed by Pauly Padron M.S., CCC-MANAGER DATA WAREHOUSING> 01/02/18 1639 CC: LESLIE Luke; Anuj Hanson MD Signed URINALYSIS WITH Collected: 01/01/2018 Status: F Source: [facility] 1:06 PM [facility] TYPE CODE TESTS RESULT OUT OF RANGE REFERENCE UNITS LAB UCOL Yellow Color Yellow LAB [facility] Clear Clarity Clear LAB UGLUC Negative mg/dL Glucose, Urine Negative LAB UBIL Negative Bilirubin, Urine Negative LAB UKET Negative Ketones, Urine Negative LAB USPG 1.005-1.030 Specific [place], Ur 1.012 LAB UHGB Negative Hemoglobin/Blood, Negative [...] Epithelial Cells Performed By: #### UAWMIC #### [facility] [address], [place] [address] PROGRESS Observed: 01/01/2018 Status: COMPLETED Source: [place] 10:42 AM [facility] HNO ID: [id number] Author: Anne Marie Macdonald Service: (none) Author Type: Physician Type: Progress Notes Filed: 01/13/2018 9:51 PM Note Text: [facility] Initial Office Visit Consultation is requested by: Dwayne Holt MD [address] [facility] [address] PCP: ANUJ HANSON MD [address] [place] [address] CEREBROVASCULAR HISTORY History of Recent Event: Stephanie [...] Evaluation. Patient was seen and evaluated at [facility]. She was admitted and stayed for 12 Days. She was placed on Coumadin, Aspirin, and Lipitor and told to follow up with a Neurologist. She was seen by a Neurologist in [place] and then advised to be seen at [facility]. Antiplatelet, Anticoalulant, Statin: Aspirin, Warfarin and [...] tight and squeezing. She describes them as sahl-fm-yrwbpdav feel she has had a buzzing in her head. She denies any spells of staring automatisms tonic or clonic activity. 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 She was admitted to [place] on 09/19/17. CT showed a R MCA ischemic stroke in the frontotemporal region. tPA was not administered as she was outside of time window and no intravascular intervention was done given no large vessel occlusions. Complete stroke workup was done at [place]. She was transferred here to get a LEOPOLDO after several unsuccessful attempts at [place]. Complain: L sided neglect. 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 Coordination: Rapid alternating movements symmetric bilaterally. Xbkyey-zd-lbod, sljt-lg-lwdu without dysmetria bilaterally. Reflexes: 2+/4 reflexes symmetric [...] angiogram 3. Lumbar puncture to evaluate for ELECTRONIC HEAT SEAL OPERATOR infectious/inflammatory etiologies for right supraclinoid ICA stenosis [...] D.O. Staff Neurologist CC Dwayne Holt MD [address] [facility] [address] ANUJ HANSON MD [address] [place] [address] PROGRESS Observed: 01/01/2018 Status: COMPLETED Source: [place] 10:13 AM [facility] [place] REPOSITORY HNO ID: [id number] Author: Celia Yepez (Coord) Service: (none) Author Type: Resource Type: Progress Notes Filed: 01/01/2018 10:24 AM Note Text: Stephanie Moore was seen by Celia Yepez and Dr. Daksha Krishnamurthy for IRB # [id number], study entitled ELECTRONIC HEAT SEAL OPERATOR Vasculopathy. She was enrolled as subject #179. [...] C3 COMPLEMENT Collected: 01/01/2018 Status: F Source: [place] 10:06 AM [facility] TYPE CODE TESTS RESULT OUT OF REFERENCE UNITS RANGE LAB C3COMP 86-166 mg/dL C3 Complement 144 Performed By: #### C3COMP, C4COMP, CMP, CRP, LIPNF, CBC, WSR, HBA1C, ENAID, CARDIG, CARDIM, ANA1, ANAIFS, ANABLL, DNA #### [facility] [employer] [address] [place], [place] [address] C4 COMPLEMENT Collected: 01/01/2018 Status: F Source: [place] 10:06 AM [facility] TYPE CODE TESTS RESULT OUT OF REFERENCE UNITS RANGE LAB C4COMP 13-46 mg/dL C4 Complement 22 Performed By: #### C3COMP, C4COMP, CMP, CRP, LIPNF, CBC, WSR, HBA1C, ENAID, CARDIG, CARDIM, ANA1, ANAIFS, ANABLL, DNA #### [facility] [employer] [address] [place], [place] [address] COMP METABOLIC PANEL Collected: 01/01/2018 Status: F Source: [place] 10:06 AM [facility] TYPE CODE TESTS RESULT OUT OF REFERENCE UNITS RANGE LAB TP 6.3-8.0 g/dL Protein, Total 7.1 LAB ALB 3.9-4.9 g/dL Albumin 4.8 LAB CA 8.5-10.2 mg/dL Calcium, Total 9.5 LAB TBIL 0.2-1.3 mg/dL Bilirubin, Total 0.4 LAB ALKP 34-123 U/L Alkaline Phosphatase 80 LAB AST 13-35 U/L AST High 40 LAB GLU 74-99 mg/dL Glucose High 107 Result Comment: The [place] Diabetes Association (ADA) provides guidance for cutoff [...] Standards of Medical Care in Diabetes 2016, [place] Diabetes Association. Diabetes Care. 2016.39(Suppl 1). LAB [...] CARDIG, CARDIM, ANA1, ANAIFS, ANABLL, DNA #### [facility] [employer] [address] [place], [place] [address] C-REACTIVE PROTEIN Collected: 01/01/2018 Status: F Source: [place] 10:06 AM [facility] TYPE CODE TESTS RESULT OUT OF REFERENCE UNITS RANGE LAB CRP <0.9 mg/dL C-Reactive 0.2 Protein Performed By: #### C3COMP, C4COMP, CMP, CRP, LIPNF, CBC, WSR, HBA1C, ENAID, CARDIG, CARDIM, ANA1, ANAIFS, ANABLL, DNA #### [facility] [employer] [address] [place], [place] [address] LIPID PANEL, NONFAST Collected: 01/01/2018 Status: F Source: [place] 10:06 AM [facility] TYPE CODE TESTS RESULT OUT OF [...] Desk Reference: National Heart, Lung, and Blood [place]. National Institutes of Health. 2001: NIH Publication No. 01-3305. 2. An International Atherosclerosis Society position paper: global recommendations for the management of dyslipidemia: executive summary, Atherosclerosis. 2014: 232(2):410-413. Performed By: #### C3COMP, C4COMP, CMP, CRP, LIPNF, CBC, WSR, HBA1C, ENAID, CARDIG, CARDIM, ANA1, ANAIFS, ANABLL, DNA #### [facility] [address] [place], [place] [address] CBC Collected: 01/01/2018 Status: F Source: [place] 10:06 AM [facility] TYPE CODE TESTS RESULT OUT OF [...] CARDIG, CARDIM, ANA1, ANAIFS, ANABLL, DNA #### [facility] [employer] [address] [place], [place] [address] SED RATE WESTERGREN Collected: 01/01/2018 Status: F Source: [place] 10:06 AM [facility] TYPE CODE TESTS RESULT OUT OF REFERENCE UNITS RANGE LAB WSR 0-20 mm/hr Sed Rate Westergren 12 Performed By: #### C3COMP, C4COMP, CMP, CRP, LIPNF, CBC, WSR, HBA1C, ENAID, CARDIG, CARDIM, ANA1, ANAIFS, ANABLL, DNA #### [facility] [employer] [address] [place], [place] [address] HEMOGLOBIN A1C Collected: 01/01/2018 Status: F Source: [place] 10:06 AM [facility] TYPE CODE TESTS RESULT OUT OF REFERENCE UNITS RANGE LAB HGBA1C 4.3-5.6 % High Hemoglobin A1c 5.8 LAB HBA0 mg/dL Est. Average Glucose 120 Result Comment: eAG: (Estimated average glucose) is a calculated value from HgbA1c and is procurement representative of the average blood glucose level in the last 2-3 month period. Performed By: #### C3COMP, C4COMP, CMP, CRP, LIPNF, CBC, WSR, HBA1C, ENAID, CARDIG, CARDIM, ANA1, ANAIFS, ANABLL, DNA #### [facility] [employer] [address] [place], [place] [address] NE ANTIBODY PANEL Collected: 01/01/2018 Status: F Source: [place] 10:06 AM [facility] TYPE CODE TESTS RESULT OUT OF REFERENCE UNITS RANGE LAB SMIB <1.0 AI Sm Antibody <0.2 Result Comment: NEGATIVE Negative: <1.0 AI Positive: >0.9 AI LAB RNPIB <1.0 AI MINE ADMINISTRATOR SUPERVISOR Antibody <0.2 Result Comment: NEGATIVE Negative: <1.0 [...] >0.9 AI LAB RRNPIB <1.0 AI Ribosomal MINE ADMINISTRATOR SUPERVISOR <0.2 Result Comment: NEGATIVE Negative: <1.0 AI Positive: >0.9 AI LAB CHRMIB <1.0 AI Chromatin Antibody <0.2 Result Comment: NEGATIVE Negative: <1.0 AI Positive: >0.9 AI Performed By: #### C3COMP, C4COMP, CMP, CRP, LIPNF, CBC, WSR, HBA1C, ENAID, CARDIG, CARDIM, ANA1, ANAIFS, ANABLL, DNA #### [facility] [employer] [address] [place] [id number] CARDIOLIPIN IGG ABS Collected: 01/01/2018 Status: F Source: [place] 10:06 AM [facility] TYPE CODE TESTS RESULT OUT OF REFERENCE UNITS RANGE LAB CARDG 0-9 GPL IgG Cardiolipin Ab. <9 Result Comment: <10 GPL Negative 10-40 GPL Equivocal >40 GPL Positive The following results were obtained with the [employer] QUANTA Lite KARLEY IgG III BERNADINE. Cardiolipin IgG values obtained with the different manufacturers' assay methods may not be used interchangeably. The mag nitude of the reported IgG levels cannot be correlated to an endpoint titer. Performed By: #### C3COMP, C4COMP, CMP, CRP, LIPNF, CBC, WSR, HBA1C, ENAID, CARDIG, CARDIM, ANA1, ANAIFS, ANABLL, DNA #### [facility] [employer] [address] [place], [place] [address] CARDIOLIPIN IGM ABS Collected: 01/01/2018 Status: F Source: [place] 10:06 AM [facility] TYPE CODE TESTS RESULT OUT OF REFERENCE UNITS RANGE LAB CARDM 0-11 MPL IgM High Cardiolipin Ab. 23 Result Comment: <12 MPL Negative 12-40 MPL Equivocal >40 MPL Positive The following results were obtained with the [employer] QUANTA Lite KARLEY IgM III BERNADINE. Cardiolipin IgM values obtained with different manufacturers' assay methods may not be used interchangeably. The magnitu de of the reported IgM levels cannot be correlated to an endpoint titer. Performed By: #### C3COMP, C4COMP, CMP, CRP, LIPNF, CBC, WSR, HBA1C, ENAID, CARDIG, CARDIM, ANA1, ANAIFS, ANABLL, DNA #### [place] [id number] JAMES PANEL 1 Collected: 01/01/2018 Status: F Source: [place] 10:06 AM [facility] TYPE CODE TESTS RESULT OUT OF [...] CARDIG, CARDIM, ANA1, ANAIFS, ANABLL, DNA #### [facility] [employer] [address] [place] [address] JAMES BY IFA Collected: 01/01/2018 Status: F Source: [place] 10:06 AM [facility] TYPE CODE TESTS RESULT OUT OF RANGE REFERENCE UNITS LAB ANASC Negative Abnormal Alert JAMES Positive Result Comment: Normal range : negative at <1:80 serum dilution. LAB ALOK Negative Abnormal Alert JAMES Titer 1:1280 LAB ANAP JAMES Pattern [employer]. Performed By: #### C3COMP, C4COMP, CMP, CRP, LIPNF, CBC, WSR, HBA1C, ENAID, CARDIG, CARDIM, ANA1, ANAIFS, ANABLL, DNA #### [facility] [employer] [address] [place] [address] JAMES IFA TITER BILL Collected: 01/01/2018 Status: F Source: [place] 10:06 AM [facility] TYPE CODE TESTS RESULT OUT OF REFERENCE UNITS RANGE LAB ANABLL JAMES Billed for IFA Titer services Bill performed Performed By: #### C3COMP, C4COMP, CMP, CRP, LIPNF, CBC, WSR, HBA1C, ENAID, CARDIG, CARDIM, ANA1, ANAIFS, ANABLL, DNA #### [facility] [employer] [address] [place], [place] [address] DNA ANTIBODY W/ CONF. Collected: 01/01/2018 Status: F Source: [place] 10:06 AM [facility] TYPE CODE TESTS RESULT OUT OF REFERENCE UNITS RANGE LAB DNA <30 IU/mL DNA Antibody <12 w/ Conf. Result Comment: Negative for ds DNA Antibodies Negative: <30 IU/mL Equivocal: 30-74 IU/mL Positive: >74 IU/mL Performed By: #### C3COMP, C4COMP, CMP, CRP, LIPNF, CBC, WSR, HBA1C, ENAID, CARDIG, CARDIM, ANA1, ANAIFS, ANABLL, DNA #### [facility] [employer] [address] [place], [place] [address] PROTIME Collected: 01/01/2018 Status: F Source: [place] 10:05 AM [facility] TYPE CODE TESTS RESULT OUT OF RANGE REFERENCE UNITS LAB PSEC 9.7-13.0 sec High PT Sec 20.3 LAB INR 0.9-1.3 High PT INR 2.0 Result Comment: Vitamin K Antagonist (VKA) Therapeutic Range: INR 2 to 3 (Target INR of 2.5) Note: For patients treated with VKA drugs, such as warfarin, the [place] College of Chest Physicians 2012 Guideline recommends [...] Chest 2012, 141:7S-47S Katya RA, et al. [facility] 2017, 70: 252-289 Performed By: #### PT #### [facility] [address] [place], [place] [address] CNOV Observed: 01/01/2018 Status: COMPLETED Source: [place] 9:40 AM [facility] Office Visit (NECVS8) STEPHANIE MOORE ([id number]) 1960 F Date Time Provider Department 01/01/18 9:40 AM ANNE MARIE MACDONALD NECVS8 During your visit today, we recorded the following information about you: Pulse Respiration Blood pressure Weight 70/minute 18/minute 125/65 102.6 kg Height 1.626 m Anne Marie Macdonald DO 01/13/2018 9:51 PM Signed [facility] Initial Office Visit Consultation is requested by: Dwayne Holt MD [address] [facility] [address] PCP: ANUJ HANSON MD [address] [place] [address] CEREBROVASCULAR HISTORY History of Recent Event: Stephanie [...] Evaluation. Patient was seen and evaluated at [facility]. She was admitted and stayed for 12 Days. She was placed on Coumadin, Aspirin, and Lipitor and told to follow up with a Neurologist. She was seen by a Neurologist in [place] and then advised to be seen at [facility]. Antiplatelet, Anticoalulant, Statin: Aspirin, Warfarin and [...] tight and squeezing. She describes them as vkdt-hf-akureyjc feel she has had a buzzing in her head. She denies any spells of staring automatisms tonic or clonic activity. 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 She was admitted to [place] on 09/19/17. CT showed a R MCA ischemic stroke in the frontotemporal region. tPA was not administered as she was outside of time window and no intravascular intervention was done given no large vessel occlusions. Complete stroke workup was done at [place]. She was transferred here to get a LEOPOLDO after several unsuccessful attempts at [place]. Complain: L sided neglect. 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 Coordination: Rapid alternating movements symmetric bilaterally. Djhiro-ie-zgzp, jbeb-sw-zuau without dysmetria bilaterally. Reflexes: 2+/4 reflexes symmetric [...] angiogram 3. Lumbar puncture to evaluate for ELECTRONIC HEAT SEAL OPERATOR infectious/inflammatory etiologies for right supraclinoid ICA stenosis [...] D.O. Staff Neurologist CC Dwayne Holt MD [address] [facility] [address] ANUJ HANSON MD [address] [place] [address] Anne Marie Macdonald DO 01/01/2018 12:45 PM Signed Regarding your visit with Dr. Macdonald and Nurse Valeriy Murphy today at the [facility] we discussed the following: Impression: [...] angiogram 3. Lumbar puncture to evaluate for ELECTRONIC HEAT SEAL OPERATOR infectious/inflammatory etiologies for right supraclinoid ICA stenosis [...] have any questions Anne Marie Macdonald, [facility] [address] [place] [address] / [place] [address] Office: [phone] ~~~~~~~~~~~~~~~~~~~~~~~~~~~~~~~~~~~~~~~~~~~~~~~~~~~~~~~~~~~~~~~~~~~~~~~~ Stroke Signs and Symptoms: *Stroke is [...] regimen, may be considered Adopted from the [place] St[employer] Attack : A Guideline for Healthcare Professionals From the [place] Heart Guidelines for the Prevention of Stroke in Patients With Stroke or Transient Ischemic - 2013 Referring Provider: DWAYNE HOLT [[id number]] Allergies As of Date: 01/01/2018 Noted Allergy [...] to stenosis of right middle cerebral artery ([facility]) [I63.511] Other Visit Diagnoses:Vasculitis, ELECTRONIC HEAT SEAL OPERATOR ([facility]) [I77.6] Tinnitus, bilateral [H93.13] Complex regional pain syndrome type 1 of right lower extremity [G90.521] Factor 5 Leiden mutation, heterozygous ([facility]) [D68.51] Stenosis of right internal carotid artery [I65.21] Order(s):IR LP FOR DRAINAGE (PRESSURE) [3031310] Order #: [id number] GLUCOSE RANDOM BLD [SQGLU] Order #: [id number] FUTURE OLIGOCLONAL BAND BLD [SQOLIGOB] Order #: [id number] FUTURE TOURTELLOTTE BLOOD [SQTOURTB] Order #: [id number]. #:[id number] CSF ROUT ANALYSIS [SQRTCSF] Order #: [id number]. #:[id number] ANGIOTEN CON ENZ, CSF [SQCACE] Order #: [id number]. #:[id number] CEREBROSPINAL FLUID, CYTOLOGY [[id number]] Order #: [id number]. #:[id number] FTA ANTIBODIES CSF [SQFTACSF] Order #: [id number]. #:[id number] CRYPTOCOCCUS AG DET [SQCAD] Order #: [id number] HERPES SIMPLEX CSF [SQHSPCRC] Order #: [id number]. #:[id number] OLIGOCLONAL BAND CSF [SQOLIGO] Order #: [id number]. #:[id number] TOURTELLOTTE CSF [SQTOURT] Order #: [id number]. #:[id number] TUBES - DRAW EXTRA [SQXTUBE] Order #: [id number] FUTURE VDRL CSF [SQVDRLCF] Order #: [id number]. #:[id number] VZV IGG, CSF [SQCVZVG] Order #: [id number]. #:[id number] CSF CULT + STAIN [SQCSFCUL] Order #: [id number] HSV 1,2/VZV AMP MOLECULAR DETECT [SQHSVVZV] Order #: [id number] FUTURE VARICELLA ZOSTER IGG [SQVZVG] Order #: [id number] FUTURE COMPREHENSIVE AUDIOLOGIC EXAM [12311YQF] Order #: [id number] OLIGOCLONAL BAND BLD [SQOLIGOB] Order #: [id number]. #:[id number] Prescriptions as of 01/01/2018 Sig: WARFARIN 5 [...] of lower limb [G90*INVALID FOR* NEURALGIA/NEURITIS NOS [DLG0919] INVALID FOR* MONONEURITIS LEG NOS [G57.90] INVALID [...] and Nurse Valeriy Murphy today at the [facility] we discussed the following: Impression: [...] angiogram 3. Lumbar puncture to evaluate for ELECTRONIC HEAT SEAL OPERATOR infectious/inflammatory etiologies for right supraclinoid ICA stenosis [...] you have any questions Anne Marie Macdonald, [facility] [address] [facility] / [place] [address] Office: [phone] ~~~~~~~~~~~~~~~~~~~~~~~~~~~~~~~~~~~~~~~~~~~~~~~~~~~~~~~~~~~~~~~~~~~~~~~~ Stroke Signs and Symptoms: *Stroke is [...] regimen, may be considered Adopted from the [place] [employer] Attack : A Guideline for Healthcare Professionals From the [place] Heart Guidelines for the Prevention of Stroke in Patients With Stroke or Transient Ischemic - 2013 Follow-up and Disposition History Recorded Encounter Status:Closed by ANNE MARIE MACDONALD DO on 01/13/18 PROGRESS Observed: 01/01/2018 Status: COMPLETED Source: [place] 7:42 AM [facility] HNO ID: [id number] Author: Dl Escalona Service: (none) Author Type: [...] She only went to the ED in [place] because she had a near miss with [...] Thumb Pain Ischemic Stroke of Frontal Lobe ([facility]) Factor 5 Leiden Mutation, Heterozygous ([facility]) Anti-Cardiolipin Antibody Positive Obesity, Class II, Bmi 35-39.9 PAST MEDICAL HISTORY Diagnosis Date - DVT (deep venous thrombosis) ([facility]) 2009 - Dysthymic disorder Depression (non-psychotic) - [...] There is no demonstrated aneurysm of the [place]. ? 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 She had some prodromal headache symptoms [...] dysfunction or vision disturbance. Was admitted to [place] ED and was found to have L [...] MD CNOV Observed: 01/01/2018 Status: COMPLETED Source: [place] 7:40 AM [facility] Office Visit (RHEUMN) STEPHANIE MOORE ([id number]) 1960 F Date Time Provider Department 01/01/18 [...] She only went to the ED in [place] because she had a near miss with an oncoming truck. In the ED, she noticed L UE weakness. Her work-up is summarized below but she was found to have severe R supraclinoid stenosis in the setting of R MCA infarct with a watershed appearance. Labs (not available via [employer] or in scanned documents) showed positive screening [...] There is no demonstrated aneurysm of the [place]. ? 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 She had some prodromal headache symptoms [...] dysfunction or vision disturbance. Was admitted to [place] ED and was found to have L [...] Order(s):JAMES PANEL BLOOD SCRN [SQANA1] Order #: [id number] FUTURE ANTI NE ID [SQENAID] Order #: [id number] FUTURE C-REACTIVE PROTEIN (CRP) [SQCRP] Order #: [id number] FUTURE SED RATE WESTERGREN [SQWSR] Order #: [id number] FUTURE CBC [SQCBC] Order #: [id number] FUTURE COMP METABOLIC PANEL [SQCMP] Order #: [id number] FUTURE C3 COMPLEMENT BLD [[id number]] Order #: [id number] FUTURE C4 COMPLEMENT BLD [YMM2BMCM] Order #: [id number] FUTURE URINALYSIS WITH MICROSCOPIC [SQUAWMIC] Order #: [id number] FUTURE CARDIOLIPIN IGG ABS [SQCARDIG] Order #: [id number] FUTURE CARDIOLIPIN IGM ABS [SQCARDIM] Order #: [id number] FUTURE LIPID PANEL, NONFASTING [SQLIPNF] Order #: [id number] FUTURE HGB A1C [DHSCX8X] Order #: [id number] FUTURE Prescriptions as of 01/01/2018 Sig: WARFARIN [...] of lower limb [G90*INVALID FOR* NEURALGIA/NEURITIS NOS [CRO0706] INVALID FOR* MONONEURITIS LEG NOS [G57.90] INVALID [...] 01/13/18 PROGRESS Observed: 12/30/2017 Status: COMPLETED Source: [place] 12:09 PM [facility] O ID: [id number] Author: Arlene Pacheco RN Service: (none) Author Type: (none) Type: Progress Notes Filed: 12/30/2017 12:10 PM Note Text: patient had inr completed at [facility] patients inr lab draw patient is currently [...] been preformed and has been sent to [facility] for stat reading at this time. please see phone note for further instruction. FYI - patient has been scheduled for a 2 week follow up inr on 01/13/18 pending results PROTHROMBIN TIME W/INR Collected: 12/30/2017 Status: F Source: [place] 11:05 AM [facility] REPOSITORY TYPE CODE TESTS RESULT OUT OF REFERENCE UNITS RANGE LAB L300.4150 11.7-14.9 SECONDS High PROTIME 36.0 LAB L300.4200 High alert INR 3.6 Result Comment: CRITICAL VALUE VERIFIED. CALLED TO ENRIQUE AT [facility] 12/30/17 132[address]. RESULTS READ BACK BY SAME . Performed By: #### L300.3900 #### [facility] [address] [place], [address] PROGRESS Observed: 12/16/2017 Status: COMPLETED Source: [place] 4:15 PM [facility] [place] REPOSITORY HNO ID: [id number] Author: Adele Dawn LPN Service: (none) Author Type: (none) Type: Progress Notes Filed: 12/16/2017 4:16 PM Note Text: patient notified and read back instructions. Adele Dawn LPN PROGRESS Observed: 12/16/2017 Status: COMPLETED Source: [place] 3:55 PM [facility] HNO ID: [id number] Author: Anuj Hanson Service: (none) Author Type: Physician Type: Progress Notes Filed: 12/16/2017 4:16 PM Note Text: Please ask her to take 5 mgs all the days of the week and recheck in 2 weeks PROGRESS Observed: 12/16/2017 Status: COMPLETED Source: [place] 10:42 AM [facility] [place] REPOSITORY HNO ID: [id number] Author: Arlene Pacheco RN Service: (none) Author Type: (none) Type: Progress Notes Filed: 12/16/2017 10:44 AM Note Text: patient had inr completed at [facility] patients inr is 1.6 (patients inr range [...] 12/30/17 OTAR Observed: 12/13/2017 Status: UNK Source: [facility] 3:30 PM [facility] REPOSITORY Occupational Therapy Performance Skills Evaluation Therapy [...] Demographics: Age: 57Y Gender: Female Primary Language: Indonesian Preferred Language: Indonesian OCCUPATIONAL PROFILE AND HISTORY Basic ADLs: she completes all self care on her own Instrumental ADLs: she has been able to return to all previous home management tasks including cooking, cleaning, laundry, medication management while sharing finances with her Work/Leisure/Education: she completed 12 years of formal education and has worked for 12 years at [employer] in [place] while was working 30- 40 hours of overtime a week prior to the stroke while got promotion now and 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 Time Since Last Driven: she has been doing some limited driving recently It Help Desk Associate's License Expiration Date: 02/27/18 State of: [place]; corrective lenses required Type of Vehicle: 2009 [employer] 4Runner Type of Insurance: [employer] Insurance Type of Driving Anticipated: Local Daytime Nighttime Hightway Reason for Driving is: [place] Work Social/Leisure [facility] PATIENT NAME: STEPHANIE MOORE [address] [facility] [address] MEDICAL REC #: [id number] [place] [address] ADMIT DATE: SERVICE DATE: 12/13/17 Occupational Therapy [...] has to wait until follow up in [place] regarding stent in brain to assist with prevention of future strokes Patient/Caregiver Goals: Patient's functional goals: to be able to return to providing for own transportation needs. Pain: Patient currently without complaints of pain. 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 [facility] PATIENT NAME: STEPHANIE MOORE [address] [facility] [address] [facility] [address] [place] MEDICAL REC #: [id number] [place] [address] ADMIT DATE: SERVICE DATE: 12/13/17 Occupational Therapy Assessment ATTENDING PHY: Erin Raymundo ELEMENTARY READING TUTOR Raw score normal for age is 32-36 correct while most errors in visual closure section COGNITION Screening Orientation: Impairment detected. Patient oriented to 4 /5 items. Was not oriented to time of day within 1 hour. Attention: [place] making test Part B: 87 seconds - [...] treatment, which does not warrant reassessment. Education: [facility] PATIENT NAME: STEPHANIE MOORE [address] [facility] [address] [place] MEDICAL REC #: [id number] [place] [address] ADMIT DATE: SERVICE DATE: 12/13/17 Occupational Therapy [...] minutes (Timed: 90, Untimed: 60) 90.00 Timed: [47824] ADL-HOME MANAGEMENT EA 15 MIN 60.00 Untimed: [94256] OT-EVALUATION HIGH COMPLEX Signed by: MONICA KELLY OT/Dayanna, CDRS, CDI/PD 12/20/2017 13:31:11 [facility] PATIENT NAME: STEPHANIE MOORE0 [facility] [address] [place] MEDICAL REC #: [id number] [place] [address] ADMIT DATE: SERVICE DATE: 12/13/17 Occupational Therapy Assessment ATTENDING PHY: Erin Raymundo CNP OTAR Observed: 12/13/2017 Status: UNK Source: [facility] 3:30 PM [facility] Occupational Therapy On the Road Driving Assessment Therapy Diagnosis: Rank Code Description Date of Onset 1 I63.9 Cerebral infarction, unspecified 12/20/2017 Initial Evaluation Date: 12/13/17 Evaluators: Monica Kelly, OT/L, CDRS, CDI/PD Type of Vehicle: 2011 [address]. Assistive Equipment: none Route: It Help Desk Associate Eval Route. She drove a total of [...] Not tested no problems with orienting to retail delivery driver evaluation vehicle Light (25mph) - Moderate Traffic(35mph) Ratings Skills Straight Aways Average Right Turns Average Left Turns Average Uses Turn Signals Average Stopsigns/Right away Average [facility] PATIENT NAME: STEPHANIE MOORE [facility] [address] [place] MEDICAL REC #: [id number] [place] [address] ADMIT DATE: SERVICE DATE: 12/13/17 Occupational Therapy Assessment ATTENDING PHY: Erin Raymundo CNP Speed Control Average 3 Point Turn/Backing Average Signs/Markings Average Curves/[place] Average Un/Protected Traffic Lights LTurn Average On [...] with highway driving General Analysis Ratings Skills [facility] PATIENT NAME: STEPHANIE MOORE [address] [facility] [address] [place] MEDICAL REC #: [id number] [place] [address] ADMIT DATE: SERVICE DATE: 12/13/17 Occupational Therapy [...] Visit Number: Today's visit is number 1 [facility] PATIENT NAME: [facility] [address] [place] MEDICAL REC #: [id number] [place] [address] ADMIT DATE: SERVICE DATE: 12/13/17 Occupational Therapy Assessment ATTENDING ZOYA: Erin Raymundo ELEMENTARY READING TUTOR Signed by: MONICA KELLY, OT/L, CDRS, CDI/PD 12/20/2017 13:37:56 [facility] PATIENT NAME: [facility] [address] [place] MEDICAL REC #: [id number] [place] [address] ADMIT DATE: SERVICE DATE: 12/13/17 Occupational Therapy Assessment ATTENDING ZOYA: Erin Raymundo CNP OTAR Observed: 12/13/2017 Status: UNK Source: [facility] 3:30 PM [facility] Occupational Therapy Community Mobility and IADL Report [...] demonstrated functional vision including as required by [facility] for far acuity and visual garcia, oculomotor [...] demonstrated functional vision as is required by [facility] for far acuity and visual garcia, oculomotor [...] distance driving only done with other licensed retail delivery driver with her which she had previously preferred; do not drive when not feeling well; avoid driving when extreme weather conditions. This therapist will provide Stephanie with information regarding safe driving skills, crash avoidance, tips for monitoring driving, and when to stop driving for her reference. [facility] PATIENT NAME: STEPHANIE MOORE [address] [facility] [address] [place] MEDICAL REC #: [id number] [place] [address] ADMIT DATE: SERVICE DATE: 12/13/17 Occupational Therapy [...] drivers on the road. Date: 12/20/17 Occupational Therapist/It Help Desk Associate Base Filler signature Please Note: The results and recommendations included in the It Help Desk Associate Evaluation Report are based on the patient's [...] may compromise the patient's ability as a retail delivery driver, this report can longer be relied upon as valid. If the patient's physical and mental status remains the same as during the evaluation period, the recommendations in the report should be considered valid for 6 months. Beyond that time, a re - evaluation may be necessary. Signed by: MONICA KELLY OT/Dayanna, S, CDI/PD 12/22/2017 16:07:58 [facility] PATIENT NAME: STEPHANIE MOORE [address] [facility] [address] MEDICAL REC #: [id number] [place] [address] ADMIT DATE: SERVICE DATE: 12/13/17 Occupational Therapy Assessment ATTENDING ZOYA: Erin Raymundo CNP PROGRESS Observed: 12/02/2017 Status: COMPLETED Source: [place] 9:41 AM [facility] REPOSITORY HNO ID: [id number] Author: Anuj Hanson Service: (none) Author Type: Physician Type: Progress Notes Filed: 12/02/2017 3:07 PM Note Text: agree RE-EVALUTION OT Observed: 12/02/2017 Status: F Source: [place] 9:29 AM [facility] REPOSITORY [facility] Occupational Therapy [facility] [address] [place] [address] Fax REEVALUATION / MEDICARE RECERTIFICATION OCCUPATIONAL THERAPY MR#: [id number] Acct: [id number] Name: STEPHANIE MOORE Rep #: [id number] : 1960 57 From: Joanna Arambula Referring [...] on 11/28/17. Measurements are as follows: Strength: profile trimmer 61, L 56; lateral R 15, L [...] 6. -Assembly- 5. Left neglect noted from mixer dry food products. Able to complete scanning without issue. Has [...] - Goals Goal:: Stephanie to increased L profile trimmer to within 10 lbs of R profile trimmer to promote manipulation of self care items [...] do not hesitate to contact me at [phone] by phone or if you have questions or concerns regarding this new plan of care! Sincerely, Joanna Arambula <Electronically signed by Joanna Arambula > 12/02/17 0929 CC: LESLIE Luke; Anuj Hanson MD ARASH Signed For Medicare only, by signing this I certify the plan of care. Physicians Signature Date PROGRESS Observed: 12/02/2017 Status: COMPLETED Source: [place] 9:16 AM [facility] HNO ID: [id number] Author: Arlene Pacheco RN Service: (none) Author Type: (none) Type: Progress Notes Filed: 12/02/2017 9:19 AM Note Text: patient had inr completed at [facility] patients inr is 1.9 (patients inr range [...] low. CNCO Observed: 11/28/2017 Status: COMPLETED Source: [place] 12:20 PM [facility] HNO ID: [id number] Author: Mammography Coordinator Service: (none) Author Type: Physician Type: Letter Filed: 12/02/2017 11:31 PM Note Text: November 28, 2017 PID: [id number] Stephanie Moore [address] [place] [address] Dear Ms. Moore, We are pleased to [...] report will be kept on file at [facility] as part of your permanent medical record and are available for your continuing care. Thank you for allowing us to help in meeting your health care needs. Sincerely, Dr. Crowe Interpreting Radiologist [facility] (Normal over 40) [facility] SCREENING Observed: 11/28/2017 Status: F Source: [place] 11:08 AM [facility] REPOSITORY * * *Final Report* * * DATE OF EXAM: Nov 28 2017 11:08AM WOW 0581 - [facility] SCREENING / PROCEDURE REASON: Breast cancer screening by mammogram * * * * Physician Interpretation * * * * RESULT: #[id number] - [facility] SCREENING BILATERAL DIGITAL SCREENING MAMMOGRAM WITH CAD: [...] 12/13/2015 mammogram, 12/06/2014 mammogram, 10/02/2013 mammogram - [facility], and 05/02/2012 mammogram - [facility]. There are scattered fibroglandular elements in both breasts. No significant masses, calcifications, or other findings are seen in either breast. There has been no significant interval change. IMPRESSION: NEGATIVE There is no mammographic evidence of malignancy.A 1 year screening mammogram is recommended. Macario staples/rachel:11/28/2017 12:20:21 Senior Technical Support Analyst: Amanda DELATORRE)(Ria), [facility] letter sent: Normal over 40 [...] Health, Family Medicine, and Medical/Surgical Oncology, the [facility] has carefully reviewed the data and reached [...] their providers when to stop screening mammograms. Bad Work Gatherer: Rachel Transcribe Date/Time: Nov 28 2017 10:48A Dictated by: MACARIO CROWE MD This examination was interpreted and the report reviewed and electronically signed by: MACARIO CROWE MD on Nov 28 2017 12:20PM EST [id number] FECAL OCCULT BLD Collected: 11/28/2017 Status: F Source: [facility] 9:30 AM [facility] REPOSITORY TYPE CODE TESTS RESULT OUT OF REFERENCE UNITS RANGE LAB IFO Negative Immuno Negative FOB Result Comment: This test was developed and its performance characteristics determined by [facility]'s Nabil Chaparro [facility] Pathology and Laboratory Medicine [place] ([facility]). It has not been cleared or approved by the FDA. -[facility] is regulated under CLIA as qualified to perform high-complexity testing. This test is used for clinical purposes. It should not be regarded as investigational or for research. Performed By: #### IFOBT #### [facility] [address] [place], [place] [address] PROGRESS Observed: 11/27/2017 Status: COMPLETED Source: [place] 5:50 PM [facility] [place] REPOSITORY HNO ID: [id number] Author: Anuj Hanson Service: (none) Author Type: [...] MD CNOV Observed: 11/27/2017 Status: COMPLETED Source: [place] 5:40 PM [facility] Office Visit (INTMWS) STEPHANIE MOORE ([id number]) 1960 F Date Time Provider Department 11/27/17 [...] [D68.51] Colon cancer screening [Z12.11] Order(s):DARWIN SCREENING [[id number]] Order #: [id number] FUTURE FECAL OCCULT BLOOD TEST [SQIFOBT] Order #: [id number] FUTURE Prescriptions as of 11/27/2017 Sig: WARFARIN [...] of lower limb [G90*INVALID FOR* NEURALGIA/NEURITIS NOS [PCO8435] INVALID FOR* MONONEURITIS LEG NOS [G57.90] INVALID [...] 11/27/17 PROGRESS Observed: 11/25/2017 Status: COMPLETED Source: [place] 1:45 PM [facility] [place] REPOSITORY HNO ID: [id number] Author: Joe Cervantes Service: (none) Author Type: [...] met Beta brenda for ASHD with prior [place] or prior LVEF<40 (NQF 0070) - N/A [...] in the near future. Echocardiogram done at [facility] was normal. LEOPOLDO was recommended given her age and history of hypercoagulable state. She could not have this done at [place] due to equipment malfunction. She was transferred to [facility]. Transesophageal echo there was some equivocal. 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 Echocardiogram at [facility] lowest was reportedly negative for mfvqj-yn-dqis shunt. There is no significant valvular disease. Carotid Doppler examination showed no extracranial disease . Angiography shows an intracranial right ICA lesion. Recent labs reviewed . Renal function is normal. LDL is 56. Transesophageal echo at [facility] showed the following : LEOPOLDO 10/01/2017: [...] MD CNOV Observed: 11/25/2017 Status: COMPLETED Source: [place] 12:45 PM [facility] Office Visit (CAWSTR) STEPHANIE MOORE ([id number]) 1960 F Date Time Provider Department 11/25/17 [...] met Beta brenda for ASHD with prior [place] or prior LVEF<40 (NQF 0070) - N/A [...] in the near future. Echocardiogram done at [facility] was normal. LEOPOLDO was recommended given her age and history of hypercoagulable state. She could not have this done at [place] due to equipment malfunction. She was transferred to [facility]. Transesophageal echo there was some equivocal. 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 Echocardiogram at [facility] lowest was reportedly negative for elrqk-qt-vmyw shunt. There is no significant valvular disease. Carotid Doppler examination showed no extracranial disease . Angiography shows an intracranial right ICA lesion. Recent labs reviewed . Renal function is normal. LDL is 56. Transesophageal echo at [facility] showed the following : LEOPOLDO 10/01/2017: [...] ANUJ HANSON MD Referring Provider: BERHANE LUKE ([facility]) [[id number]] Allergies As of Date: 11/25/2017 Noted Allergy [...] of lower limb [G90*INVALID FOR* NEURALGIA/NEURITIS NOS [RMQ7428] INVALID FOR* MONONEURITIS LEG NOS [G57.90] INVALID [...] 11/26/17 PROGRESS Observed: 11/20/2017 Status: COMPLETED Source: [place] 2:31 PM [facility] [place] REPOSITORY HNO ID: [id number] Author: Dwayne Holt Service: (none) Author Type: [...] Plan PROGRESS Observed: 11/20/2017 Status: COMPLETED Source: [place] 1:33 PM [facility] [place] REPOSITORY HNO ID: [id number] Author: Dwayne Holt Service: (none) Author Type: Physician Type: Progress Notes Filed: 11/20/2017 3:49 PM Note Text: Stephanie Moore CCF#: [id number] Date of Service: 11/20/2017 Primary Care Provider: [...] or palpitations. Sought medical care at ED [place]~ 2 weeks after initial presenting symptoms with dizziness/gait disturbance, cognitive memory/confusion issues, headache and L arm and facial weakness. Initial imaging demonstrated right frontal (cortical) infarction. Transferred to [facility]; TTE reportedly hegative for R->L shunt; [...] CTA head and neck 10/31/17 performed at [facility] suggests severe right supraclinoid carotid stenosis. 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 Control Center Operator, Diagnostic Radiology Fellowship Director, Endovascular Neurosurgery / [address] [place] [address] Office: CNOV Observed: 11/20/2017 Status: COMPLETED Source: [place] 12:40 PM [facility] Office Visit (NSEN) TERESASTEPHANIE Alan ([id number]) 1960 F Date Time Provider Department 11/20/17 12:40 PM DWAYNE HOLT [facility] During your visit today, we recorded the following information about you: Pulse Respiration Blood pressure Weight 70/minute 18/minute 122/83 99.3 kg Height 1.64 m Dwayne Holt MD 11/20/2017 3:49 PM Signed Stephanie Moore [facility]#: [id number] Date of Service: 11/20/2017 Primary Care Provider: [...] or palpitations. Sought medical care at ED [place]~ 2 weeks after initial presenting symptoms with dizziness/gait disturbance, cognitive memory/confusion issues, headache and L arm and facial weakness. Initial imaging demonstrated right frontal (cortical) infarction. Transferred to [facility]; TTE reportedly hegative for R->L shunt; [...] CTA head and neck 10/31/17 performed at [facility] suggests severe right supraclinoid carotid stenosis. 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 Need for her to obtain MRI Dwayne Holt M.D. Control Center Operator, Diagnostic Radiology Fellowship Director, Endovascular Neurosurgery / [facility] [address] [place], [place] [id number] Office: Dwayne Holt MD 11/20/2017 3:49 PM [...] send CD copy of MRI performed at [place] on 10/09/[address] Holt's office. Pre angio and LP instructions reviewed including: -- pre-procedure labs to be drawn -- fasting post MN, clear liquids until 2 hours before -- take usual meds including ASA except HOLD coumadin x 3 days -- retail delivery driver present for discharge -- at least 2-3 hrs bed rest recovery/observation Referring Provider: TAMARA WADSWORTH [[id number]] Allergies As of Date: 11/20/2017 Noted Allergy [...] [E66.9] Order(s):CONSULT TO NEUROLOGY [9019] Order #: [id number]: 1 CONSULT TO RHEUM/IMMUN DISEASE [9039] Order #: [id number]: 1 EEG LONG [7700870] Order #: [id number] IR LP FOR DRAINAGE (PRESSURE) [[id number]] Order #: [id number] IR CEREBRAL ARCH AND THREE VESSEL [0807065] Order #: [id number] Prescriptions as of 11/20/2017 Sig: WARFARIN 5 [...] of lower limb [G90*INVALID FOR* NEURALGIA/NEURITIS NOS [NSP7087] INVALID FOR* MONONEURITIS LEG NOS [G57.90] INVALID [...] send CD copy of MRI performed at [place] on 10/09/[address] Holt's office. Pre angio and LP instructions reviewed including: -- pre-procedure labs to be drawn -- fasting post MN, clear liquids until 2 hours before -- take usual meds including ASA except HOLD coumadin x 3 days -- retail delivery driver present for discharge -- at least 2-3 hrs bed rest recovery/observation Encounter Status:Closed by DWAYNE HOLT MD on 11/20/17 RE-EVALUATION - PT (1) Observed: 11/20/2017 Status: F Source: [place] 12:07 PM [facility] REPOSITORY [facility] [address] [place], [place] [address] Fax REEVALUATION / MEDICARE RECERTIFICATION PHYSICAL THERAPY MR#: [id number] Acct: [id number] Name: SOLISSTEPHANIE Steen Rep #: [id number] : 1960 57 From: Alfredo Shirley DPT [...] [facility] Objective/Function: pt completed full treatment with no [...] do not hesitate to contact me at [phone] by phone or if you have questions or concerns regarding this new plan of care! Sincerely, Alfredo Shirley <Electronically signed by Alfredo Shirley DPT> 11/20/17 1207 CC: LESLIE Luke; Anuj Hanson MD CLS Signed For Medicare only, by signing this I certify the plan of care. Physicians Signature Date INITAL EVALUATION (1) Observed: 11/11/2017 Status: F Source: [place] - PT 1:54 PM [facility] REPOSITORY [facility] [address] [place] [address] Fax REHABILITATION SERVICES INITIAL EVALUATION MR#: [id number] Acct: [id number] Name: STEPHANIE MOORE Rep #: [id number] : 1960 57 From: Alfredo Shirley DPT Referring Dr.: LESLIE Luke Status: REG R Insurance: [facility] SELF PAY INSURANCE Patient's Visit Information [...] to be FAXED BACK to us at [phone] for Medicare purposes. Please let me know if there are questions or concerns regarding this plan of care. Physician Signature: Date: <Electronically signed by Alfredo Shirley DPT> 11/11/17 1354 CC: LESLIE Luke; Anuj Hanson MD CLS Signed For Medicare only, by signing this I certify the plan of care. Physicians Signature Date PROTIME Collected: 11/11/2017 Status: F Source: [place] 11:40 AM [facility] TYPE CODE TESTS RESULT OUT OF RANGE REFERENCE UNITS LAB PSEC 9.7-13.0 sec High PT Sec 25.1 LAB INR 0.9-1.3 High PT INR 2.5 Result Comment: Vitamin K Antagonist (VKA) Therapeutic Range: INR 2 to 3 (Target INR of 2.5) Note: For patients treated with VKA drugs, such as warfarin, the [place] [employer] 2012 Guideline recommends [...] Chest 2012, 141:7S-47S Katya RA, et al. [facility] 2017, 70: 252-289 Performed By: #### PT #### [facility] [address] [address] PROTIME Collected: 11/01/2017 Status: F Source: [place] 10:00 AM [facility] TYPE CODE TESTS RESULT OUT OF RANGE REFERENCE UNITS LAB PSEC 9.7-13.0 sec High PT Sec 16.8 LAB INR 0.9-1.3 High PT INR 1.6 Result Comment: Vitamin K Antagonist (VKA) Therapeutic Range: INR 2 to 3 (Target INR of 2.5) Note: For patients treated with VKA drugs, such as warfarin, the [place] [employer] 2012 Guideline recommends [...] Chest 2012, 141:7S-47S Katya HERNANDEZ, et al. [facility] 2017, 70: 252-289 Performed By: #### PT #### [facility] [address] [place], [place] [address] PROGRESS Observed: 10/31/2017 Status: COMPLETED Source: [place] 4:11 PM [facility] REPOSITORY HNO ID: [id number] Author: Romy Calero Ct Service: (none) Author [...] W IVCON Observed: 10/31/2017 Status: F Source: [place] 3:35 PM [facility] * * *Final Report* * * DATE OF EXAM: Oct 31 2017 3:35PM [facility] 0024 - CTA NECK W IVCON [...] vertebral arteries, the basilar artery, and the delivery rn are patent and within normal limits. IMPRESSION: Right anterior hemispheric remote infarct, possibly watershed distribution on the border between right MCA and KARLEY territories. Severe stenosis of the right ICA terminus. Decreased caliber right KARLEY branches compared to the left. 0% bilateral ICA narrowing by NASCET criteria Bad Work Gatherer: SAM Transcribe Date/Time: Oct 31 2017 3:39P Dictated by : PATY SANTOS MD This examination was interpreted and the report reviewed and electronically signed by: PATY SANTOS MD on Oct 31 2017 3:43PM EST [id number] CTA HEAD WO/W IVCON Observed: 10/31/2017 Status: F Source: [place] 3:35 PM [facility] * * *Final Report* * * DATE OF EXAM: Oct 31 2017 3:35PM [facility] 0023 - CTA HEAD WO/W IVCON [...] vertebral arteries, the basilar artery, and the delivery rn are patent and within normal limits. IMPRESSION: Right anterior hemispheric remote infarct, possibly watershed distribution on the border between right MCA and KARLEY territories. Severe stenosis of the right ICA terminus. Decreased caliber right KARLEY branches compared to the left. 0% bilateral ICA narrowing by NASCET criteria Bad Work Gatherer: SAM Transcribe Date/Time: Oct 31 2017 3:39P Dictated by : PATY SANTOS MD This examination was interpreted and the report reviewed and electronically signed by: PATY SANTOS MD on Oct 31 2017 3:43PM EST [id number] PROGRESS Observed: 10/31/2017 Status: COMPLETED Source: [place] 8:02 AM [facility] HNO ID: [id number] Author: Berhane (Turfgrass Management Professor) Marly Service: (none) Author Type: Nurse Practitioner Type: Progress Notes Filed: 10/31/2017 10:11 AM Note Text: CC: Patient presents with: Recheck: Follow up HPI Stephanie Dayanna Moore is a 57 year old female who presents today with for follow up of possible carotid artery stenosis per [facility] imaging studies following CVA August 2017. [...] for carotid stenosis per imaging done at [facility] as below: Carotid duplex ultrasound 09/19/2017: [...] There is no demonstrated aneurysm of the [place]. ? IMPRESSION: A significant focal [...] Diagnosis Date - DVT (deep venous thrombosis) ([facility]) 2009 - Dysthymic disorder Depression (non-psychotic) - [...] carotid stenosis, per imaging studies performed at [facility]- no carotid stenosis was identified as [...] as previously planned, scheduled 11/25/17 Berhane Luke APRN.ELEMENTARY READING TUTOR Prescription instructions reviewed with patient as applicable. Potential red flag symptoms discussed with the patient. Reviewed appropriate action plan to take if red flag symptoms occur. Patient agreeable to treatment plan. CNOV Observed: 10/31/2017 Status: COMPLETED Source: [place] 8:00 AM [facility] Office Visit (INTMWS) STEPHANIE MOORE ([id number]) 1960 F Date Time Provider Department 10/31/17 8:00 AM BERHANE LUKE (ELEMENTARY READING TUTOR) INTMWS During your visit today, we recorded the following information about you: Pulse Respiration Blood pressure Weight 68/minute 16/minute 126/74 99.3 kg Berhane Luke APRN.CNP 10/31/2017 10:11 AM Signed CC: Patient presents with: Recheck: Follow up HPI Stephanie Alan Teresa is a 57 year old female who presents today with for follow up of possible carotid artery stenosis per [facility] imaging studies following CVA August 2017. [...] for carotid stenosis per imaging done at [facility] as below: Carotid duplex ultrasound 09/19/2017: [...] There is no demonstrated aneurysm of the [place]. ? IMPRESSION: A significant focal [...] Diagnosis Date - DVT (deep venous thrombosis) ([facility]) 2009 - Dysthymic disorder Depression (non-psychotic) - [...] carotid stenosis, per imaging studies performed at [facility]- no carotid stenosis was identified as [...] as previously planned, scheduled 11/25/17 Berhane Marly, STOCK PREPARATION OPERATOR.ELEMENTARY READING TUTOR Prescription instructions reviewed with patient as applicable. Potential red flag symptoms discussed with the patient. Reviewed appropriate action plan to take if red flag symptoms occur. Patient agreeable to treatment plan. Referring Provider: ANUJ HANSON [[id number]] Allergies As of Date: 10/31/2017 Noted Allergy [...] foramen ovale [Q21.1] Order(s):CTA HEAD WO/W IVCON [9379125] Order #: [id number] FUTURE CTA NECK W IVCON [[id number]] Order #: [id number] FUTURE iv contrast (will be provided with [...] CONSULT TO VASCULAR SURGERY [9042] Order #: [id number]: 1 Prescriptions as of 10/31/2017 Sig: ASPIRIN [...] of lower limb [G90*INVALID FOR* NEURALGIA/NEURITIS NOS [DYU4785] INVALID FOR* MONONEURITIS LEG NOS [G57.90] INVALID [...] 10/31/17 PROGRESS Observed: 10/25/2017 Status: COMPLETED Source: [place] 1:37 PM [facility] HNO ID: [id number] Author: Pauly Lobo LPN Service: (none) Author [...] week. PROGRESS Observed: 10/25/2017 Status: COMPLETED Source: [place] 1:11 PM [facility] HNO ID: [id number] Author: Adele Dawn LPN Service: (none) Author Type: (none) Type: Progress Notes Filed: 10/25/2017 1:39 PM Note Text: Left message for patient to call office back and speak with a triage nurse regarding coumadin instructions. Adele Dawn LPN PROGRESS Observed: 10/25/2017 Status: COMPLETED Source: [place] 1:00 PM [facility] HNO ID: [id number] Author: Anuj Hanson Service: (none) Author Type: Physician Type: Progress Notes Filed: 10/25/2017 1:39 PM Note Text: Please ask patient to get on a regimen of 5 mgs on MWF and 2.5 mgs the rest of the week Recheck in 1 week PROGRESS Observed: 10/25/2017 Status: COMPLETED Source: [place] 11:58 AM [facility] HNO ID: [id number] Author: Arlene Pacheco RN Service: (none) Author Type: (none) Type: Progress Notes Filed: 10/25/2017 12:00 PM Note Text: patient had inr completed at [facility] patients inr is 1.4 (patients inr range [...] thanks PROGRESS Observed: 10/18/2017 Status: COMPLETED Source: [place] 2:55 PM [facility] HNO ID: [id number] Author: Pauly Lobo LPN Service: (none) Author [...] daily. PROGRESS Observed: 10/18/2017 Status: COMPLETED Source: [place] 11:12 AM [facility] HNO ID: [id number] Author: Anuj Hanson Service: (none) Author Type: Physician Type: Progress Notes Filed: 10/18/2017 2:57 PM Note Text: Please ask patient to take 2.5 mg daily for a week and recheck in a weeks time PROGRESS Observed: 10/18/2017 Status: COMPLETED Source: [place] 8:15 AM [facility] HNO ID: [id number] Author: Arlene Pacheco RN Service: (none) Author Type: (none) Type: Progress Notes Filed: 10/18/2017 8:17 AM Note Text: patient had inr completed at [facility] patients inr is 1.6 (patients inr ranges [...] 10/25/17 PROGRESS Observed: 10/17/2017 Status: COMPLETED Source: [place] 1:24 PM [facility] HNO ID: [id number] Author: Sophie Mejía Cma Service: (none) Author [...] Cma PROGRESS Observed: 10/17/2017 Status: COMPLETED Source: [place] 1:23 PM [facility] HNO ID: [id number] Author: Sophie Gino Gant Service: (none) Author Type: (none) Type: Progress Notes Filed: 10/17/2017 1:25 PM Note Text: Discussed in teamlet. Patient is on coumadin. No need for Aspirin. Opted out. CNPTOUTREACH Observed: 10/17/2017 Status: COMPLETED Source: [place] 12:00 AM [facility] Patient Outreach (FAMPWS) STEPHANIE MOORE ([id number]) 1960 F Date Time Provider Department 10/17/17 SOPHIE MEJÍA ([facility]) FAMPWS During your visit today, we recorded [...] Assessed Reason for Visit: PHMA/Care Gap Outreach [1995] Prescriptions as of 10/17/2017 Sig: ASPIRIN 81 [...] of lower limb [G90*INVALID FOR* NEURALGIA/NEURITIS NOS [SOZ8078] INVALID FOR* MONONEURITIS LEG NOS [G57.90] INVALID [...] 10/17/17 CNCO Observed: 10/16/2017 Status: COMPLETED Source: [place] 12:00 AM [facility] REPOSITORY Letter Text [address] [place] [address] [phone] 10/16/2017 Stephanie Moore [address] [facility] [address] Dear Ms. Moore: Due to a change in the provider's schedule, it has been necessary to reschedule your 01/03/18 appointment. Enclosed please find a new appointment reminder that will replace the one previously sent to you. If this appointment is not convenient for you, please contact our office at [phone]. Thank you for choosing the [facility] as your Healthcare Provider. Sincerely, Appointment Office Enclosure PROGRESS Observed: 10/15/2017 Status: COMPLETED Source: [place] 1:36 PM [facility] HNO ID: [id number] Author: Manda Oropeza LPN Service: (none) Author Type: (none) Type: Progress Notes Filed: 10/15/2017 1:37 PM Note Text: Patient notified of provider instructions. Appointment made for Saturday in coumadin clinic for recheck. PROGRESS Observed: 10/15/2017 Status: COMPLETED Source: [place] 12:36 PM [facility] HNO ID: [id number] Author: Anuj Hanson Service: (none) Author Type: Physician Type: Progress Notes Filed: 10/15/2017 1:37 PM Note Text: Please ask her to hold today and and tomorrow then take , 2.5 mgs on , recheck on Saturday. PROGRESS Observed: 10/15/2017 Status: COMPLETED Source: [place] 12:08 PM [facility] HNO ID: [id number] Author: Arlene Pacheco RN Service: (none) Author Type: (none) Type: Progress Notes Filed: 10/15/2017 12:10 PM Note Text: patient had inr completed at [facility] patients inr is 5.3 (patients inr range [...] GENERAL EVALUATION Observed: 10/14/2017 Status: F Source: [place] 8:54 AM [facility] REPOSITORY [facility] [address] [place] [address] Fax REHABILITATION SERVICES INITIAL EVALUATION MR#: [id number] Acct: [id number] Name: STEPHANIE MOORE Rep #: [id number] : 1960 57 From: Joanna Arambula Referring [...] noted in weeks. 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 Please let me know if there are questions or concerns regarding this plan of care. Physician Signature: Date: <Electronically signed by Joanna Arambula > 10/14/17 0854 CC: LESLIE Luke; Anuj Hanson MD KMMichael Signed For Medicare only, by signing this I certify the plan of care. Physicians Signature Date CNOVSP Observed: 10/11/2017 Status: COMPLETED Source: [place] 1:30 PM [facility] Visit (SP) Office (MARVA) STEPHANIE MOORE ([id number]) 1960 F Date Time Provider Department 10/11/17 [...] daughter she presented to emergency department at [facility]. Initial CT scan demonstrated hypoattenuation [...] There is no demonstrated aneurysm of the [place]. IMPRESSION: A significant focal stenosis [...] lamellar necrosis Patient was then transferred to [facility] due to in availability of LEOPOLDO at [facility]. LEOPOLDO 10/01/2017: 1. Left ventricle: [...] No jaundice or rash. No petechiae. NEUROLOGIC: transportation inspector II-XII are grossly intact. No focal motor [...] have gotten missed with her transfer from [facility] to [facility]. Jose Beltran DO Addendum [phone]: Earlier today spoke with Dr. Hanson and [...] Tg [place] LPN Referring Provider: BERHANE LUKE ([facility]) [[id number]] Allergies As of Date: 10/11/2017 Noted Allergy [...] of lower limb [G90*INVALID FOR* NEURALGIA/NEURITIS NOS [CNX3122] INVALID FOR* MONONEURITIS LEG NOS [G57.90] INVALID [...] 10/14/17 PROGRESS Observed: 10/11/2017 Status: COMPLETED Source: [place] 12:49 PM [facility] HNO ID: [id number] Author: Jose Beltran Service: (none) Author Type: [...] daughter she presented to emergency department at [facility]. Initial CT scan demonstrated hypoattenuation [...] There is no demonstrated aneurysm of the [place]. IMPRESSION: A significant focal stenosis [...] lamellar necrosis Patient was then transferred to [facility] due to in availability of LEOPOLDO at [facility]. LEOPOLDO 10/01/2017: 1. Left ventricle: [...] No jaundice or rash. No petechiae. NEUROLOGIC: transportation inspector II-XII are grossly intact. No focal motor weakness. MUSCULOSKELETAL: No muscle wasting. 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 Jose Beltran DO Addendum [phone]: Earlier today spoke with Dr. Hanson and I spoke with the patient just now regarding the focal narrowing of the a branch of the internal right carotid. Dr. Hanson will be seeing the patient in the near future to coordinate referral to neurovascular specialist for recommendations. Jose Beltran DO BASIC METABOLIC PANL Collected: 10/10/2017 Status: F Source: [place] 10:00 AM [facility] TYPE CODE TESTS RESULT OUT OF REFERENCE UNITS RANGE LAB GLU 74-99 mg/dL Glucose 94 Result Comment: The [place] Diabetes Association (ADA) provides guidance for cutoff [...] Standards of Medical Care in Diabetes 2016, [place] [employer]. Diabetes Care. 2016.39(Suppl 1). LAB [...] GFR. Performed By: #### BMP, LIPB #### [facility] [address] [place], [place] [address] LIPID PANEL, BASIC Collected: 10/10/2017 Status: F Source: [place] 10:00 AM [facility] TYPE CODE TESTS RESULT OUT OF [...] Desk Reference: National Heart, Lung, and Blood [place]. National Institutes of Health. 2001: NIH Publication No. 01-3305. 2. An International Atherosclerosis Society position paper: global recommendations for the management of dyslipidemia: executive summary, Atherosclerosis. 2014: 232(2):410-413. Performed By: #### BMP, LIPB #### [facility] [address] [place] [id number] PROGRESS Observed: 10/08/2017 Status: COMPLETED Source: [place] 4:48 PM [facility] HNO ID: [id number] Author: Arlene Pacheco RN Service: (none) Author Type: (none) Type: Progress Notes Filed: 10/08/2017 4:49 PM Note Text: per written order by dr copeland she agrees with information PROGRESS Observed: 10/08/2017 Status: COMPLETED Source: [place] 2:55 PM [facility] HNO ID: [id number] Author: Arlene Pacheco RN Service: (none) Author Type: (none) Type: Progress Notes Filed: 10/08/2017 2:56 PM Note Text: patient had inr completed at [facility] patients inr is 2.9 (patients inr range [...] INR. PROGRESS Observed: 10/04/2017 Status: COMPLETED Source: [place] 5:17 PM [facility] HNO ID: [id number] Author: Berhane Luke Service: (none) Author Type: Nurse Practitioner Type: Progress Notes Filed: 10/04/2017 5:19 PM Note Text: Patient instructed to increase coumadin to 10mg tonight and tomorrow then resume 5mg daily. Concerned patient will not be therapeutic by the time Lovenox injections are complete. Berhane Luke APRN.CNP PROGRESS Observed: 10/04/2017 Status: COMPLETED Source: [place] 12:45 PM [facility] HNO ID: [id number] Author: Arlene Pacheco RN Service: (none) Author Type: (none) Type: Progress Notes Filed: 10/04/2017 12:46 PM Note Text: patient had inr completed at [facility] patients inr is 1.4 (patients inr range is 2.0-3.0) patient is currently taking lovenox injection twice daily and coumadin 5mg daily patients last dose change unsure as patient is new to the patient has had no changes in medication and no change in diet patient has appt with SECTIONAL BELT MOLD ASSEMBLER Berhane Luke and has been instructed to discuss dosing at that appt patient has been scheduled for a follow up inr on Saturday (10/08/17) PROGRESS Observed: 10/04/2017 Status: COMPLETED Source: [place] 11:35 AM [facility] HNO ID: [id number] Author: Berhane Luke Service: (none) Author Type: Nurse Practitioner Type: Progress Notes Filed: 10/07/2017 9:49 AM Note Text: CC: Patient presents with: Recheck: Hosp follow up, CVA.Patient statess having a lot of heartburn and headaches HPI Stephanie Moore is a 57 year old female who presents today with daughter for Hospital follow up. Patient was adimitted to [facility] on 09/19- 09/30/17. Patient presented to [...] equipment malfunction and patient was transferred to [facility] for further care. During patient's short stay at [facility], she was evaluated hematology where she was [...] Diagnosis Date - DVT (deep venous thrombosis) ([facility]) 2009 - Dysthymic disorder Depression (non-psychotic) - [...] CONSULT TO PHYSICAL THERAPY - CONSULT TO MECHANIC FIELD SERVICE - Follow up in 1 month - [place] paperwork to be filled out as patient will need outpatient therapy and should not drive at this time 2. Left-sided weakness - ICD9: 728.87, ICD10: R53.1 - Assessment and plan as above - CONSULT TO PHYSICAL THERAPY - CONSULT TO MECHANIC FIELD SERVICE 3. Factor 5 Leiden mutation, heterozygous (HCC) [...] AB and KARLEY IgM all positive during [facility] admisison - CONSULT TO RHEUM/IMMUN DISEASE - CONSULT TO CARDIOLOGY Berhane Luke APRN.CNP Prescription instructions reviewed with patient as applicable. Potential red flag symptoms discussed with the patient. Reviewed appropriate action plan to take if red flag symptoms occur. Patient agreeable to treatment plan. CNOV Observed: 10/04/2017 Status: COMPLETED Source: [place] 11:20 AM [facility] [place] [place] Visit (INTMWS) MERCEDSTEPHANIE STILL ([id number]) 1960 F Date Time Provider Department 10/04/17 11:20 AM BERHANE LUKE ([facility]) INTMWS During your visit today, we [...] Hospital follow up. Patient was adimitted to [facility] on 09/19- 09/30/17. Patient presented to [...] equipment malfunction and patient was transferred to [facility] for further care. During patient's short stay at [facility], she was evaluated hematology where she was [...] Diagnosis Date - DVT (deep venous thrombosis) ([facility]) 2009 - Dysthymic disorder Depression (non-psychotic) - [...] CONSULT TO PHYSICAL THERAPY - CONSULT TO MECHANIC FIELD SERVICE - Follow up in 1 month - FMLA paperwork to be filled out as patient will need outpatient therapy and should not drive at this time 2. Left-sided weakness - ICD9: 728.87, ICD10: R53.1 - Assessment and plan as above - CONSULT TO PHYSICAL THERAPY - CONSULT TO MECHANIC FIELD SERVICE 3. Factor 5 Leiden mutation, heterozygous (HCC) [...] AB and KARLEY IgM all positive during [facility] admisison - CONSULT TO RHEUM/IMMUN DISEASE - CONSULT TO CARDIOLOGY Berhane Luke APRN.ELEMENTARY READING TUTOR Prescription instructions reviewed with patient as applicable. [...] [D68.51] Autoimmune disorder (HCC) [D89.89] Order(s):INR (POC) [2641826] Order #: [id number]. #:[id number] famotidine (PEPCID AC) 20 mg tabletTake 1 tablet by mouth twice daily.Disp: 60 tabletRfl: 2 CONSULT TO RHEUM/IMMUN DISEASE [4689] Order #: [id number]: 1 CONSULT TO HEMATOLOGY [8667] Order #: [id number]: 1 CONSULT TO CARDIOLOGY [0619] Order #: [id number]: 1 CONSULT SPEECH THERAPY [9375498] Order #: [id number]: 1 CONSULT TO PHYSICAL THERAPY [0073] Order #: [id number]: 1 CONSULT TO MECHANIC FIELD SERVICE [139663] Order #: [id number]: 1 Prescriptions as of 10/04/2017 Sig: FAMOTIDINE [...] of lower limb [G90*INVALID FOR* NEURALGIA/NEURITIS NOS [ZKP1326] INVALID FOR* MONONEURITIS LEG NOS [G57.90] INVALID [...] DISCHARGE SUMMARY Observed: 10/02/2017 Status: F Source: [place] 8:06 PM [facility] REPOSITORY [facility] Medical Records Department [address] [place] [address] Discharge Summary 10/02/171953 MR#: [id number] Acct: [id number] Name: STEPHANIE MOORE Rep #: [id number] : 1960 57 From: Petar Villalta DO PCP: Anuj Hanson MD Status: DIS IN Y Location: [place] [address] Discharge Date and Diagnosis Date of Admission: [...] F seen in the emergency room at [facility] with chief complaint of headache and [...] be in stable condition for transfer to [facility] for further correction Medications: Medications to take at Discharge ALPRAZolam [...] Indicated Code Visit Inpatient E AND M: 97409 Disch Hosp 10/02/172005 <Electronically signed by Petar Villalta DO> Date Petar Villalta DO Cosigner Signature (if applicable): Date CC: Anuj Hanson MD; Petar Tereletsky DO Signed ECHO 2D/3D LEOPOLDO W/WO Observed: 10/01/2017 Status: F Source: [employer] CONTRAST 10:52 AM SYSTEM REPOSITORY Patient Name: STEPHANIE MOORE Ultrasound Exam Date/Time 10/01/2017 11:45:37 EDT Exam Echo 2D/3D LEOPOLDO w/wo Contrast Ordering Physician JOSE COSTA MICHELE L Accession Number [id number] Reason For Exam Ischemic frontal lobe stroke 09/19 Report TRANSESOPHAGEAL ECHOCARDIOGRAM PATIENT: Stephanie Moore STUDY DATE: 10/01/2017 : 1960 AGE: 57 HT/WT: 167.6 cm (66 95.9 kg (211 in) lb) GENDER: F BP: 141 / 76 LOCATION: [facility] PATIENT Inpatient [facility] STATUS: *ORDERING PHYSICIAN: * *FELLOW: * Taylor Ward Michele *RN: * Keyla Amezcua, CLAYTON *READING PHYSICIAN: * Silvio *SHIPYARD PAINTER APPRENTICE: * Diana Brown MD RDMS,AB,RDCS,AE, PE, RVT,VT [...] BROWN APTT Collected: 10/01/2017 Status: F Source: [facility] 12:45 AM SYSTEM REPOSITORY TYPE CODE TESTS RESULT OUT OF RANGE REFERENCE UNITS LAB PTTA 20.0-30.5 s Normal APTT 27.6 Result Comment: NOTE: The therapeutic time for Heparin anticoagulation, based on Xa activity inhibition, is an APTT of 46-80 seconds. Performed By: #### BMP3M, APTT, PT #### [facility] [address] [place] [phone] PROTHROMBIN TIME Collected: 10/01/2017 Status: F Source: [facility] 12:45 AM SYSTEM REPOSITORY TYPE CODE TESTS [...] Performed By: #### BMP3M, APTT, PT #### [facility] [address] [place] [phone] BASIC METABOLIC PANEL Collected: 10/01/2017 Status: F Source: [facility] 12:44 AM SYSTEM REPOSITORY TYPE CODE TESTS [...] Performed By: #### BMP3M, APTT, PT #### [facility] [address] [place] [phone] 12 LEAD ELECTROCARDIOGRAM Observed: 09/24/2017 Status: F Source: [place] 2:44 PM [facility] REPOSITORY [facility] Cardiovascular Services [address] [place] [address] 12 Lead EKG 09/19/17 1010 MR#: [id number] Acct: [id number] Name: STEPHANIE MOORE Rep #: [id number] : 1960 57 From: Jose Lopez MD [...] Normal ECG Confirmed by ANTONIO BRENNAN, JOSE ([id number]), fan mail editor GRACE WALTERS ([id number]) on 09/24/2017 2:44:13 PM Referred By: KAVITA Confirmed By:JOSE LOPEZ MD 09/24/17 1444 Date Jose Lopez MD CC: Anuj Hanson MD; Chata Phipps; Satish Jj MD Signed PROTEIN C, FUNCTIONAL Collected: 09/24/2017 Status: F Source: [place] 9:00 AM [facility] REPOSITORY TYPE CODE TESTS RESULT OUT OF RANGE REFERENCE UNITS LAB L3100.7325 73-180 % Normal PROT C, 137 Funct Result Comment: Performed at: - [facility] [id number] Pyrotechnician: Jeremi Momin MD, Phone: [phone] Performed at: - [facility] [address] [place], [place] [id number] Pyrotechnician: Nikita Arauz MD, Phone: [phone] Performed By: #### L3100.7325, L3300.0450, L3410.1999, L4500.1999 #### [facility] (refer to report for specific site) refer to report for address and phone number AT [facility] / Collected: 09/24/2017 Status: F Source: [place] IMMUNOL 9:00 AM [facility] REPOSITORY TYPE CODE TESTS RESULT [...] developed and its performance characteristics determined by [employer]. It has not been cleared or approved by the Food and Drug Administration. Performed By: #### L3100.7325, L3300.0450, L3410.1999, L4500 #### [facility] (refer to report for specific site) refer to report for address and phone number BETA-2 GLYCOPROT IGG, Collected: 09/24/2017 Status: F Source: Ria VASQUEZ 9:00 AM [facility] REPOSITORY TYPE CODE TESTS RESULT [...] Status: F Source: [place] ROSALIA 9:00 AM [facility] REPOSITORY TYPE CODE TESTS RESULT OUT OF RANGE REFERENCE UNITS LAB L4500.2100 . Normal FACTOR Comment II,DNA Result Comment: NEGATIVE No mutation identified. Comment: A point mutation ([id number]) in the factor II (prothrombin) gene is [...] mutations. This assay detects only the prothrombin V89830G mutation and does not measure genetic abnormalities [...] health care providers to discuss results at [phone] ([phone]). Methodology: DNA analysis of the Factor II gene was performed by PCR amplification followed by restriction analysis. The diagnostic sensitivity is >99% for both. All the tests must be combined with clinical information for the most accurate interpretation. Molecular-based testing is highly accurate, but as in any laboratory test, diagnostic errors may occur. This test was developed and its performance characteristics determined by [facility]. It has not been cleared or approved by the Food and Drug Administration. Poort SR, et al. Blood. 1996; 88:8610-6028. Rebekah BIRCH. Circulation. 2004; 110:e15-e18. Daria I, et al. Arterioscler Thromb Vasc Biol. 1999; 19:700-703. Ranjana Flannery, PhD, [facility] Sydnie Horton, PhD, [facility] Grace Holliday MMiloS., PhD, [facility] Carissa Marie, PhD, FAC Karmen Delgadillo, PhD, [facility] Montrell Lee, PhD, FAC Performed By: #### L3100.7325, L3300.0450, L3410.1999, L4500.1999 #### [facility] (refer to report for specific site) refer to report for address and phone number BRAIN WITHOUT Observed: 09/23/2017 Status: F Source: [place] CONTRAST 11:49 AM [facility] REPOSITORY [facility] Imaging Services [address] [place] [address] Brain without Contrast MR#: [id number] Acct: [id number] Name: STEPHANIE MOORE Rep #: [id number] : 1960 F 57 From: Sherman Larsen MD PCP: Anuj Hanson MD Status: ADM IN Study: Brain without Contrast Date of Exam: 09/23/17 Exam# [id number] Ordering Dr: Chata Phpips MD STUDY: MRI BRAIN WITHOUT CONTRAST REASON [...] , CC: Anuj Hanson MD; Chata Phipps Bad Work Gatherer: Signed CONSULTATION Observed: 09/23/2017 Status: F Source: [place] 7:43 AM [facility] REPOSITORY [facility] Medical Records Department [address] [place] [address] Consultation 09/20/17 1104 MR#: [id number] Acct: [id number] Name: STEPHANIE MOORE Rep #: [id number] : 1960 57 From: Otis Boucher MD PCP: Anuj Hanson MD Status: ADM IN Location: [place] [id number] Reason for Consult Date of Consultation: 09/20/17 [...] the connectors and wires. Psychiatric History: Anxiety MOBILE SALES TECHNICIAN History: No pertinent MOBILE SALES TECHNICIAN history Smoking Status: Former smoker Alcohol: None [...] had spinal cord stimulator placed in at [facility], removed in . will verify mri compatibility [...] F Source: [place] CONTRAST [place]ORT 12:00 AM [facility] Images were obtained outside of [facility] [id number] MR-BRAIN WITHOUT Observed: 09/23/2017 Status: F Source: [place] CONTRAST IMPORT 12:00 AM [facility] Images were obtained outside of [facility] [id number] CAROTID DUPLEX Observed: 09/21/2017 Status: F Source: [place] ULTRASOUND 2:55 PM [facility] REPOSITORY [facility] Cardiovascular Services [address] [place], [place] [address] [place] [address] Carotid Duplex Ultrasound 09/19/17 1504 MR#: [id number] Acct: [id number] Name: STEPHANIE MOORE Rep #: [id number] : 1960 57 From: Manny Shin MD Attending Dr: Chata Phipps Status: ADM IN Ordering Dr: Chata Phipps MD Date: 09/19/17 Location: [facility] Sex: F C Admitted: 09/19/17 Reason For [...] the left vertebral artery. Procedure Carotid Duplex 40554. The exam was diagnostic. Exam performed portable in patient room. Interpretation Summary No significant atherosclerotic plaque or stenosis noted in the internal carotid arteries bilaterally. Flow within the vertebral arteries is antegrade bilaterally. Ordering Physician: Chata Phipps Performed By: Domingo Lee RVT 09/21/17 1455 Date Manny Shin MD CC: Anuj Hanson MD; Chata Phipps Date Dictated: 09/19/17 1504 Date Transcribed: 09/21/17 1455 Bad Work Gatherer: Signed ABDOMEN SINGLE VIEW Observed: 09/21/2017 Status: F Source: [place] 12:07 PM [facility] REPOSITORY [facility] Imaging Services [address] [place] [address] Abdomen Single View MR#: [id number] Acct: [id number] Name: STEPHANIE MOORE Rep #: [id number] : 1960 F 57 From: Sylwia Menjivar MD PCP: Anuj Hanson MD Status: ADM IN Study: Abdomen Single View Date of Exam: 09/21/17 Exam# [id number] Ordering Dr: Chata Phipps MD ADDENDUM by Dwayne Ibarra MD on 09/23/17 at 1129 RAD/Abdomen Single View 09/23/17 1136 Date cc: Anuj Hanson MD; Chata Phipps * Signed ADDENDUM by Dwayne Ibarra MD on 09/23/17 at 1129 ADDENDUM The neurostimulator is a [employer] Senergy Model 7427. [employer] was contacted and [...] the exact brand is known from the agriculture inspector. Electronically Signed: Sylwia Menjivar MD at 13:21 [...] , CC: Anuj Hanson MD; Chata Phipps Bad Work Gatherer: Signed CR-ABDOMEN SINGLE VIEW Observed: 09/21/2017 Status: F Source: [place] IMPORT 12:00 AM [facility] Images were obtained outside of [facility] [id number] JAMES W/ REFLEX MULT Collected: 09/20/2017 Status: F Source: [place] CONFIRM 11:45 AM [facility] REPOSITORY TYPE CODE TESTS RESULT [...] ANTISCLER Normal <0.2 LAB L3410.1200 0.0-0.9 AI MINE ADMINISTRATOR SUPERVISOR Ab Normal <0.2 LAB L3410.1300 0.0-0.9 AI [...] Sm (anti-Sparks) SLE 15 - 30% --------- MINE ADMINISTRATOR SUPERVISOR Mixed Connective Tissue Disease 95% (U1 nRNP, SLE 30 - 50% anti-ribonucleoprotein) Polymyositis and/or Dermatomyositis 20% --------- Scl-70 (antiDNA Scleroderma (diffuse) 20 - 35% topoisomerase) Crest 13% --------- Alicia-1 Polymyositis and/or Dermatomyositis 20 - 40% --------- Centromere B Scleroderma - Crest variant 80% Performed at: - [facility] [address] [id number] Pyrotechnician: Jeevan Maldonado PhD, Phone: [phone] Performed By: #### L3100.5450 #### [facility] (refer to report for specific site) refer to report for address and phone number PROTEIN S DEFIC. Collected: 09/20/2017 Status: F Source: [place] PROFILE 11:45 AM [facility] REPOSITORY TYPE CODE TESTS RESULT [...] C DEFIC. Collected: 09/20/2017 Status: F Source: [facility] 11:45 AM [facility] REPOSITORY TYPE CODE TESTS RESULT OUT OF RANGE REFERENCE UNITS LAB L3100.7310 60-150 % Normal PROTEIN C 139 LAB L3100.7335 73-180 % Normal PROT C,FUNC 144 Performed By: #### L3100.7075, L3100.7275, L3100.8410, L3300.0500, L4500.0100, L4500.5000 #### [facility] (refer to report for specific site) refer to report for address and phone number ANTICARDIOLIPIN IGG, IGM Collected: 09/20/2017 Status: F Source: [place] 11:45 AM [facility] REPOSITORY TYPE CODE TESTS RESULT [...] 09/20/2017 Status: F Source: [place] 11:45 AM [facility] REPOSITORY TYPE CODE TESTS RESULT OUT OF RANGE REFERENCE UNITS LAB L3300.0500 75-135 % Normal AT3 FUNCTION 104 Result Comment: Direct Xa inhibitor anticoagulants such as rivaroxaban, apixaban and edoxaban will lead to spuriously elevated antithrombin activity levels possibly masking a deficiency. Performed at: BN - [facility] [id number] Pyrotechnician: Jeremi Momin MD, Phone: [phone] Performed at: - [facility] [id number] Pyrotechnician: Jeevan Maldonado PhD, Phone: [phone] Performed at: - [facility] [id number] Pyrotechnician: Nikita Arauz MD, Phone: [phone] Performed By: #### L3100.7075, L3100.7275, L3100.8410, L3300.0500, L4500.0100, L4500.5000 #### [facility] (refer to report for specific site) refer to report for address and phone number LUPUS ANTICOAGULANT COMP Collected: 09/20/2017 Status: F Source: [place] 11:45 AM [facility] REPOSITORY TYPE CODE TESTS RESULT [...] L3100.7075, L3100.7275, L3100.8410, L3300.0500, L4500.0100, L4500.5000 #### [facility] (refer to report for specific site) refer to report for address and phone number FACT Roxanna LEIDEN Collected: 09/20/2017 Status: F Source: [place] MUTATION 11:45 AM [facility] REPOSITORY TYPE CODE TESTS RESULT [...] homocysteine levels, or a Factor II/prothrombin mutation (I12102I). Additionally, for individuals found to be heterozygous for the Factor V Leiden mutation, presence of a second mutation, Factor V R2, further increases the risk if venous thrombosis. Contact [employer] Customer Service at for further information on both the Factor II (Prothrombin) DNA Analysis, and Factor V R2 DNA Analysis tests. Genetic counselors are available for health care providers to discuss results at [phone] ([phone]). Methodology: DNA analysis of the Factor V gene was performed by allele- specific PCR. The diagnostic sensitivity and specificity is >99% for both. Molecular-based testing is highly accurate, but as in any laboratory test, diagnostic errors may occur. All test results must be combined with clinical information for the most accurate interpretation. This test was developed and its performance characteristics determined by [employer]. It has not been cleared or approved [...] 09/20/2017 Status: F Source: [place] 6:00 AM [facility] REPOSITORY TYPE CODE TESTS RESULT [...] Lymph 2.96 Performed By: #### L100.0100 #### [facility] [address] [place], [address] LIPID PROFILE Collected: 09/20/2017 Status: F Source: [place] 6:00 AM [facility] REPOSITORY TYPE CODE TESTS RESULT [...] VLDL 15 Performed By: #### L500.4100 #### [facility] [address] [facility] [place], [address] BEDSIDE GLUCOSE Collected: 09/20/2017 Status: F Source: [place] 5:17 AM [facility] REPOSITORY TYPE CODE TESTS RESULT OUT OF RANGE REFERENCE UNITS LAB L501.080 70-110 mg/dL Normal BEDSIDE GLU 90 Result Comment: MANAGEMENT OF PATIENT CARE PER NURSING PROTOCOL Performed By: #### L501.080 #### [facility] Point of Care [address] [place] [address] CTA HEAD W/WO Observed: 09/20/2017 Status: F Source: [place] CONTRAST 5:12 AM [facility] REPOSITORY [facility] Imaging Services [address] [place] [address] CTA Head W/WO Contrast MR#: [id number] Acct: [id number] Name: STEPHANIE MOORE Rep #: [id number] : 1960 F 57 From: Jeremi Callahan MD PCP: Anuj Hanson MD Status: ADM IN Study: CTA Head W/WO Contrast Date of Exam: 09/20/17 Exam# [id number] Ordering Dr: Montrell Haywood MD STUDY: CTA [...] There is no demonstrated aneurysm of the [place]. CT/CTA Head W/WO Contrast IMPRESSION: A significant focal stenosis of the supraclinoid segment of the right internal carotid artery is noted with residual lumen diameter of 1 mm. No other significant intracranial arterial stenoses are detected. No arterial occlusions are seen. Electronically Signed: Jeremi Callahan MD at 6:12 EDT Tel , Service support , CC: Anuj Hanson MD; Montrell Haywood MD Bad Work Gatherer: Signed CTA NECK W/WO Observed: 09/20/2017 Status: F Source: [place] CONTRAST 5:12 AM [facility] REPOSITORY [facility] Imaging Services [address] [place], [place] [address] [place] [address] CTA Neck W/WO Contrast MR#: [id number] Acct: [id number] Name: STEPHANIE MOORE Rep #: [id number] : 1960 F 57 From: Jeremi Callahan MD PCP: Anuj Hanson MD Status: ADM IN Study: CTA Neck W/WO Contrast Date of Exam: 09/20/17 Exam# [id number] Ordering Dr: Montrell Haywood MD STUDY: CTA [...] CC: Anuj Hanson MD; Montrell Haywood MD Bad Work Gatherer: Signed BEDSIDE GLUCOSE Collected: 09/20/2017 Status: F Source: [place] 12:38 AM [facility] REPOSITORY TYPE CODE TESTS RESULT OUT OF REFERENCE UNITS RANGE LAB L501.080 70-110 mg/dL High BEDSIDE GLU 112 Result Comment: MANAGEMENT OF PATIENT CARE PER NURSING PROTOCOL Performed By: #### L501.080 #### [facility] [place] [address] CT-CTA NECK W/WO Observed: 09/20/2017 Status: F Source: [place] CONTRAST [place]ORT 12:00 AM [facility] Images were obtained outside of [facility] [id number] SR-CTA HEAD W/WO Observed: 09/20/2017 Status: F Source: [place] CONTRAST IMPORT 12:00 AM [facility] Images were obtained outside of [facility] [id number] ECHOCARDIOGRAM COMPLETE Observed: 09/19/2017 Status: F Source: [place] 6:02 PM [facility] REPOSITORY [facility] Cardiovascular Services [address] [place] [address] Echo Complete 09/19/17 1507 MR#: [id number] Acct: [id number] Name: STEPHANIE MOORE Rep #: [id number] : 1960 57 From: Jose Lopez MD Attending Dr: Chata Phipps Status: ADM IN Ordering Dr: Chata Phipps MD Date: 09/19/17 Location: [facility] Sex: F C Admitted: 09/19/17 Reason For [...] Date Dictated: 09/19/17 1507 Date Transcribed: 09/19/171801 Bad Work Gatherer: Signed BEDSIDE GLUCOSE Collected: 09/19/2017 Status: F Source: [place] 5:39 PM [facility] REPOSITORY TYPE CODE TESTS RESULT OUT OF REFERENCE UNITS RANGE LAB L501.080 70-110 mg/dL High BEDSIDE GLU 119 Result Comment: MANAGEMENT OF PATIENT CARE PER NURSING PROTOCOL Performed By: #### L501.080 #### [facility] Point of Care [address] [place] [address] HISTORY AND PHYSICAL Observed: 09/19/2017 Status: F Source: [place] EXAM 12:54 PM [facility] REPOSITORY [facility] Medical Records Department [address] [place] [address] History and Physical 09/19/17 1238 MR#: [id number] Acct: [id number] Name: STEPHANIE MOORE Rep #: [id number] : 1960 57 From: Chata Phipps MD PCP: Anuj Hanson MD Status: ADM IN Y Location: [facility] [id number] Problem List (1) Hyperglycemia Status: Acute (2) [...] the connectors and wires. 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 Electronically Signed: [...] Subcu Lovenox. This note was generated with [employer] software. It may contain incorrect words, spelling, and punctuation that were not noted in checking the note before signing. Code Visit Inpatient E AND M: 06531 Init Hosp L3 09/19/17 1254 <Electronically signed by Chata Phipps MD> Date Chata Phipps MD Cosigner Signature: Date (if applicable) CC: Anuj Hanson MD; Chata Phipps Signed EMERGENCY DEPARTMENT Observed: 09/19/2017 Status: F Source: [place] SUMMARY 12:08 PM [facility] REPOSITORY [facility] Medical Records Department [address] [place] [address] Emergency Department Summary 09/19/17 1205 MR#: [id number] Acct: [id number] Name: STEPHANIE MOORE Rep #: [id number] : 1960 57 From: Satish Jj MD [...] frontal stroke This note was generated with [employer] dictation software. It may contain incorrect words, [...] your Primary Care Provider. Call [facility] ([phone]) or report to the closest Emergency Room. Call 911 if necessary. 09/19/17 1208 <Electronically signed by Satish Jj MD> Date Satish Jj MD Cosigner Signature (If Indicated): Date CC: Anuj Hanson MD BRAIN/HEAD WITH Observed: 09/19/2017 Status: F Source: [place] CONTRAST 11:08 AM [facility] REPOSITORY [facility] Imaging Services [address] [place] [address] Brain/Head WITH Contrast MR#: [id number] Acct: [id number] Name: STEPHANIE MOORE Rep #: [id number] : 1960 F 57 From: Jaleel Boston MD PCP: Anuj Hanson MD Status: REG ER Study: Brain/Head WITH Contrast Date of Exam: 09/19/17 Exam# [id number] Ordering Dr: Satish Jj MD STUDY: CT [...] CC: Anuj Hanson MD; Satish Jj MD Bad Work Gatherer: Signed BEDSIDE GLUCOSE Collected: 09/19/2017 Status: F Source: [place] 10:53 AM [facility] REPOSITORY TYPE CODE TESTS RESULT OUT OF REFERENCE UNITS RANGE LAB L501.080 70-110 mg/dL High BEDSIDE GLU 173 Result Comment: MANAGEMENT OF PATIENT CARE PER NURSING PROTOCOL Performed By: #### L501.080 #### [facility] [place] [address] CBC W/DIFF, AUTOMATED Collected: 09/19/2017 Status: F Source: STPEHANIA 10:07 AM [facility] REPOSITORY TYPE CODE TESTS RESULT [...] Lymph 1.34 Performed By: #### L100.0100 #### [facility] [address] [place], [address] BASIC METABOLIC Collected: 09/19/2017 Status: F Source: STEPHANIA PROFILE (BMP) 10:07 AM [facility] REPOSITORY TYPE CODE TESTS RESULT [...] 7 Performed By: #### L500.2500, L501.4010 #### [facility] [address] [place], [address] TROPONIN-I Collected: 09/19/2017 Status: F Source: STEPHANIA 10:07 AM [facility] REPOSITORY TYPE CODE TESTS RESULT OUT OF RANGE REFERENCE UNITS LAB L501.4010 <0.045 ng/mL Normal < 0.015 TROPONIN-I Result Comment: TROPONIN-I EXPECTED VALUES <0.045 Negative 0.045 - 0.590 Consistent with Cardiac Damage > OR = 0.600 Critical Value Not every elevated troponin is indicative of [place]. These values should be used with clinical judgement in examining the patient's clinical picture for diagnosis. To establish a diagnosis of [place] versus myocardial injury, there must be a demonstrated rise and/or fall in the troponin values, in addition to ischemic symptoms, EKG changes, new regional wall motion abnormality, and/or angiographical evidence. PLEASE NOTE: REFERENCE RANGES EDITED 17 Performed By: #### L500.2500, L501.4010 #### [facility] [address] [place], [address] PROTHROMBIN TIME W/INR Collected: 09/19/2017 Status: F Source: STEPHANIA 10:07 AM [facility] REPOSITORY TYPE CODE TESTS RESULT OUT OF RANGE REFERENCE UNITS LAB L300.4150 11.7-14.9 SECONDS Normal PROTIME 13.0 LAB L300.4200 Normal INR 1.0 Performed By: #### L300.3900, L300.4310 #### [facility] [address] [place], [address] PARTIAL THROMBOPLAST Collected: 09/19/2017 Status: F Source: STEPHANIA TIME 10:07 AM [facility] REPOSITORY TYPE CODE TESTS RESULT OUT OF RANGE REFERENCE UNITS LAB L300.4310 24.1-36.2 Seconds Normal PTT 32.9 Performed By: #### L300.3900, L300.4310 #### [facility] [address] [place], [address] HEMOGLOBIN A1C Collected: 09/19/2017 Status: F Source: STEPHANIA 10:07 AM [facility] REPOSITORY TYPE CODE TESTS RESULT OUT OF RANGE REFERENCE UNITS LAB L501.9985 4.2-6.3 % Normal HGB A1C 5.7 Performed By: #### L501.9985 #### [facility] [address] [place], [address] BRAIN/HEAD WITHOUT Observed: 09/19/2017 Status: F Source: STEPHANIA CONTRAST 10:01 AM [facility] REPOSITORY [facility] Imaging Services [address] [facility] [place] [address] Brain/Head without Contrast MR#: [id number] Acct: [id number] Name: STEPHANIE MOORE Rep #: [id number] : 1960 F 57 From: Jaleel Boston MD PCP: Anuj Hanson MD Status: REG ER Study: Brain/Head without Contrast Date of Exam: 09/19/17 Exam# [id number] Ordering Dr: Satish Jj MD STUDY: CT [...] CC: Anuj Hanson MD; Satish Jj MD Bad Work Gatherer: Signed CHEST 1 VIEW Observed: 09/19/2017 Status: F Source: STEPHANIA 10:01 AM [facility] REPOSITORY [facility] Imaging Services [address] [place] [address] Chest 1 View MR#: [id number] Acct: [id number] Name: STEPHANIE MOORE Rep #: [id number] : 1960 F 57 From: Jaleel Boston MD PCP: Anuj Hasnon MD Status: REG ER Study: Chest 1 View Date of Exam: 09/19/17 Exam# [id number] Ordering Dr: Satish Jj MD STUDY: X-RAY [...] CC: Anuj Hanson MD; Satish Jj MD Bad Work Gatherer: Signed SR-BRAIN/HEAD WITHOUT Observed: 09/19/2017 Status: F Source: LACEY CONTRAST IMPORT 12:00 AM [facility] [place] REPOSITORY Images were obtained outside of [facility] [id number] CR-CHEST 1 VIEW Observed: 09/19/2017 Status: F Source: LACEY IMPORT 12:00 AM [facility] REPOSITORY Images were obtained outside of [facility] [id number] SR-BRAIN/HEAD WITH Observed: 09/19/2017 Status: F Source: LACEY CONTRAST IMPORT 12:00 AM [facility] REPOSITORY Images were obtained outside of [facility] [id number] US-CAROTID DUPLEX Observed: 09/19/2017 Status: F Source: [place] ULTRASOUND IMPORT 12:00 AM [facility] REPOSITORY Images were obtained outside of [facility] [id number] CR-CHEST 1 VIEW Observed: 09/19/2017 Status: F Source: L[place] IMPORT 12:00 AM [facility] REPOSITORY Images were obtained outside of [facility] [id number] PROGRESS Observed: 07/24/2017 Status: COMPLETED Source: LACEY 4:29 PM [facility] REPOSITORY HNO ID: [id number] Author: Anuj Hanson Service: (none) Author Type: [...] pain syndrome She sees pain management at [facility] for the same- it is Dr. Diallo who takes care of her. Has never called off a day in 12 years, works with [employer]. Works through the pain. Diet-can do better [...] for annual exam in one year. - [facility] BILAT 4. Colon cancer screening - ICD9: V76.51, ICD10: Z12.11 - FECAL OCCULT BLOOD TEST f/u 3 months to discuss about weight loss and diet and exercise etc MD JOLYNN TATEOV Observed: 07/24/2017 Status: COMPLETED Source: POMPEY 4:00 PM [facility] [place] Office Visit (INTMWS) STEPHANIE MOORE ([id number]) 1960 F Date Time Provider Department 07/24/17 [...] pain syndrome She sees pain management at [facility] for the same- it is Dr. Diallo who takes care of her. Has never called off a day in 12 years, works with [employer]. Works through the pain. Diet-can do better [...] [Z12.11] Order(s):BASIC METABOLIC PNL [SQBMP] Order #: [id number] FUTURE LIPID PANEL BASIC [SQLIPB] Order #: [id number] FUTURE [facility] [4954406] Order #: [id number] FUTURE FECAL OCCULT BLOOD TEST [SQIFOBT] Order #: [id number] FUTURE Prescriptions as of 07/24/2017 Sig: CYCLOBENZAPRINE [...] of lower limb [G90*INVALID FOR* NEURALGIA/NEURITIS NOS [JVJ7273] INVALID FOR* MONONEURITIS LEG NOS [G57.90] INVALID FOR* DYSTHYMIC DISORDER [F34.1] More... ACUTE CHOLECYSTITIS [K81.0] INVALID FOR* Obesity [E66.9] INVALID FOR* De Quervain's tenosynovitis, left [M65.4] INVALID FOR* CMC arthritis [M19.049] INVALID FOR* Thumb pain [M79.646] INVALID FOR* Encounter Status:Closed by ANUJ HANSON MD on 07/24/17 ALLERGIES ALLERGIES DATE TYPE / CODE NAME / CODE REACTION SEVERITY SOURCE Drug hydrocodone/F0060 Other Unknown [place] 8 Allergy/163874805( 49174(RXNORM) [facility] SNOMED CT) Hospital Repository Drug propoxyphene/F006 Nausea Unknown [place] 8 Allergy/423496195( 006923(RXNORM) [facility] SNOMED CT) Hospital Repository Drug pentazocine/F0060 Other Unknown [place] 8 [facility]/183142891( [facility] Drug acetaminophen/F00 Nausea Unknown [place] 8 Allergy/716580832( 1821247(RXNORM) [facility] SNOMED CT) Hospital Repository Miscellaneous PAPER TAPE Other Unknown [place] 8 Allergy/954364457( [facility] SNOMED CT) Hospital Repository Miscellaneous STERI-STRIPS Other Unknown [place] 8 Allergy/976441629( [facility] SNOMED CT) Hospital Repository Miscellaneous OTHER [place] 7 Allergy/754545279( [facility] SNOMED [facility]) [place] Rep[place] DRUG/760736354(SNO PENTAZOCINE-ACETA Mental Chg [place] [address]) [facility] Clinic Main [place] Repository Drug OPIOIDS - [place] 1 Class/222611274(SN MORPHINE Clinic Main OMED CT) ANALOGUES [place] Repository DRUG PENTAZOCINE [place] 1 INGREDI/435617006( Clinic Main SNOMED CT) [place] Repository DRUG PROPOXYPHENE [place] 1 INGREDI/652151660( [facility] SNOMED CT) [place] Repository ENCOUNTERS ENCOUNTERS ADMIT/DISCHARGE ACCOUNT NUMBER ADMITTING ENCOUNTER LOCATION SOURCE CLASS 03/14/2018/03/18/19 [id number] Ambulatory [address] Main [place] Repository 03/14/2018/03/19/19 [id number] Ambulatory [address] Main [place] Repository 03/06/2018/03/06/19 [id number] Ambulatory [address] Main [place] Repository 03/06/2018/03/06/19 [id number] Ambulatory [address] Main [place] Repository 03/06/2018/03/07/19 [id number] Ambulatory [address] Main [place] Repository 03/06/2018/03/06/19 [id number] Ambulatory [address] Main [place] Repository 03/06/2018/03/10/19 [id number] Ambulatory [address] Main [place] Repository 02/22/2018/02/23/20 [id number] Emergency [place] Stephania 18 [facility] ding:ED Repository 02/22/2018/02/24/20 [id number] Ambulatory [address] Main [place] Repository 02/20/2018/02/21/20 [id number] Ambulatory [address] Main [place] Repository 02/20/2018/02/22/20 [id number] Ambulatory [address] Main [place] Repository 02/14/2018/02/15/20 [id number] Ambulatory [address] Main [place] Repository 02/13/2018/02/26/19 [id number] Ambulatory [place] [facility] Main [place] Repository 02/12/2018/02/13/20 [id number] Ambulatory [place] 18 [facility] Main [place] Repository 02/12/2018/02/15/20 [id number] JAIME SOLIS Inpatient [place] 18 Encounter [facility] Main [place] Repository 02/11/2018/02/13/20 [id number] Emergency [address] ding:ED Repository 02/10/2018/02/20/20 [id number] Ambulatory [place] 18 [facility] [place] Repository 02/09/2018/02/10/20 [id number] Emergency [address] ding:ED Repository 02/03/2018/02/05/20 [id number] Ambulatory [address] Main [place] Repository 01/31/2018 [id number] Ambulatory [facility] Rep[place] ng:H.PMJ 01/29/2018/01/31/20 [id number] Ambulatory [place] 18 [facility] Main [place] Repository 01/27/2018/02/05/20 [id number] Ambulatory [address] Main [place] Repository 01/22/2018/02/05/20 [id number] Ambulatory [place] 18 [facility] [place] Repository 01/14/2018/01/15/20 [id number] Ambulatory [place] 18 [facility] [place] Repository 01/10/2018/01/11/20 [id number] JONATHON, Ambulatory [address] Main [place] Repository 01/06/2018/01/10/20 [id number] Ambulatory [place] 18 [facility] Main [place] Repository 01/02/2018 [id number] Ambulatory [facility] ding:OT Repository 01/01/2018/01/02/20 [id number] Ambulatory [place] 18 [facility] [place] Repository 01/01/2018/01/15/20 [id number] Ambulatory [address] Main [place] Repository 01/01/2018/01/15/20 [id number] Ambulatory [address] Main [place] Repository 12/30/2017 [id number] Ambulatory [facility] ding:LABSPEC Repository 12/30/2017/12/31/19 [id number] Ambulatory [address] Main [place] Repository 12/27/[id number] [facility] ng:H.PMJ 12/16/2017/12/18/19 [id number] Ambulatory [place] 18 [facility] Main [place] Repository 12/13/[id number] [facility] ng:H.OT 12/02/2017/12/04/19 [id number] Ambulatory [place] [facility] Main [place] Repository 11/28/2017/11/29/19 [id number] Ambulatory [place] 18 [facility] Main [place] Repository 11/28/2017/11/29/19 [id number] Ambulatory [place] 18 [facility] Main [place] Repository 11/27/2017/11/28/19 [id number] Ambulatory [place] 18 [facility] [place] Repository 11/25/2017/11/28/19 [id number] Ambulatory [place] 18 [facility] [place] Repository 11/20/2017/11/21/19 [id number] Ambulatory [place] 18 [facility] [place] Repository 11/15/[id number] [facility] ng:H.PMJ 11/11/2017/11/12/19 [id number] Ambulatory [place] 18 [facility] Main [place] Repository 11/01/2017/11/02/19 [id number] Ambulatory [place] 18 [facility] [place] Repository 10/31/2017/11/01/19 [id number] Ambulatory [place] 18 [facility] Main [place] Repository 10/31/2017/11/02/19 [id number] Ambulatory [place] 18 [facility] Main [place] Repository 10/25/2017/10/26/19 [id number] Ambulatory [place] 18 [facility] Main [place] Repository 10/18/2017/10/22/19 [id number] Ambulatory [place] 18 [facility] Main [place] Repository 10/15/2017/10/17/19 [id number] Ambulatory [place] 18 [facility] Main [place] Repository 10/11/2017/10/16/19 [id number] Ambulatory [place] 18 [facility] Main [place] Repository 10/10/2017/10/11/19 [id number] Ambulatory [place] 18 [facility] Main [place] Repository 10/08/2017/10/10/19 [id number] Ambulatory [place] 18 [facility] [place] Repository 10/04/2017 [id number] [facility] Repository ng:H.PMJ 10/04/2017/10/08/19 [id number] Ambulatory [address] Repository 10/04/2017/10/09/19 [id number] Ambulatory [address] Repository 09/30/2017 [id number] Inpatient [address] [place] [address] Encounter 3WRoom: System [id number]: Repository [id number] 09/19/2017 [id number] [place], Ambulatory BMSBuilding: [place] Ghasem BMS.[facility] Repository 09/19/2017 [id number] [place], Ambulatory BMSBuilding: [place] Ghasem BMS.[facility] Repository 09/19/2017 [id number] [place], Ambulatory BMSBuilding: [place] Ghasem [facility]MS.[facility] Repository 09/19/2017/10/01/19 [id number] [place], Inpatient [place] 18 Ghasem Encounter [facility] ding:PCURoom Repository : YZI916Fke: 1 09/19/2017 [id number] [place], Ambulatory BMSBuilding: [place] Ghasem BMS.[facility] Repository 09/19/2017 [id number] [place], Ambulatory BMSBuilding: [place] Ghasem [facility]MS.[facility] Repository 09/19/2017 [id number] [place], Ambulatory BMSBuilding: [place] Ghasem [facility]MS.[facility] Repository 09/19/2017/10/01/19 [id number] Ambulatory BMSBuilding: [place] 18 [facility] Repository 09/19/2017 [id number] [place], Ambulatory BMSBuilding: [place] Ghasem BMS.[facility] Repository 09/19/2017 [id number] [place], Ambulatory BMSBuilding: [place] Ghasem [facility]MS[facility] Repository 09/19/2017 [id number] [place], Ambulatory BMSBuilding: [place] Ghasem BMS.[facility] Repository 09/19/2017 [id number] [place], Ambulatory BMSBuilding: [place] Ghasem BMS.[facility] Repository 09/19/2017 [id number] [facility], Ambulatory BMSBuilding: [place] Ghasem [facility]MS[facility] Repository 09/19/2017 [id number] [facility], Ambulatory BMSBuilding: [place] Ghasem BMS.[facility] Repository 07/24/2017/07/26/19 [id number] Ambulatory [address] Repository 06/21/2017 [id number] Ambulatory [facility] Repository ng:SLOAN PAYERS PAYERS ENCOUNTER GUARANTOR PAYER SUBSCRIBER SOURCE 02/22/2018 STEPAHNIE L [id number] Primary STEPHANIE L [place] Insurance:ANTHEMPoli SCHEIBEDOB: [place], [place] Number: [id number] Hospital 535[address]Ryq: (330 [id number] Repository [phone] () tive Date:8095-20-56UN [address] [place] [address] 12497WR: 02/22/2018 Secondary NOT GIVENUNK [place] Insurance:SELF PAY [facility] Number: Effective Repository Date:2018-02-22 02/11/2018 STEPHANIE L [id number] Primary STEPHANIE L [place] Insurance:ANTHEMPoli SCHEIBEDOB: [place] Number: [id number] Hospital 27983Npj: (330 [id number] Repository [phone] () tive Date:5288-88-22OK [id number] [place] [address] 69070UA: 02/11/2018 Secondary NOT GIVENUNK [place] Insurance:SELF PAY [facility] Number: Effective Repository Date:2018-02-11 02/09/2018 STEPHANIE L [id number] Primary STEPHANIE L [place] Insurance:ANTHEMPoli SCHEIBEDOB: [place] Number: [id number] Hospital 68340Jnx: (330 [id number] Repository [phone] () tive Date:7332-08-77GB [address] [place] [address] 95478YF: 02/09/2018 Secondary NOT GIVENUNK [place] Insurance:SELF PAY [facility] Number: Effective Repository Date:2018-02-09 01/31/2018 STEPHANIE [id number] Primary [facility] Insurance:[facility] OTHERPolicy Number: Repository 81177Ndf: 330 [id number] [phone] (HP) tive Date: [id number] [place] [address] 50225GM: 01/02/2018 STEPHANIE L [id number] Primary STEPHANIE L [facility] Insurance:ANTHEMPoli SCHEIBEDOB: [place] Number: [id number] Hospital 53010Mts: 330 [id number] Repository [phone] () tive Date:8232-49-91TP[address] [address]RF: 01/02/2018 Secondary NOT GIVENUNK [place] Insurance:SELF PAY [facility] Number: Effective Repository Date:2017-10-07 12/30/2017 STEPHANIE L [id number] Primary [facility] Insurance:ANTHEMPoli SCHEIBEDOB: [place] Number: [id number] Hospital 59835Fjt: 330 [id number] Repository [phone] () tive Date:5041-23-03JH[address] [address]TK: 12/30/2017 Secondary NOT GIVENUNK [place] Insurance:SELF PAY [facility] Number: Effective Repository Date:2017-12-30 12/27/2017 STEPHANIE [id number] Primary [facility] Insurance:[place], [place] OTHERPolicy Number: Repository [id number]: 330 [id number] [phone] (HP) tive Date:[address]XWLPCJM, [place] [address]AW: 12/13/2017 STEPHANIE [id number] [facility] Insurance:[place] OTHERPolicy Number: Repository [id number]: (330) [id number] [phone] (HP) tive Date:[address] [place], [place] [address]OH: 11/15/2017 STEPHANIE [id number] [facility] Insurance:[place] OTHERPolicy Number: Repository [id number]: (330) [id number] (HP) tive Date: [address] [place] [address] 12649WT: 10/04/2017 STEPHANIE [id number] [facility] Insurance:[place] OTHERPolicy Number: Repository [id number]: (330) [id number] [phone] (HP) tive Date:[facility] [id number] [place] [address] 08944ZB: 09/30/2017 Stephanie ScheibeDOB: Primary Stephanie [facility] Insurance:[place] ScheibeDOB: [facility] Blue Cross Blue [id number] Repository [place], [place] ShieldPolicy Number: [id number]: (330) Effective Date: 46 (HP) 09/19/2017 STEPHANIE L [id number] [facility] Insurance:ANTHEMPoli SCHEIBEDOB: [place] Number: [id number] Hospital 73528Pky: (330) [id number] Repository [phone] (HP) tive Date:7954-01-55TV [address] [place] [address] 50739OA: 09/19/2017 Secondary NOT GIVENUNK [place] Insurance:SELF PAY [facility] Number: Effective Repository Date:2017-09-19 09/19/2017 STEPHANIE L [id number] Primary STEPHANIE L [place] Insurance:ANTHEMPoli SCHEIBEDOB: [facility] [place] Number: [id number] Hospital 864[address]Enq: 330 [id number] Repository [phone] (HP) tive Date:4008-35-39BI [address] [place] [address] 16708RP: 09/19/2017 Secondary NOT GIVENUNK [place] Insurance:SELF PAY [facility] Number: Effective Repository Date:2017-09-19 09/19/2017 STEPHANIE L [id number] Primary STEPHANIE L [place] Insurance:ANTHEMPoli SCHEIBEDOB: [place] Number: [id number] Hospital 84694Jjk: 330 [id number] Repository [phone] (HP) tive Date:9501-76-15UJ [address] [place] [address] 38492GN: 09/19/2017 Secondary NOT GIVENUNK [place] Insurance:SELF PAY [facility] Number: Effective Repository Date:2017-09-19 09/19/2017 STEPHANIE L [id number] Primary STEPHANIE L [place] Insurance:ANTHEMPoli SCHEIBEDOB: [place] Number: [id number] Hospital 43548Bzq: 330 [id number] Repository [phone] (HP) tive Date:3338-50-12EK [address] [place] [address] 61412LX: 09/19/2017 Secondary NOT GIVENUNK [place] Insurance:SELF PAY [facility] Number: Effective Repository Date:2017-09-19 09/19/2017 STEPHANIE L [id number] Primary STEPHANIE L [place] Insurance:ANTHEMPoli SCHEIBEDOB: [facility] [place] Number: [id number] Hospital 57247Nvp: (330) [id number] Repository [phone] (HP) tive Date:7897-22-83RV [address] [place] [address] 04175WG: 09/19/2017 Secondary NOT GIVENUNK [place] Insurance:SELF PAY [facility] Number: Effective Repository Date:2017-09-19 09/19/2017 STEPHANIE L [id number] Primary STEPHANIE L [place] Insurance:ANTHEMPoli SCHEIBEDOB: [facility] [place] Number: [id number] Hospital 35800Jsq: (330) [id number] Repository [phone] (HP) tive Date:3156-36-03RY [address] [place] [address] 14050ZG: 09/19/2017 Secondary NOT GIVENUNK [place] Insurance:SELF PAY [facility] Number: Effective Repository Date:2017-09-19 09/19/2017 STEPHANIE L [id number] Primary STE[place]ANIE L [place] Insurance:ANTHEMPoli SCHEIBEDOB: [facility] [place] Number: [id number] Hospital 29080Msx: (330) [id number] Repository [phone] (HP) tive Date:8555-38-83OU [address] [place] [address] 77531VE: 09/19/2017 Secondary NOT GIVENUNK [place] Insurance:SELF PAY [facility] Number: Effective Repository Date:2017-09-19 09/19/2017 STEPHANIE L [id number] Primary STEPHANIE L [place] Insurance:ANTHEMPoli SCHEIBEDOB: [facility] [place] Number: [id number] Hospital 92997Wry: (330) [id number] Repository [phone] (HP) tive Date:6323-79-42FP [address] [place] [address] 25678NC: 09/19/2017 Secondary NOT GIVENUNK [place] Insurance:SELF PAY [facility] Number: Effective Repository Date:2017-09-19 09/19/2017 STEPHANIE L [id number] Primary STEPHANIE L [place] Insurance:ANTHEMPoli SCHEIBEDOB: [facility] [place] Number: [id number] Hospital 22686Muc: 330 [id number] Repository [phone] (HP) tive Date:4156-16-46QU [address] [place] [address] 28839QI: 09/19/2017 Secondary NOT GIVENUNK [place] Insurance:SELF PAY [facility] Number: Effective Repository Date:2017-09-19 09/19/2017 STEPHANIE L [id number] Primary STEPHANIE L [place] Insurance:ANTHEMPoli SCHEIBEDOB: [facility] RdWhenry [facility] [place] Number: [id number] Hospital 89951Tot: (330) [id number] Repository [phone] (HP) tive Date:2378-88-72SL [address] [place] [address] 90401FH: 09/19/2017 Secondary NOT GIVENUNK [place] Insurance:SELF PAY [facility] Number: Effective Repository Date:2017-09-19 09/19/2017 STEPHANIE L [id number] Primary STEPHANIE L [place] Insurance:ANTHEMPoli SCHEIBEDOB: [facility] [place] Number: [id number] Hospital 09782Wcv: (330 [id number] Repository [phone] (HP) tive Date:3326-20-68IF [address] [place] [address] 37537SV: 09/19/2017 Secondary NOT GIVENUNK [place] Insurance:SELF PAY [facility] Number: Effective Repository Date:2017-09-19 09/19/2017 STEPHANIE L [id number] Primary STEPHANIE L Stephania [place] Insurance:ANTHEMPoli SCHEIBEDOB: [facility] [place] Number: [id number] [id number]: (330) [id number] Repository [phone] (HP) tive Date:[id number] [address] [place] [address] [place] [address]CY: 09/19/2017 Secondary NOT GIVENUNK Stephania Insurance:SELF PAY [facility] Number: Effective Repository Date:2017-09-19 09/19/2017 STEPHANIE L [id number] Primary STEPHANIE L Stephania [place] Insurance:ANTHEMPoli SCHEIBEDOB: [place], [place] Number: [id number] [id number]: [phone]) [id number] Repository [phone] (HP) tive Date:[id number] [address] [place] [address] [place] [address]OW: 09/19/2017 Secondary NOT GIVENUNK Stephania Insurance:SELF PAY [facility]: Effective Repository Date:2017-09-19 09/19/2017 STEPHANIE L [id number] Primary STEPHANIE L Stephania [place] Insurance:ANTHEMPoli SCHEIBEDOB: [place] Number: [id number] [id number]: (330) [id number] Repository [phone] (HP) tive Date:[id number] [place] [address] [place] [address]MC: 09/19/2017 Secondary NOT GIVENUNK Stephania Insurance:SELF PAY [facility] Number: Effective Repository Date:2017-09-19 06/21/2017 STEPHANIE [id number] Primary [facility] [place] Insurance:[facility] [place] Number: Repository [id number]: [phone]) [id number] [id number] (HP) tive Date: [address] [place] [address] [place] [address]BL:
== END 2018-02-12 04:49 | disposition short-term general hospital (02) ==
LOC: ED 19:58
PROVIDERS: Emergency Provider Emergency Medicine; Family Provider Internal Medicine; PCP Internal Medicine
DX: G45.9 Transient cerebral ischemic attack, unspecified (principal); I65.21 Occlusion and stenosis of right carotid artery; H40.212 Acute angle-closure glaucoma, left eye; D68.51 Activated protein C resistance; H11.32 Conjunctival hemorrhage, left eye; R29.810 Facial weakness; H53.8 Other visual disturbances; R51 Headache; R00.1 Bradycardia, unspecified; G90.50 Complex regional pain syndrome I, unspecified; Z79.01 Long term (current) use of anticoagulants; Z79.82 Long term (current) use of aspirin; Z79.52 Long term (current) use of systemic steroids; Z79.899 Other long term (current) drug therapy; Z86.73 Personal history of transient ischemic attack (TIA), and cerebral infarction without residual deficits
CPT/HCPCS: 70450; 70496; 70498; 80048; 84484; 85025; 85610; 93005; 96374; 96375; 96376; 99285; J7030; Q9967; A4216; J2405

== ENCOUNTER 2018-02-22 11:18 | Emergency (ER) | payer BC, SELFPAY ==
[2018-02-22 11:20] VITALS: BP 155/109; PULSE 67; RESP 17; TEMP 36.8; O2SAT 100; BMI 36.6
--- NOTE | 2018-02-22 11:36 | EKG12_ITS ---
Test Reason : BACK PAIN Blood Pressure : / mmHG Vent. Rate : 062 BPM Atrial Rate : 062 BPM P-R Int : 110 ms QRS Dur : 094 ms QT Int : 396 ms P-R-T Axes : 006 017 038 degrees QTc Int : 401 ms Sinus rhythm with short WA Otherwise normal ECG Confirmed by ANTONIO BRENNAN, VICTOR HUGO ([id number]), business editor LEANDRA WALTERS ([id number]) on 02/24/2018 12:36:17 PM Referred By: CHAD Confirmed By:VICTOR HUGO ALVAREZ MD
--- NOTE | 2018-02-22 11:37 | CT_ITS ---
STUDY: CTA CHEST REASON FOR EXAM: Female, 57 years old. Shortness of breath, upper back pain RADIATION DOSAGE (If Supplied By Facility): CTDIvol = ( 21.71 ) mGy, DLP = ( 652.64 ) mGycm TECHNIQUE: The examination was performed with the intravenous administration of 100ml ml of Isovue 370 contrast material. Post-processing of the angiographic images was performed, with multiplanar reformation and 3D reconstruction. Individualized dose optimization techniques were used for this CT. COMPARISON: None. FINDINGS: There is limited enhancement of the main pulmonary artery and right and left pulmonary arteries. There is limited enhancement of the bilateral peripheral pulmonary arteries. There is no demonstrated pulmonary embolism however, a subtle filling defect could be present and overlooked particularly in the distal vessels due to the suboptimal contrast bolus.. Normal thoracic aorta and visualized great vessels. There is no demonstrated aortic dissection. Normal heart and pericardium. Normal mediastinum. Normal hilar regions. Normal visualized trachea and bronchi. The lungs are well expanded. Emphysematous blebs noted in both upper lobes, there is no superimposed acute pulmonary process, or suspicious noncalcified mass or nodule. There is lingular atelectasis. Normal pleura. Normal chest wall structures. There are degenerative changes of thoracic spine. Normal visualized upper abdomen. CT/CTA Chest W/WO Contrast IMPRESSION: No demonstrated PE. However, the contrast bolus within the pulmonary arteries is not optimal, and a subtle filling defect could be present and overlooked due to the suboptimal bolus. No thoracic aortic aneurysm or dissection Emphysematous blebs in both upper lobes without a superimposed infiltrate or effusion, lingular atelectasis noted. Degenerative bony changes Electronically Signed: Chad Boston MD at 12:25 EST , Service support ,
[2018-02-22] MEDS: Morphine 4 MG/ML Syringe IV (11:45)
[2018-02-22 11:55] LABS: Absolute Lymphocyte Count 1.36 X10^3/ul (0.83-4.51); Absolute Neutrophil Count 13.8 X10^3/uL (2.0-7.7); Basophil# 0.02 X10^3/uL; Basophil% 0.1 % (0-1); Eosinophil# 0.01 X10^3/uL; Eosinophils% 0.1 % (0-5); Hematocrit 39.4 % (37-47); Hemoglobin 12.6 g/dl (12.0-15.0); Lymphocyte # 1.36 X10^3/ul (4.0); Lymphocyte % 8.3 % (19-41); Mean Corpuscular Hgb 29.1 pg (27.0-32.0); Mean Platelet Vol. 9.6 fl (6.2-12.0); Monocyte# 0.77 X10^3/uL; Monocyte% 4.7 % (0-10); Neutrophil # 13.77 X10^3/uL (2.7-7.7); Neutrophil % 84.4 % (47-70); Platelet Count 285 K/mm3 (150-450); RBC Distribution Width CV 14.6 % (11.6-14.6); RBC Distribution Width SD 48.7 fl (35.1-43.9); Red Blood Count 4.33 M/mm3 (4.2-5.4); White Blood Count 16.3 K/mm3 (4.4-11.0)
[2018-02-22 11:57] LABS: Differential Indicated SCAN CRITERIA MET; POSITIVE COUNT YES; POSITIVE DIFFERENTIAL NO; POSITIVE MORPHOLOGY YES
[2018-02-22 12:01] LABS: Prothrombin Time (Protime)PT. 37.5 SECONDS (11.7-14.9)
[2018-02-22 12:03] LABS: International Normalized Ratio 3.8
--- NOTE | 2018-02-22 12:03 | ED.VISSUMM ---
- ER Visit Summary Date of Service: 02/22/18 Chief Complaint: Right-sided back pain History of Present Illness: The patient is a 57 F who is right-sided back pain. She has had this for a week. It is on the right thoracic side. Is worse with movement. She tried Flexeril and Percocet but it is not helping. She denies any injuries. She also complains of shortness of breath. She has a history of a DVT and factor V Leiden. She is on Coumadin. Her last INR was 2.9. She also has a history of RSD in the leg. She was seen at an urgent care and was directed here for further evaluation. Physical Examination: Vital signs reviewed. HEENT exam unremarkable. Heart is regular rate and rhythm without murmurs. Lungs are clear to auscultation. Abdomen is soft and nontender. Back exam reveals right-sided paraspinal tenderness to palpation in the thoracic area. Extremities reveal no edema. Skin exam normal. Neurologic exam normal. Test Results: EKG is sinus rhythm with rate of 62. White blood cell count 16.3. Chloride 108, glucose 141. INR of 3.8. Troponin 0 0.086. CTA of the chest reveals no PE. There is some chronic blebs. Emergency Department Course and Treatment: The patient was given morphine for her pain. Her troponin is elevated but it is slightly lower than when it was over a week ago. I feel is likely trending down. She has no anterior chest pain. Her back pain is reproducible and I feel it is musculoskeletal. It is worse with movement. She has no PE or pneumonia. I feel that she would benefit from a topical lidocaine patch. She has Percocet and Flexeril at home. She will follow-up with her PCP. Treatment Plan: [] Disposition: Discharge Impression: Thoracic back pain This note was generated with [employer] dictation software. It may contain incorrect words, spelling, and punctuation that were not noted in review of the chart prior to signing ED Disposition - Plan for ED Patient: Chief Complaint: Shortness of Breath Referrals: Sammi Rowley MD [Primary Care Provider] -
--- NOTE | 2018-02-22 12:04 | ED.RN ---
LABS RESULTS GIVEN TO . PROTIME 37.5 SEC, INR 3.8.
[2018-02-22 12:08] LABS: Anion Gap 11 (5-15); BUN 18 mg/dL (7-18); BUN/Creat Ratio 19.7 RATIO (10-20); Calcium,Total 8.3 mg/dL (8.5-10.1); Chloride 108 mmol/L (98-107); Creatinine, Serum 0.92 mg/dL (0.55-1.02); EST Glomerular Filtration Rate 68 mL/min (>60); Est Glom Filt Rate - Afr Amer 82 mL/min (>60); Estimated Creatinine Clearance 62.17 ml/min; Glucose 141 mg/dL (74-106); Potassium 4.1 mmol/L (3.5-5.1); Sodium Level 143 mmol/L (136-145)
[2018-02-22 12:09] LABS: Differential Comment SCANNED
--- NOTE | 2018-02-22 12:42 | PCA ---
NO OLD EKG
--- NOTE | 2018-02-22 12:42 | ED.DEP ---
ED Disposition - Plan for ED Patient: Disposition: Home or Assisted Living Chief Complaint: Shortness of Breath Instructions: ED Sprain Thoracic Spine Prescriptions: Lidocaine [Lidoderm Patch] 1 patch TOPICAL DAILY #14 patch Referrals: Sammi Rowley MD [Primary Care Provider] -
[2018-02-22 13:11] VITALS: BP 108/61
[2018-02-24 10:55] LABS: Pathologist Review Reviewed
== END 2018-02-22 13:12 | disposition home or self-care (01) ==
PROVIDERS: Emergency Provider Emergency Medicine; Family Provider Internal Medicine; PCP Internal Medicine
DX: M54.6 Pain in thoracic spine (principal); D68.51 Activated protein C resistance; Z86.718 Personal history of other venous thrombosis and embolism; Z79.01 Long term (current) use of anticoagulants; Z79.82 Long term (current) use of aspirin; Z79.899 Other long term (current) drug therapy; Z86.73 Personal history of transient ischemic attack (TIA), and cerebral infarction without residual deficits
CPT/HCPCS: 71275; 80048; 84484; 85025; 85610; 93005; 96374; 99285; Q9967; A4216

== ENCOUNTER 2018-04-02 08:50 | Observation (INO) | payer BC, SELFPAY ==
[2018-04-02] VITALS (9 sets, daily range): BP systolic 143–161; BP diastolic 84–116; PULSE 57–83; RESP 14–18; TEMP 35.9–36.8; O2SAT 95–98; BMI 37.4; BMI 39.6; BMI 39.7
--- NOTE | 2018-04-02 09:10 | CT_ITS ---
STUDY: CT BRAIN WITHOUT CONTRAST REASON FOR EXAM: Female, 58 years old. Headaches. RADIATION DOSAGE (If Supplied By Facility): CTDIvol = ( 44.99 ) mGy, DLP = ( 812.98 ) mGycm TECHNIQUE: Transaxial CT imaging of the brain was performed without administration of intravenous contrast material. Individualized dose optimization techniques were used for this CT. COMPARISON: Comparison is made with prior study dated February 11, 2018. FINDINGS: Normal soft tissue structures. Normal calvarium. Normal size ventricles and extra-axial spaces for the patient's age. Stable area of encephalomalacia in the right frontal parietal lobe with prior CVA. No acute abnormality is seen. Normal basal ganglia and thalami. Normal brainstem. Normal cerebellum. There is no intracranial hemorrhage. There are no findings of an acute ischemic infarction. Normal visualized paranasal sinuses. CT/Brain/Head without Contrast IMPRESSION: Stable encephalomalacia in the right frontoparietal lobe. Electronically Signed: Venkat Reagan MD at 10:11 EST , Service support ,
--- NOTE | 2018-04-02 09:10 | EKG12_ITS ---
Test Reason : HYPERTENSION Blood Pressure : / mmHG Vent. Rate : 077 BPM Atrial Rate : 077 BPM P-R Int : 116 ms QRS Dur : 088 ms QT Int : 372 ms P-R-T Axes : 017 010 046 degrees QTc Int : 420 ms Normal sinus rhythm Nonspecific ST abnormality Abnormal ECG Confirmed by ANDRE BRENNAN, LINDA ([id number]), fashion editor LEANDRA WALTERS ([id number]) on 04/07/2018 9:47:01 AM Referred By: Juancarlos Cummins Confirmed By:LINDA POWELL MD
[2018-04-02] MEDS: Metoclopramide 10 MG/2 ML Vial IV (09:32)
[2018-04-02] MEDS: 0.9% Normal Saline 1,000 ML 1000 ML IV (09:32)
[2018-04-02] MEDS: Morphine 4 MG/ML Syringe IV ×2 (09:32→13:10)
[2018-04-02 09:45] LABS: Hematocrit 39.8 % (37-47); Hemoglobin 12.8 g/dl (12.0-15.0); Mean Corp Hgb Conc 32.2 g/gl (32-36); Mean Corpuscular Hgb 29.2 pg (27.0-32.0); Mean Corpuscular Volume 90.7 fL (81-99); Platelet Count 194 K/mm3 (150-450); RBC Distribution Width CV 15.2 % (11.6-14.6); RBC Distribution Width SD 49.8 fl (35.1-43.9); Red Blood Count 4.39 M/mm3 (4.2-5.4); White Blood Count 9.2 K/mm3 (4.4-11.0)
[2018-04-02 09:48] LABS: Differential Indicated MANUAL DIFF; POSITIVE COUNT YES; POSITIVE DIFFERENTIAL NO; POSITIVE MORPHOLOGY YES
[2018-04-02 09:50] LABS: International Normalized Ratio 1.5; Prothrombin Time (Protime)PT. 18.3 SECONDS (11.7-14.9)
[2018-04-02 09:59] LABS: Anion Gap 11 (5-15); BUN 17 mg/dL (7-18); BUN/Creat Ratio 20.6 RATIO (10-20); Calcium,Total 8.3 mg/dL (8.5-10.1); Chloride 107 mmol/L (98-107); Creatinine, Serum 0.83 mg/dL (0.55-1.02); EST Glomerular Filtration Rate 76 mL/min (>60); Est Glom Filt Rate - Afr Amer 92 mL/min (>60); Glucose 169 mg/dL (74-106); Potassium 3.7 mmol/L (3.5-5.1); Sodium Level 142 mmol/L (136-145)
[2018-04-02 10:06] LABS: Lymphocyte 14 % (19-41); Metamyelocyte 2 % (0-1); Neutrophil-Band 3 % (0-5); Neutrophil-Segmented 81 % (47-70); Total Cells Counted 100 (MANUAL DIFF)
[2018-04-02 10:07] LABS: Absolute Neutrophil Count 7.7 X10^3/uL (2.0-7.7); Platelet Estimate ADEQUATE (ADEQ); Red Cell Morphology NORM C+C NORMAL (NORM C&C)
--- NOTE | 2018-04-02 12:51 | ED.VISSUMM ---
- ER Visit Summary Date of Service: 04/02/18 Chief Complaint: [High blood pressure] History of Present Illness: The patient is a 58 F [presents to the emergency department complaint of hypertension this morning while at work. Patient states that this was her first day back after being off for many months related to a stroke that she had had. 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 Patient then suddenly and slowly developed a headache and her blood pressure was checked and was noted to be 188/98. Her fingerstick blood sugar at the time was 170. Patient was brought to the ER for evaluation. Patient continues to complain of a headache and nausea however no photophobia. She denies any chest pain or shortness of breath. Patient is currently on Coumadin due to related stenosis of her left carotid artery.] Physical Examination: [HEENT-PERRLA, EOMI. Cranial nerves II through XII grossly intact. TMs clear. Mucous membranes moist. No adenopathy. Cardiovascular-regular rate and rhythm without murmur or ectopy Lungs-clear to auscultation, chest wall stable without crepitus or subcu emphysema Abdomen-normoactive bowel sounds, soft, nontender, no rebound or rigidity, no peritoneal signs. Neuro nxri-eyuhmb-gkoz and heel mccann testing within normal limits, negative Romberg, negative pronator drift, fundi benign Extremities-intact ?4, normal range of motion, normal pulses, atraumatic] Test Results: [EKG obtained arrival shows sinus rhythm with a ventricular rate of 77 bpm with no acute I segment changes. CBC with differential showed a white count of 9.2, hemoglobin 12.8, hematocrit 40, placed 194. Chemistries unremarkable. INR was 1.5. Troponin was 0.064. CT scan of the brain showed stable encephalomalacia of the right frontal parietal lobe otherwise nothing acute.] Emergency Department Course and Treatment: [It does appear that patient's prior troponins were slightly elevated however patient states she is never had a heart catheterization or stress test. Patient states that she has a sister who had a heart attack in her 60s.] Treatment Plan: [Patient will be admitted for further evaluation of her elevated troponin as it unclear what caused her symptomatology today with the elevated blood pressure as well as nausea and near syncopal feeling.] Disposition: [Admit] Impression: [Hypertension Elevated troponin Near syncope] This note was generated with [employer] dictation software. It may contain incorrect words, spelling, and punctuation that were not noted in review of the chart prior to signing ED Disposition - Plan for ED Patient: Referrals: Sammi Rowley MD [Primary Care Provider] -
--- NOTE | 2018-04-02 12:54 | ED.DCSUM_ITS ---
- ER Visit Summary Date of Service: 04/02/18 Chief Complaint: [High blood pressure] History of Present Illness: The patient is a 58 F [presents to the emergency department complaint of hypertension this morning while at work. Patient states that this was her first day back after being off for many months related to a stroke that she had had. 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 Patient then suddenly and slowly developed a headache and her blood pressure was checked and was noted to be 188/98. Her fingerstick blood sugar at the time was 170. Patient was brought to the ER for evaluation. Patient continues to complain of a headache and nausea however no photophobia. She denies any chest pain or shortness of breath. Patient is currently on Coumadin due to related stenosis of her left carotid artery.] Physical Examination: [HEENT-PERRLA, EOMI. Cranial nerves II through XII grossly intact. TMs clear. Mucous membranes moist. No adenopathy. Cardiovascular-regular rate and rhythm without murmur or ectopy Lungs-clear to auscultation, chest wall stable without crepitus or subcu emphysema Abdomen-normoactive bowel sounds, soft, nontender, no rebound or rigidity, no peritoneal signs. Neuro uqvv-huvdkt-sufl and heel mccann testing within normal limits, negative Romberg, negative pronator drift, fundi benign Extremities-intact ?4, normal range of motion, normal pulses, atraumatic] Test Results: [EKG obtained arrival shows sinus rhythm with a ventricular rate of 77 bpm with no acute I segment changes. CBC with differential showed a white count of 9.2, hemoglobin 12.8, hematocrit 40, placed 194. Chemistries unremarkable. INR was 1.5. Troponin was 0.064. CT scan of the brain showed stable encephalomalacia of the right frontal parietal lobe otherwise nothing acute.] Emergency Department Course and Treatment: [It does appear that patient's prior troponins were slightly elevated however patient states she is never had a heart catheterization or stress test. Patient states that she has a sister who had a heart attack in her 60s.] Treatment Plan: [Patient will be admitted for further evaluation of her elevated troponin as it unclear what caused her symptomatology today with the elevated blood pressure as well as nausea and near syncopal feeling.] Disposition: [Admit] Impression: [Hypertension Elevated troponin Near syncope] This note was generated with [employer] dictation software. It may contain incorrect words, spelling, and punctuation that were not noted in review of the chart prior to signing ED Disposition - Plan for ED Patient: Referrals: Sammi Rowley MD [Primary Care Provider] -
--- NOTE | 2018-04-02 14:38 | EKG12_ITS ---
Test Reason : CP ADMISSION Blood Pressure : / mmHG Vent. Rate : 057 BPM Atrial Rate : 057 BPM P-R Int : 120 ms QRS Dur : 084 ms QT Int : 408 ms P-R-T Axes : 029 022 055 degrees QTc Int : 397 ms Sinus bradycardia Otherwise normal ECG When compared with ECG of 22-FEB-2018 11:35, No significant change was found Confirmed by ANDRE BRENNAN, LINDA ([id number]), editor publications LEANDRA WALTERS ([id number]) on 04/10/2018 11:53:49 AM Referred By: Juancarlos Cummins Confirmed By:LINDA POWELL MD
[2018-04-02] MEDS: oxyCODONE 5 MG Tablet PO ×2 (17:26→21:28)
--- NOTE | 2018-04-02 17:40 | HP.PCM_ITS ---
Problem List (1) SOB (shortness of breath) Status: Acute History of Present Illness Date of Admission: 04/02/18 Chief Complaint: Shortness of breath The patient is a 58 year old F with PMH as below who presents from work after becoming diaphoretic and having shortness of breath. She states that the shortness of breath has been getting worse over the last couple weeks, but she did finally return to work for the first time in 6 months after her stroke in August and had an episode of high blood pressure. The nurse at work took her blood pressure and said that it was 180 systolic. She was transferred to the ER where she continued to complain about shortness of breath though she did not require oxygen and also was found to have an elevated troponin to 0.06-4. Of note she was in the ER back in January and was having strokelike symptoms, with a troponin of 0.091 and was transferred to the [facility]. She states that she did not have any cardiac workup in that facility at that time. On presentation to the ER her blood pressures were stable in the 140s-150s, and the rest of her vital signs were normal. She currently is not diaphoretic and feels better than when she was at work. Denies any focal deficits and does not have any similar symptoms to her previous stroke or TIA. Past Medical History Past Medical History (Chronic Problems): Chronic Problems Chronic back pain (Chronic) Anxiety (Chronic) Reflex sympathetic dystrophy (Chronic) Allergies acetaminophen [From Darvocet-N] Adverse Reaction (Verified 04/02/18 08:51) Nausea hydrocodone [From Vicodin] Adverse Reaction (Verified 04/02/18 08:51) Other pentazocine [From Talwin] Adverse Reaction (Verified 04/02/18 08:51) Other propoxyphene [From Darvocet-N] Adverse Reaction (Verified 04/02/18 08:51) Nausea PAPER TAPE Adverse Reaction (Uncoded 04/02/18 08:51) Other BLISTERS STERI-STRIPS Adverse Reaction (Uncoded 04/02/18 08:51) Other BLISTERS Home Medications: Ambulatory Orders Medication Instructions Recorded ALPRAZolam [Xanax] 1 mg PO QHS 09/19/17 Methadone HCl [(None)] 10 mg PO Q8H 09/19/17 Oxycodone HCl/Acetaminophen 1 tablet PO TID PRN PRN 09/19/17 [Percocet 5/325] Atorvastatin Calcium [Lipitor] 40 mg PO QHS 02/11/18 Prednisone See Taper PO DAILY 02/11/18 Smz/Tmp Ds [Bactrim Ds] 1 tab PO MOWEFR 02/11/18 Aspirin [Aspirin, Baby] 81 mg PO DAILY@0800 02/22/18 Albuterol IH (ProAir) [Proair Hfa] 2 puff INHALATION Q4H PRN PRN 04/02/18 Buspirone HCl 7.5 mg PO DAILY 04/02/18 Famotidine 20 mg PO BID 04/02/18 Lidocaine [Lidoderm Patch] 1 patch TOPICAL PRN PRN 04/02/18 Mycophenolate Mofetil 1,500 mg PO BID 04/02/18 Sertraline HCl 50 mg PO DAILY 04/02/18 Warfarin [Coumadin (PBKC)] 3 mg PO DAILY 04/02/18 Surgical History: cholecystectomy, - - Spinal cord stimulator, status post removal, still have the connectors and wires. 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 Denies: Cough, Shortness of breath at rest, Sputum production Gastrointestinal: Denies: Abdominal Pain, Nausea, Vomiting Genitourinary: Denies: Dysuria Musculoskeletal: Denies: Joint Pain, Joint Tenderness Skin: Denies: Rash, Wounds Neurological: Reports: Headaches. Denies: Focal weakness, Numbness, Tingling Psychiatric: Denies: Anxiety, Depression Hematologic/ Lymphatic: Denies: Easy Bruising, Easy Bleeding VTE Information - Inpt Only VTE Present on Admission: No Patient Problems: Active and Suspected Problems SOB (shortness of breath) (Acute) - Physical Exam General: Alert, Oriented x3, Cooperative, No apparent distress HEENT: Atraumatic, PERRLA, EOMI, Normocephalic Oral: Moist Mucosa Neck: Supple, No JVD, Trachea Midline Lungs: Clear to auscultation, Normal air movement, No rhonchi, No wheeze, No rales, Diminished Cardiovascular: Regular rate, Regular Rhythm, Normal S1, Normal S2, No murmurs Abdomen: Soft, Non Tender, Non-Distended, No Hepato-splenomegaly Extremities: No edema, Capillary Refill Less than 3 Seconds Skin: No rashes, No breakdown Neurological: Neuro grossly intact, Sensory exam intact to light touch and pain Psych/Mental Status: Normal Affect, Appropriate Vital Signs Temp Pulse Resp BP Pulse Ox 98.3 F 57 L 16 151/86 H 98 04/02/18 14:19 04/02/18 14:58 04/02/18 14:19 04/02/18 14:19 04/02/18 14:47 Oxygen Delivery Method Room Air Weight: 238 lb 5.115 oz Body Mass Index (BMI) 39.6 Finger Stick Blood Glucose 71 Intake and Output for Last 24 Hours 03/31/18 04/01/18 04/02/18 23:59 23:59 23:59 Intake Total 240 / 240 Balance 240 / 240 Laboratory Tests Past 24 Hrs 04/02/18 04/02/18 04/02/18 09:34 09:34 09:34 WBC 9.2 RBC 4.39 Hgb 12.8 Hct 39.8 MCV 90.7 MCH 29.2 MCHC 32.2 RDW 15.2 H RDW Differential 49.8 H Plt Count 194 MPV 9.0 Neut % (Auto) Not Reportable Absolute Neuts (auto) 7.7 Absolute Lymphs (auto) 1.30 Total Counted 100 Neutrophils % (Manual) 81 H Band Neutrophils % 3 Lymphocytes % (Manual) 14 L Metamyelocytes % 2 H Diff Path Review May foll Platelet Estimate ADEQUATE RBC Morphology NORM C+C PT 18.3 H INR 1.5 Sodium 142 Potassium 3.7 Chloride 107 Carbon Dioxide 24.0 Anion Gap 11 BUN 17 Creatinine 0.83 Estim Creat Clear Calc 68.10 Est GFR (MDRD) Af Amer 92 Est GFR (MDRD) Non-Af 76 BUN/Creatinine Ratio 20.6 H Glucose 169 H Calcium 8.3 L Troponin I 0.064 H 04/02/18 14:53 WBC RBC Hgb Hct MCV MCH MCHC RDW RDW Differential Plt Count MPV Neut % (Auto) Absolute Neuts (auto) Absolute Lymphs (auto) Total Counted Neutrophils % (Manual) Band Neutrophils % Lymphocytes % (Manual) Metamyelocytes % Diff Path Review Platelet Estimate RBC Morphology PT INR Sodium Potassium Chloride Carbon Dioxide Anion Gap BUN Creatinine Estim Creat Clear Calc Est GFR (MDRD) Af Amer Est GFR (MDRD) Non-Af BUN/Creatinine Ratio Glucose Calcium Troponin I 0.068 H Assessment/Plan All Active Problems SOB (shortness of breath) (Acute) Hyperglycemia (Acute) Acute ischemic stroke (Acute) 1. Shortness of breath -She denies any chest pain with this episode -EKG is nonischemic -Initial troponin in the ER was 0.064 repeat was 0.068 -Troponin the middle of January was 0.091, however she was transferred to the [facility] and no cardiac workup was done -We will continue to trend troponin and will plan for a nuclear stress test in the morning -Echo in August demonstrated an EF of 65% with normal diastolic function 2. Right CVA/factor V Leiden heterozygous with history of DVT -She had a stroke back in August and CTA head demonstrated progressive narrowing and virtual nonvisualization of the supraclinoid segment of the right ICA also filling of the right MCA was likely across the KARLEY -She was initiated on Coumadin because of the history of DVT with the factor V Leiden as well as a CVA -INR is 1.5, will continue with her Coumadin 3 mg nightly she said this was recently decreased because she had been supratherapeutic -Daily INR, continue with aspirin and Lipitor 3. Chronic pain/RSD of right knee/anxiety/depression -RSD developed after right knee arthroscopy. She did have a spinal stimulator placed which did not help -She states that she has had it removed, but may still have the leads in -Of note she did have an MRI in August 2017 without issue -We will continue with her Zoloft, BuSpar as well as her Xanax while here -Can resume her oxycodone and methadone, QTc is normal 4. GERD -Stable -continue with Pepcid 5. 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
[2018-04-02] MEDS: Smz/Tmp Ds Tablet 1 TABLET PO (17:52)
[2018-04-02] MEDS: Famotidine 20 MG Tablet PO (21:27)
[2018-04-02] MEDS: ALPRAZolam 0.5 MG Tablet 1 MG PO (21:27)
[2018-04-02] MEDS: Mycophenolate Mofetil 250 MG Capsule 1500 MG PO (21:28)
[2018-04-02] MEDS: Atorvastatin Calcium 40 MG Tablet PO (21:28)
[2018-04-02] MEDS: 0.9% NaCl Peripheral Flush Adult/Peds IV (21:29)
[2018-04-03 02:09] VITALS: BP 128/75; PULSE 68; RESP 18; TEMP 36.6; O2SAT 95
[2018-04-03 03:04] VITALS: PULSE 61
[2018-04-03 05:24] LABS: Hematocrit 38.8 % (37-47); Hemoglobin 12.1 g/dl (12.0-15.0); Mean Corp Hgb Conc 31.2 g/gl (32-36); Mean Platelet Vol. 9.2 fl (6.2-12.0); Platelet Count 210 K/mm3 (150-450); RBC Distribution Width CV 15.4 % (11.6-14.6); RBC Distribution Width SD 51.1 fl (35.1-43.9); Red Blood Count 4.17 M/mm3 (4.2-5.4)
[2018-04-03 05:27] LABS: Scan Indicated on CBC? Y/N NO
[2018-04-03 05:35] LABS: Anion Gap 9 (5-15); BUN 11 mg/dL (7-18); BUN/Creat Ratio 13.5 RATIO (10-20); Calcium,Total 8.3 mg/dL (8.5-10.1); Chloride 105 mmol/L (98-107); Creatinine, Serum 0.81 mg/dL (0.55-1.02); EST Glomerular Filtration Rate 77 mL/min (>60); Est Glom Filt Rate - Afr Amer 94 mL/min (>60); Estimated Creatinine Clearance 69.78 ml/min; Glucose 92 mg/dL (74-106); International Normalized Ratio 1.4; Potassium 3.8 mmol/L (3.5-5.1); Prothrombin Time (Protime)PT. 17.2 SECONDS (11.7-14.9); Sodium Level 143 mmol/L (136-145)
[2018-04-03 05:36] LABS: Partial Thromboplast Time 31.7 Seconds (24.1-36.2)
--- NOTE | 2018-04-03 05:55 | EKG12_ITS ---
Test Reason : AM EKG Blood Pressure : / mmHG Vent. Rate : 066 BPM Atrial Rate : 066 BPM P-R Int : 112 ms QRS Dur : 086 ms QT Int : 398 ms P-R-T Axes : 028 030 056 degrees QTc Int : 417 ms Normal sinus rhythm Normal ECG When compared with ECG of 02-APR-2018 14:49, MANUAL COMPARISON REQUIRED, DATA IS UNCONFIRMED Confirmed by ANDRE BRENNAN, LINDA ([id number]), development editor LEANDRA WALTERS ([id number]) on 04/10/2018 11:53:05 AM Referred By: Juancarlos Cummins Confirmed By:LINDA POWELL MD
[2018-04-03 05:59] VITALS: BP 151/96; PULSE 88; RESP 18; TEMP 36.6; O2SAT 96
[2018-04-03] MEDS: Aspirin 81 MG TAB.CHEW PO (06:05)
[2018-04-03] MEDS: Famotidine 20 MG Tablet PO (06:05)
[2018-04-03 06:36] VITALS: PULSE 77
--- NOTE | 2018-04-03 08:49 | STRESSREP_ITS ---
Stress Test Report Pharmacologic myocardial perfusion stress test. 58-year-old lady with a history of hypertension and shortness of breath and mildly abnormal troponin. Medications: Lipitor, prednisone, Coumadin. Stress protocol: Resting EKG demonstrates sinus rhythm with a rate of 66 bpm normal intervals are noted resting blood pressure 142/80 mmHg. 0.4 mg of regadenoson was infused per usual protocol followed by rapid intravenous saline flush injection. Continuous EKG monitoring was performed. The maximum heart rate attained was 90 bpm which was 54% of maximum predicted heart rate the maximum workload was 1 metabolic equivalent. At rest there were no ST or T wave changes noted suggest abnormal flow reserve at peak infusion nonspecific ST-T wave changes were noted. The resting blood pressure 142/80 with a final blood pressure 144/84. Myocardial perfusion protocol. 14.5 mCi of technetium 99m sestamibi was injected at rest. 0.4 mg of re gadenoson was infused per usual protocol. At peak infusion 44.7 mCi of technetium 99m sestamibi was injected stress images were obtained stress and rest images were reconstructed and compared in the short axis vertical long and horizontal long axis. Gated images were also obtained per Perfusion SPECT analysis: Review of the stress images demonstrate normal uptake of tracer noted in all areas of myocardium. The resting images similarly demonstrate normal uptake of tracer noted in all areas of the myocardium. Mild anterior breast wall attenuation is noted. No areas of reversibility are noted suggest ischemia. Gated SPECT analysis: The gated ejection fraction was noted to be 74%. Conclusion: Normal pharmacologic myocardial perfusion stress test. Preserved ejection fraction.
[2018-04-03] MEDS: oxyCODONE 5 MG Tablet PO (08:59)
[2018-04-03] MEDS: busPIRone 15 MG TABLET 7.5 MG PO (09:01)
[2018-04-03] MEDS: Mycophenolate Mofetil 250 MG Capsule 1500 MG PO (09:02)
[2018-04-03] MEDS: Sertraline 50 MG Tablet PO (09:03)
[2018-04-03] MEDS: predniSONE 20 MG Tablet 40 MG PO (09:11)
--- NOTE | 2018-04-03 09:42 | DCINST_ITS ---
- Discharge Diagnoses Current Active Problems: Current Active and Chronic Problems SOB (shortness of breath) (Acute) You will use the following diet at home:: Regular Your food should be the consistency of: Regular Your liquids should be the consistency of: Regular/Thin Discharge Activity: Return to Normal Activity Call your doctor if you observe: Fever of 101 or Higher, Shortness of breath, Dizziness, Fainting spells, Chest pain, Increased palpitations (irregular heartbeat) Allergies/Adverse Reactions: Allergies acetaminophen [From Darvocet-N] Adverse Reaction (Verified 04/02/18 08:51) Nausea hydrocodone [From Vicodin] Adverse Reaction (Verified 04/02/18 08:51) Other pentazocine [From Talwin] Adverse Reaction (Verified 04/02/18 08:51) Other propoxyphene [From Darvocet-N] Adverse Reaction (Verified 04/02/18 08:51) Nausea PAPER TAPE Adverse Reaction (Uncoded 04/02/18 08:51) Other BLISTERS STERI-STRIPS Adverse Reaction (Uncoded 04/02/18 08:51) Other BLISTERS Medications to take at Discharge ALPRAZolam [Xanax] 1 mg PO QHS 09/19/17 Methadone HCl [(None)] 10 mg PO Q8H 09/19/17 Oxycodone HCl/Acetaminophen [Percocet 5/325] 1 tablet PO TID PRN PRN 09/19/17 Atorvastatin Calcium [Lipitor] 40 mg PO QHS 02/11/18 Prednisone See Taper PO DAILY 02/11/18 Smz/Tmp Ds [Bactrim Ds] 1 tab PO MOWEFR 02/11/18 Aspirin [Aspirin, Baby] 81 mg PO DAILY@0800 02/22/18 Albuterol IH (ProAir) [Proair Hfa] 2 puff INHALATION Q4H PRN PRN 04/02/18 Buspirone HCl 7.5 mg PO DAILY 04/02/18 Famotidine 20 mg PO BID 04/02/18 Lidocaine [Lidoderm Patch] 1 patch TOPICAL PRN PRN 04/02/18 Mycophenolate Mofetil 1,500 mg PO BID 04/02/18 Sertraline HCl 50 mg PO DAILY 04/02/18 Warfarin [Coumadin (PBKC)] 3 mg PO DAILY 04/02/18 Primary Care Physician: Sammi Rowley MD [Primary Care Provider] - Please follow up with your Primary Care Physician in: 3-5 days Test Results: Test results from this visit will be discussed in further detail at your follow- up appointment, if applicable.
[2018-04-03 09:46] VITALS: O2SAT 96
--- NOTE | 2018-04-03 09:51 | DS.PCM_ITS ---
Discharge Date and Diagnosis - Problem List Patient Problems: Active and Suspected Problems SOB (shortness of breath) (Acute) Date of Admission: 04/02/18 Date of Discharge: 04/03/18 - Primary Discharge Diagnosis Active and Suspected Problems SOB (shortness of breath) (Acute) - Secondary Discharge Diagnosis Chronic Problems Chronic back pain (Chronic) Anxiety (Chronic) Reflex sympathetic dystrophy (Chronic) Hospital Course and Treatment Imaging Results: 04/03/18 05:55 Nuclear Stress Test - Chemical [NM] AM (NON MEDS) CT Brain: IMPRESSION: Stable encephalomalacia in the right frontoparietal lobe. Consults: None Operations: None Procedures: Nuclear stress test - Perfusion SPECT analysis: Review of the stress images demonstrate normal uptake of tracer noted in all areas of myocardium. The resting images similarly demonstrate normal uptake of tracer noted in all areas of the myocardium. Mild anterior breast wall attenuation is noted. No areas of reversibility are noted suggest ischemia. Gated SPECT analysis: The gated ejection fraction was noted to be 74%. Conclusion: Normal pharmacologic myocardial perfusion stress test. Preserved ejection fraction. Summary of Care Provided: HPI: The patient is a 58 year old F with PMH as below who presents from work after becoming diaphoretic and having shortness of breath. She states that the shortness of breath has been getting worse over the last couple weeks, but she did finally return to work for the first time in 6 months after her stroke in August and had an episode of high blood pressure. The nurse at work took her blood pressure and said that it was 180 systolic. She was transferred to the ER where she continued to complain about shortness of breath though she did not require oxygen and also was found to have an elevated troponin to 0.06-4. Of note she was in the ER back in January and was having strokelike symptoms, with a troponin of 0.091 and was transferred to the [facility]. She states that she did not have any cardiac workup in that facility at that time. On presentation to the ER her blood pressures were stable in the 140s-150s, and the rest of her vital signs were normal. She currently is not diaphoretic and feels better than when she was at work. Denies any focal deficits and does not have any similar symptoms to her previous stroke or TIA. Hospital Course: 1. Shortness of breath/chest pain [id number]-old female with recent history of stroke as well as crest syndrome and factor V Leiden with a history of DVT presenting from work with shortness of breath as well as increased blood pressure. Of note in the middle of January she was in our ER with a troponin of 0.091 and was transferred to the [facility] for possible TIA. She states that she did not have a cardiac workup at that time. She presented to the hospital again with a slightly elevated troponin to 0.064, so we proceeded with a stress test which was normal. She did have an echo in August which demonstrated a normal EF with normal diastolic function. I did recommend that she follow-up with her PCP in 3-5 days. 2. Right CVA/factor V Leiden heterozygous with a history of DVT-she is currently on Coumadin for history of DVT and her factor V Leiden, she did have an INR on admission which was 1.5 and repeat on the day of discharge was 1.4. She states that she was recently decreased in her Coumadin dose because she had been supratherapeutic, however I do recommend that she take 4.5 mg nightly and have a recheck of her INR on Saturday. I did explain this to the patient and she understands. 3. Her other medical diagnoses were evaluated and her home medications were continued were appropriate Patient Problems: Active and Suspected Problems SOB (shortness of breath) (Acute) Objective: General: Alert, Oriented x3, Cooperative, No apparent distress HEENT: Atraumatic, PERRLA, EOMI, Normocephalic Oral: Moist Mucosa Neck: Supple, No JVD, Trachea Midline Lungs: Clear to auscultation, Normal air movement, No rhonchi, No wheeze, No rales, Diminished Cardiovascular: Regular rate, Regular Rhythm, Normal S1, Normal S2, No murmurs Abdomen: Soft, Non Tender, Non-Distended, No Hepato-splenomegaly Extremities: No edema, Capillary Refill Less than 3 Seconds Skin: No rashes, No breakdown Neurological: Neuro grossly intact, Sensory exam intact to light touch and pain Psych/Mental Status: Normal Affect, Appropriate - Physical Exam Vital Signs Temp Pulse Resp BP Pulse Ox 97.8 F 77 18 151/96 H 96 04/03/18 05:59 04/03/18 06:36 04/03/18 05:59 04/03/18 05:59 04/03/18 05:59 Oxygen Delivery Method Room Air Weight: 238 lb 5.115 oz Body Mass Index (BMI) 39.6 Finger Stick Blood Glucose 71 Intake and Output for Last 24 Hours 04/01/18 04/02/18 04/03/18 23:59 23:59 23:59 Intake Total 610 / 610 120 / 120 Balance 610 / 610 120 / 120 Laboratory Tests Past 24 Hrs 04/02/18 04/02/18 04/02/18 09:34 09:34 09:34 WBC 9.2 RBC 4.39 Hgb 12.8 Hct 39.8 MCV 90.7 MCH 29.2 MCHC 32.2 RDW 15.2 H RDW Differential 49.8 H Plt Count 194 MPV 9.0 Neut % (Auto) Not Reportable Absolute Neuts (auto) 7.7 Absolute Lymphs (auto) 1.30 Total Counted 100 Neutrophils % (Manual) 81 H Band Neutrophils % 3 Lymphocytes % (Manual) 14 L Metamyelocytes % 2 H Diff Path Review May foll Platelet Estimate ADEQUATE RBC Morphology NORM C+C PT 18.3 H INR 1.5 APTT Sodium 142 Potassium 3.7 Chloride 107 Carbon Dioxide 24.0 Anion Gap 11 BUN 17 Creatinine 0.83 Estim Creat Clear Calc 68.10 Est GFR (MDRD) Af Amer 92 Est GFR (MDRD) Non-Af 76 BUN/Creatinine Ratio 20.6 H Glucose 169 H Calcium 8.3 L Troponin I 0.064 H 04/02/18 04/02/18 04/02/18 14:53 18:05 20:30 WBC RBC Hgb Hct MCV MCH MCHC RDW RDW Differential Plt Count MPV Neut % (Auto) Absolute Neuts (auto) Absolute Lymphs (auto) Total Counted Neutrophils % (Manual) Band Neutrophils % Lymphocytes % (Manual) Metamyelocytes % Diff Path Review Platelet Estimate RBC Morphology PT INR APTT Sodium Potassium Chloride Carbon Dioxide Anion Gap BUN Creatinine Estim Creat Clear Calc Est GFR (MDRD) Af Amer Est GFR (MDRD) Non-Af BUN/Creatinine Ratio Glucose Calcium Troponin I 0.068 H 0.061 H 0.067 H 04/03/18 04/03/18 04/03/18 05:00 05:00 05:00 WBC 8.0 RBC 4.17 L Hgb 12.1 Hct 38.8 MCV 93.0 MCH 29.0 MCHC 31.2 L RDW 15.4 H RDW Differential 51.1 H Plt Count 210 MPV 9.2 Neut % (Auto) Absolute Neuts (auto) Absolute Lymphs (auto) Total Counted Neutrophils % (Manual) Band Neutrophils % Lymphocytes % (Manual) Metamyelocytes % Diff Path Review Platelet Estimate RBC Morphology PT 17.2 H INR 1.4 APTT 31.7 Sodium 143 Potassium 3.8 Chloride 105 Carbon Dioxide 29.0 Anion Gap 9 BUN 11 Creatinine 0.81 Estim Creat Clear Calc 69.78 Est GFR (MDRD) Af Amer 94 Est GFR (MDRD) Non-Af 77 BUN/Creatinine Ratio 13.5 Glucose 92 Calcium 8.3 L Troponin I Discharge Activity: Return to Normal Activity Call your doctor if you observe: Fever of 101 or Higher, Shortness of breath, Dizziness, Fainting spells, Chest pain, Increased palpitations (irregular heartbeat) Home Medications: Medications to take at Discharge ALPRAZolam [Xanax] 1 mg PO QHS 09/19/17 Methadone HCl 10 mg PO Q8H 09/19/17 Oxycodone HCl/Acetaminophen [Percocet 5-325] 1 tablet PO TID PRN PRN 09/19/17 Atorvastatin Calcium [Lipitor] 40 mg PO QHS 02/11/18 Prednisone See Taper PO DAILY 02/11/18 Smz/Tmp Ds [Bactrim Ds] 1 tab PO MOWEFR 02/11/18 Aspirin [Aspirin, Baby] 81 mg PO DAILY@0800 02/22/18 Albuterol IH (ProAir) [Proair Hfa] 2 puff INHALATION Q4H PRN PRN 04/02/18 Buspirone HCl 7.5 mg PO DAILY 04/02/18 Famotidine 20 mg PO BID 04/02/18 Lidocaine [Lidoderm Patch] 1 patch TOPICAL PRN PRN 04/02/18 Mycophenolate Mofetil 1,500 mg PO BID 04/02/18 Sertraline HCl 50 mg PO DAILY 04/02/18 Warfarin [Coumadin] 3 mg PO DAILY #0 04/03/18 Primary Care Physician: Sammi Rowley MD [Primary Care Provider] - Please follow up with your Primary Care Physician in: 3-5 days Additional Instructions: INR on Friday 04/07, take 4.5 mg of Coumadin nightly until then Disposition: Home Minutes spent on discharge:: 35 Patient Condition:: Good Medical Necessity - Tobacco Use Smoking Status: Former smoker Tobacco Use: Cigarettes Meaningful Use Info Meaningful Use Diagnoses (Choose all that apply): None applicable Code Visit OBSV E&M: 77323 Observation care discharge
[2018-04-03] MEDS: Ondansetron 4 MG/2 ML Vial IV (10:23)
[2018-04-03 11:01] VITALS: BP 143/92; PULSE 79; RESP 16; TEMP 36.6; O2SAT 96
[2018-04-03 12:32] LABS: Pathologist Review Reviewed
== END 2018-04-03 09:41 | disposition home or self-care (01) ==
LOC: ED 09:31 → PCU 12:59
PROVIDERS: Admitting Provider Family Medicine; Emergency Provider Emergency Medicine; Family Provider Internal Medicine; PCP Internal Medicine; Referring Provider Family Medicine; Visit Provider Family Medicine
DX: R06.02 Shortness of breath (principal); I10 Essential (primary) hypertension; M34.1 CR(E)ST syndrome; D68.51 Activated protein C resistance; G90.50 Complex regional pain syndrome I, unspecified; G89.29 Other chronic pain; F41.9 Anxiety disorder, unspecified; Z86.718 Personal history of other venous thrombosis and embolism; Z86.73 Personal history of transient ischemic attack (TIA), and cerebral infarction without residual deficits; Z79.899 Other long term (current) drug therapy; Z79.82 Long term (current) use of aspirin; Z79.01 Long term (current) use of anticoagulants; Z87.891 Personal history of nicotine dependence; F32.9 Major depressive disorder, single episode, unspecified
CPT/HCPCS: 36415; 70450; 78452; 80048; 84484; 85025; 85027; 85610; 85730; 93005; 93017; 96374; 96375; 96376; 99218; 99283; A9500; J7030; A4216; G0378; J2405; J2785

== ENCOUNTER → 2018-11-18 14:32 | Outpatient (CLI) | payer BC, SELFPAY ==
[2018-04-02 14:21] VITALS: BMI 39.6
--- NOTE | 2018-11-18 14:38 | EKG12_ITS ---
Test Reason : METHADONE USE Blood Pressure : / mmHG Vent. Rate : 056 BPM Atrial Rate : 056 BPM P-R Int : 156 ms QRS Dur : 086 ms QT Int : 402 ms P-R-T Axes : 026 035 054 degrees QTc Int : 387 ms Sinus bradycardia Otherwise normal ECG Confirmed by ANTONIO BRENNAN, VICTOR HUGO ([id number]), editor dictionary ROYCE AYALA ([id number]) on 11/19/2018 10:55:46 AM Referred By: OUT DOCTOR Confirmed By:VICTOR HUGO ALVAREZ MD
== END ==
PROVIDERS: Family Provider Internal Medicine; PCP Internal Medicine
DX: Z79.891 Long term (current) use of opiate analgesic (principal)
CPT/HCPCS: 93005

== ENCOUNTER → 2020-01-13 13:58 | Outpatient (CLI) | payer BC, SELFPAY ==
[2018-04-02 14:21] VITALS: BMI 39.6
--- NOTE | 2020-01-13 14:02 | EKG12_ITS ---
Test Reason : ROUTINE MED Blood Pressure : / mmHG Vent. Rate : 058 BPM Atrial Rate : 058 BPM P-R Int : 142 ms QRS Dur : 084 ms QT Int : 400 ms P-R-T Axes : 009 014 042 degrees QTc Int : 392 ms Sinus bradycardia Otherwise normal ECG Confirmed by ANDRE BRENNAN, LINDA ([id number]), sound editor ROYCE AYALA ([id number]) on 01/15/2020 10:57:34 AM Referred By: Cristofer Sparks Confirmed By:LINDA POWELL MD
== END ==
PROVIDERS: PCP Internal Medicine; Referring Provider Physician Assistant; Visit Provider Physician Assistant
DX: Z79.899 Other long term (current) drug therapy (principal)
CPT/HCPCS: 93005

== ENCOUNTER → 2021-03-20 10:21 | Outpatient (CLI) | payer BC, SELFPAY ==
--- NOTE | 2021-03-20 10:30 | EKG12_ITS ---
Test Reason : ON METHADONE Blood Pressure : / mmHG Vent. Rate : 050 BPM Atrial Rate : 050 BPM P-R Int : 142 ms QRS Dur : 082 ms QT Int : 438 ms P-R-T Axes : 037 012 043 degrees QTc Int : 399 ms Sinus bradycardia Otherwise normal ECG Confirmed by ANDRE BRENNAN, LINDA ([id number]), news video editor ROYCE AYALA ([id number]) on 03/21/2021 9:26:36 AM Referred By: Juan Pablo Diallo Confirmed By:LINDA POWELL MD
== END ==
PROVIDERS: PCP Internal Medicine
DX: Z79.891 Long term (current) use of opiate analgesic (principal)
CPT/HCPCS: 93005

== ENCOUNTER 2021-05-09 10:30 | Outpatient (RCR) | payer OTHER, SELFPAY ==
--- NOTE | 2021-01-03 11:11 | HP.PTEVAL_ITS ---
Patient's Visit Information STEPHANIE KNIGHT is a 60 year old F referred to Physical Therapy by Dr. Mitchell Rodriguez MD with a diagnosis of R shoulder sub scap repair, biceps tenodesis, SAD. Date of Evaluation: 01/02/21 Physical Therapist: Alfredo Shirley DPT - Visit Plan Frequency: 2x /Week Duration: 8 weeks Plan: Start with PROM of R shoulder into flexion and ER as indicated by protocol (medium to large tear). Use of ice and modalities to reduce pain and allow for increased tolerance to activities. - Subjective Pt. is here today for her initial evaluation with diagnosis of R RTC repair. She reports initially hurting her R shoulder when falling at work in June 2020. DOS 12/07/20. Pt. reports no N/T in either UE. Pt. to follow up with physician the 1st week in Jan. She arrives today with sling. She reports icing frequently and doing her pendulums. She is sleeping in a chair with sling on supported. Pt. had biceps tenodesis, subscap repair, subacromial decompression. Pt. to follow med/large protocol. She works at [employer] in the [employer] and has to be able to lift 50lbs work work activities. She has still having high levels of pain at rest and with sleeping. She is hopeful get back to all work and recreational activities without limitations. - Pain R shoulder Pain Intensity (Out of 10): 8 Pain Intensity Range: 8, 9 - Objective POSTURE: Pt. has R shoulder in guarded posture and supported with LUE. Pt. also has anterior rotated shoulder and slight FH posture. PALPATION: pt. has well healing incision. Stiches appear to still be place. (She is unsure when they are supposed to be taken out). Pt. has tenderness along biceps muscle belly and throughout R shoulder. NEURO: normal sensation to light and sharp touch today. Did not test reflexes due to surgical intervention. ROM: PROM: R shoulder- flexion 60deg empty end feel secondary to pain, abd not tested, ER to 0deg. L shoulder- AROM: full motion including functional ER/IR motions. MMT: R shoulder/elbow not tested due to surgical intervension. L shoulder/elbow 5/5 throughout. - Balance/Special Test Scores Quick DASH Score: 90.9075 - Goals Goal 1:: Pt. to be I with HEP. Goal Time Frame: 4-6 Weeks Goal 2:: STG: pt. to be able to sleep with 0-2/10 pain in R shoulder allowing for increased quality of life. Goal Time Frame: 2-4 Weeks Goal 3:: LTG: Pt. to have increased R shoulder ROM to at least 90deg of full motion of L shoulder. Goal Time Frame: 4-6 Weeks Goal 4:: LTG: Pt. to have increased AROM of R shoulder to full motion of L shoulder. Goal Time Frame: 6-8 Weeks Goal 5:: LTG: Pt. to have increased R shoulder strength including deltoid and RTC to at least 4/5 without increase in symptoms. Goal Time Frame: 12-16 Weeks - Rehabilitation Potential Physical Therapy Diagnosis: Pt. has signs and symptoms consistent with medium to large RTC tear with subsequent repair. Pt. continues to have increased pain, limited ROM, decreased strength, and limited functional use of her R UEs. Rehabilitation Potential: Excellent - Anticipated Interventions Patient/Client Instruction: Educate patient on: Condition, Plan of Care, Risk Factors, Benefits of Fitness Program For the Purpose of:: To improve self management, To prevent re-injury, To improve ability to perform tasks related to life management Therapeutic Exercise to Include: Strength training, Power training, Body mechanics, Postural training, Passive ROM, Active ROM, Scapular Strength/Stabilization Manual Therapy Techniques to Include: Mobilization, Passive ROM, Soft tissue mobilization For the Purpose of:: To decrease pain, To decrease swelling/inflammation, To increase ROM, To improve nutrient delivery to tissue TENS: Yes IF ES: Yes Thermo therapy (hot pack): Yes Ultrasound (thermal/non thermal): Yes For the Purpose of:: To decrease pain, To decrease swelling/inflammation, To increase ROM, To improve nutrient delivery to tissue, To increase oxygenation p erfusion, To improve muscle performance and motor function Thank you for the opportunity to evaluate your patient. For Medicare and Medicare HMO plans, please review the plan of care and approve it. It will need to be FAXED BACK to us at [phone] for Medicare purposes. For Medicare only, by signing this I certify the plan of care. Please let me know if there are questions or concerns regarding this plan of care. Physician Signature: Date:
--- NOTE | 2021-02-27 09:14 | HP.PTREVAL ---
Dr. Mitchell Rodriguez MD, It has been my pleasure to treat STEPHANIE KNIGHT over the last 5 visits for R shoulder sub scap repair, biceps tenodesis, SAD DOS: 12/07/20. Please see the progress note below for an update on the physical therapy plan of care! Subjective: Pt. reports I am doing a little bit better. Pt. reports being 40% better overall. 2/10 pain pre treatment. Objective/Function: ROM: PROM: R shoulder: flexion 130deg, abd 115deg, ER 20deg at side, IR 20deg. AAROM: flexion 130deg, abd 115deg, functional ER auditory meatus, functional IR gluteal range. I talked to her about consistency with stretching, She is slowly making progression. I would like her to be stretching more frequently at home. I gave her more wand exercises to work on at home as well. She is not where she needs to be with her ROM. She needs to stress more end range, but has been limited with her higher level of pain. She is making progress, just slowly. I would like her to continue with PT to work on her motion progressing towards end range. I talked to her about speaking with physician about C9 as well as me suggesting more PT visits is practical right now. Plan Plan: Requesting more visits to progress end range of motion both PROM and AAROM. Balance/Gait/Functional tests - Balance/Special Test Scores Quick DASH Score: 90.9075 Goals Goal 1:: Pt. to be I with HEP. Goal Time Frame: 4-6 Weeks Goal Progress: Progressing Goal 2:: STG: pt. to be able to sleep with 0-2/10 pain in R shoulder allowing for increased quality of life. Goal Time Frame: 2-4 Weeks Goal Progress: Progressing Goal 3:: LTG: Pt. to have increased R shoulder ROM to at least 90deg of full motion of L shoulder. Goal Time Frame: 4-6 Weeks Goal Progress: Progressing Goal 4:: LTG: Pt. to have increased AROM of R shoulder to full motion of L shoulder. Goal Time Frame: 6-8 Weeks Goal Progress: Progressing Goal 5:: LTG: Pt. to have increased R shoulder strength including deltoid and RTC to at least 4/5 without increase in symptoms. Goal Time Frame: 12-16 Weeks Goal Progress: Progressing Anticipated Interventions Patient/Client Instruction: Educate patient on: Condition, Plan of Care, Risk Factors, Benefits of Fitness Program For the Purpose of:: To improve self management, To prevent re-injury, To improve ability to perform tasks related to life management Therapeutic Exercise to Include: Strength training, Power training, Body mechanics, Postural training, Passive ROM, Active ROM, Scapular Strength/Stabilization Manual Therapy Techniques to Include: Mobilization, Passive ROM, Soft tissue mobilization For the Purpose of:: To decrease pain, To decrease swelling/inflammation, To increase ROM, To improve nutrient delivery to tissue TENS: Yes IF ES: Yes Thermo therapy (hot pack): Yes Ultrasound (thermal/non thermal): Yes For the Purpose of:: To decrease pain, To decrease swelling/inflammation, To increase ROM, To improve nutrient delivery to tissue, To increase oxygenation perfusion, To improve muscle performance and motor function Please do not hesitate to contact me at [phone] by phone or if you have questions or concerns regarding this new plan of care! Sincerely, ISIDORO OretgaT
--- NOTE | 2021-02-28 08:06 | HP.PTREVAL ---
Dr. Mitchell Rodriguez MD, It has been my pleasure to treat STEPHANIE KNIGHT over the last 15 visits for R shoulder sub scap repair, biceps tenodesis, SAD DOS: 12/07/20. Please see the progress note below for an update on the physical therapy plan of care! Subjective: Pt. reports I am doing a little bit better. Pt. reports being 40% better overall. 2/10 pain pre treatment. Objective/Function: ROM: PROM: R shoulder: flexion 130deg, abd 115deg, ER 20deg at side, IR 20deg. AAROM: flexion 130deg, abd 115deg, functional ER auditory meatus, functional IR gluteal range. I talked to her about consistency with stretching, She is slowly making progression. I would like her to be stretching more frequently at home. I gave her more wand exercises to work on at home as well. She is not where she needs to be with her ROM. She needs to stress more end range, but has been limited with her higher level of pain. She is making progress, just slowly. I would like her to continue with PT to work on her motion progressing towards end range. I talked to her about speaking with physician about C9 as well as me suggesting more PT visits is practical right now. Plan Plan: Requesting more visits to progress end range of motion both PROM and AAROM. Balance/Gait/Functional tests - Balance/Special Test Scores Quick DASH Score: 90.9075 Goals Goal 1:: Pt. to be I with HEP. Goal Time Frame: 4-6 Weeks Goal Progress: Progressing Goal 2:: STG: pt. to be able to sleep with 0-2/10 pain in R shoulder allowing for increased quality of life. Goal Time Frame: 2-4 Weeks Goal Progress: Progressing Goal 3:: LTG: Pt. to have increased R shoulder ROM to at least 90deg of full motion of L shoulder. Goal Time Frame: 4-6 Weeks Goal Progress: Progressing Goal 4:: LTG: Pt. to have increased AROM of R shoulder to full motion of L shoulder. Goal Time Frame: 6-8 Weeks Goal Progress: Progressing Goal 5:: LTG: Pt. to have increased R shoulder strength including deltoid and RTC to at least 4/5 without increase in symptoms. Goal Time Frame: 12-16 Weeks Goal Progress: Progressing Anticipated Interventions Patient/Client Instruction: Educate patient on: Condition, Plan of Care, Risk Factors, Benefits of Fitness Program For the Purpose of:: To improve self management, To prevent re-injury, To improve ability to perform tasks related to life management Therapeutic Exercise to Include: Strength training, Power training, Body mechanics, Postural training, Passive ROM, Active ROM, Scapular Strength/Stabilization Manual Therapy Techniques to Include: Mobilization, Passive ROM, Soft tissue mobilization For the Purpose of:: To decrease pain, To decrease swelling/inflammation, To increase ROM, To improve nutrient delivery to tissue TENS: Yes IF ES: Yes Thermo therapy (hot pack): Yes Ultrasound (thermal/non thermal): Yes For the Purpose of:: To decrease pain, To decrease swelling/inflammation, To increase ROM, To improve nutrient delivery to tissue, To increase oxygenation perfusion, To improve muscle performance and motor function Please do not hesitate to contact me at [phone] by phone or if you have questions or concerns regarding this new plan of care! Sincerely, ISIDORO OrtegaT
--- NOTE | 2021-02-28 08:18 | HP.PTREVAL_ITS ---
Dr. Mitchell Rodriguez MD, It has been my pleasure to treat STEPHANIE KNIGHT over the last 16 visits for R shoulder sub scap repair, biceps tenodesis, SAD DOS: 12/07/20. Please see the progress note below for an update on the physical therapy plan of care! Subjective: Pt. arrives today with reports of overall doing well. Pt. reports pain has been much better since taking muscle relaxers. Pt. reports doing her stretching exercises, but not as frequent the past few days as she was on vacation for a few days. No pain currently at rest. Objective/Function: Pt. tolerated all PT this date. Pt. is slowly progressing with her ROM, but needs to be consistent with stretching at home. Pt. is getting better tolerance to PROM and AAROM, but again is slowly. I gave her end range stretching and phase II RTC AAROM exercises with focus on end range of motion to complete for HEP. Pt. consents. Plan Plan: Pt. is awaiting C9 approval for further visits. She is to work on end range stretching with PROM and with AAROM at home until approval. Pt. consents. I gave her a print out with above exercises on it to increase carry over. Balance/Gait/Functional tests - Balance/Special Test Scores Quick DASH Score: 90.9075 Goals Goal 1:: Pt. to be I with HEP. Goal Time Frame: 4-6 Weeks Goal Progress: Progressing Goal 2:: STG: pt. to be able to sleep with 0-2/10 pain in R shoulder allowing for increased quality of life. Goal Time Frame: 2-4 Weeks Goal Progress: Progressing Goal 3:: LTG: Pt. to have increased R shoulder ROM to at least 90deg of full motion of L shoulder. Goal Time Frame: 4-6 Weeks Goal Progress: Progressing Goal 4:: LTG: Pt. to have increased AROM of R shoulder to full motion of L shoulder. Goal Time Frame: 6-8 Weeks Goal Progress: Progressing Goal 5:: LTG: Pt. to have increased R shoulder strength including deltoid and RTC to at least 4/5 without increase in symptoms. Goal Time Frame: 12-16 Weeks Goal Progress: Progressing Anticipated Interventions Patient/Client Instruction: Educate patient on: Condition, Plan of Care, Risk Factors, Benefits of Fitness Program For the Purpose of:: To improve self management, To prevent re-injury, To improve ability to perform tasks related to life management Therapeutic Exercise to Include: Strength training, Power training, Body mechanics, Postural training, Passive ROM, Active ROM, Scapular Strength/Stabilization Manual Therapy Techniques to Include: Mobilization, Passive ROM, Soft tissue mobilization For the Purpose of:: To decrease pain, To decrease swelling/inflammation, To increase ROM, To improve nutrient delivery to tissue TENS: Yes IF ES: Yes Thermo therapy (hot pack): Yes Ultrasound (thermal/non thermal): Yes For the Purpose of:: To decrease pain, To decrease swelling/inflammation, To increase ROM, To improve nutrient delivery to tissue, To increase oxygenation perfusion, To improve muscle performance and motor function Please do not hesitate to contact me at [phone] by phone or Fax: if you have questions or concerns regarding this new plan of care! Sincerely, ISIDORO OrtegaT
--- NOTE | 2021-03-15 14:50 | HP.PTREVAL ---
Dr. Mitchell Rodriguez MD, It has been my pleasure to treat STEPHANIE KNIGHT over the last 20 visits for R shoulder sub scap repair, biceps tenodesis, SAD DOS: 12/07/20. Please see the progress note below for an update on the physical therapy plan of care! Subjective: Pt. reports overall doing okay. She continues to c/o increased pain with any movements. She reports being sore after last visit as I have steadily increased aggressiveness with her stretching. Objective/Function: I focused again on increasing ROM. I added in contract relax techniques with flexion, ER and Abd stretching. Seemed to increase tolerance with end ranges stretching. She continues to be stiff, with most over head activities. I again stressed consistency with stretching at home. ROM: PROM: R shoulder: flexion 135deg, abd 135deg, ER at 90deg 60deg, IR at 90deg 30deg. She had been completing sleeper stretching and wand exercises at home. I continue to stress need for consistency with stretching and to work into tissue resistance. Pt. consents. Plan Plan: Cont. to focus on aggressive end range stretching. Add in contract relax techniques and frequent stretching to increase tolerance and tissue motion. Balance/Gait/Functional tests - Balance/Special Test Scores Quick DASH Score: 52.2725 Goals Goal 1:: Pt. to be I with HEP. Goal Time Frame: 4-6 Weeks Goal Progress: Progressing Goal 2:: STG: pt. to be able to sleep with 0-2/10 pain in R shoulder allowing for increased quality of life. Goal Time Frame: 2-4 Weeks Goal Progress: Progressing Goal 3:: LTG: Pt. to have increased R shoulder ROM to at least 90deg of full motion of L shoulder. Goal Time Frame: 4-6 Weeks Goal Progress: Progressing Goal 4:: LTG: Pt. to have increased AROM of R shoulder to full motion of L shoulder. Goal Time Frame: 6-8 Weeks Goal Progress: Progressing Goal 5:: LTG: Pt. to have increased R shoulder strength including deltoid and RTC to at least 4/5 without increase in symptoms. Goal Time Frame: 12-16 Weeks Goal Progress: Progressing Anticipated Interventions Patient/Client Instruction: Educate patient on: Condition, Plan of Care, Risk Factors, Benefits of Fitness Program For the Purpose of:: To improve self management, To prevent re-injury, To improve ability to perform tasks related to life management Therapeutic Exercise to Include: Strength training, Power training, Body mechanics, Postural training, Passive ROM, Active ROM, Scapular Strength/Stabilization Manual Therapy Techniques to Include: Mobilization, Passive ROM, Soft tissue mobilization For the Purpose of:: To decrease pain, To decrease swelling/inflammation, To increase ROM, To improve nutrient delivery to tissue TENS: Yes IF ES: Yes Thermo therapy (hot pack): Yes Ultrasound (thermal/non thermal): Yes For the Purpose of:: To decrease pain, To decrease swelling/inflammation, To increase ROM, To improve nutrient delivery to tissue, To increase oxygenation perfusion, To improve muscle performance and motor function Please do not hesitate to contact me at [phone] by phone or if you have questions or concerns regarding this new plan of care! Sincerely, ISIDORO OrtegaT
--- NOTE | 2021-03-28 15:29 | HP.PTREVAL_ITS ---
Dr. Mitchell Rodriguez MD, It has been my pleasure to treat STEPHANIE KNIGHT over the last 22 visits for R shoulder sub scap repair, biceps tenodesis, SAD DOS: 12/07/20. Please see the progress note below for an update on the physical therapy plan of care! Subjective: Pt. reports continues soreness. It bothers me a lot when I do anything over head and with reaching. I get sharp pains at times. She reports stretching at home. Pain currently at 2/10, gets up to 5/10 at times. Objective/Function: Pt. tolerated all PT. She does have a large amount of soreness with end range flexion, ER and scaption. Pt. continues to present with signs of adhesive capsulitis. She is limited with ER, flexion and IR motions. She is very limited secondary to pain. Cont to progress [place] flexibility and ER/IR. She is tight, but continues be limited secondary to pain as well. I am concerned about her flexibility and tolerance to stretching with her R shoulder. Plan Plan: Cont. to focus on aggressive end range stretching. Add in contract relax techniques and frequent stretching to increase tolerance and tissue motion. Balance/Gait/Functional tests - Balance/Special Test Scores Quick DASH Score: 52.2725 Goals Goal 1:: Pt. to be I with HEP. Goal Time Frame: 4-6 Weeks Goal Progress: Progressing Goal 2:: STG: pt. to be able to sleep with 0-2/10 pain in R shoulder allowing for increased quality of life. Goal Time Frame: 2-4 Weeks Goal Progress: Progressing Goal 3:: LTG: Pt. to have increased R shoulder ROM to at least 90deg of full motion of L shoulder. Goal Time Frame: 4-6 Weeks Goal Progress: Progressing Goal 4:: LTG: Pt. to have increased AROM of R shoulder to full motion of L shoulder. Goal Time Frame: 6-8 Weeks Goal Progress: Progressing Goal 5:: LTG: Pt. to have increased R shoulder strength including deltoid and RTC to at least 4/5 without increase in symptoms. Goal Time Frame: 12-16 Weeks Goal Progress: Progressing Anticipated Interventions Patient/Client Instruction: Educate patient on: Condition, Plan of Care, Risk Factors, Benefits of Fitness Program For the Purpose of:: To improve self management, To prevent re-injury, To improve ability to perform tasks related to life management Therapeutic Exercise to Include: Strength training, Power training, Body mechanics, Postural training, Passive ROM, Active ROM, Scapular Strength/Sta bilization Manual Therapy Techniques to Include: Mobilization, Passive ROM, Soft tissue mobilization For the Purpose of:: To decrease pain, To decrease swelling/inflammation, To increase ROM, To improve nutrient delivery to tissue TENS: Yes IF ES: Yes Thermo therapy (hot pack): Yes Ultrasound (thermal/non thermal): Yes For the Purpose of:: To decrease pain, To decrease swelling/inflammation, To increase ROM, To improve nutrient delivery to tissue, To increase oxygenation perfusion, To improve muscle performance and motor function Please do not hesitate to contact me at [phone] by phone or if you have questions or concerns regarding this new plan of care! Sincerely, ISIDORO OrtegaT
--- NOTE | 2021-04-04 14:13 | HP.PTREVAL ---
Dr. Mitchell Rodriguez MD, It has been my pleasure to treat STEPHANIE KNIGHT over the last 24 visits for R shoulder sub scap repair, biceps tenodesis, SAD DOS: 12/07/20. Please see the progress note below for an update on the physical therapy plan of care! Subjective: Pt. to see physician at [facility] today. Pt. reports increased pain and difficulty sleeping last night. She reports I did something and it popped. I thought that it might have been a good thing. Pt. continues to have high levels of pain, nothing seemed to have change since she reported this movement. Objective/Function: I continue to apply increasing force through her GH joint with flexion, abd, scaption, ER, IR in all ranges. She does not tolerate overly well. She does appear to have slight increase in tolerance with flexion, but still very limited with ER motions. She is following up with [facility] physician later today. I am concerned about adhesive capsulitis. I have tried to be more aggressive with stretching but she does not tolerate well at all. Plan Plan: Cont. to focus on aggressive end range stretching. Add in contract relax techniques and frequent stretching to increase tolerance and tissue motion. Balance/Gait/Functional tests - Balance/Special Test Scores Quick DASH Score: 52.2725 Goals Goal 1:: Pt. to be I with HEP. Goal Time Frame: 4-6 Weeks Goal Progress: Progressing Goal 2:: STG: pt. to be able to sleep with 0-2/10 pain in R shoulder allowing for increased quality of life. Goal Time Frame: 2-4 Weeks Goal Progress: Progressing Goal 3:: LTG: Pt. to have increased R shoulder ROM to at least 90deg of full motion of L shoulder. Goal Time Frame: 4-6 Weeks Goal Progress: Progressing Goal 4:: LTG: Pt. to have increased AROM of R shoulder to full motion of L shoulder. Goal Time Frame: 6-8 Weeks Goal Progress: Progressing Goal 5:: LTG: Pt. to have increased R shoulder strength including deltoid and RTC to at least 4/5 without increase in symptoms. Goal Time Frame: 12-16 Weeks Goal Progress: Progressing Anticipated Interventions Patient/Client Instruction: Educate patient on: Condition, Plan of Care, Risk Factors, Benefits of Fitness Program For the Purpose of:: To improve self management, To prevent re-injury, To improve ability to perform tasks related to life management Therapeutic Exercise to Include: Strength training, Power training, Body mechanics, Postural training, Passive ROM, Active ROM, Scapular Strength/Stabilization Manual Therapy Techniques to Include: Mobilization, Passive ROM, Soft tissue mobilization For the Purpose of:: To decrease pain, To decrease swelling/inflammation, To increase ROM, To improve nutrient delivery to tissue TENS: Yes IF ES: Yes Thermo therapy (hot pack): Yes Ultrasound (thermal/non thermal): Yes For the Purpose of:: To decrease pain, To decrease swelling/inflammation, To increase ROM, To improve nutrient delivery to tissue, To increase oxygenation perfusion, To improve muscle performance and motor function Please do not hesitate to contact me at [phone] by phone or if you have questions or concerns regarding this new plan of care! Sincerely, ISIDORO OrtegaT
--- NOTE | 2021-05-04 14:15 | HP.PTREVAL_ITS ---
Dr. Mitchell Rodriguez MD, It has been my pleasure to treat STEPHANIE KNIGHT over the last 30 visits for R shoulder sub scap repair, biceps tenodesis, SAD DOS: 12/07/20. Please see the progress note below for an update on the physical therapy plan of care! Subjective: Pt. reports she was reduced her hours by 2 hours at work. She is tolerating work better, but is sore. She is less sore today than she was the other day. She reports 3/10 pain in R anterior shoulder today. Objective/Function: Pt. had increased tolerated with stretching and ROM today. She had increased tolerance with stretching to ~140deg flexion, abd 145deg, ER at 45deg to 40deg. Pt. is tight in this range and reports higher levels of pain. Pt. did appear to have better tolerance this date. She does seem a bit better, but still limited secondary to high levels of pain, but today is better than previous. Pt. does have a leathery end feel with ER, but limited with flexion and abduction secondary to pain. I was able to achieve increased ROM with better tolerance today. Plan Plan: Pt. current C9 is expiring and will need another if she is to continue with PT. She is to see physician at the end of the month. Balance/Gait/Functional tests - Balance/Special Test Scores Quick DASH Score: 52.2725 Goals Goal 1:: Pt. to be I with HEP. Goal Time Frame: 4-6 Weeks Goal Progress: Progressing Goal 2:: STG: pt. to be able to sleep with 0-2/10 pain in R shoulder allowing for increased quality of life. Goal Time Frame: 2-4 Weeks Goal Progress: Progressing Goal 3:: LTG: Pt. to have increased R shoulder ROM to at least 90deg of full motion of L shoulder. Goal Time Frame: 4-6 Weeks Goal Progress: Goal Met Goal 4:: LTG: Pt. to have increased AROM of R shoulder to full motion of L shoulder. Goal Time Frame: 6-8 Weeks Goal Progress: Progressing Goal 5:: LTG: Pt. to have increased R shoulder strength including deltoid and RTC to at least 4/5 without increase in symptoms. Goal Time Frame: 12-16 Weeks Goal Progress: Progressing Anticipated Interventions Patient/Client Instruction: Educate patient on: Condition, Plan of Care, Risk Factors, Benefits of Fitness Program For the Purpose of:: To improve self management, To prevent re-injury, To improve ability to perform tasks related to life management Therapeutic Exercise to Include: Strength training, Power training, Body me chanics, Postural training, Passive ROM, Active ROM, Scapular Strength/Stabilization Manual Therapy Techniques to Include: Mobilization, Passive ROM, Soft tissue mobilization For the Purpose of:: To decrease pain, To decrease swelling/inflammation, To increase ROM, To improve nutrient delivery to tissue TENS: Yes IF ES: Yes Thermo therapy (hot pack): Yes Ultrasound (thermal/non thermal): Yes For the Purpose of:: To decrease pain, To decrease swelling/inflammation, To increase ROM, To improve nutrient delivery to tissue, To increase oxygenation perfusion, To improve muscle performance and motor function Please do not hesitate to contact me at [phone] by phone or if you have questions or concerns regarding this new plan of care! Sincerely, Alfredo Shirley DPT
--- NOTE | 2021-05-10 10:02 | HP.PTREVAL ---
Dr. Mitchell Rodriguez MD, It has been my pleasure to treat STEPHANIE KNIGHT over the last 31 visits for R shoulder sub scap repair, biceps tenodesis, SAD DOS: 12/07/20. Please see the progress note below for an update on the physical therapy plan of care! Subjective: Pt. reports doing okay today. Pt. is still having pain. Pt. reports stretching at home. She is still having pain with any movement of her R shoulder. 3/10 pain pre treatment today. Objective/Function: Pt. had a slight better tolerated with stretching today. Pt. reports pain at end ranges of tolerance. She is still limited with flexion, abduction by ~45deg in both. Her greatest limitation is with ER at 90deg of abd she has 40deg of this motion. She continues to be very limited by pain. She does not tolerate very well. She does have a tight end feel at all ranges, but is mostly limited by pain. I fear of adhesive capsulitis. We have focused on stretching throughout with joint mobs with progressive stretching. Pt. is slightly better but progressing slower than expected. Plan Plan: Pt. needing new C9. Pt. is slightly better but progressing slower than expected. She is not tolerating scratching very well secondary to pain. Balance/Gait/Functional tests - Balance/Special Test Scores Quick DASH Score: 52.2725 Goals Goal 1:: Pt. to be I with HEP. Goal Time Frame: 4-6 Weeks Goal Progress: Progressing Goal 2:: STG: pt. to be able to sleep with 0-2/10 pain in R shoulder allowing for increased quality of life. Goal Time Frame: 2-4 Weeks Goal Progress: Progressing Goal 3:: LTG: Pt. to have increased R shoulder ROM to at least 90deg of full motion of L shoulder. Goal Time Frame: 4-6 Weeks Goal Progress: Goal Met Goal 4:: LTG: Pt. to have increased AROM of R shoulder to full motion of L shoulder. Goal Time Frame: 6-8 Weeks Goal Progress: Progressing Goal 5:: LTG: Pt. to have increased R shoulder strength including deltoid and RTC to at least 4/5 without increase in symptoms. Goal Time Frame: 12-16 Weeks Goal Progress: Progressing Anticipated Interventions Patient/Client Instruction: Educate patient on: Condition, Plan of Care, Risk Factors, Benefits of Fitness Program For the Purpose of:: To improve self management, To prevent re-injury, To improve ability to perform tasks related to life management Therapeutic Exercise to Include: Strength training, Power training, Body mechanics, Postural training, Passive ROM, Active ROM, Scapular Strength/Stabilization Manual Therapy Techniques to Include: Mobilization, Passive ROM, Soft tissue mobilization For the Purpose of:: To decrease pain, To decrease swelling/inflammation, To increase ROM, To improve nutrient delivery to tissue TENS: Yes IF ES: Yes Thermo therapy (hot pack): Yes Ultrasound (thermal/non thermal): Yes For the Purpose of:: To decrease pain, To decrease swelling/inflammation, To increase ROM, To improve nutrient delivery to tissue, To increase oxygenation perfusion, To improve muscle performance and motor function Please do not hesitate to contact me at [phone] by phone or if you have questions or concerns regarding this new plan of care! Sincerely, ISIDORO OrtegaT
== END 2021-05-09 19:00 | disposition home or self-care (01) ==
LOC: PT 10:30
PROVIDERS: PCP Internal Medicine; Visit Provider Orthopaedic Surgery Sports Medicine
DX: M75.101 Unspecified rotator cuff tear or rupture of right shoulder, not specified as traumatic (principal); M75.41 Impingement syndrome of right shoulder
CPT/HCPCS: 97110; 97140; 97161; 97164

== ENCOUNTER 2021-08-12 20:37 | Inpatient (IN) | payer BC, SELFPAY ==
[2021-08-12 20:37] VITALS: BP 163/73; PULSE 63; RESP 16; TEMP 37.5; O2SAT 91; BMI 42.1
[2021-08-12 20:51] VITALS: BP 163/85; PULSE 69; RESP 20; TEMP 36.6; O2SAT 91; O2SAT 93; O2SAT 96
--- NOTE | 2021-08-12 20:51 | EKG12_ITS ---
Test Reason : REPEAT Blood Pressure : / mmHG Vent. Rate : 071 BPM Atrial Rate : 071 BPM P-R Int : 158 ms QRS Dur : 084 ms QT Int : 366 ms P-R-T Axes : 042 027 051 degrees QTc Int : 397 ms Normal sinus rhythm Normal ECG Confirmed by LINDA POWELL MD ([id number]), editorial assistant VIRAJ MICHAUD ([id number]) on 08/14/2021 10:39:57 AM Referred By: Confirmed By:LINDA POWELL MD
--- NOTE | 2021-08-12 20:58 | EDS_ITS ---
HPI History of Present Illness Chief Complaint: Shortness of Breath Informant: patient and family Onset/Context/Timing Onset: Days Context: gradual Timing: Continuous Quality: Positive for Wheezing Current Severity: Mild Maximum Severity: Mild Worsened by: Nothing Associated Symptoms Negative for cough, rhinorrhea, fever or sore throat Chest Pain: Positive for Pleuritic Narrative Narrative: 61-year-old female has factor V Leiden deficiency. History of prior leg DVT but no PE. Recently had right rotator cuff surgery at the [facility] in [place]. That was done on August 10. She did have to stay overnight. Postoperatively she needed oxygen and a breathing treatment. States that she is short of breath last several days with wheezing. No fever. No URI symptoms. No chest pain except with breathing. No hemoptysis. No leg swelling. PE Risk Factors: Positive for Prior DVT or PE, Recent immobilization and Recent surgery; Negative for Cancer, OCP + Smoking + > 35 or Recent travel Prior similar symptoms: No Recent Illness/Hospitalization: Yes PFSH PFSH Medical History Factor V deficiency Hyperlipemia Home Medications alprazolam 1 mg tablet (Xanax) 1 mg PO QHS sleep 09/19/17 [History Last Taken 04/01/18] methadone 10 mg tablet 10 mg PO Q8H pain 09/19/17 [History Last Taken 04/02/18] oxycodone-acetaminophen 5 mg-325 mg tablet 1 tab PO TID PRN PRN Pain 09/19/17 [History Last Taken 04/01/18] atorvastatin 40 mg tablet 40 mg PO QHS cholesterol 02/11/18 [History Last Taken 04/01/18] prednisone 20 mg tablet See Taper PO DAILY inflamation 02/11/18 [History Last Taken 04/02/18] sulfamethoxazole 800 mg-trimethoprim 160 mg tablet 1 tab PO MOWEFR infection 02/11/18 [History Last Taken 03/31/18] aspirin 81 mg chewable tablet 81 mg PO DAILY@0800 heart health 02/22/18 [History Last Taken 04/02/18] albuterol sulfate 90 mcg/actuation aerosol inhaler (ProAir HFA) 2 puff inhalation Q4H PRN PRN Sob &/Or Wheezing 04/02/18 [History Last Taken Unknown] buspirone 7.5 mg tablet 7.5 mg PO DAILY anxiety 04/02/18 [History Last Taken 04/01/18] famotidine 20 mg tablet 20 mg PO BID reflux 04/02/18 [History Last Taken 04/02/18] lidocaine 5 % topical patch 1 patch topical PRN PRN Pain 04/02/18 [History Last Taken Unknown] mycophenolate mofetil 500 mg tablet 1,500 mg PO BID rejection 04/02/18 [History Last Taken 04/01/18] sertraline 50 mg tablet 50 mg PO DAILY depression 04/02/18 [History Last Taken 04/01/18] warfarin 3 mg tablet (Febtoven) 3 mg PO DAILY blood thinner ##0 04/03/18 [Rx Last Taken 04/01/18] Allergy/AdvReac Type Severity Reaction Status Date / Time acetaminophen AdvReac Nausea Verified 04/02/18 08:51 [From Darvocet-N] hydrocodone [From Vicodin] AdvReac Other Verified 04/02/18 08:51 pentazocine [From Talwin] AdvReac Other Verified 04/02/18 08:51 propoxyphene AdvReac Nausea Verified 04/02/18 08:51 [From Darvocet-N] PAPER TAPE AdvReac Other Uncoded 04/02/18 08:51 STERI-STRIPS AdvReac Other Uncoded 04/02/18 08:51 Surgical History (Updated 08/12/21 @ 20:59 by Gerald Camara) H/O rotator cuff surgery Social History Smoking Status: Smoker, status unknown ROS ROS ED ROS Narrative Shortness of breath. Wheezing. Review of Systems ROS Unobtainable: Denies due to encephalopathy Constitutional Constitutional ED: Denies chills Eyes Eyes: Denies blurry vision ENT ENT ED: Denies ear pain Cardiovascular Cardiovascular: Reports chest pain; Denies palpitations Respiratory/Chest Respiratory/Chest: Reports dyspnea; Denies cough Gastrointestinal Gastrointestinal: Denies abdominal pain, constipation or diarrhea Genitourinary Genitourinary ED: Denies dysuria or hematuria Musculoskeletal Musculoskeletal: Denies arthralgias Integumentary Denies abscess Neurologic Neurologic: Denies headache(s) Psychiatric Psychiatric: Denies anxiety Endocrine Endocrinology: Denies cold intolerance Hematologic/Lymphatic Hematologic/Lymphatic: Denies easy bleeding Allergic/Immunologic Allergic/Immunologic ED: Denies mouth swelling EXAM Physical Exam Narrative Exam Narrative: 61-year-old female no acute distress. Temperature nine 9.5. Pulse ox 91% on room air. Reportedly per family it was in the 80s at home. H EENT exam unremarkable. Neck nontender no JVD. No lymphadenopathy. Lungs expiratory wheezes. No rales or rhonchi. Heart regular rhythm rate about 63 no murmur. Chest wall nontender. Abdomen soft nontender. Moving all 4 extremities. No edema. Neurologically she is awake. She is answering questions and following commands. Her right arm is in a splint from her recent rotator cuff surgery. Const Vital Signs: 08/12/21 20:37 08/12/21 20:51 08/12/21 20:51 Temperature 99.5 F H 97.8 F Temperature Source Temporal Oral Pulse Rate 63 69 Respiratory Rate 16 20 H Respiratory Effort Respiratory Depth Blood Pressure 163/73 H 163/85 H Blood Pressure Mean 103 111 Pulse Ox 91 93 91 Oxygen Delivery Method Room Air Room Air Room Air Oxygen Flow Rate (L/min) Fraction of Inspired Oxygen (FIO2) 08/12/21 20:51 Temperature Temperature Source Pulse Rate Respiratory Rate Respiratory Effort Short of Breath Respiratory Depth Shallow Blood Pressure Blood Pressure Mean Pulse Ox Oxygen Delivery Method Nasal Cannula Oxygen Flow Rate (L/min) 2 Fraction of Inspired Oxygen (FIO2) 2 Positive well nourished, well developed and obese; Negative for cachectic, contractures or unkempt General Appearance ED: well developed; Negative for unkempt, cachectic, contra ctures or pallor Nutritional Appearance: obese; Negative for cachectic HEENT Reports moist mucous membranes; Denies dry mucous membranes atraumatic; Negative for trauma or tenderness Mouth ED: No dry mucous membranes Mouth: No dry mucous membranes Eyes PERRL and EOMs intact bilaterally General Eye ED: Negative for pale conjunctiva or scleral icterus Neck no lymphadenopathy, supple, no meningeal signs and no JVD Resp normal respiratory effort and No clear to auscultation bilaterally Auscultation: wheezes Cardio regular rate, regular rhythm, S1 normal heart sound and S2 normal heart sound Rate: Negative for bradycardia or tachycardic Rhythm: Negative for abnormal rhythm GI non-tender, non-distended and no masses Auscultation: normoactive bowel sounds Palpation: soft; Negative for tender or guarding Back/Spine no CVA tenderness General Back: Negative for CVA tenderness Extremity normal to inspection Extremity Narrative: Mild right calf tenderness no edema. No cords. General Extremety ED: Yes tenderness; Negative for edema General Extremity: Negative for edema Neuro Sensorium / Orientation: alert, oriented to person, oriented to place and oriented to time; Negative for orientation impaired, confused, lethargic or stuporous Speech: speech normal Psych mental status grossly normal Appearance: Negative for unkempt Attitude: No agitated Mood & Affect: Negative for depressed Thought Process: normal thought process Skin no wounds General Skin Exam: Negative for jaundice or pallor Lesions: no lesions Rashes: no rashes MDM MDM MDM Narrative Medical decision making narrative: 61-year-old status post recent rotator cuff surgery. Has a history of factor V Leiden. Typically is on Coumadin. Had to stop it for the surgery and now she is on Lovenox and is restarted on her Coumadin. Complains of shortness of breath and hypoxia at home with wheezing. Cardiac work-up including D-dimer and she will receive albuterol and DuoNeb aerosol treatments for her wheezing. Also COVID test to be obtained. Repeat exam at 10 PM patient is doing better. She spontaneously converted into a sinus rhythm rate is in the 80s. She and I went over her test results. Given her new onset A. fib, hypoxia and pulmonary edema along with her elevated cardiac enzymes I feel she should be admitted for further evaluation and cardiac work-up. I discussed this with the hospitalist. Patient I discussed the plan she is comfortable with admission. Currently she is clinically stable as are her vital signs. Lab Data Attestation: I reviewed the patient's lab results. Lab results narrative: CBC shows a white count 8.6. H&H of 11 and 36. Rapid COVID test negative. Chemistries unremarkable gap of 4 normal BUN and creatinine. Glucose 92. High- sensitivity troponin is elevated at 122. PT/INR normal. Which means she is subtherapeutic but currently she is on Lovenox and are just starting to increase and restart her Coumadin. D-dimer is -0.39. Labs: Laboratory Results - last 24 hr 08/12/21 08/12/21 08/12/21 21:15 21:15 21:15 WBC 8.6 RBC 4.16 L Hgb 11.0 L Hct 36.7 L MCV 88.2 MCH 26.4 L MCHC 30.0 L RDW Std Deviation 48.7 H RDW Coeff of Naveen 15.2 H Plt Count 221 MPV 10.2 Immature Gran % (Auto) 1.200 H Neut % (Auto) 58.3 Lymph % (Auto) 27.5 Posey % (Auto) 7.1 Eos % (Auto) 5.4 H Baso % (Auto) 0.5 Absolute Neuts (auto) 5.0 Absolute Lymphs (auto) 2.38 Nucleated RBC % 0 PT 14.6 INR 1.2 D-Dimer Quant (PE/DVT) 0.39 Sodium 140 Potassium 3.7 Chloride 106 Carbon Dioxide 30.0 Anion Gap 4 L BUN 13 Creatinine 0.70 Estim Creat Clear Calc 77.87 Est GFR (MDRD) Af Amer 110 Est GFR (MDRD) Non-Af 91 BUN/Creatinine Ratio 18.6 Glucose 92 Calcium 8.4 L Troponin I High Sens 122 H* Radiography Chest X-Ray - ED: 1 View, Read by ED Physician and CHF Diagnostic Testing: Clinical Impression(s) from Imaging Studies Chest X-Ray 08/12/21 21:18 IMPRESSION: Nonacute portable x-ray examination of the chest. Right upper arm/axillary subcutaneous emphysema, unknown cause. Electronically Signed: Tomas Gonzalez MD (Brooks) at 21:41 EDT Reading Location ID and State: [address] [place] [address] , Service support , Chest x-ray, portable, single view interpreted by myself shows normal cardiac silhouette. There is vascular congestion consistent with pulmonary edema. Radiologist read the chest x-ray is negative. I disagree. I compared it to her prior chest x-ray and it looks like pulmonary edema. Is changed from the prior. Rhythm Strip Rhythm Strip: A-fib Rate: 115 Ectopy: None EKG Initial EKG: Attestation: I personally reviewed and interpreted this EKG as follows: Interpretation: Atrial Fibrillation Comments: Atrial fibrillation with RVR with a rate of 115. No acute signs of PR or ischemia. I do not believe the patient has any history of prior A. fib Discharge Plan Triage Chief Complaint: Shortness of Breath ED Provider: Cruz Rice Dx/Rx/DC Orders Clinical Impression: Acute dyspnea, Hypoxia, Atrial fibrillation with rapid ventricular response, Pulmonary edema, History of factor V Leiden mutation, History of deep vein thrombosis Prescriptions: No Action alprazolam [Xanax] 1 MG tablet 1 mg PO QHS methadone 10 MG tablet 10 mg PO Q8H oxycodone-acetaminophen 1 TABLET tablet 1 tab PO TID PRN PRN (Reason: Pain) atorvastatin 40 MG tablet 40 mg PO QHS prednisone 20 tablet See Taper PO DAILY Taper: Prednisone Taper 40 mg DAILY@0800 for 3 Days and 0 Hour 30 mg DAILY@0800 for 3 Days and 0 Hour 20 mg DAILY@0800 for 3 Days and 0 Hour 10 mg DAILY@0800 for 3 Days and 0 Hour Rx Instructions: TAPER sulfamethoxazole-trimethoprim 0 tablet 1 tab PO MOWEFR aspirin 81 MG Tab.Chew 81 mg PO DAILY@0800 lidocaine 1 PATCH patch 1 patch topical PRN PRN (Reason: Pain) mycophenolate mofetil 500 MG tablet 1,500 mg PO BID buspirone 7.5 MG tablet 7.5 mg PO DAILY sertraline 50 MG tablet 50 mg PO DAILY famotidine 20 MG tablet 20 mg PO BID Label Comments: Take 1 tablet by mouth twice daily. albuterol sulfate [ProAir HFA] 1 PUFF inhaler 2 puff inhalation Q4H PRN PRN (Reason: Sob &/Or Wheezing) Label Comments: TAKE 2 PUFFS BY MOUTH EVERY 4 HOURS NEEDED warfarin [Jantoven] 3 MG tablet 3 mg PO DAILY Qty: 0 0RF Rx Instructions: Take 4.5 mg nightly and recheck INR on Friday 04/07 Primary Care Provider: Sammi Rowley Referrals: Sammi Rowley MD [Primary Care Provider] - Disposition Disposition: Acute Care Hospital [facility]
--- NOTE | 2021-08-12 21:00 | EKG12_ITS ---
Test Reason : SOB Blood Pressure : / mmHG Vent. Rate : 115 BPM Atrial Rate : 214 BPM P-R Int : 000 ms QRS Dur : 086 ms QT Int : 336 ms P-R-T Axes : 000 019 060 degrees QTc Int : 464 ms Atrial fibrillation with premature ventricular or aberrantly conducted complexes Abnormal ECG Confirmed by ANDRE BRENNAN, LINDA ([id number]), medical editor VIRAJ MICHAUD ([id number]) on 08/14/2021 10:40:55 AM Referred By: Confirmed By:LINDA POWELL MD
[2021-08-12] MEDS: Albuterol 2.5 MG/3 ML VIAL.NEB. INHALATION (21:18)
[2021-08-12] MEDS: Ipratropium/Albuterol Sulfate 3 ML AMPUL.NEB INHALATION (21:18)
--- NOTE | 2021-08-12 21:18 | RAD_ITS ---
STUDY: X-RAY CHEST REASON FOR EXAM: Female, 61 years old. chest pain TECHNIQUE: AP COMPARISON: None. FINDINGS: Reticular lucency of the right axilla extending to the right upper arm. The lungs are clear and expanded. There is no demonstrated pleural abnormality. Normal size heart. Normal mediastinum and pricilla. Normal visualized pulmonary arteries. Normal visualized aortic arch and descending thoracic aorta. Normal visualized thoracic spine. Normal visualized ribs, clavicles, and shoulders. There is no demonstrated abnormality of the visualized soft tissue structures of the upper abdomen. RAD/Chest 1 View (Portable) IMPRESSION: Nonacute portable x-ray examination of the chest. Right upper arm/axillary subcutaneous emphysema, unknown cause. Electronically Signed: Tomas Gonzalez MD (Brooks) at 21:41 EDT ,
[2021-08-12 21:27] LABS: Absolute Lymphocyte Count 2.38 X10^3/uL (0.83-4.51); Basophil# 0.04 X10^3/uL; Basophil% 0.5 % (0-1); Eosinophil# 0.47 X10^3/uL; Eosinophils% 5.4 % (0-5); Hematocrit 36.7 % (37-47); Lymphocyte # 2.38 X10^3/ul (0.83-4.51); Lymphocyte % 27.5 % (19-41); Mean Corpuscular Hgb 26.4 pg (27.0-32.0); Mean Corpuscular Volume 88.2 fL (81-99); Mean Platelet Vol. 10.2 fl (6.2-12.0); Monocyte# 0.61 X10^3/uL; Monocyte% 7.1 % (0-10); NRBC Flagged by Analyzer 0 % (0-5); Neutrophil # 5.04 X10^3/uL (2.7-7.7); Neutrophil % 58.3 % (47-70); Platelet Count 221 K/mm3 (150-450); RBC Distribution Width CV 15.2 % (11.6-14.6); RBC Distribution Width SD 48.7 fl (35.1-43.9); Red Blood Count 4.16 M/mm3 (4.2-5.4); White Blood Count 8.6 K/mm3 (4.4-11.0)
[2021-08-12 21:36] LABS: D-Dimer Quantitative (DVT/PE) 0.39 FEU/ug/m (0.27-0.49)
[2021-08-12 21:50] LABS: Anion Gap 4 (5-15); BUN 13 mg/dL (7-18); BUN/Creat Ratio 18.6 RATIO (10-20); Calcium,Total 8.4 mg/dL (8.5-10.1); Chloride 106 mmol/L (98-107); EST Glomerular Filtration Rate 91 mL/min (>60); Est Glom Filt Rate - Afr Amer 110 mL/min (>60); Estimated Creatinine Clearance 77.87 ml/min; Glucose 92 mg/dL (74-106); Potassium 3.7 mmol/L (3.5-5.1); Sodium Level 140 mmol/L (136-145); Troponin-I HS 122 pg/mL (3.0-54.0)
[2021-08-12 21:51] LABS: International Normalized Ratio 1.2; Prothrombin Time (Protime)PT. 14.6 SECONDS (11.7-14.9)
[2021-08-12 22:18] VITALS: BP 114/61; PULSE 75; RESP 27; TEMP 38; O2SAT 94
--- NOTE | 2021-08-12 22:19 | ECHOCS_ITS ---
Reason For Study: ATRIAL FIB FLUTTER Procedure This was a 2D Doppler, Color Flow transthoracic echocardiogram. The study was technically difficult. Contrast injection was performed. Patient scanned in supine position. Exam performed portable in patient room. Left Ventricle Normal LV size. Left ventricular systolic function is normal. The estimated ejection fraction is 60 %. Normal diastology for age. No regional wall motion abnormalities noted. Right Ventricle Normal RV size. Normal systolic function. Atria Normal left atrium. Normal right atrium. Mitral Valve Normal mitral valve. Tricuspid Valve Normal tricuspid valve. Aortic Valve The aortic valve is not well visualized. Pulmonic Valve The pulmonic valve is not well visualized. Great Vessels Normal aortic root. The pulmonary artery is normal size. Normal inferior vena cava. Pericardium/Pleural No pericardial effusion. Medication Diluted definity 1ml given slow IV push to enhance endocardial definition. MMode/2D Measurements & Calculations LVIDd: 4.6 cm IVSd: 1.1 cm Ao root diam: 3.1 cm LVIDs: 2.0 cm LVPWd: 1.3 cm FS: 55.8 % LAV(MOD-sp4): 49.6 ml LVAd ap4: 38.3 cm2 SV(MOD-sp4): 84.6 ml LVLd ap4: 9.2 cm EDV(MOD-sp4): 132.8 ml EDV(sp4-el): 134.8 ml LVAs ap4: 20.1 cm2 LVLs ap4: 7.2 cm ESV(MOD-sp4): 48.2 ml ESV(sp4-el): 47.6 ml EF(MOD-sp4): 63.7 % EF(sp4-el): 64.7 % SV(sp4-el): 87.3 ml LA A4 area: 19.8 cm2 LA dimension(2D): 3.7 cm RA A4 area: 20.5 cm2 Doppler Measurements & Calculations MV E max yvan: 103.2 cm/sec Lat Peak E' Yvan: 11.4 cm/sec Med Peak E' Yvan: 8.4 cm/sec MV A max yvan: 64.9 cm/sec E/E' lat: 9.0 E/E' med: 12.3 MV E/A: 1.6 Ao V2 max: 186.8 cm/sec LV V1 max: 118.6 cm/sec PA V2 max: 111.7 cm/sec Ao max P.0 mmHg LV V1 max P.6 mmHg ECHO/Echo Complete W/ Contrast Interpretation Summary Normal LV size. Left ventricular systolic function is normal. The estimated ejection fraction is 60 %. Contrast injection was performed. Ordering Physician: Macey Miller Performed By: Kayleen Griffith [facility]
[2021-08-12 22:37] LABS: BNP,B-Type NATRIURETIC PEPTIDE 108.2 pg/mL (0-100)
--- NOTE | 2021-08-12 22:54 | PCM.HP.STD ---
[facility] - General General Date of Admission: 08/12/21 Date of Service: 08/12/21 Chief Complaint: Shortness of breath HPI Narrative STEPHANIE KNIGHT, is a 61 F who presented to the emergency department was [facility] on 08/12/2021 with a chief complaint of shortness of breath. She had a recent right rotator cuff surgery done on Saturday of this past week by Dr. Rodriguez at [facility] and [place]. She evidently had some postoperative wheezing and needed oxygen with breathing treatments and she was kept overnight. She was discharged on to home but has had progressively worsening shortness of breath of the last couple days with wheezing. She denies any fever or chills, upper respiratory symptoms and has no chest pain except with deep breathing. She has no hemoptysis or leg swelling. She does have a history of factor V Leiden and DVT for which she takes Coumadin. Her Coumadin was recently held for her surgery but she has been on therapeutic Lovenox immediately postoperative while she is bridging back onto her Coumadin. She denies any lower extremity swelling, nausea, vomiting, diarrhea, constipation and states that her and daughter have been ill recently but she has not had any symptoms similar to what they were having. Her daughter indicates that she has had periods of shortness of breath at home that come and go quite easily but this event lasted longer than previous. In the emergency department she was noted to be in A. fib with RVR but spontaneously converted to normal sinus rhythm at which time her breathing did improve. Vital signs on presentation showed a temperature of 99.5, heart rate on her EKG was 115 beats per minutes, blood pressure was 163/73, respiratory rate was anywhere from 16-27 and oxygen saturation were 91% on room air upon presentation however family reported she was 81 on room air at home when they checked her oxygen saturation with her home pulse oximetry. Her CBC shows a mild anemia with a hemoglobin of 11 but is otherwise fairly unremarkable. There is no left shift. She is a mild eosinophilia at 5.4%. INR was subtherapeutic at 1.2. Given her shortness of breath and intermittent pleuritic chest pain a D-dimer was obtained and was found to be 0.39. Her chemistry panel was unremarkable. Serum troponin was 122 and her BNP was 108.2. Her chest x-ray was read out as normal however does appear to be consistent with some volume overload. I reviewed previous CTs of her chest which showed some apical small blebbing and architectural abnormalities likely related to her previous tobacco abuse. Her EKG was in atrial fibrillation with a rate of [address]-T wave changes consistent with ischemia. She spontaneously converted out of A. fib in the emergency department however I do suspect based on her history from her and talking to her daughter that she has had intermittent atrial fibrillation in the past and she likely has paroxysmal atrial fibrillation. Work-up is in progress, patient is fortunately already anticoagulated and on a beta-brenda. [facility] Medical History Acute ischemic stroke Anxiety Chronic back pain Factor V deficiency History of deep vein thrombosis Hyperlipemia Reflex sympathetic dystrophy Home Medications methadone 10 mg tablet 10 mg PO Q8H pain 09/19/17 [History Last Taken 04/02/18] oxycodone-acetaminophen 5 mg-325 mg tablet 1 tab PO TID PRN PRN Pain 09/19/17 [History Last Taken 08/12/21] atorvastatin 40 mg tablet 40 mg PO QHS cholesterol 02/11/18 [History Last Taken 08/12/21] aspirin 81 mg chewable tablet 81 mg PO DAILY@0800 heart health 02/22/18 [History Last Taken 08/12/21] albuterol sulfate 90 mcg/actuation aerosol inhaler (ProAir HFA) 2 puff inhalation Q4H PRN PRN Sob &/Or Wheezing 04/02/18 [History Last Taken Unknown] buspirone 7.5 mg tablet 7.5 mg PO DAILY anxiety 04/02/18 [History Last Taken 04/01/18] sertraline 50 mg tablet 50 mg PO DAILY depression 04/02/18 [History Last Taken 08/12/21] ascorbic acid (vitamin C) 1,000 mg tablet 1,000 mg PO QHS supplement 08/12/21 [History Last Taken 08/12/21] carvedilol 12.5 mg tablet 12.5 mg PO BID blood pressure 08/12/21 [History Last Taken 08/11/21] cholecalciferol (vitamin D3) 25 mcg (1,000 unit) capsule 1 unit PO QHS supplement 08/12/21 [History Last Taken 08/12/21] cyclobenzaprine 10 mg tablet 10 mg PO TID muscle relaxer 08/12/21 [History Last Taken 08/12/21] enoxaparin 100 mg/mL subcutaneous syringe 100 mg subcut Q12H blood thinner 08/12/21 [History Last Taken 08/12/21] furosemide 20 mg tablet 20 mg PO BID PRN swelling 08/12/21 [History Last Taken Unknown] mycophenolate mofetil 500 mg tablet 500 mg PO BID vasculitis 08/12/21 [History Last Taken 08/12/21] ondansetron HCl 4 mg tablet 4 tab PO QHS nausea 08/12/21 [History Last Taken 08/12/21] pantoprazole 20 mg tablet,delayed release 1 tab PO DAILY GERD 08/12/21 [History Last Taken 08/12/21] warfarin 3 mg tablet (Febmaileven) 7.5 mg PO DAILY blood thinner 08/12/21 [History Last Taken 08/12/21] Allergy/AdvReac Type Severity Reaction Status Date / Time acetaminophen AdvReac Nausea Verified 04/02/18 08:51 [From Darvocet-N] hydrocodone [From Vicodin] AdvReac Other Verified 04/02/18 08:51 pentazocine [From Talwin] AdvReac Other Verified 04/02/18 08:51 propoxyphene AdvReac Nausea Verified 04/02/18 08:51 [From Darvocet-N] PAPER TAPE AdvReac Other Uncoded 04/02/18 08:51 STERI-STRIPS AdvReac Other Uncoded 04/02/18 08:51 Family History (Updated 08/12/21 @ 23:[address] Macey Miller DO) Other Factor V Leiden Hypertension Surgical History H/O rotator cuff surgery Social History (Updated 08/12/21 @ 23:[address] Macey Miller DO) household members: family housing: house Smoking Status: Former smoker alcohol intake: current alcohol intake frequency: a few times a month substance use type: does not use ROS Constitutional Constitutional: Denies anorexia, change in weight, chills, fatigue, fever(s), malaise, night sweats, weakness or other Eyes Eyes: Denies blurry vision, change in eye color, change in vision, discharge from eye(s), double vision, erythema, eye pain, loss of vision or other ENT HEENT: Denies abnormal hearing, dysphagia, ear pain, epistaxis, headache(s), hearing loss, nasal congestion, nasal discharge, post nasal drip, sinus pressure, sore throat or other Cardiovascular Cardiovascular: Reports dyspnea on exertion and rapid heart rate; Denies chest pain, claudication, edema, lightheadedness, orthopnea, palpitations, paroxysmal nocturnal dyspnea, syncope or other Respiratory/Chest Respiratory/Chest: Reports dyspnea, shortness of breath at rest, shortness of breath with exertion and wheezing; Denies cough, excessive phlegm production, hemoptysis, productive cough or other Gastrointestinal Gastrointestinal: Denies abdominal pain, coffee ground emesis, constipation, diarrhea, dyspepsia, hematemesis, hematochezia, loose stools, melena, nausea, vomiting or other Genitourinary Genitourinary: Denies burning urination, difficulty urinating, dysuria, hematuria, nocturia, urinary frequency, urinary hesitancy, urinary incontinence, urinary urgency or other Musculoskeletal Musculoskeletal: Reports back pain, joint pain, joint stiffness and joint swelling; Denies arthralgias, myalgias, neck pain or other Neurologic Neurologic: Denies abnormal gait, abnormal speech, confusion, disequilibrium, dizziness, focal weakness, headache(s), numbness, paresthesias, seizure-like activity, seizures, syncope, tingling, tremor(s) or other Psychiatric Psychiatric: Reports depression; Denies anxiety, homicidal ideation, suicidal ideation or other Endocrine Endocrinology: Denies change in body appearance, cold intolerance, excessive sweating, heat intolerance, polydipsia, polyuria or other Hematologic/Lymphatic Hematologic/Lymphatic: Denies anemia, easy bleeding, easy bruising, lymphadenopathy or other Allergic/Immunologic Allergic/Immunologic: Denies rhinitis, hives, eczemia, asthma or other Vital Signs Vital Signs Vital Signs: 08/12/21 20:37 08/12/21 20:51 08/12/21 20:51 Temperature 99.5 F H 97.8 F Temperature Source Temporal Oral Pulse Rate 63 69 Respiratory Rate 16 20 H Respiratory Effort Respiratory Depth Blood Pressure 163/73 H 163/85 H Blood Pressure Mean 103 111 Pulse Ox 91 93 91 Oxygen Delivery Method Room Air Room Air Room Air Oxygen Flow Rate (L/min) Fraction of Inspired Oxygen (FIO2) 08/12/21 20:51 08/12/21 22:18 Temperature 100.4 F H Temperature Source Oral Pulse Rate 75 Respiratory Rate 27 H Respiratory Effort Short of Breath Respiratory Depth Shallow Blood Pressure 114/61 Blood Pressure Mean 78 Pulse Ox 94 Oxygen Delivery Method Nasal Cannula Nasal Cannula Oxygen Flow Rate (L/min) 2 2 Fraction of Inspired Oxygen (FIO2) 2 Weight Weight: 114.85 kg Body Mass Index (BMI) 42.1 Physical Exam Const alert, oriented x3, no apparent distress, healthy appearing and well nourished Constitutional Narrative: Morbidly obese white female sitting up in the bed, daughter at bedside, nursing at bedside, patient appears comfortable and on dyspneic at this time General Appearance: cooperative HEENT normocephalic, head/scalp atraumatic, hearing grossly normal bilaterally and moist oral mucous membranes HEENT Narrative: Mallampati 3, no thrush, dentition is fair for age Eyes PERRL, EOMs intact bilaterally and conjunctivae normal Eyes Narrative: No scleral icterus Neck no lymphadenopathy, supple, no JVD and no carotid bruits Neck Narrative: Trachea midline, no thyroid enlargement Resp normal respiratory effort, no retractions and no use of accessory muscles Resp Narrative: No current signs of respiratory distress, few scattered crackles more notable at the bases, no current wheezing Auscultation: crackles; Negative for rhonchi or wheezes Cardio regular rate, regular rhythm, S1 normal heart sound, S2 normal heart sound, no murmurs, no rub, no gallops, no clicks and no JVD GI normal to inspection, nondistended, normoactive bowel sounds, soft to palpation, non-tender and non-distended Extremity no clubbing, cyanosis or edema Extremity Narrative: Right upper extremity in postoperative sling Neuro oriented x3, CN's II-XII intact bilaterally and no focal motor deficits Neuro Narrative: Moves all extremities symmetrically except right upper extremity as this is impaired secondary to recent rotator cuff surgery Sensorium / Orientation: awake and alert Psych affect normal Psych Narrative: Very pleasant and appropriate Results Lab / Micro Data Attestation: I reviewed the patient's lab results. Result Diagrams: 08/12/21 21:15 08/12/21 21:15 Labs: Laboratory Results - last 24 hr 08/12/21 21:15: WBC 8.6, RBC 4.16 L, Hgb 11.0 L, Hct 36.7 L, MCV 88.2, MCH 26.4 L, MCHC 30.0 L, RDW Std Deviation 48.7 H, RDW Coeff of Naveen 15.2 H, Plt Count 221, MPV 10.2, Immature Gran % (Auto) 1.200 H, Neut % (Auto) 58.3, Lymph % (Auto) 27.5, Swisher % (Auto) 7.1, Eos % (Auto) 5.4 H, Baso % (Auto) 0.5, Absolute Neuts (auto) 5.0, Absolute Lymphs (auto) 2.38, Nucleated RBC % 0 08/12/21 21:15: PT 14.6, INR 1.2, D-Dimer Quant (PE/DVT) 0.39 08/12/21 21:15: Sodium 140, Potassium 3.7, Chloride 106, Carbon Dioxide 30.0, Anion Gap 4 L, BUN 13, Creatinine 0.70, Estim Creat Clear Calc 77.87, Est GFR (MDRD) Af Amer 110, Est GFR (MDRD) Non-Af 91, BUN/Creatinine Ratio 18.6, Glucose 92, Calcium 8.4 L, Troponin I High Sens 122 H* 08/12/21 21:15: B-Natriuretic Peptide 108.2 H Micro: Microbiology 08/12/21 21:00 Nasal Secretion SARS-CoV-2 Antigen (Rapid) - Final Rhythm Strip Rhythm Strip: A-fib Rate: 115 Ectopy: None Radiology Impression Chest X-Ray 08/12/21 21:18 IMPRESSION: Nonacute portable x-ray examination of the chest. Right upper arm/axillary subcutaneous emphysema, unknown cause. Electronically Signed: Tomas Gonzalez MD ([place]) at 21:41 EDT , Assessment & Plan Assessment/Plan (1) Atrial fibrillation with rapid ventricular response: (2) Pulmonary edema: (3) Acute respiratory failure with hypoxia: (4) Fever: (5) Elevated troponin: PLAN: Plan Acute hypoxic respiratory failure -Patient was tachypneic, wheezing, and tachycardic with oxygen saturations at 81% on room air at home prior to arrival to the emergency department -Suspect this was related to atrial fibrillation as her respiratory status improved when she converted normal sinus rhythm -Wheezing has since resolved -Patient initially required 3 L nasal cannula improve oxygen saturations to greater than 92% but we have subsequently been able to wean her to 1 L -BNP is mildly elevated 108 -Suspect related to atrial fibrillation -Check echocardiogram--> will not be able to be done until Saturday secondary staffing -Lasix IV push x1 dose -Wean oxygen as able -Will use as needed nebulizers at this time given her atrial fibrillation -COVID-negative -Respiratory panel pending New onset atrial fibrillation -It sounds from discussing things with her daughter that she has had issues like this in the past that resolved independently -Given this history I question whether or not she has some paroxysmal atrial fibrillation -She is chronically anticoagulated secondary to factor V Leiden and history of DVTs -We will continue carvedilol -Check TSH -Monitor on telemetry -Has converted back to normal sinus rhythm -Check echocardiogram -Given how symptomatic she seems to be in atrial fibrillation and with a history of her daughter gives us with regards to possible questioning paroxysmal atrial fibrillation it sounds as if the patient may benefit from antiarrhythmic therapy -We will likely need outpatient follow-up with cardiology to further assess Elevated troponin -We will cycle cardiac enzymes -Check echocardiogram -Suspect this is related to acute onset atrial fibrillation which has since resolved -Trending down of troponin since resolution we will support this Fever -No signs of infectious process other than fever -Could be postoperative in nature -Fevers very low-grade and could be related to recent surgery -Encourage incentive spirometry -White count is normal -Repeat CBC in a.m. 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 twice daily -Trend blood pressures Recent right rotator cuff repair -Done by Dr. Rodriguez -Maintain sling -No need for therapy at this time Morbid obesity -BMI is 42.1 -Recommend weight loss -Complicates treatment, prognosis, outcomes History of tobacco abuse -Patient does have structural changes on previous CTs that are suggestive of COPD however she has no formal diagnosis -We will give aerosols scheduled given her shortness of breath -Currently doubt COPD exacerbation as etiology but will monitor for clinical changes DVT prophylaxis -Full dose Lovenox/bridging to Coumadin CODE STATUS -Full code Charges/Coding Visit Charges Inpatient E&M: 23339 Init Hosp L3
[2021-08-12 23:00] VITALS: BP 156/72; PULSE 88; RESP 14; O2SAT 95
[2021-08-12 23:26] VITALS: BMI 41.9
[2021-08-12 23:32] VITALS: BP 137/65; PULSE 69; RESP 18; TEMP 37; O2SAT 93
[2021-08-12 23:40] VITALS: PULSE 73
[2021-08-12] MEDS: Furosemide 40 MG/4 ML Vial IV (23:40)
[2021-08-12] MEDS: Ondansetron 4 MG/2 ML Vial IV (23:41)
[2021-08-12] MEDS: oxyCODONE 5 MG Tablet PO (23:42)
[2021-08-13] VITALS (14 sets, daily range): BP systolic 125–137; BP diastolic 62–83; PULSE 57–141; RESP 14–18; TEMP 36.8–37.8; O2SAT 88–97
[2021-08-13 00:21] LABS: Troponin-I HS 133 pg/mL (3.0-54.0)
[2021-08-13 03:42] LABS: Absolute Lymphocyte Count 2.96 X10^3/uL (0.83-4.51); Absolute Neutrophil Count 5.8 X10^3/uL (2.0-7.7); Basophil# 0.03 X10^3/uL; Basophil% 0.3 % (0-1); Eosinophil# 0.54 X10^3/uL; Eosinophils% 5.3 % (0-5); Hematocrit 37.2 % (37-47); Hemoglobin 11.2 g/dL (12.0-15.0); Lymphocyte # 2.96 X10^3/ul (0.83-4.51); Mean Corp Hgb Conc 30.1 g/dL (32-36); Mean Corpuscular Hgb 26.5 pg (27.0-32.0); Mean Corpuscular Volume 88.2 fL (81-99); Mean Platelet Vol. 10.3 fl (6.2-12.0); Monocyte# 0.72 X10^3/uL; Monocyte% 7.1 % (0-10); NRBC Flagged by Analyzer 0 % (0-5); Neutrophil # 5.84 X10^3/uL (2.7-7.7); Neutrophil % 57.1 % (47-70); Platelet Count 209 K/mm3 (150-450); RBC Distribution Width CV 15.1 % (11.6-14.6); RBC Distribution Width SD 48.6 fl (35.1-43.9); Red Blood Count 4.22 M/mm3 (4.2-5.4); White Blood Count 10.2 K/mm3 (4.4-11.0)
[2021-08-13 03:50] LABS: International Normalized Ratio 1.2; Prothrombin Time (Protime)PT. 14.8 SECONDS (11.7-14.9)
[2021-08-13 04:11] LABS: Anion Gap 9 (5-15); BUN 13 mg/dL (7-18); BUN/Creat Ratio 19.4 RATIO (10-20); Calcium,Total 8.2 mg/dL (8.5-10.1); Chloride 100 mmol/L (98-107); Creatinine, Serum 0.67 mg/dL (0.55-1.02); EST Glomerular Filtration Rate 95 mL/min (>60); Est Glom Filt Rate - Afr Amer 116 mL/min (>60); Estimated Creatinine Clearance 81.35 ml/min; Glucose 101 mg/dL (74-106); Magnesium 1.8 mg/dL (1.6-2.6); Phosphorus 3.5 mg/dL (2.5-4.9); Potassium 3.2 mmol/L (3.5-5.1); Sodium Level 138 mmol/L (136-145); Thyroid Stim Hormone (TSH) 1.11 uIU/mL (0.358-3.74)
[2021-08-13 04:15] LABS: Troponin-I HS 147 pg/mL (3.0-54.0)
[2021-08-13] MEDS: Potassium Chloride Oral Tablet 20 MEQ 40 MEQ PO ×2 (06:50→17:27)
[2021-08-13] MEDS: oxyCODONE 5 MG Tablet PO ×3 (09:02→21:39)
[2021-08-13] MEDS: Pantoprazole Sodium 20 MG Tablet PO (09:05)
[2021-08-13] MEDS: Aspirin 81 MG TAB.CHEW PO (09:06)
[2021-08-13] MEDS: Carvedilol 12.5 MG Tablet PO (09:06)
[2021-08-13] MEDS: Sertraline 50 MG Tablet PO (09:07)
[2021-08-13] MEDS: Mycophenolate Mofetil 250 MG Capsule 500 MG PO ×2 (09:08→21:40)
[2021-08-13] MEDS: busPIRone 5 MG Tablet 7.5 MG PO (09:09)
--- NOTE | 2021-08-13 11:13 | PN.HOSP_ITS ---
Subjective Subjective Follow-up on shortness of breath/A. fib with RVR: Patient was seen and examined. She feels improved. She was hypoxic requiring 2 L of oxygen earlier on. Her SPO2 was 88%. She however feels improved. Heart rate is controlled, in normal sinus rhythm. He denied any chest pain. She complains of pain in her right shoulder. Objective Data Objective Data Vital Signs: Vital Signs Temp Pulse Resp BP Pulse Ox FiO2 100.1 F H 66 14 125/83 H 88 2 08/13/21 08:58 08/13/21 08:58 08/13/21 08:58 08/13/21 08:58 08/13/21 09:01 08/12/21 20:51 Oxygen Flow Rate (L/min) 2 Oxygen Delivery Method Room Air Weight: 114.4 kg Body Mass Index (BMI) 41.9 Intake & Output: Intake and Output for Last 24 Hours 08/11/21 08/12/21 08/13/21 23:59 23:59 23:59 Intake Total 240 / 240 Output Total 1700 / 1700 Balance -1460 / -1460 Lab / Micro Data Result Diagrams: 08/13/21 03:33 08/13/21 03:33 Labs: Laboratory Results - last 24 hr 08/12/21 11:48: Troponin I High Sens 133 H* 08/12/21 21:15: WBC 8.6, RBC 4.16 L, Hgb 11.0 L, Hct 36.7 L, MCV 88.2, MCH 26.4 L, MCHC 30.0 L, RDW Std Deviation 48.7 H, RDW Coeff of Naveen 15.2 H, Plt Count 221, MPV 10.2, Immature Gran % (Auto) 1.200 H, Neut % (Auto) 58.3, Lymph % (Auto) 27.5, Maverick % (Auto) 7.1, Eos % (Auto) 5.4 H, Baso % (Auto) 0.5, Absolute Neuts (auto) 5.0, Absolute Lymphs (auto) 2.38, Nucleated RBC % 0 08/12/21 21:15: PT 14.6, INR 1.2, D-Dimer Quant (PE/DVT) 0.39 08/12/21 21:15: Sodium 140, Potassium 3.7, Chloride 106, Carbon Dioxide 30.0, Anion Gap 4 L, BUN 13, Creatinine 0.70, Estim Creat Clear Calc 77.87, Est GFR (MDRD) Af Amer 110, Est GFR (MDRD) Non-Af 91, BUN/Creatinine Ratio 18.6, Glucose 92, Calcium 8.4 L, Troponin I High Sens 122 H* 08/12/21 21:15: B-Natriuretic Peptide 108.2 H 08/13/21 03:33: WBC 10.2, RBC 4.22, Hgb 11.2 L, Hct 37.2, MCV 88.2, MCH 26.5 L, MCHC 30.1 L, RDW Std Deviation 48.6 H, RDW Coeff of Naveen 15.1 H, Plt Count 209, MPV 10.3, Immature Gran % (Auto) 1.200 H, Neut % (Auto) 57.1, Lymph % (Auto) 29.0, Maverick % (Auto) 7.1, Eos % (Auto) 5.3 H, Baso % (Auto) 0.3, Absolute Neuts (auto) 5.8, Absolute Lymphs (auto) 2.96, Nucleated RBC % 0 08/13/21 03:33: PT 14.8, INR 1.2 08/13/21 03:33: Sodium 138, Potassium 3.2 L, Chloride 100, Carbon Dioxide 29.0, Anion Gap 9, BUN 13, Creatinine 0.67, Estim Creat Clear Calc 81.35, Est GFR (MDRD) Af Amer 116, Est GFR (MDRD) Non-Af 95, BUN/Creatinine Ratio 19.4, Glucose 101, Calcium 8.2 L, Phosphorus 3.5, Magnesium 1.8, TSH 1.11 08/13/21 03:33: Troponin I High Sens 147 H* Micro: Microbiology 08/12/21 22:40 Mucosa - Nasopharyngeal Respiratory Panel (PCR) - Final 08/12/21 21:00 Nasal Secretion SARS-CoV-2 Antigen (Rapid) - Final Radiography Diagnostic Testing: Radiology Impression Chest X-Ray 08/12/21 21:18 IMPRESSION: Nonacute portable x-ray examination of the chest. Right upper arm/axillary subcutaneous emphysema, unknown cause. Electronically Signed: Tomas Gonzalez MD ([place]) at 21:41 EDT , Rhythm Strip Rhythm Strip: A-fib Rate: 115 Ectopy: None Physical Exam Narrative Physical exam: General: Alert, Oriented x3, Cooperative, morbidly obese, HEENT: Atraumatic Oral: Moist Mucosa Neck: Supple Lungs: Diminished to auscultation at the lung bases Cardiovascular: HS I+II, regular, no murmurs Abdomen: Bowel Sounds Present, Soft, Non Tender Extremities: No edema Assessment & Plan Assessment/Plan (1) Elevated troponin: (2) Acute respiratory failure with hypoxia: (3) Atrial fibrillation with rapid ventricular response: PLAN: Plan 1. Acute hypoxic respiratory failure, improved, patient currently on 2 L of oxygen Patient received a dose of Lasix Rapid COVID-19 test as well as respiratory panel are unremarkable We will continue with breathing treatments as needed Continue to wean off oxygen 2. New onset A. fib, now in normal sinus rhythm 2D echo is pending, cardiology consulted Continue on therapeutic Lovenox, call leg 3. Elevated troponin likely secondary to #2, 2D echo pending Cardiology consult 4. Factor V Leyden with history of DVT Coumadin is subtherapeutic at 1.2, continue on Coumadin with therapeutic Lovenox bridging 5. 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 Rest of chronic medical conditions including CAD, chronic pain syndrome, hypertension, recent right rotator cuff repair, morbid obesity remained stable Home medication reviewed 7. DVT prophylaxis, on therapeutic Lovenox bridging Charges/Coding Visit Charges Inpatient E&M: 94673 [facility] Hosp L2
[2021-08-13] MEDS: Enoxaparin 120 MG/0.8 ML Syringe 115 MG SC ×2 (12:20→21:41)
[2021-08-13] MEDS: guaiFENesin 1,200 MG Tablet 1200 MG PO ×2 (15:03→21:40)
[2021-08-13] MEDS: Ondansetron 4 MG/2 ML Vial IV (15:13)
[2021-08-13] MEDS: 0.9% Saline Lock 10 ML Syringe IV (15:13)
--- NOTE | 2021-08-13 17:12 | CON.PCM.CA_ITS ---
Assessment & Plan Assessment/Plan (1) Acute respiratory failure with hypoxia: (2) Atrial fibrillation with rapid ventricular response: (3) Fever: (4) Elevated troponin: (5) Hypercoagulable state: (6) Obesity: (7) High risk medication use: (8) Acute diastolic congestive heart failure, NYHA class 4: PLAN: Assessment: 1. Hypercoagulable status on high risk medication-chronic anticoagulation with warfarin, currently being bridged with Lovenox and warfarin. 2. Paroxysmal atrial fibrillation with rapid ventricular rate-currently in sinus rhythm 3. Acute class IV diastolic heart failure most likely precipitated by postoperative atelectasis, atrial fibrillation with rapid ventricular rate, and high likelihood of underlying obstructive sleep apnea 4. Hypertension-suboptimally controlled 5. Iatrogenic hypokalemia 6. [id number] score 2.0 7. 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 8. Preserved LV systolic function and negative perfusion study 2019 no evidence of interatrial shunting at that time with agitated saline contrast Recommendations: 1. Keep potassium greater than 4 and magnesium greater than 2 2. Aldactone 50 mg p.o. daily for hypertension, will also help keep her potassium normal 3. Switch her from carvedilol to metoprolol tartrate 50 mg p.o. twice daily 4. Nocturnal pulse oximetry, additional work-up as needed and treatment for obstructive sleep apnea. 5. I agree with the admitting physician that patient probably has been having paroxysmal atrial fibrillation. However at this time I would titrate her medications, and follow closely for recurrence of atrial fibrillation. Echocar diogram will also shed light into the likelihood for recurrence of her atrial fibrillation. 6. We can always add antiarrhythmic therapy if it turns out that she has frequent bouts of atrial fibrillation outside of the stress of her recent surgery and possible hypoxia associated with it. 7. Additional recommendations to be based on clinical course and findings 8. The pathophysiology of atrial fibrillation the rationale for anticoagulation and the possible need for antiarrhythmic therapy were discussed with patient and she expressed understanding. 9. Weight loss-this needs to be addressed on an ongoing basis. We started the discussion today 10. Patient will need cardiology follow-up upon discharge. 11. Potential discharge tomorrow based on clinical course. Thank you for allowing us to participate in patient's care, please do not hesitate to call if further questions arise, Sincerely, Dee Hardy MD [facility] HPI Consult Data Date of Consult: 08/13/21 HPI Narrative Reason for Consultation: SOB,PAF HPI Narrative: STEPHANIE KNIGHT, is a 61 F who presents with worsening shortness of breath audible wheezing, over the past 3 to 4 days, particularly worse today on presentation. Denies chest pressure tightness or heaviness. Denied fever chills or cough, but she did have a low-grade temperature here. Had right rotator cuff surgery on 08/10/2021, had postoperative wheezing and shortness of breath. Ex-smoker. In the emergency room she was noted to be in atrial fibrillation with ventricular rate around 120 bpm. EKG on the floor also shows atrial fibrillation. She subsequently converted to sinus rhythm. She does not report palpitations. She remains on high risk medication warfarin, currently she is getting a Lovenox bridge when warfarin was interrupted for her surgery. She has hypercoagulable status. Her prior cardiac work-up has included a Lexiscan Myoview in March 2018 that was normal, and an echocardiogram at that time was reported to show preserved LV systolic function left atrial diameter of 3.5 cm LVEF 65% no interatrial shunting with agitated saline contrast, RVSP could not be estimated because there was no appreciable tricuspid regurgitation. 2018 she had an acute ischemic infarction right frontal parietal lobe, with mild subacute hemorrhagic transformation. She was seen by neurology at that time. Carotid duplex was normal. The information I gather from talking to the patient is that vasculitis was felt to be the reason for her stroke. She has been on warfarin since then. She has a history of prior DVT. Her D-dimer on admission is negative and her troponin is minimally elevated. She feels significantly improved with the diuretics she received. She also received aerosols. She denies headache or dizziness, presyncope or syncope, or bleeding diathesis. She does give history suggestive of obstructive sleep apnea-excessive snoring, unrefreshed sleep, daytime sleepiness. Her [id number] score is 2-female and hypertension. [facility] Medical History Acute ischemic stroke Anxiety Chronic back pain Factor V deficiency History of deep vein thrombosis Hyperlipemia Reflex sympathetic dystrophy Home Medications methadone 10 mg tablet 10 mg PO Q8H pain 09/19/17 [History Last Taken 04/02/18] oxycodone-acetaminophen 5 mg-325 mg tablet 1 tab PO TID PRN PRN Pain 09/19/17 [History Last Taken 08/12/21] atorvastatin 40 mg tablet 40 mg PO QHS cholesterol 02/11/18 [History Last Taken 08/12/21] aspirin 81 mg chewable tablet 81 mg PO DAILY@0800 heart health 02/22/18 [History Last Taken 08/12/21] albuterol sulfate 90 mcg/actuation aerosol inhaler (ProAir HFA) 2 puff inhalation Q4H PRN PRN Sob &/Or Wheezing 04/02/18 [History Last Taken Unknown] buspirone 7.5 mg tablet 7.5 mg PO DAILY anxiety 04/02/18 [History Last Taken 04/01/18] sertraline 50 mg tablet 50 mg PO DAILY depression 04/02/18 [History Last Taken 08/12/21] ascorbic acid (vitamin C) 1,000 mg tablet 1,000 mg PO QHS supplement 08/12/21 [History Last Taken 08/12/21] carvedilol 12.5 mg tablet 12.5 mg PO BID blood pressure 08/12/21 [History Last Taken 08/11/21] cholecalciferol (vitamin D3) 25 mcg (1,000 unit) capsule 1 unit PO QHS supplement 08/12/21 [History Last Taken 08/12/21] cyclobenzaprine 10 mg tablet 10 mg PO TID muscle relaxer 08/12/21 [History Last Taken 08/12/21] enoxaparin 100 mg/mL subcutaneous syringe 100 mg subcut Q12H blood thinner 08/12/21 [History Last Taken 08/12/21] furosemide 20 mg tablet 20 mg PO BID PRN swelling 08/12/21 [History Last Taken Unknown] mycophenolate mofetil 500 mg tablet 500 mg PO BID vasculitis 08/12/21 [History Last Taken 08/12/21] ondansetron HCl 4 mg tablet 4 tab PO QHS nausea 08/12/21 [History Last Taken 08/12/21] pantoprazole 20 mg tablet,delayed release 1 tab PO DAILY GERD 08/12/21 [History Last Taken 08/12/21] warfarin 3 mg tablet (Jantoven) 7.5 mg PO DAILY blood thinner 08/12/21 [History Last Taken 08/12/21] Allergy/AdvReac Type Severity Reaction Status Date / Time hydrocodone [From Vicodin] AdvReac Other Verified 04/02/18 08:51 pentazocine [From Talwin] AdvReac Other Verified 04/02/18 08:51 propoxyphene AdvReac Nausea Verified 04/02/18 08:51 [From Darvocet-N] PAPER TAPE AdvReac Other Uncoded 04/02/18 08:51 STERI-STRIPS AdvReac Other Uncoded 04/02/18 08:51 Family History (Updated 08/12/21 @ 23:[address] Macey Miller, ) Other Factor V Leiden Hypertension Surgical History H/O rotator cuff surgery Social History (Updated 08/12/21 @ 23:[address] Macey Miller DO) household members: family housing: house Smoking Status: Former smoker alcohol intake: current alcohol intake frequency: a few times a month substance use type: does not use ROS ROS Narrative 12 point review of systems was obtained, and is negative except as noted in HPI Physical Exam Narrative Patient is alert oriented x3 not in any acute distress. She is sitting with her head propped up. I appreciate no jugular venous distention no carotid bruit or facial asymmetry. Right arm is immobilized as a result of recent shoulder surgery breath sounds are very distant I hear no crepitations or rhonchi heart sounds are regular distant no murmur rub or gallop abdomen is obese nontender no palpable masses or bruit extremities show no edema distal pulses are palpable and symmetric neurologically she has no gross cranial nerve deficits can move all extremities except to the immobilized right upper extremity she can ambulate without assistance she is grossly nonfocal. Musculoskeletal-evidence of recent right shoulder surgery. Risk Stratification Risk Stratification Applicable: Yes Age >/= 65: No >/= 3 CAD Risk Factors (HTN, HLD, DM, family hx of CAD, or current smoker): No Aspirin Use in the Past 7 Days: No Severe Angina (>/= episodes in 24 hours): No EKG ST Changes >/= 0.5mm: No Positive Cardiac Marker: Yes EVERETTE Risk Stratification Score: 1 EVERETTE % Risk: 5% Risk Objective Data Vital Signs: Vital Signs Temp Pulse Resp BP Pulse Ox FiO2 98.3 F 57 L 14 130/73 H 92 2 08/13/21 14:59 08/13/21 16:14 08/13/21 14:59 08/13/21 14:59 08/13/21 14:59 08/12/21 20:51 Oxygen Flow Rate (L/min) 2 Oxygen Delivery Method Room Air Weight: 252 lb 3.341 oz Body Mass Index (BMI) 41.9 Intake & Output: Intake and Output for Last 24 Hours 08/11/21 08/12/21 08/13/21 23:59 23:59 23:59 Intake Total 964 / 964 Output Total 1700 / 1700 Balance -736 / -736 Lab / Micro Data Result Diagrams: 08/13/21 03:33 08/13/21 03:33 Labs: Laboratory Results - last 24 hr 08/12/21 11:48: Troponin I High Sens 133 H* 08/12/21 21:15: WBC 8.6, RBC 4.16 L, Hgb 11.0 L, Hct 36.7 L, MCV 88.2, MCH 26.4 L, MCHC 30.0 L, RDW Std Deviation 48.7 H, RDW Coeff of Naveen 15.2 H, Plt Count 221, MPV 10.2, Immature Gran % (Auto) 1.200 H, Neut % (Auto) 58.3, Lymph % (Auto) 27.5, [place] % (Auto) 7.1, Eos % (Auto) 5.4 H, Baso % (Auto) 0.5, Absolute Neuts (auto) 5.0, Absolute Lymphs (auto) 2.38, Nucleated RBC % 0 08/12/21 21:15: PT 14.6, INR 1.2, D-Dimer Quant (PE/DVT) 0.39 08/12/21 21:15: Sodium 140, Potassium 3.7, Chloride 106, Carbon Dioxide 30.0, Anion Gap 4 L, BUN 13, Creatinine 0.70, Estim Creat Clear Calc 77.87, Est GFR (MDRD) Af Amer 110, Est GFR (MDRD) Non-Af 91, BUN/Creatinine Ratio 18.6, Glucose 92, Calcium 8.4 L, Troponin I High Sens 122 H* 08/12/21 21:15: B-Natriuretic Peptide 108.2 H 08/13/21 03:33: WBC 10.2, RBC 4.22, Hgb 11.2 L, Hct 37.2, MCV 88.2, MCH 26.5 L, MCHC 30.1 L, RDW Std Deviation 48.6 H, RDW Coeff of Naveen 15.1 H, Plt Count 209, MPV 10.3, Immature Gran % (Auto) 1.200 H, Neut % (Auto) 57.1, Lymph % (Auto) 29.0, [place] % (Auto) 7.1, Eos % (Auto) 5.3 H, Baso % (Auto) 0.3, Absolute Neuts (auto) 5.8, Absolute Lymphs (auto) 2.96, Nucleated RBC % 0 08/13/21 03:33: PT 14.8, INR 1.2 08/13/21 03:33: Sodium 138, Potassium 3.2 L, Chloride 100, Carbon Dioxide 29.0, Anion Gap 9, BUN 13, Creatinine 0.67, Estim Creat Clear Calc 81.35, Est GFR (MDRD) Af Amer 116, Est GFR (MDRD) Non-Af 95, BUN/Creatinine Ratio 19.4, Glucose 101, Calcium 8.2 L, Phosphorus 3.5, Magnesium 1.8, TSH 1.11 08/13/21 03:33: Troponin I High Sens 147 H* Micro: Microbiology 08/12/21 22:40 Mucosa - Nasopharyngeal Respiratory Panel (PCR) - Final 08/12/21 21:00 Nasal Secretion SARS-CoV-2 Antigen (Rapid) - Final Rhythm Strip Rhythm Strip: A-fib Rate: 115 Ectopy: None Cardiology Labs/Tests 08/12/21 21:15: WBC 8.6, RBC 4.16 L, Hgb 11.0 L, Hct 36.7 L, MCV 88.2, MCH 26.4 L, MCHC 30.0 L, Plt Count 221, MPV 10.2, Immature Gran % (Auto) 1.200 H, Neut % (Auto) 58.3, Lymph % (Auto) 27.5, [place] % (Auto) 7.1, Eos % (Auto) 5.4 H, Baso % (Auto) 0.5, Absolute Neuts (auto) 5.0, Nucleated RBC % 0 08/12/21 21:15: PT 14.6, INR 1.2, D-Dimer Quant (PE/DVT) 0.39 08/12/21 21:15: Sodium 140, Potassium 3.7, Chloride 106, Carbon Dioxide 30.0, Anion Gap 4 L, BUN 13, Creatinine 0.70, Est GFR (MDRD) Af Amer 110, Est GFR (MDRD) Non-Af 91, BUN/Creatinine Ratio 18.6, Glucose 92, Calcium 8.4 L 08/12/21 21:15: B-Natriuretic Peptide 108.2 H 08/13/21 03:33: WBC 10.2, RBC 4.22, Hgb 11.2 L, Hct 37.2, MCV 88.2, MCH 26.5 L, MCHC 30.1 L, Plt Count 209, MPV 10.3, Immature Gran % (Auto) 1.200 H, Neut % (Auto) 57.1, Lymph % (Auto) 29.0, [place] % (Auto) 7.1, Eos % (Auto) 5.3 H, Baso % (Auto) 0.3, Absolute Neuts (auto) 5.8, Nucleated RBC % 0 08/13/21 03:33: PT 14.8, INR 1.2 08/13/21 03:33: Sodium 138, Potassium 3.2 L, Chloride 100, Carbon Dioxide 29.0, Anion Gap 9, BUN 13, Creatinine 0.67, Est GFR (MDRD) Af Amer 116, Est GFR (MDRD) Non-Af 95, BUN/Creatinine Ratio 19.4, Glucose 101, Calcium 8.2 L, Phosphorus 3.5, Magnesium 1.8 Rhythm: EKG: ECHO: Stress Test: Cardiac Cath: PCI: CT Surgery: Holter monitor: EPS: PPM: CXR: Chest CT Scan: Radiography Diagnostic Testing: Radiology Impression Chest X-Ray 08/12/21 21:18 IMPRESSION: Nonacute portable x-ray examination of the chest. Right upper arm/axillary subcutaneous emphysema, unknown cause. Electronically Signed: Tomas Gonzalez MD ([place]) at 21:41 EDT Reading Location ID and State: [facility] / [place] , Service support ,
[2021-08-13] MEDS: Jantoven 2 MG Tablet PO (17:28)
[2021-08-13] MEDS: Metoprolol Tartrate 25 MG Tablet PO (21:40)
[2021-08-13] MEDS: Atorvastatin Calcium 40 MG Tablet PO (21:40)
[2021-08-13] MEDS: Ascorbic Acid 500 MG Tablet 1000 MG PO (21:41)
[2021-08-13] MEDS: Senna/Docusate Sodium 1 Tablet 2 TABLET PO (21:46)
--- NOTE | 2021-08-13 22:41 | CPS ---
started over night pulse ox
[2021-08-14] VITALS (9 sets, daily range): BP systolic 111–125; BP diastolic 50–68; PULSE 51–62; RESP 16–18; TEMP 36.3–36.7; O2SAT 92
[2021-08-14] MEDS: 0.9% Saline Lock 10 ML Syringe IV ×2 (00:20→10:37)
[2021-08-14] MEDS: Ondansetron 4 MG/2 ML Vial IV ×2 (00:20→10:37)
[2021-08-14] MEDS: oxyCODONE 5 MG Tablet PO (05:14)
[2021-08-14 05:58] LABS: Absolute Lymphocyte Count 2.91 X10^3/uL (0.83-4.51); Absolute Neutrophil Count 4.4 X10^3/uL (2.0-7.7); Basophil# 0.03 X10^3/uL; Basophil% 0.3 % (0-1); Eosinophil# 0.73 X10^3/uL; Eosinophils% 8.2 % (0-5); Hematocrit 39.3 % (37-47); Hemoglobin 11.8 g/dL (12.0-15.0); Lymphocyte # 2.91 X10^3/ul (0.83-4.51); Lymphocyte % 32.9 % (19-41); Mean Corpuscular Hgb 26.5 pg (27.0-32.0); Mean Corpuscular Volume 88.1 fL (81-99); Mean Platelet Vol. 10.3 fl (6.2-12.0); Monocyte# 0.73 X10^3/uL; Monocyte% 8.2 % (0-10); NRBC Flagged by Analyzer 0 % (0-5); Neutrophil # 4.38 X10^3/uL (2.7-7.7); Neutrophil % 49.6 % (47-70); Platelet Count 238 K/mm3 (150-450); RBC Distribution Width CV 15.1 % (11.6-14.6); RBC Distribution Width SD 49.2 fl (35.1-43.9); Red Blood Count 4.46 M/mm3 (4.2-5.4); White Blood Count 8.9 K/mm3 (4.4-11.0)
[2021-08-14 06:09] LABS: International Normalized Ratio 1.4
[2021-08-14 06:26] LABS: ALB/GLOB Ratio 0.9 RATIO (0.9-2.4); AST(SGOT) 27 U/L (15-37); Alanine Aminotransfer ALT/SGPT 45 U/L (13-56); Albumin, Serum 3.3 g/dL (3.2-5.0); Alkaline Phosphatase 68 U/L (45-117); Anion Gap 5 (5-15); BUN 12 mg/dL (7-18); BUN/Creat Ratio 20.3 RATIO (10-20); Calcium,Total 8.4 mg/dL (8.5-10.1); Chloride 104 mmol/L (98-107); Creatinine, Serum 0.59 mg/dL (0.55-1.02); EST Glomerular Filtration Rate 111 mL/min (>60); Est Glom Filt Rate - Afr Amer 134 mL/min (>60); Estimated Creatinine Clearance 92.38 ml/min; Globulin 3.6 g/dL (2.2-4.2); Glucose 110 mg/dL (74-106); Potassium 4.4 mmol/L (3.5-5.1); Protein, Total 6.9 g/dL (6.4-8.2); Sodium Level 138 mmol/L (136-145)
[2021-08-14] MEDS: Aspirin 81 MG TAB.CHEW PO (08:12)
--- NOTE | 2021-08-14 09:04 | PCM.PN.CARD ---
Subjective Subjective The patient was seen and evaluated. The recent events have been evaluated as well. Objective Data Vital Signs: Vital Signs Temp Pulse Resp BP Pulse Ox FiO2 98.1 F 58 L 18 111/68 92 2 08/14/21 08:48 08/14/21 08:48 08/14/21 08:48 08/14/21 08:48 08/14/21 08:48 08/12/21 20:51 Oxygen Flow Rate (L/min) 2 Oxygen Delivery Method Nasal Cannula Weight: 252 lb 3.341 oz Body Mass Index (BMI) 41.9 Intake & Output: Intake and Output for Last 24 Hours 08/12/21 08/13/21 08/14/21 23:59 23:59 23:59 Intake Total 1924 / 1924 360 / 360 Output Total 1700 / 1700 Balance 224 / 224 360 / 360 Lab / Micro Data Attestation: I reviewed the patient's lab results. Result Diagrams: 08/14/21 05:26 08/14/21 05:26 Labs: Laboratory Results - last 24 hr 08/14/21 05:26: PT 17.0 H, INR 1.4 08/14/21 05:26: WBC 8.9, RBC 4.46, Hgb 11.8 L, Hct 39.3, MCV 88.1, MCH 26.5 L, MCHC 30.0 L, RDW Std Deviation 49.2 H, RDW Coeff of Naveen 15.1 H, Plt Count 238, MPV 10.3, Immature Gran % (Auto) 0.800, Neut % (Auto) 49.6, Lymph % (Auto) 32.9, [place] % (Auto) 8.2, Eos % (Auto) 8.2 H, Baso % (Auto) 0.3, Absolute Neuts (auto) 4.4, Absolute Lymphs (auto) 2.91, Nucleated RBC % 0 08/14/21 05:26: Sodium 138, Potassium 4.4, Chloride 104, Carbon Dioxide 29.0, Anion Gap 5, BUN 12, Creatinine 0.59, Estim Creat Clear Calc 92.38, Est GFR (MDRD) Af Amer 134, Est GFR (MDRD) Non-Af 111, BUN/Creatinine Ratio 20.3 H, Glucose 110 H, Calcium 8.4 L, Total Bilirubin 0.30, AST 27, ALT 45, Alkaline Phosphatase 68, Total Protein 6.9, Albumin 3.3, Globulin 3.6, Albumin/Globulin Ratio 0.9 Rhythm Strip Rhythm Strip: Sinus Rhythm Rate: 67 Ectopy: None Cardiology Labs/Tests 08/14/21 05:26: PT 17.0 H, INR 1.4 08/14/21 05:26: WBC 8.9, RBC 4.46, Hgb 11.8 L, Hct 39.3, MCV 88.1, MCH 26.5 L, MCHC 30.0 L, Plt Count 238, MPV 10.3, Immature Gran % (Auto) 0.800, Neut % (Auto) 49.6, Lymph % (Auto) 32.9, [place] % (Auto) 8.2, Eos % (Auto) 8.2 H, Baso % (Auto) 0.3, Absolute Neuts (auto) 4.4, Nucleated RBC % 0 08/14/21 05:26: Sodium 138, Potassium 4.4, Chloride 104, Carbon Dioxide 29.0, Anion Gap 5, BUN 12, Creatinine 0.59, Est GFR (MDRD) Af Amer 134, Est GFR (MDRD) Non-Af 111, BUN/Creatinine Ratio 20.3 H, Glucose 110 H, Calcium 8.4 L, Total Bilirubin 0.30 Rhythm: EKG: ECHO: Stress Test: Cardiac Cath: PCI: CT Surgery: Holter monitor: EPS: PPM: CXR: Chest CT Scan: Physical Exam Const alert, oriented x3 and no apparent distress General Appearance: cooperative HEENT hearing grossly normal bilaterally Head and Scalp: atraumatic Eyes EOMs intact bilaterally Neck General: normal visual inspection Chest inspection of chest normal and palpation of chest normal Resp normal respiratory effort Auscultation: clear to auscultation bilaterally Cardio regular rate, regular rhythm, S1 normal heart sound and S2 normal heart sound Jugular Venous Distention: JVD GI normal to inspection, nondistended, normoactive bowel sounds Extremity normal capillary refill and no pedal edema Peripheral Pulses: Yes pulses 2+ throughout and femoral pulses present Skin no rashes or lesions noted Neuro oriented x3 and CN's II-XII intact bilaterally Psych Appearance: grossly normal and appropriate Assessment & Plan Assessment/Plan (1) Atrial fibrillation with rapid ventricular response: PLAN: Patient appears to have had an episode of atrial fibrillation with a rapid ventricular response rate. She is maintaining sinus rhythm at this particular time. My recommendation is to continue the current dose of the beta-brenda with the metoprolol 25 mg twice a day. I would recommend the echocardiogram to assess her ventricular function and depending on the findings further recommendations made. She can likely be discharged later today for outpatient follow-up. (2) Elevated troponin: PLAN: I suspect the above is on the basis of demand ischemia I would not do any work-up at this particular time. Previous stress test within the last 3 years has been normal. (3) Hypercoagulable state: PLAN: She does have a history of a hypercoagulable state and is on anticoagulation. She is currently being bridged with Lovenox to Coumadin.
[2021-08-14] MEDS: Pantoprazole Sodium 20 MG Tablet PO (10:26)
[2021-08-14] MEDS: guaiFENesin 1,200 MG Tablet 1200 MG PO (10:26)
[2021-08-14] MEDS: Sertraline 50 MG Tablet PO (10:27)
[2021-08-14] MEDS: Mycophenolate Mofetil 250 MG Capsule 500 MG PO (10:27)
[2021-08-14] MEDS: Metoprolol Tartrate 25 MG Tablet PO (10:28)
[2021-08-14] MEDS: busPIRone 5 MG Tablet 7.5 MG PO (10:28)
[2021-08-14] MEDS: Enoxaparin 120 MG/0.8 ML Syringe 115 MG SC (10:36)
--- NOTE | 2021-08-14 10:40 | CASEMGMT ---
RN CM [employer] CM to room to meet with patient for initial transition planning/care coordination assessment. JUDE SHORT introduced self and role at [facility].? Pt voices understanding and consents to assessment at this time.? Pt resting in bed in no distress at this time.? Pt is A/O at this time and answers all questions appropriately.?? Care providers, pharmacy, and demographics verified/updated at this time. PCP: Dr Rowley Specialists: Dr Rodriguez--ortho, Dr Miller--Peanut Sheller @ [facility], Dr Chaudhary-neurologist @ [facility] Preferred Pharmacy: [facility] Retail Insurance: [place] Prescription Benefit:?Yes LNOK: [place] Living Arrangements: Lives w/ and dtr in one-story home w/basement. 2 steps to enter. Independent prior to surgery on Sat for rotator cuff repair and was working full-time. and dtr able to assist as needed. Transportation:? , dtr DME: ?States has the following DME:?pulse ox, INR monitor. Has a cane, walker, and W/C available, but does not use. No home O2. Pt provided w/list of local DME companies, if she would qualify for home O2. She has no preference. ?Pt states no need for further DME at this time.? HHC/SNF: No hx of either. No needs identified. Pt wishes to return home and states has no concerns with going home at time of discharge.? CM to follow for home oxygen needs and any further discharge planning/needs.? Pt voices no further concerns/needs at this time.? Advised pt to ask for CM if any further questions/concerns/needs arise.? Voices understanding. PLAN:??Home w/family support and discharge plans in place. Eric ESCAMILLA RN, CM
--- NOTE | 2021-08-14 12:57 | DCINST_ITS ---
Discharge Instructions Diet Discharge Diet: Low fat / Low cholesterol and 2000 mg Sodium Diet Activity Discharge Activity: Return to Normal Activity Follow Up Care Test Results: Test results from this visit will be discussed in further detail at your follow- up appointment, if applicable. Discharge Plan Admission Admit Date/Time: 08/13/21 14:47 Primary Reason for Your Visit: A fib with RVR Attending Provider: Jenae Ness Primary Care Provider: Sammi Rowley Consulting Providers: Macey Miller ; Nargis Hardy Instructions Additional Instructions / Restrictions: Continue to take your Lovenox due to Coumadin overlap as a bridge. Continue to follow-up for regular INR checks as already scheduled. You should stop your Lovenox when your INR is therapeutic according to your doctor. Take note of your new medications. Follow-up with cardiology and pulmonology in the outpatient. Discharge Orders/Prescriptions Prescriptions: New metoprolol tartrate 25 mg Tablet 25 mg PO BID 30 Days Qty: 60 0RF Continued methadone 10 MG tablet 10 mg PO Q8H oxycodone-acetaminophen 1 TABLET tablet 1 tab PO TID PRN PRN (Reason: Pain) atorvastatin 40 MG tablet 40 mg PO QHS aspirin 81 MG tablet,chewable 81 mg PO DAILY@0800 buspirone 7.5 MG tablet 7.5 mg PO DAILY sertraline 50 MG tablet 50 mg PO DAILY albuterol sulfate [ProAir HFA] 1 PUFF inhaler 2 puff inhalation Q4H PRN PRN (Reason: Sob &/Or Wheezing) Label Comments: TAKE 2 PUFFS BY MOUTH EVERY 4 HOURS NEEDED cyclobenzaprine 10 mg Tablet 10 mg PO TID ascorbic acid (vitamin C) 1,000 mg Tablet 1,000 mg PO QHS ondansetron HCl 4 mg tablet 4 tab PO QHS Label Comments: Take 1 tablet by mouth every eight hours as needed May take up to 2 tablets as needed. pantoprazole 20 mg tablet,delayed release (DR/EC) 1 tab PO DAILY Label Comments: TAKE 1 TABLET BY MOUTH TWICE DAILY. TAKE ON EMPTY STOMACH, 30 MINUTES BEFORE MEAL mycophenolate mofetil 500 mg Tablet 500 mg PO BID furosemide 20 mg Tablet 20 mg PO BID PRN (Reason: swelling) cholecalciferol (vitamin D3) 25 mcg (1,000 unit) Capsule 1 unit PO QHS enoxaparin 100 mg/mL Syringe 100 mg SUBCUT Q12H warfarin [Jantoven] 3 MG tablet 7.5 mg PO DAILY Rx Instructions: take 7.5 mg 08/10, 08/11, 08/12. Take 5 mg 08/13, 08/14. Recheck INR 08/15. Discontinued carvedilol 12.5 mg Tablet 12.5 mg PO BID Rx Instructions: must administer with a meal/food Referrals / Follow Up: Sammi Rowley MD [Primary Care Provider] - Ophelia Cui NP, [employer] [Nurse Practitioner] - 09/04/21 1:15 pm Disposition Disposition (needs filled in before D/C Order can be placed): Home, Self Care
--- NOTE | 2021-08-14 13:05 | PCM.DC.SUM ---
Providers Date of Admission: 08/13/21 Date of Discharge: 08/14/21 Primary Care Physician: Dr. Sammi Rowley MD Consultations 08/13/21 07:24 Consult: Cardiology Routine Consulting Provider: Nargis Hardy Reason for Consult: Elevated troponon EMERGENT Consult: No MD Notified: Yes Date Notified: 08/13/21 Time Notified: 09:26 Method of Notification: Verbal Reason For Visit: SOB/HYPOXIA Diagnosis Discharge Diagnosis (1) Atrial fibrillation with rapid ventricular response: Status: Acute Code(s): I48.91 - Unspecified atrial fibrillation (2) Elevated troponin: Status: Acute Code(s): R77.8 - Other specified abnormalities of plasma proteins (3) Hypercoagulable state: Status: Acute Code(s): D68.59 - Other primary thrombophilia Medications at Discharge Home Medications methadone 10 mg tablet 10 mg PO Q8H pain 09/19/17 oxycodone-acetaminophen 5 mg-325 mg tablet 1 tab PO TID PRN PRN Pain 09/19/17 atorvastatin 40 mg tablet 40 mg PO QHS cholesterol 02/11/18 aspirin 81 mg chewable tablet 81 mg PO DAILY@0800 [facility] 02/22/18 albuterol sulfate 90 mcg/actuation aerosol inhaler (ProAir HFA) 2 puff inhalation Q4H PRN PRN Sob &/Or Wheezing 04/02/18 buspirone 7.5 mg tablet 7.5 mg PO DAILY anxiety 04/02/18 sertraline 50 mg tablet 50 mg PO DAILY depression 04/02/18 ascorbic acid (vitamin C) 1,000 mg tablet 1,000 mg PO QHS supplement 08/12/21 cholecalciferol (vitamin D3) 25 mcg (1,000 unit) capsule 1 unit PO QHS supplement 08/12/21 cyclobenzaprine 10 mg tablet 10 mg PO TID muscle relaxer 08/12/21 enoxaparin 100 mg/mL subcutaneous syringe 100 mg subcut Q12H blood thinner 08/12/21 furosemide 20 mg tablet 20 mg PO BID PRN swelling 08/12/21 mycophenolate mofetil 500 mg tablet 500 mg PO BID vasculitis 08/12/21 ondansetron HCl 4 mg tablet 4 tab PO QHS nausea 08/12/21 pantoprazole 20 mg tablet,delayed release 1 tab PO DAILY GERD 08/12/21 warfarin 3 mg tablet (Jantoven) 7.5 mg PO DAILY blood thinner 08/12/21 metoprolol tartrate 25 mg tablet 25 mg PO BID 30 days #60 tabs 08/14/21 Hospital Course Operations None Procedures 2-D Echocardiogram Summary of Care Provided Minutes Spent on Discharge: 45 Hospital Course: -year-old female with past medical history of factor V deficiency, who recently had right rotator cuff surgery done in the [facility] in [place]. Patient comes in with shortness of breath. Post procedure a week prior to admission, she has some. Breathing and needed oxygen. She was kept overnight. She however comes in with progressive shortness of breath. She is on Lovenox with Coumadin bridging. Work-up in the ED showed hypoxia with oxygen saturation of 91% on room air. She reportedly was 81% at home. Her D-dimer was 0.39. Her BNP was 108.2. Chest x-ray was unremarkable. Patient was found to be in A. fib with RVR. She spontaneously converted out of A. fib in the ED Patient was admitted to the progressive care unit, monitored on telemetry, continued on Coreg, given a dose of Lasix. She remained in normal sinus rhythm. Cardiology was consulted. She was continued on her Lovenox and Coumadin bridging. INR was 1.4. Patient was switched from Coreg to metoprolol. 2D echo showed EF of 60%, otherwise unremarkable. Patient was discharged home to follow-up with cardiology in the outpatient. She was also recommended to have a sleep study and she was asked to lose weight. She knows to continue on her therapeutic Lovenox as well as Coumadin bridging and follow-up with her previous plan for frequent INR checks until INR is therapeutic. Physical Exam Narrative Physical exam: General: Alert, Oriented x3, Cooperative, morbidly obese, HEENT: Atraumatic Oral: Moist Mucosa Neck: Supple Lungs: Diminished to auscultation at the lung bases Cardiovascular: HS I+II, regular, no murmurs Abdomen: Bowel Sounds Present, Soft, Non Tender Extremities: No edema Weight / BMI Weight Weight: 114.4 kg Body Mass Index (BMI) 41.9 ABG / Lab / Microbiology Data Result Diagrams: 08/14/21 05:26 08/14/21 05:26 Laboratory: Laboratory Results - last 24 hr 08/14/21 05:26: PT 17.0 H, INR 1.4 08/14/21 05:26: WBC 8.9, RBC 4.46, Hgb 11.8 L, Hct 39.3, MCV 88.1, MCH 26.5 L, MCHC 30.0 L, RDW Std Deviation 49.2 H, RDW Coeff of [place] 15.1 H, Plt Count 238, MPV 10.3, Immature Gran % (Auto) 0.800, Neut % (Auto) 49.6, Lymph % (Auto) 32.9, [place] % (Auto) 8.2, Eos % (Auto) 8.2 H, Baso % (Auto) 0.3, Absolute Neuts (auto) 4.4, Absolute Lymphs (auto) 2.91, Nucleated RBC % 0 08/14/21 05:26: Sodium 138, Potassium 4.4, Chloride 104, Carbon Dioxide 29.0, Anion Gap 5, BUN 12, Creatinine 0.59, Estim Creat Clear Calc 92.38, Est GFR (MDRD) Af Amer 134, Est GFR (MDRD) Non-Af 111, BUN/Creatinine Ratio 20.3 H, Glucose 110 H, Calcium 8.4 L, Total Bilirubin 0.30, AST 27, ALT 45, Alkaline Phosphatase 68, Total Protein 6.9, Albumin 3.3, Globulin 3.6, Albumin/Globulin Ratio 0.9 Microbiology: Microbiology 08/12/21 22:40 Mucosa - Nasopharyngeal Respiratory Panel (PCR) - Final 08/12/21 21:00 Nasal Secretion SARS-CoV-2 Antigen (Rapid) - Final D/C Instructions Discharge Diet: Low fat / Low cholesterol and 2000 mg Sodium Diet Meaningful Use Info Meaningful Use Diagnoses (Choose all that apply): None applicable Discharge Plan Admission Admit Date/Time: 08/13/21 14:47 Primary Reason for Your Visit: A fib with RVR Attending Provider: Jenae Ness Primary Care Provider: Sammi Rowley Consulting Providers: Macey Miller ; Nargis Hardy Instructions Additional Instructions / Restrictions: Continue to take your Lovenox due to Coumadin overlap as a bridge. Continue to follow-up for regular INR checks as already scheduled. You should stop your Lovenox when your INR is therapeutic according to your doctor. Take note of your new medications. Follow-up with cardiology and pulmonology in the outpatient. Discharge Orders/Prescriptions Prescriptions: New metoprolol tartrate 25 mg Tablet 25 mg PO BID 30 Days Qty: 60 0RF Continued methadone 10 MG tablet 10 mg PO Q8H oxycodone-acetaminophen 1 TABLET tablet 1 tab PO TID PRN PRN (Reason: Pain) atorvastatin 40 MG tablet 40 mg PO QHS aspirin 81 MG tablet,chewable 81 mg PO DAILY@0800 buspirone 7.5 MG tablet 7.5 mg PO DAILY sertraline 50 MG tablet 50 mg PO DAILY albuterol sulfate [ProAir HFA] 1 PUFF inhaler 2 puff inhalation Q4H PRN PRN (Reason: Sob &/Or Wheezing) Label Comments: TAKE 2 PUFFS BY MOUTH EVERY 4 HOURS NEEDED cyclobenzaprine 10 mg Tablet 10 mg PO TID ascorbic acid (vitamin C) 1,000 mg Tablet 1,000 mg PO QHS ondansetron HCl 4 mg tablet 4 tab PO QHS Label Comments: Take 1 tablet by mouth every eight hours as needed May take up to 2 tablets as needed. pantoprazole 20 mg tablet,delayed release (DR/EC) 1 tab PO DAILY Label Comments: TAKE 1 TABLET BY MOUTH TWICE DAILY. TAKE ON EMPTY STOMACH, 30 MINUTES BEFORE MEAL mycophenolate mofetil 500 mg Tablet 500 mg PO BID furosemide 20 mg Tablet 20 mg PO BID PRN (Reason: swelling) cholecalciferol (vitamin D3) 25 mcg (1,000 unit) Capsule 1 unit PO QHS enoxaparin 100 mg/mL Syringe 100 mg SUBCUT Q12H warfarin [Jantoven] 3 MG tablet 7.5 mg PO DAILY Rx Instructions: take 7.5 mg 16, 6/17, 618. Take 5 mg 08/13, 6. Recheck INR 08/15. Discontinued carvedilol 12.5 mg Tablet 12.5 mg PO BID Rx Instructions: must administer with a meal/food Referrals / Follow Up: Sammi Rowley MD [Primary Care Provider] - Mayank Langford MD [STAFF PHYSICIAN] - 11/08/21 1:30 pm (in 2-4 weeks office will put you on a call list to get you in sooner, if any cancellations, they will call to see if you can come in. ) Cui,Ophelia EMPLOYMENT TRAINING SPECIALIST, EMPLOYMENT TRAINING SPECIALIST-C [Nurse Practitioner] - 09/04/21 1:15 pm Disposition Disposition (needs filled in before D/C Order can be placed): Home, Self Care Charges/Coding Visit Charges Inpatient E&M: 24149 Disch Hosp
--- NOTE | 2021-08-14 14:19 | PHA.DC.MC ---
Pharmacy Service has performed discharge medication reconciliation and counseling for this patient. 1. METOPROLOL TARTRATE 25MG PO BID The patient's discharge medication list was reviewed for discrepancies and discrepancies were resolved. Home Medications methadone 10 mg tablet 10 mg PO Q8H pain 09/19/17 oxycodone-acetaminophen 5 mg-325 mg tablet 1 tab PO TID PRN PRN Pain 09/19/17 atorvastatin 40 mg tablet 40 mg PO QHS cholesterol 02/11/18 aspirin 81 mg chewable tablet 81 mg PO DAILY@0800 [facility] 02/22/18 albuterol sulfate 90 mcg/actuation aerosol inhaler (ProAir HFA) 2 puff inhalation Q4H PRN PRN Sob &/Or Wheezing 04/02/18 buspirone 7.5 mg tablet 7.5 mg PO DAILY anxiety 04/02/18 sertraline 50 mg tablet 50 mg PO DAILY depression 04/02/18 ascorbic acid (vitamin C) 1,000 mg tablet 1,000 mg PO QHS supplement 08/12/21 cholecalciferol (vitamin D3) 25 mcg (1,000 unit) capsule 1 unit PO QHS supplement 08/12/21 cyclobenzaprine 10 mg tablet 10 mg PO TID muscle relaxer 08/12/21 enoxaparin 100 mg/mL subcutaneous syringe 100 mg subcut Q12H blood thinner 08/12/21 furosemide 20 mg tablet 20 mg PO BID PRN swelling 08/12/21 mycophenolate 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 The Reason for Use, instructions for use, and potential side effects were reviewed for all new medications. The patient's questions regarding all of their medications were answered. The patient was able to verbally demonstrate an understanding of their discharge medications.
--- NOTE | 2021-08-14 15:02 | CASEMGMT ---
Pt discharged prior to home oxygen testing completed. Pt 92% on room air at rest. Jenaro ROQUE CM
== END 2021-08-14 14:58 | disposition home or self-care (01) | DRG 308 ==
LOC: ED 22:03 → PCU 22:19
PROVIDERS: Admitting Provider Internal Medicine; Emergency Provider Emergency Medicine; PCP Internal Medicine; Visit Provider Internal Medicine
DX: I48.0 Paroxysmal atrial fibrillation (principal); I11.0 Hypertensive heart disease with heart failure; I50.31 Acute diastolic (congestive) heart failure; J96.01 Acute respiratory failure with hypoxia; D68.2 Hereditary deficiency of other clotting factors; Z68.41 Body mass index [BMI] 40.0-44.9, adult; D68.59 Other primary thrombophilia; E66.01 Morbid (severe) obesity due to excess calories; I25.10 Atherosclerotic heart disease of native coronary artery without angina pectoris; K21.9 Gastro-esophageal reflux disease without esophagitis; E78.5 Hyperlipidemia, unspecified; Z20.822 Contact with and (suspected) exposure to COVID-19; R77.8 Other specified abnormalities of plasma proteins; G89.4 Chronic pain syndrome; R50.82 Postprocedural fever; R50.9 Fever, unspecified; F41.9 Anxiety disorder, unspecified; Z79.01 Long term (current) use of anticoagulants; Z79.82 Long term (current) use of aspirin; Z79.52 Long term (current) use of systemic steroids; Z79.899 Other long term (current) drug therapy; Z86.73 Personal history of transient ischemic attack (TIA), and cerebral infarction without residual deficits; Z86.718 Personal history of other venous thrombosis and embolism; Z87.891 Personal history of nicotine dependence; E87.6 Hypokalemia
CPT/HCPCS: 36415; 71045; 80048; 80053; 83735; 83880; 84100; 84443; 84484; 85025; 85379; 85610; 87426; 87633; 87811; 93005; 93306; 94762; 97802; 99251; 99285; J7040; Q9957; A4216; C8929; G0463; J1940; J2405

== ENCOUNTER → 2021-09-29 | Outpatient (CLI) | payer BC, SELFPAY ==
[2021-09-29] MEDS: Zolpidem Tartrate 5 MG Tablet PO (21:15)
== END | disposition home or self-care (01) ==
LOC: SL 20:25
PROVIDERS: PCP Internal Medicine; Referring Provider Nurse Practitioner Acute Care; Visit Provider Nurse Practitioner Acute Care
DX: G47.33 Obstructive sleep apnea (adult) (pediatric) (principal)
CPT/HCPCS: 95810

== ENCOUNTER 2021-12-03 16:30 | Emergency (ER) | payer BC, SELFPAY ==
[2021-12-03 16:31] VITALS: BP 141/75; PULSE 71; RESP 14; TEMP 36.6; O2SAT 98; BMI 41.5
--- NOTE | 2021-12-03 16:44 | EDS_ITS ---
HPI History of Present Illness Chief Complaint: Chest Other Detail of Chief Complaint: Left-sided positional chest pain at the left costal margin. Informant: patient Onset/Context/Timing Onset: Hours Activity at onset: activity on onset Timing: Intermittent Quality: Positive for Aching and - (Feels like a pulled muscle) Location: Left Chest Current Severity: Mild Maximum Severity: Severe Worsened By: Movement of Arm, Movement of Torso and Palpation; Not Worsened By Breathing or Coughing Relieved By: Nothing Associated Symptoms: Negative for Nausea, Vomiting, Diaphoresis, Dyspnea, Cough, Fever, Lightheadedness, Acid Reflux or Palpitations Narrative Narrative: Patient is a 61-year-old woman with history of hyperlipidemia, paroxysmal atrial fibrillation on Coumadin, obstructive sleep apnea who presents with pain that is located under her left breast near the left costal margin. Certain movement causes her pain. Breathing does not cause her pain. Palpation causes her pain. She denies shortness of breath. She denies nausea, vomit diarrhea. She denies diaphoresis. She does have a remote history of DVT due to factor V Leiden deficiency. As previously stated she is on Coumadin. She denies leg pain, swelling discoloration. 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 Prior Similar Symptoms: No Recent Illness/Hospitalization: No CVD Risk Factors: Positive for Hypercholesterolemia; Negative for Hypertension, Diabetes or Family History 1' </=55 PE Risk Factors: Positive for Prior DVT or PE; Negative for Recent Travel/Surgery, Recent Immobilization, Cancer or OCP + Smoking + >/=35 TAD Risk Factors: Negative for Marfan's Syndrome, Hypertension or Family History [facility] Medical History Acute ischemic stroke Anxiety Chronic back pain Factor V deficiency History of deep vein thrombosis Hyperlipemia PAF (paroxysmal atrial fibrillation) Reflex sympathetic dystrophy Home Medications methadone 10 mg tablet 10 mg PO Q8H pain 09/19/17 [History Last Taken 04/02/18] oxycodone-acetaminophen 5 mg-325 mg tablet 1 tab PO TID PRN PRN Pain 09/19/17 [History Last Taken 08/12/21] atorvastatin 40 mg tablet 40 mg PO QHS cholesterol 02/11/18 [History Last Taken 08/12/21] aspirin 81 mg chewable tablet 81 mg PO DAILY@0800 [facility] 02/22/18 [History Last Taken 08/12/21] albuterol sulfate 90 mcg/actuation aerosol inhaler (ProAir HFA) 2 puff inhalation Q4H PRN PRN Sob &/Or Wheezing 04/02/18 [History Last Taken Unknown] ascorbic acid (vitamin C) 1,000 mg tablet 1,000 mg PO QHS supplement 08/12/21 [History Last Taken 08/12/21] cholecalciferol (vitamin D3) 25 mcg (1,000 unit) capsule 1 unit PO QHS supplement 08/12/21 [History Last Taken 08/12/21] mycophenolate mofetil 500 mg tablet 500 mg PO BID vasculitis 08/12/21 [History Last Taken 08/12/21] pantoprazole 20 mg tablet,delayed release 1 tab PO DAILY GERD 08/12/21 [History Last Taken 08/12/21] warfarin 3 mg tablet (Jantoven) 7.5 mg PO DAILY blood thinner 08/12/21 [History Last Taken 08/12/21] buspirone 7.5 mg tablet 10 mg PO TID anxiety 09/11/21 [History Last Taken Unknown] cyclobenzaprine 10 mg tablet 10 mg PO TID PRN muscle relaxer 09/11/21 [History Last Taken Unknown] metoprolol tartrate 25 mg tablet 25 mg PO BID #180 tabs 09/11/21 [Rx Last Taken Unknown] sertraline 50 mg tablet 100 mg PO DAILY depression 09/11/21 [History Last Taken Unknown] oxycodone-acetaminophen 5 mg-325 mg tablet 1 tab PO Q6H PRN PRN Pain 3 days #12 TABLETS 12/03/21 [Rx Last Taken Unknown] Allergy/AdvReac Type Severity Reaction Status Date / Time adhesive tape AdvReac BLISTERS Verified 12/03/21 16:34 hydrocodone [From Vicodin] AdvReac Other Verified 12/03/21 16:34 pentazocine [From Talwin] AdvReac Other Verified 12/03/21 16:34 propoxyphene AdvReac Nausea Verified 12/03/21 16:34 [From Darvocet-N] STEROID INJECTION AdvReac HIGH BLOOD Uncoded 12/03/21 16:34 PRESSURE Family History Other Factor V Leiden Hypertension Surgical History H/O rotator cuff surgery Social History household members: family housing: house Smoking Status: Former smoker alcohol intake: current alcohol intake frequency: a few times a month substance use type: does not use ROS ROS ED Constitutional Constitutional ED: Denies chills, fever(s), subjective, sweats or weight loss Eyes Eyes: Reports none; Denies blurry vision, change in vision or diplopia ENT ENT ED: Denies ear pain, rhinorrhea or sore throat Cardiovascular Cardiovascular: Reports as per HPI Respiratory/Chest Respiratory/Chest: Denies cough, dyspnea or dyspnea on exertion Gastrointestinal Gastrointestinal: Denies abdominal pain, diarrhea, melena, nausea or vomiting Genitourinary Genitourinary ED: Denies dysuria, hematuria or urinary frequency Musculoskeletal Musculoskeletal: Denies arthralgias, back pain or myalgias Integumentary Denies Abrasions or rash Hematologic/Lymphatic Hematologic/Lymphatic: Denies easy bleeding or easy bruising EXAM Physical Exam Const Vital Signs: 12/03/21 16:31 12/03/21 16:35 12/03/21 17:19 Temperature 97.9 F Temperature Source Temporal Pulse Rate 71 62 Respiratory Rate 14 16 Respiratory Effort Normal Non-Labored Respiratory Pattern Normal Blood Pressure 141/75 H 104/63 Blood Pressure Mean 97 76 Pulse Ox 98 98 Oxygen Delivery Method Room Air Room Air Positive well nourished, well developed and obese Constitutional Narrative: Patient appears uncomfortable. Certain movements cause her significant discomfort she grimaces. Palpation of the area causes her increased pain as well. General Appearance ED: well developed; Negative for pallor Nutritional Appearance: obese HEENT Reports moist mucous membranes HEENT Narrative: Ears normal. Nares patent. normocephalic and atraumatic Eyes PERRL and EOMs intact bilaterally General Eye ED: Negative for pale conjunctiva or scleral icterus Neck no lymphadenopathy, supple and no JVD Chest Wall inspection of chest normal and palpation of chest normal Chest Narrative: There is no rash to suggest herpes varicella-zoster. There is no hyperesthesia. There is no crepitus or subcutaneous air. Resp normal respiratory effort and clear to auscultation bilaterally Cardio regular rate, regular rhythm, S1 normal heart sound, S2 normal heart sound and no murmurs GI normal to inspection, nondistended, normoactive bowel sounds, soft to palpation, non-tender, non-distended and no masses; Negative for hepatosplenomegaly Back/Spine no CVA tenderness and no thoracic nor lumbar tenderness Extremity normal to inspection General Extremety ED: Negative for edema General Extremity: Negative for edema Neuro oriented x3, CN's II-XII intact bilaterally, no sensory deficits noted and gait normal Sensorium / Orientation: awake and alert Psych mental status grossly normal Skin no rashes or lesions noted and no wounds General Skin Exam: Negative for jaundice or pallor MDM MDM MDM Narrative Medical decision making narrative: Abrupt onset muscular pain will obtain x-ray to assess for rib fracture, infiltrate, hemothorax. Since patient is on Coumadin PT/INR was obtained. She was medicated with IV morphine. Lab Data Attestation: I reviewed the patient's lab results. Lab results narrative: INR subtherapeutic Labs: Laboratory Results - last 24 hr 12/03/21 16:56 PT 19.7 H INR 1.7 Radiography Chest X-Ray - ED: 2 View and Read by ED Physician (2 view chest x-ray was independent reviewed and interpreted by me at 1730 as negative. Cardiac silhouette size normal. Perihilar region normal. [place] structures normal. Lung parenchyma is unremarkable. There is no evidence of pneumothorax, hemothorax or fractured ribs.) Discharge Plan Triage Chief Complaint: Chest Other ED Provider: HowardGonzalez Dx/Rx/DC Orders Clinical Impression: Left-sided chest wall pain, Subtherapeutic international normalized ratio (INR), Factor V Leiden, Anticoagulant long-term use Instructions: ED Muscle Spasm Prescriptions: New oxycodone-acetaminophen [oxycodone-acetaminophen] 5-325 mg tablet 1 tab PO Q6H PRN PRN (Reason: Pain) 3 Days Qty: 12 0RF No Action metoprolol tartrate 25 mg tablet 25 mg PO BID Qty: 180 3RF methadone 10 MG tablet 10 mg PO Q8H oxycodone-acetaminophen 1 TABLET tablet 1 tab PO TID PRN PRN (Reason: Pain) atorvastatin 40 MG tablet 40 mg PO QHS aspirin 81 MG tablet,chewable 81 mg PO DAILY@0800 albuterol sulfate [ProAir HFA] 1 PUFF inhaler 2 puff inhalation Q4H PRN PRN (Reason: Sob &/Or Wheezing) Label Comments: TAKE 2 PUFFS BY MOUTH EVERY 4 HOURS NEEDED sertraline 50 mg tablet 100 mg PO DAILY buspirone 7.5 mg tablet 10 mg PO TID ascorbic acid (vitamin C) 1,000 mg Tablet 1,000 mg PO QHS pantoprazole 20 mg tablet,delayed release (DR/EC) 1 tab PO DAILY Label Comments: TAKE 1 TABLET BY MOUTH TWICE DAILY. TAKE ON EMPTY STOMACH, 30 MINUTES BEFORE MEAL mycophenolate mofetil 500 mg Tablet 500 mg PO BID cholecalciferol (vitamin D3) 25 mcg (1,000 unit) Capsule 1 unit PO QHS warfarin [Jantoven] 3 MG tablet 7.5 mg PO DAILY Rx Instructions: take 7.5 mg 08/10, 08/11, 08/12. Take 5 mg 08/13, 08/14. Recheck INR 08/15. cyclobenzaprine 10 mg tablet 10 mg PO TID PRN (Reason: muscle relaxer) Primary Care Provider: Sammi Rowley Referrals: Sammi Rowley MD [Primary Care Provider] - 3-5 Days Activity Restrictions/Additional Instructions: 1. Apply ice to the left side of your chest 6-10 times a day 2. Take 6 mg of Coumadin a day. 3. Contact Dr. Downs of 4 blood draw to assess your INR in 3 to 5 days Disposition Disposition: Home, Self Care
[2021-12-03] MEDS: Morphine 4 MG/ML Syringe IV (17:13)
[2021-12-03 17:19] VITALS: BP 104/63; PULSE 62; RESP 16; O2SAT 98
--- NOTE | 2021-12-03 17:22 | RAD_ITS ---
STUDY: X-RAY CHEST REASON FOR EXAM: Female, 61 years old. Left chest pain. Left anterior rib pain. No known injury. TECHNIQUE: PA and lateral views of the chest. COMPARISON: 08/12/2021. FINDINGS: The lungs are clear and expanded. There is no demonstrated pleural abnormality. Normal size heart. Normal mediastinum and pricilla. Normal visualized pulmonary arteries. Normal visualized aortic arch and descending thoracic aorta. There are diffuse degenerative changes of the visualized thoracic spine. There is degenerative osteoarthritis of the bilateral shoulders. There is no demonstrated abnormality of the visualized soft tissue structures of the upper abdomen. RAD/Chest PA and Lateral IMPRESSION: Degenerative changes, as described above. No demonstrated acute cardiopulmonary process. Electronically Signed: Gurinder Gar DO at 18:23 EDT ,
[2021-12-03 17:23] LABS: International Normalized Ratio 1.7; Prothrombin Time (Protime)PT. 19.7 SECONDS (11.7-14.9)
[2021-12-03 17:40] VITALS: BP 159/53; PULSE 58; RESP 18; O2SAT 97
== END 2021-12-03 17:59 | disposition home or self-care (01) ==
PROVIDERS: Emergency Provider Emergency Medicine; PCP Internal Medicine; Visit Provider Emergency Medicine
DX: R07.89 Other chest pain (principal); I48.0 Paroxysmal atrial fibrillation; D68.2 Hereditary deficiency of other clotting factors; M54.9 Dorsalgia, unspecified; G89.29 Other chronic pain; E78.00 Pure hypercholesterolemia, unspecified; G47.33 Obstructive sleep apnea (adult) (pediatric); Z79.01 Long term (current) use of anticoagulants; Z79.82 Long term (current) use of aspirin; Z79.899 Other long term (current) drug therapy; Z87.891 Personal history of nicotine dependence; Z86.718 Personal history of other venous thrombosis and embolism
CPT/HCPCS: 71046; 85610; 96374; 99282; A4216

== ENCOUNTER 2022-01-15 10:30 | Outpatient (RCR) | payer OTHER, BC, SELFPAY ==
--- NOTE | 2021-10-10 08:28 | HP.PTEVAL ---
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 DOS: 08/10/21. Date of Evaluation: 10/04/21 Physical Therapist: Alfredo Shirley DPT - Visit Plan Frequency: 2x /Week Duration: 8 weeks Plan: Start with PROM with focus on progressing towards end range. Add in manual techniques to UT, periscapular musculature. Progress per protocol. - Subjective Pt. is here today for her initial evaluation with diagnosis scope revision of RTC tear, massive in size. DOS: 08/10/21. Pt. arrives today with sling on without pillow, was removed 2 weeks ago. She reports overall doing much better. She is having some trouble sleeping and reports some occasional muscle spasms in her UT/scapular region. No N/T in either UE. Pt. has been doing very little, as instructed. She reports 4/10 pain currently in her arm and deltoid region. 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 She denies fever, no reports of infection. Pt. is hopeful to increase her ROM and reduce pain allowing for her to get back to all work related activities without limitations. - Pain R shoulder Pain Intensity (Out of 10): 4 Pain Intensity Range: 2, 5 - Objective POSTURE: pt. has FH posture, R shoulder in guarded positioning across waist. Hard for her to relax her arm. PALPATION: Well healing incision no signs of infection. Pt. has tenderness at R UT, R levator scap regions. Mild tenderness at sub acromial space region as well. NEURO: normal sensation throughout BUEs. Normal DTR of bilateral triceps. ROM: L shoulder: full active ROM. PROM: L shoulder; flexion 95deg, scaption 95deg, ER at side 30deg. Pt. reports mild pain at end range, but overall doing well. full elbow ROM noted. MMT: RUE: did not test. LUE: 5/5 throughout without increase in symptoms. - Balance/Special Test Scores Quick DASH Score: 72.7250 - Goals Goal 1:: LTG: Pt. to be I with HEP. Goal Time Frame: 4-6 Weeks Goal 2:: STG: Pt. to be able to sleep without increase in R shoulder pain allowing for improved quality of life. Goal Time Frame: 2 Weeks Goal 3:: LTG: pt. to have full R shoulder PROM without increase in symptoms. Goal Time Frame: 4-6 Weeks Goal 4:: LTG: pt. to have full AROM of L shoulder without increase in symptoms. Goal Time Frame: 6-8 Weeks Goal 5:: LTG: Pt. to have full 5/5 strength of L shoulder including deltoid and scapular/periscapular musculature. Goal Time Frame: 6-8 Weeks Goal 6:: LTG: pt. to resume all work related activities without increase in symptoms. Goal Time Frame: 8-12 Weeks - Rehabilitation Potential Physical Therapy Diagnosis: Pt. has signs and symptoms consistent with scope revision of R shoulder RTC tear, massive in size. DOS: 08/10/21. Pt. has marked hypomobility of her R shoulder, pain with stretching, marked weakness as well. She would benefit from PT to address the above limitations progressing back to full ROM then strengthening of her R shoulder allowing full return to work related activities. Rehabilitation Potential: Excellent - Anticipated Interventions Patient/Client Instruction: Educate patient on: Condition, Plan of Care, Risk Factors, Benefits of Fitness Program For the Purpose of:: To foster healthy habits, To improve decision making, To facilitate caregiver knowledge, To improve self management, To prevent re-injury, To improve ability to perform tasks related to life management Therapeutic Exercise to Include: Strength training, Power training, Endurance training, Body mechanics, Flexibilty training, Passive ROM, Active ROM, Scapular Strength/Stabilization For the Purpose of:: To decrease pain, To decrease swelling/inflammation, To increase ROM, To improve nutrient delivery to tissue, To increase oxygenation perfusion, To improve muscle performance and motor function, To improve ability to perform ADL's, To increase tolerance to activity/condition/position, To improve health of tissue, To decrease soft tissue restriction, To increase flexibility/ROM Manual Therapy Techniques to Include: Mobilization, Passive ROM, Soft tissue mobilization For the Purpose of:: To decrease pain, To decrease swelling/inflammation, To increase ROM, To improve nutrient delivery to tissue, To increase oxygenation perfusion, To improve muscle performance and motor function IF ES: Yes Cryotherapy (ice pack, ice massage): Yes Thermo therapy (hot pack): Yes For the Purpose of:: To decrease pain, To decrease swelling/inflammation, To increase ROM, To improve nutrient delivery to tissue Thank you for the opportunity to evaluate your patient. For Medicare and Medicare HMO plans, please review the plan of care and approve it. It will need to be FAXED BACK to us at [phone] for Medicare purposes. For Medicare only, by signing this I certify the plan of care. Please let me know if there are questions or concerns regarding this plan of care. Physician Signature: Date:
--- NOTE | 2021-11-06 13:59 | HP.PTREVAL_ITS ---
HELADIO HOLLAND, It has been my pleasure to treat STEPHANIE KNIGHT over the last 8 visits for scope revision of R shoulder RTC tear, massive in size. DOS: 08/10/21. Please see the progress note below for an update on the physical therapy plan of care! Subjective: Pt. reports overall doing okay. She is still having a feeling like her shoulder catches at times and some pain with active motions into flexion and abduction. She reports being HEP compliant with pullies and with scap retraction, shoulder shrugs. She has been doing wand exercises as well without issues, completing through tolerated motions. Objective/Function: I did some manual to R levator scap as she is tender in this region as well. She is doing better with AAROM and with pullies. She still has limited active motion to ~90deg of abd and flexion. She reports a catching feeling with all types of motion into flexion and abduction as well. She is progressing, but slowly mostly due to her tolerance. She is progressing with ROM, much better than last time. Overall doing well, but slightly slower. Plan Plan: Start with PROM with focus on progressing towards end range. Add in manual techniques to UT, periscapular musculature. Progress per protocol. Balance/Gait/Functional tests - Balance/Special Test Scores Quick DASH Score: 72.7250 Goals Goal 1:: LTG: Pt. to be I with HEP. Goal Time Frame: 4-6 Weeks Goal Progress: Progressing Goal 2:: STG: Pt. to be able to sleep without increase in R shoulder pain allowing for improved quality of life. Goal Time Frame: 2 Weeks Goal Progress: Progressing Goal 3:: LTG: pt. to have full R shoulder PROM without increase in symptoms. Goal Time Frame: 4-6 Weeks Goal Progress: Progressing Goal 4:: LTG: pt. to have full AROM of L shoulder without increase in symptoms. Goal Time Frame: 6-8 Weeks Goal Progress: Progressing Goal 5:: LTG: Pt. to have full 5/5 strength of L shoulder including deltoid and scapular/periscapular musculature. Goal Time Frame: 6-8 Weeks Goal 6:: LTG: pt. to resume all work related activities without increase in symptoms. Goal Time Frame: 8-12 Weeks Anticipated Interventions Patient/Client Instruction: Educate patient on: Condition, Plan of Care, Risk Factors, Benefits of Fitness Program For the Purpose of:: To foster healthy habits, To improve decision making, To facilitate caregiver knowledge, To improve self management, To prevent re- injury, To improve ability to perform tasks related to life management Therapeutic Exercise to Include: Strength training, Power training, Endurance training, Body mechanics, Flexibilty training, Passive ROM, Active ROM, Scapular Strength/Stabilization For the Purpose of:: To decrease pain, To decrease swelling/inflammation, To increase ROM, To improve nutrient delivery to tissue, To increase oxygenation perfusion, To improve muscle performance and motor function, To improve ability to perform ADL's, To increase tolerance to activity/condition/position, To improve health of tissue, To decrease soft tissue restriction, To increase flexibility/ROM Manual Therapy Techniques to Include: Mobilization, Passive ROM, Soft tissue mobilization For the Purpose of:: To decrease pain, To decrease swelling/inflammation, To increase ROM, To improve nutrient delivery to tissue, To increase oxygenation perfusion, To improve muscle performance and motor function IF ES: Yes Cryotherapy (ice pack, ice massage): Yes Thermo therapy (hot pack): Yes For the Purpose of:: To decrease pain, To decrease swelling/inflammation, To increase ROM, To improve nutrient delivery to tissue Please do not hesitate to contact me at [phone] by phone or if you have questions or concerns regarding this new plan of care! Sincerely, ISIDORO OrtegaT
--- NOTE | 2021-12-19 11:03 | HP.PTREVAL_ITS ---
HELADIO HOLLAND, It has been my pleasure to treat STEPHANIE KNIGHT over the last 17 visits for scope revision of R shoulder RTC tear, massive in size. DOS: 08/10/21. Please see the progress note below for an update on the physical therapy plan of care! Subjective: Pt. reports having increased soreness since last week. She did have a bit of trouble last night sleeping. Her L rib area is doing better today. Objective/Function: Pt. to see physician today. Stephanie was doing well with her ROM and had started light initial strengthening. We did some Sidelying shoulder ER to neutral without wt. last visit. PROM: flexion 130deg, abd 130deg, ER at 90deg of ABD 70deg, IR at side 40deg. AROM: flexion 95deg, abd 90deg, functional ER C2 aberrant motion, functional IR L5. MMT: 3+/5 throughout R shoulder. Prior to last week she was doing very well with her motion and AROM, she was tight into her ER and IR. We initiated active side lying ER without weight and has been reporting increased pain since. Her pain is more at posterior aspect of her subacrominal space. Pt. is progressing but slowly. The last 4-5 days have been more sore. Plan Plan: Pt. to see physician today. Balance/Gait/Functional tests - Balance/Special Test Scores Quick DASH Score: 72.7250 Goals Goal 1:: LTG: Pt. to be I with HEP. Goal Time Frame: 4-6 Weeks Goal Progress: Progressing Goal 2:: STG: Pt. to be able to sleep without increase in R shoulder pain allowing for improved quality of life. Goal Time Frame: 2 Weeks Goal Progress: Progressing Goal 3:: LTG: pt. to have full R shoulder PROM without increase in symptoms. Goal Time Frame: 4-6 Weeks Goal Progress: Progressing Goal 4:: LTG: pt. to have full AROM of L shoulder without increase in symptoms. Goal Time Frame: 6-8 Weeks Goal Progress: Progressing Goal 5:: LTG: Pt. to have full 5/5 strength of L shoulder including deltoid and scapular/periscapular musculature. Goal Time Frame: 6-8 Weeks Goal 6:: LTG: pt. to resume all work related activities without increase in symptoms. Goal Time Frame: 8-12 Weeks Anticipated Interventions Patient/Client Instruction: Educate patient on: Condition, Plan of Care, Risk Factors, Benefits of Fitness Program For the Purpose of:: To foster healthy habits, To improve decision making, To facilitate caregiver knowledge, To improve self management, To prevent re- injury, To improve ability to perform tasks related to life management Therapeutic Exercise to Include: Strength training, Power training, Endurance training, Body mechanics, Flexibilty training, Passive ROM, Active ROM, Scapular Strength/Stabilization For the Purpose of:: To decrease pain, To decrease swelling/inflammation, To increase ROM, To improve nutrient delivery to tissue, To increase oxygenation perfusion, To improve muscle performance and motor function, To improve ability to perform ADL's, To increase tolerance to activity/condition/position, To improve health of tissue, To decrease soft tissue restriction, To increase flexibility/ROM Manual Therapy Techniques to Include: Mobilization, Passive ROM, Soft tissue mobilization For the Purpose of:: To decrease pain, To decrease swelling/inflammation, To increase ROM, To improve nutrient delivery to tissue, To increase oxygenation perfusion, To improve muscle performance and motor function IF ES: Yes Cryotherapy (ice pack, ice massage): Yes Thermo therapy (hot pack): Yes For the Purpose of:: To decrease pain, To decrease swelling/inflammation, To increase ROM, To improve nutrient delivery to tissue Please do not hesitate to contact me at [phone] by phone or if you have questions or concerns regarding this new plan of care! Sincerely, Alfredo Shirley DPT
== END 2022-01-15 19:00 | disposition home or self-care (01) ==
LOC: PT 10:30
PROVIDERS: PCP Internal Medicine; Referring Provider Physician Assistant Medical; Visit Provider Physician Assistant Medical
DX: M75.101 Unspecified rotator cuff tear or rupture of right shoulder, not specified as traumatic (principal); M75.41 Impingement syndrome of right shoulder
CPT/HCPCS: 97110; 97161; 97164

== ENCOUNTER → 2022-04-24 | Outpatient (CLI) | payer BC, SELFPAY ==
--- NOTE | 2022-04-24 13:33 | EKG12_ITS ---
Test Reason : PAIN MNGMNT Blood Pressure : / mmHG Vent. Rate : 053 BPM Atrial Rate : 053 BPM P-R Int : 140 ms QRS Dur : 082 ms QT Int : 424 ms P-R-T Axes : 048 023 049 degrees QTc Int : 397 ms Sinus bradycardia Otherwise normal ECG Confirmed by ANTONIO BRENNAN, VICTOR HUGO ([id number]), assistant film editor ROYCE AYALA ([id number]) on 04/25/2022 10:22:47 AM Referred By: KARLA HER Confirmed By:VICTOR HUGO ALVAREZ MD
== END | disposition home or self-care (01) ==
PROVIDERS: PCP Internal Medicine
DX: Z79.899 Other long term (current) drug therapy (principal)
CPT/HCPCS: 93005

== ENCOUNTER 2022-05-11 13:30 | Outpatient (RCR) | payer OTHER, BC, SELFPAY ==
--- NOTE | 2022-04-25 13:59 | HP.PTREVAL_ITS ---
Dr. Sammi Rowley MD, It has been my pleasure to treat STEPHANIE KNIGHT over the last 1 visits for R RTC tear. Please see the progress note below for an update on the physical therapy plan of care! Subjective: Pt. arrives today after being off for a few months. 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 She is having some trouble sleeping as well. Objective/Function: AROM: R shoulder: flexion 90deg, abd 75deg, functional ER ear, functional IR gluteal region. PROM: R shoulder: flexion 110deg, abd 90deg., ER at side 30deg,. full elbow ROM without increase in symptoms. MMT: R elbow: flexion 20#, ext 10#, R shoulder; 3/5 throughout, except 4/5. Pt. has decreased ROM in her R arm. We need to work on restoring this, she does have high levels of pain with any passive and active movements. She did have an arthrogram which was inconclusive. Plan Plan: Start with AAROM and PROM as tolerated. Add in periscapular muscle activation as tolerated. Goals Goal 1:: LTG: pt. to be able to sleep on her R side without increase in symptoms. Goal Time Frame: 4-6 Weeks Goal 2:: STG: Pt. to have increased PROM to 75% of full motion without increase in symptoms. Goal Time Frame: 2-4 Weeks Goal 3:: LTG: Pt. to have increased AROM to at least 75% of full without increase in R shoulder pain. Goal Time Frame: 4-6 Weeks Goal Progress: Progressing Goal 4:: LTG: Pt. to have increased R shoulder strength to at least 4/5 throughout without increase in symptoms. Goal Time Frame: 4-6 Weeks Goal 5:: LTG: Pt. to complete all of her work duties without increase in R shoulder pain. Goal Time Frame: 4-6 Weeks Anticipated Interventions Patient/Client Instruction: Educate patient on: Condition, Plan of Care, Risk Factors, Benefits of Fitness Program For the Purpose of:: To foster healthy habits, To improve decision making, To facilitate caregiver knowledge, To improve self management, To prevent re-injur y, To improve ability to perform tasks related to life management Therapeutic Exercise to Include: Strength training, Power training, Endurance training, Passive ROM, Active ROM, Scapular Strength/Stabilization For the Purpose of:: To decrease pain, To increase ROM, To improve nutrient delivery to tissue, To increase oxygenation perfusion, To improve muscle performance and motor function, To improve health of tissue, To decrease soft tissue restriction, To increase flexibility/ROM IF ES: Yes Cryotherapy (ice pack, ice massage): Yes Ultrasound (thermal/non thermal): Yes For the Purpose of:: To decrease pain, To decrease swelling/inflammation, To increase ROM, To improve nutrient delivery to tissue Please do not hesitate to contact me at [phone] by phone or if you have questions or concerns regarding this new plan of care! Sincerely, ISIDORO OrtegaT
== END 2022-05-11 19:00 | disposition home or self-care (01) ==
LOC: PT 13:30
PROVIDERS: PCP Internal Medicine; Visit Provider Internal Medicine
DX: M75.101 Unspecified rotator cuff tear or rupture of right shoulder, not specified as traumatic (principal); M75.41 Impingement syndrome of right shoulder
CPT/HCPCS: 97014; 97110; 97164; G0283

== ENCOUNTER 2023-01-21 10:04 | Emergency (ER) | payer OTHER, BC, SELFPAY ==
[2023-01-21 10:06] VITALS: BP 146/71; PULSE 64; RESP 14; TEMP 36.4; O2SAT 98; BMI 35.0
--- NOTE | 2023-01-21 10:15 | EKG12_ITS ---
Test Reason : TRAUMA/FALL Blood Pressure : / mmHG Vent. Rate : 058 BPM Atrial Rate : 058 BPM P-R Int : 156 ms QRS Dur : 080 ms QT Int : 406 ms P-R-T Axes : 039 023 061 degrees QTc Int : 398 ms Sinus bradycardia Otherwise normal ECG Confirmed by ANDRE BRENNAN, LINDA ([id number]), business editor ROYCE AYALA ([id number]) on 01/22/2023 10:47:34 AM Referred By: ZACH/MUNIRA Confirmed By:LINDA POWELL MD
--- NOTE | 2023-01-21 10:31 | ED.VIS.FALL ---
HPI HPI - Fall History of Present Illness Chief Complaint: Trauma Informant: patient Occured/Mechanism Mechanism/Context: Yes trip Usually ambulates: Without assistance Pain/Injury Pain Location: head, chest and upper extremity (Right hand) Quality of Pain: Sharp, Aching and Throbbing Worsened by: Certain movements Relieved by: Nothing Associated Symptoms Associated Symptoms: Negative for Parasthesias, Weakness, Loss of function, Inability to ambulate, Loss of consciousness or Amnesia Narrative Narrative: Patient presents after a fall that occurred at work today. Patient states she tripped and fell forward. Patient complains of pain in her right hand, chest, and head. Patient denies any loss of consciousness. Patient denies any paresthesias or weakness. Patient was able to ambulate after the fall without difficulty. Patient describes her pain as sharp, aching, and throbbing. Patient states her pain is worse with certain movements. Patient denies any other injuries. [facility] Medical History Acute ischemic stroke Anxiety Chronic back pain Factor V deficiency Fever High risk medication use History of deep vein thrombosis Hypercoagulable state Hyperlipemia Obesity Obstructive sleep apnea PAF (paroxysmal atrial fibrillation) Reflex sympathetic dystrophy Home Medications methadone 10 mg tablet 10 mg PO Q8H pain 09/19/17 [History Last Taken 04/02/18] oxycodone-acetaminophen 5 mg-325 mg tablet 1 tab PO TID PRN PRN Pain 09/19/17 [History Last Taken 08/12/21] atorvastatin 40 mg tablet 40 mg PO QHS cholesterol 02/11/18 [History Last Taken 08/12/21] aspirin 81 mg chewable tablet 81 mg PO DAILY@0800 heart [facility] 02/22/18 [History Last Taken 08/12/21] albuterol sulfate 90 mcg/actuation aerosol inhaler (ProAir HFA) 2 puff inhalation Q4H PRN PRN Sob &/Or Wheezing 04/02/18 [History Last Taken Unknown] ascorbic acid (vitamin C) 1,000 mg tablet 1,000 mg PO QHS supplement 08/12/21 [History Last Taken 08/12/21] cholecalciferol (vitamin D3) 25 mcg (1,000 unit) capsule 1 unit PO QHS supplement 08/12/21 [History Last Taken 08/12/21] mycophenolate mofetil 500 mg tablet 500 mg PO BID vasculitis 08/12/21 [History Last Taken 08/12/21] pantoprazole 20 mg tablet,delayed release 1 tab PO DAILY GERD 08/12/21 [History Last Taken 08/12/21] warfarin 3 mg tablet (Febtoven) 7.5 mg PO DAILY blood thinner 08/12/21 [History Last Taken 08/12/21] buspirone 7.5 mg tablet 10 mg PO TID anxiety 09/11/21 [History Last Taken Unknown] cyclobenzaprine 10 mg tablet 10 mg PO TID PRN muscle relaxer 09/11/21 [History Last Taken Unknown] sertraline 50 mg tablet 100 mg PO DAILY depression 09/11/21 [History Last Taken Unknown] oxycodone-acetaminophen 5 mg-325 mg tablet 1 tab PO Q6H PRN PRN Pain 3 days #12 TABLETS 12/03/21 [Rx Last Taken Unknown] metoprolol tartrate 25 mg tablet 25 mg PO BID #180 tabs 08/23/22 [Rx Last Taken Unknown] Allergy/AdvReac Type Severity Reaction Status Date / Time adhesive tape AdvReac BLISTERS Verified 01/21/23 10:05 Corticosteroids AdvReac Other Verified 01/21/23 10:05 (Glucocorticoids) hydrocodone [From Vicodin] AdvReac Other Verified 01/21/23 10:05 pentazocine [From Talwin] AdvReac Other Verified 01/21/23 10:05 propoxyphene AdvReac Nausea Verified 01/21/23 10:05 [From Darvocet-N] Family History Other Factor V Leiden Hypertension Surgical History H/O rotator cuff surgery Social History household members: family housing: house Smoking Status: Former smoker alcohol intake: current alcohol intake frequency: a few times a month substance use type: does not use ROS ROS ED Constitutional Constitutional ED: Denies chills or fever(s) Eyes Eyes: Denies blurry vision or change in vision ENT ENT ED: Denies rhinorrhea or sore throat Cardiovascular Cardiovascular: Reports chest pain; Denies palpitations Respiratory/Chest Respiratory/Chest: Denies cough or dyspnea Gastrointestinal Gastrointestinal: Denies nausea or vomiting Genitourinary Genitourinary ED: Denies dysuria or hematuria Musculoskeletal Musculoskeletal: Reports back pain; Denies neck pain Integumentary Denies abscess or rash Neurologic Neurologic: Reports headache(s); Denies weakness Allergic/Immunologic Allergic/Immunologic ED: Denies mouth swelling or urticaria EXAM Physical Exam Const Vital Signs: 01/21/23 10:06 01/21/23 11:21 Temperature 97.6 F L Temperature Source Temporal Pulse Rate 64 Respiratory Rate 14 Respiratory Effort Normal Non-Labored Blood Pressure 146/71 H Blood Pressure Mean 96 Pulse Ox 98 Oxygen Delivery Method Room Air Positive well nourished, well developed and obese General Appearance ED: well developed and NAD Nutritional Appearance: obese HEENT HEENT Narrative: There is edema and ecchymosis over the right forehead area. There is a hematoma over this area. There is also some ecchymosis over the right infraorbital area. There is no bony crepitance or step-off noted. Eyes PERRL and EOMs intact bilaterally Eyes Narrative: There is no evidence of extraocular muscle entrapment. Neck full ROM and supple Chest Wall Chest Narrative: There is tenderness over the upper costochondral junctions of the ribs. There is no edema or ecchymosis. There is no bony crepitance or step-off noted. Resp normal respiratory effort and clear to auscultation bilaterally Cardio regular rate and regular rhythm GI non-tender and non-distended Palpation: soft Extremity Extremity Narrative: There is tenderness, edema, and ecchymosis over the fifth metacarpal and fifth digit of the right hand. There is no obvious deformity noted. Range of motion was slightly limited in all motions of the right fifth finger secondary to pain. Sensation was intact to light touch in all digits. Capillary refill was less than 2 seconds in all digits. Strength is 5/5 bilaterally in the upper extremities. Radial pulses are equal bilaterally. Neuro oriented x3, CN's II-XII intact bilaterally, moves all extremities, no focal motor deficits and no sensory deficits noted Shireen Coma Scale: document GCS findings Spontaneous Obeys Commands Oriented 15 Sensorium / Orientation: alert Motor Exam: strength 5/5 throughout Psych mental status grossly normal and thought process normal MDM MDM MDM Narrative Medical decision making narrative: Differential diagnosis includes intracranial bleeding, concussion, closed head injury, right hand fracture, and rib fracture. Chest x-ray will be obtained to assess for rib fracture and pneumothorax. X-ray of the right hand will be obtained to assess for right hand fracture. CT scan of the brain will be obtained to assess for intracranial bleeding. EKG will be obtained to assess for cardiac dysrhythmia and cardiac ischemia. Radiography Chest X-Ray - ED: 2 View, Read by ED Physician, Read by Radiologist and No Acute Disease Diagnostic Testing: Clinical Impression(s) from Imaging Studies Brain CT 01/21/23 10:38 IMPRESSION: 1. Right frontal scalp soft tissue hematoma. 2. No acute intracranial process. 3. Right frontoparietal encephalomalacia. Electronically Signed: Edi Castrejon MD at 11:48 EST , Chest X-Ray 01/21/23 10:38 IMPRESSION: No radiographic evidence of acute cardiopulmonary disease. Electronically Signed: Edi Castrejon MD at 11:52 EST , Hand X-Ray 01/21/23 10:38 IMPRESSION: No evidence of acute fracture. Electronically Signed: Edi Castrejon MD at 11:48 EST , CT scan of the brain was obtained. There is no acute intracranial abnormality. There is a soft tissue hematoma in the right frontal scalp. This was interpreted by the radiologist and was also independently reviewed by myself. PA and lateral chest x-ray was obtained. There are 2 views. On my independent interpretation, lung jay are clear. There is normal cardiac silhouette. Bony thorax is normal. There is no acute process noted. Radiologist also interpreted the x-ray and agrees. X-ray of the right hand was obtained. There are 3 views. On my independent interpretation, there is no acute fracture or dislocation noted. There is no soft tissue swelling noted. Radiologist also interpreted the x-rays and agrees. EKG Initial EKG: Attestation: I personally reviewed and interpreted this EKG as follows: Interpretation: No Acute Injury Pattern and Sinus Bradycardia (58) Comments: EKG was obtained. On my independent interpretation, it showed a sinus bradycardia with a rate of 58. MN interval, QRS interval, and QTc intervals were all normal. Newton was normal. There are no acute ST or T wave changes. Prior EKG tracings: available for review Prior: Unchanged (04/24/2022) Treatment and Re-Evaluation Narrative: Patient was given ice pack here. Patient was advised of her findings. Patient was instructed to continue using ice to the area. Patient was instructed to take Tylenol or ibuprofen as needed for pain. Patient was instructed to follow-up with her primary care physician in 5 to 7 days. Patient understood and was agreeable with the plan. All questions were answered. Discharge Plan Triage Chief Complaint: Trauma ED Provider: Aldo Buenrostro Dx/Rx/DC Orders Clinical Impression: Forehead contusion, Chest wall contusion, Fall, Contusion of right hand, initial encounter Prescriptions: No Action methadone 10 MG tablet 10 mg PO Q8H oxycodone-acetaminophen 1 TABLET tablet 1 tab PO TID PRN PRN (Reason: Pain) atorvastatin 40 MG tablet 40 mg PO QHS aspirin 81 MG tablet,chewable 81 mg PO DAILY@0800 albuterol sulfate [ProAir HFA] 1 PUFF inhaler 2 puff inhalation Q4H PRN PRN (Reason: Sob &/Or Wheezing) Patient Comments: TAKE 2 PUFFS BY MOUTH EVERY 4 HOURS NEEDED sertraline 50 mg tablet 100 mg PO DAILY buspirone 7.5 mg tablet 10 mg PO TID ascorbic acid (vitamin C) 1,000 mg Tablet 1,000 mg PO QHS pantoprazole 20 mg tablet,delayed release (DR/EC) 1 tab PO DAILY Patient Comments: TAKE 1 TABLET BY MOUTH TWICE DAILY. TAKE ON EMPTY STOMACH, 30 MINUTES BEFORE MEAL mycophenolate mofetil 500 mg Tablet 500 mg PO BID cholecalciferol (vitamin D3) 25 mcg (1,000 unit) Capsule 1 unit PO QHS warfarin [Jantoven] 3 MG tablet 7.5 mg PO DAILY Rx Instructions: take 7.5 mg 08/10, 08/11, 08/12. Take 5 mg 08/13, 08/14. Recheck INR 08/15. cyclobenzaprine 10 mg tablet 10 mg PO TID PRN (Reason: muscle relaxer) oxycodone-acetaminophen [oxycodone-acetaminophen] 5-325 mg tablet 1 tab PO Q6H PRN PRN (Reason: Pain) 3 Days Qty: 12 0RF metoprolol tartrate 25 mg tablet 25 mg PO BID Qty: 180 3RF Stand Alone Forms: Work Status Form Primary Care Provider: Sammi Rowley Referrals: Sammi Rowley MD [Primary Care Provider] - 5-7 Days Disposition Disposition: Home, Self Care
--- NOTE | 2023-01-21 10:38 | CT_ITS ---
INDICATION: Injury/Pain EXAMINATION: CT BRAIN - CT Head or Brain W/O Contrast Injection TECHNIQUE: Multiple axial images were obtained of the head without intravenous contrast. A radiation dose optimization technique was used for this scan. IV Contrast dosage and agent: None. RADIATION DOSAGE (If Supplied By Facility): CTDIvol = ( 44.99 ) mGy, DLP = ( 849.54 ) mGycm COMPARISON: Prior study dated: 04/02/2018. FINDINGS: BRAIN PARENCHYMA: No intra- or extra-axial hemorrhage. Chronic right frontoparietal encephalomalacia associated with mild dilatation of the right lateral ventricle. No intracranial mass or mass effect. There is preservation of the vargas/white matter interface. Posterior fossa structures are unremarkable. CSF SPACES: Mild atrophy. No hydrocephalus. Basal cisterns are patent. CALVARIUM, SKULL BASE, PARANASAL SINUSES AND MASTOID AIR CELLS: Right frontal scalp soft tissue hematoma. No evidence of calvarial fracture. The visualized sinuses are essentially clear. No discrete lytic or blastic abnormalities. ORBITS: Both globes, extraocular muscles, optic nerves and retrobulbar fat appear unremarkable. CT/Brain/Head without Contrast IMPRESSION: 1. Right frontal scalp soft tissue hematoma. 2. No acute intracranial process. 3. Right frontoparietal encephalomalacia. Electronically Signed: Edi Castrejon MD at 11:48 EST ,
--- NOTE | 2023-01-21 10:38 | RAD_ITS ---
INDICATION: Chest pain EXAMINATION/TECHNIQUE: X-RAY - XR Chest 2 Views COMPARISON: Prior study dated: 08/12/2021. FINDINGS: LINES/DEVICES: None. LUNGS: Mild elevation of the right hemidiaphragm and hypoventilatory changes. No focal infiltrate is seen. No evidence of pleural effusions. MEDIASTINUM AND CARDIOVASCULAR STRUCTURES: Cardiac silhouette not enlarged. Central airways and mediastinal contour are unremarkable. BONES AND SOFT TISSUES: Stable soft tissues and osseous structures. RAD/Chest PA and Lateral IMPRESSION: No radiographic evidence of acute cardiopulmonary disease. Electronically Signed: Edi Castrejon MD at 11:52 EST ,
--- NOTE | 2023-01-21 10:38 | RAD_ITS ---
INDICATION: Injury/Pain EXAMINATION/TECHNIQUE: X-RAY - RIGHT XR Hand Min 3 Views 3 VIEWS COMPARISON: No relevant prior comparison study available FINDINGS: SOFT TISSUES: No soft tissue swelling or gas. No radiopaque foreign body. BONES/JOINTS: No acute fracture or subluxation.. Normal alignment. Preservation of the joint space.. No sclerotic or destructive changes observed. RAD/Hand Min 3 Views IMPRESSION: No evidence of acute fracture. Electronically Signed: Edi Castrejon MD at 11:48 EST ,
[2023-01-21 14:08] VITALS: RESP 16
== END 2023-01-21 14:09 | disposition home or self-care (01) ==
PROVIDERS: Emergency Provider Emergency Medicine; PCP Internal Medicine; Visit Provider Emergency Medicine
DX: S00.03XA Contusion of scalp, initial encounter (principal); E78.5 Hyperlipidemia, unspecified; Z87.891 Personal history of nicotine dependence; S20.20XA Contusion of thorax, unspecified, initial encounter; S60.221A Contusion of right hand, initial encounter; Y99.0 Civilian activity done for income or pay; E66.9 Obesity, unspecified; W01.0XXA Fall on same level from slipping, tripping and stumbling without subsequent striking against object, initial encounter
CPT/HCPCS: 70450; 71046; 73130; 93005; 99284

== ENCOUNTER → 2023-01-22 | Outpatient (CLI) | payer BC, SELFPAY ==
--- NOTE | 2023-01-22 13:45 | RAD_ITS ---
STUDY: X-RAY - RIGHT SHOULDER REASON FOR EXAM: Female, 62 years old. Right shoulder pain following a fall. TECHNIQUE: 4 view(s) of the shoulder. COMPARISON: None. FINDINGS: Normal glenohumeral articulation. Normal acromioclavicular joint. Normal acromion. Cystic changes seen in the greater tuberosity of the proximal humerus most likely secondary to degenerative changes. The soft tissue structures are unremarkable. Normal visualized pulmonary apex. RAD/Shoulder min 2 Views IMPRESSION: No acute abnormality is seen. Electronically Signed: Venkat Reagan MD at 14:26 EST ,
--- NOTE | 2023-01-22 14:14 | RAD_ITS ---
STUDY: X-RAY - RIGHT WRIST REASON FOR EXAM: Female, 62 years old. Pain following a fall. TECHNIQUE: 3 view(s) of the wrist were obtained. COMPARISON: None. FINDINGS: Normal visualized distal radius and ulna. Normal radiocarpal articulation. Normal distal radioulnar articulation. Normal carpal bones. Normal carpal articulations. Normal carpometacarpal articulation of the thumb. Normal second through fifth carpometacarpal articulations. Normal visualized metacarpal bones. Soft tissue swelling. RAD/Wrist min 3 Views IMPRESSION: Soft tissue swelling. Electronically Signed: Venkat Reagan MD at 15:10 EST ,
--- NOTE | 2023-01-22 14:14 | RAD_ITS ---
STUDY: X-RAY - RIGHT KNEE REASON FOR EXAM: Female, 62 years old. Fall TECHNIQUE: 4 view(s) of the knee. COMPARISON: None. FINDINGS: Normal visualized distal femur. Normal visualized proximal tibia and fibula. Normal proximal tibiofibular articulation. There is moderate degenerative arthrosis of the medial femorotibial compartment with moderate joint space narrowing. Normal lateral femorotibial compartment. Normal patellofemoral articulation. The soft tissue structures are unremarkable. RAD/Knee 4 or More Views IMPRESSION: Degenerative arthrosis. Electronically Signed: Venkat Reagan MD at 15:08 EST ,
--- NOTE | 2023-01-22 14:14 | RAD_ITS ---
STUDY: X-RAY - LEFT KNEE REASON FOR EXAM: Female, 62 years old. Fall TECHNIQUE: 4 view(s) of the knee. COMPARISON: None. FINDINGS: Normal visualized distal femur. Normal visualized proximal tibia and fibula. Normal proximal tibiofibular articulation. There is severe degenerative arthrosis of the medial femorotibial compartment with severe joint space narrowing. Normal lateral femorotibial compartment. Normal patellofemoral articulation. The soft tissue structures are unremarkable. RAD/Knee 4 or More Views IMPRESSION: Degenerative arthrosis. Electronically Signed: Venkat Reagan MD at 15:05 EST ,
== END | disposition home or self-care (01) ==
PROVIDERS: PCP Internal Medicine; Referring Provider Physician Assistant; Visit Provider Physician Assistant
DX: S49.91XA Unspecified injury of right shoulder and upper arm, initial encounter (principal); M17.0 Bilateral primary osteoarthritis of knee; M79.89 Other specified soft tissue disorders; W19.XXXA Unspecified fall, initial encounter
CPT/HCPCS: 73030; 73110; 73564

== ENCOUNTER → 2023-01-28 | Outpatient (CLI) | payer BC, SELFPAY ==
--- NOTE | 2023-01-28 10:45 | RAD_ITS ---
STUDY: X-RAY CHEST REASON FOR EXAM: Female, 62 years old. Right-sided anterior chest pain following a recent fall. Difficulty breathing. TECHNIQUE: PA and lateral views of the chest. COMPARISON: Comparison is made with prior study January 21, 2023. FINDINGS: The lungs are clear and expanded. Scattered calcified granulomas. There is no demonstrated pleural abnormality. Normal size heart. Normal mediastinum and pricilla. Normal visualized pulmonary arteries. There is atherosclerotic calcification of the aortic arch with tortuosity. There are diffuse degenerative changes of the visualized thoracic spine. Normal visualized ribs, clavicles, and shoulders. There is no demonstrated abnormality of the visualized soft tissue structures of the upper abdomen. RAD/Chest PA and Lateral IMPRESSION: No acute abnormality is seen. Electronically Signed: Venkat Reagan MD at 11:35 EST ,
== END | disposition home or self-care (01) ==
PROVIDERS: PCP Internal Medicine; Referring Provider Physician Assistant; Visit Provider Physician Assistant
DX: R05.9 Cough, unspecified (principal)
CPT/HCPCS: 71046

== ENCOUNTER → 2023-02-06 | Outpatient (CLI) | payer OTHER, SELFPAY ==
--- NOTE | 2023-02-06 10:34 | RAD_ITS ---
STUDY: X-RAY - RIGHT HAND REASON FOR EXAM: Female, 62 years old. r/o occult fx. Pain along the fourth and fifth metacarpal. TECHNIQUE: 2 view(s) of the hand. COMPARISON: None. FINDINGS: Normal radiocarpal articulation. Normal distal radioulnar joint. Normal visualized carpal bones. Normal carpal articulations Normal carpometacarpal articulation of the thumb. Normal second through fifth carpometacarpal joints. Normal metacarpi. Normal metacarpophalangeal joint of the thumb. Normal interphalangeal joint of the thumb. Normal proximal and distal phalanges of the thumb. Normal metacarpophalangeal joints of the second through fifth fingers. Normal proximal and distal interphalangeal joints of the second through fifth fingers. Normal phalanges of the second through fifth fingers. The soft tissue structures are unremarkable. RAD/Hand 2 Views IMPRESSION: Normal x-ray examination of the hand. Electronically Signed: Venkat Reagan MD at 11:49 EST ,
== END | disposition home or self-care (01) ==
PROVIDERS: PCP Internal Medicine; Referring Provider Physician Assistant; Visit Provider Physician Assistant
DX: S60.221A Contusion of right hand, initial encounter (principal); X58.XXXA Exposure to other specified factors, initial encounter
CPT/HCPCS: 73120

== ENCOUNTER 2023-03-26 15:00 | Outpatient (RCR) | payer OTHER, BC, SELFPAY ==
--- NOTE | 2023-03-01 16:24 | HP.OTEVAL ---
Patient's Visit Information Visit Information Visit Information: STEPHANIE KNIGHT is a 63 year old F, referred to Occupational Therapy by HELADIO Morrell, with a diagnosis of Right hand contusion. Date of Evaluation: 03/01/23 Occupational Therapist: Miya Bassett Subjective Subjective: Arrived for OT evaluation after a fall at work on Jan 21, injurying her right hand. Patient had x-rays of her hand, negative for fracture. Patient's work is covering this evaluation under workers comp. She is right hand dominant. Patient report said no lifting over 5 pounds. 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 ADLs Comments: Patient having difficulty using her right hand for daily living skills. She reports difficulty opening containers and having sensitivity in her hand like her sleeve rubbing over her hand Has to don gloves at work, reports this is hard and painful Lives with who can help her with things as needed. She reports she'd like to return to doing more at home like opening containers, cooking, cleaning, etc. Her is doing most of this now. Reports the pain impacts her sleep Pain R hand: Current Pain Intensity: 5 Pain Intensity Range: 10 ROM Shoulder: 100 deg R shoulder flexion (baseline from old rotator cuff tear) Elbow: R WNL Forearm: R WNL Wrist: R flexion 40 deg, extension 45 MP: R 100 IP: R 80 MP: 2-3rd 70, 4th 40, 5th 35 PIP: 2-3rd digit 80 flexion, 4th digit flexion 90, 5th digit 30 DIP: 2-3rd digit 70 flexion, 4th digit 45, 5th digit 50 ROM Comments: no pain or difficulty with R elbow or forearm increased pain with wrist/hand movements R hand able to extend fingers WNL no pain with R thumb movement Strength Case Reviewer: L 40# Lateral Pinch: L 6# Tripod Pinch: L 6# Tip-to-Tip Pinch: L 5# Sensation Sensation Comments: no tingling or numbness, patient hypersensitive in ulnar side of hand Quick DASH-Disab of Arm,Shoulder& Hand Quick DASH Score: 88.6350 Goals Goal:: Patient will imrpove fxnal strength of right hand evidenced by national secretary strength of 30# by d/c. Goal:: Patient will improve fxnal ROM of R hand for ADL tasks evidenced by improved active flexion of PIP and DIP digit 5 by 10 deg. Goal:: Patient will report decr pain to improve participation in ADL tasks by self-report of 3/10 or less for 3 consecutive visits. Goal:: Patient will improve ADL performance and fxn of R hand evidenced by quick dash score of 75 of less by d/c. Rehabilitation General Assessment: Patient arrived in pain in right hand after falling at work, resulting in a hand contusion. Patient having difficulty with ADL's as a result of the pain and demonstrates decreased range of motion in ulnar side of hand and digits 4-5. Patient would benefit from skilled OT services to decrease pain, improve ROM, and functional use of R hand. Patient may benefit from splint of right hand to wear when working/using hand and sleeping. Rehabilitation Potential: Good Anticipated Interventions Anticipated Interventions: A/AAROM/PROM, Strengthening, Massage, Triggerpoint Release, Desensitization, Modalities, Orthoses and Fine Motor Coord/Jaciel Visit Plan Frequency: 2x /Week Duration: 6 Weeks General Plan: provided HEP this date with gentle AROM of R hand, wrist, forearm Provided ice after evaluation as patient reported increase in pain to 7/10 after ROM measurements use of modalities, exercise/ROM, splinting to reduce pain and then progress to strengthening as pain decreases TEXT: Thank you for the opportunity to evaluate your patient. For Medicare and Medicare HMO plans, please review the plan of care and approve it. It will need to be FAXED BACK to us at [phone] for Medicare purposes. Please let me know if there are questions or concerns regarding this plan of care. Physician Signature: Date:
--- NOTE | 2023-03-14 16:15 | OTREVAL_ITS ---
Re-Evaluation Intro: HELADIO Morrell, It has been my pleasure to treat STEPHANIE KNIGHT over the last 4 visits for Right hand contusion. Please see the progress note below for an update on the occupational therapy plan of care! Subjective Subjective: pt arrives 7 weeks from fall sore at base of RF and LF at phalanx pt states discomfort with all ADLs and work tasks- Objective Objective/Function: Wrist: 50/45 right LF MCP 55 PIP 75 right RF MCP 50 PIP 65 pt has increase pain with palpation at base of 4th & 5th metacarpal Hamate/ pisiform region increase pain with US burning sensation and no ability to adduct LF pt may benefit from ortho consultation Plan Plan Frequency: 2x /Week Duration: 6 Weeks Visits in this POC: 2x week for 6 weeks Plan: due to limited gains and pain with US and palpation pt would benefit from further eval from ortho. Goals Goals Patient Goals: Decrease Pain, Improve Fine Motor Skills, Use Hand/Wrist/Arm Normally Again, Sleep Better, Increase ROM and Be More Independent in ADLS Goal:: Patient will imrpove fxnal strength of right hand evidenced by faculty administrator strength of 30# by d/c. Goal:: Patient will improve fxnal ROM of R hand for ADL tasks evidenced by improved active flexion of PIP and DIP digit 5 by 10 deg. Goal:: Patient will report decr pain to improve participation in ADL tasks by self-report of 3/10 or less for 3 consecutive visits. Goal:: Patient will improve ADL performance and fxn of R hand evidenced by quick dash score of 75 of less by d/c. Anticipated Interventions Anticipated Interventions Anticipated Interventions: A/AAROM/PROM, Strengthening, Massage, Triggerpoint Release, Desensitization, Modalities, Orthoses and Fine Motor Coord/Jaciel Re-Evaluation Ending Re-evaluation ending: Please do not hesitate to contact me at [phone] by phone or if you have questions or concerns regarding this new plan of care! Sincerely, Arlene Hart OTR/L, CHT
--- NOTE | 2023-09-18 08:20 | HP.OT.NRP ---
Patient Information Patient Information: STEPHANIE KNIGHT was seen in my office for initial evaluation on 03/01/23. The following Plan of Care was established for this patient: POC Established Initial Frequency: 2x /Week Initial Duration: 6 Weeks Plan: due to limited gains and pain with US and palpation pt would benefit from further eval from ortho. Anticipated Interventions Anticipated Interventions: A/AAROM/PROM, Strengthening, Massage, Triggerpoint Release, Desensitization, Modalities, Orthoses and Fine Motor Coord/Jaciel Last Seen Last Seen: This patient was last seen in our office 03/26/23. Pertinent comments regarding their Occupational therapy will appear below: patient seen for 7 visits for R hand contusion. Patient cont to be in pain/sore to touch and was recommended to follow up with ortho for further work up. Patient discharged from OT. At this point I will be discontinuing this patient from occupational therapy. I would be happy to see this patient again in the future if found appropriate by the physician. Thank you! Miya Bassett
== END 2023-03-26 19:00 | disposition home or self-care (01) ==
LOC: OT 15:00
PROVIDERS: PCP Internal Medicine; Referring Provider Physician Assistant; Visit Provider Physician Assistant
DX: S60.221D Contusion of right hand, subsequent encounter (principal)
CPT/HCPCS: 97035; 97110; 97140; 97165; 97530

== ENCOUNTER → 2023-04-09 | Outpatient (CLI) | payer OTHER, SELFPAY ==
--- NOTE | 2023-04-09 17:53 | CT_ITS ---
STUDY: CT SCAN AND RIGHT REASON FOR EXAM: Female, 63 years old. Right hand pain RADIATION DOSAGE (If Supplied By Facility): CTDIvol = ( 24.58 ) mGy, DLP = ( 917.08 ) mGycm. Individualized dose optimization techniques were used for this CT.? TECHNIQUE: Multiple axial tomographic images were obtained following intravenous administration of 100 cc of Isovue-370. Coronal and sagittal reconstruction was obtained as well. COMPARISON: None. FINDINGS: There is good alignment. No evidence of fracture or dislocation. No soft tissue masses seen. CT/Extremity Upper WITH Contrast IMPRESSION: Unremarkable examination. Electronically Signed: Venkat Reagan MD at 9:59 EST ,
--- OUTSIDE RECORDS SUMMARY | 2023-04-09 20:45 | XMS RPT_ITS | CCD ---
Author Name Unknown Address [address] [place] [address] Organization [facility] Care Team Providers Care Patient Access Representative Name Role Phone Anuj Hanson MD Primary Care Provider [phone] Enio Myers PA-C Unavailable [phone] Anuj Hanson MD Primary Care Provider 13, Pharmacist Unavailable Anuj Hanson MD Primary Care Provider 13, Pharmacist Unavailable 13, Pharmacist Unavailable Anuj Hanson MD Primary Care Provider [phone] 13, Pharmacist Unavailable Anuj Hanson MD Primary Care Provider 13, Pharmacist Unavailable CODEY DIALLOEL Attending Unavailable GANTA, ANUJ Primary Care Unavailable TAINA, ADAMA Attending Unavailable GANTA, ANUJ Primary Care Unavailable TAINA, ADAMA Attending Unavailable GANTA, ANUJ Primary Care Unavailable TAINA, ADAMA Attending Unavailable GANTA, ANUJ Primary Care Unavailable TAINA, ADAMA Attending Unavailable GANTA, ANUJ Primary Care Unavailable TIANA, ADAMA Attending Unavailable GANTA, ANUJ Primary Care Unavailable TAINA, ADAMA Attending Unavailable GANTA, ANUJ Primary Care Unavailable TAINA, ADAMA Attending Unavailable GANTA, ANUJ Primary Care Unavailable OLDER, TRACY Attending Unavailable GANTA, ANUJ Primary Care Unavailable OLDER, TRACY Attending Unavailable GANTA, ANUJ Primary Care Unavailable AMBER SAVAGE Attending Unavailable GANTA, ANUJ Primary Care Unavailable GANTA, ANUJ Primary Care Unavailable MAGALYSDAKSHA GARRISON Referring Unavailable GANTA, ANUJ Primary Care Unavailable JEYSON KRISHNAMURTHY Attending Unavailable GANTA, ANUJ Primary Care Unavailable OLDER, TRACY Referring Unavailable GANTA, ANUJ Primary Care Unavailable OLDER, TRACY Attending Unavailable GANTA, ANUJ Primary Care Unavailable OLDER, TRACY Attending Unavailable GANTA, ANUJ Primary Care Unavailable GANTA, ANUJ Primary Care Unavailable GANTA, ANUJ Referring Unavailable OLDER, TRACY Attending Unavailable GANTA, ANUJ Primary Care Unavailable OLDER, TRACY Referring Unavailable GANTA, ANUJ Primary Care Unavailable Allergies Allergy Classification Reported Allergen(s) Allergy Type Date of Onset Reaction(s) Facility Opioid Agonists (1 source) Propoxyphene Drug Allergy 10-01-19 [facility] Pentazocine (1 source) Pentazocine Drug Allergy 10-01-19 18 [facility] (1 source) Acetaminophen / HYDROcodone Drug Allergy 06-17-19 [facility] Work Phone: (1 source) Acetaminophen / Pentazocine Drug Allergy 06-17-19 [facility] Work Phone: (1 source) Acetaminophen / Propoxyphene Drug Allergy 06-17-19 [facility] Work Phone: (1 source) Morphine Drug Allergy 06-17-19 [facility] Work Phone: (1 source) Pentazocine Drug Allergy 06-17-19 [facility] Work Phone: (20 sources) Pentazocine; Translations: [PENTAZOCINE] Drug Allergy 08-30-19 [facility] Work Phone: (1 source) PAPER TAPE drug allergy 06-17-19 [facility] Work Phone: (1 source) STERI STRIPS; Translations: [STERI STRIPS] food allergy 06-17-19 [facility] Work Phone: (20 sources) Acetaminophen / Pentazocine; Translations: [PENTAZOCINE-ACET AMINOPHEN] Drug Allergy 08-21-19 06 Mental Status Change [facility] Work Phone: (20 sources) Morphinan opioid; Translations: [OPIOIDS - MORPHINE ANALOGUES] Propensity to adverse reactions 08-30-19 [facility] Work Phone: (20 sources) Propoxyphene; Translations: [PROPOXYPHENE] Drug Allergy 08-30-19 [facility] Work Phone: (20 sources) steri strips and paper tape [Other] Propensity to adverse reactions 12-31-19 [facility] Work Phone: (20 sources) Acetaminophen / HYDROcodone; Translations: [HYDROCODONE-ACET AMINOPHEN] Drug Allergy 05-28-19 Unknown [facility] (2 sources) OTHER; Translations: [OTHER] Propensity to adverse reactions (disorder) 12-31-19 [facility] Medications Current Medications Medication Drug Class(es) Dates Sig (Normalized) Sig (Original) acetaminophen 325 mg / oxyCODONE hydrochloride 5 mg oral tablet (20 sources) Opioid Agonist Start: 02-25-2023 End: 03-27-2023 oxyCODONE-acetamin ophen (PERCOCET) 5-325 mg tablet Indications: Complex regional pain syndrome type 1 of right lower extremity Take 1 tablet by mouth every 8 hours as needed for pain for up to 30 days. Do not start before February 25, 2023. 90 tablet 0 02/25/2023 03/27/2023 Active Completed/Discontinued Medications Medication Drug Class(es) Dates Sig (Normalized) Sig (Original) [id number] 200 actuat albuterol 0.09 mg/actuat metered dose inhaler (20 sources) beta2-Adrenergic Agonist Start: 06-19-2022 take 2 puff(s) by inhalation every four hours as needed albuterol HFA (PROVENTIL HFA, VENTOLIN HFA) 90 mcg/actuation inhaler Indications: Acute cough , Acute URI Inhale 2 Puffs as instructed every 4 hours as needed. 1 Each 1 06/19/2022 Active Problems Active Problems Problem Classification Problem Date Documented Da te Episodic/Chronic Acute cerebrovascular disease (20 sources) Cerebrovascular accident; Translations: [Cerebral infarction, unspecified] Onset: 09-30-2017 09-30-2017 Chronic Anxiety disorders (1 source) Anxiety; Translations: [Anxiety disorder, unspecified] Onset: 09-30-2017 09-30-2017 Chronic Coagulation and hemorrhagic disorders (20 sources) Heterozygous Factor V Leiden mutation; Translations: [Activated protein C resistance] Onset: 10-01-2017 10-01-2017 Chronic Conditions associated with dizziness or vertigo (1 source) Benign paroxysmal positional vertigo; Translations: [Benign paroxysmal vertigo, left ear] Episodic Disorders of lipid metabolism (19 sources) Mixed hyperlipidemia; Translations: [Mixed hyperlipidemia] Onset: 07-13-2022 Chronic Esophageal disorders (1 source) Gastro-esophageal reflux disease without esophagitis; Translations: [Gastroesophageal reflux disease without esophagitis] Onset: 01-02-2023 Chronic Essential hypertension (18 sources) Essential hypertension; Translations: [Essential (primary) hypertension] Onset: 07-13-2022 07-13-2022 Chronic Glaucoma (20 sources) Acute angle-closure glaucoma of left eye; Translations: [Acute angle-closure glaucoma, left eye] Onset: 02-13-2018 02-14-2018 Chronic Mood disorders (20 sources) Dysthymia; Translations: [Dysthymic disorder] Onset: 04-11-2005 08-15-2018 Chronic Nutritional deficiencies (1 source) Vitamin D deficiency, unspecified; Translations: [Vitamin D deficiency] Onset: 07-11-2022 Chronic Occlusion or stenosis of precerebral arteries (20 sources) Internal carotid artery stenosis; Translations: [Occlusion and stenosis of right carotid artery] Onset: 01-03-2018 02-14-2018 Chronic Osteoarthritis (20 sources) Arthropathy of joint of hand; Translations: [Primary osteoarthritis, unspecified hand] Onset: 09-23-2014 09-23-2014 Chronic Other aftercare (1 source) Taking high risk medication; Translations: [Other supervisor intermediates (current) drug therapy] Episodic Other aftercare (1 source) Anticoagulant effect; Translations: [residential (current) use of anticoagulants] Episodic Other and ill-defined cerebrovascular disease (6 sources) Cerebrovascular disease; Translations: [Cerebrovascular disease, unspecified] Chronic Other and ill-defined cerebrovascular disease (1 source) Cerebrovascular disease, unspecified; Translations: [Cerebral vascular disorder] Onset: 02-01-2023 Chronic Other circulatory disease (20 sources) Isolated angiitis of central nervous system; Translations: [Arteritis, unspecified] Onset: 01-03-2018 06-28-2018 Chronic Other circulatory disease (1 source) Raynaud's disease; Translations: [Raynaud's syndrome without gangrene] Chronic Other circulatory disease (1 source) Vascular disorder; Translations: [Unspecified disorder of circulatory system] Episodic Other connective tissue disease (1 source) Spasm; Translations: [Other muscle spasm] Episodic Other connective tissue disease (1 source) Pain in left foot; Translations: [Left foot pain] Onset: 01-03-2023 Episodic Other injuries and conditions due to external causes (1 source) Muscle strain; Translations: [Other injury of unspecified body region, initial encounter] Episodic Other lower respiratory disease (3 sources) Cough; Translations: [Acute cough] Episodic Other lower respiratory disease (1 source) Wheezing; Translations: [Wheezing] Episodic Other nervous system disorders (1 source) Chronic pain; Translations: [Other chronic pain] Onset: 09-30-2017 09-30-2017 Chronic Other nervous system disorders (20 sources) Complex regional pain syndrome of lower limb; Translations: [Complex regional pain syndrome I of unspecified lower limb] Onset: 08-30-2000 10-01-2017 Chronic Other nervous system disorders (20 sources) Complex regional pain syndrome type I of right lower limb; Translations: [Complex regional pain syndrome I of right lower limb] Onset: 08-30-2000 Chronic Other nervous system disorders (20 sources) Chronic pain syndrome; Translations: [Chronic pain syndrome] Onset: 05-09-2022 Chronic Other nervous system disorders (1 source) Chronic pain syndrome; Translations: [Chronic pain syndrome] Onset: 05-09-2022 Chronic Other nervous system disorders (1 source) Complex regional pain syndrome I of right lower limb; Translations: [Complex regional pain syndrome type 1 of right lower extremity] Onset: 09-25-2021 Chronic Other nervous system disorders (1 source) Other chronic pain; Translations: [Bilateral chronic knee pain] Onset: 01-03-2023 Chronic Other non-traumatic joint disorders (1 source) Pain in right knee; Translations: [Bilateral chronic knee pain] Onset: 01-03-2023 Episodic Other non-traumatic joint disorders (1 source) Pain in left knee; Translations: [Bilateral chronic knee pain] Onset: 01-03-2023 Episodic Other nutritional; endocrine; and metabolic disorders (20 sources) Obese class II; Translations: [Obesity, unspecified] Onset: 11-20-2017 02-14-2018 Chronic Phlebitis; thrombophlebitis and thromboembolism (1 source) Deep venous thrombosis; Translations: [Acute embolism and thrombosis of unspecified deep veins of unspecified lower extremity] 10-01-2017 Episodic Residual codes; unclassified (1 source) H/O Spinal surgery; Translations: [Presence of other specified functional implants] Onset: 06-16-2020 06-16-2020 Chronic Residual codes; unclassified (1 source) Obstructive sleep apnea syndrome; Translations: [Obstructive sleep apnea (adult) (pediatric)] Chronic Residual codes; unclassified (1 source) Livedo reticularis; Translations: [Pallor] Episodic Transient cerebral ischemia (20 sources) Transient cerebral ischemia; Translations: [Transient cerebral ischemic attack, unspecified] Onset: 02-12-2018 02-14-2018 Chronic Unclassified (1 source) Recheck Onset: 10-03-2022 Unclassified (1 source) Acute cough; Translations: [Acute cough] Onset: 06-19-2022 Past or Other Problems Problem Classification Problem Date Documented Date Episodic/Chronic Cardiac dysrhythmias (20 sources) Sinus bradycardia; Translations: [Bradycardia, unspecified] Onset: 02-13-2018 02-14-2018 Episodic Diabetes mellitus without complication (2 sources) Increased glucose level; Translations: [Other abnormal glucose] Onset: 08-22-2022 Episodic Fluid and electrolyte disorders (20 sources) Hypokalemia; Translations: [Hypokalemia] Onset: 08-15-2018 08-15-2018 Episodic Immunizations and screening for infectious disease (20 sources) Autoantibody level - finding; Translations: [Raised antibody titer] Onset: 10-11-2017 02-14-2018 Episodic Malaise and fatigue (2 sources) Fatigue; Translations: [Other fatigue] Onset: 07-11-2022 Episodic Nausea and vomiting (20 sources) Postoperative nausea and vomiting; Translations: [Nausea with vomiting, unspecified] Onset: 08-15-2018 08-15-2018 Episodic Other aftercare (20 sources) Long-term current use of anticoagulant; Translations: [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] Onset: 12-29-2018 12-29-2018 Episodic Other aftercare (20 sources) Long-term current use of opiate analgesic drug; Translations: [terminal supervisor (current) use of opiate analgesic] Onset: 01-31-2018 09-16-2021 Episodic Other aftercare (2 sources) terminal supervisor (current) use of opiate analgesic; Translations: [terminal supervisor (current) use of opiate analgesic] Onset: 09-16-2021 Episodic Other aftercare (1 source) 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; Translations: [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] Onset: 12-29-2018 Episodic Other circulatory disease (1 source) History of cerebrovascular accident; Translations: [Personal history of transient ischemic attack (TIA), and cerebral infarction without residual deficits] Onset: 06-16-2020 06-16-2020 Episodic Other connective tissue disease (1 source) Disorder of rotator cuff; Translations: [Unspecified rotator cuff tear or rupture of right shoulder, not specified as traumatic] Onset: 08-22-2020 08-22-2020 Episodic Other connective tissue disease (1 source) Impingement syndrome of shoulder region; Translations: [Impingement syndrome of right shoulder] Onset: 06-16-2020 06-16-2020 Episodic Other connective tissue disease (20 sources) Tenosynovitis of left radial styloid; Translations: [Radial styloid tenosynovitis [de Quervain]] Onset: 08-24-2014 08-24-2014 Episodic Other connective tissue disease (20 sources) Pain in thumb ; Translations: [Pain in unspecified finger(s)] Onset: 03-08-2016 03-08-2016 Episodic Other connective tissue disease (20 sources) Plantar fasciitis; Translations: [Plantar fascial fibromatosis] Onset: 05-27-2017 09-16-2021 Episodic Other connective tissue disease (1 source) Plantar fascial fibromatosis; Translations: [Plantar fasciitis] Onset: 09-16-2021 Episodic Other lower respiratory disease (1 source) Wheezing; Translations: [Wheezing] Onset: 06-19-2022 Episodic Other screening for suspected conditions (not mental disorders or infectious disease) (4 sources) Patient encounter status; Translations: [Encounter for screening mammogram for malignant neoplasm of breast] Onset: 09-07-2022 Episodic Other skin disorders (1 source) Nonscarring hair loss, unspecified; Translations: [Hair loss] Onset: 07-11-2022 Episodic Other upper respiratory infections (4 sources) Acute upper respiratory infection; Translations: [Acute upper respiratory infection, unspecified] Onset: 06-19-2022 Episodic Residual codes; unclassified (1 source) Other general symptoms and signs; Translations: [Intolerance to heat] Onset: 07-11-2022 Episodic Unclassified (1 source) Problem Results Test Name Value Interpretation Reference Range Facil ity Vital Signs Date Time Vital Sign Value Performing Clinician Facility 01-09-2023 16:28-0500 Body height 165.1 cm Adama Diallo MD Work Phone: [facility] 01-09-2023 16:28-0500 Body temperature 97.5 [degF] Adama Diallo MD Work Phone: [facility] 01-09-2023 16:28-0500 Body weight 106.59 kg Adama Diallo MD Work Phone: [facility] 01-09-2023 16:28-0500 Diastolic blood pressure 85 mm[Hg] Adama Diallo MD Work Phone: [facility] 01-09-2023 16:28-0500 Heart rate 56 /min Adama Diallo MD Work Phone: [facility] 01-09-2023 16:28-0500 Respiratory rate 20 /min Adama Diallo MD Work Phone: [facility] 01-09-2023 16:28-0500 SaO2% (BldA) [Mass fraction] 98 % Adama Diallo MD Work Phone: [facility] 01-09-2023 16:28-0500 Systolic blood pressure 146 mm[Hg] Adama Diallo MD Work Phone: [facility] 10-03-2022 16:23-0400 Body weight 105.69 kg Tracy Paige APRN.CNP Work Phone: [facility] 10-03-2022 16:23-0400 Diastolic blood pressure 68 mm[Hg] Tracy Older FARM MANAGEMENT SUPERVISOR.MENTAL HYGIENIST Work Phone: [facility] 10-03-2022 16:23-0400 Heart rate 56 /min Tracy Older FARM MANAGEMENT SUPERVISOR.MENTAL HYGIENIST Work Phone: [facility] 10-03-2022 16:23-0400 Respiratory rate 16 /min Tracy Older FARM MANAGEMENT SUPERVISOR.MENTAL HYGIENIST Work Phone: [facility] 10-03-2022 16:23-0400 Systolic blood pressure 124 mm[Hg] Tracy Older FARM MANAGEMENT SUPERVISOR.MENTAL HYGIENIST Work Phone: [facility] 09-24-2022 16:33-0400 Body height 165.1 cm Adama Diallo MD Work Phone: [facility] 09-24-2022 16:33-0400 Body temperature 97.59 [degF] Adama Diallo MD Work Phone: [facility] 09-24-2022 16:33-0400 Body weight 104.33 kg Adama Diallo MD Work Phone: [facility] 09-24-2022 16:33-0400 Diastolic blood pressure 60 mm[Hg] Adama Diallo MD Work Phone: [facility] 09-24-2022 16:33-0400 Heart rate 56 /min Adama Diallo MD Work Phone: [facility] 09-24-2022 16:33-0400 Respiratory rate 18 /min Adama Diallo MD Work Phone: [facility] 09-24-2022 16:33-0400 SaO2% (BldA) [Mass fraction] 97 % Adama Diallo MD Work Phone: [facility] 09-24-2022 16:33-0400 Systolic blood pressure 132 mm[Hg] Adama Diallo MD Work Phone: [facility] 08-22-2022 15:11-0400 Body weight 108.23 kg Tracy Older FARM MANAGEMENT SUPERVISOR.MENTAL HYGIENIST Work Phone: [facility] 08-22-2022 15:11-0400 Diastolic blood pressure 64 mm[Hg] Tracy Older FARM MANAGEMENT SUPERVISOR.MENTAL HYGIENIST Work Phone: [facility] 08-22-2022 15:11-0400 Heart rate 62 /min Tracy Older FARM MANAGEMENT SUPERVISOR.MENTAL HYGIENIST Work Phone: [facility] 08-22-2022 15:11-0400 Respiratory rate 16 /min Tracy Older FARM MANAGEMENT SUPERVISOR.MENTAL HYGIENIST Work Phone: [facility] 08-22-2022 15:11-0400 Systolic blood pressure 122 mm[Hg] Tracy Older FARM MANAGEMENT SUPERVISOR.MENTAL HYGIENIST Work Phone: [facility] 06-20-2022 16:24-0400 Diastolic blood pressure 60 mm[Hg] Adama Diallo MD Work Phone: [facility] 06-20-2022 16:24-0400 Heart rate 50 /min Adama Diallo MD Work Phone: [facility] 06-20-2022 16:24-0400 Systolic blood pressure 135 mm[Hg] Adama Diallo MD Work Phone: [facility] 06-20-2022 16:18-0400 Body height 165.1 cm Adama Diallo MD Work Phone: [facility] 06-20-2022 16:18-0400 Body temperature 97.3 [degF] Adama Diallo MD Work Phone: [facility] 06-20-2022 16:18-0400 Body weight 110.68 kg Adama Diallo MD Work Phone: [facility] 06-20-2022 16:18-0400 Respiratory rate 20 /min Adama Diallo MD Work Phone: [facility] 06-20-2022 16:18-0400 SaO2% (BldA) [Mass fraction] 96 % Adama Diallo MD Work Phone: [facility] 06-19-2022 14:19-0400 Body weight 110.68 kg Amber Savage FARM MANAGEMENT SUPERVISOR.GUMMED TAPE PRESS OPERATOR Work Phone: [facility] 06-19-2022 14:19-0400 Diastolic blood pressure 70 mm[Hg] Amber Savage FARM MANAGEMENT SUPERVISOR.GUMMED TAPE PRESS OPERATOR Work Phone: [facility] 06-19-2022 14:19-0400 Heart rate 64 /min Amber Savage FARM MANAGEMENT SUPERVISOR.GUMMED TAPE PRESS OPERATOR Work Phone: [facility] 06-19-2022 14:19-0400 Respiratory rate 16 /min Amber Savage FARM MANAGEMENT SUPERVISOR.GUMMED TAPE PRESS OPERATOR Work Phone: [facility] 06-19-2022 14:19-0400 SaO2% (BldA) [Mass fraction] 99 % Amber Savage FARM MANAGEMENT SUPERVISOR.GUMMED TAPE PRESS OPERATOR Work Phone: [facility] 06-19-2022 14:19-0400 Systolic blood pressure 130 mm[Hg] Amber Savage FARM MANAGEMENT SUPERVISOR.GUMMED TAPE PRESS OPERATOR Work Phone: [facility] 05-09-2022 15:58-0400 Body height 165.1 cm Adama Diallo MD Work Phone: [facility] 05-09-2022 15:58-0400 Body temperature 97.7 [degF] Adama Diallo MD Work Phone: [facility] 05-09-2022 15:58-0400 Body weight 102.06 kg Adama Diallo MD Work Phone: [facility] 05-09-2022 15:58-0400 Diastolic blood pressure 63 mm[Hg] Adama Diallo MD Work Phone: [facility] 05-09-2022 15:58-0400 Heart rate 56 /min Adama Diallo MD Work Phone: [facility] 05-09-2022 15:58-0400 Respiratory rate 20 /min Adama Diallo MD Work Phone: [facility] 05-09-2022 15:58-0400 SaO2% (BldA) [Mass fraction] 97 % Adama Diallo MD Work Phone: [facility] 05-09-2022 15:58-0400 Systolic blood pressure 135 mm[Hg] Adama Diallo MD Work Phone: [facility] 03-28-2022 16:11-0500 Diastolic blood pressure 73 mm[Hg] Adama Diallo MD Work Phone: [facility] 03-28-2022 16:11-0500 Heart rate 55 /min Adama Diallo MD Work Phone: [facility] 03-28-2022 16:11-0500 Systolic blood pressure 160 mm[Hg] Adama Diallo MD Work Phone: [facility] 03-28-2022 16:06-0500 Body height 165.1 cm Adama Diallo MD Work Phone: [facility] 03-28-2022 16:06-0500 Body temperature 97.81 [degF] Adama Diallo MD Work Phone: [facility] 03-28-2022 16:06-0500 Body weight 102.51 kg Adama Diallo MD Work Phone: [facility] 03-28-2022 16:06-0500 Respiratory rate 20 /min Adama Diallo MD Work Phone: [facility] 03-28-2022 16:06-0500 SaO2% (BldA) [Mass fraction] 98 % Adama Diallo MD Work Phone: [facility] 03-05-2022 13:50-0500 Body weight 110.22 kg Ambre Savage FARM MANAGEMENT SUPERVISOR.GUMMED TAPE PRESS OPERATOR Work Phone: [facility] 03-05-2022 13:50-0500 Diastolic blood pressure 76 mm[Hg] Amber Savage FARM MANAGEMENT SUPERVISOR.GUMMED TAPE PRESS OPERATOR Work Phone: [facility] 03-05-2022 13:50-0500 Heart rate 61 /min Amber Savage FARM MANAGEMENT SUPERVISOR.GUMMED TAPE PRESS OPERATOR Work Phone: [facility] 03-05-2022 13:50-0500 SaO2% (BldA) [Mass fraction] 97 % Amber Savage FARM MANAGEMENT SUPERVISOR.GUMMED TAPE PRESS OPERATOR Work Phone: [facility] 03-05-2022 13:50-0500 Systolic blood pressure 122 mm[Hg] Amber Savage FARM MANAGEMENT SUPERVISOR.GUMMED TAPE PRESS OPERATOR Work Phone: [facility] 02-14-2022 15:49-0500 Body height 165.1 cm Adama Diallo MD Work Phone: [facility] 02-14-2022 15:49-0500 Body temperature 97.59 [degF] Adama Diallo MD Work Phone: [facility] 02-14-2022 15:49-0500 Body weight 108.86 kg Adama Diallo MD Work Phone: [facility] 02-14-2022 15:49-0500 Diastolic blood pressure 64 mm[Hg] Adama Diallo MD Work Phone: [facility] 02-14-2022 15:49-0500 Heart rate 61 /min Adama Diallo MD Work Phone: [facility] 02-14-2022 15:49-0500 Respiratory rate 20 /min Adama Diallo MD Work Phone: [facility] 02-14-2022 15:49-0500 SaO2% (BldA) [Mass fraction] 99 % Adama Diallo MD Work Phone: [facility] 02-14-2022 15:49-0500 Systolic blood pressure 139 mm[Hg] Adama Diallo MD Work Phone: [facility] 01-03-2022 16:04-0500 Body height 165.1 cm Adama Diallo MD Work Phone: [facility] 01-03-2022 16:04-0500 Body temperature 96.8 [degF] Adama Diallo MD Work Phone: [facility] 01-03-2022 16:04-0500 Body weight 102.06 kg Adama Diallo MD Work Phone: [facility] 01-03-2022 16:04-0500 Diastolic blood pressure 73 mm[Hg] Adama Diallo MD Work Phone: [facility] 01-03-2022 16:04-0500 Heart rate 50 /min Adama Diallo MD Work Phone: [facility] 01-03-2022 16:04-0500 Respiratory rate 20 /min Adama Diallo MD Work Phone: [facility] 01-03-2022 16:04-0500 SaO2% (BldA) [Mass fraction] 98 % Adama Diallo MD Work Phone: [facility] 01-03-2022 16:04-0500 Systolic blood pressure 133 mm[Hg] Adama Diallo MD Work Phone: [facility] 12-06-2021 12:57-0400 Body weight 112.49 kg Tracy Older FARM MANAGEMENT SUPERVISOR.MENTAL HYGIENIST Work Phone: [facility] 12-06-2021 12:57-0400 Diastolic blood pressure 76 mm[Hg] Tracy Older FARM MANAGEMENT SUPERVISOR.MENTAL HYGIENIST Work Phone: [facility] 12-06-2021 12:57-0400 Heart rate 64 /min Tracy Older FARM MANAGEMENT SUPERVISOR.MENTAL HYGIENIST Work Phone: [facility] 12-06-2021 12:57-0400 Respiratory rate 16 /min Tracy Older FARM MANAGEMENT SUPERVISOR.MENTAL HYGIENIST Work Phone: [facility] 12-06-2021 12:57-0400 Systolic blood pressure 140 mm[Hg] Tracy Older FARM MANAGEMENT SUPERVISOR.MENTAL HYGIENIST Work Phone: [facility] 11-16-2021 10:55-0400 Body temperature 96.91 [degF] Daksha Krishnamurthy MD Work Phone: [facility] 11-16-2021 10:55-0400 Body weight 111.9 kg Daksha Krishnamurthy MD Work Phone: [facility] 11-16-2021 10:55-0400 Diastolic blood pressure 50 mm[Hg] Daksha Krishnamurthy MD Work Phone: [facility] 11-16-2021 10:55-0400 Heart rate 63 /min Daksha Krishnamurthy MD Work Phone: [facility] 11-16-2021 10:55-0400 Systolic blood pressure 121 mm[Hg] Daksha Krishnamurthy MD Work Phone: [facility] 11-16-2021 08:46-0400 Body height 165.1 cm Sourav Kirk DO Work Phone: [facility] 11-16-2021 08:46-0400 Body temperature 96.91 [degF] Sourav Kirk DO Work Phone: [facility] 11-16-2021 08:46-0400 Body weight 109.91 kg Sourav Kirk DO Work Phone: [facility] 11-16-2021 08:46-0400 Diastolic blood pressure 50 mm[Hg] Sourav Kirk DO Work Phone: [facility] 11-16-2021 08:46-0400 Heart rate 63 /min Sourav Kirk DO Work Phone: [facility] 11-16-2021 08:46-0400 Respiratory rate 14 /min Sourav Kirk DO Work Phone: [facility] 11-16-2021 08:46-0400 SaO2% (BldA) [Mass fraction] 99 % Sourav Kirk DO Work Phone: [facility] 11-16-2021 08:46-0400 Systolic blood pressure 121 mm[Hg] Sourav Kirk DO Work Phone: [facility] 11-15-2021 15:45-0400 Body temperature 97.39 [degF] Adama Diallo MD Work Phone: [facility] 11-15-2021 15:45-0400 Diastolic blood pressure 67 mm[Hg] Adama Diallo MD Work Phone: [facility] 11-15-2021 15:45-0400 Heart rate 62 /min Adama Diallo MD Work Phone: [facility] 11-15-2021 15:45-0400 Respiratory rate 18 /min Adama Diallo MD Work Phone: [facility] 11-15-2021 15:45-0400 SaO2% (BldA) [Mass fraction] 99 % Adama Diallo MD Work Phone: [facility] 11-15-2021 15:45-0400 Systolic blood pressure 133 mm[Hg] Adama Diallo MD Work Phone: [facility] NEGATED: Highlighted [id number] 11:20-0400 Body height 165.1 cm Sally Monico AT [facility] Work Phone: NEGATED: Highlighted [id number] 11:20-0400 Body height 165 cm Sally Monico AT [facility] Work Phone: NEGATED: Highlighted [id number] 11:20-0400 Body mass index (BMI) [Ratio] 38.08 kg/m2 Sally Monico AT [facility] Work Phone: NEGATED: Highlighted [id number] 11:20-0400 Body weight 103.42 kg Sally Monico AT [facility] Work Phone: NEGATED: Highlighted [id number] 11:20-0400 Body weight 104 kg Sally Monico AT [facility] Work Phone: Encounters Encounter Date Encounter Type Care Provider Facility Start: 03-06-2023 End: 03-07-2023 [facility] ADAMA DIALLO Facility:[id number] Start: 02-13-2023 Refill Cristofer ley PA-C Work Phone: Pain Management Procedures Date Procedure Procedure Detail Performing Clinician Start: 09-07-2022 End: 09-07-2022 Mammography Bulk Order Provider Start: 09-04-2022 Prothrombin time [facility] Pr ovider Start: 08-22-2022 Hemoglobin A1c/Hemoglobin.total in Blood Tracy Grecia FARM 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 SUPERVISOR.MENTAL HYGIENIST Work Phone: Start: 07-14-2022 Lipid 1996 panel - S brandon or Plasma Anuj Hanson MD Work Phone: Start: 05-10-2022 Prothrombin time [facility] Pr ovider Start: 06-29-2021 Ct angiography head w/contrast/noncontrast Daksha Krishnamurthy MD Work Phone: Start: 06-29-2021 Ct angiography neck w/contrast/noncontrast Daksha Krishnamurthy MD Work Phone: Start: 06-16-2021 End: 06-16-2021 Screening mammography bi 2-view breast inc cad Bulk Order Provider Start: 05-30-2021 Prothrombin time [facility] Pr ovider Start: 05-23-2021 End: 05-23-2021 BP scrn no perf at interval Enio Myers PA-C Work Phone: Start: 05-23-2021 End: 05-23-2021 Calc BMI abv up edwin f/u Enio Myers PA-C Work Phone: Start: 05-23-2021 End: 05-23-2021 Current tobacco non-user cad cap copd pv dm Enio Myers PA-C Work Phone: Start: 05-23-2021 End: 05-23-2021 Docrev cur meds by elig clin Enio Myers PA-C Work Phone: Start: 05-23-2021 End: 05-23-2021 Pain doc pos and plan Enio Myers PA-C Work Phone: Start: 05-23-2021 End: 05-23-2021 Patient encounter procedure Enio Myers PA-C Work Phone: Start: 09-07-2020 Ct upper extremity w/contrast material Sherman Beard MD Work Phone: Start: 09-07-2020 Arthrocentesis aspir&/inj major jt/bursa w/o us Sherman Beard MD Work Phone: Start: 03-15-2020 Mammography Adele Menon [facility] Start: 08-27-2018 Colonoscopy Adele Hernannadiya [facility] Laboratory test resu lt abnormal Serologic abnormality Daksha Krishnamurthy MD Work Phone: NEGATED: Highlighted rowStart: 05-23-2021 End: 05-23-2021 Documentation of current medications Sally MOORE Plan of Treatment Date Care Activity Detail Author Start: 09-16-2031 Urine microalbumin profile [facility] Start: 07-15-2027 Lipid 1996 panel - S brandon or Plasma Lipid Screening [facility] Start: 07-15-2027 Lipid panel Lipid Screening [facility] Start: 07-15-2027 LIPID SCREEN LIPID SCREEN [facility] Start: 08-22-2025 DIABETES SCREEN DIABETES SCREEN [facility] Start: 08-22-2025 Diabetes Screening Diabetes Screenin g [facility] Start: 07-14-2025 DIABETES SCREEN DIABETES SCREEN [facility] Start: 03-28-2025 DIABETES SCREEN DIABETES SCREEN [facility] Start: 03-19-2025 LIPID SCREEN LIPID SCREEN [facility] Start: 11-20-2024 DIABETES SCREEN DIABETES SCREEN [facility] Start: 06-15-2024 DIABETES SCREEN DIABETES SCREEN [facility] Start: 01-03-2024 Annual PCP Team Gas Fitter Apprentice joe Disease Visit Annual PCP Team Chronic Disease Visit [facility] Start: 10-04-2023 ANNUAL PCP TEAM PLASTIC SHEETS SUPERVISOR JOE DISEASE VISIT ANNUAL PCP TEAM CHRONIC DISEASE VISIT [facility] Start: 10-04-2023 BP CONTROLLED (<130/80) BP CONTROLLE D (<130/80) [facility] Start: 09-08-2023 Mammography [facility] Start: 09-08-2023 Screening for malign ant neoplasm of breast Mammogram Screening [facility] Start: 08-28-2023 Colonoscopy COLONOSCOPY [facility] Start: 08-28-2023 COLORECTAL CANCER SCREENING COLORECTAL CANCER SCREENING [facility] Start: 08-28-2023 Screening for malign ant neoplasm of colon [facility] Start: 08-23-2023 ANNUAL PCP TEAM PLASTIC SHEETS SUPERVISOR JOE DISEASE VISIT ANNUAL PCP TEAM CHRONIC DISEASE VISIT [facility] Start: 08-23-2023 BP CONTROLLED (<130/80) BP CONTROLLE D (<130/80) [facility] Start: 07-12-2023 ANNUAL PCP TEAM PLASTIC SHEETS SUPERVISOR JOE DISEASE VISIT ANNUAL PCP TEAM CHRONIC DISEASE VISIT [facility] Start: 07-12-2023 BP CONTROLLED (<130/80) BP CONTROLLE D (<130/80) [facility] Start: 03-19-2023 DIABETES SCREEN DIABETES SCREEN [facility] Start: 01-08-2023 PNEUMOCOCCAL (2 - PP SV23 if available, else PCV20) PNEUMOCOCCAL (2 - PPSV23 if available, else PCV20) [facility] Immunizations Immunization Date Immunization Notes Care Provider Fa katharinaty 12-20-2022 influenza, injectabl e, quadrivalent, contains preservative Adama Diallo MD Work Phone: [facility] 12-18-2021 influenza virus vaccine, unspecified formulation Anuj Hanson MD Work Phone: [facility] 09-15-2021 tetanus toxoid, redu susi diphtheria toxoid, and acellular pertussis vaccine, adsorbed Or Nurse Work Phone: [facility] Work Phone: 09-14-2021 tetanus toxoid, redu susi diphtheria toxoid, and acellular pertussis vaccine, adsorbed Tracy Paige APRN.CNP Work Phone: [facility] Work Phone: 11-16-2020 influenza, injectabl e, quadrivalent, contains preservative Adele Menon [facility] 05-09-2020 COVID-19 vaccine, fu ll dose (MODERNA) Adele Menon [facility] 11-04-2019 influenza, injectabl e, quadrivalent, preservative free Adama Diallo MD Work Phone: [facility] 01-09-2019 influenza virus vaccine, unspecified formulation Adele Menon [facility] Work Phone: 01-29-2018 pneumococcal conjuga te vaccine, 13 valent Adele Becerranadiya [facility] Payers Date Payer Category Payer Unknown [id number] 2012 Unknown [employer] PPO OOS [id number] 2012-Present [phone] [address] [place] [address] PPO [id number] 2012 Unknown [employer] PPO OOS [id number] 2012-Present [phone] [address] [place] [address] PPO [id number] Social History Date Type Detail Facility Start: 10-01-2017 End: 11-16-2021 Tobacco smoking status NHIS Former smoker [facility] End: 02-25-2003 History of tobacco use Current smoker [employer] Phone: Start: 10-01-2017 End: 11-16-2021 Tobacco use and exposure Never used [facility] Work Phone: Start: 10-01-2017 End: 02-11-2023 Alcohol intake Current non-drinker of alcohol (finding) [facility] Work Phone: Start: 09-30-2017 Alcohol Comment rare [facility] Work Phone: Start: 1960 Sex Assigned At Not on file [facility] [employer] Work Phone: Start: 05-23-2021 End: 05-23-2021 Assertion Unknown if ever smoked [facility] Work Phone: End: 01-06-1998 History of tobacco use Cigarette Smoker [facility] Start: 11-14-2020 History SDOH Alcohol Frequency 1 [facility] Start: 11-14-2020 History SDOH Alcohol Std Drinks 98 [facility] Start: 11-14-2020 History SDOH Social Connections Phone 2 [facility] Start: 11-14-2020 History SDOH Social Connections Living 3 [facility] Start: 11-14-2020 History SDOH Physica l Activity DPW 7 [facility] Start: 11-14-2020 History SDOH Physica l Activity MPS 5 [facility] Start: 11-14-2020 Education 21 [facility] Start: 06-09-2021 End: 01-03-2022 Exposure to SARS-CoV-2 (event) Not sure [facility] Start: 01-06-2018 End: 07-09-2022 Cigarettes smoked current (pack per day) - Reported 1 [facility] Start: 07-24-2017 End: 07-09-2022 Social connection and isolation panel [facility] Do you belong to any clubs or organizations such as scientology groups, unions, fraternal or athletic groups, or school groups? No [facility] Are you now , , , , never or living with a partner? [facility] How often to you hav e a drink containing alcohol? Never [facility] How many standard drinks containing alcohol do you have on a typical day? Patient refused [facility] Do you feel stress - tense, restless, nervous, or anxious, or unable to sleep at night because your mind is troubled all the time - these days [OSQ] To some extent [facility] (I/We) worried wheth er (my/our) food would run out before (I/we) got money to buy more. Never true [facility] NEGATED: Highlighted rowStart: 05-23-2021 End: 05-23-2021 Employment detail Employment detail [facility] Work Phone: Clinical Notes 02-13-2018 to 03-06-2023 Telephone Encounter - Cristofer Sparks PA-C - 02/13/2023 11:57 AM ESTTelephone Encounter - Maureen Huston RN - 02/13/2023 11:08 AM Maureen Mariscal RN - 01/10/2023 9:18 AM EST Note Date & Type Note Facility 03-06-2023 Note HNO ID: [id number] Author: ADAMA DIALLO MD Service: ? Author Type: Anesthesiologist Type: Progress Notes Filed: 03/07/2023 07:50 Note Text: This note was created using [email or web address]. Subjective Stephanie Moore is a 63 year old female. The patient primarily being seen for bilateral knee and right shoulder pain Patient was last seen on: 01/09/23 At that time, the treatment plan was: see notes Current Meds: Methadone last dose 12noon today,Percocet last dose 10 am today,Cyclobenzaprine last dose last pm,Compounding Cream last used couple days ago Efficacy: meds help pain Side effects:none TENS unit: had one did not help How often used: Benefit: Physical Therapy: Last UDS: 03/06/23 Last injection: none OARRS reviewed yes INTAKE PAIN ASSESSMENT 02/11/2023 03/06/2023 Are you having pain associated with your visit today? Yes, Provider notified Yes, Provider notified Pain Scales Verbal (Numeric Rating or Visual Analog Scale) Verbal (Numeric Rating or Visual Analog Scale) Pain Level 8 6 Pain Location (No Data) Knee-Left Description Burning;Stabbing;Other: See comment Burning;Other: See comment Duration Amount of Time 3 - Duration Units Weeks - Frequency Continuous Continuous Intervention/Comfort measure Other: See comment Medication;Relaxation;Cold Comments - - Pain Assessment - - HPI Patient is getting adequate relief from the present regimen and denies any side effect from it except for occasional constipation that is relieved by MiraLAX. This has improved the patient?s level of functionality and has been able to perform activities of daily living. The patient exhibits no aberrant behavior. The PDMP report and last UDS are both consistent with prescribed medications and are unremarkable. Patient saw an orthopedic surgeon at the [facility] who wanted to do viscosupplementation. Review of Systems Constitutional: Negative. Gastrointestinal: Positive for constipation. Musculoskeletal: Positive for joint pain, joint swelling, stiffness, and arthritis Neurological: Positive for paresthesia and difficulty walking Objective BP 140/85 (BP Site: Left Arm, BP Position: Sitting, BP Cuff Size: Large Adult) Pulse 61 Temp 36.4 ?C (97.5 ?F) Resp 18 SpO2 98% Physical Exam Vitals and nursing note reviewed. Constitutional: General: She is not in acute distress. Appearance: Normal appearance. She is obese. HENT: Head: Normocephalic and atraumatic. Right Ear: External ear normal. Left Ear: External ear normal. Nose: Nose normal. Eyes: General: No scleral icterus. Extraocular Movements: Extraocular movements intact. Conjunctiva/sclera: Conjunctivae normal. Musculoskeletal: Comments: The patient walks with a limp. There is increased pain on range of motion of the lumbar spine. Lumbosacral paraspinal muscle spasm and tenderness was present. There is increased pain on weightbearing and range of motion of both knees. Skin: General: Skin is warm and dry. Neurological: General: No focal deficit present. Mental Status: She is alert and oriented to person, place, and time. Comments: Allodynia and hyperpathia present on the right leg. Psychiatric: Mood and Affect: Mood normal. Behavior: Behavior normal. Thought Content: Thought content normal. Assessment and Plan ASSESSMENT/PLAN: 1. Chronic pain syndrome - ICD9: 338.4, ICD10: G89.4 (primary diagnosis) 2. Complex regional pain syndrome type 1 of right lower extremity - ICD9: 337.22, ICD10: G90.521 - TOXASSURE? FLEX 23, URINE 3. residential (current) use of opiate analgesic - ICD9: V58.69, ICD10: Z79.891 - TOXASSURE? FLEX 23, URINE 4. Primary osteoarthritis of both knees - ICD9: 715.16, ICD10: M17.0 5. Plantar fasciitis - ICD9: 728.71, ICD10: M72.2 PLAN: Repeat urine drug screen this visit. The patient will continue on methadone, Percocet, cyclobenzaprine, and a compounded cream. Patient will increase fluid and fiber intake and take MiraLAX as needed for opioid-induced constipation. Patient will continue with core strengthening and range of motion exercises. We again discussed the importance of losing weight. Repeat EKG in March 2023. Follow-up in office in 6 weeks time. 30 minutes spent for chronic pain management distinct from evaluation and management Two or more stable chronic illness and prescription medication management This document was transcribed using a voice recognition software and may contain minor errors. Adama Diallo MD [facility] 02-13-2023 Miscellaneous Notes The following approved medication requests have been transmitted electronically. Requested Prescriptions Pending Prescriptions Disp Refills methadone (DOLOPHINE) 10 mg tablet 270 tablet 0 Sig: Take 3 tablets by mouth every 8 hours as needed for pain for up to 30 days. Do not start before February 25, 2023. oxyCODONE-acetaminophen (PERCOCET) 5-325 mg tablet 90 tablet 0 Sig: Take 1 tablet by mouth every 8 hours as needed for pain for up to 30 days. Do not start before February 25, 2023. Cristofer Sparks PA-C Patient phones requesting refills as follows: Requested Prescriptions Pending Prescriptions Disp Refills methadone (DOLOPHINE) 10 mg tablet 270 tablet 0 Sig: Take 3 tablets by mouth every 8 hours as needed for pain for up to 30 days. Do not start before February 25, 2023. oxyCODONE-acetaminophen (PERCOCET) 5-325 mg tablet 90 tablet 0 Sig: Take 1 tablet by mouth every 8 hours as needed for pain for up to 30 days. Do not start before February 25, 2023. Please review and advise. Maureen Huston RN documented in this encounter [facility] 02-11-2023 Note HNO ID: [id number] Author: JEYSON KRISHNAMURTHY MD Service: ? Author Type: Physician Type: Progress Notes Filed: 03/10/2023 17:06 Note Text: Jeyson Krishnamurthy MD Department of Orthopaedics Orthopaedics [address] [facility] [address] Dept: [phone] Dept February 11, 2023 CHIEF COMPLAINT: New and Pain of the Left Knee and New and Pain of the Right Knee HPI Patient here today for bilateral knee pain. States she fell and landed on her knees on 01/21/2023. She was having knee pain before the fall. She does see pain management and was referred here. X-ray at [facility] on 01/03/2023. ASSESSMENT: S80.00XA Contusion of knee, unspecified laterality, initial encounter (primary encounter diagnosis) PLAN: Exacerbation of her underlying OA and likely contusions as she still has some swelling in the soft tissues. No frctures on films. Symptomatic relief and OA management after. Wt. Loss. OBJECTIVE: Ms. Stephanie Moore is a pleasant 62 year old in no apparent distress. Gen:There were no vitals taken for this visit. nl development, obese, no deformities ENT: Normocephalic, normal hearing, moist mucosa CV: Pulses:DP/PT= 2+ and symmetric, capillary refill < 2 secs, no peripheral edema/varicosities Skin: no rash, bruising or lesions. Good turgor. Psych: cooperative and appropriate, alert and oriented x 3, good mood and affect. Musculoskeletal: Mild soft tissue swelling and tenderness over the antieror knees, bilaterally. Mild TTP over medial joint lines, bilaterally. Imagin views of knees from outside facility shows medial and patellofemoral OA without evidence of fracture. Supporting Subjective Information Below: Past Surgical History: PAST SURGICAL HISTORY Procedure Laterality Date ARTHROSCOPY KNEE DIAGNOSTIC W/WO SYNOVIAL BX SPX 1996,1999 Arthroscopy, knee right X 2 ARTHRP INTERPOS INTERCARPAL/METACARPAL JOINTS Left 06/29/2016 Left thumb CMC arthroplasty with ligament reconstruction and tendon interposition DELIVERY ONLY X3 , low cervical COLONOSCOPY FLX DX W/COLLJ SPEC WHEN PFRMD 08/27/2018 Colonoscopy DILATION AND CURETTAGE DXAND/THER NONOBSTETRIC Dilation AND curettage ESOPHAGOGASTRODUODENOSCOPY TRANSORAL DIAGNOSTIC 08/27/2018 EGD LAPS SURG CHOLECYSTECTOMY W/CHOLANGIOGRAPHY 07/19/2005 NEUROPLASTY AND/TRANSPOS MEDIAN NRV CARPAL TUNNE Carpal tunnel decomp bilateral PAST SURGICAL HISTORY OF 2004 removal spinal cord stimulator PAST SURGICAL HISTORY OF right foot tendon release, PAST SURGICAL HISTORY OF 07/2014 Left wrist, first dorsal compartment release PAST SURGICAL HISTORY OF plantar fascitis S SPINAL CORD STIMULATOR, 1999 SPINL CRD STIM MIKAYLA/REM SCS EL TOTAL ABDOMINAL HYSTERECT W/WO RMVL TUBE OVARY Hysterectomy, IMTIAZ Medications: Current Outpatient Medications Medication Sig methadone (DOLOPHINE) 10 mg tablet Take 3 tablets by mouth every 8 hours as needed for pain for up to 30 days. Do not start before January 26, 2023. oxyCODONE-acetaminophen (PERCOCET) 5-325 mg tablet Take 1 tablet by mouth every 8 hours as needed for pain for up to 30 days. Do not start before January 26, 2023. atorvastatin (LIPITOR) 40 mg tablet Take 1 tablet by mouth once daily. pantoprazole DR (PROTONIX) 20 mg tablet Take 1 tablet by mouth two times a day. Take on empty stomach, 1/2 hr before meal. warfarin (COUMADIN) 5 mg tablet Take 1 tablet by mouth once daily. buPROPion XL (WELLBUTRIN XL) 150 mg 24 hr tablet Take 1 tablet by mouth once daily. cream base no.103, bulk, crea Apply to affected area as directed. Apply topically 1-2 grams ( 1 pump) to the affected area 3-4 times daily Rub in well mycophenolate Mofetil (CELLCEPT) 500 mg tablet Take 2 tablets by mouth twice daily. cyclobenzaprine (FLEXERIL) 10 mg tablet Take 1 tablet by mouth three times daily as needed for muscle spasm. ascorbic acid, vitamin C, (VITAMIN C) 500 mg tablet Take 500 mg by mouth twice daily. metoprolol tartrate, short acting, (LOPRESSOR) 25 mg tablet polyethylene glycol 3350 (MIRALAX, GLYCOLAX) 17 gram/dose powder Miralax 17 gram/dose powder busPIRone (BUSPAR) 10 mg tablet Take 1 tablet by mouth three times daily. sertraline (ZOLOFT) 100 mg tablet Take 1 tablet by mouth once daily. warfarin (COUMADIN) 2 mg tablet TAKE 2 TABLETS ON SATURDAY, SATURDAY, SATURDAY AND SATURDAY. warfarin (COUMADIN) 1 mg tablet Take as directed by [facility] [facility] Cholecalciferol, Vitamin D3, 50 mcg (2,000 unit) cap Take 2 capsules by mouth once daily. aspirin 81 mg chewable tablet Take 81 mg by mouth once daily. lidocaine (LIDODERM) 5 % Apply 1 Patch as directed every 12 hours. Lidocaine patch to left ribs on for 12 hours and then off for 12 hours ondansetron (ZOFRAN) 4 mg tablet AT BEDTIME No current facility-administered medications for this visit. Allergies: Hydrocodone-Acetaminophen, Opioids - Morphine Analogues, Pentazocine, (more content not included)... [facility] 01-10-2023 Note HNO ID: [id number] Author: Maureen Huston RN Service: ? Author Type: Registered Nurse Type: Progress Notes Filed: 01/10/2023 9:23 AM Note Text: Ordered per Dr Diallo at office visit Maureen Huston RN January 10, 2023 9:21 AM [facility] 01-10-2023 History of Present illness Narrative Ordered per Dr Diallo at office visit Maureen Huston RN January 10, 2023 9:21 AM documented in this encounter [facility] 01-09-2023 Note HNO ID: [id number] Author: Adama Diallo MD Service: ? Author Type: Anesthesiologist Type: Progress Notes Filed: 01/10/2023 8:49 AM Note Text: This note was created using [email or web address]. Subjective Stephanie Moore is a 62 year old female. The patient primarily being seen for bilateral knee AND right shoulder pain Patient was last seen on: 11/28/22 At that time, the treatment plan was: see notes Current Meds: Methadone - last dose noon, Percocet - this afternoon, Cyclobenzaprine - 2 days ago, Compounding Cream - yesterday Efficacy: help Side effects: none TENS unit: had one but didn't help How often used: Benefit: Physical Therapy: last year for shoulder Last UDS: 08/13/22 Last injection: none OARRS reviewed INTAKE PAIN ASSESSMENT 01/02/2023 01/09/2023 Are you having pain associated with your visit today? No Yes, Provider notified Pain Scales - Verbal (Numeric Rating or Visual Analog Scale) Pain Level - 7 Pain Location - Other: See Comment Description - Aching;Dull;Sharp;Stabbing Duration Amount of Time - - Duration Units - - Frequency - Continuous Intervention/Comfort measure - Medication;Cold Comments - - Pain Assessment - - HPI Patient is getting adequate relief from the present regimen and denies any side effect from it except for constipation that is relieved by MiraLAX. This has improved the patient?s level of functionality and has been able to perform activities of daily living. The patient exhibits no aberrant behavior. The PDMP report and last UDS are both consistent with prescribed medications and are unremarkable. The previously recommended bilateral knee viscosupplementation but patient wanted to see an orthopedic surgeon for which she has an appointment next month. Patient requests for renewal of handicap placard Review of Systems Constitutional: Negative. Gastrointestinal: Positive for constipation. Musculoskeletal: Positive for joint pain, joint swelling, stiffness, and arthritis Neurological: Positive for paresthesia and difficulty walking Objective BP 146/85 (BP Site: Left Arm, BP Position: Sitting, BP Cuff Size: Large Adult) Pulse (!) 56 Temp 36.4 ?C (97.5 ?F) (Temporal) Resp 20 Ht 165.1 cm (5' 5 ) Wt 106.6 kg (235 lb) SpO2 98% BMI 39.11 kg/m? Physical Exam Vitals and nursing note reviewed. Constitutional: General: She is not in acute distress. Appearance: Normal appearance. She is obese. HENT: Head: Normocephalic and atraumatic. Right Ear: External ear normal. Left Ear: External ear normal. Nose: Nose normal. Eyes: General: No scleral icterus. Extraocular Movements: Extraocular movements intact. Conjunctiva/sclera: Conjunctivae normal. Musculoskeletal: Comments: The patient walks with a limp. There is increased pain on range of motion of the lumbar spine. Lumbosacral paraspinal muscle spasm and tenderness was present. There is increased pain on weightbearing and range of motion of both knees. Skin: General: Skin is warm and dry. Neurological: General: No focal deficit present. Mental Status: She is alert and oriented to person, place, and time. Comments: Allodynia and hyperpathia present on the right leg. Psychiatric: Mood and Affect: Mood normal. Behavior: Behavior normal. Thought Content: Thought content normal. Assessment and Plan ASSESSMENT/PLAN: 1. Chronic pain syndrome - ICD9: 338.4, ICD10: G89.4 (primary diagnosis) 2. Complex regional pain syndrome type 1 of right lower extremity - ICD9: 337.22, ICD10: G90.521 3. Primary osteoarthritis of both knees - ICD9: 715.16, ICD10: M17.0 4. Plantar fasciitis - ICD9: 728.71, ICD10: M72.2 PLAN: Patient will continue with methadone, Percocet, cyclobenzaprine, and a compounded cream. She will increase fluid and fiber intake and take MiraLAX as needed for opioid-induced constipation. Continue with core strengthening and range of motion exercises. Patient was encouraged to lose weight. Repeat EKG in March 2023. Handicap placard was renewed. We will await input from orthopedics concerning both knees. Follow-up in office in 6 weeks time. 30 minutes spent for chronic pain management distinct from evaluation and management Two or more stable chronic illness and prescription medication management This document was transcribed using a voice recognition software and may contain minor errors. Adama Diallo MD [facility] 01-09-2023 Instructions Adama Diallo MD - 01/09/2023 4:44 PM EST Patient will continue with methadone, Percocet, cyclobenzaprine, and a compounded cream. She will increase fluid and fiber intake and take MiraLAX as needed for opioid-induced constipation. Continue with core strengthening and range of motion exercises. Patient was encouraged to lose weight. Repeat EKG in March 2023. Handicap placard was renewed. We will await input from orthopedics concerning both knees. Follow-up in office in 6 weeks time. documented in this encounter [facility] 01-09-2023 History of Present illness Narrative This note was created using [email or web address]. Subjective Stephanie Moore is a 62 year old female. The patient primarily being seen for bilateral knee & right shoulder pain Patient was last seen on: 11/28/22 At that time, the treatment plan was: see notes Current Meds: Methadone - last dose noon, Percocet - this afternoon, Cyclobenzaprine - 2 days ago, Compounding Cream - yesterday Efficacy: help Side effects: none TENS unit: had one but didn't help How often used: Benefit: Physical Therapy: last year for shoulder Last UDS: 6/19/23 Last injection: none OARRS reviewed INTAKE PAIN ASSESSMENT 01/02/2023 01/09/2023 Are you having pain associated with your visit today? No Yes, Provider notified Pain Scales - Verbal (Numeric Rating or Visual Analog Scale) Pain Level - 7 Pain Location - Other: See Comment Description - Aching;Dull;Sharp;Stabbing Duration Amount of Time - - Duration Units - - Frequency - Continuous Intervention/Comfort measure - Medication;Cold Comments - - Pain Assessment - - HPI Patient is getting adequate relief from the present regimen and denies any side effect from it except for constipation that is relieved by MiraLAX. This has improved the patient s level of functionality and has been able to perform activities of daily living. The patient exhibits no aberrant behavior. The PDMP report and last UDS are both consistent with prescribed medications and are unremarkable. The previously recommended bilateral knee viscosupplementation but patient wanted to see an orthopedic surgeon for which she has an appointment next month. Patient requests for renewal of handicap placard Review of Systems Constitutional: Negative. Gastrointestinal: Positive for constipation. Musculoskeletal: Positive for joint pain, joint swelling, stiffness, and arthritis Neurological: Positive for paresthesia and difficulty walking Objective BP 146/85 (BP Site: Left Arm, BP Position: Sitting, BP Cuff Size: Large Adult) Pulse (!) 56 Temp 36.4 C (97.5 F) (Temporal) Resp 20 Ht 165.1 cm (5' 5 ) Wt 106.6 kg (235 lb) SpO2 98% BMI 39.11 kg/m Physical Exam Vitals and nursing note reviewed. Constitutional: General: She is not in acute distress. Appearance: Normal appearance. She is obese. HENT: Head: Normocephalic and atraumatic. Right Ear: External ear normal. Left Ear: External ear normal. Nose: Nose normal. Eyes: General: No scleral icterus. Extraocular Movements: Extraocular movements intact. Conjunctiva/sclera: Conjunctivae normal. Musculoskeletal: Comments: The patient walks with a limp. There is increased pain on range of motion of the lumbar spine. Lumbosacral paraspinal muscle spasm and tenderness was present. There is increased pain on weightbearing and range of motion of both knees. Skin: General: Skin is warm and dry. Neurological: General: No focal deficit present. Mental Status: She is alert and oriented to person, place, and time. Comments: Allodynia and hyperpathia present on the right leg. Psychiatric: Mood and Affect: Mood normal. Behavior: Behavior normal. Thought Content: Thought content normal. Assessment and Plan ASSESSMENT/PLAN: 1. Chronic pain syndrome - ICD9: 338.4, ICD10: G89.4 (primary diagnosis) 2. Complex regional pain syndrome type 1 of right lower extremity - ICD9: 337.22, ICD10: G90.521 3. Primary osteoarthritis of both knees - ICD9: 715.16, ICD10: M17.0 4. Plantar fasciitis - ICD9: 728.71, ICD10: M72.2 PLAN: Patient will continue with methadone, Percocet, cyclobenzaprine, and a compounded cream. She will increase fluid and fiber intake and take MiraLAX as needed for opioid-induced constipation. Continue with core strengthening and range of motion exercises. Patient was encouraged to lose weight. Repeat EKG in March 2023. Handicap placard was renewed. We will await input from orthopedics concerning both knees. Follow-up in office in 6 weeks time. 30 minutes spent for chronic pain management distinct from evaluation and management Two or more stable chronic illness and prescription medication management This document was transcribed using a voice recognition software and may contain minor errors. Adama Diallo MD documented in this encounter [facility] 01-03-2023 Note HNO ID: [id number] Author: Kaya Bailey RT(R) Service: Radiology Author Type: Technologist Type: Progress Notes Filed: 01/03/2023 2:45 PM Note Text: Radiology Service Progress Note PATIENT NAME: Stephanie Moore DATE OF SERVICE: January 03, 2023 TIME: 2:17 PM PATIENT IDENTITY VERIFICATION COMPLETED USING TWO (2) IDENTIFIERS: Name and Date of confirmed by patient verbally. FALL SCREENING: Has the patient had 2 falls in the last year or 1 fall with injury or currently using an Ambulatory Assistive Device (Walker, Cane, Wheelchair, Crutches, etc.)? No PATIENT GENDER DATA: Female. status: : No status: NO. PATIENT RELEVANT IMPLANT DATA REVIEWED: Yes RADIOLOGY DEPARTMENT: General X-ray: Exam(s) Completed: Lower Extremity X-Ray(s): Knee, AP / Lat / Tunne / Merchant Bilateral and Wt. Bearing and Foot, Left and Wt. Bearing PERIPHERAL IV DATA: Not applicable SIGNED BY: Kaya Bailey RT(R) January 03, 2023 2:17 PM [facility] 01-02-2023 Note HNO ID: [id number] Author: Tracy Paige APRN.JOSE Service: ? Author Type: Nurse Practitioner Type: Progress Notes Filed: 01/02/2023 6:45 PM Note Text: CC: Patient presents with: Recheck: 3 month follow up HPI Stephanie Moore is a 62 year old female who presents today for routine follow up but with a few concerns. HTN and HLD: Ms. Moore indicates that she is feeling well and denies any symptoms referable to elevated blood pressure. Specifically denies change in chronic headache, chest pain, palpitations, dyspnea, and peripheral edema. Patient denies any side effects of her medication(s) and is compliant with their regimen. She does not check BP's generally. Stephanie denies regular aerobic exercise. She watches her diet for sodium, low fat and low cholesterol most of the time. Last 3 Encounter BP Readings: Date: BP: 01/02/2023 128/76 11/28/2022 147/75 10/03/2022 124/68 GERD: Control with current medication. Denies heart burn, abdominal pain, or difficulty swallowing. Pain Mgmt: Sees pain mgmt in [place]. Has known chronic arthritic pain to bilateral knees. Was told to get a consult to orthopedics. Per patient knees have not been xrayed or evaluated by someone outside of pain mgmt in years. Denies any injury edema redness, fever, or weakness. Sharp pain to top of left foot suddenly for two weeks. No known injury of cause, change of activity, change in shoes. Does notice a small amount of puffiness to left foot and is tender. No previous injury to left foot. Makes walking very difficult because of pain. REVIEW OF SYSTEMS General: no fevers, no chills, no night sweats, no recurrent infections, no change in appetite, no change in energy, and no significant changes in weight Respiratory: no cough, no wheezing, no shortness of breath, no hemoptysis Cardiovascular: no chest pain, no chest pressure, no palpitations, and no swelling Neurologic: No weakness, numbness, tingling, neck stiffness, tremor, vertigo, dizziness, memory loss, syncope. 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 Vasculitis ([facility]) PAST SURGICAL HISTORY Procedure Laterality Date ARTHROSCOPY KNEE DIAGNOSTIC W/WO SYNOVIAL BX SPX 1996,1999 Arthroscopy, knee right X 2 ARTHRP INTERPOS INTERCARPAL/METACARPAL JOINTS Left 06/29/2016 Left thumb CMC arthroplasty with ligament reconstruction and tendon interposition DELIVERY ONLY X3 , low cervical COLONOSCOPY FLX DX W/COLLJ SPEC WHEN PFRMD 08/27/2018 Colonoscopy DILATION AND CURETTAGE DXAND/THER NONOBSTETRIC Dilation AND curettage ESOPHAGOGASTRODUODENOSCOPY TRANSORAL DIAGNOSTIC 08/27/2018 EGD LAPS SURG CHOLECYSTECTOMY W/CHOLANGIOGRAPHY 07/19/2005 NEUROPLASTY AND/TRANSPOS MEDIAN NRV CARPAL TUNNE Carpal tunnel decomp bilateral PAST SURGICAL HISTORY OF 2004 removal spinal cord stimulator PAST SURGICAL HISTORY OF right foot tendon release, PAST SURGICAL HISTORY OF 07/2014 Left wrist, first dorsal compartment release PAST SURGICAL HISTORY OF plantar fascitis S SPINAL CORD STIMULATOR, 1999 SPINL CRD STIM MIKAYLA/REM SCS EL TOTAL ABDOMINAL HYSTERECT W/WO RMVL TUBE OVARY Hysterectomy, IMTIAZ ALLERGIES Hydrocodone-Acetaminophen, Opioids - Morphine Analogues, Pentazocine, Propoxyphene, Steri Strips And Paper Tape [Other], and [place] [Pentazocine-Acetaminophen] MEDICATIONS oxyCODONE-acetaminophen (PERCOCET) 5-325 mg tablet Take 1 tablet by mouth every 8 hours as needed for pain for up to 30 days. Do not start before December 27, 2022. methadone (DOLOPHINE) 10 mg tablet Take 3 tablets by mouth every 8 hours as needed for pain for up to 30 days. Do not start before December 27, 2022. warfarin (COUMADIN) 5 mg tablet Take 1 tablet by mouth once daily. buPROPion XL (WELLBUTRIN XL) 150 mg 24 hr tablet Take 1 tablet by mouth once daily. cream base no.103, bulk, crea Apply to affected area as directed. Apply topically 1-2 grams ( 1 pump) to the affected area 3-4 times daily Rub in well mycophenolate Mofetil (CELLCEPT) 500 mg tablet Take 2 tablets by mouth twice daily. cyclobenzaprine (FLEXERIL) 10 mg tablet Take 1 tablet by mouth three times daily as needed for muscle spasm. atorvastatin (LIPITOR) 40 mg tablet Take 1 tablet by mouth once daily. pantoprazole DR (PROTONIX) 20 mg tablet Take 1 tablet by mouth twice daily. Take on empty stomach, 1/2 hr before meal. lidocaine (LIDODERM) 5 % Apply 1 Patch as directed every 12 hours. Lidocaine patch to left ribs on for 12 hours and then off for (more content not included)... [facility] 12-24-2022 Miscellaneous Notes The following approved medication requests have been transmitted electronically. Requested Prescriptions Pending Prescriptions Disp Refills oxyCODONE-acetaminophen (PERCOCET) 5-325 mg tablet 90 tablet 0 Sig: Take 1 tablet by mouth every 8 hours as needed for pain for up to 30 days. Do not start before December 27, 2022. methadone (DOLOPHINE) 10 mg tablet 270 tablet 0 Sig: Take 3 tablets by mouth every 8 hours as needed for pain for up to 30 days. Do not start before December 27, 2022. Cristofer Sparks PA-C Patient phones requesting refills as follows: Requested Prescriptions Pending Prescriptions Disp Refills oxyCODONE-acetaminophen (PERCOCET) 5-325 mg tablet 90 tablet 0 Sig: Take 1 tablet by mouth every 8 hours as needed for pain for up to 30 days. Do not start before December 27, 2022. methadone (DOLOPHINE) 10 mg tablet 270 tablet 0 Sig: Take 3 tablets by mouth every 8 hours as needed for pain for up to 30 days. Do not start before December 27, 2022. Please review and advise. Maureen Huston RN documented in this encounter [facility] 12-20-2022 Miscellaneous Notes Noted Has upcoming appointment scheduled. Will discuss further then Tracy Paige APRN.JOSE Shun @ [facility] calling to say they have been unable to reach patient for home INR monitor. He says they have called multiple times and have left messages. Now her voice mail is full and he says they will no longer attempt to contact patient. Verified phone number with number in demographics. Allyson Ferreira RN documented in this encounter [facility] 11-28-2022 Note HNO ID: [id number] Author: Adama Diallo MD Service: ? Author Type: Physician Type: Progress Notes Filed: 11/29/2022 7:21 AM Note Text: This note was created using [email or web address]. Subjective Stephanie Moore is a 62 year old female. The patient primarily being seen for bilateral knee AND right shoulder pain Patient was last seen on: 09/24/22 At that time, the treatment plan was: see notes Current Meds: Methadone - last dose noon, Percocet - this afternoon, Cyclobenzaprine - couple days ago, Compounding Cream - last pm Efficacy: help Side effects: none TENS unit: had one but didn't help How often used: Benefit: Physical Therapy: last year for shoulder Last UDS: 08/13/22 Last injection: none OARRS reviewed INTAKE PAIN ASSESSMENT 10/03/2022 11/28/2022 Are you having pain associated with your visit today? No Yes, Provider notified Pain Scales - Verbal (Numeric Rating or Visual Analog Scale) Pain Level - 7 Pain Location - Other: See Comment Description - Sharp;Stabbing Duration Amount of Time - - Duration Units - - Frequency - Intermittent Intervention/Comfort measure - Cold;Medication;Relaxation;Pillow support Comments - - Pain Assessment - - HPI Patient is getting adequate relief from the present regimen and denies any side effect from it except for occasional constipation that is relieved by MiraLAX. This has improved the patient?s level of functionality and has been able to perform activities of daily living. The patient exhibits no aberrant behavior. The PDMP report and last UDS are both consistent with prescribed medications and are unremarkable. Bilateral knee pain has been getting worse lately. Review of Systems Constitutional: Negative. Gastrointestinal: Positive for constipation. Musculoskeletal: Positive for joint pain, joint swelling, stiffness, and arthritis Neurological: Positive for paresthesia and difficulty walking Objective BP 147/75 (BP Site: Left Arm, BP Position: Sitting, BP Cuff Size: Large Adult) Pulse (!) 57 Temp 36.3 ?C (97.3 ?F) (Temporal) Resp 20 Ht 165.1 cm (5' 5 ) Wt 104.3 kg (230 lb) SpO2 99% BMI 38.27 kg/m? Physical Exam Vitals and nursing note reviewed. Constitutional: General: She is not in acute distress. Appearance: Normal appearance. She is obese. HENT: Head: Normocephalic and atraumatic. Right Ear: External ear normal. Left Ear: External ear normal. Nose: Nose normal. Eyes: General: No scleral icterus. Extraocular Movements: Extraocular movements intact. Conjunctiva/sclera: Conjunctivae normal. Musculoskeletal: Right lower leg: Edema present. Left lower leg: Edema present. Comments: The patient walks with a limp. There is increased pain on range of motion of the lumbar spine. Lumbosacral paraspinal muscle spasm and tenderness was present. There is increased pain on weightbearing and range of motion of both knees. Skin: General: Skin is warm and dry. Neurological: General: No focal deficit present. Mental Status: She is alert and oriented to person, place, and time. Comments: Allodynia and hyperpathia present on the right leg. Psychiatric: Mood and Affect: Mood normal. Behavior: Behavior normal. Thought Content: Thought content normal. Assessment and Plan ASSESSMENT/PLAN: 1. Chronic pain syndrome - ICD9: 338.4, ICD10: G89.4 (primary diagnosis) 2. Complex regional pain syndrome type 1 of right lower extremity - ICD9: 337.22, ICD10: G90.521 3. Primary osteoarthritis of both knees - ICD9: 715.16, ICD10: M17.0 4. Plantar fasciitis - ICD9: 728.71, ICD10: M72.2 PLAN: Opioid agreement was renewed. The patient will continue with methadone, Percocet, cyclobenzaprine, and a compounded cream. The patient will increase fluid and fiber intake and take MiraLAX as needed for opioid-induced constipation. The patient will continue with core strengthening and range of motion exercises. We again discussed the importance of losing weight. I suggested trying knee viscosupplementation and if she would like to think about it. Repeat EKG in March 2023. Follow-up in office in 6 weeks time. 30 minutes spent for chronic pain management distinct from evaluation and management Two or more stable chronic illness and prescription medication management This document was transcribed using a voice recognition software and may contain minor errors. Adama Diallo MD [facility] 10-31-2022 Miscellaneous Notes Noted. Patient aware to come in for INR checks. Tracy Paige APRN.JOSE See pharmacist's note below dated 09/04/2022- Called and spoke to patient/caregiver. Explained that home meter can no longer be used in patients with APS due to labeling in [employer] that states INR may not be accurate. Advised patient to continue current weekly dose as noted above Next lab INR check scheduled on 10/03/2022 Patient states she will try to get to lab but it will be very difficult. [employer] has deactivated patient's account d/t possibility of inaccurate readings. See Dr. Beltran's note below, deferring to PCP. No follow up needed here. Tg Ramos LPN That sounds reasonable as long as the machine is up-to-date and is regularly calibrated, but not sure that is the case since she is discharged from home monitoring services. I see Tracy Paige has been ordering her Coumadin. No longer needs follow-up with me. Jose Beltran DO She is testing at home but since she has a lupus antibody, the company cannot guarantee an accurate result. She states she has continued to test and been getting 2.1-2.7. She states she stays in range and goes to lab if its under 2 or over 3. If this is not acceptable to you for her to continue in this manner please advise. Jaci Matt LPN Please see messages below. Try calling patient. I do not know if she still taking Coumadin or not. If so she needs to be established with the Coumadin clinic as soon as able. Jose Beltran DO DISCHARGE No return call from patient. Letter sent. FINAL ATTEMPT letter sent at this time. If no response from patient within 3 weeks patient will be discharged from PAC at that time. Will also route to referring MD as SHELIAI and to see if office can assist in reaching patient. Daniela Manning CPhT ([employer] Stephanie Moore was sent a [employer]_ message and reminded to test INR today or as soon as possible. Tried her phone but her mailbox was full. Claire Chavez PharmD [facility] Patient was due to test INR today will continue to monitor for results. She is scheduled for an INTM visit today after 4pm so will watch for a lab result later. Claire Chavez PharmD Pharmacy Anticoagulation Clinic [facility] Ambulatory Pharmacy Anticoagulation Clinic Anticoagulation Episode Summary Anticoagulation Care Providers Provider Role Specialty Phone number Anuj Hanson MD Referring Internal Medicine [phone] Jose Beltran DO Responsible Hematology/Oncology [phone] Stephanie Moore is a 62 year old year old female patient being evaluated today for a Telemanagement visit. Patient is currently on the following anticoagulant(s) Warfarin. Labs PT INR (no units) Date Value 09/04/2022 2.1 per patient 05/10/2022 2.0 (Biotel) 05/30/2021 2.3 biotel INR Home CoaguChek (no units) Date Value 07/31/2022 2.7 07/17/2022 2.7 07/03/2022 3.0 Hemoglobin (g/dL) Date Value 07/14/2022 12.6 03/19/2020 11.3 Hematocrit (%) Date Value 07/14/2022 40.5 03/19/2020 38.7 Platelet Count (k/uL) Date Value 07/14/2022 226 03/19/2020 270 Creatinine (mg/dL) Date Value 07/14/2022 0.60 03/28/2022 0.54 11/20/2021 0.57 03/19/2020 0.75 03/15/2020 0.80 10/13/2019 0.73 Bilirubin, Total (mg/dL) Date Value 07/14/2022 0.6 03/19/2020 0.4 ALT (U/L) Date Value 07/14/2022 31 03/19/2020 17 AST (U/L) Date Value 07/14/2022 30 03/19/2020 22 Estimated Creatinine Clearance: 122 mL/min (based on SCr of 0.6 mg/dL). ALLERGIES Allergen Reactions Hydrocodone-Acetami* Unknown Opioids - Morphine * vicodin Pentazocine talwin Propoxyphene darvacet Steri Strips And Pa* Talacen [Pentazocin* Mental Status Change Indication for Warfarin: Anticoagulation Episode Summary Current INR goal: 2.0-3.0 Assessment: INR result of 2.1 is therapeutic Plan: Current Warfarin Dosing As of 09/04/2022 Full warfarin instructions: 5 mg every day Called and spoke to patient/caregiver. Explained that home meter can no longer be used in patients with APS due to labeling in [facility] that states INR may not be accurate. Advised patient to continue current weekly dose as noted above Next lab INR check scheduled on 10/03/2022 Patient states she will try to get to lab but it will be very difficult. Adele Mneon RPh Clinical Pharmacist, Pharmacy Anticoagulation Clinic Pharmacy Anticoagulation Clinic Pager: [phone]. PATIENT CALL Patient called call center regarding question. Spoke to patient. Last test with home meter via [facility] 07/31. Patient stated she called [employer] 08/14 to report 2.8 result and account was deactivated. Had patient test with home meter while on the phone with me and the INR result was 2.1. Not sure if we discussed with patient that meter is not accurate as she was upset that she received a return label. Message sent to [employer] as I couldn't see any request for meter to returned. Shun Reddy (Ali) documented in this encounter [facility] 10-31-2022 Miscellaneous Notes See other my chart and telephone encounters Due to her APS home INR may not be accurate and patient to come in to lab for INR draws. Thank you Tracy Paige APRN.CNP Luc with [facility] which is part of [facility] called in and reports they received the enrollment forms for the Pts home INR monitor, but it was rejected. He states he will be faxing new forms to provider to fill out. He states provider needs to check the 90 day box and fill out the entire middle section. documented in this encounter [facility] 10-23-2022 Miscellaneous Notes The following approved medication requests have been transmitted electronically. Requested Prescriptions Pending Prescriptions Disp Refills methadone (DOLOPHINE) 10 mg tablet 270 tablet 0 Sig: Take 3 tablets by mouth every 8 hours as needed for pain for up to 30 days. Do not start before October 28, 2022. oxyCODONE-acetaminophen (PERCOCET) 5-325 mg tablet 90 tablet 0 Sig: Take 1 tablet by mouth every 8 hours as needed for pain for up to 30 days. Do not start before October 28, 2022. Cristofer Sparks PA-C Patient phones requesting refills as follows: Requested Prescriptions Pending Prescriptions Disp Refills methadone (DOLOPHINE) 10 mg tablet 270 tablet 0 Sig: Take 3 tablets by mouth every 8 hours as needed for pain for up to 30 days. Do not start before October 28, 2022. oxyCODONE-acetaminophen (PERCOCET) 5-325 mg tablet 90 tablet 0 Sig: Take 1 tablet by mouth every 8 hours as needed for pain for up to 30 days. Do not start before October 28, 2022. Please review and advise. Maureen Huston RN documented in this encounter [facility] 10-03-2022 Note HNO ID: [id number] Author: Tracy Paige APRN.MENTAL HYGIENIST Service: ? Author Type: Nurse Practitioner Type: Progress Notes Filed: 10/08/2022 7:11 AM Note Text: Chief Complaint Patient presents with: Recheck: Medication follow up HPI Stephanie oMore is a 62 year old female who presents here today for anxiety and depression follow-up. Patient was seen 6 weeks ago and started on wellbutrin. Patient reports great improvement in energy level, scale at home shows weight loss, and has hade great improvement in overall mood. States she didn't know how depressed she was until this medicine started making her feel good. Denies any symptoms of IGLESIA Side effects: None Denies suicidal thoughts or plan. REVIEW OF SYSTEMS General: no fevers, no chills, no night sweats, no recurrent infections, no change in appetite, no change in energy, and no significant changes in weight Respiratory: no cough, no wheezing, no shortness of breath, no hemoptysis Cardiovascular: no chest pain, no chest pressure, no palpitations, and no swelling Neurologic: No headache, weakness, numbness, tingling, dizziness, memory loss, syncope. 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 Vasculitis ([facility]) PAST SURGICAL HISTORY Procedure Laterality Date ARTHROSCOPY KNEE DIAGNOSTIC W/WO SYNOVIAL BX SPX 1996,1999 Arthroscopy, knee right X 2 ARTHRP INTERPOS INTERCARPAL/METACARPAL JOINTS Left 06/29/2016 Left thumb CMC arthroplasty with ligament reconstruction and tendon interposition DELIVERY ONLY X3 , low cervical COLONOSCOPY FLX DX W/COLLJ SPEC WHEN PFRMD 08/27/2018 Colonoscopy DILATION AND CURETTAGE DXAND/THER NONOBSTETRIC Dilation AND curettage ESOPHAGOGASTRODUODENOSCOPY TRANSORAL DIAGNOSTIC 08/27/2018 EGD LAPS SURG CHOLECYSTECTOMY W/CHOLANGIOGRAPHY 07/19/2005 NEUROPLASTY AND/TRANSPOS MEDIAN NRV CARPAL TUNNE Carpal tunnel decomp bilateral PAST SURGICAL HISTORY OF 2004 removal spinal cord stimulator PAST SURGICAL HISTORY OF right foot tendon release, PAST SURGICAL HISTORY OF 07/2014 Left wrist, first dorsal compartment release PAST SURGICAL HISTORY OF plantar fascitis S SPINAL CORD STIMULATOR, 1999 SPINL CRD STIM MIKAYLA/REM SCS EL TOTAL ABDOMINAL HYSTERECT W/WO RMVL TUBE OVARY Hysterectomy, IMTIAZ ALLERGIES Hydrocodone-Acetaminophen, Opioids - Morphine Analogues, Pentazocine, Propoxyphene, Steri Strips And Paper Tape [Other], and Talacen [Pentazocine-Acetaminophen] MEDICATIONS methadone (DOLOPHINE) 10 mg tablet Take 3 tablets by mouth every 8 hours as needed for pain for up to 30 days. Do not start before September 28, 2022. oxyCODONE-acetaminophen (PERCOCET) 5-325 mg tablet Take 1 tablet by mouth every 8 hours as needed for pain for up to 30 days. Do not start before September 28, 2022. warfarin (COUMADIN) 5 mg tablet Take 1 tablet by mouth once daily. buPROPion XL (WELLBUTRIN XL) 150 mg 24 hr tablet Take 1 tablet by mouth once daily. cream base no.103, bulk, crea Apply to affected area as directed. Apply topically 1-2 grams ( 1 pump) to the affected area 3-4 times daily Rub in well mycophenolate Mofetil (CELLCEPT) 500 mg tablet Take 2 tablets by mouth twice daily. cyclobenzaprine (FLEXERIL) 10 mg tablet Take 1 tablet by mouth three times daily as needed for muscle spasm. atorvastatin (LIPITOR) 40 mg tablet Take 1 tablet by mouth once daily. pantoprazole DR (PROTONIX) 20 mg tablet Take 1 tablet by mouth twice daily. Take on empty stomach, 1/2 hr before meal. lidocaine (LIDODERM) 5 % Apply 1 Patch as directed every 12 hours. Lidocaine patch to left ribs on for 12 hours and then off for 12 hours ascorbic acid, vitamin C, (VITAMIN C) 500 mg tablet Take 500 mg by mouth twice daily. metoprolol tartrate, short acting, (LOPRESSOR) 25 mg tablet ondansetron (ZOFRAN) 4 mg tablet AT BEDTIME polyethylene glycol 3350 (MIRALAX, GLYCOLAX) 17 gram/dose powder Miralax 17 gram/dose powder busPIRone (BUSPAR) 10 mg tablet Take 1 tablet by mouth three times daily. sertraline (ZOLOFT) 100 mg tablet Take 1 tablet by mouth once daily. warfarin (COUMADIN) 2 mg tablet TAKE 2 TABLETS ON SATURDAY, SATURDAY, SATURDAY AND SATURDAY. warfarin (COUMADIN) 1 mg tablet Take as directed by [facility] Anticoagulation Clinic. Cholecalciferol, Vitamin D3, 50 mcg (2,000 unit) cap Take 2 capsules by mouth once daily. aspirin 81 mg chewable tablet Take 81 mg by mouth once daily. FAMILY HISTORY Problem Relation Age of Onset Cancer Mother lung/brain/pancreatic Hypertension F (more content not included)... [facility] 10-03-2022 History of Present illness Narrative Chief Complaint Patient presents with: Recheck: Medication follow up HPI Stephanie Moore is a 62 year old female who presents here today for anxiety and depression follow-up. Patient was seen 6 weeks ago and started on wellbutrin. Patient reports great improvement in energy level, scale at home shows weight loss, and has hade great improvement in overall mood. States she didn't know how depressed she was until this medicine started making her feel good. Denies any symptoms of IGLESIA Side effects: None Denies suicidal thoughts or plan. REVIEW OF SYSTEMS General: no fevers, no chills, no night sweats, no recurrent infections, no change in appetite, no change in energy, and no significant changes in weight Respiratory: no cough, no wheezing, no shortness of breath, no hemoptysis Cardiovascular: no chest pain, no chest pressure, no palpitations, and no swelling Neurologic: No headache, weakness, numbness, tingling, dizziness, memory loss, syncope. 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 Vasculitis ([facility]) PAST SURGICAL HISTORY Procedure Laterality Date ARTHROSCOPY KNEE DIAGNOSTIC W/WO SYNOVIAL BX SPX 1996,1999 Arthroscopy, knee right X 2 ARTHRP INTERPOS INTERCARPAL/METACARPAL JOINTS Left 06/29/2016 Left thumb CMC arthroplasty with ligament reconstruction and tendon interposition DELIVERY ONLY X3 , low cervical COLONOSCOPY FLX DX W/COLLJ SPEC WHEN PFRMD 08/27/2018 Colonoscopy DILATION & CURETTAGE DX&/THER NONOBSTETRIC Dilation & curettage ESOPHAGOGASTRODUODENOSCOPY TRANSORAL DIAGNOSTIC 08/27/2018 EGD LAPS SURG CHOLECYSTECTOMY W/CHOLANGIOGRAPHY 07/19/2005 NEUROPLASTY &/TRANSPOS MEDIAN NRV CARPAL TUNNE Carpal tunnel decomp bilateral PAST SURGICAL HISTORY OF 2004 removal spinal cord stimulator PAST SURGICAL HISTORY OF right foot tendon release, PAST SURGICAL HISTORY OF 07/2014 Left wrist, first dorsal compartment release PAST SURGICAL HISTORY OF plantar fascitis S SPINAL CORD STIMULATOR, 1999 SPINL CRD STIM MIKAYLA/REM SCS EL TOTAL ABDOMINAL HYSTERECT W/WO RMVL TUBE OVARY Hysterectomy, IMTIAZ ALLERGIES Hydrocodone-Acetaminophen, Opioids - Morphine Analogues, Pentazocine, Propoxyphene, Steri Strips And Paper Tape [Other], and Talacen [Pentazocine-Acetaminophen] MEDICATIONS methadone (DOLOPHINE) 10 mg tablet Take 3 tablets by mouth every 8 hours as needed for pain for up to 30 days. Do not start before September 28, 2022. oxyCODONE-acetaminophen (PERCOCET) 5-325 mg tablet Take 1 tablet by mouth every 8 hours as needed for pain for up to 30 days. Do not start before September 28, 2022. warfarin (COUMADIN) 5 mg tablet Take 1 tablet by mouth once daily. buPROPion XL (WELLBUTRIN XL) 150 mg 24 hr tablet Take 1 tablet by mouth once daily. cream base no.103, bulk, crea Apply to affected area as directed. Apply topically 1-2 grams ( 1 pump) to the affected area 3-4 times daily Rub in well mycophenolate Mofetil (CELLCEPT) 500 mg tablet Take 2 tablets by mouth twice daily. cyclobenzaprine (FLEXERIL) 10 mg tablet Take 1 tablet by mouth three times daily as needed for muscle spasm. atorvastatin (LIPITOR) 40 mg tablet Take 1 tablet by mouth once daily. pantoprazole DR (PROTONIX) 20 mg tablet Take 1 tablet by mouth twice daily. Take on empty stomach, 1/2 hr before meal. lidocaine (LIDODERM) 5 % Apply 1 Patch as directed every 12 hours. Lidocaine patch to left ribs on for 12 hours and then off for 12 hours ascorbic acid, vitamin C, (VITAMIN C) 500 mg tablet Take 500 mg by mouth twice daily. metoprolol tartrate, short acting, (LOPRESSOR) 25 mg tablet ondansetron (ZOFRAN) 4 mg tablet AT BEDTIME polyethylene glycol 3350 (MIRALAX, GLYCOLAX) 17 gram/dose powder Miralax 17 gram/dose powder busPIRone (BUSPAR) 10 mg tablet Take 1 tablet by mouth three times daily. sertraline (ZOLOFT) 100 mg tablet Take 1 tablet by mouth once daily. warfarin (COUMADIN) 2 mg tablet TAKE 2 TABLETS ON SATURDAY, SATURDAY, SATURDAY AND SATURDAY. warfarin (COUMADIN) 1 mg tablet Take as directed by [facility] Anticoagulation Clinic. Cholecalciferol, Vitamin D3, 50 mcg (2,000 unit) cap Take 2 capsules by mouth once daily. aspirin 81 mg chewable tablet Take 81 mg by mouth once daily. FAMILY HISTORY Problem Relation Age of Onset Cancer Mother lung/brain/pancreatic Hypertension Father Cancer Father Colon Arthritis Father Heart Sister no details MVP Arthritis Brother Stroke Paternal Grandfather Multiple Sclerosis Sister No Known Problems Brother Multiple Sclerosis Son Social History Tobacco Use Smoking status: Former Packs/day: 1.00 Years: 7.00 Total pack years: 7.00 Types: Cigarettes Quit date: 01/06/1998 Years since quittin.7 Smokeless tobacco: Never Vaping Use Vaping Use: Never used Substance Use Topics Alcohol use: No Drug use: No PHYSICAL EXAM BP 124/68 Pulse (!) 56 Resp 16 Wt 105.7 kg (233 lb) BMI 38.77 kg/m Appearance: well dressed well groomed, cooperative, and pleasant Behavior: good eye contact Speech: normal and fluent and coherent Mood: happy Affect: appropriate Perceptions: none Thought process: none Thought Content: normal Intelligence level: normal Insight: good Judgment: good ASSESSMENT/PLAN: 1. Dysthymic disorder - ICD9: 300.4, ICD10: F34.1 - much improvement and controlled with current treatment. Will continue. - - Reviewed concept of neurochemical imbalance wth depression/anxiety, treatment options and benefits of counseling in combination with medication. Also reviewed benefits of sleep hygeine, diet and exercise - Follow-up in 3 months or sooner as needed - Instructed patient to contact office or [id number] after-hours promptly should condition worsen or any new symptoms appear. - Counseling Center [facility] and after hours crisis line Prescription instructions reviewed with patient as applicable. Potential red flag symptoms discussed with the patient. Reviewed appropriate action plan to take if red flag symptoms occur. Patient agreeable to treatment plan Tracy Paige APRN.CNP documented in this encounter [facility] 09-25-2022 Miscellaneous Notes The following approved medication requests have been transmitted electronically. Requested Prescriptions Pending Prescriptions Disp Refills methadone (DOLOPHINE) 10 mg tablet 270 tablet 0 Sig: Take 3 tablets by mouth every 8 hours as needed for pain for up to 30 days. Do not start before September 28, 2022. oxyCODONE-acetaminophen (PERCOCET) 5-325 mg tablet 90 tablet 0 Sig: Take 1 tablet by mouth every 8 hours as needed for pain for up to 30 days. Do not start before September 28, 2022. Cristofer Sparks PA-C Patient phones requesting refills as follows: Requested Prescriptions Pending Prescriptions Disp Refills methadone (DOLOPHINE) 10 mg tablet 270 tablet 0 Sig: Take 3 tablets by mouth every 8 hours as needed for pain for up to 30 days. Do not start before September 28, 2022. oxyCODONE-acetaminophen (PERCOCET) 5-325 mg tablet 90 tablet 0 Sig: Take 1 tablet by mouth every 8 hours as needed for pain for up to 30 days. Do not start before September 28, 2022. Please review and advise. Maureen Huston RN documented in this encounter [facility] 09-24-2022 Note HNO ID: [id number] Author: Adama Diallo MD Service: ? Author Type: Physician Type: Progress Notes Filed: 09/25/2022 7:13 AM Note Text: This note was created using [email or web address]. Subjective Stephanie Moore is a 62 year old female. The patient primarily being seen for bilateral knee and right shoulder pain Patient was last seen on: 08/13/22 At that time, the treatment plan was: see notes Current Meds: Methadone last dose lunch time today, Percocet last dose 2 pm today, Cyclobenzaprine last dose not for a couple days,cream last used yesterday Efficacy:meds help pain Side effects: none TENS unit: had one did not help How often used: Benefit: Physical Therapy: Last UDS: 08/13/22 Last injection: none OARRS reviewed yes INTAKE PAIN ASSESSMENT 08/22/2022 09/24/2022 Are you having pain associated with your visit today? No Yes, Provider notified Pain Scales - Verbal (Numeric Rating or Visual Analog Scale) Pain Level - 6 Pain Location - Knee-Left Description - Burning;Sharp Duration Amount of Time - - Duration Units - - Frequency - Intermittent Intervention/Comfort measure - Medication;Cold Comments - - Pain Assessment - - HPI Patient is getting adequate relief from the present regimen and denies any side effect from it except for constipation that is relieved by MiraLAX. This has improved the patient?s level of functionality and has been able to perform activities of daily living. The patient exhibits no aberrant behavior. The PDMP report and last UDS are both consistent with prescribed medications and are unremarkable. Patient has been working on losing weight. Review of Systems Constitutional: Negative. Gastrointestinal: Positive for constipation. Musculoskeletal: Positive for joint pain, joint swelling, stiffness, and arthritis Neurological: Positive for paresthesia and difficulty walking Objective BP 132/60 (BP Site: Left Arm, BP Position: Sitting, BP Cuff Size: Large Adult) Pulse (!) 56 Temp 36.4 ?C (97.6 ?F) Resp 18 Ht 165.1 cm (5' 5 ) Wt 104.3 kg (230 lb) SpO2 97% BMI 38.27 kg/m? Physical Exam Vitals and nursing note reviewed. Constitutional: General: She is not in acute distress. Appearance: Normal appearance. She is obese. HENT: Head: Normocephalic and atraumatic. Right Ear: External ear normal. Left Ear: External ear normal. Nose: Nose normal. Eyes: General: No scleral icterus. Extraocular Movements: Extraocular movements intact. Conjunctiva/sclera: Conjunctivae normal. Musculoskeletal: Right lower leg: Edema present. Left lower leg: Edema present. Comments: The patient walks with a limp. There is increased pain on range of motion of the lumbar spine. Lumbosacral paraspinal muscle spasm and tenderness was present. There is increased pain on weightbearing and range of motion of both knees. Skin: General: Skin is warm and dry. Neurological: General: No focal deficit present. Mental Status: She is alert and oriented to person, place, and time. Comments: Allodynia and hyperpathia present on the right leg. Psychiatric: Mood and Affect: Mood normal. Behavior: Behavior normal. Thought Content: Thought content normal. Assessment and Plan ASSESSMENT/PLAN: 1. Chronic pain syndrome - ICD9: 338.4, ICD10: G89.4 (primary diagnosis) 2. Complex regional pain syndrome type 1 of right lower extremity - ICD9: 337.22, ICD10: G90.521 3. Primary osteoarthritis of both knees - ICD9: 715.16, ICD10: M17.0 4. Plantar fasciitis - ICD9: 728.71, ICD10: M72.2 PLAN: The patient will continue with methadone, Percocet, cyclobenzaprine, and a compounded cream. She was encouraged to increase fluid and fiber intake and to take MiraLAX as needed for opioid-induced constipation. Patient will continue with core strengthening and range of motion exercises. She will continue on losing weight. Repeat EKG in March 2023. Follow-up in office in 6 weeks time. 30 minutes spent for chronic pain management distinct from evaluation and management Two or more stable chronic illness and prescription medication management This document was transcribed using a voice recognition software and may contain minor errors. Adama Diallo MD [facility] 09-24-2022 Instructions Adama Diallo MD - 09/24/2022 4:43 PM EDT The patient will continue with methadone, Percocet, cyclobenzaprine, and a compounded cream. She was encouraged to increase fluid and fiber intake and to take MiraLAX as needed for opioid-induced constipation. Patient will continue with core strengthening and range of motion exercises. She will continue on losing weight. Repeat EKG in March 2023. Follow-up in office in 6 weeks time. documented in this encounter [facility] 09-24-2022 History of Present illness Narrative This note was created using [email or web address]. Subjective Stephanie Moore is a 62 year old female. The patient primarily being seen for bilateral knee and right shoulder pain Patient was last seen on: 08/13/22 At that time, the treatment plan was: see notes Current Meds: Methadone last dose lunch time today, Percocet last dose 2 pm today, Cyclobenzaprine last dose not for a couple days,cream last used yesterday Efficacy:meds help pain Side effects: none TENS unit: had one did not help How often used: Benefit: Physical Therapy: Last UDS: 08/13/22 Last injection: none OARRS reviewed yes INTAKE PAIN ASSESSMENT 08/22/2022 09/24/2022 Are you having pain associated with your visit today? No Yes, Provider notified Pain Scales - Verbal (Numeric Rating or Visual Analog Scale) Pain Level - 6 Pain Location - Knee-Left Description - Burning;Sharp Duration Amount of Time - - Duration Units - - Frequency - Intermittent Intervention/Comfort measure - Medication;Cold Comments - - Pain Assessment - - HPI Patient is getting adequate relief from the present regimen and denies any side effect from it except for constipation that is relieved by MiraLAX. This has improved the patient s level of functionality and has been able to perform activities of daily living. The patient exhibits no aberrant behavior. The PDMP report and last UDS are both consistent with prescribed medications and are unremarkable. Patient has been working on losing weight. Review of Systems Constitutional: Negative. Gastrointestinal: Positive for constipation. Musculoskeletal: Positive for joint pain, joint swelling, stiffness, and arthritis Neurological: Positive for paresthesia and difficulty walking Objective BP 132/60 (BP Site: Left Arm, BP Position: Sitting, BP Cuff Size: Large Adult) Pulse (!) 56 Temp 36.4 C (97.6 F) Resp 18 Ht 165.1 cm (5' 5 ) Wt 104.3 kg (230 lb) SpO2 97% BMI 38.27 kg/m Physical Exam Vitals and nursing note reviewed. Constitutional: General: She is not in acute distress. Appearance: Normal appearance. She is obese. HENT: Head: Normocephalic and atraumatic. Right Ear: External ear normal. Left Ear: External ear normal. Nose: Nose normal. Eyes: General: No scleral icterus. Extraocular Movements: Extraocular movements intact. Conjunctiva/sclera: Conjunctivae normal. Musculoskeletal: Right lower leg: Edema present. Left lower leg: Edema present. Comments: The patient walks with a limp. There is increased pain on range of motion of the lumbar spine. Lumbosacral paraspinal muscle spasm and tenderness was present. There is increased pain on weightbearing and range of motion of both knees. Skin: General: Skin is warm and dry. Neurological: General: No focal deficit present. Mental Status: She is alert and oriented to person, place, and time. Comments: Allodynia and hyperpathia present on the right leg. Psychiatric: Mood and Affect: Mood normal. Behavior: Behavior normal. Thought Content: Thought content normal. Assessment and Plan ASSESSMENT/PLAN: 1. Chronic pain syndrome - ICD9: 338.4, ICD10: G89.4 (primary diagnosis) 2. Complex regional pain syndrome type 1 of right lower extremity - ICD9: 337.22, ICD10: G90.521 3. Primary osteoarthritis of both knees - ICD9: 715.16, ICD10: M17.0 4. Plantar fasciitis - ICD9: 728.71, ICD10: M72.2 PLAN: The patient will continue with methadone, Percocet, cyclobenzaprine, and a compounded cream. She was encouraged to increase fluid and fiber intake and to take MiraLAX as needed for opioid-induced constipation. Patient will continue with core strengthening and range of motion exercises. She will continue on losing weight. Repeat EKG in March 2023. Follow-up in office in 6 weeks time. 30 minutes spent for chronic pain management distinct from evaluation and management Two or more stable chronic illness and prescription medication management This document was transcribed using a voice recognition software and may contain minor errors. Adama Diallo MD documented in this encounter [facility] 09-10-2022 Miscellaneous Notes September 11, 2022 PID: [id number] Stephanie Moore [address] [place] [address] Dear Ms. Moore, We are pleased to inform you that the results of your recent breast imaging exam on 09/07/2022 are normal. Early detection of cancer is very important. We also understand recommendations regarding breast cancer screening are controversial. Please discuss with your primary care provider which strategy is best for you and whether a mammogram is right for you. Your imaging studies and report will be kept on file at [facility] as part of your permanent medical record and are available for your continuing care. Thank you for allowing us to help in meeting your health care needs. Sincerely, Dr. Diaz Interpreting Radiologist [facility] (Normal over 40) documented in this encounter [facility] 09-07-2022 Miscellaneous Notes Patient notified via mychart documented in this encounter [facility] 08-23-2022 Miscellaneous Notes The following approved medication requests have been transmitted electronically. Requested Prescriptions Pending Prescriptions Disp Refills methadone (DOLOPHINE) 10 mg tablet 270 tablet 0 Sig: Take 3 tablets by mouth every 8 hours as needed for pain for up to 30 days. Do not start before August 29, 2022. oxyCODONE-acetaminophen (PERCOCET) 5-325 mg tablet 90 tablet 0 Sig: Take 1 tablet by mouth every 8 hours as needed for pain for up to 30 days. Do not start before August 28, 2022. Cristofer Sparks PA-C Patient phones requesting refills as follows: Requested Prescriptions Pending Prescriptions Disp Refills methadone (DOLOPHINE) 10 mg tablet 270 tablet 0 Sig: Take 3 tablets by mouth every 8 hours as needed for pain for up to 30 days. Do not start before August 29, 2022. oxyCODONE-acetaminophen (PERCOCET) 5-325 mg tablet 90 tablet 0 Sig: Take 1 tablet by mouth every 8 hours as needed for pain for up to 30 days. Do not start before August 28, 2022. Please review and advise. Maureen Huston RN documented in this encounter [facility] 08-22-2022 Note HNO ID: [id number] Author: Tracy Paige APRN.MENTAL HYGIENIST Service: ? Author Type: Nurse Practitioner Type: Progress Notes Filed: 08/24/2022 4:48 PM Note Text: CC: Patient presents with: 6 week f/up HPI Stephanie Moore is a 62 year old female who presents today for follow up on fatigue. Lab work unremarkable except fasting glucose slightly elevated. Denies any new symptoms or concerns. Last visit description Feels like she is always exhausted. Wakes up at 2am so only getting 4 consistent hours of sleep. Tries melatonin. Denies snoring or gasping for breath. Per patient she had a negative sleep study last year. Reports intolerance to heat and feels she is losing hair. No patches of hair loss but feels it is thinning. Denies abnormal weight changes, changes in appetite, or increased thirst hunger or urination. REVIEW OF SYSTEMS General: no fevers, no chills, no night sweats, no recurrent infections, no change in appetite, and no significant changes in weight Respiratory: no cough, no wheezing, no shortness of breath, no hemoptysis Cardiovascular: no chest pain, no chest pressure, no palpitations, and no swelling Neurologic: No headache, weakness, numbness, tingling, dizziness, memory loss, syncope. CP PHQ9 08/22/2022 Little interest or pleasure 2 - More than half the days Feeling down, depressed, hopeless 2 - More than half the days Trouble falling or staying asleep, sleeping too much 1 - Several days Feeling tired, having little energy 2 - More than half the days Poor appetite or overeating 2 - More than half the days Feeling bad about yourself, failure or you have let yourself/family down 2 - More than half the days Trouble concentrating on things 2 - More than half the days Moving or speaking so slowly, or fidgety or restless 0 - Not at all Thoughts that you would be better off , or of hurting yourself in some way 0 - Not at all How difficult have these problems made things Somewhat difficult Interpretation of Total Score 10-14 Moderate depression IGLESIA-7 ANXIETY SCALE 08/22/2022 FEELING NERVOUS,ANXIOUS,OR ON EDGE 1 Several days NOT BEING ABLE TO STOP OR CONTROL WORRYING 1 Several days WORRYING TOO MUCH ABOUT DIFFERENT THINGS 1 Several days TROUBLE RELAXING 1 Several days BEING SO RESTLESS THAT IT'S HARD TO SIT STILL 0 Not at all sure BEING EASILY ANNOYED OR IRRITABLE 0 Not at all sure FEELING AFRAID IF SOMETHING AWFUL MIGHT HAPPEN 0 Not at all sure GAD7 SCORE 4 IF YOU CHECKED OFF ANY PROBLEMS Somewhat difficult 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 Vasculitis ([facility]) PAST SURGICAL HISTORY Procedure Laterality Date ARTHROSCOPY KNEE DIAGNOSTIC W/WO SYNOVIAL BX SPX 1996,1999 Arthroscopy, knee right X 2 ARTHRP INTERPOS INTERCARPAL/METACARPAL JOINTS Left 06/29/2016 Left thumb CMC arthroplasty with ligament reconstruction and tendon interposition DELIVERY ONLY X3 , low cervical COLONOSCOPY FLX DX W/COLLJ SPEC WHEN PFRMD 08/27/2018 Colonoscopy DILATION AND CURETTAGE DXAND/THER NONOBSTETRIC Dilation AND curettage ESOPHAGOGASTRODUODENOSCOPY TRANSORAL DIAGNOSTIC 08/27/2018 EGD LAPS SURG CHOLECYSTECTOMY W/CHOLANGIOGRAPHY 07/19/2005 NEUROPLASTY AND/TRANSPOS MEDIAN NRV CARPAL TUNNE Carpal tunnel decomp bilateral PAST SURGICAL HISTORY OF 2004 removal spinal cord stimulator PAST SURGICAL HISTORY OF right foot tendon release, PAST SURGICAL HISTORY OF 07/2014 Left wrist, first dorsal compartment release PAST SURGICAL HISTORY OF plantar fascitis S SPINAL CORD STIMULATOR, 1999 SPINL CRD STIM MIKAYLA/REM SCS EL TOTAL ABDOMINAL HYSTERECT W/WO RMVL TUBE OVARY Hysterectomy, IMTIAZ ALLERGIES Hydrocodone-Acetaminophen, Opioids - Morphine Analogues, Pentazocine, Propoxyphene, Steri Strips And Paper Tape [Other], and Talacen [Pentazocine-Acetaminophen] MEDICATIONS methadone (DOLOPHINE) 10 mg tablet Take 3 tablets by mouth every 8 hours as needed for pain for up to 30 days. Do not start before July 29, 2022. oxyCODONE-acetaminophen (PERCOCET) 5-325 mg tablet Take 1 tablet by mouth every 8 hours as needed for pain for up to 30 days. Do not start before July 29, 2022. cream base no.103, bulk, crea Apply to affected area as directed. Apply topically 1-2 grams ( 1 pump) to the affected area 3-4 times daily Rub in well mycophenolate Mofetil (CELLCEPT) 500 mg tablet Take 2 tablets by mouth twice daily. cyclobenzaprine (FLEXERIL) 10 mg tablet Take 1 tablet by mouth three times daily as needed for mus (more content not included)... [facility] 08-22-2022 History of Present illness Narrative CC: Patient presents with: 6 week f/up HPI Stephanie Moore is a 62 year old female who presents today for follow up on fatigue. Lab work unremarkable except fasting glucose slightly elevated. Denies any new symptoms or concerns. Last visit description Feels like she is always exhausted. Wakes up at 2am so only getting 4 consistent hours of sleep. Tries melatonin. Denies snoring or gasping for breath. Per patient she had a negative sleep study last year. Reports intolerance to heat and feels she is losing hair. No patches of hair loss but feels it is thinning. Denies abnormal weight changes, changes in appetite, or increased thirst hunger or urination. REVIEW OF SYSTEMS General: no fevers, no chills, no night sweats, no recurrent infections, no change in appetite, and no significant changes in weight Respiratory: no cough, no wheezing, no shortness of breath, no hemoptysis Cardiovascular: no chest pain, no chest pressure, no palpitations, and no swelling Neurologic: No headache, weakness, numbness, tingling, dizziness, memory loss, syncope. CP PHQ9 08/22/2022 Little interest or pleasure 2 - More than half the days Feeling down, depressed, hopeless 2 - More than half the days Trouble falling or staying asleep, sleeping too much 1 - Several days Feeling tired, having little energy 2 - More than half the days Poor appetite or overeating 2 - More than half the days Feeling bad about yourself, failure or you have let yourself/family down 2 - More than half the days Trouble concentrating on things 2 - More than half the days Moving or speaking so slowly, or fidgety or restless 0 - Not at all Thoughts that you would be better off , or of hurting yourself in some way 0 - Not at all How difficult have these problems made things Somewhat difficult Interpretation of Total Score 10-14 Moderate depression IGLESIA-7 ANXIETY SCALE 08/22/2022 FEELING NERVOUS,ANXIOUS,OR ON EDGE 1 Several days NOT BEING ABLE TO STOP OR CONTROL WORRYING 1 Several days WORRYING TOO MUCH ABOUT DIFFERENT THINGS 1 Several days TROUBLE RELAXING 1 Several days BEING SO RESTLESS THAT IT'S HARD TO SIT STILL 0 Not at all sure BEING EASILY ANNOYED OR IRRITABLE 0 Not at all sure FEELING AFRAID IF SOMETHING AWFUL MIGHT HAPPEN 0 Not at all sure GAD7 SCORE 4 IF YOU CHECKED OFF ANY PROBLEMS Somewhat difficult 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 Vasculitis ([facility]) PAST SURGICAL HISTORY Procedure Laterality Date ARTHROSCOPY KNEE DIAGNOSTIC W/WO SYNOVIAL BX SPX 1996,1999 Arthroscopy, knee right X 2 ARTHRP INTERPOS INTERCARPAL/METACARPAL JOINTS Left 06/29/2016 Left thumb CMC arthroplasty with ligament reconstruction and tendon interposition DELIVERY ONLY X3 , low cervical COLONOSCOPY FLX DX W/COLLJ SPEC WHEN PFRMD 08/27/2018 Colonoscopy DILATION & CURETTAGE DX&/THER NONOBSTETRIC Dilation & curettage ESOPHAGOGASTRODUODENOSCOPY TRANSORAL DIAGNOSTIC 08/27/2018 EGD LAPS SURG CHOLECYSTECTOMY W/CHOLANGIOGRAPHY 07/19/2005 NEUROPLASTY &/TRANSPOS MEDIAN NRV CARPAL TUNNE Carpal tunnel decomp bilateral PAST SURGICAL HISTORY OF 2004 removal spinal cord stimulator PAST SURGICAL HISTORY OF right foot tendon release, PAST SURGICAL HISTORY OF 07/2014 Left wrist, first dorsal compartment release PAST SURGICAL HISTORY OF plantar fascitis S SPINAL CORD STIMULATOR, 1999 SPINL CRD STIM MIKAYLA/REM SCS EL TOTAL ABDOMINAL HYSTERECT W/WO RMVL TUBE OVARY Hysterectomy, IMTIAZ ALLERGIES Hydrocodone-Acetaminophen, Opioids - Morphine Analogues, Pentazocine, Propoxyphene, Steri Strips And Paper Tape [Other], and Talacen [Pentazocine-Acetaminophen] MEDICATIONS methadone (DOLOPHINE) 10 mg tablet Take 3 tablets by mouth every 8 hours as needed for pain for up to 30 days. Do not start before July 29, 2022. oxyCODONE-acetaminophen (PERCOCET) 5-325 mg tablet Take 1 tablet by mouth every 8 hours as needed for pain for up to 30 days. Do not start before July 29, 2022. cream base no.103, bulk, crea Apply to affected area as directed. Apply topically 1-2 grams ( 1 pump) to the affected area 3-4 times daily Rub in well mycophenolate Mofetil (CELLCEPT) 500 mg tablet Take 2 tablets by mouth twice daily. cyclobenzaprine (FLEXERIL) 10 mg tablet Take 1 tablet by mouth three times daily as needed for muscle spasm. warfarin (COUMADIN) 5 mg tablet TAKE 1 TABLET BY MOUTH EVERY DAY atorvastatin (LIPITOR) 40 mg tablet Take 1 tablet by mouth once daily. pantoprazole DR (PROTONIX) 20 mg tablet Take 1 tablet by mouth twice daily. Take on empty stomach, 1/2 hr before meal. lidocaine (LIDODERM) 5 % Apply 1 Patch as directed every 12 hours. Lidocaine patch to left ribs on for 12 hours and then off for 12 hours ascorbic acid, vitamin C, (VITAMIN C) 500 mg tablet Take 500 mg by mouth twice daily. metoprolol tartrate, short acting, (LOPRESSOR) 25 mg tablet ondansetron (ZOFRAN) 4 mg tablet AT BEDTIME polyethylene glycol 3350 (MIRALAX, GLYCOLAX) 17 gram/dose powder Miralax 17 gram/dose powder busPIRone (BUSPAR) 10 mg tablet Take 1 tablet by mouth three times daily. sertraline (ZOLOFT) 100 mg tablet Take 1 tablet by mouth once daily. Cholecalciferol, Vitamin D3, 50 mcg (2,000 unit) cap Take 2 capsules by mouth once daily. aspirin 81 mg chewable tablet Take 81 mg by mouth once daily. warfarin (COUMADIN) 2 mg tablet TAKE 2 TABLETS ON SATURDAY, SATURDAY, SATURDAY AND SATURDAY. warfarin (COUMADIN) 1 mg tablet Take as directed by [facility] Anticoagulation Clinic. FAMILY HISTORY Problem Relation Age of Onset Cancer Mother lung/brain/pancreatic Hypertension Father Cancer Father Colon Arthritis Father Heart Sister no details MVP Arthritis Brother Stroke Paternal Grandfather Multiple Sclerosis Sister No Known Problems Brother Multiple Sclerosis Son Social History Tobacco Use Smoking status: Former Packs/day: 1.00 Years: 7.00 Pack years: 7.00 Types: Cigarettes Quit date: 01/06/1998 Years since quittin.6 Smokeless tobacco: Never Vaping Use Vaping Use: Never used Substance Use Topics Alcohol use: No Drug use: No PHYSICAL EXAM BP 122/64 (BP Site: Left Arm, BP Position: Sitting, BP Cuff Size: Large Adult) Pulse 62 Resp 16 Wt 108.2 kg (238 lb 9.6 oz) BMI 39.71 kg/m General Appearance: well appearing, in no acute distress, alert Pysch: mood and affect broad and appropriate Eyes: conjunctiva pink and moist, no icterus, sclera white, non-injected Health maintenance reviewed with patient: BP CONTROLLED (<130/80) Never done MAMMOGRAM due on 06/16/2022 SHINGRIX VACCINE(1 of 2) due on 01/08/2023 PNEUMOCOCCAL(2 - PPSV23 if available, else PCV20) due on 01/08/2023 ANNUAL PCP TEAM CHRONIC DISEASE VISIT due on 07/12/2023 COLORECTAL CANCER SCREENING due on 08/28/2023 DIABETES SCREEN due on 07/14/2025 LIPID SCREEN due on 07/15/2027 DTAP,TDAP,TD(2 - Td or Tdap) due on 09/16/2031 INFLUENZA Completed HEPATITIS C SCREENING Completed COVID-19 VACCINE Completed PAP TESTING Discontinued HPV TESTING Discontinued HIV SCREENING Discontinued DATA REVIEWED: Most recent labs ASSESSMENT/PLAN: 1. Other fatigue - ICD9: 780.79, ICD10: R53.83 (primary diagnosis) - possible result of depression and poor sleep 2. Dysthymic disorder - ICD9: 300.4, ICD10: F34.1 - discussed options of starting wellbutrin for depression and hopefully with added motivation during the day or start trazadone to help with depression and sleep. Patient agreeable to start wellbutrin at this time - Reviewed concept of neurochemical imbalance wth depression/anxiety, treatment options and benefits of counseling in combination with medication. Also reviewed benefits of sleep hygeine, diet and exercise - Follow-up in 6 weeks or sooner as needed - Instructed patient to contact office or [id number] after-hours promptly should condition worsen or any new symptoms appear. - [facility] [place] [facility] and after hours crisis line 3. Elevated glucose - ICD9: 790.29, ICD10: R73.09 - HEMOGLOBIN A1C (POC) Prescription instructions reviewed with patient as applicable. Potential red flag symptoms discussed with the patient. Reviewed appropriate action plan to take if red flag symptoms occur. Patient agreeable to treatment plan. Tracy Paige APRN.CNP documented in this encounter [facility] 08-13-2022 Note HNO ID: [id number] Author: Adama Diallo MD Service: ? Author Type: Physician Type: Progress Notes Filed: 08/14/2022 7:13 AM Note Text: This note was created using Asthmatrackerriter. Subjective Stephanie Moore is a 62 year old female. The patient primarily being seen for bilateral knee, right shoulder pain Patient was last seen on: 06/20/22 At that time, the treatment plan was: see notes Current Meds: Methadone - last dose noon, Percocet - this am, Cyclobenzaprine - couple days ago, Compounding Cream - this am Efficacy: help Side effects: none TENS unit: had one but didn't help How often used: Benefit: Physical Therapy: Last UDS: 08/13/22 Last injection: none OARRS reviewed INTAKE PAIN ASSESSMENT 08/13/2022 08/13/2022 Are you having pain associated with your visit today? Yes, Provider notified - Pain Scales Verbal (Numeric Rating or Visual Analog Scale) - Pain Level 7 5 Pain Location Knee-Left Shoulder-Right Description Aching;Dull;Burning;Sharp;Stabbing Sharp;Aching;Dull Duration Amount of Time - - Duration Units Years Years Frequency Continuous Continuous Intervention/Comfort measure Medication;Cold Medication;Cold Comments - - Pain Assessment - - HPI Patient is getting adequate relief from the present regimen and denies any side effect from it except for occasional constipation that is relieved by MiraLAX. This has improved the patient?s level of functionality and has been able to perform activities of daily living. The patient exhibits no aberrant behavior. The PDMP report and last UDS are both consistent with prescribed medications and are unremarkable. Review of Systems Constitutional: Negative. Gastrointestinal: Positive for constipation. Musculoskeletal: Positive for joint pain, joint swelling, stiffness, and arthritis Neurological: Positive for paresthesia and difficulty walking Objective BP 141/66 (BP Site: Left Arm, BP Position: Sitting, BP Cuff Size: Large Adult) Pulse (!) 54 Temp 36.4 ?C (97.6 ?F) (Temporal) Ht 165.1 cm (5' 5 ) Wt 101.6 kg (224 lb) SpO2 98% BMI 37.28 kg/m? Physical Exam Vitals and nursing note reviewed. Constitutional: General: She is not in acute distress. Appearance: Normal appearance. She is obese. HENT: Head: Normocephalic and atraumatic. Right Ear: External ear normal. Left Ear: External ear normal. Nose: Nose normal. Eyes: General: No scleral icterus. Extraocular Movements: Extraocular movements intact. Conjunctiva/sclera: Conjunctivae normal. Musculoskeletal: Right lower leg: Edema present. Left lower leg: Edema present. Comments: The patient walks with a limp. There is increased pain on range of motion of the lumbar spine. Lumbosacral paraspinal muscle spasm and tenderness was present. There is increased pain on weightbearing and range of motion of both knees. Skin: General: Skin is warm and dry. Neurological: General: No focal deficit present. Mental Status: She is alert and oriented to person, place, and time. Comments: Allodynia and hyperpathia present on the right leg. Psychiatric: Mood and Affect: Mood normal. Behavior: Behavior normal. Thought Content: Thought content normal. Assessment and Plan ASSESSMENT/PLAN: 1. Chronic pain syndrome - ICD9: 338.4, ICD10: G89.4 (primary diagnosis) 2. Complex regional pain syndrome type 1 of right lower extremity - ICD9: 337.22, ICD10: G90.521 3. Primary osteoarthritis of both knees - ICD9: 715.16, ICD10: M17.0 4. Plantar fasciitis - ICD9: 728.71, ICD10: M72.2 5. 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 FLEX 23, URINE PLAN: Repeat urine drug screen this visit. The patient will continue with methadone, Percocet, cyclobenzaprine, and a compounded cream. Increase fluid and fiber intake and take MiraLAX as needed for opioid-induced constipation. Patient will continue with core strengthening and range of motion exercises. Weight reduction. Repeat EKG in March 2023. Follow-up in office in 6 weeks time. 30 minutes spent for chronic pain management distinct from evaluation and management Two or more stable chronic illness and prescription medication management This document was transcribed using a voice recognition software and may contain minor errors. Adama Diallo MD [facility] 07-31-2022 Miscellaneous Notes [facility] Ambulatory Pharmacy Anticoagulation Clinic Anticoagulation Episode Summary Anticoagulation Care Providers Provider Role Specialty Phone number Anuj Hanson MD Referring Internal Medicine [phone] Jose Beltran DO Responsible Hematology/Oncology [phone] Stephanie Moore is a 62 year old year old female patient being evaluated today for a Telemanagement visit. Patient is currently on the following anticoagulant(s) Warfarin. Labs PT INR (no units) Date Value 05/10/2022 2.0 (Biotel) 05/30/2021 2.3 biotel 05/17/2021 1.8 (biotel) INR Home CoaguChek (no units) Date Value 07/31/2022 2.7 07/17/2022 2.7 07/03/2022 3.0 Hemoglobin (g/dL) Date Value 07/14/2022 12.6 03/19/2020 11.3 Hematocrit (%) Date Value 07/14/2022 40.5 03/19/2020 38.7 Platelet Count (k/uL) Date Value 07/14/2022 226 03/19/2020 270 Creatinine (mg/dL) Date Value 07/14/2022 0.60 03/28/2022 0.54 11/20/2021 0.57 03/19/2020 0.75 03/15/2020 0.80 10/13/2019 0.73 Bilirubin, Total (mg/dL) Date Value 07/14/2022 0.6 03/19/2020 0.4 ALT (U/L) Date Value 07/14/2022 31 03/19/2020 17 AST (U/L) Date Value 07/14/2022 30 03/19/2020 22 Estimated Creatinine Clearance: 123.3 mL/min (based on SCr of 0.6 mg/dL). ALLERGIES Allergen Reactions Hydrocodone-Acetami* Unknown Opioids - Morphine * vicodin Pentazocine talwin Propoxyphene darvacet Steri Strips And Pa* Talacen [Pentazocin* Mental Status Change Indication for Warfarin: Anticoagulation Episode Summary Current INR goal: 2.0-3.0 Assessment: INR result of 2.7 is therapeutic Plan: Current Warfarin Dosing As of 07/31/2022 Full warfarin instructions: 5 mg every day Sent [place]_ message Advised patient to continue current weekly dose as noted above Next home INR check scheduled on 08/14/2022 Adele Menon RPh Clinical Pharmacist, Pharmacy Anticoagulation Clinic Pharmacy Anticoagulation Clinic Pager: [phone]. documented in this encounter [facility] 07-18-2022 Note Patient Outreach (IN TMM[facility]) STEPHANIE MOORE ([id number]) 1960 F Date Time Provider Department 07/18/22 ANUJ HANSON During your visit today, we recorded the following information about you: Allergies As of Date: 07/18/2022 Noted Allergy Reaction HYDROCODONE-ACETAMINOPHEN 05/27/2017 16 - Unknown OPIOIDS - MORPHINE ANALOGUES 08/29/2000 Comments: vicodin PENTAZOCINE 08/29/2000 Comments: talwin PROPOXYPHENE 08/29/2000 Comments: darvacet steri strips and paper tape [Othe*12/30/2006 TALACEN (PENTAZOCINE-ACETAMINOPHE*08/21/19 06 1 - Mental Status Change Date Reviewed: 06/20/2022 Reviewed by: Adama Diallo MD - Fully Assessed Visit Diagnosis:Encounter for screening mammogram for breast cancer [Z12.31] Order(s):DARWIN SCREENING [[id number]] Order #: [id number] FUTURE Prescriptions as of 07/23/2022 - cream base no.103, bulk, crea Apply to affected area as directed. Apply topically 1-2 grams ( 1 pump) to the affected area 3-4 times daily Rub in well - mycophenolate Mofetil (CELLCEPT) 500 mg tablet Take 2 tablets by mouth twice daily. - cyclobenzaprine (FLEXERIL) 10 mg tablet Take 1 tablet by mouth three times daily as needed for muscle spasm. - oxyCODONE-acetaminophen (PERCOCET) 5-325 mg tablet Take 1 tablet by mouth every 8 hours as needed for pain for up to 30 days. Do not start before June 29, 2022. - methadone (DOLOPHINE) 10 mg tablet Take 3 tablets by mouth every 8 hours as needed for pain for up to 30 days. Do not start before June 29, 2022. - fluticasone (FLONASE) 50 mcg/actuation nasal spray Use 2 Sprays in each nostril once daily. Rinse mouth after use. for nasal congestion and drainage - warfarin (COUMADIN) 5 mg tablet TAKE 1 TABLET BY MOUTH EVERY DAY - atorvastatin (LIPITOR) 40 mg tablet Take 1 tablet by mouth once daily. - pantoprazole DR (PROTONIX) 20 mg tablet Take 1 tablet by mouth twice daily. Take on empty stomach, 1/2 hr before meal. - lidocaine (LIDODERM) 5 % Apply 1 Patch as directed every 12 hours. Lidocaine patch to left ribs on for 12 hours and then off for 12 hours - ascorbic acid, vitamin C, (VITAMIN C) 500 mg tablet Take 500 mg by mouth twice daily. - metoprolol tartrate, short acting, (LOPRESSOR) 25 mg tablet - ondansetron (ZOFRAN) 4 mg tablet AT BEDTIME - polyethylene glycol 3350 (MIRALAX, GLYCOLAX) 17 gram/dose powder Miralax 17 gram/dose powder - busPIRone (BUSPAR) 10 mg tablet Take 1 tablet by mouth three times daily. - sertraline (ZOLOFT) 100 mg tablet Take 1 tablet by mouth once daily. - warfarin (COUMADIN) 2 mg tablet TAKE 2 TABLETS ON SATURDAY, SATURDAY, SATURDAY AND SATURDAY. - warfarin (COUMADIN) 1 mg tablet Take as directed by [facility]. - Cholecalciferol, Vitamin D3, 50 mcg (2,000 unit) cap Take 2 capsules by mouth once daily. - aspirin 81 mg chewable tablet Take 81 mg by mouth once daily. 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] 01/03/2018 Stenosis of right internal carotid artery [I65.*01/03/2018 TIA (transient ischemic attack) [G45.9] 02/12/2018 Acute angle-closure glaucoma of left eye [H40.2*02/13/2018 Sinus bradycardia [R00.1] 02/13/2018 Leukocytosis [D72.829] 02/13/2018 02/14/2018 PONV (postoperative nausea and vomiting) [R11.2*08/15/2018 Hypokalemia [E87.6] 08/15/2018 residential (current) use of anticoagulants [Z79.*12/29/2018 Lupus anticoagulant positive [R76.0] 04/07/2019 residential (current) use of opiate analgesic [Z7*01/31/2018 Osteoarthritis of knee [M17.9] 05/27/2017 Plantar fasciitis [M72.2] 05/27/2017 Primary osteoarthritis of both knees [M17.0] 09/25/2021 Chronic pain syndrome [G89.4] 05/09/2022 Primary hypertension [I10] 07/13/2022 Mixed hyperlipidemia [E78.2] 07/13/2022 Encounter Status:Closed by [employer], PRODUSER on 07/23/22 [facility] 07-11-2022 Note HNO ID: [id number] Author: Tracy Paige APRN.JOSE Service: ? Author Type: Nurse Practitioner Type: Progress Notes Filed: 07/18/2022 7:13 AM Note Text: CC: Patient presents with: Recheck: 6 month follow up HPI Stephanie Moore is a 62 year old female who presents today for routine 6 month follow up. DVT Prophylaxis: Had a DVT in right leg post knee surgery many years ago. Was found to have Factor 5 leiden mutation and lupus. Also had Ischemic CVA in 2018. Has been on coumadin since and would like to switch to eliquis. HTN/HLD/History of A-fib: Ms. Moore indicates that she is feeling well and denies any symptoms referable to elevated blood pressure. Specifically denies headache, chest pain, dyspnea, and peripheral edema. Patient denies any side effects of her medication(s) and is compliant with their regimen. She does not check BP's generally. Stephanie denies regular aerobic exercise but works at [employer] and walks a lot 5 days a week. She watches her diet for sodium, low fat and low cholesterol some of the time. Last 3 Encounter BP Readings: Date: BP: 07/11/2022 128/70 06/20/2022 135/60 06/19/2022 130/70 Has palpitaitons occasionally at night for a few minutes at night. Cardiology aware of this. Had a normal echo last July. No medication changes or concerns at last appointment. Feels like she is always exhausted. Wakes up at 2am so only getting 4 consistent hours of sleep. Tries melatonin. Denies snoring or gasping for breath. Per patient she had a negative sleep study last year. Reports intolerance to heat and feels she is losing hair. No patches of hair loss but feels it is thinning. Denies abnormal weight changes, changes in appetite, or increased thirst hunger or urination. REVIEW OF SYSTEMS General: no fevers, no chills, no night sweats, no recurrent infections, no change in appetite, and no significant changes in weight Respiratory: no cough, no wheezing, no shortness of breath, no hemoptysis Cardiovascular: no chest pain, no chest pressure, no palpitations, and no swelling GI: No nausea, vomiting, or diarrhea Endocrine: no weight gain, no weight loss, no cold intolerance, no polyuria, no polyphagia, and no polydipsia Neurologic: No headache, weakness, numbness, tingling, dizziness, memory loss, syncope. 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 Vasculitis ([facility]) PAST SURGICAL HISTORY Procedure Laterality Date ARTHROSCOPY KNEE DIAGNOSTIC W/WO SYNOVIAL BX SPX 1996,1999 Arthroscopy, knee right X 2 ARTHRP INTERPOS INTERCARPAL/METACARPAL JOINTS Left 06/29/2016 Left thumb CMC arthroplasty with ligament reconstruction and tendon interposition DELIVERY ONLY X3 , low cervical COLONOSCOPY FLX DX W/COLLJ SPEC WHEN PFRMD 08/27/2018 Colonoscopy DILATION AND CURETTAGE DXAND/THER NONOBSTETRIC Dilation AND curettage ESOPHAGOGASTRODUODENOSCOPY TRANSORAL DIAGNOSTIC 08/27/2018 EGD LAPS SURG CHOLECYSTECTOMY W/CHOLANGIOGRAPHY 07/19/2005 NEUROPLASTY AND/TRANSPOS MEDIAN NRV CARPAL TUNNE Carpal tunnel decomp bilateral PAST SURGICAL HISTORY OF 2004 removal spinal cord stimulator PAST SURGICAL HISTORY OF right foot tendon release, PAST SURGICAL HISTORY OF 07/2014 Left wrist, first dorsal compartment release PAST SURGICAL HISTORY OF plantar fascitis S SPINAL CORD STIMULATOR, 1999 SPINL CRD STIM MIKAYLA/REM SCS EL TOTAL ABDOMINAL HYSTERECT W/WO RMVL TUBE OVARY Hysterectomy, IMTIAZ ALLERGIES Hydrocodone-Acetaminophen, Opioids - Morphine Analogues, Pentazocine, Propoxyphene, Steri Strips And Paper Tape [Other], and [place] [Pentazocine-Acetaminophen] MEDICATIONS mycophenolate Mofetil (CELLCEPT) 500 mg tablet Take 2 tablets by mouth twice daily. cyclobenzaprine (FLEXERIL) 10 mg tablet Take 1 tablet by mouth three times daily as needed for muscle spasm. oxyCODONE-acetaminophen (PERCOCET) 5-325 mg tablet Take 1 tablet by mouth every 8 hours as needed for pain for up to 30 days. Do not start before June 29, 2022. methadone (DOLOPHINE) 10 mg tablet Take 3 tablets by mouth every 8 hours as needed for pain for up to 30 days. Do not start before June 29, 2022. benzonatate (TESSALON PERLES) 100 mg capsule Take 1-2 capsules by mouth three times daily as needed for cough. methylPREDNISolone (MEDROL DOSE-PACK) 4 mg Dose-Pack Take medications as directed on packaging. Take with food. albuterol HFA (PROVENTIL HFA, VENTOLIN HFA) 90 mcg/actuation inhaler Inhale 2 Puffs as instructed every 4 hours as needed. flut (more content not included)... [facility] 07-06-2022 Miscellaneous Notes Most recent Rheumatology visit: 11/16/2021 (with Daksha Ybarra) Recent Office Visits - This Specialty 11/16/2021 Cerebral vascular disorder Rheumatology Daksha Krishnamurthy MD 03/25/2019 Vasculopathy Rheumatology Daksha Krishnamurthy MD 09/18/2018 Vasculopathy Rheumatology Daksha Krishnamurthy MD Upcoming Rheumatology Appointments - Next 365 Days No appointments to display CBC: CBC Latest Ref Rng & Units 11/20/2021 03/28/2022 WBC 3.70 - 11.00 k/uL 6.22 5.94 HEMOGLOBIN 11.5 - 15.5 g/dL 11.4(L) 11.9 HEMOGLOBIN, KINZA 12.0 - 16.0 g/dL - - HEMATOCRIT 36.0 - 46.0 % 35.3(L) 37.9 PLATELETS 150 - 400 k/uL 229 222 ABS NEUT (ANC) 1.45 - 7.50 k/uL 3.23 3.08 ABS NEUT, KINZA 2.0 - 8.1 k/uL - - ABS LYMP, KINZA 1.0 - 5.5 k/uL - - ABS LYMPH 1.00 - 4.00 k/uL 2.07 2.04 Vitamin D: None on file in the last 6 months LFT: CMP Latest Ref Rng & Units 11/20/2021 03/28/2022 SODIUM 136 - 144 mmol/L 142 142 SODIUM, KINZA 136 - 145 mmol/L - - SODIUM, KINZA 136 - 145 mmol/L - - POTASSIUM 3.7 - 5.1 mmol/L 3.5(L) 3.7 POTASSIUM, KINZA 3.5 - 5.1 mmol/L - - CHLORIDE 97 - 105 mmol/L 107(H) 107(H) CHLORIDE, KINZA 98 - 107 mmol/L - - CO2 22 - 30 mmol/L 26 27 CO2, KINZA 21.0 - 32.0 mmol/L - - GLUCOSE 74 - 99 mg/dL 109(H) 99 GLUCOSE, KINZA 70 - 99 mg/dL - - BUN 7 - 21 mg/dL 8 10 BUN, KINZA 7 - 18 mg/dL - - CREATININE 0.58 - 0.96 mg/dL 0.57(L) 0.54(L) CREATININE, KINZA 0.6 - 1.0 mg/dL - - CALCIUM, KINZA 8.5 - 10.1 mg/dL - - CALCIUM, TOTAL 8.5 - 10.2 mg/dL 8.5 8.7 AST 13 - 35 U/L 34 34 AST, KINZA 15 - 37 U/L - - ALT 7 - 38 U/L 39(H) 41(H) ALT, KINZA 30 - 65 U/L - - ALKALINE PHOSPHATASE 34 - 123 U/L 75 78 Hepatic Function: Creatinine: Creatinine Latest Ref Rng & Units 11/20/2021 03/28/2022 CREAT 0.58 - 0.96 mg/dL 0.57(L) 0.54(L) ESR/CRP: None on file in the last 6 months Uric Acid: None on file in the last 6 months Open Standing (Multiple Instance) Lab Orders Remain Interval Expires Ordered Last Rel. PROTHROMBIN TIME/PT [SQPT] 98/99 02/27/23 02/27/22 03/28/22 Auth. 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 Please let her know that I sent a prescription for Augmentin to [facility]. She should pick this up and start taking today. Patient calls and states that cough is getting worse and she now has started having a temperature of 101.5. Patient unsure if it was too soon to call. Patient unsure what to do since cough has gotten worse and since she has a fever? Please review and advise, Talita Kemp RN documented in this encounter [facility] 06-20-2022 Note HNO ID: [id number] Author: Adama Diallo MD Service: ? Author Type: Physician Type: Progress Notes Filed: 06/21/2022 3:47 PM Note Text: This note was created using [employer]. Subjective Stephanie Moore is a 62 year old female. The patient primarily being seen for bilateral knee, right shoulder pain Patient was last seen on: 05/09/22 At that time, the treatment plan was: see notes Current Meds: Methadone - last dose noon, Percocet - this afternoon,Cyclobenzaprine - has been a while, Compounding Cream - need to call for refills Efficacy: help Side effects: none TENS unit: had one but didn't help How often used: Benefit: Physical Therapy: recently - [facility] Last UDS: 02/14/22 Last injection: none OARRS reviewed INTAKE PAIN ASSESSMENT 06/19/2022 06/20/2022 Are you having pain associated with your visit today? No Yes, Provider notified Pain Scales - Verbal (Numeric Rating or Visual Analog Scale) Pain Level - 5 Pain Location - Shoulder-Right Description - Sharp;Stabbing Duration Amount of Time - - Duration Units - Years Frequency - Continuous Intervention/Comfort measure - Medication;Cold Comments - - Pain Assessment - - HPI Patient is getting adequate relief from the present regimen and denies any side effect from it except for constipation that is relieved by MiraLAX. This has improved the patient?s level of functionality and has been able to perform activities of daily living. The patient exhibits no aberrant behavior. The PDMP report and last UDS are both consistent with prescribed medications and are unremarkable. Her worst pain is on her knees. She has had knee steroid injection in the past which did not help. Review of Systems Constitutional: Negative. Gastrointestinal: Positive for constipation. Musculoskeletal: Positive for joint pain, joint swelling, stiffness, and arthritis Neurological: Positive for paresthesia and difficulty walking Objective BP 135/60 (BP Site: Left Arm, BP Position: Sitting, BP Cuff Size: Large Adult) Pulse (!) 50 Temp 36.3 ?C (97.3 ?F) (Temporal) Resp 20 Ht 165.1 cm (5' 5 ) Wt 110.7 kg (244 lb) SpO2 96% BMI 40.60 kg/m? Physical Exam Vitals and nursing note reviewed. Constitutional: General: She is not in acute distress. Appearance: Normal appearance. She is obese. HENT: Head: Normocephalic and atraumatic. Right Ear: External ear normal. Left Ear: External ear normal. Nose: Nose normal. Eyes: General: No scleral icterus. Extraocular Movements: Extraocular movements intact. Conjunctiva/sclera: Conjunctivae normal. Musculoskeletal: Comments: The patient walks with a limp. There is increased pain on range of motion of the lumbar spine. Lumbosacral paraspinal muscle spasm and tenderness was present. There is increased pain on weightbearing and range of motion of both knees. Skin: General: Skin is warm and dry. Neurological: General: No focal deficit present. Mental Status: She is alert and oriented to person, place, and time. Comments: Allodynia and hyperpathia present on the right leg. Psychiatric: Mood and Affect: Mood normal. Behavior: Behavior normal. Thought Content: Thought content normal. Assessment and Plan ASSESSMENT/PLAN: 1. Chronic pain syndrome - ICD9: 338.4, ICD10: G89.4 (primary diagnosis) 2. Complex regional pain syndrome type 1 of right lower extremity - ICD9: 337.22, ICD10: G90.521 3. Primary osteoarthritis of both knees - ICD9: 715.16, ICD10: M17.0 4. Plantar fasciitis - ICD9: 728.71, ICD10: M72.2 PLAN: The patient will continue with methadone, Percocet, cyclobenzaprine, and a compounded cream. She was encouraged to increase fluid and fiber intake and to take MiraLAX as needed for opioid-induced constipation. Patient was encouraged to do core strengthening and range of motion exercises. She was encouraged to lose weight. Repeat EKG in March 2023. I discussed with her the options of doing knee viscosupplementation and/or genicular nerve radiofrequency ablation. Follow-up in office in 6 weeks time. 30 minutes spent for chronic pain management distinct from evaluation and management Two or more stable chronic illness and prescription medication management This document was transcribed using a voice recognition software and may contain minor errors. Adama Diallo MD [facility] 06-20-2022 Instructions Adama Diallo MD - 06/20/2022 4:38 PM EDT The patient will continue with methadone, Percocet, cyclobenzaprine, and a compounded cream. She was encouraged to increase fluid and fiber intake and to take MiraLAX as needed for opioid-induced constipation. Patient was encouraged to do core strengthening and range of motion exercises. She was encouraged to lose weight. Repeat EKG in March 2023. I discussed with her the options of doing knee viscosupplementation and/or genicular nerve radiofrequency ablation. Follow-up in office in 6 weeks time. documented in this encounter [facility] 06-20-2022 History of Present illness Narrative This note was created using [employer]. Subjective Stephanie Moore is a 62 year old female. The patient primarily being seen for bilateral knee, right shoulder pain Patient was last seen on: 05/09/22 At that time, the treatment plan was: see notes Current Meds: Methadone - last dose noon, Percocet - this afternoon,Cyclobenzaprine - has been a while, Compounding Cream - need to call for refills Efficacy: help Side effects: none TENS unit: had one but didn't help How often used: Benefit: Physical Therapy: recently - [facility] Last UDS: 02/14/22 Last injection: none OARRS reviewed INTAKE PAIN ASSESSMENT 06/19/2022 06/20/2022 Are you having pain associated with your visit today? No Yes, Provider notified Pain Scales - Verbal (Numeric Rating or Visual Analog Scale) Pain Level - 5 Pain Location - Shoulder-Right Description - Sharp;Stabbing Duration Amount of Time - - Duration Units - Years Frequency - Continuous Intervention/Comfort measure - Medication;Cold Comments - - Pain Assessment - - HPI Patient is getting adequate relief from the present regimen and denies any side effect from it except for constipation that is relieved by MiraLAX. This has improved the patient s level of functionality and has been able to perform activities of daily living. The patient exhibits no aberrant behavior. The PDMP report and last UDS are both consistent with prescribed medications and are unremarkable. Her worst pain is on her knees. She has had knee steroid injection in the past which did not help. Review of Systems Constitutional: Negative. Gastrointestinal: Positive for constipation. Musculoskeletal: Positive for joint pain, joint swelling, stiffness, and arthritis Neurological: Positive for paresthesia and difficulty walking Objective BP 135/60 (BP Site: Left Arm, BP Position: Sitting, BP Cuff Size: Large Adult) Pulse (!) 50 Temp 36.3 C (97.3 F) (Temporal) Resp 20 Ht 165.1 cm (5' 5 ) Wt 110.7 kg (244 lb) SpO2 96% BMI 40.60 kg/m Physical Exam Vitals and nursing note reviewed. Constitutional: General: She is not in acute distress. Appearance: Normal appearance. She is obese. HENT: Head: Normocephalic and atraumatic. Right Ear: External ear normal. Left Ear: External ear normal. Nose: Nose normal. Eyes: General: No scleral icterus. Extraocular Movements: Extraocular movements intact. Conjunctiva/sclera: Conjunctivae normal. Musculoskeletal: Comments: The patient walks with a limp. There is increased pain on range of motion of the lumbar spine. Lumbosacral paraspinal muscle spasm and tenderness was present. There is increased pain on weightbearing and range of motion of both knees. Skin: General: Skin is warm and dry. Neurological: General: No focal deficit present. Mental Status: She is alert and oriented to person, place, and time. Comments: Allodynia and hyperpathia present on the right leg. Psychiatric: Mood and Affect: Mood normal. Behavior: Behavior normal. Thought Content: Thought content normal. Assessment and Plan ASSESSMENT/PLAN: 1. Chronic pain syndrome - ICD9: 338.4, ICD10: G89.4 (primary diagnosis) 2. Complex regional pain syndrome type 1 of right lower extremity - ICD9: 337.22, ICD10: G90.521 3. Primary osteoarthritis of both knees - ICD9: 715.16, ICD10: M17.0 4. Plantar fasciitis - ICD9: 728.71, ICD10: M72.2 PLAN: The patient will continue with methadone, Percocet, cyclobenzaprine, and a compounded cream. She was encouraged to increase fluid and fiber intake and to take MiraLAX as needed for opioid-induced constipation. Patient was encouraged to do core strengthening and range of motion exercises. She was encouraged to lose weight. Repeat EKG in March 2023. I discussed with her the options of doing knee viscosupplementation and/or genicular nerve radiofrequency ablation. Follow-up in office in 6 weeks time. 30 minutes spent for chronic pain management distinct from evaluation and management Two or more stable chronic illness and prescription medication management This document was transcribed using a voice recognition software and may contain minor errors. Adama Diallo MD documented in this encounter [facility] 06-19-2022 Note HNO ID: [id number] Author: Amber Savage APRN.GUMMED TAPE PRESS OPERATOR Service: ? Author Type: Nurse Specialist Type: Progress Notes Filed: 06/19/2022 4:54 PM Note Text: PCP: Anuj Hanson MD CHRISTOPHER Moore is a 62 year old female who presents with 2 days of symptoms that are stable. Negative Covid test at home Symptoms include: Fever (?100.4F): No or Chills: No Cough: Yes, productive Shortness of breath: No or Difficulty breathing: No Fatigue: Yes Muscle aches: No Headache: Yes New loss of smell or taste: No Sore throat: Yes Nasal congestion: Yes or Rhinorrhea: Yes Nausea: No or Vomiting: No Diarrhea: No OTC meds/remedies that patient has tried: OTC cold medicine. High risk category assessment Morbid Obesity (BMI>40) Exposures: Sick contacts? No Family or close contacts with confirmed/probable COVID-19 in last 14 days? No OBJECTIVE PHYSICAL EXAM: BP 130/70 Pulse 64 Resp 16 Wt 110.7 kg (244 lb) SpO2 99% BMI 40.60 kg/m? General appearance: tired/ill appearing, alert, cooperative, pleasant, in no acute distress Head: Normocephalic Eyes: conjunctiva/corneas normal Ears: R TM - clear with good landmarks, nl light reflex, L TM - clear with good landmarks, nl light reflex Nose: clear rhinorrhea, mucosa erythematous and swollen Oropharynx: moist without lesions Neck: supple and small, benign anterior cervical nodes bilaterally Heart: regular rate and rhythm, without murmur Lungs: clear to auscultation, without rales or wheeze, good air exchange ASSESSMENT/PLAN (R05.1) Acute cough (primary encounter diagnosis) (J06.9) Acute URI (R06.2) Wheezing ASSESSMENT/PLAN: 1. Acute cough - ICD9: 786.2, ICD10: R05.1 (primary diagnosis) - BENZONATATE 100 MG CAPSULE - METHYLPREDNISOLONE 4 MG TABLETS IN A DOSE PACK - ALBUTEROL SULFATE HFA 90 MCG/ACTUATION AEROSOL INHALER - FLUTICASONE PROPIONATE 50 MCG/ACTUATION NASAL SPRAY,SUSPENSION 2. Acute URI - ICD9: 465.9, ICD10: J06.9 - BENZONATATE 100 MG CAPSULE - METHYLPREDNISOLONE 4 MG TABLETS IN A DOSE PACK - ALBUTEROL SULFATE HFA 90 MCG/ACTUATION AEROSOL INHALER - FLUTICASONE PROPIONATE 50 MCG/ACTUATION NASAL SPRAY,SUSPENSION 3. Wheezing - ICD9: 786.07, ICD10: R06.2 Albuterol nebulizer or inhaler as needed She will let us know if not feeling improved. Amber Savage, BOB.GUMMED TAPE PRESS OPERATOR Medical Decision Making: Problems: Moderate: Acute illness with systemic symptoms Risk: Moderate: Drug management Medical Decision Making Level: 4 - Moderate [facility] 06-19-2022 History of Present illness Narrative PCP: Anuj Hanson MD CHRISTOPHER Moore is a 62 year old female who presents with 2 days of symptoms that are stable. Negative Covid test at home Symptoms include: Fever (?100.4F): No or Chills: No Cough: Yes, productive Shortness of breath: No or Difficulty breathing: No Fatigue: Yes Muscle aches: No Headache: Yes New loss of smell or taste: No Sore throat: Yes Nasal congestion: Yes or Rhinorrhea: Yes Nausea: No or Vomiting: No Diarrhea: No OTC meds/remedies that patient has tried: OTC cold medicine. High risk category assessment Morbid Obesity (BMI>40) Exposures: Sick contacts? No Family or close contacts with confirmed/probable COVID-19 in last 14 days? No OBJECTIVE PHYSICAL EXAM: BP 130/70 Pulse 64 Resp 16 Wt 110.7 kg (244 lb) SpO2 99% BMI 40.60 kg/m General appearance: tired/ill appearing, alert, cooperative, pleasant, in no acute distress Head: Normocephalic Eyes: conjunctiva/corneas normal Ears: R TM - clear with good landmarks, nl light reflex, L TM - clear with good landmarks, nl light reflex Nose: clear rhinorrhea, mucosa erythematous and swollen Oropharynx: moist without lesions Neck: supple and small, benign anterior cervical nodes bilaterally Heart: regular rate and rhythm, without murmur Lungs: clear to auscultation, without rales or wheeze, good air exchange ASSESSMENT/PLAN (R05.1) Acute cough (primary encounter diagnosis) (J06.9) Acute URI (R06.2) Wheezing ASSESSMENT/PLAN: 1. Acute cough - ICD9: 786.2, ICD10: R05.1 (primary diagnosis) - BENZONATATE 100 MG CAPSULE - METHYLPREDNISOLONE 4 MG TABLETS IN A DOSE PACK - ALBUTEROL SULFATE HFA 90 MCG/ACTUATION AEROSOL INHALER - FLUTICASONE PROPIONATE 50 MCG/ACTUATION NASAL SPRAY,SUSPENSION 2. Acute URI - ICD9: 465.9, ICD10: J06.9 - BENZONATATE 100 MG CAPSULE - METHYLPREDNISOLONE 4 MG TABLETS IN A DOSE PACK - ALBUTEROL SULFATE HFA 90 MCG/ACTUATION AEROSOL INHALER - FLUTICASONE PROPIONATE 50 MCG/ACTUATION NASAL SPRAY,SUSPENSION 3. Wheezing - ICD9: 786.07, ICD10: R06.2 Albuterol nebulizer or inhaler as needed She will let us know if not feeling improved. Amber Savage APRN.[employer]UM[employer] TAPE PRESS OPERATOR Medical Decision Making: Problems: Moderate: Acute illness with systemic symptoms Risk: Moderate: Drug management Medical Decision Making Level: 4 - Moderate documented in this encounter [facility] 06-06-2022 Miscellaneous Notes Patient due to test INR today. Will continue to monitor for results. Vikas Perez RPh documented in this encounter [facility] 05-24-2022 Miscellaneous Notes The following approved medication requests have been transmitted electronically. Requested Prescriptions Pending Prescriptions Disp Refills methadone (DOLOPHINE) 10 mg tablet 270 tablet 0 Sig: Take 3 tablets by mouth every 8 hours as needed for pain for up to 30 days. Do not start before May 30, 2022. oxyCODONE-acetaminophen (PERCOCET) 5-325 mg tablet 90 tablet 0 Sig: Take 1 tablet by mouth every 8 hours as needed for pain for up to 30 days. Do not start before May 29, 2022. Cristofer Sparks PA-C Patient phones requesting refills as follows: Requested Prescriptions Pending Prescriptions Disp Refills methadone (DOLOPHINE) 10 mg tablet 270 tablet 0 Sig: Take 3 tablets by mouth every 8 hours as needed for pain for up to 30 days. Do not start before May 30, 2022. oxyCODONE-acetaminophen (PERCOCET) 5-325 mg tablet 90 tablet 0 Sig: Take 1 tablet by mouth every 8 hours as needed for pain for up to 30 days. Do not start before May 29, 2022. Please review and advise. Maureen Huston RN documented in this encounter [facility] 05-23-2022 Miscellaneous Notes [employer] message sent for therapeutic INR. documented in this encounter [facility] 05-10-2022 Miscellaneous Notes [facility] Ambulatory Pharmacy Anticoagulation Clinic Anticoagulation Episode Summary Anticoagulation Care Providers Provider Role Specialty Phone number Anuj Hanson MD Referring Internal Medicine [phone] Jose Beltran DO Responsible Hematology/Oncology [phone] Stephanie Moore is a 62 year old year old female patient being evaluated today for a Telemanagement visit. Patient is currently on the following anticoagulant(s) Warfarin. Labs PT INR (no units) Date Value 05/10/2022 2.0 (Biotel) 05/30/2021 2.3 biotel 05/17/2021 1.8 (biotel) INR (no units) Date Value 03/28/2022 2.4 INR Home CoaguChek (no units) Date Value 04/18/2022 2.2 03/27/2022 2.4 03/09/2022 2.4 Hemoglobin (g/dL) Date Value 03/28/2022 11.9 03/19/2020 11.3 Hematocrit (%) Date Value 03/28/2022 37.9 03/19/2020 38.7 Platelet Count (k/uL) Date Value 03/28/2022 222 03/19/2020 270 Creatinine (mg/dL) Date Value 03/28/2022 0.54 11/20/2021 0.57 06/15/2021 0.64 03/19/2020 0.75 03/15/2020 0.80 10/13/2019 0.73 Bilirubin, Total (mg/dL) Date Value 03/28/2022 0.4 03/19/2020 0.4 ALT (U/L) Date Value 03/28/2022 41 03/19/2020 17 AST (U/L) Date Value 03/28/2022 34 03/19/2020 22 Estimated Creatinine Clearance: 131.2 mL/min (A) (based on SCr of 0.54 mg/dL (L)). ALLERGIES Allergen Reactions Hydrocodone-Acetami* Unknown Opioids - Morphine * vicodin Pentazocine talwin Propoxyphene darvacet Steri Strips And Pa* [place] [Pentazocin* Mental Status Change Indication for Warfarin: residential (current) use of anticoagulants Tia (transient ischemic attack) Factor 5 leiden mutation, heterozygous (hcc) Anti-cardiolipin antibody positive Ischemic stroke of frontal lobe (hcc) Anticoagulation Episode Summary Current INR goal: 2.0-3.0 Assessment: INR result of 2.0 is therapeutic Plan: Current Warfarin Dosing As of 04/25/2022 Full warfarin instructions: 5 mg every day Called and spoke to patient/caregiveras she did not read our [facility] message last result and called the PAC versus Yoan INR Advised patient to continue current weekly dose as noted above Next home INR check scheduled on 05/16/2022 Patient verbalizes understanding of the plan. Patient denies need for refills. Lucy Linares RPh Clinical Pharmacist, Pharmacy Anticoagulation Clinic Pharmacy Anticoagulation Clinic Pager: [phone]. PATIENT CALL Patient called and stated INR result for 05/10 is 2.0 (not currently/yet showing in INR summary below). Patient can be reached at [phone] to discuss. PT INR (no units) Date Value 05/30/2021 2.3 biotel 05/17/2021 1.8 (biotel) 04/03/2021 2.9 INR (no units) Date Value 03/28/2022 2.4 INR Home CoaguChek (no units) Date Value 04/18/2022 2.2 03/27/2022 2.4 03/09/2022 2.4 Daniela Manning CPhT ([employer]) Pharmacy Anticoagulation Clinic Stephanie Moore was called and reminded to test INR today or as soon as possible. LM on her home/cell number listed. Claire Chavez PharmD Patient was due to test INR today will continue to monitor for results. Of note - she did not read our last [employer]_ message. Claire Chavez PharmD Pharmacy Anticoagulation Clinic documented in this encounter [facility] 05-10-2022 Miscellaneous Notes EKG results have been imported under cardiac. documented in this encounter [facility] 05-09-2022 Note HNO ID: [id number] Author: Adama Diallo MD Service: ? Author Type: Physician Type: Progress Notes Filed: 07/01/2022 6:55 AM Note Text: This note was created using [employer]. Subjective Stephanie Moore is a 62 year old female. The patient primarily being seen for bilateral knee, right shoulder pain Patient was last seen on: 03/28/22 At that time, the treatment plan was: see notes Current Meds: Methadone - last dose noon, Percocet - this afternoon, Cyclobenzaprine - couple weeks ago, Compounding Cream - ran out Efficacy: help Side effects: none TENS unit: had one but didn't help How often used: Benefit: Physical Therapy: currently - [facility] Last UDS: 02/14/22 Last injection: none OARRS reviewed INTAKE PAIN ASSESSMENT 05/09/2022 05/09/2022 Are you having pain associated with your visit today? Yes, Provider notified - Pain Scales Verbal (Numeric Rating or Visual Analog Scale) Verbal (Numeric Rating or Visual Analog Scale) Pain Level 6 7 Pain Location Knee-Left Shoulder-Right Description Sharp;Stabbing;Burning Aching;Sharp;Pressure Duration Amount of Time - - Duration Units Years Years Frequency Continuous Continuous Intervention/Comfort measure Medication;Cold Medication;Cold Comments - - Pain Assessment - - HPI Patient is getting adequate relief from the present regimen and denies any side effect from it except for constipation that is relieved by MiraLAX. This has improved the patient?s level of functionality and has been able to perform activities of daily living. The patient exhibits no aberrant behavior. The PDMP report and last UDS are both consistent with prescribed medications and are unremarkable. She decided against having her spinal cord stimulator explanted and would just leave it alone. She had her EKG done at [facility] however they have not sent it to us yet. Review of Systems Constitutional: Negative. Gastrointestinal: Positive for constipation. Musculoskeletal: Positive for joint pain, joint swelling, stiffness, and arthritis Neurological: Positive for paresthesia and difficulty walking Objective BP 135/63 (BP Site: Left Arm, BP Position: Sitting, BP Cuff Size: Large Adult) Pulse (!) 56 Temp 36.5 ?C (97.7 ?F) (Temporal) Resp 20 Ht 165.1 cm (5' 5 ) Wt 102.1 kg (225 lb) SpO2 97% BMI 37.44 kg/m? Physical Exam Vitals and nursing note reviewed. Constitutional: General: She is not in acute distress. Appearance: Normal appearance. She is obese. HENT: Head: Normocephalic and atraumatic. Right Ear: External ear normal. Left Ear: External ear normal. Nose: Nose normal. Eyes: General: No scleral icterus. Extraocular Movements: Extraocular movements intact. Conjunctiva/sclera: Conjunctivae normal. Musculoskeletal: Comments: The patient walks with a limp. There is increased pain on range of motion of the lumbar spine. Lumbosacral paraspinal muscle spasm and tenderness was present. There is increased pain on weightbearing and range of motion of both knees. Skin: General: Skin is warm and dry. Neurological: General: No focal deficit present. Mental Status: She is alert and oriented to person, place, and time. Comments: Allodynia and hyperpathia present on the right leg. Psychiatric: Mood and Affect: Mood normal. Behavior: Behavior normal. Thought Content: Thought content normal. Assessment and Plan ASSESSMENT/PLAN: 1. Chronic pain syndrome - ICD9: 338.4, ICD10: G89.4 (primary diagnosis) 2. Complex regional pain syndrome type 1 of right lower extremity - ICD9: 337.22, ICD10: G90.521 3. Primary osteoarthritis of both knees - ICD9: 715.16, ICD10: M17.0 4. Plantar fasciitis - ICD9: 728.71, ICD10: M72.2 PLAN: The patient will continue with methadone, Percocet, cyclobenzaprine, and a compounded cream. She was encouraged to increase fluid and fiber intake and to take MiraLAX as needed for opioid-induced constipation. She will continue with core strengthening and range of motion exercises. Weight reduction. We will obtain her most recent EKG from [facility]. Follow-up in office in 6 weeks time. 30 minutes spent for chronic pain management distinct from evaluation and management Two or more stable chronic illness and prescription medication management This document was transcribed using a voice recognition software and may contain minor errors. Adama Diallo MD [facility] 05-09-2022 Instructions Adama Diallo MD - 05/09/2022 4:17 PM EDT The patient will continue with methadone, Percocet, cyclobenzaprine, and a compounded cream. She was encouraged to increase fluid and fiber intake and to take MiraLAX as needed for opioid-induced constipation. She will continue with core strengthening and range of motion exercises. Weight reduction. We will obtain her most recent EKG from [facility]. Follow-up in office in 6 weeks time. documented in this encounter [facility] 05-09-2022 History of Present illness Narrative This note was created using [employer]. Subjective Stephanie Moore is a 62 year old female. The patient primarily being seen for bilateral knee, right shoulder pain Patient was last seen on: 03/28/22 At that time, the treatment plan was: see notes Current Meds: Methadone - last dose noon, Percocet - this afternoon, Cyclobenzaprine - couple weeks ago, Compounding Cream - ran out Efficacy: help Side effects: none TENS unit: had one but didn't help How often used: Benefit: Physical Therapy: currently - [facility] Last UDS: 02/14/22 Last injection: none OARRS reviewed INTAKE PAIN ASSESSMENT 05/09/2022 05/09/2022 Are you having pain associated with your visit today? Yes, Provider notified - Pain Scales Verbal (Numeric Rating or Visual Analog Scale) Verbal (Numeric Rating or Visual Analog Scale) Pain Level 6 7 Pain Location Knee-Left Shoulder-Right Description Sharp;Stabbing;Burning Aching;Sharp;Pressure Duration Amount of Time - - Duration Units Years Years Frequency Continuous Continuous Intervention/Comfort measure Medication;Cold Medication;Cold Comments - - Pain Assessment - - HPI Patient is getting adequate relief from the present regimen and denies any side effect from it except for constipation that is relieved by MiraLAX. This has improved the patient s level of functionality and has been able to perform activities of daily living. The patient exhibits no aberrant behavior. The PDMP report and last UDS are both consistent with prescribed medications and are unremarkable. She decided against having her spinal cord stimulator explanted and would just leave it alone. She had her EKG done at [facility] however they have not sent it to us yet. Review of Systems Constitutional: Negative. Gastrointestinal: Positive for constipation. Musculoskeletal: Positive for joint pain, joint swelling, stiffness, and arthritis Neurological: Positive for paresthesia and difficulty walking Objective BP 135/63 (BP Site: Left Arm, BP Position: Sitting, BP Cuff Size: Large Adult) Pulse (!) 56 Temp 36.5 C (97.7 F) (Temporal) Resp 20 Ht 165.1 cm (5' 5 ) Wt 102.1 kg (225 lb) SpO2 97% BMI 37.44 kg/m Physical Exam Vitals and nursing note reviewed. Constitutional: General: She is not in acute distress. Appearance: Normal appearance. She is obese. HENT: Head: Normocephalic and atraumatic. Right Ear: External ear normal. Left Ear: External ear normal. Nose: Nose normal. Eyes: General: No scleral icterus. Extraocular Movements: Extraocular movements intact. Conjunctiva/sclera: Conjunctivae normal. Musculoskeletal: Comments: The patient walks with a limp. There is increased pain on range of motion of the lumbar spine. Lumbosacral paraspinal muscle spasm and tenderness was present. There is increased pain on weightbearing and range of motion of both knees. Skin: General: Skin is warm and dry. Neurological: General: No focal deficit present. Mental Status: She is alert and oriented to person, place, and time. Comments: Allodynia and hyperpathia present on the right leg. Psychiatric: Mood and Affect: Mood normal. Behavior: Behavior normal. Thought Content: Thought content normal. Assessment and Plan ASSESSMENT/PLAN: 1. Chronic pain syndrome - ICD9: 338.4, ICD10: G89.4 (primary diagnosis) The patient will continue with methadone, Percocet, cyclobenzaprine, and a compounded cream. She was encouraged to increase fluid and fiber intake and to take MiraLAX as needed for opioid-induced constipation. She will continue with core strengthening and range of motion exercises. Weight reduction. We will obtain her most recent EKG from [facility]. Follow-up in office in 6 weeks time. 2. Complex regional pain syndrome type 1 of right lower extremity - ICD9: 337.22, ICD10: G90.521 3. Primary osteoarthritis of both knees - ICD9: 715.16, ICD10: M17.0 4. Plantar fasciitis - ICD9: 728.71, ICD10: M72.2 Greater than two stable chronic illness and prescription medication management. This document was transcribed using a voice recognition software and may contain minor errors. Adama Diallo MD documented in this encounter [facility] 04-26-2022 Miscellaneous Notes The following approved medication requests have been transmitted electronically. Requested Prescriptions Pending Prescriptions Disp Refills methadone (DOLOPHINE) 10 mg tablet 270 tablet 0 Sig: Take 3 tablets by mouth every 8 hours as needed for pain for up to 30 days. Do not start before April 30, 2022. oxyCODONE-acetaminophen (PERCOCET) 5-325 mg tablet 90 tablet 0 Sig: Take 1 tablet by mouth every 8 hours as needed for pain for up to 30 days. Do not start before April 28, 2022. Cristofer Sparks PA-C Patient phones requesting refills as follows: Requested Prescriptions Pending Prescriptions Disp Refills methadone (DOLOPHINE) 10 mg tablet 270 tablet 0 Sig: Take 3 tablets by mouth every 8 hours as needed for pain for up to 30 days. Do not start before April 30, 2022. oxyCODONE-acetaminophen (PERCOCET) 5-325 mg tablet 90 tablet 0 Sig: Take 1 tablet by mouth every 8 hours as needed for pain for up to 30 days. Do not start before April 28, 2022. Please review and advise. Maureen Huston RN documented in this encounter [facility] 04-12-2022 Miscellaneous Notes Most recent Rheumatology visit: 11/16/2021 (with Daksha Ybarra) Recent Office Visits - This Specialty 11/16/2021 Cerebral vascular disorder Rheumatology Daksha Krishnamurthy MD 03/25/2019 Vasculopathy Rheumatology Daksha Krishnamurthy MD 09/18/2018 Vasculopathy Rheumatology Daksha Krishnamurthy MD Upcoming Rheumatology Appointments - Next 365 Days Visit Type Date Time Department JASMYNE EST VASCULITIS 05/17/2022 9:30 AM [facility] A[facility] CBC: CBC Latest Ref Rng & Units 11/20/2021 03/28/2022 WBC 3.70 - 11.00 k/uL 6.22 5.94 HEMOGLOBIN 11.5 - 15.5 g/dL 11.4(L) 11.9 HEMOGLOBIN, KINZA 12.0 - 16.0 g/dL - - HEMATOCRIT 36.0 - 46.0 % 35.3(L) 37.9 PLATELETS 150 - 400 k/uL 229 222 ABS NEUT (ANC) 1.45 - 7.50 k/uL 3.23 3.08 ABS NEUT, KINZA 2.0 - 8.1 k/uL - - ABS LYMP, KINZA 1.0 - 5.5 k/uL - - ABS LYMPH 1.00 - 4.00 k/uL 2.07 2.04 Vitamin D: Vitamin D Latest Ref Rng & Units 03/25/2019 11/20/2021 VITAMIN D 25 HYDROXY 31.0 - 80.0 ng/mL 53.9 54.6 LFT: CMP Latest Ref Rng & Units 11/20/2021 03/28/2022 SODIUM 136 - 144 mmol/L 142 142 SODIUM, KINZA 136 - 145 mmol/L - - SODIUM, KINZA 136 - 145 mmol/L - - POTASSIUM 3.7 - 5.1 mmol/L 3.5(L) 3.7 POTASSIUM, KINZA 3.5 - 5.1 mmol/L - - CHLORIDE 97 - 105 mmol/L 107(H) 107(H) CHLORIDE, KINZA 98 - 107 mmol/L - - CO2 22 - 30 mmol/L 26 27 CO2, KINZA 21.0 - 32.0 mmol/L - - GLUCOSE 74 - 99 mg/dL 109(H) 99 GLUCOSE, KINZA 70 - 99 mg/dL - - BUN 7 - 21 mg/dL 8 10 BUN, KINZA 7 - 18 mg/dL - - CREATININE 0.58 - 0.96 mg/dL 0.57(L) 0.54(L) CREATININE, KINZA 0.6 - 1.0 mg/dL - - CALCIUM, KINZA 8.5 - 10.1 mg/dL - - CALCIUM, TOTAL 8.5 - 10.2 mg/dL 8.5 8.7 AST 13 - 35 U/L 34 34 AST, KINZA 15 - 37 U/L - - ALT 7 - 38 U/L 39(H) 41(H) ALT, KINZA 30 - 65 U/L - - ALKALINE PHOSPHATASE 34 - 123 U/L 75 78 Creatinine: Creatinine Latest Ref Rng & Units 11/20/2021 03/28/2022 CREAT 0.58 - 0.96 mg/dL 0.57(L) 0.54(L) ESR/CRP: ESR, WSR Latest Ref Rng & Units 03/25/2019 11/20/2021 WSR 0 - 20 mm/hr 10 17 CRP Latest Ref Rng & Units 03/25/2019 11/20/2021 CRP <0.9 mg/dL 0.5 0.4 Uric Acid: None on file in the last 6 months Open Standing (Multiple Instance) Lab Orders Remain Interval Expires Ordered Last Rel. CBC + DIFF [SQCBCDIF] 5 Every 2 months 07/04/22 07/04/21 03/28/22 Auth. provider: Daksha Krishnamurthy MD Assoc. diagnoses: Cerebral vascular disorder COMP METABOLIC PANEL [SQCMP] 5 Every 2 months 07/04/22 07/04/21 03/28/22 Auth. provider: Daksha Krishnamurthy MD Assoc. diagnoses: Cerebral vascular disorder PROTHROMBIN TIME/PT [SQPT] 98/99 02/27/23 02/27/22 03/28/22 Auth. 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 Author Type: Registered Nurse Type: Progress Notes Filed: 04/02/2022 1:26 PM Note Text: [facility] requires a faxed order Dr Diallo notified Maureen Huston RN April 02, 2022 1:25 PM [facility] 04-02-2022 History of Present illness Narrative [facility] requires a faxed order Dr Diallo notified Maureen Huston RN April 02, 2022 1:25 PM documented in this encounter [facility] 03-29-2022 Miscellaneous Notes The following approved medication requests have been transmitted electronically. Requested Prescriptions Pending Prescriptions Disp Refills methadone (DOLOPHINE) 10 mg tablet 270 tablet 0 Sig: Take 3 tablets by mouth every 8 hours as needed for pain for up to 30 days. Do not start before March 31, 2022. oxyCODONE-acetaminophen (PERCOCET) 5-325 mg tablet 90 tablet 0 Sig: Take 1 tablet by mouth every 8 hours as needed for pain for up to 30 days. Cristofer Sparks PA-C Patient phones requesting refills as follows: Requested Prescriptions Pending Prescriptions Disp Refills methadone (DOLOPHINE) 10 mg tablet 270 tablet 0 Sig: Take 3 tablets by mouth every 8 hours as needed for pain for up to 30 days. Do not start before March 31, 2022. oxyCODONE-acetaminophen (PERCOCET) 5-325 mg tablet 90 tablet 0 Sig: Take 1 tablet by mouth every 8 hours as needed for pain for up to 30 days. Please review and advise. Maureen Huston RN documented in this encounter [facility] 03-28-2022 Note HNO ID: [id number] Author: Adama Diallo MD Service: ? Author Type: Physician Type: Progress Notes Filed: 03/29/2022 7:54 AM Note Text: This note was created using [employer]. Subjective Stephanie Moore is a 62 year old female. The patient primarily being seen for bilateral knee, right shoulder pain Patient was last seen on: 02/14/22 At that time, the treatment plan was: see notes Current Meds: Methadone - last dose noon, Percocet - this afternoon, Compounding Cream - last applied 1 week ago , Cyclobenzaprine - 2 nights ago Efficacy: help Side effects: none TENS unit: has one but didn't help How often used: Benefit: Physical Therapy: 2021 - [facility] in [place] Last UDS: 02/14/22 Last injection: none OARRS reviewed INTAKE PAIN ASSESSMENT 03/28/2022 03/28/2022 Are you having pain associated with your visit today? Yes, Provider notified - Pain Scales Verbal (Numeric Rating or Visual Analog Scale) Verbal (Numeric Rating or Visual Analog Scale) Pain Level 6 8 Pain Location Other: See Comment Shoulder-Right Description Sharp;Stabbing Aching;Dull;Sharp;Stabbing Duration Amount of Time - - Duration Units Years Years Frequency Continuous Continuous Intervention/Comfort measure Medication;Heat Medication Comments - - Pain Assessment - - HPI Patient is getting adequate relief from the present regimen and denies any side effect from it except for constipation that is relieved by MiraLAX. This has improved the patient?s level of functionality and has been able to perform activities of daily living. The patient exhibits no aberrant behavior. The PDMP report and last UDS are both consistent with prescribed medications and are unremarkable. Patient was seen by Dr. Ambrose dill who will be taking her spinal cord stimulator leads out because she needs to have an MRI of her shoulder. Review of Systems Constitutional: Negative. Gastrointestinal: Positive for constipation. Musculoskeletal: Positive for joint pain, joint swelling, stiffness, and arthritis Neurological: Positive for paresthesia and difficulty walking Objective BP 160/73 (BP Site: Left Arm, BP Position: Sitting, BP Cuff Size: Large Adult) Pulse (!) 55 Temp 36.6 ?C (97.8 ?F) (Temporal) Resp 20 Ht 165.1 cm (5' 5 ) Wt 102.5 kg (226 lb) SpO2 98% BMI 37.61 kg/m? Physical Exam Vitals and nursing note reviewed. Constitutional: General: She is not in acute distress. Appearance: Normal appearance. She is obese. HENT: Head: Normocephalic and atraumatic. Right Ear: External ear normal. Left Ear: External ear normal. Nose: Nose normal. Eyes: General: No scleral icterus. Extraocular Movements: Extraocular movements intact. Conjunctiva/sclera: Conjunctivae normal. Musculoskeletal: Comments: The patient walks with a limp. There is increased pain on range of motion of the lumbar spine. Lumbosacral paraspinal muscle spasm and tenderness was present. There is increased pain on weightbearing and range of motion of both knees. Skin: General: Skin is warm and dry. Neurological: General: No focal deficit present. Mental Status: She is alert and oriented to person, place, and time. Comments: Allodynia and hyperpathia present on the right leg. Psychiatric: Mood and Affect: Mood normal. Behavior: Behavior normal. Thought Content: Thought content normal. Assessment and Plan ASSESSMENT/PLAN: 1. Complex regional pain syndrome type 1 of right lower extremity - ICD9: 337.22, ICD10: G90.521 (primary diagnosis) The patient will continue with methadone, Percocet, cyclobenzaprine, and a compounded cream. She will increase fluid and fiber intake and take MiraLAX as needed for opioid-induced constipation. She will continue with core strengthening and range of motion exercises. Patient will work on losing weight. Repeat EKG. She will have Dr. Boggs take out her spinal cord stimulator leads. Follow-up in office in 6 weeks time. 2. Primary osteoarthritis of both knees - ICD9: 715.16, ICD10: M17.0 3. Plantar fasciitis - ICD9: 728.71, ICD10: M72.2 Greater than two stable chronic illness and prescription medication management. This document was transcribed using a voice recognition software and may contain minor errors. Adama Diallo MD [facility] 03-28-2022 Instructions Adama Diallo MD - 03/28/2022 4:23 PM EST The patient will continue with methadone, Percocet, cyclobenzaprine, and a compounded cream. She will increase fluid and fiber intake and take MiraLAX as needed for opioid-induced constipation. She will continue with core strengthening and range of motion exercises. Patient will work on losing weight. Repeat EKG. She will have Dr. Boggs take out her spinal cord stimulator leads. Follow-up in office in 6 weeks time. documented in this encounter [facility] 03-28-2022 History of Present illness Narrative This note was created using [employer]. Subjective Stephanie Moore is a 62 year old female. The patient primarily being seen for bilateral knee, right shoulder pain Patient was last seen on: 02/14/22 At that time, the treatment plan was: see notes Current Meds: Methadone - last dose noon, Percocet - this afternoon, Compounding Cream - last applied 1 week ago , Cyclobenzaprine - 2 nights ago Efficacy: help Side effects: none TENS unit: has one but didn't help How often used: Benefit: Physical Therapy: 2021 - [facility] in [place] Last UDS: 02/14/22 Last injection: none OARRS reviewed INTAKE PAIN ASSESSMENT 03/28/2022 03/28/2022 Are you having pain associated with your visit today? Yes, Provider notified - Pain Scales Verbal (Numeric Rating or Visual Analog Scale) Verbal (Numeric Rating or Visual Analog Scale) Pain Level 6 8 Pain Location Other: See Comment Shoulder-Right Description Sharp;Stabbing Aching;Dull;Sharp;Stabbing Duration Amount of Time - - Duration Units Years Years Frequency Continuous Continuous Intervention/Comfort measure Medication;Heat Medication Comments - - Pain Assessment - - HPI Patient is getting adequate relief from the present regimen and denies any side effect from it except for constipation that is relieved by MiraLAX. This has improved the patient s level of functionality and has been able to perform activities of daily living. The patient exhibits no aberrant behavior. The PDMP report and last UDS are both consistent with prescribed medications and are unremarkable. Patient was seen by Dr. Boggs [facility] who will be taking her spinal cord stimulator leads out because she needs to have an MRI of her shoulder. Review of Systems Constitutional: Negative. Gastrointestinal: Positive for constipation. Musculoskeletal: Positive for joint pain, joint swelling, stiffness, and arthritis Neurological: Positive for paresthesia and difficulty walking Objective BP 160/73 (BP Site: Left Arm, BP Position: Sitting, BP Cuff Size: Large Adult) Pulse (!) 55 Temp 36.6 C (97.8 F) (Temporal) Resp 20 Ht 165.1 cm (5' 5 ) Wt 102.5 kg (226 lb) SpO2 98% BMI 37.61 kg/m Physical Exam Vitals and nursing note reviewed. Constitutional: General: She is not in acute distress. Appearance: Normal appearance. She is obese. HENT: Head: Normocephalic and atraumatic. Right Ear: External ear normal. Left Ear: External ear normal. Nose: Nose normal. Eyes: General: No scleral icterus. Extraocular Movements: Extraocular movements intact. Conjunctiva/sclera: Conjunctivae normal. Musculoskeletal: Comments: The patient walks with a limp. There is increased pain on range of motion of the lumbar spine. Lumbosacral paraspinal muscle spasm and tenderness was present. There is increased pain on weightbearing and range of motion of both knees. Skin: General: Skin is warm and dry. Neurological: General: No focal deficit present. Mental Status: She is alert and oriented to person, place, and time. Comments: Allodynia and hyperpathia present on the right leg. Psychiatric: Mood and Affect: Mood normal. Behavior: Behavior normal. Thought Content: Thought content normal. Assessment and Plan ASSESSMENT/PLAN: 1. Complex regional pain syndrome type 1 of right lower extremity - ICD9: 337.22, ICD10: G90.521 (primary diagnosis) The patient will continue with methadone, Percocet, cyclobenzaprine, and a compounded cream. She will increase fluid and fiber intake and take MiraLAX as needed for opioid-induced constipation. She will continue with core strengthening and range of motion exercises. Patient will work on losing weight. Repeat EKG. She will have Dr. Boggs take out her spinal cord stimulator leads. Follow-up in office in 6 weeks time. 2. Primary osteoarthritis of both knees - ICD9: 715.16, ICD10: M17.0 3. Plantar fasciitis - ICD9: 728.71, ICD10: M72.2 Greater than two stable chronic illness and prescription medication management. This document was transcribed using a voice recognition software and may contain minor errors. Adama Diallo MD documented in this encounter [facility] 03-28-2022 Note HNO ID: [id number] Author: RT Jose(R) Service: Radiology Author Type: Technologist Type: Progress Notes Filed: 03/28/2022 11:33 AM Note Text: Radiology Service Progress Note PATIENT NAME: Stephanie Moore DATE OF SERVICE: March 28, 2022 TIME: 11:19 AM PATIENT IDENTITY VERIFICATION COMPLETED USING TWO (2) IDENTIFIERS: Name and Date of confirmed by patient verbally. FALL SCREENING: Has the patient had 2 falls in the last year or 1 fall with injury or currently using an Ambulatory Assistive Device (Walker, Cane, Wheelchair, Crutches, etc.)? No PATIENT GENDER DATA: Female. status: : No status: NO. PATIENT RELEVANT IMPLANT DATA REVIEWED: Yes RADIOLOGY DEPARTMENT: General X-ray: Exam(s) Completed: Spine X-Ray(s): Thoracic and Lumbar AP / LAT / L5-S1 PERIPHERAL IV DATA: Not applicable SIGNED BY: RT Jose(R) March 28, 2022 11:19 AM [facility] 03-28-2022 Miscellaneous Notes MyChart message sent for therapeutic INR. documented in this encounter [facility] 03-10-2022 Miscellaneous Notes left message to notify patient to contact the doctor that placed the spinal cord stimulator. Adele Dawn LPN Can she remember who put hat spinal cord stimulator in? She ideally needs to see the person who put it in and get him to remove it. Regards, Anuj Hanson MD Patient calls requesting consult to have spinal cord stimulator removed. Patient inquired about having Dr. Rodriguez place referral. Advised patient that Dr. Rodriguez is not a neurosurgeon and she is not an established patient of Dr. Rodriguez. Informed patient this nurse would forward consult request to PCP's office. documented in this encounter [facility] 03-09-2022 Miscellaneous Notes Stephanie Moore was sent [facility] message and reminded to test INR today or as soon as possible. Patient is currently on steroids and doxycyline. Sherie Umana RPh documented in this encounter [facility] 03-08-2022 Miscellaneous Notes Pt contacted and given provider's information below. Eunice Cruz RN Rx doxycyline sent to pharmacy. Does not look like albuterol inhaler is covered by her insurance but albuterol nebulizer treatments would be. Nebulizer and solution were ordered. Pt calling and states she saw Amber Savage CNP on 03/05/22 for respiratory symptoms. She was ordered prednisone dose pack and tessalon perles. Pt states she was instructed to call provider if not improving. States she is on day 3 of prednisone taper. Pt states she is still frequently coughing, night and day. Reports the tessalon perles have helped quiet her cough down for a short time at night and then she is back up coughing. Reports continued productive cough with green mucus. Denies fever, chills, SOB, weakness, headache. Reports sore throat has improved. Please advise pt. Thank you. documented in this encounter [facility] 03-06-2022 Miscellaneous Notes [facility] Ambulatory Pharmacy Anticoagulation Clinic Anticoagulation Episode Summary Anticoagulation Care Providers Provider Role Specialty Phone number Anuj Hanson MD Referring Internal Medicine [phone] Jose Beltran DO Responsible Hematology/Oncology [phone] Stephanie Moore is a 62 year old year old female patient being evaluated today for a Telemanagement visit. Patient is currently on the following anticoagulant(s) Warfarin. Labs PT INR (no units) Date Value 05/30/2021 2.3 biotel 05/17/2021 1.8 (biotel) 04/03/2021 2.9 INR Home CoaguChek (no units) Date Value 03/06/2022 2.0 02/20/2022 2.5 02/06/2022 2.3 Hemoglobin (g/dL) Date Value 11/20/2021 11.4 03/19/2020 11.3 Hematocrit (%) Date Value 11/20/2021 35.3 03/19/2020 38.7 Platelet Count (k/uL) Date Value 11/20/2021 229 03/19/2020 270 Creatinine (mg/dL) Date Value 11/20/2021 0.57 06/15/2021 0.64 03/19/2020 0.75 03/15/2020 0.80 10/13/2019 0.73 Bilirubin, Total (mg/dL) Date Value 11/20/2021 0.4 03/19/2020 0.4 ALT (U/L) Date Value 11/20/2021 39 03/19/2020 17 AST (U/L) Date Value 11/20/2021 34 03/19/2020 22 Estimated Creatinine Clearance: 129.7 mL/min (A) (based on SCr of 0.57 mg/dL (L)). ALLERGIES Allergen Reactions Hydrocodone-Acetami* Unknown Opioids - Morphine * vicodin Pentazocine talwin Propoxyphene darvacet Steri Strips And Pa* Tal[place]en [Pentazocin* Mental Status Change Indication for Warfarin: Anticoagulation Episode Summary Current INR goal: 2.0-3.0 Assessment: INR result of 2.0 is therapeutic Plan: Current Warfarin Dosing As of 03/06/2022 Full warfarin instructions: 5 mg every day; Starting 03/06/2022 Called and spoke to patient/caregiver Advised patient to continue current weekly dose as noted above Next home INR check scheduled on 03/09/2022. Patient started medrol dosepak on 03/05. She is aware due to APS she needs to start going to lab. She will check at home on 03/09 due to not feeling well. Patient verbalizes understanding of the plan. Adele Menon RPh Clinical Pharmacist, Pharmacy Anticoagulation Clinic Pharmacy Anticoagulation Clinic Pager: [phone]. documented in this encounter [facility] 03-05-2022 History of Present illness Narrative Evaluation for URI Infection PCP: Anuj Hanson MD CHRISTOPHER Moore is a 62 year old female who presents with 4 days of symptoms that are stable. Covid test at home was negative yesterday. 4 days of illness Symptoms include: Fever (?100.4F): No or Chills: No Cough: Yes, productive Shortness of breath: No or Difficulty breathing: No Fatigue: No Muscle aches: No Headache: No New loss of smell or taste: No Sore throat: Yes Nasal congestion: Yes or Rhinorrhea: Yes Nausea: No or Vomiting: No Diarrhea: No OTC meds/remedies that patient has tried: OTC cough syrup and throat lozenges. High risk category assessment Hypertension Exposures: Sick contacts? No Family or close contacts with confirmed/probable COVID-19 in last 14 days? No She reports that she quit smoking about 24 years ago. Her smoking use included cigarettes. She has a 7.00 pack-year smoking history. She has never used smokeless tobacco. OBJECTIVE BP 122/76 Pulse 61 Wt 110.2 kg (243 lb) SpO2 97% BMI 40.44 kg/m PHYSICAL EXAM: BP 122/76 Pulse 61 Wt 110.2 kg (243 lb) SpO2 97% BMI 40.44 kg/m General appearance: tired/ill appearing, alert, cooperative, pleasant, in no acute distress Head: Normocephalic Eyes: conjunctiva/corneas normal Ears: R TM - clear with good landmarks, nl light reflex, L TM - clear with good landmarks, nl light reflex Nose: clear rhinorrhea, mucosa erythematous and swollen Oropharynx: moist without lesions, mild erythema to GPA Neck: supple and small, benign anterior cervical nodes bilaterally Heart: regular rate and rhythm, without murmur Lungs: clear to auscultation, without rales or wheeze, good air exchange ASSESSMENT/PLAN (R05.1) Acute cough (primary encounter diagnosis) (J06.9) Acute URI ASSESSMENT/PLAN: 1. Acute cough - ICD9: 786.2, ICD10: R05.1 (primary diagnosis) 2. Acute URI - ICD9: 465.9, ICD10: J06.9 Defers covid19 test in office today - Discussed viral etiology and rationale for treatment. - Symptomatic treatment with prn analgesia - Supportive care with fluids and rest - METHYLPREDNISOLONE 4 MG TABLETS IN A DOSE PACK - BENZONATATE 100 MG CAPSULE She will let us know if not feeling improved in the next 1-2 days. Amber Savage APRN.GUMMED TAPE PRESS OPERATOR Medical Decision Making: Problems: Low: Acute, uncomplicated illness or injury Risk: Moderate: Drug management Medical Decision Making Level: 3 - Low documented in this encounter [facility] 02-20-2022 Miscellaneous Notes [facility] message sent with INR result, dosing and information on when to test next. Freya Vann PharmD documented in this encounter [facility] 02-15-2022 Miscellaneous Notes The following approved medication requests have been transmitted electronically. Requested Prescriptions Pending Prescriptions Disp Refills oxyCODONE-acetaminophen (PERCOCET) 5-325 mg tablet 90 tablet 0 Sig: Take 1 tablet by mouth every 8 hours as needed for pain for up to 30 days. Do not start before February 23, 2022. methadone (DOLOPHINE) 10 mg tablet 270 tablet 0 Sig: Take 3 tablets by mouth every 8 hours as needed for pain for up to 30 days. Do not start before March 01, 2022. Cristofer Sparks PA-C Patient phones requesting refills as follows: Requested Prescriptions Pending Prescriptions Disp Refills oxyCODONE-acetaminophen (PERCOCET) 5-325 mg tablet 90 tablet 0 Sig: Take 1 tablet by mouth every 8 hours as needed for pain for up to 30 days. Do not start before February 23, 2022. methadone (DOLOPHINE) 10 mg tablet 270 tablet 0 Sig: Take 3 tablets by mouth every 8 hours as needed for pain for up to 30 days. Do not start before March 01, 2022. Please review and advise. Maureen Huston RN documented in this encounter [facility] 02-14-2022 Instructions Adama Diallo MD - 02/14/2022 4:05 PM EST Repeat urine drug screen this visit. The patient will continue with methadone, Percocet, and a compounded cream. She was encouraged to increase fluid and fiber intake and to take MiraLAX as needed for opioid-induced constipation. Continue with core strengthening and range of motion exercises. Patient was encouraged to lose weight. Repeat EKG in February 2022. Follow-up in office in 6 weeks time. documented in this encounter [facility] 02-14-2022 History of Present illness Narrative This note was created using [employer]. Subjective Stephanie Moore is a 61 year old female. The patient primarily being seen for bilateral knee, right shoulder pain Patient was last seen on: 01/03/22 At that time, the treatment plan was: see notes Current Meds: Methadone - last dose this am, Percocet - this afternoon, Compounding Cream - needs refills Efficacy: help Side effects: none TENS unit: has one but didn't help How often used: Benefit: Physical Therapy: recently at [facility] in [place] Last UDS: 02/14/22 Last injection: none OARRS reviewed She is scheduled tomorrow for arthrogram of right shoulder INTAKE PAIN ASSESSMENT 02/14/2022 02/14/2022 Are you having pain associated with your visit today? Yes, Provider notified - Pain Scales Verbal (Numeric Rating or Visual Analog Scale) Verbal (Numeric Rating or Visual Analog Scale) Pain Level 6 6 Pain Location Other: See Comment Shoulder-Right Description Aching;Sharp Aching;Dull;Sharp;Stabbing Duration Amount of Time - - Duration Units Years Years Frequency Continuous Intermittent Intervention/Comfort measure Medication;Relaxation Medication;Cold;Heat Comments elevating legs helps pain - Pain Assessment - - HPI Patient is getting adequate relief from the present regimen and denies any side effect from it except for constipation that is relieved by MiraLAX. This has improved the patient s level of functionality and has been able to perform activities of daily living. The patient exhibits no aberrant behavior. The PDMP report and last UDS are both consistent with prescribed medications and are unremarkable. Review of Systems Constitutional: Negative. Gastrointestinal: Positive for constipation. Musculoskeletal: Positive for joint pain, joint swelling, stiffness, and arthritis Neurological: Positive for paresthesia and difficulty walking Objective BP 139/64 (BP Site: Left Arm, BP Position: Sitting, BP Cuff Size: Large Adult) Pulse 61 Temp 36.4 C (97.6 F) (Temporal) Resp 20 Ht 165.1 cm (5' 5 ) Wt 108.9 kg (240 lb) SpO2 99% BMI 39.94 kg/m Physical Exam Vitals and nursing note reviewed. Constitutional: General: She is not in acute distress. Appearance: Normal appearance. She is obese. HENT: Head: Normocephalic and atraumatic. Right Ear: External ear normal. Left Ear: External ear normal. Nose: Nose normal. Eyes: General: No scleral icterus. Extraocular Movements: Extraocular movements intact. Conjunctiva/sclera: Conjunctivae normal. Musculoskeletal: Comments: The patient walks with a limp. There is increased pain on range of motion of the lumbar spine. Lumbosacral paraspinal muscle spasm and tenderness was present. There is increased pain on weightbearing and range of motion of both knees. Skin: General: Skin is warm and dry. Neurological: General: No focal deficit present. Mental Status: She is alert and oriented to person, place, and time. Comments: Allodynia and hyperpathia present on the right leg. Psychiatric: Mood and Affect: Mood normal. Behavior: Behavior normal. Thought Content: Thought content normal. Assessment and Plan ASSESSMENT/PLAN: 1. Complex regional pain syndrome type 1 of right lower extremity - ICD9: 337.22, ICD10: G90.521 (primary diagnosis) Repeat urine drug screen this visit. The patient will continue with methadone, Percocet, and a compounded cream. She was encouraged to increase fluid and fiber intake and to take MiraLAX as needed for opioid-induced constipation. Continue with core strengthening and range of motion exercises. Patient was encouraged to lose weight. Repeat EKG in February 2022. Follow-up in office in 6 weeks time. 2. Primary osteoarthritis of both knees - ICD9: 715.16, ICD10: M17.0 3. Plantar fasciitis - ICD9: 728.71, ICD10: M72.2 4. residential (current) use of opiate analgesic - ICD9: V58.69, ICD10: Z79.891 - DRUG SCR TOXASURE Greater than two stable chronic illness and prescription medication management. This document was transcribed using a voice recognition software and may contain minor errors. Adama Diallo MD documented in this encounter [facility] 02-06-2022 Miscellaneous Notes [facility] Ambulatory Pharmacy Anticoagulation Clinic Anticoagulation Episode Summary Anticoagulation Care Providers Provider Role Specialty Phone number Anuj Hanson MD Referring Internal Medicine [phone] Jose Beltran DO Responsible Hematology/Oncology [phone] Stephanie Moore is a 61 year old year old female patient being evaluated today for a Telemanagement visit. Patient is currently on the following anticoagulant(s) Warfarin. Labs PT INR (no units) Date Value 05/30/2021 2.3 biotel 05/17/2021 1.8 (biotel) 04/03/2021 2.9 INR Home CoaguChek (no units) Date Value 02/06/2022 2.3 01/23/2022 1.8 01/08/2022 2.0 Hemoglobin (g/dL) Date Value 11/20/2021 11.4 03/19/2020 11.3 Hematocrit (%) Date Value 11/20/2021 35.3 03/19/2020 38.7 Platelet Count (k/uL) Date Value 11/20/2021 229 03/19/2020 270 Creatinine (mg/dL) Date Value 11/20/2021 0.57 06/15/2021 0.64 03/19/2020 0.75 03/15/2020 0.80 10/13/2019 0.73 Bilirubin, Total (mg/dL) Date Value 11/20/2021 0.4 03/19/2020 0.4 ALT (U/L) Date Value 11/20/2021 39 03/19/2020 17 AST (U/L) Date Value 11/20/2021 34 03/19/2020 22 Estimated Creatinine Clearance: 132.2 mL/min (A) (based on SCr of 0.57 mg/dL (L)). ALLERGIES Allergen Reactions Hydrocodone-Acetami* Unknown Opioids - Morphine * vicodin Pentazocine talwin Propoxyphene darvacet Steri Strips And Pa* [place] [Pentazocin* Mental Status Change Indication for Warfarin: Anticoagulation Episode Summary Current INR goal: 2.0-3.0 Assessment: INR result of 2.3 is therapeutic Plan: Current Warfarin Dosing As of 02/06/2022 Full warfarin instructions: 5 mg every day; Starting 02/06/2022 Left voice message Advised patient to continue current weekly dose as noted above Next home INR check scheduled on 02/20/2022 Patient verbalizes understanding of the plan. Adele Menon RPh Clinical Pharmacist, Pharmacy Anticoagulation Clinic Pharmacy Anticoagulation Clinic Pager: [phone]. documented in this encounter [facility] 01-30-2022 Miscellaneous Notes The following approved medication requests have been transmitted electronically. Requested Prescriptions Pending Prescriptions Disp Refills methadone (DOLOPHINE) 10 mg tablet 270 tablet 0 Sig: Take 3 tablets by mouth every 8 hours as needed for pain for up to 30 days. Do not start before January 31, 2022. Cristofer Sparks PA-C Patient phones requesting refills as follows: Requested Prescriptions Pending Prescriptions Disp Refills methadone (DOLOPHINE) 10 mg tablet 270 tablet 0 Sig: Take 3 tablets by mouth every 8 hours as needed for pain for up to 30 days. Do not start before January 31, 2022. Marcia Chi RN documented in this encounter [facility] 01-29-2022 Miscellaneous Notes Patient has been identified by name and date of : Yes Patient phones for refill(s): Requested Prescriptions Pending Prescriptions Disp Refills warfarin (COUMADIN) 5 mg tablet [Pharmacy Med Name: WARFARIN SODIUM 5 MG TABLET] 90 tablet 1 Sig: TAKE 1 TABLET BY MOUTH EVERY DAY Date of last office visit in primary care: 01/08/2022 Last 2 Encounter Wt Readings: Date: Wt: 01/08/2022 111.6 kg (246 lb) 01/03/2022 102.1 kg (225 lb) Previous labs/tests for medication: Not applicable Please advise. Thank you. Adele Dawn LPN documented in this encounter [facility] 01-23-2022 Miscellaneous Notes [facility] Ambulatory Pharmacy Anticoagulation Clinic Anticoagulation Episode Summary Anticoagulation Care Providers Provider Role Specialty Phone number Anuj Hanson MD Referring Internal Medicine [phone] Jose Beltran DO Responsible Hematology/Oncology [phone] Stephanie Moore is a 61 year old year old female patient being evaluated today for a Telemanagement visit. Patient is currently on the following anticoagulant(s) Warfarin. Labs PT INR (no units) Date Value 05/30/2021 2.3 biotel 05/17/2021 1.8 (biotel) 04/03/2021 2.9 INR Home CoaguChek (no units) Date Value 01/23/2022 1.8 01/08/2022 2.0 12/25/2021 2.4 Hemoglobin (g/dL) Date Value 11/20/2021 11.4 03/19/2020 11.3 Hematocrit (%) Date Value 11/20/2021 35.3 03/19/2020 38.7 Platelet Count (k/uL) Date Value 11/20/2021 229 03/19/2020 270 Creatinine (mg/dL) Date Value 11/20/2021 0.57 06/15/2021 0.64 03/19/2020 0.75 03/15/2020 0.80 10/13/2019 0.73 Bilirubin, Total (mg/dL) Date Value 11/20/2021 0.4 03/19/2020 0.4 ALT (U/L) Date Value 11/20/2021 39 03/19/2020 17 AST (U/L) Date Value 11/20/2021 34 03/19/2020 22 Estimated Creatinine Clearance: 132.2 mL/min (A) (based on SCr of 0.57 mg/dL (L)). ALLERGIES Allergen Reactions Hydrocodone-Acetami* Unknown Opioids - Morphine * vicodin Pentazocine talwin Propoxyphene darvacet Steri Strips And Pa* [place] [Pentazocin* Mental Status Change Indication for Warfarin: Anticoagulation Episode Summary Current INR goal: 2.0-3.0 Assessment: INR result of 1.8 is SUBtherapeutic due to: unknown cause - did not speak to patient Plan: Current Warfarin Dosing As of 01/23/2022 Full warfarin instructions: 01/23: 7.5 mg; Otherwise 5 mg every day; Starting 01/23/2022 Left voice message Advised patient to increase dose for 1 day only then resume weekly regimen as noted above Next home INR check scheduled on 02/06/2022 Adele Menon RPh Clinical Pharmacist, [facility] Pager: [phone]. documented in this encounter [facility] 01-03-2022 Instructions Adama Diallo MD - 01/03/2022 4:27 PM EST Patient will continue with methadone, Percocet, and a compounded cream. She was warned about getting opiate prescriptions from other providers without our knowledge. Continue with physical therapy. Weight reduction. Repeat EKG in February 2022. Follow-up in office in 6 weeks time. documented in this encounter [facility] 01-03-2022 History of Present illness Narrative This note was created using Asthmatrackerriter. Subjective Stephanie Moore is a 61 year old female. The patient primarily being seen for bilateral knee, right shoulder pain Patient was last seen on: 11/15/21 At that time, the treatment plan was: see notes Current Meds: Methadone - last dose noon, Percocet - this am, Compounding Cream - hasn't used for a while Efficacy: help Side effects: none TENS unit: had one but didn't help How often used: Benefit: Physical Therapy: currently at [facility] in [place] Last UDS: 08/02/21 Last injection: none OARRS reviewed INTAKE PAIN ASSESSMENT 01/03/2022 01/03/2022 Are you having pain associated with your visit today? Yes, Provider notified - Pain Scales Verbal (Numeric Rating or Visual Analog Scale) Verbal (Numeric Rating or Visual Analog Scale) Pain Level 5 6 Pain Location Knee-Left Shoulder-Right Description Sharp;Aching;Dull;Stabbing;Burning Aching;Dull;Sharp;Stabbing Duration Amount of Time - - Duration Units Years Years Frequency Continuous Continuous Intervention/Comfort measure Cold;Medication Medication;Cold;Heat Comments - - Pain Assessment - - HPI Patient is getting adequate relief from the present regimen and denies any side effect from it. This has improved the patient s level of functionality and has been able to perform activities of daily living. The patient exhibits no aberrant behavior. Last urine drug screen was on unremarkable. Prescription drug monitoring report showed that the patient got 12 pills of Percocet on December 04 from the ER. Review of Systems Constitutional: Negative. Musculoskeletal: Positive for joint pain, joint swelling, stiffness, and arthritis Neurological: Positive for paresthesia and difficulty walking Objective BP 133/73 (BP Site: Left Arm, BP Position: Sitting, BP Cuff Size: Large Adult) Pulse (!) 50 Temp 36 C (96.8 F) (Temporal) Resp 20 Ht 165.1 cm (5' 5 ) Wt 102.1 kg (225 lb) SpO2 98% BMI 37.44 kg/m Physical Exam Vitals and nursing note reviewed. Constitutional: General: She is not in acute distress. Appearance: Normal appearance. She is obese. HENT: Head: Normocephalic and atraumatic. Right Ear: External ear normal. Left Ear: External ear normal. Nose: Nose normal. Eyes: General: No scleral icterus. Extraocular Movements: Extraocular movements intact. Conjunctiva/sclera: Conjunctivae normal. Musculoskeletal: Comments: The patient walks with a limp. There is increased pain on range of motion of the lumbar spine. Lumbosacral paraspinal muscle spasm and tenderness was present. There is increased pain on weightbearing and range of motion of both knees. Skin: General: Skin is warm and dry. Neurological: General: No focal deficit present. Mental Status: She is alert and oriented to person, place, and time. Comments: Allodynia and hyperpathia present on the right leg. Psychiatric: Mood and Affect: Mood normal. Behavior: Behavior normal. Thought Content: Thought content normal. Assessment and Plan ASSESSMENT/PLAN: 1. Complex regional pain syndrome type 1 of right lower extremity - ICD9: 337.22, ICD10: G90.521 (primary diagnosis) Patient will continue with methadone, Percocet, and a compounded cream. She was warned about getting opiate prescriptions from other providers without our knowledge. Continue with physical therapy. Weight reduction. Repeat EKG in February 2022. Follow-up in office in 6 weeks time. 2. Primary osteoarthritis of both knees - ICD9: 715.16, ICD10: M17.0 3. Plantar fasciitis - ICD9: 728.71, ICD10: M72.2 Greater than two stable chronic illness and prescription medication management. This document was transcribed using a voice recognition software and may contain minor errors. Adama Diallo MD documented in this encounter [facility] 01-01-2022 Miscellaneous Notes Most recent Rheumatology visit: 11/16/2021 (with Daksha Ybarra) Recent Office Visits - This Specialty 11/16/2021 Cerebral vascular disorder Rheumatology Daksha Krishnamurthy MD 03/25/2019 Vasculopathy Rheumatology Daksha Krishnamurthy MD 09/18/2018 Vasculopathy Rheumatology Daksha Krishnamurthy MD Upcoming Rheumatology Appointments - Next 365 Days Visit Type Date Time Department JASMYNE EST VASCULITIS 05/17/2022 9:30 AM [facility] CBC: CBC Latest Ref Rng & Units 06/15/2021 11/20/2021 WBC 3.70 - 11.00 k/uL 7.14 6.22 HEMOGLOBIN 11.5 - 15.5 g/dL 11.8 11.4(L) HEMOGLOBIN, KINZA 12.0 - 16.0 g/dL - - HEMATOCRIT 36.0 - 46.0 % 37.8 35.3(L) PLATELETS 150 - 400 k/uL 267 229 ABS NEUT (ANC) 1.45 - 7.50 k/uL 3.70 3.23 ABS NEUT, KINZA 2.0 - 8.1 k/uL - - ABS LYMP, KINZA 1.0 - 5.5 k/uL - - ABS LYMPH 1.00 - 4.00 k/uL 2.49 2.07 Vitamin D: Vitamin D Latest Ref Rng & Units 03/25/2019 11/20/2021 VITAMIN D 25 HYDROXY 31.0 - 80.0 ng/mL 53.9 54.6 LFT: CMP Latest Ref Rng & Units 06/15/2021 11/20/2021 SODIUM 136 - 144 mmol/L 140 142 SODIUM, KINZA 136 - 145 mmol/L - - SODIUM, KINZA 136 - 145 mmol/L - - POTASSIUM 3.7 - 5.1 mmol/L 3.7 3.5(L) POTASSIUM, KINZA 3.5 - 5.1 mmol/L - - CHLORIDE 97 - 105 mmol/L 105 107(H) CHLORIDE, KINZA 98 - 107 mmol/L - - CO2 22 - 30 mmol/L 26 26 CO2, KINZA 21.0 - 32.0 mmol/L - - GLUCOSE 74 - 99 mg/dL 142(H) 109(H) GLUCOSE, KINZA 70 - 99 mg/dL - - BUN 7 - 21 mg/dL 13 8 BUN, KINZA 7 - 18 mg/dL - - CREATININE 0.58 - 0.96 mg/dL 0.64 0.57(L) CREATININE, KINZA 0.6 - 1.0 mg/dL - - CALCIUM, KINZA 8.5 - 10.1 mg/dL - - CALCIUM, TOTAL 8.5 - 10.2 mg/dL 8.9 8.5 AST 13 - 35 U/L 24 34 AST, KINZA 15 - 37 U/L - - ALT 7 - 38 U/L 29 39(H) ALT, KINZA 30 - 65 U/L - - ALKALINE PHOSPHATASE 34 - 123 U/L 80 75 Creatinine: Creatinine Latest Ref Rng & Units 06/15/2021 11/20/2021 CREAT 0.58 - 0.96 mg/dL 0.64 0.57(L) ESR/CRP: ESR, WSR Latest Ref Rng & Units 03/25/2019 11/20/2021 WSR 0 - 20 mm/hr 10 17 CRP Latest Ref Rng & Units 03/25/2019 11/20/2021 CRP <0.9 mg/dL 0.5 0.4 Uric Acid: None on file in the last 6 months Open Standing (Multiple Instance) Lab Orders Remain Interval Expires Ordered Last Rel. CBC + DIFF [SQCBCDIF] 5/6 Every 2 months 03/05/22 03/05/21 06/15/21 Auth. provider: Daksha Krishnamurthy MD Assoc. diagnoses: Cerebral vascular disorder COMP METABOLIC PANEL [SQCMP] 5/6 Every 2 months 03/05/22 03/05/21 06/15/21 Auth. provider: Daksha Krishnamurthy MD Assoc. diagnoses: Cerebral vascular disorder CBC + DIFF [SQCBCDIF] /6 Every 2 months 07/04/22 07/04/21 Auth. provider: Daksha Krishnamurthy MD Assoc. diagnoses: Cerebral vascular disorder COMP METABOLIC PANEL [SQCMP] /6 Every 2 months 07/04/22 07/04/21 Auth. provider: Daksha Krishnamurthy MD Assoc. diagnoses: Cerebral vascular disorder Open Future (Single Instance) Lab Orders None Nettie Pelaez RN documented in this encounter [facility] 12-29-2021 Miscellaneous Notes The following approved medication requests have been transmitted electronically. Requested Prescriptions Pending Prescriptions Disp Refills methadone (DOLOPHINE) 10 mg tablet 270 tablet 0 Sig: Take 3 tablets by mouth every 8 hours as needed for pain for up to 30 days. Do not start before January 01, 2022. Cristofer Sparks PA-C Patient phones requesting refills as follows: Requested Prescriptions Pending Prescriptions Disp Refills methadone (DOLOPHINE) 10 mg tablet 270 tablet 0 Sig: Take 3 tablets by mouth every 8 hours as needed for pain for up to 30 days. Do not start before January 01, 2022. Please review and advise. Maureen Huston RN documented in this encounter [facility] 12-19-2021 Miscellaneous Notes The following approved medication requests have been transmitted electronically. Requested Prescriptions Pending Prescriptions Disp Refills oxyCODONE-acetaminophen (PERCOCET) 5-325 mg tablet 90 tablet 0 Sig: Take 1 tablet by mouth every 8 hours as needed for pain for up to 30 days. Do not start before December 23, 2021. Cristofer Sparks PA-C Patient phones requesting refills as follows: Requested Prescriptions Pending Prescriptions Disp Refills oxyCODONE-acetaminophen (PERCOCET) 5-325 mg tablet 90 tablet 0 Sig: Take 1 tablet by mouth every 8 hours as needed for pain for up to 30 days. Do not start before December 23, 2021. Please review and advise. Maureen Huston RN documented in this encounter [facility] 12-06-2021 History of Present illness Narrative CC: Patient presents with: Recheck: ER follow up, abdominal pain HPI Stephanie Moore is a 61 year old female who presents today for ER follow-up. Facility: [facility] ER Date of visit: 12/03/21 Reason for visit: Left lower rib pain. Had achiness to left ribs for 2 weeks and then while trying to clean her shower drain on Saturday started with severe pain so went to ER. Hospital course: CXR - no acute process, PT/INR - 1.7, instructed to take 6mg of Coumadin that day. Is typically on 5 mg of Coumadin every day so restarted the 5mg of coumadin daily. Has not had any recent dosage changes. Performs home INR readings, last one 2 weeks ago was 2.1 Diagnosis: muscular pain and spasm Discharge: ice, rest Current symptoms: Pain is present with movement and gets very sharp. States is is so severe she can't take a breath for a moment. Is on chronic pain medication, cyclobenzaprine, and started a steroid taper yesterday for shoulder pain but has no improvement yet. Denies injury fever, chills, cough, chest pain, shortness of breath, nausea, vomiting, or skin changes. REVIEW OF SYSTEMS General: no fevers, no chills, no night sweats, no recurrent infections, no change in appetite, no change in energy, and no significant changes in weight Respiratory: no cough, no wheezing, no shortness of breath, no hemoptysis Cardiovascular: no chest pain, no chest pressure, no palpitations, and no swelling GI: No nausea, vomiting, or diarrhea Neurologic: No headache, weakness, numbness, tingling, dizziness, syncope. 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 Vasculitis ([facility]) PAST SURGICAL HISTORY Procedure Laterality Date ARTHROSCOPY KNEE DIAGNOSTIC W/WO SYNOVIAL BX SPX 1996,1999 Arthroscopy, knee right X 2 ARTHRP INTERPOS INTERCARPAL/METACARPAL JOINTS Left 06/29/2016 Left thumb CMC arthroplasty with ligament reconstruction and tendon interposition DELIVERY ONLY X3 , low cervical COLONOSCOPY FLX DX W/COLLJ SPEC WHEN PFRMD 08/27/2018 Colonoscopy DILATION & CURETTAGE DX&/THER NONOBSTETRIC Dilation & curettage ESOPHAGOGASTRODUODENOSCOPY TRANSORAL DIAGNOSTIC 08/27/2018 EGD LAPS SURG CHOLECYSTECTOMY W/CHOLANGIOGRAPHY 07/19/2005 NEUROPLASTY &/TRANSPOS MEDIAN NRV CARPAL TUNNE Carpal tunnel decomp bilateral PAST SURGICAL HISTORY OF 2004 removal spinal cord stimulator PAST SURGICAL HISTORY OF right foot tendon release, PAST SURGICAL HISTORY OF 07/2014 Left wrist, first dorsal compartment release PAST SURGICAL HISTORY OF plantar fascitis S SPINAL CORD STIMULATOR, 1999 SPINL CRD STIM MIKAYLA/REM SCS EL TOTAL ABDOMINAL HYSTERECT W/WO RMVL TUBE OVARY Hysterectomy, IMTIAZ ALLERGIES Hydrocodone-Acetaminophen, Opioids - Morphine Analogues, Pentazocine, Propoxyphene, Steri Strips And Paper Tape [Other], and [place] [Pentazocine-Acetaminophen] MEDICATIONS methadone (DOLOPHINE) 10 mg tablet Take 3 tablets by mouth every 8 hours as needed for pain for up to 30 days. Do not start before December 02, 2021. oxyCODONE-acetaminophen (PERCOCET) 5-325 mg tablet Take 1 tablet by mouth every 8 hours as needed for pain for up to [address] Bassett Do not start before November 19, 2021. mycophenolate Mofetil (CELLCEPT) 500 mg tablet TAKE 2 TABLETS BY MOUTH TWICE DAILY. ascorbic acid, vitamin C, (VITAMIN C) 500 mg tablet Take 500 mg by mouth twice daily. Albuterol Sulfate 0.63 mg/3 mL nebulizer solution albuterol sulfate 0.63 mg/3 mL solution for nebulization ALPRAZolam (XANAX) 1 mg tablet alprazolam 1 mg tablet baclofen (LIORESAL) 10 mg tablet TAKE 1 TABLET BY MOUTH EVERY EIGHT HOURS NEEDED TAKE NEEDED FOR MUSCLE SPASM cyclobenzaprine (FLEXERIL) 10 mg tablet TAKE 3 TIMES DAILY diazePAM (VALIUM) 5 mg tablet TAKE 1 TO 2 TABLETS BY MOUTH 30 MINUTES PRIOR TO MRI famotidine (PEPCID) 20 mg tablet Pepcid 20 mg tablet furosemide (LASIX) 40 mg tablet Lasix 40 mg tablet metoprolol tartrate, short acting, (LOPRESSOR) 25 mg tablet ondansetron (ZOFRAN) 4 mg tablet AT BEDTIME polyethylene glycol 3350 (MIRALAX, GLYCOLAX) 17 gram/dose powder Miralax 17 gram/dose powder atorvastatin (LIPITOR) 40 mg tablet TAKE 1 TABLET BY MOUTH EVERY DAY carvedilol (COREG) 12.5 mg tablet TAKE 1 TABLET BY MOUTH TWICE A DAY warfarin (COUMADIN) 5 mg tablet TAKE 1 TABLET BY MOUTH ONCE DAILY mycophenolate Mofetil (CELLCEPT) 500 mg tablet Take 2 tablets by mouth twice daily. pantoprazole DR (PROTONIX) 20 mg tablet Take 1 tablet by mouth twice daily. Take on empty stomach, 1/2 hr before meal. enoxaparin (LOVENOX) 100 mg/mL syrg Inject 1 mL subcutaneously every 12 hours. busPIRone (BUSPAR) 10 mg tablet Take 1 tablet by mouth three times daily. sertraline (ZOLOFT) 100 mg tablet Take 1 tablet by mouth once daily. warfarin (COUMADIN) 2 mg tablet TAKE 2 TABLETS ON SATURDAY, SATURDAY, SATURDAY AND SATURDAY. warfarin (COUMADIN) 1 mg tablet Take as directed by [facility] Anticoagulation Clinic. Cholecalciferol, Vitamin D3, 50 mcg (2,000 unit) cap Take 2 capsules by mouth once daily. aspirin 81 mg chewable tablet Take 81 mg by mouth once daily. FAMILY HISTORY Problem Relation Age of Onset Cancer Mother lung/brain/pancreatic Hypertension Father Cancer Father Colon Arthritis Father Heart Sister no details MVP Arthritis Brother Stroke Paternal Grandfather Multiple Sclerosis Sister No Known Problems Brother Multiple Sclerosis Son Social History Tobacco Use Smoking status: Former Packs/day: 1.00 Years: 7.00 Pack years: 7.00 Types: Cigarettes Quit date: 01/06/1998 Years since quittin.9 Smokeless tobacco: Never Substance Use Topics Alcohol use: No Drug use: No PHYSICAL EXAM BP 140/76 Pulse 64 Resp 16 Wt 112.5 kg (248 lb) BMI 41.27 kg/m General Appearance: well appearing, in no acute distress, alert Skin: Skin color, texture, turgor normal for age; Eyes: conjunctiva pink and moist, no icterus, sclera white, non-injected Neck: Thyroid normal size and symmetric without palpable nodules, No adenopathy Lymph nodes: No cervical lymphadenopathy and No supraclavicular lymphadenopathy Lungs: Lungs clear to auscultation. No wheezing, rhonchi, rales. Heart: RRR without murmur, gallop, or rubs. No ectopy Abdomen: Abdomen soft, non-tender. Bowel sounds normal. No masses, organomegaly Extremities: No deformities, edema, skin discoloration, clubbing or cyanosis. Good capillary refill. Musculoskeletal: No joint swelling, deformity, Very tender to left lower ribs with palpation and pain elicited with movement. SHINGRIX VACCINE(1 of 2) Never done PNEUMOCOCCAL(2 - PPSV23 if available, else PCV20) due on 01/29/2019 COVID-19 VACCINE(4 - Booster for Moderna series) due on 04/28/2021 INFLUENZA(1) due on 10/26/2021 MAMMOGRAM due on 06/16/2022 COLORECTAL CANCER SCREENING due on 08/28/2023 DIABETES SCREEN due on 11/20/2024 LIPID SCREEN due on 03/19/2025 DTAP,TDAP,TD(2 - Td or Tdap) due on 09/16/2031 HEPATITIS C SCREENING Completed PAP TESTING Discontinued HPV TESTING Discontinued HIV SCREENING Discontinued DATA REVIEWED: Outside chart from [facility] reviewed. ASSESSMENT/PLAN: 1. Muscle spasm - ICD9: 728.85, ICD10: M62.838 (primary diagnosis) - area very tender, will do lidocaine patches and have patient continue with ice recommendations by ER - follow up if no improvement over the next few days or if any new symptoms arise like rash ,shortness of breath, or any other concerns. 2. Muscle strain - ICD9: 848.9, ICD10: T14.8XXA As above 3. Anticoagulated on Coumadin - ICD9: V58.61, ICD10: Z79.01 - patient coumadin dosing controlled through coumadin clinic and states she has not had an un therapeutic INR in a very long time. Will have her continue current dose and recheck INR on Saturday. Prescription instructions reviewed with patient as applicable. Potential red flag symptoms discussed with the patient. Reviewed appropriate action plan to take if red flag symptoms occur. Patient agreeable to treatment plan. Tracy Paige APRN.CNP documented in this encounter [facility] 11-28-2021 Miscellaneous Notes The following approved medication requests have been transmitted electronically. Requested Prescriptions Pending Prescriptions Disp Refills methadone (DOLOPHINE) 10 mg tablet 270 tablet 0 Sig: Take 3 tablets by mouth every 8 hours as needed for pain for up to 30 days. Do not start before December 02, 2021. Cristofer Sparks PA-C Patient phones requesting refills as follows: Requested Prescriptions Pending Prescriptions Disp Refills methadone (DOLOPHINE) 10 mg tablet 270 tablet 0 Sig: Take 3 tablets by mouth every 8 hours as needed for pain for up to 30 days. Do not start before December 02, 2021. 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 She does have indirect evidence of inflammation in the CSF. Unfortunately an MRA cannot be performed because of all stimulator. Further a brain biopsy would not be diagnostic giving the large vessel vasculopathy. 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 She also have positive lupus anticoagulant and factor V. However her angiogram was not suggestive of clot pathology in her cerebral vessel. At any rate she's been treated with Coumadin. 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 But possible morphia of her forehead although dermatology did not agree on this diagnosis Interval history: She persists to have headache has not had follow-up appointment since 2019. Has not seen primary care doctor either she is telling me that she does did have a sleep test but does not know who ordered it and where she did it and what are the results she remains on CellCept. Current Outpatient Medications Medication Sig methadone (DOLOPHINE) 10 mg tablet Take 3 tablets by mouth every 8 hours as needed for pain for up to 30 days. Do not start before November 03, 2021. oxyCODONE-acetaminophen (PERCOCET) 5-325 mg tablet Take 1 tablet by mouth every 8 hours as needed for pain for up to [address] Bassett Do not start before October 19, 2021. mycophenolate Mofetil (CELLCEPT) 500 mg tablet TAKE 2 TABLETS BY MOUTH TWICE DAILY. ascorbic acid, vitamin C, (VITAMIN C) 500 mg tablet Take 500 mg by mouth twice daily. Albuterol Sulfate 0.63 mg/3 mL nebulizer solution albuterol sulfate 0.63 mg/3 mL solution for nebulization ALPRAZolam (XANAX) 1 mg tablet alprazolam 1 mg tablet baclofen (LIORESAL) 10 mg tablet TAKE 1 TABLET BY MOUTH EVERY EIGHT HOURS NEEDED TAKE NEEDED FOR MUSCLE SPASM cyclobenzaprine (FLEXERIL) 10 mg tablet TAKE 3 TIMES DAILY diazePAM (VALIUM) 5 mg tablet TAKE 1 TO 2 TABLETS BY MOUTH 30 MINUTES PRIOR TO MRI famotidine (PEPCID) 20 mg tablet Pepcid 20 mg tablet furosemide (LASIX) 40 mg tablet Lasix 40 mg tablet metoprolol tartrate, short acting, (LOPRESSOR) 25 mg tablet ondansetron (ZOFRAN) 4 mg tablet AT BEDTIME polyethylene glycol 3350 (MIRALAX, GLYCOLAX) 17 gram/dose powder Miralax 17 gram/dose powder atorvastatin (LIPITOR) 40 mg tablet TAKE 1 TABLET BY MOUTH EVERY DAY carvedilol (COREG) 12.5 mg tablet TAKE 1 TABLET BY MOUTH TWICE A DAY warfarin (COUMADIN) 5 mg tablet TAKE 1 TABLET BY MOUTH ONCE DAILY mycophenolate Mofetil (CELLCEPT) 500 mg tablet Take 2 tablets by mouth twice daily. pantoprazole DR (PROTONIX) 20 mg tablet Take 1 tablet by mouth twice daily. Take on empty stomach, 1/2 hr before meal. enoxaparin (LOVENOX) 100 mg/mL syrg Inject 1 mL subcutaneously every 12 hours. busPIRone (BUSPAR) 10 mg tablet Take 1 tablet by mouth three times daily. sertraline (ZOLOFT) 100 mg tablet Take 1 tablet by mouth once daily. warfarin (COUMADIN) 2 mg tablet TAKE 2 TABLETS ON SATURDAY, SATURDAY, SATURDAY AND SATURDAY. warfarin (COUMADIN) 1 mg tablet Take as directed by [facility] Anticoagulation Clinic. Cholecalciferol, Vitamin D3, 50 mcg (2,000 unit) cap Take 2 capsules by mouth once daily. aspirin 81 mg chewable tablet Take 81 mg by mouth once daily. No current facility-administered medications for this visit. 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 Vasculitis ([facility]) Stenosis of Right Internal Carotid Artery Tia (Transient Ischemic Attack) Acute Angle-Closure Glaucoma of Left Eye Sinus Bradycardia Ponv (Postoperative Nausea and Vomiting) Hypokalemia Snf (Current) Use of Anticoagulants Lupus Anticoagulant Positive Snf (Current) Use of Opiate Analgesic Osteoarthritis of Knee Plantar Fasciitis Primary Osteoarthritis of Both Knees 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 Vasculitis ([facility]) FAMILY HISTORY Problem Relation Age of Onset Cancer Mother lung/brain/pancreatic Hypertension Father Cancer Father Colon Arthritis Father Heart Sister no details MVP Arthritis Brother Stroke Paternal Grandfather Multiple Sclerosis Sister No Known Problems Brother Multiple Sclerosis Son Social History Tobacco Use Smoking status: Former Packs/day: 1.00 Years: 7.00 Pack years: 7.00 Types: Cigarettes Quit date: 01/06/1998 Years since quittin.8 Smokeless tobacco: Never Substance Use Topics Alcohol use: No Drug use: No Review of Systems CONSTITUTION: Negative for: Weight loss or gain, Fever. Chills, Night sweats HEENT: Negative for: Nosebleeds, Mouth sores, Trouble swallowing, Dry mouth RESPIRATORY: Negative for: Cough, Shortness of breath, Pain with breathing, Coughing up blood GASTROINTESTINAL: Negative for: Melena, Diarrhea, Abdominal pain, Heartburn, MUSCULOSKELETAL: Positive for: Arthralgias NEUROLOGICAL: Positive for: Headaches SKIN: Negative for: Rashes, Sun sensitive rashes, Skin color changes, Hair loss, Nail changes EYES: Negative for: Eye pain, Eye redness, Visual disturbance, Eye dryness CARDIOVASCULAR: Negative for: Chest pain, Leg swelling, Arrhythmia, Presyncope GENITOURINARY: Negative for: Dysuria, Hematuria, Ulceration HEMATOLOGIC/LYMPHATIC: Negative for: Swollen glands PHYSICAL EXAM GENERAL APPEARANCE: WD/WN, NAD. Appropriate grooming. VITALS: Blood pressure 121/50, pulse 63, temperature 36.1 C (96.9 F), temperature source Temporal, weight 111.9 kg (246 lb 11.2 oz). SKIN: Livedoid pattern of the skin EYES: EOMI, PERRLA, no conjunctival injection or icterus HEENT: normal hair distribution. moist mouth, no glossitis, own teeth, no salivary gland swelling. Neck supple w/o masses. No thyromegaly. No cerv/ax/inguinal adenopathy. CHEST: clear to percussion/auscultation HEART: RRR, Nl S1,S2 ABDOMEN: soft, non-tender, normal BS MUSCULOSKELETAL: Gait wnl w/o assistive devices. NEURO: Nonfocal JOINTS REVIEW: Crepitus both knees (I67.9) Cerebral vascular disorder (primary encounter diagnosis) (Z79.899) High risk medication use (R89.4) Serologic abnormality (I73.00) Raynaud's disease without gangrene (R23.1) Livedo reticularis Recent CTA stable She has been very noncompliant with her appointment and her blood test I reiterated the importance of having her blood test monitoring giving her CellCept. Her diagnosis is possible cerebral vasculitis in the setting of background autoimmunity and lupus anticoagulant. I urged her to have an appointment with her primary care giving multiple different medical issues. Blood test every year 2 months repeat serology today. Follow-up in 6 months appointment has been made today Office Visit on 11/16/21 COMP METABOLIC PANEL CBC + DIFF C-REACTIVE PROTEIN (CRP) DNA AB DS + CONF BLD URINALYSIS, WITH MICROSCOPIC VITAMIN D 25 HYDROXY ANTI NE ID SED RATE WESTERGNOREEN Ybarra MD documented in this encounter [facility] 11-16-2021 Instructions Laureen Naidu APRN.MENTAL HYGIENIST - 11/16/2021 9:51 AM EDT Regarding your visit with Dr. 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, appears stable from recent imaging in June 2021 Right supraclinoid internal carotid artery stenosis Migraine-type headache without aura Left posterior canal benign paroxysmal positional vertigo Obstructive sleep apnea Atrial fibrillation Anti-phospholipid antibody syndrome DVT, provoked by surgery 20 years ago Remote tobacco use Hypertension: Blood pressure goal < 130/80 Blood pressure today: BP 121/50 (BP Site: Left Arm, BP Position: Sitting, BP Cuff Size: Large Adult) Pulse 63 Temp 36.1 C (96.9 F) (Temporal) Resp 14 Ht 165.1 cm (5' 5 ) Wt 109.9 kg (242 lb 4.8 oz) SpO2 99% BMI 40.32 kg/m Hyperlipidemia: LDL goal < 70 Most recent LDL: LDL Cholesterol (mg/dL) Date Value 03/19/2020 58 Diabetes: Hba1c goal < 7.0 Most recent Hba1c: Hemoglobin A1C (%) Date Value 03/19/2020 6.3 Recommendations: Continue monitoring for history of cerebral vasculitis with follow-up CTA head/neck imaging in summer 2022 Continue warfarin and aspirin Vitamin supplements for headaches, report any worsening headaches or persistent headaches despite vitamins after 1 month for referral to headache clinic Referral to vestibular rehab physical therapy for vertigo Referral to sleep medicine for sleep apnea and follow-up after recent sleep study in 09/2021 Follow-up with cardiology as planned for atrial fibrillation Regular follow up with primary care doctor for health maintenance -Assist ensuring blood pressure and cholesterol are at goal -Screen and manage diabetes Lifestyle modification -- Establish goals -Diet -Regular Exercise as discussed -Establish weight goals with primary care doctor Additional stroke reduction measures and stroke warning signs are listed below. Return to see me in 1 year Please do not hesitate to call if you have any questions Sourav Kirk, [facility] [address] [place] [address] / [address] [address] Office: [phone] ~~~~~~~~~~~~~~~~~~~~~~~~~~~~~~~~~~ ~~~~~~~~~~~~~~~~~~~~~~~~~~~~~~~~~~ ~~~~ Stroke Signs and Symptoms: *Stroke is a [...] available if action is taken early enough. ~~~~~~~~~~~~~~~~~~~~~~~~~~~~~~~~~~ ~~~~~~~~~~~~~~~~~~~~~~~~~~~~~~~~~~ ~~~~ General Guidelines to Help Reduce Risk of [...] regimen, may be considered Adopted from the [place] [employer] Attack : A Guideline for Healthcare Professionals From the [place] [employer] Guidelines for the Prevention of Stroke in Patients With Stroke or Transient Ischemic - 2014 Supplements that show potential to prevent migraines Magnesium: Magnesium Oxide (500 mg at bedtime) has a relaxant effect on smooth muscles such as blood vessels. Individuals suffering from frequent or daily headache usually have low magnesium levels which can be increase with daily supplementation of 400-750 mg. Three trials found 40-90% average headache reduction when used as a preventative. Magnesium also demonstrated the benefit in menstrually related migraine. Magnesium is part of the messenger system in the serotonin cascade and it is a good muscle relaxant. It is also useful for constipation which can be a side effect of other medications used to treat migraine. Good sources include nuts, whole grains, and tomatoes. Riboflavin (vitamin B 2) 200 mg twice a day (two 100 mg pills) or 400 mg once a day. This vitamin assists nerve cells in the production of ATP a principal energy storing molecule. It is necessary for many chemical reactions in the body. There have been at least 3 clinical trials of riboflavin using 400 mg per day all of which suggested that migraine frequency can be decreased. All 3 trials showed significant improvement in over half of migraine sufferers. The supplement is found in bread, cereal, milk, meat, and poultry. Most Americans get more riboflavin than the recommended daily allowance, however riboflavin deficiency is not necessary for the supplements to help prevent headache. This can be difficult to find outside of a health food store. You may try a web site such as www.Sendori. Coenzyme Q10: This is present in almost all cells in the body and is critical component for the conversion of energy. Recent studies have shown that a nutritional supplement of CoQ10 can reduce the frequency of migraine attacks by improving the energy production of cells as with riboflavin. Doses of 300 mg daily have been shown to be effective. Melatonin: Increasing evidence shows correlation between melatonin secretion and headache conditions. Melatonin supplementation has decreased headache intensity and duration. It is widely used as a sleep aid. Sleep is nature's way of dealing with migraine. A dose of 3-6 mg is recommended to start for difficulty sleeping and for headaches including cluster headache. Doses up to 20 mg have been used. The rationale behind using melatonin for cluster is that many theories regarding the cause of cluster headache center around the disruption of the normal circadian rhythm in the brain. This helps restore the normal circadian rhythm. Melatonin should be taken 1-2 hours before bedtime. documented in this encounter [facility] 11-16-2021 History of Present illness Narrative CEREBROVASCULAR CENTER Established Visit Consultation is requested by: Sourav Kirk [address] [facility] [id number] PCP: Anuj Hanson [address] [place] [address] CEREBROVASCULAR HISTORY Stephanie Moore is a 61 year old right-handed female who presents for follow-up evaluation of stroke and right carotid artery stenosis. 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 Her symptoms started in July 2017 with progressive left sided weakness, headache, and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 Clinic Pharmacy Anticoagulation Clinic Pager: [phone] documented in this encounter [facility] 08-15-2021 Miscellaneous Notes PATIENT CALL Received call from Gabrielle with [facility] Remote INR to report home meter result for patient. [facility] has already addressed this result (see below); nothing further needed at this time. Daniela Manning CPhT ([employer]) Pharmacy Anticoagulation Clinic [facility] Ambulatory Pharmacy Anticoagulation Clinic Anticoagulation Episode Summary Anticoagulation Care Providers Provider Role Specialty Phone number Anuj Hanson MD Referring Internal Medicine [phone] Jose Beltran DO Responsible Hematology/Oncology [phone] Stephanie Moore is a 61 year old year old female patient being evaluated today for a Telemanagement visit. Patient is currently on the following anticoagulant(s) Warfarin. Labs PT INR (no units) Date Value 05/30/2021 2.3 biotel 05/17/2021 1.8 (biotel) 04/03/2021 2.9 INR Home CoaguChek (no units) Date Value 08/15/2021 1.5 07/25/2021 2.1 07/11/2021 2.3 Hemoglobin (g/dL) Date Value 06/15/2021 11.8 03/19/2020 11.3 Hematocrit (%) Date Value 06/15/2021 37.8 03/19/2020 38.7 Platelet Count (k/uL) Date Value 06/15/2021 267 03/19/2020 270 Creatinine (mg/dL) Date Value 06/15/2021 0.64 03/19/2020 0.75 03/15/2020 0.80 10/13/2019 0.73 Bilirubin, Total (mg/dL) Date Value 06/15/2021 0.3 03/19/2020 0.4 ALT (U/L) Date Value 06/15/2021 29 03/19/2020 17 AST (U/L) Date Value 06/15/2021 24 03/19/2020 22 CrCl cannot be calculated (Unknown ideal weight.). ALLERGIES Allergen Reactions Opioids - Morphine * vicodin Pentazocine talwin Propoxyphene darvacet Steri Strips And Pa* Talacen [Pentazocin* Mental Status Change Indication for Warfarin: Anticoagulation Episode Summary Current INR goal: 2.0-3.0 Assessment: INR result of 1.5 is SUBtherapeutic due to: Re-titration post-procedure Plan: Called and spoke to patient/caregiver Advised patient to 7.5 mg TuesWed and continue Lovenox 100 mg every 12 hours Next home INR check scheduled on 08/17/2021 Patient verbalizes understanding of the plan. Adele Menon RPh Clinical Pharmacist, Pharmacy Anticoagulation Clinic Pharmacy Anticoagulation Clinic Pager: [phone] . documented in this encounter [facility] 08-11-2021 Miscellaneous Notes Sent a [employer] message asking pt to call the office to schedule a follow up apt. Patient has been identified by name and date of : Yes Patient phones for refill(s): Pending Prescriptions Disp Refills CARVEDILOL 12.5 MG TABLET 180 tablet 0 Sig: TAKE 1 TABLET BY MOUTH TWICE A DAY COREY: Yes Date of last office visit in primary care: 11/16/20 Last 2 Encounter Wt Readings: Date: Wt: 11/26/2020 107.8 kg (237 lb 9.6 oz) 11/16/2020 104.3 kg (230 lb) Previous labs/tests for medication: Not applicable Please advise. Thank you. Rekha Carvajal LPN documented in this encounter [facility] 08-09-2021 Miscellaneous Notes I faxed the form yesterday at 4:05 pm and received confirmation. Form faxed again today. Tg Ramos LPN Miryam from [facility] calling and states patient is scheduled to have rotator cuff surgery tomorrow and cannot if clearance form is not completed by Dr. Beltran's office today. She states the form has been faxed to Dr. Beltran's office. If form can be completed, please complete and fax to [phone]. If questions call Miryam at [facility] today at [phone]. Thank you. documented in this encounter [facility] 08-09-2021 Miscellaneous Notes Patient has been identified by name and date of : Yes Patient phones for refill(s): Pending Prescriptions Disp Refills WARFARIN 5 MG TABLET 90 tablet 1 Sig: TAKE 1 TABLET BY MOUTH ONCE DAILY COREY: Yes Date of last office visit in primary care: 11/16/2020 Last 2 Encounter Wt Readings: Date: Wt: 11/26/2020 107.8 kg (237 lb 9.6 oz) 11/16/2020 104.3 kg (230 lb) Previous labs/tests for medication: Coumadin: PT INR (no units) Date Value 05/30/2021 2.3 biotel INR Home CoaguChek (no units) Date Value 07/25/2021 2.1 Please advise. Thank you. Adele Dawn LPN documented in this encounter [facility] 07-25-2021 Miscellaneous Notes [facility] Ambulatory Pharmacy Anticoagulation Clinic Anticoagulation Episode Summary Anticoagulation Care Providers Provider Role Specialty Phone number Anuj Hanson MD Referring Internal Medicine [phone] Jose Beltran DO Responsible Hematology/Oncology [phone] Stephanie Moore is a 61 year old year old female patient being evaluated today for a Telemanagement visit. Patient is currently on the following anticoagulant(s) Warfarin. Labs PT INR (no units) Date Value 05/30/2021 2.3 biotel 05/17/2021 1.8 (biotel) 04/03/2021 2.9 INR Home CoaguChek (no units) Date Value 07/25/2021 2.1 07/11/2021 2.3 06/27/2021 2.0 Hemoglobin (g/dL) Date Value 06/15/2021 11.8 03/19/2020 11.3 Hematocrit (%) Date Value 06/15/2021 37.8 03/19/2020 38.7 Platelet Count (k/uL) Date Value 06/15/2021 267 03/19/2020 270 Creatinine (mg/dL) Date Value 06/15/2021 0.64 03/19/2020 0.75 03/15/2020 0.80 10/13/2019 0.73 Bilirubin, Total (mg/dL) Date Value 06/15/2021 0.3 03/19/2020 0.4 ALT (U/L) Date Value 06/15/2021 29 03/19/2020 17 AST (U/L) Date Value 06/15/2021 24 03/19/2020 22 CrCl cannot be calculated (Unknown ideal weight.). ALLERGIES Allergen Reactions Opioids - Morphine * vicodin Pentazocine talwin Propoxyphene darvacet Steri Strips And Pa* Talacen [Pentazocin* Mental Status Change Indication for Warfarin: Anticoagulation Episode Summary Current INR goal: 2.0-3.0 Assessment: INR result of 2.1 is therapeutic Plan: Left voice message Advised patient to continue current weekly dose until 08/05 when you start holding warfarin prior to procedure on 08/10. Will also bridge with lovenox. Lovenox bridge in other encounter Next home INR check scheduled on 08/15/2021 Adele Menon RPh Clinical Pharmacist, Pharmacy Anticoagulation Clinic Pharmacy Anticoagulation Clinic Pager: [phone] . documented in this encounter [facility] 07-25-2021 Miscellaneous Notes Called and spoke with patient. Reviewed bridge plan. Patient picked up a refill of enoxaparin of 28 syringes. Patient has given enoxaparin to herself before. Will also send via [employer]_. Date Enoxaparin Warfarin 08/04 None Last dose 08/05 None None 08/06 None None 08/07 100 mg every 12 hours None 08/08 100 mg every 12 hours None 08/09 100 mg in the morning only None 08/10 Procedure day Do not take 7.5 mg post procedure if instructed to resume by surgeon 08/11 100 mg every 12 hours 7.5 mg 08/12 100 mg every 12 hours 7.5 mg 08/13 100 mg every 12 hours 5 mg 08/14 100 mg every 12 hours 5 mg 08/15 100 mg every 12 hours Continue parenteral agent until INR at target range Check INR with home meter Next Action for Anti coag Management: TM 08/15 Chula Rossi, Pharm. D. Images from the original note were not included. Jeronimo Torres. Thank you. That plan for Lovenox bridging is good. Dr. Beltran Message text [facility] Ambulatory Pharmacy Anticoagulation Perioperative Planning Stephanie Moore is an 61 year old female being evaluated today for perioperative planning. Indication for anticoagulation: hypercoaguable state, hx CVA, DVT INR goal: 2-3 Referring physician: Dr. Beltran Current anticoagulant: Warfarin Procedure: shoulder surgery Date of procedure: 08/10 Procedural bleeding risk (see [facility] appendix): Moderate Patient bleeding risk: HASBLED score 1 Thrombosis risk (include [id number] if indication is afib): High Weight: Last 1 Encounter Wt Readings: Date: Wt: 11/26/2020 107.8 kg (237 lb 9.6 oz) ALLERGIES Allergen Reactions Opioids - Morphine * vicodin Pentazocine talwin Propoxyphene darvacet Steri Strips And Pa* Talacen [Pentazocin* Mental Status Change CBC/ PLT: Hemoglobin (g/dL) Date Value 06/15/2021 11.8 03/19/2020 11.3 03/15/2020 12.4 10/13/2019 12.2 Hematocrit (%) Date Value 06/15/2021 37.8 03/19/2020 38.7 03/15/2020 39.3 10/13/2019 39.9 Platelet Count Date Value Ref Range Status 06/15/2021 267 150 - 400 k/uL Final 03/19/2020 270 150 - 400 k/uL Final 03/15/2020 271 150 - 400 k/uL Final Renal function: Creatinine Date Value Ref Range Status 06/15/2021 0.64 0.58 - 0.96 mg/dL Final 03/19/2020 0.75 0.58 - 0.96 mg/dL Final 03/15/2020 0.80 0.58 - 0.96 mg/dL Final Creatinine clearance cannot be calculated (Unknown ideal weight.) PT INR (no units) Date Value 05/30/2021 2.3 biotel 05/17/2021 1.8 (biotel) 04/03/2021 2.9 INR Home CoaguChek (no units) Date Value 07/11/2021 2.3 06/27/2021 2.0 06/13/2021 2.0 Plan: Date Parenteral agent Warfarin 08/04 None Last dose 08/05 None None 08/06 None None 08/07 100 mg every 12 hours None 08/08 100 mg every 12 hours None 08/09 100 mg in the morning only None 08/10 Procedure day Do not take 7.5 mg post procedure if instructed to resume by surgeon 08/11 100 mg every 12 hours 7.5 mg 08/12 100 mg every 12 hours 7.5 mg 08/13 100 mg every 12 hours 5 mg 08/14 100 mg every 12 hours 5 mg 08/15 100 mg every 12 hours Continue parenteral agent until INR at target range Check INR with home meter Patient is being asked to follow the above instructions pre and post-procedure unless otherwise specified by proceduralist. Next action for Anticoagulation Management: [facility] Referring MD approval Next home INR: 07/25 Sherie Umana [facility] Clinical Pharmacist, Pharmacy Anticoagulation Clinic Pharmacy Anticoagulation Clinic Pager: [phone] Patient is scheduled for Rt. Rotator cuff surgery on 08/10/21 at [facility]. Patient has already picked up Lovenox 100mg syringes left from a refill. Next Action for Anti coag Management: TM 07/21 Gabrielle Gonzales RN Pharmacy Anticoagulation Clinic documented in this encounter [facility] 06-29-2021 History of Present illness Narrative Radiology Service Progress Note DATE OF SERVICE: June 29, 2021 TIME: 3:40 PM PATIENT IDENTITY VERIFICATION COMPLETED USING TWO (2) STANDARD IDENTIFIERS: Name and Date of confirmed by patient verbally. FALL SCREENING: Has the patient had 2 falls in the last year or 1 fall with injury or currently using an Ambulatory Assistive Device (Walker, Cane, Wheelchair, Crutches, etc.)? No PATIENT GENDER DATA: Female. status: : No status: NO. PATIENT RELEVANT IMPLANT DATA REVIEWED: Yes ALLERGIES: Reviewed and unchanged CONTRAST ALLERGY: NO. EXAM: CT -CONTRAST INDUCED NEPHROPATHY RISK FACTORS: Not applicable CREATININE: Creatinine Date Value Ref Range Status 06/15/2021 0.64 0.58 - 0.96 mg/dL Final 03/19/2020 0.75 0.58 - 0.96 mg/dL Final 03/15/2020 0.80 0.58 - 0.96 mg/dL Final Estimated Glomerular Filtration Rate Date Value Ref Range Status 06/15/2021 102 >=60 mL/min/1.73m Final Comment: Estimated Glomerular Filtration Rate (eGFR) is calculated using the 2020 CKD-EPI creatinine equation. This equation utilizes serum creatinine, sex, and age as parameters. The creatinine assay has traceable calibration to isotope dilution-mass spectrometry. Refer to KDIGO guidelines for clinical interpretation. In patients with unstable renal function, e.g. those with acute kidney injury, the eGFR may not accurately reflect actual GFR. eGFR- Date Value Ref Range Status 03/19/2020 >60 Final P.O.C.T. RESULTS: POC done: Yes, See Lab Tab June 29, 2021 TREATMENT: N/A PERIPHERAL IV DATA: Ambulatory: A peripheral IV was started in the Left antecubital site with a Angio cath: 18 gauge. RADIOLOGY DEPARTMENT: CT; Exam(s) Completed: Brain , CTA Brain and CTA Neck SIGNATURE: RT Ancelmo(R) PATIENT NAME: Stephanie Moore DATE: June 29, 2021 TIME: 3:40 PM documented in this encounter [facility] 06-27-2021 Miscellaneous Notes Patient due to test INR today. Will continue to monitor for results. Vikas Perez RPh documented in this encounter [facility] 06-16-2021 Miscellaneous Notes June 16, 2021 PID: [id number] Stephanie Batista Teresa [address] [place] [address] Dear Ms. Moore, We are pleased to inform you that the results of your recent breast imaging exam on 06/16/2021 are normal. Early detection of cancer is very important. We also understand recommendations regarding breast cancer screening are controversial. Please discuss with your primary care provider which strategy is best for you and whether a mammogram is right for you. Your imaging studies and report will be kept on file at [facility] as part of your permanent medical record and are available for your continuing care. Thank you for allowing us to help in meeting your health care needs. Sincerely, Dr. Case Interpreting Radiologist [facility] (Normal over 40) documented in this encounter [facility] 06-16-2021 History of Present illness Narrative Radiology Service Progress Note PATIENT NAME: Stephanie Moore DATE OF SERVICE: June 16, 2021 TIME: 2:14 PM PATIENT IDENTITY VERIFICATION COMPLETED USING TWO (2) IDENTIFIERS: Name and Date of confirmed by patient verbally. FALL SCREENING: Has the patient had 2 falls in the last year or 1 fall with injury or currently using an Ambulatory Assistive Device (Walker, Cane, Wheelchair, Crutches, etc.)? No PATIENT GENDER DATA: Female. status: : No status: NO. PATIENT RELEVANT IMPLANT DATA REVIEWED: Not Applicable RADIOLOGY DEPARTMENT: Mammography PERIPHERAL IV DATA: Not applicable SIGNED BY: RT Olivier(R) June 16, 2021 2:14 PM documented in this encounter [facility] 06-15-2021 Miscellaneous Notes I had a phone encounter with the patient since she is not compliant with her blood test and follow-up appointment and she keeps calling for refill for her mycophenolate despite the fact that we have communicated with her at multiple encounters that she needs to do her blood test and have a follow-up appointment. I did review again with her that this medication needs to be monitored and she needs follow-up with her imaging to address with the need for continuing f her immunosuppressive medication patient has not been seen since 2019 and her last CTA is in 2018. Last blood test was in 2020 CBC and a CMP. I have placed the order for CTA and she does have blood test order. We will not refill well CellCept until she does her imaging and her blood test. I added her on my schedule next week. Daksha Ybarra MD documented in this encounter [facility] 06-15-2021 Miscellaneous Notes Most recent Rheumatology visit: 03/25/2019 (with Daksha Ybarra) Upcoming Rheumatology Appointments - Next 365 Days No appointments to display Message sent to schedulers for appointment CBC: None on file in the last 6 months Vitamin D: None on file in the last 6 months LFT: None on file in the last 6 months Creatinine:None on file in the last 6 months ESR/CRP: None on file in the last 6 months Uric Acid: None on file in the last 6 months Open Standing (Multiple Instance) Lab Orders Remain Interval Expires Ordered Last Rel. CBC + DIFF [SQCBCDIF] 07/31 Every 2 months 03/05/22 03/05/21 Auth. provider: Daksha Krishnamurthy MD Assoc. diagnoses: Cerebral vascular disorder COMP METABOLIC PANEL [SQCMP] 07/31 Every 2 months 03/05/22 03/05/21 Auth. provider: Daksha Krishnamurthy MD Assoc. diagnoses: Cerebral vascular disorder Open Future (Single Instance) Lab Orders Expected Expires Ordered COMP METABOLIC PANEL [SQCMP] 12/07/20 12/07/21 12/07/20 Auth. provider: Temitope Harvey MD Assoc. diagnoses: High risk medication use CBC + DIFF [SQCBCDIF] 12/07/20 12/07/21 12/07/20 Auth. provider: Temitope Harvey MD Assoc. diagnoses: High risk medication use Nettie Pelaze RN The pharmacy phones requesting refills as follows: Pending Prescriptions Disp Refills MYCOPHENOLATE MOFETIL 500 MG TABLET 120 tablet 2 Sig: Take 2 tablets by mouth twice daily. COREY: No Please review and advise. documented in this encounter [facility] 05-30-2021 Miscellaneous Notes [facility] Ambulatory Pharmacy Anticoagulation Clinic Anticoagulation Episode Summary Anticoagulation Care Providers Provider Role Specialty Phone number Anuj Hanson MD Referring Internal Medicine [phone] Jose Beltran DO Responsible Hematology/Oncology [phone] Stephanie Moore is a 61 year old year old female patient being evaluated today for a Telemanagement visit. Patient is currently on the following anticoagulant(s) Warfarin. Labs PT INR (no units) Date Value 05/30/2021 2.3 biotel 05/17/2021 1.8 (biotel) 04/03/2021 2.9 INR Home CoaguChek (no units) Date Value 05/02/2021 2.4 04/18/2021 1.4 Hemoglobin (g/dL) Date Value 03/19/2020 11.3 Hematocrit (%) Date Value 03/19/2020 38.7 Platelet Count (k/uL) Date Value 03/19/2020 270 Creatinine (mg/dL) Date Value 03/19/2020 0.75 03/15/2020 0.80 10/13/2019 0.73 Bilirubin, Total (mg/dL) Date Value 03/19/2020 0.4 ALT (U/L) Date Value 03/19/2020 17 AST (U/L) Date Value 03/19/2020 22 CrCl cannot be calculated (Patient's most recent lab result is older than the maximum 180 days allowed.). ALLERGIES Allergen Reactions Opioids - Morphine * vicodin Pentazocine talwin Propoxyphene darvacet Steri Strips And Pa* Talacen [Pentazocin* Mental Status Change Indication for Warfarin: Anticoagulation Episode Summary Current INR goal: 2.0-3.0 Assessment: INR result of 2.3 biotel is therapeutic Plan: Called and spoke to patient/caregiver Advised patient to continue current weekly dose Next home INR check scheduled on 06/13/2021 Patient verbalizes understanding of the plan. Adele Menon RPh Clinical Pharmacist, Pharmacy Anticoagulation Clinic Pharmacy Anticoagulation Clinic Pager: [phone] . documented in this encounter [facility] documented as of this encounter (statuses as of 05/30/2021) [facility] History of Past illness Narrative* Problem Noted Date Resolved Date Leukocytosis 02/13/2018 02/14/2018 Last Assessment & Plan: WBC 17 today (12 on admission) Afebrile, VSS No s/s of infection; no dysuria, cough, fever/chills, rash, diarrhea, negative DVT US LEs Assessment: Possibly 2/2 manipulation of L eye vs steroids PLAN: -Monitor for s/s of infection -Ophthalmology evaluation to r/o endophthalmitis -Trend WBC Acute cholecystitis 07/10/2005 11/16/2020 documented as of this encounter (statuses as of 06/15/2021) [facility] of Past illness Narrative* Problem Noted Date Resolved Date Leukocytosis 02/13/2018 02/14/2018 Last Assessment & Plan: WBC 17 today (12 on admission) Afebrile, VSS No s/s of infection; no dysuria, cough, fever/chills, rash, diarrhea, negative DVT US LEs Assessment: Possibly 2/2 manipulation of L eye vs steroids PLAN: -Monitor for s/s of infection -Ophthalmology evaluation to r/o endophthalmitis -Trend WBC Acute cholecystitis 07/10/2005 11/16/2020 documented as of this encounter (statuses as of 06/15/2021) [facility] of Past illness Narrative* Problem Noted Date Resolved Date Leukocytosis 02/13/2018 02/14/2018 Last Assessment & Plan: WBC 17 today (12 on admission) Afebrile, VSS No s/s of infection; no dysuria, cough, fever/chills, rash, diarrhea, negative DVT US LEs Assessment: Possibly 2/2 manipulation of L eye vs steroids PLAN: -Monitor for s/s of infection -Ophthalmology evaluation to r/o endophthalmitis -Trend WBC Acute cholecystitis 07/10/2005 11/16/2020 documented as of this encounter (statuses as of 06/17/2021) [facility] illness Narrative* Problem Noted Date Resolved Date Leukocytosis 02/13/2018 02/14/2018 Last Assessment & Plan: WBC 17 today (12 on admission) Afebrile, VSS No s/s of infection; no dysuria, cough, fever/chills, rash, diarrhea, negative DVT US LEs Assessment: Possibly 2/2 manipulation of L eye vs steroids PLAN: -Monitor for s/s of infection -Ophthalmology evaluation to r/o endophthalmitis -Trend WBC Acute cholecystitis 07/10/2005 11/16/2020 documented as of this encounter (statuses as of 06/20/2021) [facility] of Past illness Narrative* Problem Noted Date Resolved Date Leukocytosis 02/13/2018 02/14/2018 Last Assessment & Plan: WBC 17 today (12 on admission) Afebrile, VSS No s/s of infection; no dysuria, cough, fever/chills, rash, diarrhea, negative DVT US LEs Assessment: Possibly 2/2 manipulation of L eye vs steroids PLAN: -Monitor for s/s of infection -Ophthalmology evaluation to r/o endophthalmitis -Trend WBC Acute cholecystitis 07/10/2005 11/16/2020 documented as of this encounter (statuses as of 06/27/2021) [facility] of [facility] Narrative* Problem Noted Date Resolved Date Leukocytosis 02/13/2018 02/14/2018 Last Assessment & Plan: WBC 17 today (12 on admission) Afebrile, VSS No s/s of infection; no dysuria, cough, fever/chills, rash, diarrhea, negative DVT US LEs Assessment: Possibly 2/2 manipulation of L eye vs steroids PLAN: -Monitor for s/s of infection -Ophthalmology evaluation to r/o endophthalmitis -Trend WBC Acute cholecystitis 07/10/2005 11/16/2020 documented as of this encounter (statuses as of 06/30/2021) [facility] of [facility] illness Narrative* Problem Noted Date Resolved Date Leukocytosis 02/13/2018 02/14/2018 Last Assessment & Plan: WBC 17 today (12 on admission) Afebrile, VSS No s/s of infection; no dysuria, cough, fever/chills, rash, diarrhea, negative DVT US LEs Assessment: Possibly 2/2 manipulation of L eye vs steroids PLAN: -Monitor for s/s of infection -Ophthalmology evaluation to r/o endophthalmitis -Trend WBC Acute cholecystitis 07/10/2005 11/16/2020 documented as of this encounter (statuses as of 07/04/2021) [facility] of [facility] illness Narrative* Problem Noted Date Resolved Date Leukocytosis 02/13/2018 02/14/2018 Last Assessment & Plan: WBC 17 today (12 on admission) Afebrile, VSS No s/s of infection; no dysuria, cough, fever/chills, rash, diarrhea, negative DVT US LEs Assessment: Possibly 2/2 manipulation of L eye vs steroids PLAN: -Monitor for s/s of infection -Ophthalmology evaluation to r/o endophthalmitis -Trend WBC Acute cholecystitis 07/10/2005 11/16/2020 documented as of this encounter (statuses as of 07/11/2021) [facility] of [facility] Narrative* Problem Noted Date Resolved Date Leukocytosis 02/13/2018 02/14/2018 Last Assessment & Plan: WBC 17 today (12 on admission) Afebrile, VSS No s/s of infection; no dysuria, cough, fever/chills, rash, diarrhea, negative DVT US LEs Assessment: Possibly 2/2 manipulation of L eye vs steroids PLAN: -Monitor for s/s of infection -Ophthalmology evaluation to r/o endophthalmitis -Trend WBC Acute cholecystitis 07/10/2005 11/16/2020 documented as of this encounter (statuses as of 07/25/2021) [facility] of [facility] illness Narrative* Problem Noted Date Resolved Date Leukocytosis 02/13/2018 02/14/2018 Last Assessment & Plan: WBC 17 today (12 on admission) Afebrile, VSS No s/s of infection; no dysuria, cough, fever/chills, rash, diarrhea, negative DVT US LEs Assessment: Possibly 2/2 manipulation of L eye vs steroids PLAN: -Monitor for s/s of infection -Ophthalmology evaluation to r/o endophthalmitis -Trend WBC Acute cholecystitis 07/10/2005 11/16/2020 documented as of this encounter (statuses as of 07/25/2021) [facility] of [facility] illness Narrative* Problem Noted Date Resolved Date Leukocytosis 02/13/2018 02/14/2018 Last Assessment & Plan: WBC 17 today (12 on admission) Afebrile, VSS No s/s of infection; no dysuria, cough, fever/chills, rash, diarrhea, negative DVT US LEs Assessment: Possibly 2/2 manipulation of L eye vs steroids PLAN: -Monitor for s/s of infection -Ophthalmology evaluation to r/o endophthalmitis -Trend WBC Acute cholecystitis 07/10/2005 11/16/2020 documented as of this encounter (statuses as of 07/25/2021) [facility] of Past illness Narrative* Problem Noted Date Resolved Date Leukocytosis 02/13/2018 02/14/2018 Last Assessment & Plan: WBC 17 today (12 on admission) Afebrile, VSS No s/s of infection; no dysuria, cough, fever/chills, rash, diarrhea, negative DVT US LEs Assessment: Possibly 2/2 manipulation of L eye vs steroids PLAN: -Monitor for s/s of infection -Ophthalmology evaluation to r/o endophthalmitis -Trend WBC Acute cholecystitis 07/10/2005 11/16/2020 documented as of this encounter (statuses as of 08/03/2021) [facility] of Past illness Narrative* Problem Noted Date Resolved Date Leukocytosis 02/13/2018 02/14/2018 Last Assessment & Plan: WBC 17 today (12 on admission) Afebrile, VSS No s/s of infection; no dysuria, cough, fever/chills, rash, diarrhea, negative DVT US LEs Assessment: Possibly 2/2 manipulation of L eye vs steroids PLAN: -Monitor for s/s of infection -Ophthalmology evaluation to r/o endophthalmitis -Trend WBC Acute cholecystitis 07/10/2005 11/16/2020 documented as of this encounter (statuses as of 08/09/2021) [facility] of Past illness Narrative* Problem Noted Date Resolved Date Leukocytosis 02/13/2018 02/14/2018 Last Assessment & Plan: WBC 17 today (12 on admission) Afebrile, VSS No s/s of infection; no dysuria, cough, fever/chills, rash, diarrhea, negative DVT US LEs Assessment: Possibly 2/2 manipulation of L eye vs steroids PLAN: -Monitor for s/s of infection -Ophthalmology evaluation to r/o endophthalmitis -Trend WBC Acute cholecystitis 07/10/2005 11/16/2020 documented as of this encounter (statuses as of 08/09/2021) [facility] of [facility] illness Narrative* Problem Noted Date Resolved Date Leukocytosis 02/13/2018 02/14/2018 Last Assessment & Plan: WBC 17 today (12 on admission) Afebrile, VSS No s/s of infection; no dysuria, cough, fever/chills, rash, diarrhea, negative DVT US LEs Assessment: Possibly 2/2 manipulation of L eye vs steroids PLAN: -Monitor for s/s of infection -Ophthalmology evaluation to r/o endophthalmitis -Trend WBC Acute cholecystitis 07/10/2005 11/16/2020 documented as of this encounter (statuses as of 08/11/2021) [facility] Narrative* Problem Noted Date Resolved Date Leukocytosis 02/13/2018 02/14/2018 Last Assessment & Plan: WBC 17 today (12 on admission) Afebrile, VSS No s/s of infection; no dysuria, cough, fever/chills, rash, diarrhea, negative DVT US LEs Assessment: Possibly 2/2 manipulation of L eye vs steroids PLAN: -Monitor for s/s of infection -Ophthalmology evaluation to r/o endophthalmitis -Trend WBC Acute cholecystitis 07/10/2005 11/16/2020 documented as of this encounter (statuses as of 08/15/2021) [facility] of [facility] Narrative* Problem Noted Date Resolved Date Leukocytosis 02/13/2018 02/14/2018 Last Assessment & Plan: WBC 17 today (12 on admission) Afebrile, VSS No s/s of infection; no dysuria, cough, fever/chills, rash, diarrhea, negative DVT US LEs Assessment: Possibly 2/2 manipulation of L eye vs steroids PLAN: -Monitor for s/s of infection -Ophthalmology evaluation to r/o endophthalmitis -Trend WBC Acute cholecystitis 07/10/2005 11/16/2020 documented as of this encounter (statuses as of 08/17/2021) [facility] Narrative* Problem Noted Date Resolved Date Leukocytosis 02/13/2018 02/14/2018 Last Assessment & Plan: WBC 17 today (12 on admission) Afebrile, VSS No s/s of infection; no dysuria, cough, fever/chills, rash, diarrhea, negative DVT US LEs Assessment: Possibly 2/2 manipulation of L eye vs steroids PLAN: -Monitor for s/s of infection -Ophthalmology evaluation to r/o endophthalmitis -Trend WBC Acute cholecystitis 07/10/2005 11/16/2020 documented as of this encounter (statuses as of 08/30/2021) [facility] of [facility] Narrative* Problem Noted Date Resolved Date Leukocytosis 02/13/2018 02/14/2018 Last Assessment & Plan: WBC 17 today (12 on admission) Afebrile, VSS No s/s of infection; no dysuria, cough, fever/chills, rash, diarrhea, negative DVT US LEs Assessment: Possibly 2/2 manipulation of L eye vs steroids PLAN: -Monitor for s/s of infection -Ophthalmology evaluation to r/o endophthalmitis -Trend WBC Acute cholecystitis 07/10/2005 11/16/2020 documented as of this encounter (statuses as of 08/30/2021) [facility] Narrative* Problem Noted Date Resolved Date Leukocytosis 02/13/2018 02/14/2018 Last Assessment & Plan: WBC 17 today (12 on admission) Afebrile, VSS No s/s of infection; no dysuria, cough, fever/chills, rash, diarrhea, negative DVT US LEs Assessment: Possibly 2/2 manipulation of L eye vs steroids PLAN: -Monitor for s/s of infection -Ophthalmology evaluation to r/o endophthalmitis -Trend WBC Acute cholecystitis 07/10/2005 11/16/2020 documented as of this encounter (statuses as of 08/31/2021) [facility] Narrative* Problem Noted Date Resolved Date Leukocytosis 02/13/2018 02/14/2018 Last Assessment & Plan: WBC 17 today (12 on admission) Afebrile, VSS No s/s of infection; no dysuria, cough, fever/chills, rash, diarrhea, negative DVT US LEs Assessment: Possibly 2/2 manipulation of L eye vs steroids PLAN: -Monitor for s/s of infection -Ophthalmology evaluation to r/o endophthalmitis -Trend WBC Acute cholecystitis 07/10/2005 11/16/2020 documented as of this encounter (statuses as of 09/15/2021) [facility] Narrative* Problem Noted Date Resolved Date Leukocytosis 02/13/2018 02/14/2018 Last Assessment & Plan: WBC 17 today (12 on admission) Afebrile, VSS No s/s of infection; no dysuria, cough, fever/chills, rash, diarrhea, negative DVT US LEs Assessment: Possibly 2/2 manipulation of L eye vs steroids PLAN: -Monitor for s/s of infection -Ophthalmology evaluation to r/o endophthalmitis -Trend WBC Acute cholecystitis 07/10/2005 11/16/2020 documented as of this encounter (statuses as of 09/16/2021) [facility] Narrative* Problem Noted Date Resolved Date Leukocytosis 02/13/2018 02/14/2018 Last Assessment & Plan: WBC 17 today (12 on admission) Afebrile, VSS No s/s of infection; no dysuria, cough, fever/chills, rash, diarrhea, negative DVT US LEs Assessment: Possibly 2/2 manipulation of L eye vs steroids PLAN: -Monitor for s/s of infection -Ophthalmology evaluation to r/o endophthalmitis -Trend WBC Acute cholecystitis 07/10/2005 11/16/2020 documented as of this encounter (statuses as of 09/19/2021) [facility] Narrative* Problem Noted Date Resolved Date Leukocytosis 02/13/2018 02/14/2018 Last Assessment & Plan: WBC 17 today (12 on admission) Afebrile, VSS No s/s of infection; no dysuria, cough, fever/chills, rash, diarrhea, negative DVT US LEs Assessment: Possibly 2/2 manipulation of L eye vs steroids PLAN: -Monitor for s/s of infection -Ophthalmology evaluation to r/o endophthalmitis -Trend WBC Acute cholecystitis 07/10/2005 11/16/2020 documented as of this encounter (statuses as of 09/28/2021) [facility] Narrative* Problem Noted Date Resolved Date Leukocytosis 02/13/2018 02/14/2018 Last Assessment & Plan: WBC 17 today (12 on admission) Afebrile, VSS No s/s of infection; no dysuria, cough, fever/chills, rash, diarrhea, negative DVT US LEs Assessment: Possibly 2/2 manipulation of L eye vs steroids PLAN: -Monitor for s/s of infection -Ophthalmology evaluation to r/o endophthalmitis -Trend WBC Acute cholecystitis 07/10/2005 11/16/2020 documented as of this encounter (statuses as of 09/28/2021) [facility] Narrative* Problem Noted Date Resolved Date Leukocytosis 02/13/2018 02/14/2018 Last Assessment & Plan: WBC 17 today (12 on admission) Afebrile, VSS No s/s of infection; no dysuria, cough, fever/chills, rash, diarrhea, negative DVT US LEs Assessment: Possibly 2/2 manipulation of L eye vs steroids PLAN: -Monitor for s/s of infection -Ophthalmology evaluation to r/o endophthalmitis -Trend WBC Acute cholecystitis 07/10/2005 11/16/2020 documented as of this encounter (statuses as of 10/02/2021) [facility] Narrative* Problem Noted Date Resolved Date Leukocytosis 02/13/2018 02/14/2018 Last Assessment & Plan: WBC 17 today (12 on admission) Afebrile, VSS No s/s of infection; no dysuria, cough, fever/chills, rash, diarrhea, negative DVT US LEs Assessment: Possibly 2/2 manipulation of L eye vs steroids PLAN: -Monitor for s/s of infection -Ophthalmology evaluation to r/o endophthalmitis -Trend WBC Acute cholecystitis 07/10/2005 11/16/2020 documented as of this encounter (statuses as of 10/16/2021) [facility]arrative* Problem Noted Date Resolved Date Leukocytosis 02/13/2018 02/14/2018 Last Assessment & Plan: WBC 17 today (12 on admission) Afebrile, VSS No s/s of infection; no dysuria, cough, fever/chills, rash, diarrhea, negative DVT US LEs Assessment: Possibly 2/2 manipulation of L eye vs steroids PLAN: -Monitor for s/s of infection -Ophthalmology evaluation to r/o endophthalmitis -Trend WBC Acute cholecystitis 07/10/2005 11/16/2020 documented as of this encounter (statuses as of 10/31/2021) [facility]arrative* Problem Noted Date Resolved Date Leukocytosis 02/13/2018 02/14/2018 Last Assessment & Plan: WBC 17 today (12 on admission) Afebrile, VSS No s/s of infection; no dysuria, cough, fever/chills, rash, diarrhea, negative DVT US LEs Assessment: Possibly 2/2 manipulation of L eye vs steroids PLAN: -Monitor for s/s of infection -Ophthalmology evaluation to r/o endophthalmitis -Trend WBC Acute cholecystitis 07/10/2005 11/16/2020 documented as of this encounter (statuses as of 11/07/2021) [facility]ative* Problem Noted Date Resolved Date Leukocytosis 02/13/2018 02/14/2018 Last Assessment & Plan: WBC 17 today (12 on admission) Afebrile, VSS No s/s of infection; no dysuria, cough, fever/chills, rash, diarrhea, negative DVT US LEs Assessment: Possibly 2/2 manipulation of L eye vs steroids PLAN: -Monitor for s/s of infection -Ophthalmology evaluation to r/o endophthalmitis -Trend WBC Acute cholecystitis 07/10/2005 11/16/2020 documented as of this encounter (statuses as of 11/16/2021) [facility]* Problem Noted Date Resolved Date Leukocytosis 02/13/2018 02/14/2018 Last Assessment & Plan: WBC 17 today (12 on admission) Afebrile, VSS No s/s of infection; no dysuria, cough, fever/chills, rash, diarrhea, negative DVT US LEs Assessment: Possibly 2/2 manipulation of L eye vs steroids PLAN: -Monitor for s/s of infection -Ophthalmology evaluation to r/o endophthalmitis -Trend WBC Acute cholecystitis 07/10/2005 11/16/2020 documented as of this encounter (statuses as of 11/16/2021) [facility]* Problem Noted Date Resolved Date Leukocytosis 02/13/2018 02/14/2018 Last Assessment & Plan: WBC 17 today (12 on admission) Afebrile, VSS No s/s of infection; no dysuria, cough, fever/chills, rash, diarrhea, negative DVT US LEs Assessment: Possibly 2/2 manipulation of L eye vs steroids PLAN: -Monitor for s/s of infection -Ophthalmology evaluation to r/o endophthalmitis -Trend WBC Acute cholecystitis 07/10/2005 11/16/2020 documented as of this encounter (statuses as of 11/27/2021) [facility]ative* Problem Noted Date Resolved Date Leukocytosis 02/13/2018 02/14/2018 Last Assessment & Plan: WBC 17 today (12 on admission) Afebrile, VSS No s/s of infection; no dysuria, cough, fever/chills, rash, diarrhea, negative DVT US LEs Assessment: Possibly 2/2 manipulation of L eye vs steroids PLAN: -Monitor for s/s of infection -Ophthalmology evaluation to r/o endophthalmitis -Trend WBC Acute cholecystitis 07/10/2005 11/16/2020 documented as of this encounter (statuses as of 11/28/2021) [facility]* Problem Noted Date Resolved Date Leukocytosis 02/13/2018 02/14/2018 Last Assessment & Plan: WBC 17 today (12 on admission) Afebrile, VSS No s/s of infection; no dysuria, cough, fever/chills, rash, diarrhea, negative DVT US LEs Assessment: Possibly 2/2 manipulation of L eye vs steroids PLAN: -Monitor for s/s of infection -Ophthalmology evaluation to r/o endophthalmitis -Trend WBC Acute cholecystitis 07/10/2005 11/16/2020 documented as of this encounter (statuses as of 12/06/2021) [facility]* Problem Noted Date Resolved Date Leukocytosis 02/13/2018 02/14/2018 Last Assessment & Plan: WBC 17 today (12 on admission) Afebrile, VSS No s/s of infection; no dysuria, cough, fever/chills, rash, diarrhea, negative DVT US LEs Assessment: Possibly 2/2 manipulation of L eye vs steroids PLAN: -Monitor for s/s of infection -Ophthalmology evaluation to r/o endophthalmitis -Trend WBC Acute cholecystitis 07/10/2005 11/16/2020 documented as of this encounter (statuses as of 12/11/2021) [facility]arr[facility]* Problem Noted Date Resolved Date Leukocytosis 02/13/2018 02/14/2018 Last Assessment & Plan: WBC 17 today (12 on admission) Afebrile, VSS No s/s of infection; no dysuria, cough, fever/chills, rash, diarrhea, negative DVT US LEs Assessment: Possibly 2/2 manipulation of L eye vs steroids PLAN: -Monitor for s/s of infection -Ophthalmology evaluation to r/o endophthalmitis -Trend WBC Acute cholecystitis 07/10/2005 11/16/2020 documented as of this encounter (statuses as of 12/12/2021) [facility]* Problem Noted Date Resolved Date Leukocytosis 02/13/2018 02/14/2018 Last Assessment & Plan: WBC 17 today (12 on admission) Afebrile, VSS No s/s of infection; no dysuria, cough, fever/chills, rash, diarrhea, negative DVT US LEs Assessment: Possibly 2/2 manipulation of L eye vs steroids PLAN: -Monitor for s/s of infection -Ophthalmology evaluation to r/o endophthalmitis -Trend WBC Acute cholecystitis 07/10/2005 11/16/2020 documented as of this encounter (statuses as of 12/19/2021) [facility] History of Past illness Narrative* Problem Noted Date Resolved Date Leukocytosis 02/13/2018 02/14/2018 Last Assessment & Plan: WBC 17 today (12 on admission) Afebrile, VSS No s/s of infection; no dysuria, cough, fever/chills, rash, diarrhea, negative DVT US LEs Assessment: Possibly 2/2 manipulation of L eye vs steroids PLAN: -Monitor for s/s of infection -Ophthalmology evaluation to r/o endophthalmitis -Trend WBC Acute cholecystitis 07/10/2005 11/16/2020 documented as of this encounter (statuses as of 12/25/2021) [facility] History of Past illness Narrative* Problem Noted Date Resolved Date Leukocytosis 02/13/2018 02/14/2018 Last Assessment & Plan: WBC 17 today (12 on admission) Afebrile, VSS No s/s of infection; no dysuria, cough, fever/chills, rash, diarrhea, negative DVT US LEs Assessment: Possibly 2/2 manipulation of L eye vs steroids PLAN: -Monitor for s/s of infection -Ophthalmology evaluation to r/o endophthalmitis -Trend WBC Acute cholecystitis 07/10/2005 11/16/2020 documented as of this encounter (statuses as of 12/29/2021) [facility] History of Past illness Narrative* Problem Noted Date Resolved Date Leukocytosis 02/13/2018 02/14/2018 Last Assessment & Plan: WBC 17 today (12 on admission) Afebrile, VSS No s/s of infection; no dysuria, cough, fever/chills, rash, diarrhea, negative DVT US LEs Assessment: Possibly 2/2 manipulation of L eye vs steroids PLAN: -Monitor for s/s of infection -Ophthalmology evaluation to r/o endophthalmitis -Trend WBC Acute cholecystitis 07/10/2005 11/16/2020 documented as of this encounter (statuses as of 01/01/2022) [facility] History of Past illness Narrative* Problem Noted Date Resolved Date Leukocytosis 02/13/2018 02/14/2018 Last Assessment & Plan: WBC 17 today (12 on admission) Afebrile, VSS No s/s of infection; no dysuria, cough, fever/chills, rash, diarrhea, negative DVT US LEs Assessment: Possibly 2/2 manipulation of L eye vs steroids PLAN: -Monitor for s/s of infection -Ophthalmology evaluation to r/o endophthalmitis -Trend WBC Acute cholecystitis 07/10/2005 11/16/2020 documented as of this encounter (statuses as of 01/04/2022) [facility] History of Past illness Narrative* Problem Noted Date Resolved Date Leukocytosis 02/13/2018 02/14/2018 Last Assessment & Plan: WBC 17 today (12 on admission) Afebrile, VSS No s/s of infection; no dysuria, cough, fever/chills, rash, diarrhea, negative DVT US LEs Assessment: Possibly 2/2 manipulation of L eye vs steroids PLAN: -Monitor for s/s of infection -Ophthalmology evaluation to r/o endophthalmitis -Trend WBC Acute cholecystitis 07/10/2005 11/16/2020 documented as of this encounter (statuses as of 01/08/2022) [facility] History of Past illness Narrative* Problem Noted Date Resolved Date Leukocytosis 02/13/2018 02/14/2018 Last Assessment & Plan: WBC 17 today (12 on admission) Afebrile, VSS No s/s of infection; no dysuria, cough, fever/chills, rash, diarrhea, negative DVT US LEs Assessment: Possibly 2/2 manipulation of L eye vs steroids PLAN: -Monitor for s/s of infection -Ophthalmology evaluation to r/o endophthalmitis -Trend WBC Acute cholecystitis 07/10/2005 11/16/2020 documented as of this encounter (statuses as of 01/23/2022) [facility] History of Past illness Narrative* Problem Noted Date Resolved Date Leukocytosis 02/13/2018 02/14/2018 Last Assessment & Plan: WBC 17 today (12 on admission) Afebrile, VSS No s/s of infection; no dysuria, cough, fever/chills, rash, diarrhea, negative DVT US LEs Assessment: Possibly 2/2 manipulation of L eye vs steroids PLAN: -Monitor for s/s of infection -Ophthalmology evaluation to r/o endophthalmitis -Trend WBC Acute cholecystitis 07/10/2005 11/16/2020 documented as of this encounter (statuses as of 01/29/2022) [facility] History of Past illness Narrative* Problem Noted Date Resolved Date Leukocytosis 02/13/2018 02/14/2018 Last Assessment & Plan: WBC 17 today (12 on admission) Afebrile, VSS No s/s of infection; no dysuria, cough, fever/chills, rash, diarrhea, negative DVT US LEs Assessment: Possibly 2/2 manipulation of L eye vs steroids PLAN: -Monitor for s/s of infection -Ophthalmology evaluation to r/o endophthalmitis -Trend WBC Acute cholecystitis 07/10/2005 11/16/2020 documented as of this encounter (statuses as of 01/30/2022) [facility] History of Past illness Narrative* Problem Noted Date Resolved Date Leukocytosis 02/13/2018 02/14/2018 Last Assessment & Plan: WBC 17 today (12 on admission) Afebrile, VSS No s/s of infection; no dysuria, cough, fever/chills, rash, diarrhea, negative DVT US LEs Assessment: Possibly 2/2 manipulation of L eye vs steroids PLAN: -Monitor for s/s of infection -Ophthalmology evaluation to r/o endophthalmitis -Trend WBC Acute cholecystitis 07/10/2005 11/16/2020 documented as of this encounter (statuses as of 02/06/2022) [facility] History of Past illness Narrative* Problem Noted Date Resolved Date Leukocytosis 02/13/2018 02/14/2018 Last Assessment & Plan: WBC 17 today (12 on admission) Afebrile, VSS No s/s of infection; no dysuria, cough, fever/chills, rash, diarrhea, negative DVT US LEs Assessment: Possibly 2/2 manipulation of L eye vs steroids PLAN: -Monitor for s/s of infection -Ophthalmology evaluation to r/o endophthalmitis -Trend WBC Acute cholecystitis 07/10/2005 11/16/2020 documented as of this encounter (statuses as of 02/16/2022) [facility] History of Past illness Narrative* Problem Noted Date Resolved Date Leukocytosis 02/13/2018 02/14/2018 Last Assessment & Plan: WBC 17 today (12 on admission) Afebrile, VSS No s/s of infection; no dysuria, cough, fever/chills, rash, diarrhea, negative DVT US LEs Assessment: Possibly 2/2 manipulation of L eye vs steroids PLAN: -Monitor for s/s of infection -Ophthalmology evaluation to r/o endophthalmitis -Trend WBC Acute cholecystitis 07/10/2005 11/16/2020 documented as of this encounter (statuses as of 02/16/2022) [facility] History of Past illness Narrative* Problem Noted Date Resolved Date Leukocytosis 02/13/2018 02/14/2018 Last Assessment & Plan: WBC 17 today (12 on admission) Afebrile, VSS No s/s of infection; no dysuria, cough, fever/chills, rash, diarrhea, negative DVT US LEs Assessment: Possibly 2/2 manipulation of L eye vs steroids PLAN: -Monitor for s/s of infection -Ophthalmology evaluation to r/o endophthalmitis -Trend WBC Acute cholecystitis 07/10/2005 11/16/2020 documented as of this encounter (statuses as of 02/25/2022) [facility] History of Past illness Narrative* Problem Noted Date Resolved Date Leukocytosis 02/13/2018 02/14/2018 Last Assessment & Plan: WBC 17 today (12 on admission) Afebrile, VSS No s/s of infection; no dysuria, cough, fever/chills, rash, diarrhea, negative DVT US LEs Assessment: Possibly 2/2 manipulation of L eye vs steroids PLAN: -Monitor for s/s of infection -Ophthalmology evaluation to r/o endophthalmitis -Trend WBC Acute cholecystitis 07/10/2005 11/16/2020 documented as of this encounter (statuses as of 03/05/2022) [facility] History of Past illness Narrative* Problem Noted Date Resolved Date Leukocytosis 02/13/2018 02/14/2018 Last Assessment & Plan: WBC 17 today (12 on admission) Afebrile, VSS No s/s of infection; no dysuria, cough, fever/chills, rash, diarrhea, negative DVT US LEs Assessment: Possibly 2/2 manipulation of L eye vs steroids PLAN: -Monitor for s/s of infection -Ophthalmology evaluation to r/o endophthalmitis -Trend WBC Acute cholecystitis 07/10/2005 11/16/2020 documented as of this encounter (statuses as of 03/06/2022) [facility] History of Past illness Narrative* Problem Noted Date Resolved Date Leukocytosis 02/13/2018 02/14/2018 Last Assessment & Plan: WBC 17 today (12 on admission) Afebrile, VSS No s/s of infection; no dysuria, cough, fever/chills, rash, diarrhea, negative DVT US LEs Assessment: Possibly 2/2 manipulation of L eye vs steroids PLAN: -Monitor for s/s of infection -Ophthalmology evaluation to r/o endophthalmitis -Trend WBC Acute cholecystitis 07/10/2005 11/16/2020 documented as of this encounter (statuses as of 03/08/2022) [facility] History of Past illness Narrative* Problem Noted Date Resolved Date Leukocytosis 02/13/2018 02/14/2018 Last Assessment & Plan: WBC 17 today (12 on admission) Afebrile, VSS No s/s of infection; no dysuria, cough, fever/chills, rash, diarrhea, negative DVT US LEs Assessment: Possibly 2/2 manipulation of L eye vs steroids PLAN: -Monitor for s/s of infection -Ophthalmology evaluation to r/o endophthalmitis -Trend WBC Acute cholecystitis 07/10/2005 11/16/2020 documented as of this encounter (statuses as of 03/09/2022) [facility] History of Past illness Narrative* Problem Noted Date Resolved Date Leukocytosis 02/13/2018 02/14/2018 Last Assessment & Plan: WBC 17 today (12 on admission) Afebrile, VSS No s/s of infection; no dysuria, cough, fever/chills, rash, diarrhea, negative DVT US LEs Assessment: Possibly 2/2 manipulation of L eye vs steroids PLAN: -Monitor for s/s of infection -Ophthalmology evaluation to r/o endophthalmitis -Trend WBC Acute cholecystitis 07/10/2005 11/16/2020 documented as of this encounter (statuses as of 03/10/2022) [facility] History of Past illness Narrative* Problem Noted Date Resolved Date Leukocytosis 02/13/2018 02/14/2018 Last Assessment & Plan: WBC 17 today (12 on admission) Afebrile, VSS No s/s of infection; no dysuria, cough, fever/chills, rash, diarrhea, negative DVT US LEs Assessment: Possibly 2/2 manipulation of L eye vs steroids PLAN: -Monitor for s/s of infection -Ophthalmology evaluation to r/o endophthalmitis -Trend WBC Acute cholecystitis 07/10/2005 11/16/2020 documented as of this encounter (statuses as of 03/28/2022) [facility] History of Past illness Narrative* Problem Noted Date Resolved Date Leukocytosis 02/13/2018 02/14/2018 Last Assessment & Plan: WBC 17 today (12 on admission) Afebrile, VSS No s/s of infection; no dysuria, cough, fever/chills, rash, diarrhea, negative DVT US LEs Assessment: Possibly 2/2 manipulation of L eye vs steroids PLAN: -Monitor for s/s of infection -Ophthalmology evaluation to r/o endophthalmitis -Trend WBC Acute cholecystitis 07/10/2005 11/16/2020 documented as of this encounter (statuses as of 03/29/2022) [facility] History of Past illness Narrative* Problem Noted Date Resolved Date Leukocytosis 02/13/2018 02/14/2018 Last Assessment & Plan: WBC 17 today (12 on admission) Afebrile, VSS No s/s of infection; no dysuria, cough, fever/chills, rash, diarrhea, negative DVT US LEs Assessment: Possibly 2/2 manipulation of L eye vs steroids PLAN: -Monitor for s/s of infection -Ophthalmology evaluation to r/o endophthalmitis -Trend WBC Acute cholecystitis 07/10/2005 11/16/2020 documented as of this encounter (statuses as of 03/29/2022) [facility] History of Past illness Narrative* Problem Noted Date Resolved Date Leukocytosis 02/13/2018 02/14/2018 Last Assessment & Plan: WBC 17 today (12 on admission) Afebrile, VSS No s/s of infection; no dysuria, cough, fever/chills, rash, diarrhea, negative DVT US LEs Assessment: Possibly 2/2 manipulation of L eye vs steroids PLAN: -Monitor for s/s of infection -Ophthalmology evaluation to r/o endophthalmitis -Trend WBC Acute cholecystitis 07/10/2005 11/16/2020 documented as of this encounter (statuses as of 04/02/2022) [facility] History of Past illness Narrative* Problem Noted Date Resolved Date Leukocytosis 02/13/2018 02/14/2018 Last Assessment & Plan: WBC 17 today (12 on admission) Afebrile, VSS No s/s of infection; no dysuria, cough, fever/chills, rash, diarrhea, negative DVT US LEs Assessment: Possibly 2/2 manipulation of L eye vs steroids PLAN: -Monitor for s/s of infection -Ophthalmology evaluation to r/o endophthalmitis -Trend WBC Acute cholecystitis 07/10/2005 11/16/2020 documented as of this encounter (statuses as of 04/12/2022) [facility] History of Past illness Narrative* Problem Noted Date Resolved Date Leukocytosis 02/13/2018 02/14/2018 Last Assessment & Plan: WBC 17 today (12 on admission) Afebrile, VSS No s/s of infection; no dysuria, cough, fever/chills, rash, diarrhea, negative DVT US LEs Assessment: Possibly 2/2 manipulation of L eye vs steroids PLAN: -Monitor for s/s of infection -Ophthalmology evaluation to r/o endophthalmitis -Trend WBC Acute cholecystitis 07/10/2005 11/16/2020 documented as of this encounter (statuses as of 04/26/2022) [facility] of Past illness Narrative* Problem Noted Date Resolved Date Leukocytosis 02/13/2018 02/14/2018 Last Assessment & Plan: WBC 17 today (12 on admission) Afebrile, VSS No s/s of infection; no dysuria, cough, fever/chills, rash, diarrhea, negative DVT US LEs Assessment: Possibly 2/2 manipulation of L eye vs steroids PLAN: -Monitor for s/s of infection -Ophthalmology evaluation to r/o endophthalmitis -Trend WBC Acute cholecystitis 07/10/2005 11/16/2020 documented as of this encounter (statuses as of 05/10/2022) [place] [address]-20-2018 History of Past illness Narrative* Problem Noted Date Resolved Date Leukocytosis 02/13/2018 02/14/2018 Last Assessment & Plan: WBC 17 today (12 on admission) Afebrile, VSS No s/s of infection; no dysuria, cough, fever/chills, rash, diarrhea, negative DVT US LEs Assessment: Possibly 2/2 manipulation of L eye vs steroids PLAN: -Monitor for s/s of infection -Ophthalmology evaluation to r/o endophthalmitis -Trend WBC Acute cholecystitis 07/10/2005 11/16/2020 documented as of this encounter (statuses as of 05/10/2022) [facility] of Past illness Narrative* Problem Noted Date Resolved Date Leukocytosis 02/13/2018 02/14/2018 Last Assessment & Plan: WBC 17 today (12 on admission) Afebrile, VSS No s/s of infection; no dysuria, cough, fever/chills, rash, diarrhea, negative DVT US LEs Assessment: Possibly 2/2 manipulation of L eye vs steroids PLAN: -Monitor for s/s of infection -Ophthalmology evaluation to r/o endophthalmitis -Trend WBC Acute cholecystitis 07/10/2005 11/16/2020 documented as of this encounter (statuses as of 05/10/2022) [facility] Past illness Narrative* Problem Noted Date Resolved Date Leukocytosis 02/13/2018 02/14/2018 Last Assessment & Plan: WBC 17 today (12 on admission) Afebrile, VSS No s/s of infection; no dysuria, cough, fever/chills, rash, diarrhea, negative DVT US LEs Assessment: Possibly 2/2 manipulation of L eye vs steroids PLAN: -Monitor for s/s of infection -Ophthalmology evaluation to r/o endophthalmitis -Trend WBC Acute cholecystitis 07/10/2005 11/16/2020 documented as of this encounter (statuses as of 05/23/2022) [facility] Past [facility] Narrative* Problem Noted Date Resolved Date Leukocytosis 02/13/2018 02/14/2018 Last Assessment & Plan: WBC 17 today (12 on admission) Afebrile, VSS No s/s of infection; no dysuria, cough, fever/chills, rash, diarrhea, negative DVT US LEs Assessment: Possibly 2/2 manipulation of L eye vs steroids PLAN: -Monitor for s/s of infection -Ophthalmology evaluation to r/o endophthalmitis -Trend WBC Acute cholecystitis 07/10/2005 11/16/2020 documented as of this encounter (statuses as of 05/24/2022) [facility] Narrative* Problem Noted Date Resolved Date Leukocytosis 02/13/2018 02/14/2018 Last Assessment & Plan: WBC 17 today (12 on admission) Afebrile, VSS No s/s of infection; no dysuria, cough, fever/chills, rash, diarrhea, negative DVT US LEs Assessment: Possibly 2/2 manipulation of L eye vs steroids PLAN: -Monitor for s/s of infection -Ophthalmology evaluation to r/o endophthalmitis -Trend WBC Acute cholecystitis 07/10/2005 11/16/2020 documented as of this encounter (statuses as of 06/06/2022) [facility] Narrative* Problem Noted Date Resolved Date Leukocytosis 02/13/2018 02/14/2018 Last Assessment & Plan: WBC 17 today (12 on admission) Afebrile, VSS No s/s of infection; no dysuria, cough, fever/chills, rash, diarrhea, negative DVT US LEs Assessment: Possibly 2/2 manipulation of L eye vs steroids PLAN: -Monitor for s/s of infection -Ophthalmology evaluation to r/o endophthalmitis -Trend WBC Acute cholecystitis 07/10/2005 11/16/2020 documented as of this encounter (statuses as of 06/20/2022) [facility] Narrative* Problem Noted Date Resolved Date Leukocytosis 02/13/2018 02/14/2018 Last Assessment & Plan: WBC 17 today (12 on admission) Afebrile, VSS No s/s of infection; no dysuria, cough, fever/chills, rash, diarrhea, negative DVT US LEs Assessment: Possibly 2/2 manipulation of L eye vs steroids PLAN: -Monitor for s/s of infection -Ophthalmology evaluation to r/o endophthalmitis -Trend WBC Acute cholecystitis 07/10/2005 11/16/2020 documented as of this encounter (statuses as of 06/21/2022) [facility] Narrative* Problem Noted Date Resolved Date Leukocytosis 02/13/2018 02/14/2018 Last Assessment & Plan: WBC 17 today (12 on admission) Afebrile, VSS No s/s of infection; no dysuria, cough, fever/chills, rash, diarrhea, negative DVT US LEs Assessment: Possibly 2/2 manipulation of L eye vs steroids PLAN: -Monitor for s/s of infection -Ophthalmology evaluation to r/o endophthalmitis -Trend WBC Acute cholecystitis 07/10/2005 11/16/2020 documented as of this encounter (statuses as of 06/22/2022) [facility] Narrative* Problem Noted Date Resolved Date Leukocytosis 02/13/2018 02/14/2018 Last Assessment & Plan: WBC 17 today (12 on admission) Afebrile, VSS No s/s of infection; no dysuria, cough, fever/chills, rash, diarrhea, negative DVT US LEs Assessment: Possibly 2/2 manipulation of L eye vs steroids PLAN: -Monitor for s/s of infection -Ophthalmology evaluation to r/o endophthalmitis -Trend WBC Acute cholecystitis 07/10/2005 11/16/2020 documented as of this encounter (statuses as of 07/06/2022) [facility] Narrative* Problem Noted Date Resolved Date Leukocytosis 02/13/2018 02/14/2018 Last Assessment & Plan: WBC 17 today (12 on admission) Afebrile, VSS No s/s of infection; no dysuria, cough, fever/chills, rash, diarrhea, negative DVT US LEs Assessment: Possibly 2/2 manipulation of L eye vs steroids PLAN: -Monitor for s/s of infection -Ophthalmology evaluation to r/o endophthalmitis -Trend WBC Acute cholecystitis 07/10/2005 11/16/2020 documented as of this encounter (statuses as of 07/23/2022) [facility] Narrative* Problem Noted Date Resolved Date Leukocytosis 02/13/2018 02/14/2018 Last Assessment & Plan: WBC 17 today (12 on admission) Afebrile, VSS No s/s of infection; no dysuria, cough, fever/chills, rash, diarrhea, negative DVT US LEs Assessment: Possibly 2/2 manipulation of L eye vs steroids PLAN: -Monitor for s/s of infection -Ophthalmology evaluation to r/o endophthalmitis -Trend WBC Acute cholecystitis 07/10/2005 11/16/2020 documented as of this encounter (statuses as of 08/01/2022) [facility] Narrative* Problem Noted Date Resolved Date Leukocytosis 02/13/2018 02/14/2018 Last Assessment & Plan: WBC 17 today (12 on admission) Afebrile, VSS No s/s of infection; no dysuria, cough, fever/chills, rash, diarrhea, negative DVT US LEs Assessment: Possibly 2/2 manipulation of L eye vs steroids PLAN: -Monitor for s/s of infection -Ophthalmology evaluation to r/o endophthalmitis -Trend WBC Acute cholecystitis 07/10/2005 11/16/2020 documented as of this encounter (statuses as of 08/23/2022) [facility] Narrative* Problem Noted Date Resolved Date Leukocytosis 02/13/2018 02/14/2018 Last Assessment & Plan: WBC 17 today (12 on admission) Afebrile, VSS No s/s of infection; no dysuria, cough, fever/chills, rash, diarrhea, negative DVT US LEs Assessment: Possibly 2/2 manipulation of L eye vs steroids PLAN: -Monitor for s/s of infection -Ophthalmology evaluation to r/o endophthalmitis -Trend WBC Acute cholecystitis 07/10/2005 11/16/2020 documented as of this encounter (statuses as of 08/25/2022) [facility] Narrative* Problem Noted Date Diagnosed Date Resolved Date Leukocytosis 02/13/2018 02/14/2018 Last Assessment & Plan: WBC 17 today (12 on admission) Afebrile, VSS No s/s of infection; no dysuria, cough, fever/chills, rash, diarrhea, negative DVT US LEs Assessment: Possibly 2/2 manipulation of L eye vs steroids PLAN: -Monitor for s/s of infection -Ophthalmology evaluation to r/o endophthalmitis -Trend WBC Acute cholecystitis 07/10/2005 11/17/19 21 documented as of this encounter (statuses as of 09/12/2022) [facility]* Problem Noted Date Diagnosed Date Resolved Date Leukocytosis 02/13/2018 02/14/2018 Last Assessment & Plan: WBC 17 today (12 on admission) Afebrile, VSS No s/s of infection; no dysuria, cough, fever/chills, rash, diarrhea, negative DVT US LEs Assessment: Possibly 2/2 manipulation of L eye vs steroids PLAN: -Monitor for s/s of infection -Ophthalmology evaluation to r/o endophthalmitis -Trend WBC Acute cholecystitis 07/10/2005 11/17/19 21 documented as of this encounter (statuses as of 09/25/2022) [facility] Narrative* Problem Noted Date Diagnosed Date Resolved Date Leukocytosis 02/13/2018 02/14/2018 Last Assessment & Plan: WBC 17 today (12 on admission) Afebrile, VSS No s/s of infection; no dysuria, cough, fever/chills, rash, diarrhea, negative DVT US LEs Assessment: Possibly 2/2 manipulation of L eye vs steroids PLAN: -Monitor for s/s of infection -Ophthalmology evaluation to r/o endophthalmitis -Trend WBC Acute cholecystitis 07/10/2005 11/17/19 21 documented as of this encounter (statuses as of 09/25/2022) [facility]arrative* Problem Noted Date Diagnosed Date Resolved Date Leukocytosis 02/13/2018 02/14/2018 Last Assessment & Plan: WBC 17 today (12 on admission) Afebrile, VSS No s/s of infection; no dysuria, cough, fever/chills, rash, diarrhea, negative DVT US LEs Assessment: Possibly 2/2 manipulation of L eye vs steroids PLAN: -Monitor for s/s of infection -Ophthalmology evaluation to r/o endophthalmitis -Trend WBC Acute cholecystitis 07/10/2005 11/17/19 21 documented as of this encounter (statuses as of 10/08/2022) [facility]* Problem Noted Date Diagnosed Date Resolved Date Leukocytosis 02/13/2018 02/14/2018 Last Assessment & Plan: WBC 17 today (12 on admission) Afebrile, VSS No s/s of infection; no dysuria, cough, fever/chills, rash, diarrhea, negative DVT US LEs Assessment: Possibly 2/2 manipulation of L eye vs steroids PLAN: -Monitor for s/s of infection -Ophthalmology evaluation to r/o endophthalmitis -Trend WBC Acute cholecystitis 07/10/2005 11/17/19 21 documented as of this encounter (statuses as of 10/23/2022) [facility] History of Past illness Narrative* Problem Noted Date Diagnosed Date Resolved Date Leukocytosis 02/13/2018 02/14/2018 Last Assessment & Plan: WBC 17 today (12 on admission) Afebrile, VSS No s/s of infection; no dysuria, cough, fever/chills, rash, diarrhea, negative DVT US LEs Assessment: Possibly 2/2 manipulation of L eye vs steroids PLAN: -Monitor for s/s of infection -Ophthalmology evaluation to r/o endophthalmitis -Trend WBC Acute cholecystitis 07/10/2005 11/17/19 21 documented as of this encounter (statuses as of 10/31/2022) [facility] History of Past illness Narrative* Problem Noted Date Diagnosed Date Resolved Date Leukocytosis 02/13/2018 02/14/2018 Last Assessment & Plan: WBC 17 today (12 on admission) Afebrile, VSS No s/s of infection; no dysuria, cough, fever/chills, rash, diarrhea, negative DVT US LEs Assessment: Possibly 2/2 manipulation of L eye vs steroids PLAN: -Monitor for s/s of infection -Ophthalmology evaluation to r/o endophthalmitis -Trend WBC Acute cholecystitis 07/10/2005 11/17/19 21 documented as of this encounter (statuses as of 11/01/2022) [facility] History of Past illness Narrative* Problem Noted Date Diagnosed Date Resolved Date Leukocytosis 02/13/2018 02/14/2018 Last Assessment & Plan: WBC 17 today (12 on admission) Afebrile, VSS No s/s of infection; no dysuria, cough, fever/chills, rash, diarrhea, negative DVT US LEs Assessment: Possibly 2/2 manipulation of L eye vs steroids PLAN: -Monitor for s/s of infection -Ophthalmology evaluation to r/o endophthalmitis -Trend WBC Acute cholecystitis 07/10/2005 11/17/19 21 documented as of this encounter (statuses as of 12/20/2022) [facility] History of Past illness Narrative* Problem Noted Date Diagnosed Date Resolved Date Leukocytosis 02/13/2018 02/14/2018 Last Assessment & Plan: WBC 17 today (12 on admission) Afebrile, VSS No s/s of infection; no dysuria, cough, fever/chills, rash, diarrhea, negative DVT US LEs Assessment: Possibly 2/2 manipulation of L eye vs steroids PLAN: -Monitor for s/s of infection -Ophthalmology evaluation to r/o endophthalmitis -Trend WBC Acute cholecystitis 07/10/2005 11/17/19 21 documented as of this encounter (statuses as of 12/24/2022) [facility] History of Past illness Narrative* Problem Noted Date Diagnosed Date Resolved Date Leukocytosis 02/13/2018 02/14/2018 Last Assessment & Plan: WBC 17 today (12 on admission) Afebrile, VSS No s/s of infection; no dysuria, cough, fever/chills, rash, diarrhea, negative DVT US LEs Assessment: Possibly 2/2 manipulation of L eye vs steroids PLAN: -Monitor for s/s of infection -Ophthalmology evaluation to r/o endophthalmitis -Trend WBC Acute cholecystitis 07/10/2005 11/17/19 21 documented as of this encounter (statuses as of 12/30/2022) [facility] History of Past illness Narrative* Problem Noted Date Diagnosed Date Resolved Date Leukocytosis 02/13/2018 02/14/2018 Last Assessment & Plan: WBC 17 today (12 on admission) Afebrile, VSS No s/s of infection; no dysuria, cough, fever/chills, rash, diarrhea, negative DVT US LEs Assessment: Possibly 2/2 manipulation of L eye vs steroids PLAN: -Monitor for s/s of infection -Ophthalmology evaluation to r/o endophthalmitis -Trend WBC Acute cholecystitis 07/10/2005 11/17/19 21 documented as of this encounter (statuses as of 01/10/2023) [facility] History of Past illness Narrative* Problem Noted Date Diagnosed Date Resolved Date Leukocytosis 02/13/2018 02/14/2018 Last Assessment & Plan: WBC 17 today (12 on admission) Afebrile, VSS No s/s of infection; no dysuria, cough, fever/chills, rash, diarrhea, negative DVT US LEs Assessment: Possibly 2/2 manipulation of L eye vs steroids PLAN: -Monitor for s/s of infection -Ophthalmology evaluation to r/o endophthalmitis -Trend WBC Acute cholecystitis 07/10/2005 11/17/19 21 documented as of this encounter (statuses as of 01/10/2023) [facility] History of Past illness Narrative* Problem Noted Date Diagnosed Date Resolved Date Leukocytosis 02/13/2018 02/14/2018 Last Assessment & Plan: WBC 17 today (12 on admission) Afebrile, VSS No s/s of infection; no dysuria, cough, fever/chills, rash, diarrhea, negative DVT US LEs Assessment: Possibly 2/2 manipulation of L eye vs steroids PLAN: -Monitor for s/s of infection -Ophthalmology evaluation to r/o endophthalmitis -Trend WBC Acute cholecystitis 07/10/2005 11/17/19 21 documented as of this encounter (statuses as of 02/14/2023) [facility] noteThere may be information available, but it has not been provided by the sender.[facility] Work Phone: Evaluation note* Diagnosis Encounter for screening mammogram for breast cancer [facility] Diagnosis 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 Long-term (current) use of anticoagulants TIA (transient ischemic attack) Unspecified transient cerebral ischemia Factor 5 Leiden mutation, heterozygous (HCC) Primary hypercoagulable state Anti-cardiolipin antibody positive Other and unspecified nonspecific immunological findings Ischemic stroke of frontal lobe (HCC) [facility] Diagnosis Vasculopathy Unspecified circulatory system disorder [facility] Diagnosis Cerebral vascular disorder Cerebrovascular disease, unspecified [facility] Diagnosis residential (current) use of anticoagulants- Primary Long-term (current) use of anticoagulants TIA (transient ischemic attack) Unspecified transient cerebral ischemia Factor 5 Leiden mutation, heterozygous (HCC) Primary hypercoagulable state Anti-cardiolipin antibody positive Other and unspecified nonspecific immunological findings Ischemic stroke of frontal lobe (HCC) [facility]* Diagnosis Reflex sympathetic dystrophy of right lower extremity- Primary Reflex sympathetic dystrophy of the lower limb [facility] Diagnosis Mixed hyperlipidemia [facility] Diagnosis Need for vaccination- Primary Need for prophylactic vaccination and inoculation against unspecified single disease [facility] Diagnosis Complex regional pain syndrome type 1 of right lower extremity- Primary [facility]* Diagnosis Cerebral vascular disorder Cerebrovascular disease, unspecified [facility]* Diagnosis Reflex sympathetic dystrophy of right lower extremity Reflex sympathetic dystrophy of the lower limb [facility] Diagnosis Complex regional pain syndrome type 1 of right lower extremity- Primary Primary osteoarthritis of both knees Primary localized osteoarthrosis, lower leg Plantar fasciitis Plantar fascial fibromatosis [facility] Diagnosis Cerebral vascular disorder- Primary Cerebrovascular disease, unspecified High risk medication use Encounter for long-term (current) use of other medications Serologic abnormality Other and unspecified nonspecific immunological findings Raynaud's disease without gangrene Livedo reticularis Pallor [facility]* Diagnosis Reflex sympathetic dystrophy of right lower extremity Reflex sympathetic dystrophy of the lower limb [facility] Diagnosis Muscle spasm- Primary Spasm of muscle Muscle strain Unspecified site of sprain and strain Anticoagulated on Coumadin Encounter for therapeutic drug monitoring [facility] Diagnosis 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 Arteritis, unspecified LINA (obstructive sleep apnea) Obstructive sleep apnea (adult) (pediatric) Benign paroxysmal positional vertigo of left ear Factor 5 Leiden mutation, heterozygous (HCC) Primary hypercoagulable state Lupus anticoagulant positive Other and unspecified nonspecific immunological findings Stenosis of right internal carotid artery [facility] Diagnosis Complex regional pain syndrome type 1 of right lower extremity [facility]* Diagnosis Reflex sympathetic dystrophy of right lower extremity Reflex sympathetic dystrophy of the lower limb [facility]* Diagnosis Cerebral vascular disorder Cerebrovascular disease, unspecified [facility]* Diagnosis Complex regional pain syndrome type 1 of right lower extremity- Primary Primary osteoarthritis of both knees Primary localized osteoarthrosis, lower leg Plantar fasciitis Plantar fascial fibromatosis [facility] Diagnosis Complex regional pain syndrome type 1 of right lower extremity Reflex sympathetic dystrophy of right lower extremity Reflex sympathetic dystrophy of the lower limb [facility] Diagnosis Complex regional pain syndrome type 1 of right lower extremity- Primary Primary osteoarthritis of both knees Primary localized osteoarthrosis, lower leg Plantar fasciitis Plantar fascial fibromatosis residential (current) use of opiate analgesic [facility] Diagnosis Acute cough- Primary Acute URI Acute upper respiratory infections of unspecified site [facility]* Diagnosis Acute cough- Primary Acute URI Acute upper respiratory infections of unspecified site [facility]* Diagnosis residential (current) use of anticoagulants- Primary Long-term (current) use of anticoagulants TIA (transient ischemic attack) Unspecified transient cerebral ischemia Factor 5 Leiden mutation, heterozygous (HCC) Primary hypercoagulable state Anti-cardiolipin antibody positive Other and unspecified nonspecific immunological findings Ischemic stroke of frontal lobe (HCC) [facility]* Diagnosis Complex regional pain syndrome type 1 of right lower extremity- Primary Primary osteoarthritis of both knees Primary localized osteoarthrosis, lower leg Plantar fasciitis Plantar fascial fibromatosis [facility] Diagnosis Reflex sympathetic dystrophy of right lower extremity Reflex sympathetic dystrophy of the lower limb Complex regional pain syndrome type 1 of right lower extremity [facility]* Diagnosis residential (current) use of opiate analgesic- Primary [facility]* Diagnosis Cerebral vascular disorder Cerebrovascular disease, unspecified [facility]* Diagnosis Reflex sympathetic dystrophy of right lower extremity Reflex sympathetic dystrophy of the lower limb Complex regional pain syndrome type 1 of right lower extremity [facility]* Diagnosis Chronic pain syndrome- Primary Complex regional pain syndrome type 1 of right lower extremity Primary osteoarthritis of both knees Primary localized osteoarthrosis, lower leg Plantar fasciitis Plantar fascial fibromatosis [facility] Diagnosis residential (current) use of anticoagulants- Primary Long-term (current) use of anticoagulants TIA (transient ischemic attack) Unspecified transient cerebral ischemia Factor 5 Leiden mutation, heterozygous (HCC) Primary hypercoagulable state Anti-cardiolipin antibody positive Other and unspecified nonspecific immunological findings Ischemic stroke of frontal lobe (HCC) [facility] Diagnosis 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 Long-term (current) use of anticoagulants TIA (transient ischemic attack) Unspecified transient cerebral ischemia Factor 5 Leiden mutation, heterozygous (HCC) Primary hypercoagulable state Anti-cardiolipin antibody positive Other and unspecified nonspecific immunological findings Ischemic stroke of frontal lobe (HCC) [facility]* Diagnosis Acute cough- Primary Acute URI Acute upper respiratory infections of unspecified site Wheezing [facility]* Diagnosis Chronic pain syndrome- Primary Complex regional pain syndrome type 1 of right lower extremity Primary osteoarthritis of both knees Primary localized osteoarthrosis, lower leg Plantar fasciitis Plantar fascial fibromatosis [facility] this encounter [facility]* Diagnosis Cerebral vascular disorder Cerebrovascular disease, unspecified [facility]* Diagnosis Encounter for screening mammogram for breast cancer documented [facility]* Diagnosis Other fatigue- Primary Dysthymic disorder Elevated glucose Other abnormal glucose [facility]* Diagnosis Chronic pain syndrome- Primary Complex regional pain syndrome type 1 of right lower extremity Primary osteoarthritis of both knees Primary localized osteoarthrosis, lower leg Plantar fasciitis Plantar fascial fibromatosis documented [facility] this encounter [facility]* Diagnosis Reflex sympathetic dystrophy of right lower extremity Reflex sympathetic dystrophy of the lower limb Complex regional pain syndrome type 1 of right lower extremity [facility]* Diagnosis Dysthymic disorder- Primary documented in this encounter [facility]* Diagnosis residential (current) use of anticoagulants- Primary Long-term (current) use of anticoagulants Ischemic stroke of frontal lobe (HCC) TIA (transient ischemic attack) Unspecified transient cerebral ischemia Factor 5 Leiden mutation, heterozygous (HCC) Primary hypercoagulable state Anti-cardiolipin antibody positive Other and unspecified nonspecific immunological findings documented [facility] this [facility]* Diagnosis Complex regional pain syndrome type 1 of right lower extremity Reflex sympathetic dystrophy of right lower extremity Reflex sympathetic dystrophy of the lower limb documented in this encounter [facility]* Diagnosis Encounter for screening mammogram for breast cancer documented [facility]* Diagnosis Chronic pain syndrome- Primary Complex regional pain syndrome type 1 of right lower extremity Primary osteoarthritis of both knees Primary localized osteoarthrosis, lower leg Plantar fasciitis Plantar fascial fibromatosis documented [facility] this encounter [facility]* Diagnosis Complex regional pain syndrome type 1 of right lower extremity- Primary Reflex sympathetic dystrophy of right lower extremity Reflex sympathetic dystrophy of the lower limb [facility]* Diagnosis Reflex sympathetic dystrophy of right lower extremity Reflex sympathetic dystrophy of the lower limb Complex regional pain syndrome type 1 of right lower extremity [facility]* Instruction Description Start Date CompletedPatient advised to follow-up with Primary Care Physician for BMI management. [facility] Work Phone: Reason for referral (narrative)* Diagnostic Procedure Only (Routine) - Closed Specialty Diagnoses / Procedures Referred By Malika montano Referred To Contact [facility] Diagnoses Encounter for screening mammogram for breast cancer Procedures DARWIN SCREENING SCREENING MAMMOGRAPHY BI 2-VIEW BREAST INC Anuj Borja MD [address] [place] [address] [facility] [address] [place] [address] Referral ID Status Reason Start Date Expiration Date V isits Requested Visits Authorized [id number] Closed Auto-Generate d Referral 04/19/2021 05/19/2022 1 1 [facility] for referral (narrative)* Outpatient Procedure (Routine) - Pending Review Specialty Diagnoses / Procedures Referred By Malika montano [facility] Diagnoses residential (current) use of opiate analgesic Procedures ECG COMPLETE ECG ROUTINE ECG W/LEAST 12 LDS W/I&R Adama Diallo MD [address] [place] [address] [facility] [place] [address] [place] [address] Referral ID Status Reason Start Date Expiration Date Visits Requested Visits Authorized [id number] Pending Review Auto-Generat ed Referral 04/02/2022 04/02/2023 1 1 [facility] for referral (narrative)* Diagnostic Procedure Only (Routine) - Pending Review Specialty Diagnoses / Procedures Referred By Malika montano Referred To Contact [facility] Diagnoses Encounter for screening mammogram for breast cancer Procedures DARWIN SCREENING SCREENING MAMMOGRAPHY BI 2-VIEW BREAST INC Anuj Borja MD [address] [place] [address] [facility] [address] [place] [address] Referral ID Status Reason Start Date Expiration Date Visits Requested Visits Authorized [id number] Pending Review Auto-Generat ed Referral 07/18/2022 08/17/2023 1 1 [facility] for referral (narrative)* Diagnostic Procedure Only (Routine) - Closed Specialty Diagnoses / Procedures Referred By Contac t Referred To Contact [facility] Diagnoses Encounter for screening mammogram for breast cancer Procedures DARWIN SCREENING SCREENING MAMMOGRAPHY BI 2-VIEW BREAST INC Anuj Borja MD [address] [place] [address] [facility] [address] [place] [address] Referral ID Status Reason Start Date Expiration Date V isits Requested Visits Authorized [id number] Closed Auto-Generate d Referral 07/18/2022 08/17/2023 1 1 [facility] for visit Narrative* Diagnostic Procedure Only (Routine) - Closed Specialty Diagnoses / Procedures Referred By Contac t Referred To Contact [facility] Diagnoses Encounter for screening mammogram for breast cancer Procedures DARWIN SCREENING SCREENING MAMMOGRAPHY BI 2-VIEW BREAST INC Anuj Borja MD [address] [place] [address] [facility] [address] [place] [address] Referral ID Status Reason Start Date Expiration Date V isits Requested Visits Authorized [id number] Closed Auto-Generate d Referral 04/19/2021 05/19/2022 1 1 [facility] for visit Narrative* Diagnostic Procedure Only (Routine) - Closed Specialty Diagnoses / Procedures Referred By Contac t Referred To Contact [facility] Diagnoses Encounter for screening mammogram for breast cancer Procedures DARWIN SCREENING SCREENING MAMMOGRAPHY BI 2-VIEW BREAST INC Anuj Borja MD [address] [place] [address] [facility] [address] [place] [address] Referral ID Status Reason Start Date Expiration Date V isits Requested Visits Authorized [id number] Closed Auto-Generate d Referral 07/18/2022 08/17/2023 1 1 [facility] Summary Purpose Family History No Family History Records FoundNo Family History Records FoundNo Family History Records FoundThere may be information available, but it has not been provided by the sender.No Family History Records FoundNo Family History Records Found Advance Directives No Advanced Directives Records FoundDocuments on File Type Date Recorded Patient Technology Infusion Specialist Expl anation ACP-Advance Directive ACP-Power of Title Attorney Latest Code Status on File Code Status Date Activated Date Inactivated Comments Full Code 10/01/2017 12:11 PM 10/01/2017 9:22 PM Full Code 09/30/2017 10:21 PM 10/01/2017 12:08 PM Full Code 09/30/2017 10:07 PM 09/30/2017 10:21 PM Full Code 09/30/2017 8:40 PM 09/30/2017 10:07 PM Documents on File Type Date Recorded Patient Technology Infusion Specialist Expl anation Advance Directive(s) Advance Directive(s) 03/27/2019 3:04 PM Advance Directive(s) 03/25/2019 4:33 PM Advance Directive(s) 08/27/2018 11:14 AM Sd anned 08-27-2018 Advance Directive(s) 08/27/2018 11:09 AM Advance Directive(s) 01/10/2018 10:17 AM Documents on File Type Date Recorded Patient Technology Infusion Specialist Expl anation Advance Directive(s) Advance Directive(s) 03/27/2019 3:04 PM Advance Directive(s) 03/25/2019 4:33 PM Advance Directive(s) 08/27/2018 11:14 AM Sd anned 08-27-2018 Advance Directive(s) 08/27/2018 11:09 AM Advance Directive(s) 01/10/2018 10:17 AM Documents on File Type Date Recorded Patient Technology Infusion Specialist Expl anation Advance Directive(s) 08/27/2018 11:09 AM Documents on File Type Date Recorded Patient Technology Infusion Specialist Expl anation Advance Directive(s) 08/27/2018 11:09 AM Chief Complaint Chief Complaint Description Start Date right shoulder post right sh oulder arthroscopic rotator cuff repair with Rotium augmentation extensive glenohumeral debridement biceps tenodesis subscapularis repair subacromial decompression on 12/07/2020 Preliminary chief co mplaint data, not yet signed by the author as of Reason for Referral Specialty Diagnoses / Procedures Referred By Contac t Referred To Contact CT IMAGING Diagnoses Vasculopathy Procedures CTA NECK W IVCON CT ANGIOGRAPHY NECK W/CONTRAST/NONCONTRAST Daksha Reed MD [address] [place] [address] Ct Imaging Referral ID Status Reason Start Date Expiration Date V isits Requested Visits Authorized [id number] Closed Auto-Generate d Referral 06/16/2021 07/16/2021 1 1 Specialty Diagnoses / Procedures Referred By Contac t Referred To Contact CT IMAGING Diagnoses Vasculopathy Procedures CTA HEAD WO/W IVCON CT ANGIOGRAPHY HEAD W/CONTRAST/NONCONTRAST Daksha Reed MD [address] [facility] [address] Ct Imaging Referral ID Status Reason Start Date Expiration Date V isits Requested Visits Authorized [id number] Closed Auto-Generate d Referral 06/16/2021 07/16/2021 1 1 Specialty Diagnoses / Procedures Referred By Contac t Referred To Contact Diagnoses Reflex sympathetic dystrophy of right lower extremity Cristofer Sparks PA-C [address] [place] [address] Referral ID Status Reason Start Date Expiration Date V isits Requested Visits Authorized [id number] Pending Review 1 1 Specialty Diagnoses / Procedures Referred By Contac t Referred To Contact Diagnoses Complex regional pain syndrome type 1 of right lower extremity Cristofer Sparks PA-C [address] [place] [address] Referral ID Status Reason Start Date Expiration Date Visits Re quested Visits Authorized [id number] Closed 1 1 Specialty Diagnoses / Procedures Referred By Contac t Referred To Contact Diagnoses LINA (obstructive sleep apnea) Procedures CONSULT TO SLEEP MEDICINE - ADULT OFFICE/OUTPATIENT [facility] 60-74 MINUTES Sourav Kirk DO [address] [place] [address] Referral ID Status Reason Start Date Expiration Date Visits Requested Visits Authorized [id number] Authorized PCP Requested Referral 11/16/2021 11/16/2022 1 1 Referral ID Status Reason Start Date Expiration Date Visits Re quested Visits Authorized [id number] Closed 1 1 Referral ID Status Reason Start Date Expiration Date V isits Requested Visits Authorized [id number] Pending Review 1 1 Additional Source Comments INFORMATION SOURCE (unrecogn ized section and content) DATE CREATED AUTHOR AUTHOR'S ORGANIZ ATION 07/30/2019 [facility] DATE CREATED AUTHOR AUTHOR'S ORGANIZ ATION 09/14/2020 [facility] DATE CREATED AUTHOR AUTHOR'S ORGANIZ ATION 03/10/2023 [facility] DATE CREATED AUTHOR AUTHOR'S ORGANIZ ATION 03/27/2023 [facility] Reason for Visit (unrecogniz ed section and content) Reason Comments Anticoagulation Telephone Fu Home INR re sult Reason Comments Refill Request Reason Onset Date Comments Anticoagulation Telephone Fu 06/27/2021 [facility] INR Result Reason Comments Radiology CT Specialty Diagnoses / Procedures Referred By Malika montano Referred To Contact CT IMAGING Diagnoses Vasculopathy Procedures CTA NECK W IVCON CT ANGIOGRAPHY NECK W/CONTRAST/NONCONTRAST Daksha Reed MD [address] [place] [address] Ct Imaging Referral ID Status Reason Start Date Expiration Date V isits Requested Visits Authorized [id number] Closed Auto-Generate d Referral 06/16/2021 07/16/2021 1 1 Reason Onset Date Comments Refill Request 06/15/2021 Reason Comments Patient Update Reason Comments Question Reason Comments Anticoagulation Telephone Fu Home INR Reason Comments Anticoagulation Telephone Fu Reason Onset Date Comments Refill Request 08/30/2021 Reason Comments Imm/Inj Reason Comments Orders Reason Onset Date Comments Refill Request 09/19/2021 Reason Onset Date Comments Anticoagulation Telephone Fu 10/02/2021 [facility] INR Result Reason Onset Date Comments Anticoagulation Telephone Fu 10/16/2021 [facility] INR Result Reason Onset Date Comments Refill Request 10/31/2021 Reason Onset Date Comments Anticoagulation 11/06/2021 Home INR Reason Comments Bilateral Knee Pain Pain (Shoulder Pain) Reason Onset Date Comments Anticoagulation Telephone Fu 11/27/2021 [facility] INR Result Reason Onset Date Comments Refill Request 11/28/2021 Reason Comments Recheck ER follow up, abdomi nal pain Reason Onset Date Comments Anticoagulation Telephone Fu 12/11/2021 [facility] INR Result Reason Comments Established Patient Follow-Up Vasculitis . Reason Onset Date Comments Refill Request 12/19/2021 Reason Onset Date Comments Anticoagulation Telephone Fu 12/25/2021 [facility] INR Result Reason Onset Date Comments Refill Request 12/29/2021 Reason Comments Pain Bilateral knee, righ t shoulder pain Reason Onset Date Comments Anticoagulation Telephone Fu 01/08/2022 [facility] INR Result Reason Onset Date Comments Refill Request 01/29/2022 Reason Onset Date Comments Refill Request 02/15/2022 Reason Comments Anticoagulation Telephone Fu Home INR Reason Comments Head Congestion Nasal Congestion Reason Onset Date Comments Refill Request 03/29/2022 Reason Onset Date Comments Refill Request 04/12/2022 Reason Onset Date Comments Refill Request 04/26/2022 Reason Comments EKG results Reason Comments Anticoagulation Telephone Fu Home INR re sult Reason Onset Date Comments Refill Request 05/24/2022 Reason Onset Date Comments Anticoagulation Telephone Fu 06/06/2022 [facility] INR Result Reason Comments URI Reason Onset Date Comments Refill Request 07/06/2022 Reason Comments Anticoagulation Telephone Fu Home INR me ter Reason Onset Date Comments Refill Request 08/23/2022 Reason Comments 6 week f/up Reason Comments Pain Bilateral knee and r ight shoulder Reason Onset Date Comments Refill Request 09/25/2022 Reason Comments Recheck Medication follow up Reason Onset Date Comments Refill Request 10/23/2022 Reason Comments Forms for Home INR Monitor Reason Comments Anticoagulation Telephone Fu Lab INR Reason Onset Date Comments Refill Request 12/24/2022 Reason Comments Pain Bilateral knee and r ight shoulder pain Reason Onset Date Comments Refill Request 02/13/2023 Source Comments (unrecognize d section and content) In the event this informatio n is protected by the Federal Confidentiality of Alcohol and Drug Abuse Patient Records regulations: The Federal rules restrict any use of the information to criminally investigate or prosecute any alcohol or drug abuse patient.[facility] CenterIn the event this information is protected by the Federal Confidentiality of Alcohol and Drug Abuse Patient Records regulations: The Federal rules restrict any use of the information to criminally investigate or prosecute any alcohol or drug abuse patient.[facility] CenterIn the event this information is protected by the Federal Confidentiality of Alcohol and Drug Abuse Patient Records regulations: The Federal rules restrict any use of the information to criminally investigate or prosecute any alcohol or drug abuse patient.[facility] CenterIn the event this information is protected by the Federal Confidentiality of Alcohol and Drug Abuse Patient Records regulations: The Federal rules restrict any use of the information to criminally investigate or prosecute any alcohol or drug abuse patient.[facility] CenterIn the event this information is protected by the Federal Confidentiality of Alcohol and Drug Abuse Patient Records regulations: The Federal rules restrict any use of the information to criminally investigate or prosecute any alcohol or drug abuse patient.[facility] CenterIn the event this information is protected by the Federal Confidentiality of Alcohol and Drug Abuse Patient Records regulations: The Federal rules restrict any use of the information to criminally investigate or prosecute any alcohol or drug abuse patient.[facility] CenterIn the event this information is protected by the Federal Confidentiality of Alcohol and Drug Abuse Patient Records regulations: The Federal rules restrict any use of the information to criminally investigate or prosecute any alcohol or drug abuse patient.[facility] CenterIn the event this information is protected by the Federal Confidentiality of Alcohol and Drug Abuse Patient Records regulations: The Federal rules restrict any use of the information to criminally investigate or prosecute any alcohol or drug abuse patient.[facility] CenterIn the event this information is protected by the Federal Confidentiality of Alcohol and Drug Abuse Patient Records regulations: The Federal rules restrict any use of the information to criminally investigate or prosecute any alcohol or drug abuse patient.[facility] CenterIn the event this information is protected by the Federal Confidentiality of Alcohol and Drug Abuse Patient Records regulations: The Federal rules restrict any use of the information to criminally investigate or prosecute any alcohol or drug abuse patient.[facility] CenterIn the event this information is protected by the Federal Confidentiality of Alcohol and Drug Abuse Patient Records regulations: The Federal rules restrict any use of the information to criminally investigate or prosecute any alcohol or drug abuse patient.[facility] CenterIn the event this information is protected by the Federal Confidentiality of Alcohol and Drug Abuse Patient Records regulations: The Federal rules restrict any use of the information to criminally investigate or prosecute any alcohol or drug abuse patient.[facility] CenterIn the event this information is protected by the Federal Confidentiality of Alcohol and Drug Abuse Patient Records regulations: The Federal rules restrict any use of the information to criminally investigate or prosecute any alcohol or drug abuse patient.[facility] CenterIn the event this information is protected by the Federal Confidentiality of Alcohol and Drug Abuse Patient Records regulations: The Federal rules restrict any use of the information to criminally investigate or prosecute any alcohol or drug abuse patient.[facility] CenterIn the event this information is protected by the Federal Confidentiality of Alcohol and Drug Abuse Patient Records regulations: The Federal rules restrict any use of the information to criminally investigate or prosecute any alcohol or drug abuse patient.[facility] CenterIn the event this information is protected by the Federal Confidentiality of Alcohol and Drug Abuse Patient Records regulations: The Federal rules restrict any use of the information to criminally investigate or prosecute any alcohol or drug abuse patient.[facility] CenterIn the event this information is protected by the Federal Confidentiality of Alcohol and Drug Abuse Patient Records regulations: The Federal rules restrict any use of the information to criminally investigate or prosecute any alcohol or drug abuse patient.[facility] CenterIn the event this information is protected by the Federal Confidentiality of Alcohol and Drug Abuse Patient Records regulations: The Federal rules restrict any use of the information to criminally investigate or prosecute any alcohol or drug abuse patient.[facility] CenterIn the event this information is protected by the Federal Confidentiality of Alcohol and Drug Abuse Patient Records regulations: The Federal rules restrict any use of the information to criminally investigate or prosecute any alcohol or drug abuse patient.[facility] CenterIn the event this information is protected by the Federal Confidentiality of Alcohol and Drug Abuse Patient Records regulations: The Federal rules restrict any use of the information to criminally investigate or prosecute any alcohol or drug abuse patient.[facility] CenterIn the event this information is protected by the Federal Confidentiality of Alcohol and Drug Abuse Patient Records regulations: The Federal rules restrict any use of the information to criminally investigate or prosecute any alcohol or drug abuse patient.[facility] the event this information is protected by the Federal Confidentiality of Alcohol and Drug Abuse Patient Records regulations: The Federal rules restrict any use of the information to criminally investigate or prosecute any alcohol or drug abuse patient.[facility] CenterIn the event this information is protected by the Federal Confidentiality of Alcohol and Drug Abuse Patient Records regulations: The Federal rules restrict any use of the information to criminally investigate or prosecute any alcohol or drug abuse patient.[facility] CenterIn the event this information is protected by the Federal Confidentiality of Alcohol and Drug Abuse Patient Records regulations: The Federal rules restrict any use of the information to criminally investigate or prosecute any alcohol or drug abuse patient.[facility]In the event this information is protected by the Federal Confidentiality of Alcohol and Drug Abuse Patient Records regulations: The Federal rules restrict any use of the information to criminally investigate or prosecute any alcohol or drug abuse patient.[facility] CenterIn the event this information is protected by the Federal Confidentiality of Alcohol and Drug Abuse Patient Records regulations: The Federal rules restrict any use of the information to criminally investigate or prosecute any alcohol or drug abuse patient.[facility] CenterIn the event this information is protected by the Federal Confidentiality of Alcohol and Drug Abuse Patient Records regulations: The Federal rules restrict any use of the information to criminally investigate or prosecute any alcohol or drug abuse patient.[facility] CenterIn the event this information is protected by the Federal Confidentiality of Alcohol and Drug Abuse Patient Records regulations: The Federal rules restrict any use of the information to criminally investigate or prosecute any alcohol or drug abuse patient.[facility] CenterIn the event this information is protected by the Federal Confidentiality of Alcohol and Drug Abuse Patient Records regulations: The Federal rules restrict any use of the information to criminally investigate or prosecute any alcohol or drug abuse patient.[facility] CenterIn the event this information is protected by the Federal Confidentiality of Alcohol and Drug Abuse Patient Records regulations: The Federal rules restrict any use of the information to criminally investigate or prosecute any alcohol or drug abuse patient.[facility] CenterIn the event this information is protected by the Federal Confidentiality of Alcohol and Drug Abuse Patient Records regulations: The Federal rules restrict any use of the information to criminally investigate or prosecute any alcohol or drug abuse patient.[facility] CenterIn the event this information is protected by the Federal Confidentiality of Alcohol and Drug Abuse Patient Records regulations: The Federal rules restrict any use of the information to criminally investigate or prosecute any alcohol or drug abuse patient.[facility] CenterIn the event this information is protected by the Federal Confidentiality of Alcohol and Drug Abuse Patient Records regulations: The Federal rules restrict any use of the information to criminally investigate or prosecute any alcohol or drug abuse patient.[facility] CenterIn the event this information is protected by the Federal Confidentiality of Alcohol and Drug Abuse Patient Records regulations: The Federal rules restrict any use of the information to criminally investigate or prosecute any alcohol or drug abuse patient.[facility] CenterIn the event this information is protected by the Federal Confidentiality of Alcohol and Drug Abuse Patient Records regulations: The Federal rules restrict any use of the information to criminally investigate or prosecute any alcohol or drug abuse patient.[facility] CenterIn the event this information is protected by the Federal Confidentiality of Alcohol and Drug Abuse Patient Records regulations: The Federal rules restrict any use of the information to criminally investigate or prosecute any alcohol or drug abuse patient.[facility] CenterIn the event this information is protected by the Federal Confidentiality of Alcohol and Drug Abuse Patient Records regulations: The Federal rules restrict any use of the information to criminally investigate or prosecute any alcohol or drug abuse patient.[facility] CenterIn the event this information is protected by the Federal Confidentiality of Alcohol and Drug Abuse Patient Records regulations: The Federal rules restrict any use of the information to criminally investigate or prosecute any alcohol or drug abuse patient.[facility] CenterIn the event this information is protected by the Federal Confidentiality of Alcohol and Drug Abuse Patient Records regulations: The Federal rules restrict any use of the information to criminally investigate or prosecute any alcohol or drug abuse patient.[facility] CenterIn the event this information is protected by the Federal Confidentiality of Alcohol and Drug Abuse Patient Records regulations: The Federal rules restrict any use of the information to criminally investigate or prosecute any alcohol or drug abuse patient.[facility] CenterIn the event this information is protected by the Federal Confidentiality of Alcohol and Drug Abuse Patient Records regulations: The Federal rules restrict any use of the information to criminally investigate or prosecute any alcohol or drug abuse patient.[facility] CenterIn the event this information is protected by the Federal Confidentiality of Alcohol and Drug Abuse Patient Records regulations: The Federal rules restrict any use of the information to criminally investigate or prosecute any alcohol or drug abuse patient.[facility] CenterIn the event this information is protected by the Federal Confidentiality of Alcohol and Drug Abuse Patient Records regulations: The Federal rules restrict any use of the information to criminally investigate or prosecute any alcohol or drug abuse patient.[facility] CenterIn the event this information is protected by the Federal Confidentiality of Alcohol and Drug Abuse Patient Records regulations: The Federal rules restrict any use of the information to criminally investigate or prosecute any alcohol or drug abuse patient.[facility] CenterIn the event this information is protected by the Federal Confidentiality of Alcohol and Drug Abuse Patient Records regulations: The Federal rules restrict any use of the information to criminally investigate or prosecute any alcohol or drug abuse patient.[facility] CenterIn the event this information is protected by the Federal Confidentiality of Alcohol and Drug Abuse Patient Records regulations: The Federal rules restrict any use of the information to criminally investigate or prosecute any alcohol or drug abuse patient.[facility] CenterIn the event this information is protected by the Federal Confidentiality of Alcohol and Drug Abuse Patient Records regulations: The Federal rules restrict any use of the information to criminally investigate or prosecute any alcohol or drug abuse patient.[facility] CenterIn the event this information is protected by the Federal Confidentiality of Alcohol and Drug Abuse Patient Records regulations: The Federal rules restrict any use of the information to criminally investigate or prosecute any alcohol or drug abuse patient.[facility] CenterIn the event this information is protected by the Federal Confidentiality of Alcohol and Drug Abuse Patient Records regulations: The Federal rules restrict any use of the information to criminally investigate or prosecute any alcohol or drug abuse patient.[facility] CenterIn the event this information is protected by the Federal Confidentiality of Alcohol and Drug Abuse Patient Records regulations: The Federal rules restrict any use of the information to criminally investigate or prosecute any alcohol or drug abuse patient.[facility] CenterIn the event this information is protected by the Federal Confidentiality of Alcohol and Drug Abuse Patient Records regulations: The Federal rules restrict any use of the information to criminally investigate or prosecute any alcohol or drug abuse patient.[facility] CenterIn the event this information is protected by the Federal Confidentiality of Alcohol and Drug Abuse Patient Records regulations: The Federal rules restrict any use of the information to criminally investigate or prosecute any alcohol or drug abuse patient.[facility] CenterIn the event this information is protected by the Federal Confidentiality of Alcohol and Drug Abuse Patient Records regulations: The Federal rules restrict any use of the information to criminally investigate or prosecute any alcohol or drug abuse patient.[facility] CenterIn the event this information is protected by the Federal Confidentiality of Alcohol and Drug Abuse Patient Records regulations: The Federal rules restrict any use of the information to criminally investigate or prosecute any alcohol or drug abuse patient.[facility] CenterIn the event this information is protected by the Federal Confidentiality of Alcohol and Drug Abuse Patient Records regulations: The Federal rules restrict any use of the information to criminally investigate or prosecute any alcohol or drug abuse patient.[facility] CenterIn the event this information is protected by the Federal Confidentiality of Alcohol and Drug Abuse Patient Records regulations: The Federal rules restrict any use of the information to criminally investigate or prosecute any alcohol or drug abuse patient.[facility] CenterIn the event this information is protected by the Federal Confidentiality of Alcohol and Drug Abuse Patient Records regulations: The Federal rules restrict any use of the information to criminally investigate or prosecute any alcohol or drug abuse patient.[facility] CenterIn the event this information is protected by the Federal Confidentiality of Alcohol and Drug Abuse Patient Records regulations: The Federal rules restrict any use of the information to criminally investigate or prosecute any alcohol or drug abuse patient.[facility] CenterIn the event this information is protected by the Federal Confidentiality of Alcohol and Drug Abuse Patient Records regulations: The Federal rules restrict any use of the information to criminally investigate or prosecute any alcohol or drug abuse patient.[facility] CenterIn the event this information is protected by the Federal Confidentiality of Alcohol and Drug Abuse Patient Records regulations: The Federal rules restrict any use of the information to criminally investigate or prosecute any alcohol or drug abuse patient.[facility] CenterIn the event this information is protected by the Federal Confidentiality of Alcohol and Drug Abuse Patient Records regulations: The Federal rules restrict any use of the information to criminally investigate or prosecute any alcohol or drug abuse patient.[facility] CenterIn the event this information is protected by the Federal Confidentiality of Alcohol and Drug Abuse Patient Records regulations: The Federal rules restrict any use of the information to criminally investigate or prosecute any alcohol or drug abuse patient.[facility] CenterIn the event this information is protected by the Federal Confidentiality of Alcohol and Drug Abuse Patient Records regulations: The Federal rules restrict any use of the information to criminally investigate or prosecute any alcohol or drug abuse patient.[facility] CenterIn the event this information is protected by the Federal Confidentiality of Alcohol and Drug Abuse Patient Records regulations: The Federal rules restrict any use of the information to criminally investigate or prosecute any alcohol or drug abuse patient.[facility] CenterIn the event this information is protected by the Federal Confidentiality of Alcohol and Drug Abuse Patient Records regulations: The Federal rules restrict any use of the information to criminally investigate or prosecute any alcohol or drug abuse patient.[facility] CenterIn the event this information is protected by the Federal Confidentiality of Alcohol and Drug Abuse Patient Records regulations: The Federal rules restrict any use of the information to criminally investigate or prosecute any alcohol or drug abuse patient.[facility] [facility] CenterIn the event this information is protected by the Federal Confidentiality of Alcohol and Drug Abuse Patient Records regulations: The Federal rules restrict any use of the information to criminally investigate or prosecute any alcohol or drug abuse patient.[facility] CenterIn the event this information is protected by the Federal Confidentiality of Alcohol and Drug Abuse Patient Records regulations: The Federal rules restrict any use of the information to criminally investigate or prosecute any alcohol or drug abuse patient.[facility] CenterIn the event this information is protected by the Federal Confidentiality of Alcohol and Drug Abuse Patient Records regulations: The Federal rules restrict any use of the information to criminally investigate or prosecute any alcohol or drug abuse patient.[facility] CenterIn the event this information is protected by the Federal Confidentiality of Alcohol and Drug Abuse Patient Records regulations: The Federal rules restrict any use of the information to criminally investigate or prosecute any alcohol or drug abuse patient.[facility] CenterIn the event this information is protected by the Federal Confidentiality of Alcohol and Drug Abuse Patient Records regulations: The Federal rules restrict any use of the information to criminally investigate or prosecute any alcohol or drug abuse patient.[facility] the event this information is protected by the Federal Confidentiality of Alcohol and Drug Abuse Patient Records regulations: The Federal rules restrict any use of the information to criminally investigate or prosecute any alcohol or drug abuse patient.[facility] CenterIn the event this information is protected by the Federal Confidentiality of Alcohol and Drug Abuse Patient Records regulations: The Federal rules restrict any use of the information to criminally investigate or prosecute any alcohol or drug abuse patient.[facility] CenterIn the event this information is protected by the Federal Confidentiality of Alcohol and Drug Abuse Patient Records regulations: The Federal rules restrict any use of the information to criminally investigate or prosecute any alcohol or drug abuse patient.[facility] the event this information is protected by the Federal Confidentiality of Alcohol and Drug Abuse Patient Records regulations: The Federal rules restrict any use of the information to criminally investigate or prosecute any alcohol or drug abuse patient.[facility] CenterIn the event this information is protected by the Federal Confidentiality of Alcohol and Drug Abuse Patient Records regulations: The Federal rules restrict any use of the information to criminally investigate or prosecute any alcohol or drug abuse patient.[facility] CenterIn the event this information is protected by the Federal Confidentiality of Alcohol and Drug Abuse Patient Records regulations: The Federal rules restrict any use of the information to criminally investigate or prosecute any alcohol or drug abuse patient.[facility] CenterIn the event this information is protected by the Federal Confidentiality of Alcohol and Drug Abuse Patient Records regulations: The Federal rules restrict any use of the information to criminally investigate or prosecute any alcohol or drug abuse patient.[facility] CenterIn the event this information is protected by the Federal Confidentiality of Alcohol and Drug Abuse Patient Records regulations: The Federal rules restrict any use of the information to criminally investigate or prosecute any alcohol or drug abuse patient.[facility] CenterIn the event this information is protected by the Federal Confidentiality of Alcohol and Drug Abuse Patient Records regulations: The Federal rules restrict any use of the information to criminally investigate or prosecute any alcohol or drug abuse patient.[facility] CenterIn the event this information is protected by the Federal Confidentiality of Alcohol and Drug Abuse Patient Records regulations: The Federal rules restrict any use of the information to criminally investigate or prosecute any alcohol or drug abuse patient.[facility] CenterIn the event this information is protected by the Federal Confidentiality of Alcohol and Drug Abuse Patient Records regulations: The Federal rules restrict any use of the information to criminally investigate or prosecute any alcohol or drug abuse patient.[facility] CenterIn the event this information is protected by the Federal Confidentiality of Alcohol and Drug Abuse Patient Records regulations: The Federal rules restrict any use of the information to criminally investigate or prosecute any alcohol or drug abuse patient.[facility] CenterIn the event this information is protected by the Federal Confidentiality of Alcohol and Drug Abuse Patient Records regulations: The Federal rules restrict any use of the information to criminally investigate or prosecute any alcohol or drug abuse patient.[facility] CenterIn the event this information is protected by the Federal Confidentiality of Alcohol and Drug Abuse Patient Records regulations: The Federal rules restrict any use of the information to criminally investigate or prosecute any alcohol or drug abuse patient.[facility] CenterIn the event this information is protected by the Federal Confidentiality of Alcohol and Drug Abuse Patient Records regulations: The Federal rules restrict any use of the information to criminally investigate or prosecute any alcohol or drug abuse patient.[facility] CenterIn the event this information is protected by the Federal Confidentiality of Alcohol and Drug Abuse Patient Records regulations: The Federal rules restrict any use of the information to criminally investigate or prosecute any alcohol or drug abuse patient.[facility] CenterIn the event this information is protected by the Federal Confidentiality of Alcohol and Drug Abuse Patient Records regulations: The Federal rules restrict any use of the information to criminally investigate or prosecute any alcohol or drug abuse patient.[facility] CenterIn the event this information is protected by the Federal Confidentiality of Alcohol and Drug Abuse Patient Records regulations: The Federal rules restrict any use of the information to criminally investigate or prosecute any alcohol or drug abuse patient.[facility] Care Teams (unrecognized sec tion and content) Patient Access Representative Relationship Specialty Start Date End Date Anuj Hanson MD [address] [place] [address] PCP - General Internal Medicine 09/20/17 13, Pharmacist [id number] [place] [address] Pharmacist Pharmacy 10/01/19 Patient Access Representative Relationship Specialty Start Date End Date Anuj Hanson MD [address] [place] [address] PCP - General Internal Medicine 09/20/17 13, Pharmacist [id number] [place] [address] Pharmacist Pharmacy 10/01/19 Patient Access Representative Relationship Specialty Start Date End Date Anuj Hanson MD [address] [place] [address] PCP - General Internal Medicine 09/20/17 13, Pharmacist [phone] [place] [address] Pharmacist Pharmacy 10/01/19 Patient Access Representative Relationship Specialty Start Date End Date Anuj Hanson MD [address] [place] [address] PCP - General Internal Medicine 09/20/17 13, Pharmacist [id number] [place] [address] Pharmacist Pharmacy 10/01/19 Patient Access Representative Relationship Specialty Start Date End Date Anuj Hanson MD [address] [place] [address] PCP - General Internal Medicine 09/20/17 13, Pharmacist [id number] [place] [address] Pharmacist Pharmacy 10/01/19 Patient Access Representative Relationship Specialty Start Date End Date Anuj Hanson MD [address] [place] [address] PCP - General Internal Medicine 09/20/17 13, Pharmacist [id number] [place] [address] Pharmacist Pharmacy 10/01/19 Patient Access Representative Relationship Specialty Start Date End Date Anuj Hanson MD [address] [place] [address] PCP - General Internal Medicine 09/20/17 13, Pharmacist [phone] [place] [address] Pharmacist Pharmacy 10/01/19 Patient Access Representative Relationship Specialty Start Date End Date Anuj Hanson MD [address] [place] [address] PCP - General Internal Medicine 09/20/17 13, Pharmacist [id number] [place] [address] Pharmacist Pharmacy 10/01/19 Patient Access Representative Relationship Specialty Start Date End Date Anuj Hanson MD [address] [place] [address] PCP - General Internal Medicine 09/20/17 13, Pharmacist [id number] [place] [address] Pharmacist Pharmacy 10/01/19 Patient Access Representative Relationship Specialty Start Date End Date Anuj Hanson MD [address] [place] [address] PCP - General Internal Medicine 09/20/17 13, Pharmacist [phone] [place] [address] Pharmacist Pharmacy 10/01/19 Patient Access Representative Relationship Specialty Start Date End Date Anuj Hanson MD [address] [place] [address] PCP - General Internal Medicine 09/20/17 13, Pharmacist [address] [place] [address] Pharmacist Pharmacy 10/01/19 Patient Access Representative Relationship Specialty Start Date End Date Anuj Hanson MD [address] [place] [address] PCP - General Internal Medicine 09/20/17 13, Pharmacist [id number] [place] [address] Pharmacist Pharmacy 10/01/19 Patient Access Representative Relationship Specialty Start Date End Date Anuj Hanson MD [address] [place] [address] PCP - General Internal Medicine 09/20/17 13, Pharmacist [phone] [place] [address] Pharmacist Pharmacy 10/01/19 Patient Access Representative Relationship Specialty Start Date End Date Anuj Hanson MD [address] [facility] [place] [address] PCP - General Internal Medicine 09/20/17 13, Pharmacist [phone] [place] [address] Pharmacist Pharmacy 10/01/19 Patient Access Representative Relationship Specialty Start Date End Date Anuj Hanson MD [address] [place] [address] PCP - General Internal Medicine 09/20/17 13, Pharmacist [id number] [place] [address] Pharmacist Pharmacy 10/01/19 Patient Access Representative Relationship Specialty Start Date End Date Anuj Hanson MD [address] [facility] [place] [place] [address] PCP - General Internal Medicine 09/20/17 13, Pharmacist [phone] [place] [address] Pharmacist Pharmacy 10/01/19 Patient Access Representative Relationship Specialty Start Date End Date Anuj Hanson MD [address] [place] [address] PCP - General Internal Medicine 09/20/17 13, Pharmacist [id number] [place] [address] Pharmacist Pharmacy 10/01/19 Patient Access Representative Relationship Specialty Start Date End Date Anuj Hanson MD [address] [place] [address] PCP - General Internal Medicine 09/20/17 13, Pharmacist [address] [place] [address] Pharmacist Pharmacy 10/01/19 Patient Access Representative Relationship Specialty Start Date End Date Anuj Hanson MD [address] [facility] [place] [address] PCP - General Internal Medicine 09/20/17 13, Pharmacist [address] [place] [address] Pharmacist Pharmacy 10/01/19 Patient Access Representative Relationship Specialty Start Date End Date Anuj Hanson MD [address] [facility] [place] [place] [address] PCP - General Internal Medicine 09/20/17 13, Pharmacist [id number] [place] [address] Pharmacist Pharmacy 10/01/19 Patient Access Representative Relationship Specialty Start Date End Date Anuj Hanson MD [address] [place] [address] PCP - General Internal Medicine 09/20/17 13, Pharmacist [address] [place] [address] Pharmacist Pharmacy 10/01/19 Patient Access Representative Relationship Specialty Start Date End Date Anuj Hanson MD [address] [place] [address] PCP - General Internal Medicine 09/20/17 13, Pharmacist [phone] [place] [address] Pharmacist Pharmacy 10/01/19 Patient Access Representative Relationship Specialty Start Date End Date Anuj Hanson MD [address] [place] [address] PCP - General Internal Medicine 09/20/17 13, Pharmacist [address] [place] [address] Pharmacist Pharmacy 10/01/19 Patient Access Representative Relationship Specialty Start Date End Date Anuj Hanson MD [address] [place] [address] PCP - General Internal Medicine 09/20/17 13, Pharmacist [address] [place] [address] Pharmacist Pharmacy 10/01/19 Patient Access Representative Relationship Specialty Start Date End Date Anuj Hanson MD [address] [place] [address] PCP - General Internal Medicine 09/20/17 13, Pharmacist [phone] [place] [address] Pharmacist Pharmacy 10/01/19 Patient Access Representative Relationship Specialty Start Date End Date Anuj Hanson MD [address] [place] [address] PCP - General Internal Medicine 09/20/17 13, Pharmacist [phone] [place] [address] Pharmacist Pharmacy 10/01/19 Patient Access Representative Relationship Specialty Start Date End Date Anuj Hanson MD [address] [place] [address] PCP - General Internal Medicine 09/20/17 13, Pharmacist [address] [place] [address] Pharmacist Pharmacy 10/01/19 Patient Access Representative Relationship Specialty Start Date End Date Anuj Hanson MD [address] [place] [address] PCP - General Internal Medicine 09/20/17 13, Pharmacist [phone] [place] [address] Pharmacist Pharmacy 10/01/19 Patient Access Representative Relationship Specialty Start Date End Date Anuj Hanson MD [address] [place] [address] PCP - General Internal Medicine 09/20/17 13, Pharmacist [address] [place] [address] Pharmacist Pharmacy 10/01/19 Patient Access Representative Relationship Specialty Start Date End Date Anuj Hanson MD [address] [place] [address] PCP - General Internal Medicine 09/20/17 13, Pharmacist [address] [place] [address] Pharmacist Pharmacy 10/01/19 Patient Access Representative Relationship Specialty Start Date End Date Anuj Hanson MD [address] [place] [address] PCP - General Internal Medicine 09/20/17 13, Pharmacist [id number] [place] [address] Pharmacist Pharmacy 10/01/19 Patient Access Representative Relationship Specialty Start Date End Date Anuj Hanson MD [address] [place] [address] PCP - General Internal Medicine 09/20/17 13, Pharmacist [address] [place] [address] Pharmacist Pharmacy 10/01/19 Patient Access Representative Relationship Specialty Start Date End Date Anuj Hanson MD [address] [place] [address] PCP - General Internal Medicine 09/20/17 13, Pharmacist [address] [place] [address] Pharmacist Pharmacy 10/01/19 Patient Access Representative Relationship Specialty Start Date End Date Anuj Hanson MD [address] [place] [address] PCP - General Internal Medicine 09/20/17 13, Pharmacist [phone] [place] [address] Pharmacist Pharmacy 10/01/19 Patient Access Representative Relationship Specialty Start Date End Date Anuj Hanson MD [address] [place] [address] PCP - General Internal Medicine 09/20/17 13, Pharmacist [phone] [place] [address] Pharmacist Pharmacy 10/01/19 Patient Access Representative Relationship Specialty Start Date End Date Anuj Hanson MD [address] [place] [address] PCP - General Internal Medicine 09/20/17 13, Pharmacist [phone] [place] [address] Pharmacist Pharmacy 10/01/19 Patient Access Representative Relationship Specialty Start Date End Date Anuj Hanson MD [address] [place] [address] PCP - General Internal Medicine 09/20/17 13, Pharmacist [address] [place] [address] Pharmacist Pharmacy 10/01/19 Patient Access Representative Relationship Specialty Start Date End Date Anuj Hanson MD [address] [place] [address] PCP - General Internal Medicine 09/20/17 13, Pharmacist [phone] [place] [address] Pharmacist Pharmacy 10/01/19 Patient Access Representative Relationship Specialty Start Date End Date Anuj Hanson MD [address] [place] [address] PCP - General Internal Medicine 09/20/17 Patient Access Representative Relationship Specialty Start Date End Date Anuj Hanson MD [address] [place] [address] PCP - General Internal Medicine 09/20/17 Patient Access Representative Relationship Specialty Start Date End Date Anuj Hanson MD [address] [place], [place] [address] PCP - General Internal Medicine 09/20/17 13, Pharmacist [id number] [place] [address] Pharmacist Pharmacy 10/01/19 11/14/22 Patient Access Representative Relationship Specialty Start Date End Date Anuj Hanson MD [address] [place], [place] [address] PCP - General Internal Medicine 09/20/17 Patient Access Representative Relationship Specialty Start Date End Date Anuj Hanson MD [address] [place], [place] [address] PCP - General Internal Medicine 09/20/17 Patient Access Representative Relationship Specialty Start Date End Date Anuj Hanson MD [address] [place] [address] PCP - General Internal Medicine 09/20/17 FOR RECORDS PERTAINING TO PATIENTS WHO ARE OR HAVE BEEN ENROLLED IN A CHEMICAL DEPENDENCY/SUBSTANCEABUSE PROGRAM, SOME INFORMATION MAY BE OMITTED. This clinical summary was aggregated from multiple sources. Caution should be exercised in using it in the provision of clinical care. This summary normalizes information from multiple sources, and as a consequence, information in this document may materially change the coding, format and clinical context of patient data. In addition, data may be omitted in some cases. CLINICAL DECISIONS SHOULD BE BASED ON THE PRIMARY CLINICAL RECORDS. [employer] provides no warranty or guarantee of the accuracy or completeness of information in this document.
== END | disposition home or self-care (01) ==
LOC: CT 17:51
PROVIDERS: PCP Internal Medicine; Referring Provider Physician Assistant; Visit Provider Physician Assistant
DX: S60.221A Contusion of right hand, initial encounter (principal); X58.XXXA Exposure to other specified factors, initial encounter
CPT/HCPCS: 73201; Q9967

== ENCOUNTER → 2023-06-06 | Outpatient (CLI) | payer BC, SELFPAY ==
--- NOTE | 2023-06-06 16:16 | ST.MBS ---
Modified Barium Swallow Patient Information Study Date: 06/06/23 Study Time: 14:30 Direct Billable Minutes: 86 Total Minutes procedure & reportin Diagnosis: Dysphagia R13.10 Referring Physician: MEL BOUCHER Reason for Referral: Objectively assess swallow function, assess risk for aspiration, and determine recommendations for least restrictive diet textures and compensatory strategies to improve safety of swallow. Medical History: The patient reports history of difficulty swallowing drinks, especially lemonade. She feels as if it goes down the wrong way. When she stopped drinking lemonade daily, she found she had much less difficulty swallowing. On rare occasions, she has had regurgitation of food/drink. She has some trouble swallowing pills, but admits to taking many pills whole at one time and with a liquid wash. The pills feel like they get caught. She also reports frequent sensation of phlegm in her throat. PMH: GERD managed by Protonix, fall in December of 2022 (hit her head, scans clear of injury), HTN, HLD. Current Diet Ordered: Regular textures / Thin liquids Dentition: Natural Teeth Mental Status: WNL Respiratory Status: Oxygenating on Room Air Penetration-Aspiration Scale Penetration-Aspiration Scale: OBJECTIVE ASSESSMENT OF SWALLOW FUNCTION (QUANTITATIVE ? PER TRIAL): PENETRATION / ASPIRATION SCALE (JACKSON): 1 = does not enter airway 2 = enters airway/above vocal folds/ejected 3 = enters airway/above vocal folds/not ejected 4 = enters airway/contacts vocal folds/ejected 5 = enters airway/contacts vocal folds/not ejected 6 = enters airway/below vocal folds/ejected 7 = enters airway/below vocal folds/not ejected despite effort 8 = enters airway/below vocal folds/no effort VIDEOFLOROSCOPIC SCALE SCORE (JACKSON): Grade I = aspiration of material that has penetrated into the laryngeal vestibule, intact cough reflex Grade II = aspiration < 10 % of the bolus, intact cough reflex Grade III = aspiration of < 10 % of the bolus, reduced cough reflex or aspiration of > 10 % of the bolus, intact cough reflex Grade IV = aspiration of > 10 % of the bolus, reduced cough reflex Penetration-Aspiration Scale Score Thin Liquid via teaspoon: Result: 1= does not enter airway Thin Liquid via teaspoon Trial 2: Result: 1= does not enter airway Thin Liquid via large single sip: cup: Result: 1= does not enter airway Thin Liquid via sequential sips: cup: Result: 2= enter airway/above vocal folds/ejected Comment: Esophageal screen - Complete clearance. [place] Thick Liquid via small single sip: cup: Result: 1= does not enter airway Pudding via teaspoon: Result: 1= does not enter airway Comment: Esophageal screen - Retention throughout mid esophagus. Thin Liquid via single sip: straw: Result: 1= does not enter airway Comment: Esophageal screen - Pudding retention mostly cleared with use of liquid wash, mild retention remaining in mid esophagus. 1/2 Cookie: Result: 1= does not enter airway Thin Liquid via sequential sips:straw: Result: 1= does not enter airway Comment: Esophageal screen - Mild retention of barium (likely of previous trial of cookie coated in barium) in mid esophagus. Barium Tablet: Result: 1= does not enter airway Comment: Water for liquid wash Esophageal screen - complete clearance. Oral Phase Labial Seal: No Labial Escape Tongue Control During Bolus Hold: Posterior escape of greater than half of bolus (sequential sips) Bolus Preparation/Mastication: Timely and efficient chewing and mashing Bolus Transport/Lingual Motion: Delayed initiation of tongue motion Oral Residue: Residue collection on oral structures Pharyngeal Phase Initiation of Pharyngeal Swallow: Bolus head in pyriforms Soft Palate Elevation: No bolus between soft palate and pharyngeal wall Laryngeal Elevation: Comp. Superior move thyroid cart w/comp. apprx arytenoid cart-epig pet Anterior Hyoid Excursion: Complete anterior movement Epiglottic Movement: Complete inversion Laryngeal Vestibule Closure at Height of Swallow: Incomplete; narrow column of air/contrast in laryngeal vestibule Pharyngeal Stripping Wave: Present - complete Pharyngoesophageal Segment Opening: Complete distension and complete duration; no obstruction of flow Tongue Base Retraction: Narrow column of contrast between tongue base & post. pharyngeal wall Pharyngeal Residue: Trace residue within or on pharyngeal structures Esophageal Phase Esophageal Clearance: Esophageal retention Diagnosis/Impression Diagnosis: Esophageal dysphagia R13.14 Impression: Oropharyngeal swallow function is grossly WNL. Posterior loss of sequential sips of thin liquids to the pyriforms prior to swallow onset; otherwise, patient demonstrated good bolus control. Trace laryngeal penetration of thin liquids via cup 1X, which fully ejected. No aspiration was observed. The esophageal phase is primarily marked by... -Significant retention of pudding in the mid esophagus, which somewhat improved with thin liquid wash. During esophageal screen of pudding, the patient felt as if the pudding was stuck in her throat, though only trace pudding residues appeared in the pharynx. -Barium retention in the mid esophagus was seen during esophageal screen of sequential sips of thin liquids via straw, which was likely from previous trial of cookie. The liquid barium appeared to empty through the LES during the screen. Recommendations Diet: Regular Textures and Thin Liquids Comment: If sensation of retention of food in throat, try liquid wash. If sensation persists, stop meal and resume at a later time. Take medications 1 at a time with water. Compensatory Strategies: Small Bites, Small Sips, Slow Rate, Alternate bites/solids and sips/liquids (1:1 ratio), Sitting upright and Remain sitting upright for 30 minutes after PO intake Recommend Repeat Modified Barium Swallow: No Need for Skilled Speech Therapy Services: No Recommended Referrals: GI Consult Education Completed: 1. Described result of evaluation. Status Active ST Patient: Active Contact Information [facility]:: Lucy Issa M.A. [facility]? Speech-Language Pathologist?? [place] [id number]?? [place] [address]?? [email or web address]?? [phone]
== END | disposition home or self-care (01) ==
PROVIDERS: PCP Internal Medicine; Referring Provider Nurse Practitioner; Visit Provider Nurse Practitioner
DX: R13.10 Dysphagia, unspecified (principal); I63.9 Cerebral infarction, unspecified
CPT/HCPCS: 74230; 92611